=== PATIENT | female | born 1950 | race Caucasian/White ===

== ENCOUNTER 2017-12-11 19:23 | Emergency (ER) | payer OTHER ==
[2017-12-11 20:18] LABS: Absolute Lymphocytes (CBC) 1.4 K/uL (0.7-4.9); Absolute Monocytes 0.5 K/uL (0.1-1.3); Absolute Neutrophil 2.6 K/uL (1.8-8.0); Basophils % 0.6 % (0-1.3); Eosinophils % 2.8 % (0-4.4); Hematocrit 38.1 % (36.0-45.0); Lymphocytes % 29.6 % (15.3-44.8); MCH 25.9 pg (27.0-35.0); MCV 80.2 fL (80-100); MPV 8.1 fL (7.6-11.3); Monocytes % 10.9 % (3.3-12.3); RBC Red Blood Cell Count 4.75 M/uL (3.86-4.86)
[2017-12-11 20:23] LABS: Urine Blood NEGATIVE (NEG); Urine Glucose NEGATIVE (NEG); Urine Protein NEGATIVE (NEG); Urine Specific Gravity 1.015 (1.005-1.030); Urine pH 5.5 (5.0-7.0)
[2017-12-11 20:27] LABS: Protime INR 0.97
[2017-12-11 20:39] LABS: Albumin 4.1 g/dL (3.2-5.5); Bilirubin Direct 0.3 mg/dL (0-0.2); Bilirubin Total 0.8 mg/dL (0.3-1.2); CKMB Creatine Kinase MB 1.2 ng/ml (0.3-4.0); Protein, Total 7.6 g/dL (6.0-8.3)
[2017-12-11 20:40] LABS: Potassium 4.4 mEq/L (3.6-5.0)
[2017-12-11] MEDS ORDERED: ASPIRIN 81 MG CHEWABLE TABLET ONE (20:54)
[2017-12-11] MEDS ORDERED: MAGNESIUM SULFATE 1 gm IVPB 1 GM/100 ML BAG IV ONE (20:54)
[2017-12-11] MEDS ORDERED: NA CHLORIDE 0.9% 1,000 ML ONE (20:54)
--- NOTE | 2017-12-11 21:05 | RAD REPORT ---
EXAM DESCRIPTION: Alex Single View12/11/2017 8:28 pm CLINICAL HISTORY: Hypertension COMPARISON: July 2017 FINDINGS: The lungs appear clear of acute infiltrate. The heart is mildly enlarged. Pacemaker leads are in place. IMPRESSION: No acute abnormalities displayed
[2017-12-11 21:44] LABS: Anisocytosis 1+; Blood Morphology Comment NOTED (NOT SEEN); Platelet Estimate ADEQ; Urine White Blood Cell Casts OK
[2017-12-11 22:41] LABS: CKMB Creatine Kinase MB 1.2 ng/ml (0.3-4.0)
--- NOTE | 2017-12-11 22:50 | ER ---
Nurse's Notes [facility] Name: Maryan Tripp Age: 67 yrs Sex: Female : 1950 Arrival Date: 12/11/2017 Time: 19:27 Bed 28 Private MD: Diagnosis: Chest pain, unspecified-defibrillator firing Presentation: 12/11 19:27 Presenting complaint: EMS states: "Patient was shopping at the mall and when she was in bs1 the elevator her pacemaker went off and patient felt a "shock", and reports her body is tingling all over, patient denies chest pain, shortness of breath or dizziness, blood pressure 115/75, heart rate 46-80s, rhythm going back and forth between sinus sylvie/paced rhythm.". Transition of care: patient was not received from another setting of care. Onset of symptoms was December 11, 2017 at 18:16. Care prior to arrival: None. 19:27 Method Of Arrival: EMS: [facility] bs1 19:27 Acuity: BRAYAN 3 bs1 Historical: - Allergies: 19:43 Sulfa (Sulfonamide Antibiotics); bs1 - Home Meds: 19:43 aspirin 81 mg Oral TbEC 1 tab once daily [Active]; carvedilol 3.125 mg Oral tab 1 tab 2 bs1 times per day [Active]; levothyroxine 100 mcg tab 1 tab once daily [Active]; trazodone 150 mg Oral tab 1 tab nightly [Active]; Plavix Oral [Active]; opreso [Active]; Iron CR Oral [Active]; Protonix Oral [Active]; buspirone 10 mg Oral tab 1 tab 2 times per day [Active]; citalopram 20 mg tab 1 tab once daily [Active]; topiramate Oral once daily [Active]; proair PRN [Active]; - PMHx: 19:43 cardiac stents; COPD; Pacemaker; Thyroid problem; bs1 - PSHx: 19:43 Heart stents; Cholecystectomy; ankle sx; wrist sx; melenoma back; diverticulitis; bs1 Hysterectomy; - Immunization history:: Adult Immunizations up to date. - Social history:: Smoking status: Patient/guardian denies using tobacco. - Family history:: not pertinent. Screenin:59 Abuse screen: Denies threats or abuse. Denies injuries from another. Nutritional bs1 screening: No deficits noted. Tuberculosis screening: No symptoms or risk factors identified. Fall Risk None identified. Assessment: 19:56 General: Appears in no apparent distress. uncomfortable, Behavior is cooperative, bs1 appropriate for age, anxious. Pain: Denies pain. Neuro: Level of Consciousness is awake, alert, obeys commands, Oriented to person, place, time, situation, Appropriate for age President/Gm Production & Live Experiences are equal bilaterally Moves all extremities. Gait is steady, Speech is normal. Cardiovascular: Denies chest pain, lightheadedness, palpitations, shortness of breath, syncope, Heart tones S1 S2 present Capillary refill < 3 seconds Patient's skin is warm and dry. Rhythm is atrial pacer. Cardiovascular: Patient's skin is warm and dry. Patient with Pacemaker. Respiratory: Airway is patent Trachea midline Respiratory effort is even, unlabored, Respiratory pattern is regular, symmetrical, Breath sounds are clear bilaterally. GI: No deficits noted. No signs and/or symptoms were reported involving the gastrointestinal system. Bowel sounds present X 4 quads. : No deficits noted. No signs and/or symptoms were reported regarding the genitourinary system. EENT: No deficits noted. No signs and/or symptoms were reported regarding the EENT system. Derm: No deficits noted. No signs and/or symptoms reported regarding the dermatologic system. Musculoskeletal: Circulation, motion, and sensation intact. Capillary refill < 3 seconds, Range of motion: intact in all extremities. 20:56 Reassessment: Patient appears in no apparent distress at this time. No changes from bs1 previously documented assessment. Patient and/or family updated on plan of care and expected duration. Pain level reassessed. Patient is alert, oriented x 3, equal unlabored respirations, skin warm/dry/pink. Pending lab results. 21:56 Reassessment: Patient appears in no apparent distress at this time. No changes from bs1 previously documented assessment. Patient and/or family updated on plan of care and expected duration. Pain level reassessed. Patient is alert, oriented x 3, equal unlabored respirations, skin warm/dry/pink. Patient anxious waiting for lab results and answers. Redrew cardiac enzymes. Pending results. No further needs at this time. 22:08 Reassessment: [employer] at bedside checking patients pacemaker. bs1 Vital Signs: 19:43 BP 183 / 93; Pulse 74; Resp 15; Temp 98.2(O); Pulse Ox 100% on R/A; Weight 90.26 kg bs1 (R); Height 5 ft. 7 in. (170.18 cm); Pain 0/10; 20:43 BP 147 / 93; Pulse 67; Resp 16; Pulse Ox 99% on R/A; bs1 21:43 BP 154 / 79; Pulse 70; Resp 16; Pulse Ox 98% ; bs1 22:43 BP 167 / 66; Pulse 59; Resp 16; Temp 98.0(O); Pulse Ox 100% on R/A; Pain 0/10; bs1 19:43 Body Mass Index 31.17 (90.26 kg, 170.18 cm) bs1 ED Course: 19:27 Patient arrived in ED. bs1 19:27 Adriana De Leon, SILVIA is Primary Nurse. bs1 19:30 Inserted saline lock: 20 gauge in right antecubital area, using aseptic technique. By bs1 Roslyn Bonilla RN. 19:31 Triage completed. bs1 19:35 Barrera Cool MD is Attending Physician. avani 20:02 Arm band placed on placed. bs1 20:03 Patient has correct armband on for positive identification. Placed in gown. Bed in low bs1 position. Call light in reach. Side rails up X 1. 20:27 X-ray completed. Portable x-ray completed in exam room. Patient tolerated procedure kc2 well. 21:30 Inserted saline lock: 22 gauge in left wrist, using aseptic technique. bs1 21:32 20G right AC infiltrated, new IV started to left wrist. bs1 22:49 Brock Aviles MD is Referral Physician. avani 23:11 No provider procedures requiring assistance completed. IV discontinued, bleeding bs1 controlled, No redness/swelling at site. Pressure dressing applied. Administered Medications: 21:00 Drug: Aspirin Chewable Tablet 162 mg Route: PO; bs1 23:09 Follow up: Response: No adverse reaction bs1 21:00 Drug: NS 0.9% 1000 ml Route: IV; Rate: 125 ml/hr; Site: right antecubital; bs1 21:00 Drug: Magnesium Sulfate 1 grams Route: IVPB; Infused Over: 1 hrs; Site: right bs1 antecubital; 23:13 Follow up: Response: No adverse reaction; IV Status: Completed infusion bs1 Outcome: 22:49 Discharge ordered by MD. varma 23:11 Discharged to home with friend, sent to front lobby to wait for friend. bs1 23:11 Condition: stable 23:11 Discharge instructions given to patient, Instructed on discharge instructions, follow up and referral plans. Demonstrated understanding of instructions, follow-up care, Patient states understanding of POC and following up with a production sampler. 23:13 Patient left the ED. bs1 Signatures: Barrera Cool MD MD cha Carr, Kelsie kc2 Salazar, Brittany, RN RN bs1
--- NOTE | 2017-12-11 22:50 | EDPHYS ---
Physician Documentation [facility] Name: Maryan Tripp Age: 67 yrs Sex: Female : 1950 Arrival Date: 12/11/2017 Time: 19:27 Bed 28 Private MD: ED Physician Barrera Cool HPI: 12/11 19:58 This 67 yrs old Female presents to ER via EMS with complaints of [facility] defibrillator fired x1. 19:58 The patient or guardian reports chest pain that is located primarily in the anterior avani chest wall. Onset: just prior to arrival. The pain does not radiate. Associated signs and symptoms: The patient has no apparent associated signs or symptoms. The chest pain is described as defib firing. Duration: The patient or guardian reports a single episode, that is now resolved. Modifying factors: The symptoms are alleviated by nothing. the symptoms are aggravated by nothing. Severity of pain: At its worst the pain was mild in the emergency department the pain has resolved and did so just prior to arrival. The patient has not experienced similar symptoms in the past. Historical: - Allergies: 19:43 Sulfa (Sulfonamide Antibiotics); bs1 - Home Meds: 19:43 aspirin 81 mg Oral TbEC 1 tab once daily [Active]; carvedilol 3.125 mg Oral tab 1 tab 2 bs1 times per day [Active]; levothyroxine 100 mcg tab 1 tab once daily [Active]; trazodone 150 mg Oral tab 1 tab nightly [Active]; Plavix Oral [Active]; opreso [Active]; Iron CR Oral [Active]; Protonix Oral [Active]; buspirone 10 mg Oral tab 1 tab 2 times per day [Active]; citalopram 20 mg tab 1 tab once daily [Active]; topiramate Oral once daily [Active]; proair PRN [Active]; - PMHx: 19:43 cardiac stents; COPD; Pacemaker; Thyroid problem; bs1 - PSHx: 19:43 Heart stents; Cholecystectomy; ankle sx; wrist sx; melenoma back; diverticulitis; bs1 Hysterectomy; - Immunization history:: Adult Immunizations up to date. - Social history:: Smoking status: Patient/guardian denies using tobacco. - Family history:: not pertinent. ROS: 19:58 Constitutional: Negative for fever, chills, and weight loss, Eyes: Negative for injury, avani pain, redness, and discharge, ENT: Negative for injury, pain, and discharge, Neck: Negative for injury, pain, and swelling, Cardiovascular: Negative for chest pain, palpitations, and edema, Respiratory: Negative for shortness of breath, cough, wheezing, and pleuritic chest pain, Abdomen/GI: Negative for abdominal pain, nausea, vomiting, diarrhea, and constipation, Back: Negative for injury and pain, : Negative for injury, bleeding, discharge, and swelling, MS/Extremity: Negative for injury and deformity, Skin: Negative for injury, rash, and discoloration, Neuro: Negative for headache, weakness, numbness, tingling, and seizure, Psych: Negative for depression, anxiety, suicide ideation, homicidal ideation, and hallucinations, Allergy/Immunology: Negative for hives, rash, and allergies, Endocrine: Negative for neck swelling, polydipsia, polyuria, polyphagia, and marked weight changes, Hematologic/Lymphatic: Negative for swollen nodes, abnormal bleeding, and unusual bruising. Exam: 19:59 Constitutional: This is a well developed, well nourished patient who is awake, alert, avani and in no acute distress. Head/Face: Normocephalic, atraumatic. Eyes: Pupils equal round and reactive to light, extra-ocular motions intact. Lids and lashes normal. Conjunctiva and sclera are non-icteric and not injected. Cornea within normal limits. Periorbital areas with no swelling, redness, or edema. ENT: Nares patent. No nasal discharge, no septal abnormalities noted. Tympanic membranes are normal and external auditory canals are clear. Oropharynx with no redness, swelling, or masses, exudates, or evidence of obstruction, uvula midline. Mucous membranes moist. Neck: Trachea midline, no thyromegaly or masses palpated, and no cervical lymphadenopathy. Supple, full range of motion without nuchal rigidity, or vertebral point tenderness. No Meningismus. Chest/axilla: Normal chest wall appearance and motion. Nontender with no deformity. No lesions are appreciated. Cardiovascular: Regular rate and rhythm with a normal S1 and S2. No gallops, murmurs, or rubs. Normal PMI, no JVD. No pulse deficits. Respiratory: Lungs have equal breath sounds bilaterally, clear to auscultation and percussion. No rales, rhonchi or wheezes noted. No increased work of breathing, no retractions or nasal flaring. Abdomen/GI: Soft, non-tender, with normal bowel sounds. No distension or tympany. No guarding or rebound. No evidence of tenderness throughout. Back: No spinal tenderness. No costovertebral tenderness. Full range of motion. Skin: Warm, dry with normal turgor. Normal color with no rashes, no lesions, and no evidence of cellulitis. MS/ Extremity: Pulses equal, no cyanosis. Neurovascular intact. Full, normal range of motion. Neuro: Awake and alert, GCS 15, oriented to person, place, time, and situation. Cranial nerves II-XII grossly intact. Motor strength 5/5 in all extremities. Sensory grossly intact. Cerebellar exam normal. Normal gait. Psych: Awake, alert, with orientation to person, place and time. Behavior, mood, and affect are within normal limits. Vital Signs: 19:43 BP 183 / 93; Pulse 74; Resp 15; Temp 98.2(O); Pulse Ox 100% on R/A; Weight 90.26 kg bs1 (R); Height 5 ft. 7 in. (170.18 cm); Pain 0/10; 20:43 BP 147 / 93; Pulse 67; Resp 16; Pulse Ox 99% on R/A; bs1 21:43 BP 154 / 79; Pulse 70; Resp 16; Pulse Ox 98% ; bs1 22:43 BP 167 / 66; Pulse 59; Resp 16; Temp 98.0(O); Pulse Ox 100% on R/A; Pain 0/10; bs1 19:43 Body Mass Index 31.17 (90.26 kg, 170.18 cm) bs1 MDM: 19:35 Patient medically screened. [facility] 20:00 Data reviewed: vital signs, nurses notes, EMS record, lab test result(s), EKG, [facility] radiologic studies, plain films. 12/11 19:57 Order name: Basic Metabolic Panel [facility] 12/11 19:57 Order name: BNP [facility] 12/11 19:57 Order name: CBC with Diff [facility] 12/11 19:57 Order name: Ckmb [facility] 12/11 19:57 Order name: CPK [facility] 12/11 19:57 Order name: LFT's [facility] 12/11 19:57 Order name: Magnesium [facility] 12/11 19:57 Order name: PT-INR [facility] 12/11 19:57 Order name: Ptt, Activated [facility] 12/11 19:57 Order name: Troponin (emerg Dept Use Only) [facility] 12/11 19:57 Order name: Lipase [facility] 12/11 19:57 Order name: Urine Culture [facility] 12/11 20:17 Order name: Urine Dipstick--Ancillary (enter results) em1 12/11 20:19 Order name: CBC with Automated Diff; Complete Time: 22:05 EDSD 12/11 20:24 Order name: Urine Dipstick-Ancillary; Complete Time: 21:16 EDSD 12/11 20:32 Order name: Protime (+INR); Complete Time: 21:16 EDSD 12/11 20:32 Order name: PTT, Activated Partial Thromb; Complete Time: 21:16 EDSD 12/11 20:33 Order name: Basic Metabolic Panel; Complete Time: 21:16 EDSD 12/11 20:33 Order name: Lipase; Complete Time: 21:16 EDSD 12/11 20:36 Order name: Troponin (Emerg Dept Use Only); Complete Time: 21:16 EDSD 12/11 20:39 Order name: Liver (Hepatic) Function; Complete Time: 21:16 EDSD 12/11 20:39 Order name: CKMB Creatine Kinase MB; Complete Time: 21:16 EDSD 12/11 20:39 Order name: Magnesium; Complete Time: 21:16 EDSD 12/11 20:39 Order name: BNP B-Type Natriuretic Peptide; Complete Time: 21:16 EDSD 12/11 20:40 Order name: Creatine Phosphokinase; Complete Time: 21:16 EDSD 12/11 21:18 Order name: Ckmb [facility] 12/11 21:18 Order name: Creatine Phosphokinase [facility] 12/11 21:18 Order name: Troponin (emerg Dept Use Only) [facility] 12/11 21:45 Order name: CBC Smear Scan; Complete Time: 22:05 EDSD 12/11 22:38 Order name: Troponin (Emerg Dept Use Only); Complete Time: 22:48 EDSD 12/11 19:57 Order name: XRAY Chest (1 view) [facility] 12/11 19:57 Order name: EKG; Complete Time: 19:58 [facility] 03/20 19:57 Order name: Cardiac monitoring; Complete Time: 20:04 [facility] 12/11 19:57 Order name: EKG - Nurse/Tech; Complete Time: 20:04 [facility] 12/11 19:57 Order name: IV Saline Lock; Complete Time: 20:04 [facility] 12/11 19:57 Order name: Labs collected and sent; Complete Time: 20:04 [facility] 12/11 19:57 Order name: O2 Per Protocol; Complete Time: 20:04 [facility] 12/11 19:57 Order name: O2 Sat Monitoring; Complete Time: 20:04 [facility] 12/11 19:57 Order name: Urine Dipstick-Ancillary (obtain specimen); Complete Time: 20:16 [facility] 12/11 21:06 Order name: RAD; Complete Time: 21:16 EDMS 12/11 21:18 Order name: Repeat Cardiac Enzymes at: 945 pm; Complete Time: 23:09 [facility] 12/11 22:41 Order name: CKMB Creatine Kinase MB; Complete Time: 22:50 EDMS 12/11 22:50 Order name: Creatine Phosphokinase; Complete Time: 22:50 EDMS Administered Medications: 21:00 Drug: Aspirin Chewable Tablet 162 mg Route: PO; bs1 23:09 Follow up: Response: No adverse reaction bs1 21:00 Drug: NS 0.9% 1000 ml Route: IV; Rate: 125 ml/hr; Site: right antecubital; bs1 21:00 Drug: Magnesium Sulfate 1 grams Route: IVPB; Infused Over: 1 hrs; Site: right bs1 antecubital; 23:13 Follow up: Response: No adverse reaction; IV Status: Completed infusion bs1 Disposition: 12/11/17 22:49 Discharged to Home. Impression: Chest pain, unspecified - defibrillator firing. - Condition is Stable. - Discharge Instructions: Nonspecific Chest Pain, Nonspecific Chest Pain, [id number], Electrocardiography, [id number], Aspirin and Your Heart. - Medication Reconciliation Form, Thank You Letter, Antibiotic Education, Prescription Opioid Use form. - Follow up: Private Physician; When: 1 - 2 days; Reason: Recheck today's complaints, Continuance of care, Re-evaluation by your physician. Follow up: Brock Aviles MD; When: 2 - 3 days; Reason: Recheck today's complaints, Re-evaluation by your physician. - Problem is new. - Symptoms have improved. Signatures: Dispatcher [employer] Barrera Lucio MD MD cha Salazar, Brittany, RN RN bs1
[2017-12-11 23:23] VITALS: BP 167/66; TEMP 98; O2SAT 100
--- NOTE | 2017-12-12 05:54 | EKG ---
Test Date: 2017-12-11 Test Time: 19:32:56 [employer] Service Advisor: TOMI MEASUREMENT RESULTS: Intervals: Rate: 73 ME: 162 QRSD: 136 QT: 412 QTc: 453 [place]: P: 18 ME: 162 QRS: -16 T: 243 INTERPRETIVE STATEMENTS: Atrial-sensed ventricular-paced rhythm Compared to ECG 08/03/2017 13:43:29 No significant changes Electronically Signed On 12-12-17 05:54:13 CDT by Ruben Rosa
== END 2017-12-11 23:13 | disposition home or self-care (01) ==
LOC: ER 19:23
DX: T82.198A Other mechanical complication of other cardiac electronic device, initial encounter (principal); J44.9 Chronic obstructive pulmonary disease, unspecified; E07.9 Disorder of thyroid, unspecified; Z95.818 Presence of other cardiac implants and grafts; Z95.810 Presence of automatic (implantable) cardiac defibrillator; Z88.2 Allergy status to sulfonamides; Z79.01 Long term (current) use of anticoagulants; Z79.82 Long term (current) use of aspirin
CPT/HCPCS: 36415; 71045; 80048; 80076; 81003; 82550 ×2; 82553 ×2; 83690; 83735; 83880; 84484 ×2; 85025; 85610; 85730; 87086; 87088; 93005; 96365; 96366; 99284; J3475; J7030

== ENCOUNTER 2018-02-14 18:27 | Observation (INO) | payer OTHER ==
[2018-02-14] MEDS ORDERED: NITROGLYCERIN 0.4 MG/TAB SL ONE (19:16)
[2018-02-14] MEDS ORDERED: NA CHLORIDE 0.9% 500 ML ONE (19:36)
--- NOTE | 2018-02-14 20:07 | RAD REPORT ---
EXAM DESCRIPTION: Alex Single View02/14/2018 7:08 pm CLINICAL HISTORY: Chest pain COMPARISON: November 2017 FINDINGS: The lungs appear clear of acute infiltrate. The heart is mildly enlarged. Pacemaker leads are in place. IMPRESSION: No acute abnormalities displayed
[2018-02-14] MEDS ORDERED: Morphine 2 MG/2 ML SYR ONE ×2 (21:31→23:37)
[2018-02-14 22:04] LABS: Absolute Lymphocytes (CBC) 1.1 K/uL (0.7-4.9); Absolute Monocytes 0.5 K/uL (0.1-1.3); Absolute Neutrophil 2.5 K/uL (1.8-8.0); Basophils % 0.7 % (0-1.3); Eosinophils % 3.1 % (0-4.4); Hematocrit 38.2 % (36.0-45.0); Lymphocytes % 25.6 % (15.3-44.8); MCH 27.7 pg (27.0-35.0); MCV 84.2 fL (80-100); MPV 8.1 fL (7.6-11.3); Monocytes % 11.2 % (3.3-12.3); RBC Red Blood Cell Count 4.54 M/uL (3.86-4.86)
[2018-02-14 22:07] LABS: Protime INR 0.94
[2018-02-14 22:09] LABS: Potassium 3.5 mEq/L (3.6-5.0)
[2018-02-14 22:16] LABS: Albumin 3.9 g/dL (3.2-5.5); Bilirubin Direct 0.1 mg/dL (0-0.2); Bilirubin Total 0.6 mg/dL (0.3-1.2)
[2018-02-14 22:18] LABS: CKMB Creatine Kinase MB 1.1 ng/ml (0.3-4.0)
[2018-02-14] MEDS ORDERED: ENOXAPARIN 80 MG/0.8 ML SQ ONE (23:36)
--- NOTE | 2018-02-14 23:51 | ER ---
Nurse's Notes [facility] Name: Maryan Tripp Age: 68 yrs Sex: Female : 1950 Arrival Date: 02/14/2018 Time: 18:33 Bed 6 Private MD: Diagnosis: Chest pain, unspecified Presentation: 02/14 18:36 Presenting complaint: EMS states: Patient reports her ICD has been "going off" and is ae1 experiencing chest pain 12/01. Transition of care: patient was not received from another setting of care. Onset of symptoms was February 14, 2018. Risk Assessment: Do you want to hurt yourself or someone else? Patient reports no desire to harm self or others. Care prior to arrival: Medication(s) given: ASA, 81 mg, x 4. 18:36 Method Of Arrival: EMS: [facility] ae1 18:36 Acuity: BRAYAN 2 ae1 18:48 Initial Sepsis Screen: Does the patient meet any 2 criteria? No. Patient's initial ae1 sepsis screen is negative. Does the patient have a suspected source of infection? No. Patient's initial sepsis screen is negative. Triage Assessment: 18:41 General: Appears in no apparent distress. comfortable, Behavior is calm, cooperative. ae1 Pain: Complains of pain in chest Pain currently is 3 out of 10 on a pain scale. Neuro: Level of Consciousness is awake, alert, obeys commands, Oriented to person, place, time, situation. Cardiovascular: Patient's skin is warm and dry. Respiratory: Airway is patent Respiratory effort is even, unlabored, Respiratory pattern is regular, symmetrical. Historical: - Allergies: 18:47 Sulfa (Sulfonamide Antibiotics); ae1 - Home Meds: 18:47 aspirin 81 mg Oral TbEC 1 tab once daily [Active]; buspirone 10 mg Oral tab 1 tab 2 ae1 times per day [Active]; carvedilol 3.125 mg Oral tab 1 tab 2 times per day [Active]; citalopram 20 mg tab 1 tab once daily [Active]; Iron CR Oral [Active]; levothyroxine 100 mcg tab 1 tab once daily [Active]; opreso [Active]; Plavix 75 mg oral tab [Active]; proair PRN [Active]; Protonix Oral [Active]; topiramate Oral once daily [Active]; trazodone 150 mg Oral tab 1 tab nightly [Active]; - PMHx: 18:47 cardiac stents; COPD; Pacemaker; Thyroid problem; ae1 - Immunization history:: Adult Immunizations up to date, Pneumococcal vaccine is up to date, Flu vaccine is up to date. - Social history:: Smoking status: Patient/guardian denies using tobacco, but has a distant history of tobacco abuse. - Ebola Screening: : Patient negative for fever greater than or equal to 101.5 degrees Fahrenheit, and additional compatible Ebola Virus Disease symptoms. Screenin:48 Abuse screen: Denies threats or abuse. Nutritional screening: No deficits noted. ae1 Tuberculosis screening: No symptoms or risk factors identified. Fall Risk None identified. Assessment: 18:49 Pain: Pain began suddenly. ae1 19:10 General: Appears in no apparent distress. uncomfortable, Behavior is calm, cooperative, ao appropriate for age. Pain: Complains of pain in chest Pain does not radiate. Pain currently is 6 out of 10 on a pain scale. Neuro: Level of Consciousness is awake, alert, obeys commands, Oriented to person, place, time, situation, Appropriate for age Moves all extremities. Speech is normal, Facial symmetry appears normal. Cardiovascular: Capillary refill < 3 seconds Patient's skin is warm and dry. Respiratory: Airway is patent Respiratory effort is even, unlabored, Respiratory pattern is regular, symmetrical. GI: Abdomen is non-distended. : No signs and/or symptoms were reported regarding the genitourinary system. EENT: No signs and/or symptoms were reported regarding the EENT system. Derm: No signs and/or symptoms reported regarding the dermatologic system. 19:48 Reassessment: Patient BP drop after given Nitro Sublingual. Les ROOM MAID notified and ao order 500 ML bolus. 20:30 Reassessment: Patient appears in no apparent distress at this time. Patient and/or ao family updated on plan of care and expected duration. Pain level reassessed. Patient is alert, oriented x 3, equal unlabored respirations, skin warm/dry/pink. 21:52 Reassessment: Patient appears in no apparent distress at this time. Patient and/or ao family updated on plan of care and expected duration. Pain level reassessed. Patient is alert, oriented x 3, equal unlabored respirations, skin warm/dry/pink. Started an guided ultrasound IV since lab was called few times and no one show up. Blood has been drawn and send. 22:40 Reassessment: Patient appears in no apparent distress at this time. Patient and/or ao family updated on plan of care and expected duration. Pain level reassessed. Patient is alert, oriented x 3, equal unlabored respirations, skin warm/dry/pink. 22:40 Reassessment: Patient appears in no apparent distress at this time. Patient and/or ao family updated on plan of care and expected duration. Pain level reassessed. Patient is alert, oriented x 3, equal unlabored respirations, skin warm/dry/pink. Patient to be admitted to the hospital. Patient agree with the POC. 23:40 Reassessment: Patient appears in no apparent distress at this time. Patient and/or ao family updated on plan of care and expected duration. Pain level reassessed. Patient is alert, oriented x 3, equal unlabored respirations, skin warm/dry/pink. 02/15 00:48 Reassessment: Patient appears in no apparent distress at this time. Patient and/or ao family updated on plan of care and expected duration. Pain level reassessed. Patient is alert, oriented x 3, equal unlabored respirations, skin warm/dry/pink. Patient to be taken to her hospital bed. 01:15 Reassessment: report called to Monika VEGA for room 424. bb Vital Signs: 02/14 18:34 BP 167 / 82; Pulse 61; Resp 17; Temp 97.8(O); Pulse Ox 96% on R/A; Weight 90.72 kg (R); ae1 19:10 BP 155 / 74; Pulse 66; Resp 18; Pulse Ox 98% ; Pain 6/10; ao 19:40 BP 92 / 62; Pulse 62; Resp 16; Pulse Ox 96% ; ao 19:52 BP 107 / 64; Pulse 70; Resp 16; Pulse Ox 96% ; Pain 4/10; ao 20:50 BP 135 / 64; Pulse 64; Resp 16; Pulse Ox 97% on R/A; ao 21:52 BP 142 / 75; Pulse 60; Resp 16; Pulse Ox 98% ; Pain 0/10; ao 22:40 BP 138 / 54; Pulse 64; Resp 18; Pulse Ox 98% on R/A; Pain 0/10; ao 23:39 BP 137 / 52; Pulse 62; Resp 18; Pulse Ox 97% ; ao 23:40 BP 128 / 54; Pulse 64; Resp 18; Pulse Ox 98% on R/A; ao 02/15 00:48 BP 124 / 53; Pulse 64; Resp 16; Pulse Ox 100% on R/A; ao ED Course: 02/14 18:33 Patient arrived in ED. ae1 18:41 Triage completed. ae1 18:42 Arm band placed on right wrist. EKG completed in triage. Results shown to MD. ae1 18:44 Les Moore NP is PHCP. pm1 18:44 Sonu Zuluaga MD is Attending Physician. pm1 18:48 Placed in gown. Bed in low position. Call light in reach. Side rails up X2. Cardiac ae1 monitor on. Pulse ox on. NIBP on. Warm blanket given. 18:48 Patient maintains SpO2 saturation greater than 95% on room air. ae1 19:06 X-ray completed. Portable x-ray completed in exam room. Patient tolerated procedure ml well. 19:07 XRAY Chest (1 view) In Process Unspecified. EDMS 19:09 Chidi Carlson, RN is Primary Nurse. ao 21:50 Inserted saline lock: 20 gauge in right antecubital area, using aseptic technique. ao ,using aseptic technique. Ultrasound guided IV Blood collected. 23:49 Juan Pizarro MD is Hospitalizing Provider. pm1 02/15 01:16 No provider procedures requiring assistance completed. Patient admitted, IV remains in bb place. Administered Medications: 02/14 19:19 Drug: Nitroglycerin 0.4 mg Route: Sublingual; ao 19:47 Drug: NS 0.9% 500 ml Route: IV; Rate: bolus; Site: left antecubital; ao 21:20 Drug: morphine 2 mg Route: IVP; Site: left antecubital; ao 23:35 Drug: morphine 2 mg Route: IVP; Site: left antecubital; ao 23:48 Drug: Lovenox 1 mg/kg Route: Sub-Q; Site: abdomen; ao Outcome: 23:50 Decision to Hospitalize by Provider. pm1 02/15 01:16 Admitted to Tele accompanied by tech, via wheelchair, room 424, with chart, Report bb called to Monika VEGA Condition: stable Instructed on the need for admit. 02:06 Patient left the ED. ao Signatures: Dispatcher [employer] EDDaxa Soni RN RN Isabel Tena Alex, RN RN Les Wolff, ROOM MAID ROOM MAID pm1 Ray Gutierres RN RN ae1
--- NOTE | 2018-02-14 23:51 | EDPHYS ---
Physician Documentation [facility] Name: Maryan Tripp Age: 68 yrs Sex: Female : 1950 Arrival Date: 02/14/2018 Time: 18:33 Bed 6 Private MD: ED Physician Sonu Zuluaga HPI: 02/14 22:47 This 68 yrs old Female presents to ER via EMS with complaints of Chest Pain. pm1 22:47 The patient or guardian reports chest pain that is located primarily in the anterior pm1 aspect of left upper chest. Onset: today. The pain radiates to the left arm, left jaw. Associated signs and symptoms: Pertinent positives: diaphoresis, Pertinent negatives: abdominal pain, dizziness, headache, nausea, palpitations, shortness of breath, vomiting. The chest pain is described as aching. Duration: The patient or guardian reports a single episode, that is still ongoing. Modifying factors: The symptoms are alleviated by nothing. the symptoms are aggravated by nothing. Severity of pain: in the emergency department the pain is actually worse is a 3 / 10. EMS care prior to arrival includes: aspirin. The patient has experienced similar episodes in the past, several times. Patient last seen here in the ER for discharge of defibrillator on 12/11/2017. Interrogated and determined inappropriate discharge of defibrillator and discharged home. Patient has had no further discharge of defibrillator since then. 22:47 pacemaker/defibrillator 2008 and cardiac stent x 1. pm1 22:47 Onset of chest pain 1400 today. pm1 23:57 Patient's last cardiac cath, stress test and echocardiogram performed in 2014 in [email or web address] Historical: - Allergies: 18:47 Sulfa (Sulfonamide Antibiotics); ae1 - Home Meds: 18:47 aspirin 81 mg Oral TbEC 1 tab once daily [Active]; buspirone 10 mg Oral tab 1 tab 2 ae1 times per day [Active]; carvedilol 3.125 mg Oral tab 1 tab 2 times per day [Active]; citalopram 20 mg tab 1 tab once daily [Active]; Iron CR Oral [Active]; levothyroxine 100 mcg tab 1 tab once daily [Active]; opreso [Active]; Plavix 75 mg oral tab [Active]; proair PRN [Active]; Protonix Oral [Active]; topiramate Oral once daily [Active]; trazodone 150 mg Oral tab 1 tab nightly [Active]; - PMHx: 18:47 cardiac stents; COPD; Pacemaker; Thyroid problem; ae1 - Immunization history:: Adult Immunizations up to date, Pneumococcal vaccine is up to date, Flu vaccine is up to date. - Social history:: Smoking status: Patient/guardian denies using tobacco, but has a distant history of tobacco abuse. - Ebola Screening: : Patient negative for fever greater than or equal to 101.5 degrees Fahrenheit, and additional compatible Ebola Virus Disease symptoms. ROS: 23:46 Constitutional: Negative for fever, chills, and weight loss, Eyes: Negative for injury, pm1 pain, redness, and discharge, ENT: Negative for injury, pain, and discharge, Neck: Negative for injury, pain, and swelling. 23:46 Respiratory: Negative for shortness of breath, cough, wheezing, and pleuritic chest pain, Abdomen/GI: Negative for abdominal pain, nausea, vomiting, diarrhea, and constipation, Back: Negative for injury and pain, : Negative for injury, bleeding, discharge, and swelling, MS/Extremity: Negative for injury and deformity, Skin: Negative for injury, rash, and discoloration, Neuro: Negative for headache, weakness, numbness, tingling, and seizure. 23:46 Cardiovascular: Positive for chest pain, Negative for edema, orthopnea, palpitations. Exam: 23:46 Constitutional: This is a well developed, well nourished patient who is awake, alert, pm1 and in no acute distress. Head/Face: Normocephalic, atraumatic. Eyes: Pupils equal round and reactive to light, extra-ocular motions intact. Lids and lashes normal. Conjunctiva and sclera are non-icteric and not injected. Cornea within normal limits. Periorbital areas with no swelling, redness, or edema. ENT: Nares patent. No nasal discharge, no septal abnormalities noted. Tympanic membranes are normal and external auditory canals are clear. Oropharynx with no redness, swelling, or masses, exudates, or evidence of obstruction, uvula midline. Mucous membranes moist. Neck: Trachea midline, no thyromegaly or masses palpated, and no cervical lymphadenopathy. Supple, full range of motion without nuchal rigidity, or vertebral point tenderness. No Meningismus. Chest/axilla: Normal chest wall appearance and motion. Nontender with no deformity. No lesions are appreciated. 23:46 Respiratory: Lungs have equal breath sounds bilaterally, clear to auscultation and percussion. No rales, rhonchi or wheezes noted. No increased work of breathing, no retractions or nasal flaring. Abdomen/GI: Soft, non-tender, with normal bowel sounds. No distension or tympany. No guarding or rebound. No evidence of tenderness throughout. Back: No spinal tenderness. No costovertebral tenderness. Full range of motion. Skin: Warm, dry with normal turgor. Normal color with no rashes, no lesions, and no evidence of cellulitis. MS/ Extremity: Pulses equal, no cyanosis. Neurovascular intact. Full, normal range of motion. 23:46 Cardiovascular: Rate: normal, Pulses: no pulse deficits are appreciated, Pulses are 2+ in right radial artery and left radial artery. Heart sounds: normal, Edema: is not appreciated. 23:46 ECG was reviewed by the Attending Physician. ventricular paced 23:46 Neuro: Orientation: is normal, Motor: is normal, moves all fours, Sensation: is normal, no obvious gross deficits. Vital Signs: 18:34 BP 167 / 82; Pulse 61; Resp 17; Temp 97.8(O); Pulse Ox 96% on R/A; Weight 90.72 kg (R); ae1 19:10 BP 155 / 74; Pulse 66; Resp 18; Pulse Ox 98% ; Pain 6/10; ao 19:40 BP 92 / 62; Pulse 62; Resp 16; Pulse Ox 96% ; ao 19:52 BP 107 / 64; Pulse 70; Resp 16; Pulse Ox 96% ; Pain 4/10; ao 20:50 BP 135 / 64; Pulse 64; Resp 16; Pulse Ox 97% on R/A; ao 21:52 BP 142 / 75; Pulse 60; Resp 16; Pulse Ox 98% ; Pain 0/10; ao 22:40 BP 138 / 54; Pulse 64; Resp 18; Pulse Ox 98% on R/A; Pain 0/10; ao 23:39 BP 137 / 52; Pulse 62; Resp 18; Pulse Ox 97% ; ao 23:40 BP 128 / 54; Pulse 64; Resp 18; Pulse Ox 98% on R/A; ao 02/15 00:48 BP 124 / 53; Pulse 64; Resp 16; Pulse Ox 100% on R/A; ao MDM: 02/14 18:44 Patient medically screened. pm1 23:58 Data reviewed: vital signs. Physician consultation: Juan Pizarro MD was called at pm1 23:58, was contacted at 23:58, regarding admission, patient's condition, and will see patient. 02/14 18:51 Order name: Basic Metabolic Panel; Complete Time: 22:40 pm02/14 18:51 Order name: BNP; Complete Time: 22:40 pm02/14 18:51 Order name: CBC with Diff; Complete Time: 22:40 pm02/14 18:51 Order name: Ckmb; Complete Time: 22:40 pm02/14 18:51 Order name: CPK; Complete Time: 22:40 pm02/14 18:51 Order name: LFT's; Complete Time: 22:40 pm02/14 18:51 Order name: Magnesium; Complete Time: 22:40 pm02/14 18:51 Order name: PT-INR; Complete Time: 22:40 pm02/14 18:51 Order name: Ptt, Activated; Complete Time: 22:40 pm02/14 18:51 Order name: Troponin (emerg Dept Use Only); Complete Time: 22:16 pm02/14 18:51 Order name: XRAY Chest (1 view); Complete Time: 20:17 pm02/14 18:51 Order name: EKG; Complete Time: 18:52 pm02/14 18:51 Order name: Cardiac monitoring; Complete Time: 19:06 pm02/14 18:51 Order name: EKG - Nurse/Tech; Complete Time: 19:06 pm02/14 18:51 Order name: IV Saline Lock; Complete Time: 19:06 pm02/14 18:51 Order name: Labs collected and sent; Complete Time: 21:49 pm02/14 18:51 Order name: O2 Per Protocol; Complete Time: 19:06 pm02/14 18:51 Order name: O2 Sat Monitoring; Complete Time: 19:06 pm02/14 18:51 Order name: Urine Dipstick-Ancillary (obtain specimen); Complete Time: 21:50 pm1 Administered Medications: 19:19 Drug: Nitroglycerin 0.4 mg Route: Sublingual; ao 19:47 Drug: NS 0.9% 500 ml Route: IV; Rate: bolus; Site: left antecubital; ao 21:20 Drug: morphine 2 mg Route: IVP; Site: left antecubital; ao 23:35 Drug: morphine 2 mg Route: IVP; Site: left antecubital; ao 23:48 Drug: Lovenox 1 mg/kg Route: Sub-Q; Site: abdomen; ao Disposition: 02/15 10:47 Co-signature as Attending Physician, Sonu Zuluaga MD I agree with the assessment and kdr plan of care. Disposition: 02/14/18 23:50 Hospitalization ordered by Juan Pizarro for Observation. Preliminary diagnosis is Chest pain, unspecified. - Bed requested for Telemetry/MedSurg (observation). - Status is Observation. ao - Condition is Stable. - Problem is new. - Symptoms have improved. UTI on Admission? No Signatures: Dispatcher [employer] EDNJ Mariel Corea RN RN mw Rittger, Kevin, MD MD [facility] Chidi Carlson RN RN ao Marinas, Patrick, SOCIAL WORK LECTURER SOCIAL WORK LECTURER pm1 Ray Gutierres RN RN ae1 Corrections: (The following items were deleted from the chart) 02/14 23:57 23:50 Hospitalization Ordered by Juan Pizarro MD for Observation. Preliminary mw diagnosis is Chest pain, unspecified. Bed requested for Telemetry/MedSurg (observation). Status is Observation. Condition is Stable. Problem is new. Symptoms have improved. UTI on Admission? No. pm1 02/15 02:06 02/14 23:57 02/14/2018 23:50 Hospitalization Ordered by Juan Pizarro MD for ao Observation. Preliminary diagnosis is Chest pain, unspecified. Bed requested for Telemetry/MedSurg (observation). Status is Observation. Condition is Stable. Problem is new. Symptoms have improved. UTI on Admission? No. mw
[2018-02-15] MEDS ORDERED: ACETAMINOPHEN 500 MG TAB PO PRN (01:03)
[2018-02-15] MEDS ORDERED: MORPHINE 4 MG/ML SYR IV PRN (01:03)
[2018-02-15] MEDS ORDERED: ALPRAZOLAM 0.25 MG TABLET PO PRN (01:03)
[2018-02-15 02:37] VITALS: BMI 31.8
[2018-02-15] MEDS ORDERED: POTASSIUM 25 MEQ EFFERV TAB PO ONE (03:00)
[2018-02-15] MEDS ORDERED: FUROSEMIDE 20 MG TABLET PO PRN (06:12)
[2018-02-15] MEDS ORDERED: LEVOTHYROXINE SOD 0.1 MG TAB PO SCH (06:39)
--- NOTE | 2018-02-15 06:56 | EKG ---
Test Date: 2018-02-14 Test Time: 18:34:38 Director Medical Economics: ANDREINA MEASUREMENT RESULTS: Intervals: Rate: 63 MD: 174 QRSD: 128 QT: 432 QTc: 442 [place]: P: 22 MD: 174 QRS: 16 T: -62 INTERPRETIVE STATEMENTS: Atrial-sensed ventricular-paced rhythm Abnormal ECG Compared to ECG 12/11/2017 19:32:56 No significant changes Electronically Signed On 02-15-18 06:55:09 CDT by Brock Aviles
[2018-02-15] MEDS ORDERED: BUSPIRONE HCL 5 MG TABLET PO PRN (07:00)
[2018-02-15 08:38] VITALS: O2SAT 94
[2018-02-15] MEDS ORDERED: CARVEDILOL 3.125 MG TAB PO SCH (09:00)
[2018-02-15] MEDS ORDERED: ASPIRIN EC 81 MG TAB PO SCH (09:00)
[2018-02-15] MEDS ORDERED: ENOXAPARIN 40 MG/0.4 ML SQ SCH (09:00)
[2018-02-15] MEDS ORDERED: CITALOPRAM 10 MG TABLET PO SCH (09:00)
[2018-02-15] MEDS ORDERED: METOPROLOL TAR 50 MG TAB PO SCH (09:00)
[2018-02-15] MEDS ORDERED: MESALAMINE PO SCH (09:00)
[2018-02-15] MEDS ORDERED: CLOPIDOGREL 75 MG TABLET PO SCH (09:00)
[2018-02-15] MEDS ORDERED: PANTOPRAZOLE 40MG TABLET PO SCH (09:00)
[2018-02-15] MEDS ORDERED: ASPIRIN 81 MG CHEWABLE TABLET PO SCH (09:00)
--- NOTE | 2018-02-15 09:18 | P.HP ---
Certification for Inpatient Patient admitted to: Observation With expected LOS: <2 Midnights Patient will require the following post-hospital care: None Practitioner: I am a practitioner with admitting privileges, knowledge of patient current condition, hospital course, and medical plan of care. Services: Services provided to patient in accordance with Admission requirements found in Title 42 Section 412.3 of the Code of Federal Regulations Patient History Date of Service: 02/15/18 Reason for admission: CP r/o ACS History of Present Illness: Patient is a 68yo who was admitted to the hospital with chest discomfort. Patient was given nitro and morphine and her chest pain resolved. Patient also has some numbness and tingling of the left side of her are mentioned. That has resolved as well. Patient does have a history of coronary artery disease with stent placement. Patient also had a defibrillator placed. She had a shot deployed about a month ago. However her workup did not reveal any abnormal rhythms. The settings of the machine required adjustments. At this time, patient will be admitted to the hospital and will be ruled out for acute coronary syndrome. Patient will have serial troponins and will get cardiac workup prior to discharge. Allergies Sulfa (Sulfonamide Antibiotics) Allergy (Verified 12/22/16 21:05) Anaphylaxis Home Medications: Buspirone HCl [Buspar] 10 mg PO BID PRN 08/15/16 Levothyroxine [Synthroid*] 0.1 mg PO DAILY 08/15/16 Trazodone [Desyrel*] 150 mg PO BEDTIME 08/15/16 Aspirin 81 mg PO DAILY 08/03/17 Carvedilol 3.125 mg PO BID 08/03/17 Citalopram Hydrobromide [Citalopram HBr] 20 mg PO DAILY 08/03/17 Clopidogrel Bisulfate [Plavix] 75 mg PO DAILY 08/03/17 Ferrous Sulfate [Ferrous Sulfate*] 325 mg PO DAILY 02/15/18 Furosemide [Lasix] 20 mg PO DAILY PRN 02/15/18 Mesalamine [Apriso] 0.375 mg PO BID 02/15/18 Pantoprazole [Protonix Tab] 40 mg PO DAILY 02/15/18 - Past Medical/Surgical History Has patient received pneumonia vaccine in the past: Yes Diabetic: No -: Coronary artery disease, stent x1 -: Internal carotid defibrillator -: COPD -: Hypertension -: Hyperlipidemia -: Depression with anxiety -: Hypothyroidism -: Peripheral vascular disease -: diverticulosis -: Internal carotid defibrillator -: Cardiac stent -: leny -: hysterectomy -: left hip -: right ankle -: right wrist -: left shoulder skin cancer removed Psychosocial/ Personal History: She is , she has 1 child, she does not work. - Family History Mother Medical History: Cancer, Other (see notes) Notes: dementia Father Medical History: Heart disease - Social History Smoking Status: Never smoker Alcohol use: Yes CD- Drugs: No Caffeine use: Yes Place of Residence: Home Review of Systems 10-point ROS is otherwise unremarkable Physical Examination - Vital Signs Temperature: 97.6 F Blood Pressure: 151/70 Pulse: 61 Respirations: 18 Pulse Ox (%): 93 - Physical Exam General: Alert, In no apparent distress, Oriented x3 HEENT: Atraumatic, PERRLA, Mucous membr. moist/pink, EOMI, Sclerae nonicteric Neck: Supple, 2+ carotid pulse no bruit, No LAD, Without JVD or thyroid abnormality Respiratory: Clear to auscultation bilaterally, Normal air movement Cardiovascular: Regular rate/rhythm, Normal S1 S2, No murmurs Gastrointestinal: Normal bowel sounds, Soft and benign, Non-distended, No tenderness Musculoskeletal: No clubbing, No swelling, No tenderness Integumentary: No rashes Neurological: Normal gait, Normal speech, Normal strength at 5/5 x4 extr, Normal tone, Sensation intact, Cranial nerves 3-12 intact, Normal affect Lymphatics: No axilla or inguinal lymphadenopathy - Studies Laboratory Data (last 24 hrs) 02/14/18 21:44: PT 11.1, INR 0.94, APTT 26.1 02/14/18 21:44: WBC 4.3, Hgb 12.6, Hct 38.2, Plt Count 253 02/14/18 21:44: B-Natriuretic Peptide 77 02/14/18 21:44: Sodium 140, Potassium 3.5 L, BUN 12, Creatinine 0.91, Glucose 103, Magnesium 2.0, Total Bilirubin 0.6, AST 57 H, ALT 21, Alkaline Phosphatase 75 Assessment & Plan - Problems (Diagnosis) (1) Chest pain, rule out acute myocardial infarction Current Visit: Yes Status: Acute (2) History of coronary artery disease Current Visit: No Status: Acute (3) COPD (chronic obstructive pulmonary disease) Onset Date: 08/16/16 Current Visit: No Status: Chronic Qualifiers: (4) History of implantable cardioverter-defibrillator (ICD) placement Current Visit: No Status: Chronic (5) Hyperlipidemia Onset Date: 08/16/16 Current Visit: No Status: Chronic Qualifiers: (6) Hypertension Onset Date: 08/16/16 Current Visit: No Status: Chronic Qualifiers: (7) Hypothyroidism Onset Date: 08/16/16 Current Visit: No Status: Chronic Qualifiers: (8) Osteoporosis Onset Date: 08/16/16 Current Visit: No Status: Chronic - Plan 1. Serial troponins and EKG 2. Cardiology consultation 3. Echocardiogram and stress test 4. Anti-platelet therapy, anti coagulation, beta-reena, statin, and O2 as needed 5. IV morphine for pain 6. Nitro p.r.n. - Advance Directives Does patient have a Living Will: No Does patient have a Durable POA for Healthcare: No - Code Status/Comfort Care Code Status Assessed: Yes Code Status: Full Code Critical Care: No Time Spent Managing PTS Care (In Minutes): 50
--- NOTE | 2018-02-15 09:21 | P.SSS ---
Patient History Date of Service: 02/15/18 Reason for admission: CP r/o ACS History of Present Illness: Patient is a 68yo who was admitted to the hospital with chest discomfort. Patient was given nitro and morphine and her chest pain resolved. Patient also has some numbness and tingling of the left side of her are mentioned. That has resolved as well. Patient does have a history of coronary artery disease with stent placement. Patient also had a defibrillator placed. She had a shot deployed about a month ago. However her workup did not reveal any abnormal rhythms. The settings of the machine required adjustments. At this time, patient will be admitted to the hospital and will be ruled out for acute coronary syndrome. Patient will have serial troponins and will get cardiac workup prior to discharge. Allergies Sulfa (Sulfonamide Antibiotics) Allergy (Verified 12/22/16 21:05) Anaphylaxis Home Medications: Buspirone HCl [Buspar] 10 mg PO BID PRN 08/15/16 Levothyroxine [Synthroid*] 0.1 mg PO DAILY 08/15/16 Trazodone [Desyrel*] 150 mg PO BEDTIME 08/15/16 Aspirin 81 mg PO DAILY 08/03/17 Carvedilol 3.125 mg PO BID 08/03/17 Citalopram Hydrobromide [Citalopram HBr] 20 mg PO DAILY 08/03/17 Clopidogrel Bisulfate [Plavix*] 75 mg PO DAILY 08/03/17 Ferrous Sulfate [Ferrous Sulfate*] 325 mg PO DAILY 02/15/18 Furosemide [Lasix*] 20 mg PO DAILY PRN 02/15/18 Mesalamine [Apriso] 0.375 mg PO BID 02/15/18 Pantoprazole [Protonix Tab*] 40 mg PO DAILY 02/15/18 - Past Medical/Surgical History Has patient received pneumonia vaccine in the past: Yes Diabetic: No -: Coronary artery disease, stent x1 -: Internal carotid defibrillator -: COPD -: Hypertension -: Hyperlipidemia -: Depression with anxiety -: Hypothyroidism -: Peripheral vascular disease -: diverticulosis -: Internal carotid defibrillator -: Cardiac stent -: leny -: hysterectomy -: left hip -: right ankle -: right wrist -: left shoulder skin cancer removed Psychosocial/ Personal History: She is , she has 1 child, she does not work. - Family History Mother -: Cancer, Other (see notes) Notes: dementia Father -: Heart disease - Social History Smoking Status: Never smoker Alcohol use: Yes CD- Drugs: No Caffeine use: Yes Place of Residence: Home Physical Examination - Vital Signs Temperature: 97.6 F Blood Pressure: 151/70 Pulse: 61 Respirations: 18 Pulse Ox (%): 93 - Studies Laboratory Data (last 24 hrs) 02/14/18 21:44: PT 11.1, INR 0.94, APTT 26.1 02/14/18 21:44: WBC 4.3, Hgb 12.6, Hct 38.2, Plt Count 253 02/14/18 21:44: B-Natriuretic Peptide 77 02/14/18 21:44: Sodium 140, Potassium 3.5 L, BUN 12, Creatinine 0.91, Glucose 103, Magnesium 2.0, Total Bilirubin 0.6, AST 57 H, ALT 21, Alkaline Phosphatase 75 - Diagnosis (Problem(s)) (1) Chest pain, rule out acute myocardial infarction Current Visit: Yes Status: Acute (2) History of coronary artery disease Current Visit: No Status: Acute (3) COPD (chronic obstructive pulmonary disease) Onset Date: 08/16/16 Current Visit: No Status: Chronic Qualifiers: (4) History of implantable cardioverter-defibrillator (ICD) placement Current Visit: No Status: Chronic (5) Hyperlipidemia Onset Date: 08/16/16 Current Visit: No Status: Chronic Qualifiers: (6) Hypertension Onset Date: 08/16/16 Current Visit: No Status: Chronic Qualifiers: (7) Hypothyroidism Onset Date: 08/16/16 Current Visit: No Status: Chronic Qualifiers: (8) Osteoporosis Onset Date: 08/16/16 Current Visit: No Status: Chronic - Disposition Disposition: ROUTINE DISCHARGE Condition: GOOD Patient Discharge Instructions: OK TO DC IV AND DC HOME. FOLLOW-UP WITH PRIMARY CARE PROVIDER IN 1-2 WEEKS. FOLLOW-UP WITH CARDIOLOGY,Dr. Boateng, IN 1- 2 WEEKS. RETURN TO THE ER IF symptoms worsen. CALL or TEXT DR. WHYTE AT IF ANY QUESTIONS REGARDING HOSPITAL STAY. PLEASE CALL THE FLOOR AT IF ANY MEDICATION OR NURSING QUESTIONS. Diet: AHA Activity: Fall precautions
[2018-02-15] MEDS ORDERED: REGADENOSON 0.4 MG/5 ML SYR IV ONE (09:49)
[2018-02-15 11:43] VITALS: BP 141/78
--- NOTE | 2018-02-15 11:46 | RAD REPORT ---
EXAM DESCRIPTION: NM - Rest Stress Cardiac Imaging - 02/15/2018 11:02 am CLINICAL HISTORY: Chest pain. COMPARISON: None. TECHNIQUE: The patient was administered approximately 10mCi of Tc 99m Sestamibi prior to resting SPE CT imaging of the heart. The patient was then administered approximately 30 mCi of Tc 99m Sestamibi f ollowing exercise or pharmacologic stress. Multiplanar SPECT images were reviewed. FINDINGS: Mild diminished radiopharmaceutical accumulation is seen LV apex with stress. No fixed def ect is seen to suggest hibernating myocardium or scarred myocardium. Mild diminished anterior wall r adiopharmaceutical accumulation favored to represent breast attenuation artifact. The end diastolic volume is 88 ml, the end systolic volume is 42 ml, and the ejection fraction is 53 %. IMPRESSION: Small area of mild stress-induced ischemia involving the LV apex.
[2018-02-15 12:48] VITALS: TEMP 97.2
--- NOTE | 2018-02-15 17:34 | ECHO ---
HEIGHT: 5 ft 7 in WEIGHT: 203 lb 1.6 oz DATE OF STUDY: 02/15/[address]: Juan Pizarro MD 2-DIMENSIONAL: YES M.MODE: YES DOPPLER: YES COLOR FLOW: YES TDS: PORTABLE: DEFINITY: BUBBLE STUDY: DIAGNOSIS: CHEST PAIN, CORNARY ARTERY DISEASE CARDIAC HISTORY: CATHERIZATION: YES SURGERY: NO PROSTHETIC VALVE: NO PACEMAKER: YES MEASUREMENTS (cm) DIASTOLIC (NORMALS) SYSTOLIC (NORMALS) IVSd 0.9 (0.6-1.2) LA Diam 4.0 (1.9-4.0) LVEF 40-45% LVIDd 4.5 (3.5-5.7) LVIDs 3.6 (2.0-3.5) %FS 19% LVPWd 0.9 (0.6-1.2) Ao Diam 2.7 (2.0-3.7) 2 DIMENSIONAL ASSESSMENT: RIGHT ATRIUM: NORMAL LEFT ATRIUM: NORMAL RIGHT VENTRICLE: PACER LEFT VENTRICLE: NORMAL TRICUSPID VALVE: NORMAL MITRAL VALVE: NORMAL PULMONIC VALVE: NORMAL AORTIC VALVE: NORMAL PERICARDIAL EFFUSION: NONE AORTIC ROOT: NORMAL LEFT VENTRICULAR WALL MOTION: MILD GLOBAL HYPOKINESIS DOPPLER/COLOR FLOW: MILD TRICUSPID REGURGITATION. NORMAL RIGHT VENTRICULAR SYSTOLIC PRESSURE. COMMENTS: MILD GLOBAL HYPOKINESIS. PACER IN RIGHT VENTRICULAR APEX. MILD TRICUSPID REGURGITATION. EJECTION FRACTION 40-45% TECHNOLOGIST: TONO ALCANTAR
--- NOTE | 2018-02-15 18:08 | TREADPHA ---
DX: CHEST PAIN Date of Study: 02/15/2018 Ht: 5 7 Wt: 203 lb 1.6 oz Consulting Physician: MATI MEDICATIONS: TYLENOL, ASPIRIN, XANAX, BYSPAR, COREG, CELEXA, PLAVIX, LASIX, SYNTHROID, LOPRESSOR, PROTONIX, DESYREL HISTORY: 68 YEAR OLD FEMALE WITH CHEST PAIN. HISTORY OF HYPERTENSION, CONARY ARTERY DISEASE, PERCUTANEOUS CORNARY INTERVENTION, CHRONIC OBSTRUCTIVE PULMONARY DISEASE AND PACEMAKER. PHYSICIAL EXAMINATION: RESTING B.P.: 136/79 RESTING H.R.: 72 RESTING EKG: PACED RHYTHM PROTOCOL: EXERCISE TIME: 3:30 B.P. AT PEAK STRESS: 125/66 IMPRESSION: LEXISCAN INJECTED. CARDIOLITE INJECTED PER PROTOCOL. SEE NUCLEAR MEDICINE REPORT. NO CHEST PAIN. NO SUPRAVENTRICULAR TACHYCARDIA. NO VENTRICULAR TACHYCARDIA.
[2018-02-15] MEDS ORDERED: TRAZODONE 150 MG TAB PO SCH (21:00)
== END 2018-02-15 15:50 | disposition home or self-care (01) ==
LOC: ER 18:27 → ERHOLD 23:59 → 4TH 02-15 01:16
PROVIDERS: ADMIT Hospitalist; ATTEND Family Medicine
DX: R07.9 Chest pain, unspecified (principal); I25.10 Atherosclerotic heart disease of native coronary artery without angina pectoris; J44.9 Chronic obstructive pulmonary disease, unspecified; I10 Essential (primary) hypertension; E78.5 Hyperlipidemia, unspecified; F41.8 Other specified anxiety disorders; E03.9 Hypothyroidism, unspecified; I73.9 Peripheral vascular disease, unspecified; K57.90 Diverticulosis of intestine, part unspecified, without perforation or abscess without bleeding; M81.0 Age-related osteoporosis without current pathological fracture
CPT/HCPCS: 36415; 71045; 78452; 80048; 80061; 80076; 82550; 82553; 83735; 83880; 84484 ×3; 85025; 85610; 85730; 93005; 93017; 93306; 96372; 96374; 99285; A9500; J1650; J2270 ×2; J2785

== ENCOUNTER 2018-10-29 15:48 | Emergency (ER) | payer OTHER ==
--- OUTSIDE RECORDS SUMMARY | 2018-10-29 15:50 | XMS REPORT ---
:1950 [facility] Address [address] [place] [address] Dr. Brown [address] [place] [address] Care Team Providers Name Role Phone Unavailable Unavailable Unavailable Problems This patient has no known problems. Allergies, Adverse Reactions, Alerts This patient has no known allergies or adverse reactions. Medications This patient has no known medications.
--- NOTE | 2018-10-29 17:01 | ER ---
Nurse's Notes [facility] Name: Maryan Tripp Age: 68 yrs Sex: Female : 1950 Arrival Date: 10/29/2018 Time: 15:51 Bed 15 Private MD: Diagnosis: Weakness-shakiness after blood draw Presentation: 10/29 16:01 Presenting complaint: Patient states: Patient states "I was having blood drawn for my doctor and they took 6 vials of blood and I got all dizzy and shaky. I have never had that much blood taken before." Denies syncope. Transition of care: patient was not received from another setting of care. Onset of symptoms was October 29, 2018. Risk Assessment: Do you want to hurt yourself or someone else? Patient reports no desire to harm self or others. Initial Sepsis Screen: Does the patient meet any 2 criteria? No. Patient's initial sepsis screen is negative. Does the patient have a suspected source of infection? No. Patient's initial sepsis screen is negative. Care prior to arrival: None. 16:01 Method Of Arrival: Wheelchair 16:01 Acuity: BRAYAN 3 Triage Assessment: 16:03 General: Appears in no apparent distress. comfortable, Behavior is calm, cooperative, aj appropriate for age. Pain: Denies pain. Neuro: Level of Consciousness is awake, alert, obeys commands, Oriented to person, place, time, situation, Appropriate for age. Respiratory: Airway is patent Respiratory effort is even, unlabored, Respiratory pattern is regular, symmetrical. Derm: Skin is intact, is healthy with good turgor, Skin is pink, warm \\T\\ dry. normal. Historical: - Allergies: 16:03 Sulfa (Sulfonamide Antibiotics); - Home Meds: 16:03 aspirin 81 mg Oral TbEC 1 tab once daily [Active]; buspirone 10 mg Oral tab 1 tab 2 aj times per day [Active]; carvedilol 3.125 mg Oral tab 1 tab 2 times per day [Active]; citalopram 20 mg tab 1 tab once daily [Active]; Iron CR Oral [Active]; levothyroxine 100 mcg tab 1 tab once daily [Active]; opreso [Active]; Plavix 75 mg Oral tab [Active]; proair PRN [Active]; Protonix Oral [Active]; topiramate Oral once daily [Active]; trazodone 150 mg Oral tab 1 tab nightly [Active]; - PMHx: 16:03 cardiac stents; COPD; Pacemaker; Thyroid problem; aj - Immunization history:: Adult Immunizations up to date. - Social history:: Smoking status: Patient/guardian denies using tobacco. - Ebola Screening: : Patient negative for fever greater than or equal to 101.5 degrees Fahrenheit, and additional compatible Ebola Virus Disease symptoms Patient denies exposure to infectious person Patient denies travel to an Ebola-affected area in the 21 days before illness onset No symptoms or risks identified at this time. Screenin:10 Abuse screen: Denies threats or abuse. Nutritional screening: No deficits noted. rb1 Tuberculosis screening: No symptoms or risk factors identified. Fall Risk None identified. Assessment: 16:10 General: Appears in no apparent distress. comfortable, Behavior is calm, cooperative, rb1 Pt. reports only eating once around 12:00 today and then went and had blood work done. While having the blood work drawn the pt. felt shaky and weak. Blood was drawn at 1530 today.. General:. Pain: Complains of pain in head Pain currently is 8 out of 10 on a pain scale. Neuro: Level of Consciousness is awake, alert, obeys commands, Oriented to person, place, time, situation. Cardiovascular: Capillary refill < 3 seconds is brisk in bilateral fingers. Respiratory: Airway is patent Respiratory effort is even, unlabored, Respiratory pattern is regular, symmetrical. GI: Reports diarrhea. : No signs and/or symptoms were reported regarding the genitourinary system. Derm: Skin is pink, warm \\T\\ dry. Musculoskeletal: Range of motion: intact in all extremities. 17:00 Reassessment: Patient appears in no apparent distress at this time. No changes from rb1 previously documented assessment. Vital Signs: 16:03 BP 131 / 80; Pulse 75; Resp 19; Temp 98.1; Pulse Ox 100% on R/A; Weight 90.72 kg; aj Height 5 ft. 7 in. (170.18 cm); 16:19 BP 149 / 84 Supine; Pulse 74; Pulse Ox 98% on R/A; rb1 16:21 BP 143 / 80 Sitting; Pulse 81; Pulse Ox 98% on R/A; rb1 16:23 BP 124 / 81 Standing; Pulse 94; Pulse Ox 97% on R/A; rb1 17:02 BP 128 / 79; Pulse 74; Resp 16; Pulse Ox 99% on R/A; rb1 16:03 Body Mass Index 31.32 (90.72 kg, 170.18 cm) ED Course: 15:51 Patient arrived in ED. rg4 16:02 Triage completed. aj 16:03 Arm band placed on left wrist. Patient placed in an exam room. aj 16:04 Brooklyn Gaming F[facility]-C [facility]. kb 16:04 Abelino Gabriel MD is Attending Physician. kb 16:10 Patient has correct armband on for positive identification. Bed in low position. Call rb1 light in reach. Side rails up X 1. platen press feeder on. Pulse ox on. NIBP on. 16:29 Venus Mejia, RN is Primary Nurse. rb1 16:51 EKG done, by radiological technologist. reviewed by Brooklyn PAGE. sm3 17:23 No provider procedures requiring assistance completed. Patient did not have IV access rb1 during this emergency room visit. Administered Medications: No medications were administered Point of Care Testing: Blood Glucose: 16:21 Blood Glucose: 134 mg/dL; ms Ranges: Outcome: 17:00 Discharge ordered by MD. kb 17:23 Patient left the ED. rb1 17:23 Discharged to home ambulatory. rb1 17:23 Condition: stable 17:23 Discharge instructions given to patient, Instructed on discharge instructions, follow up and referral plans. Demonstrated understanding of instructions, follow-up care, Prescriptions given X none Signatures: Brooklyn Gaming FNP-C FNP-Ckb Myers, Amanda, RN RN aj Solis, Maria ms Barber, Rebecca, SILVIA RN rb1 Luisana Cotter rg4 Shania Griffin sm3 Corrections: (The following items were deleted from the chart) 16:51 16:21 BP 143 / 80; Pulse 81bpm; Pulse Ox 98% RA; rb1 rb1
--- NOTE | 2018-10-29 17:02 | EDPHYS ---
Physician Documentation [facility] Name: Maryan Tripp Age: 68 yrs Sex: Female : 1950 Arrival Date: 10/29/2018 Time: 15:51 Bed 15 Private MD: ED Physician Abelino Gabriel HPI: 10/29 16:17 This 68 yrs old Female presents to ER via Wheelchair with complaints of kb Weakness. 16:17 The patient presents with "shakiness after blood draw". Onset: The symptoms/episode kb began/occurred 1 hour(s) ago. Context: occurred at a hospital, occurred while the patient was undergoing a needle stick, just prior to the episode the patient experienced no apparent symptoms. Modifying factors: The symptoms are alleviated by nothing, the symptoms are aggravated by nothing. Associated signs and symptoms: Pertinent positives: "shakiness". Severity of symptoms: At their worst the symptoms were moderate in the emergency department the symptoms have improved. Patient's baseline: Neuro: alert and fully oriented, Motor: no deficits, Ambulation: walks without assistance, Speech: normal. The patient has not experienced similar symptoms in the past. The patient has been recently seen by a physician:. Pt reports she was at the lab, had 6 vials of blood taken and got shaky. States she has never had that much blood taken so she thinks it may have dehydrated her. Denies dizziness or lightheadedness, just described symptoms as shaky. Historical: - Allergies: 16:03 Sulfa (Sulfonamide Antibiotics); aj - Home Meds: 16:03 aspirin 81 mg Oral TbEC 1 tab once daily [Active]; buspirone 10 mg Oral tab 1 tab 2 aj times per day [Active]; carvedilol 3.125 mg Oral tab 1 tab 2 times per day [Active]; citalopram 20 mg tab 1 tab once daily [Active]; Iron CR Oral [Active]; levothyroxine 100 mcg tab 1 tab once daily [Active]; opreso [Active]; Plavix 75 mg Oral tab [Active]; proair PRN [Active]; Protonix Oral [Active]; topiramate Oral once daily [Active]; trazodone 150 mg Oral tab 1 tab nightly [Active]; - PMHx: 16:03 cardiac stents; COPD; Pacemaker; Thyroid problem; aj - Immunization history:: Adult Immunizations up to date. - Social history:: Smoking status: Patient/guardian denies using tobacco. - Ebola Screening: : Patient negative for fever greater than or equal to 101.5 degrees Fahrenheit, and additional compatible Ebola Virus Disease symptoms Patient denies exposure to infectious person Patient denies travel to an Ebola-affected area in the 21 days before illness onset No symptoms or risks identified at this time. ROS: 16:17 Constitutional: Negative for fever, chills, and weight loss, ENT: Negative for injury, kb pain, and discharge, Neck: Negative for injury, pain, and swelling, Cardiovascular: Negative for chest pain, palpitations, and edema, Respiratory: Negative for shortness of breath, cough, wheezing, and pleuritic chest pain, Abdomen/GI: Negative for abdominal pain, nausea, vomiting, diarrhea, and constipation, Back: Negative for injury and pain, MS/Extremity: Negative for injury and deformity, Skin: Negative for injury, rash, and discoloration. 16:17 Neuro: Positive for shakiness. Exam: 16:17 Constitutional: This is a well developed, well nourished patient who is awake, alert, kb and in no acute distress. Head/Face: Normocephalic, atraumatic. ENT: Nares patent. No nasal discharge, no septal abnormalities noted. Tympanic membranes are normal and external auditory canals are clear. Oropharynx with no redness, swelling, or masses, exudates, or evidence of obstruction, uvula midline. Mucous membranes moist. Neck: Trachea midline, no thyromegaly or masses palpated, and no cervical lymphadenopathy. Supple, full range of motion without nuchal rigidity, or vertebral point tenderness. No Meningismus. Chest/axilla: Normal chest wall appearance and motion. Nontender with no deformity. No lesions are appreciated. Cardiovascular: Regular rate and rhythm with a normal S1 and S2. No gallops, murmurs, or rubs. Normal PMI, no JVD. No pulse deficits. Respiratory: Lungs have equal breath sounds bilaterally, clear to auscultation and percussion. No rales, rhonchi or wheezes noted. No increased work of breathing, no retractions or nasal flaring. Abdomen/GI: Soft, non-tender, with normal bowel sounds. No distension or tympany. No guarding or rebound. No evidence of tenderness throughout. Skin: Warm, dry with normal turgor. Normal color with no rashes, no lesions, and no evidence of cellulitis. MS/ Extremity: Pulses equal, no cyanosis. Neurovascular intact. Full, normal range of motion. Neuro: Awake and alert, GCS 15, oriented to person, place, time, and situation. Cranial nerves II-XII grossly intact. Motor strength 5/5 in all extremities. Sensory grossly intact. Cerebellar exam normal. Normal gait. Vital Signs: 16:03 BP 131 / 80; Pulse 75; Resp 19; Temp 98.1; Pulse Ox 100% on R/A; Weight 90.72 kg; aj Height 5 ft. 7 in. (170.18 cm); 16:19 BP 149 / 84 Supine; Pulse 74; Pulse Ox 98% on R/A; rb1 16:21 BP 143 / 80 Sitting; Pulse 81; Pulse Ox 98% on R/A; rb1 16:23 BP 124 / 81 Standing; Pulse 94; Pulse Ox 97% on R/A; rb1 17:02 BP 128 / 79; Pulse 74; Resp 16; Pulse Ox 99% on R/A; rb1 16:03 Body Mass Index 31.32 (90.72 kg, 170.18 cm) aj MDM: 16:05 Patient medically screened. kb 16:21 Data reviewed: vital signs, nurses notes. Data interpreted: Pulse oximetry: on room air kb is 100 %. Interpretation: normal. ED course: Pt standing at nurse's station, talking on phone. Ambulates with steady gait. No distress noted. . 16:53 Counseling: I had a detailed discussion with the patient and/or guardian regarding: the kb historical points, exam findings, and any diagnostic results supporting the discharge/admit diagnosis, lab results, the need for outpatient follow up, a family practitioner, to return to the emergency department if symptoms worsen or persist or if there are any questions or concerns that arise at home. 10/29 16:32 Order name: Glucose, Ancillary Testing; Complete Time: 16:32 EDMS 10/29 16:10 Order name: EKG; Complete Time: 16:11 kb 10/29 16:10 Order name: EKG - Nurse/Tech; Complete Time: 16:43 kb 10/29 16:10 Order name: Orthostatics; Complete Time: 16:27 kb 10/29 16:10 Order name: Blood Glucose Level; Complete Time: 16:27 kb 10/29 16:54 Order name: PO challenge; Complete Time: 17:13 kb Administered Medications: No medications were administered Point of Care Testing: Blood Glucose: 16:21 Blood Glucose: 134 mg/dL; ms Ranges: Critical Glucose Levels:Adult <50 mg/dl or >400 mg/dl <40 mg/dl or >180 mg/dl Disposition: 17:54 Co-signature as Attending Physician, Abelino Gabriel MD. rn Disposition: 10/29/18 17:00 Discharged to Home. Impression: Weakness - shakiness after blood draw. - Condition is Stable. - Discharge Instructions: Vasovagal Syncope, Adult. - Medication Reconciliation Form, Thank You Letter, Antibiotic Education, Prescription Opioid Use form. - Follow up: Emergency Department; When: As needed; Reason: Worsening of condition. Follow up: Private Physician; When: 2 - 3 days; Reason: Recheck today's complaints, Continuance of care, Re-evaluation by your physician. Signatures: Brooklyn Gaming, PHOTOGRAPHIC LABORATORY TECHNICIAN-C PHOTOGRAPHIC LABORATORY TECHNICIAN-Killianb Fide Garcia, RN RN Abelino Gao MD MD rn Venus Mejia, RN RN rb1 Corrections: (The following items were deleted from the chart) 17:23 17:00 10/29/2018 17:00 Discharged to Home. Impression: Weakness - shakiness after blood rb1 draw. Condition is Stable. Forms are Medication Reconciliation Form, Thank You Letter, Antibiotic Education, Prescription Opioid Use. Follow up: Emergency Department; When: As needed; Reason: Worsening of condition. Follow up: Private Physician; When: 2 - 3 days; Reason: Recheck today's complaints, Continuance of care, Re-evaluation by your physician. kb
[2018-10-29 20:13] VITALS: TEMP 98.1
[2018-10-29 20:17] VITALS: BP 124/81; O2SAT 97
--- NOTE | 2018-10-30 06:59 | EKG ---
Test Date: 2018-09-28 Test Time: 16:49:51 Customer Support Executive: NISSA MEASUREMENT RESULTS: Intervals: Rate: 76 OR: 146 QRSD: 148 QT: 452 QTc: 508 [place]: P: 81 OR: 146 QRS: -31 T: 232 INTERPRETIVE STATEMENTS: AV sequential or dual chamber electronic pacemaker Compared to ECG 02/14/2018 18:34:38 Ventricular-paced complex(es) or rhythm no longer present Atrial-sensed ventricular-paced complex(es) or rhythm no longer present Electronically Signed On 10-30-18 06:53:28 ADVANCED DEVELOPER by Ruben Rosa
== END 2018-10-29 17:23 | disposition home or self-care (01) ==
LOC: ER 15:48
DX: R53.1 Weakness (principal); J44.9 Chronic obstructive pulmonary disease, unspecified; Z88.2 Allergy status to sulfonamides; Z79.82 Long term (current) use of aspirin
CPT/HCPCS: 82962; 93005; 99284

== ENCOUNTER 2019-03-24 13:26 | Emergency (ER) | payer OTHER ==
--- OUTSIDE RECORDS SUMMARY | 2019-03-24 13:29 | XMS REPORT ---
:1950 [facility] Address [address] [place] [address] [address]. Brown [address] [place] [address] Care Team Providers Name Role Phone Unavailable Unavailable Unavailable Problems This patient has no known problems. Allergies, Adverse Reactions, Alerts This patient has no known allergies or adverse reactions. Medications This patient has no known medications.
--- OUTSIDE RECORDS SUMMARY | 2019-03-24 13:30 | XMS REPORT ---
:1950 Author Organization eClinicalWorks Care Team Providers Name Role Phone McmullenOnel Provider Role Unavailable Allergies, Adverse Reactions, Alerts Substance Reaction Event Type N.K.D.A. Info Not Available Non Drug Allergy Problems Problem Type Condition Code Onset Dates Condition Status Assessment Diverticulosis large intestine w/o K57.30 Active perforation or abscess w/o bleeding Assessment Head ache R51 Active Assessment Benign essential HTN I10 Active Assessment Atherosclerosis of coronary artery I25.10 Active of [place] heart Assessment Depression with anxiety F41.8 Active Assessment Insomnia G47.00 Active Assessment Hypothyroidism E03.9 Active Assessment Congestive heart failure, I50.9 Active unspecified HF chronicity, unspecified heart failure type Problem Chronic obstructive pulmonary J44.9 Active disease, unspecified COPD type Problem Stented coronary artery Z95.5 Active Problem Head ache R51 Active Problem Iron deficiency anemia, D50.9 Active unspecified iron deficiency anemia type Problem Femur fracture S72.90XA Active Problem Acute chronic obstructive J44.9 Active pulmonary disease with respiratory distress Problem Internal hemorrhoids K64.8 Active Problem 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 Problem 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 [place] coronary artery of [place] heart with angina pectoris Problem Bradycardia R00.1 Active Problem TIA (transient ischemic attack) G45.9 Active Problem Hypocalcemia E83.51 Active Problem Depression with anxiety F41.8 Active Problem Atherosclerosis of coronary artery I25.10 Active of [place] heart Problem Myocardial infarction I21.3 Active Problem Congestive heart failure, I50.9 Active unspecified HF chronicity, unspecified heart failure type Problem Vasovagal syncope R55 Active Assessment Peripheral vascular disease I73.9 Active Problem Gastritis K29.70 Active Assessment Iron deficiency anemia, D50.9 Active unspecified iron deficiency anemia type Problem Benign essential HTN I10 Active Assessment 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 [place] coronary artery of [place] heart with angina pectoris Problem Peripheral vascular disease I73.9 Active Assessment Chronic obstructive pulmonary J44.9 Active disease, unspecified COPD type Problem Insomnia G47.00 Active Problem Allergic rhinitis J30.9 Active Assessment 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 Problem Diverticulosis large intestine w/o K57.30 Active perforation or abscess w/o bleeding Problem Hypothyroidism E03.9 Active Problem Dizziness R42 Active Medications Medication Code Code Instructions Start End Date Status Dosage System Date BusPIRone HCl [facility] 17363148609 10 MG Orally Active 1 tablet Twice a day Trazodone HCl [facility] 14627785087 150 MG Orally Active take 1 Once a day tablet one time daily at bedtime Pravastatin [facility] 17016867481 10 MG Orally Active 1 tablet Sodium Once a day Vitamin D3 [facility] 92730795682 1000 UNIT Active 1 capsule Orally Once a day Ferrous Sulfate [facility] 22915317000 325 (65 Fe) MG Active 1 tablet Orally Once a day Levothyroxine [facility] 47019618230 100 MCG Orally Active 1 tablet Sodium Once a day on an empty stomach in the morning Citalopram [facility] 60408644449 20 MG Orally Active 1 tablet Hydrobromide Once a day ProAir HFA [facility] 40566366958 108 (90 Base) Active 2 puffs as MCG/ACT needed Inhalation every 6 hrs Symbicort [facility] 07578177731 160-4.5 MCG/ACT December Active 2 puffs Inhalation 2018 Twice a day Protonix [facility] 63617493659 40 MG Orally Active 1 tablet Once a day Aspir-81 [facility] 00822520014 81 MG Orally Active 1 tablet Once a day Furosemide [facility] 42459988764 20 MG Orally Active 1 tablet Once a day PRN Swelling Lisinopril [facility] 44817304432 2.5 MG Orally December Active 1 tablet Once a day 2018 Coreg [facility] 60781583640 3.125 MG Orally Active not defined Plavix [facility] 99337505350 75 MG Orally Active 1 tablet Once a day Results No Known Results Summary Purpose eClinicalWorks Submission
[2019-03-24 14:31] LABS: Basophils % 0.7 % (0-1.3); Eosinophils % 1.7 % (0-4.4); Lymphocytes % 30.2 % (15.3-44.8); MPV 7.8 fL (7.6-11.3); RBC Red Blood Cell Count 4.32 M/uL (3.86-4.86)
[2019-03-24 14:48] LABS: ALT/SGPT 20 U/L (12-78); AST/SGOT 65 U/L (15-37); Albumin 3.5 g/dL (3.4-5.0); Alkaline Phosphatase 66 U/L (45-117); BUN Blood Urea Nitrogen 15 mg/dL (7-18); Bicarbonate 27 mmol/L (21-32); Bilirubin Direct 0.1 mg/dL (0-0.2); Bilirubin Total 0.3 mg/dL (0.2-1.0); Glucose Level 86 mg/dL (74-106); Magnesium 2.4 mg/dL (1.8-2.4); NT PRO-BNP 202 pg/mL (<125); Potassium 4.5 mmol/L (3.5-5.1); Protein, Total 6.8 g/dL (6.4-8.2); Sodium Level 141 mmol/L (136-145); Troponin (Emerg Dept Use Only) < 0.02 ng/mL (0.0-0.045)
[2019-03-24 14:51] LABS: Protime INR 0.99
--- NOTE | 2019-03-24 14:54 | RAD REPORT ---
EXAM DESCRIPTION: RAD - Chest Single View - 03/24/2019 2:34 pm CLINICAL HISTORY: Dyspnea, weakness, dizziness COMPARISON: January 2018 TECHNIQUE: AP portable chest image was obtained 1425 hours . FINDINGS: No focal lung parenchymal process. Interstitial pattern matches the comparison study. Pace maker/defibrillator remains in place. Heart and vasculature are normal. No measurable pleural effusio n and no pneumothorax. No acute bony abnormality seen. No acute aortic findings suspected. IMPRESSION: No acute cardiopulmonary process. Chest findings are not significantly different from the January 2018 study.
--- NOTE | 2019-03-24 15:53 | EDPHYS ---
Physician Documentation [facility] Name: Maryan Tripp Age: 69 yrs Sex: Female : 1950 Arrival Date: 03/24/2019 Time: 13:35 Bed 25 Private MD: ED Physician Ankush Sanabria HPI: 03/24 15:36 This 69 yrs old Female presents to ER via EMS with complaints of Dizziness, jr8 Syncope. 15:36 The patient presents with dizziness, feeling faint, generalized weakness, jr8 lightheadedness. Onset: The symptoms/episode began/occurred acutely, 1 week(s) ago. Context:. Modifying factors: The symptoms are alleviated by lying down, the symptoms are aggravated by standing up. Associated signs and symptoms: Pertinent positives: near-syncope, palpitations, congestion, Pertinent negatives: blurred vision, focal weakness. Severity of symptoms: At their worst the symptoms were moderate in the emergency department the symptoms are unchanged. The patient has not experienced similar symptoms in the past. The patient has not recently seen a physician. Historical: - Allergies: 13:41 Sulfa (Sulfonamide Antibiotics); aj1 - Home Meds: 13:41 trazodone 150 mg Oral tab 1 tab nightly [Active]; Protonix 20 mg oral TbEC once daily aj1 [Active]; Plavix 75 mg Oral tab [Active]; carvedilol 3.125 mg Oral tab 1 tab 2 times per day [Active]; aspirin 81 mg Oral TbEC 1 tab once daily [Active]; pravastatin 10 mg oral tab 1 tab once daily [Active]; sulfasalazine 500 mg Oral tab 1 tab twice daily [Active]; levothyroxine 100 mcg tab 1 tab once daily [Active]; buspirone 10 mg Oral tab 1 tab 2 times per day [Active]; lisinopril 2.5 mg Oral tab 1 tab once daily [Active]; citalopram 20 mg tab 1 tab once daily [Active]; proair PRN [Active]; - PMHx: 13:41 cardiac stents; COPD; Pacemaker; /defibrilator; Thyroid problem; CHF; Myocardial aj1 infarction; - PSHx: 13:41 Cholecystectomy; melanoma surgery; wrist surgery; ankle surgery; aj1 - Immunization history:: Flu vaccine is up to date. - Social history:: Smoking status: Patient/guardian denies using tobacco. - Ebola Screening: : Patient denies travel to an Ebola-affected area in the 21 days before illness onset. ROS: 15:36 Constitutional: Negative for fever, chills, and weight loss, Eyes: Negative for injury, jr8 pain, redness, and discharge, Respiratory: Negative for shortness of breath, cough, wheezing, and pleuritic chest pain, Abdomen/GI: Negative for abdominal pain, nausea, vomiting, diarrhea, and constipation, MS/Extremity: Negative for injury and deformity, Skin: Negative for injury, rash, and discoloration. 15:36 ENT: Positive for sinus congestion, Negative for hearing loss, tinnitus, dental pain. 15:36 Cardiovascular: Positive for palpitations, Negative for chest pain, edema, orthopnea. 15:36 Neuro: Positive for dizziness, weakness, Negative for altered mental status, headache, numbness, visual changes. 15:36 All other systems are negative. Exam: 15:36 Constitutional: This is a well developed, well nourished patient who is awake, alert, jr8 and in no acute distress. Eyes: Pupils equal round and reactive to light, extra-ocular motions intact. Lids and lashes normal. Conjunctiva and sclera are non-icteric and not injected. Cornea within normal limits. Periorbital areas with no swelling, redness, or edema. Neck: Trachea midline, no thyromegaly or masses palpated, and no cervical lymphadenopathy. Supple, full range of motion without nuchal rigidity, or vertebral point tenderness. No Meningismus. Chest/axilla: Normal chest wall appearance and motion. Nontender with no deformity. No lesions are appreciated. Cardiovascular: Regular rate and rhythm with a normal S1 and S2. No gallops, murmurs, or rubs. Normal PMI, no JVD. No pulse deficits. Respiratory: Lungs have equal breath sounds bilaterally, clear to auscultation and percussion. No rales, rhonchi or wheezes noted. No increased work of breathing, no retractions or nasal flaring. Abdomen/GI: Soft, non-tender, with normal bowel sounds. No distension or tympany. No guarding or rebound. No evidence of tenderness throughout. Skin: Warm, dry with normal turgor. Normal color with no rashes, no lesions, and no evidence of cellulitis. MS/ Extremity: Pulses equal, no cyanosis. Neurovascular intact. Full, normal range of motion. Neuro: Awake and alert, GCS 15, oriented to person, place, time, and situation. Cranial nerves II-XII grossly intact. Motor strength 5/5 in all extremities. Sensory grossly intact. Cerebellar exam normal. Normal gait. Vital Signs: 13:41 BP 125 / 80; Pulse 70; Resp 17; Temp 97.8(O); Pulse Ox 98% on R/A; Weight 90.72 kg (R); aj1 Height 5 ft. 7 in. (170.18 cm) (R); Pain 0/10; 14:45 BP 132 / 75; Pulse 62; Resp 18; Pulse Ox 97% on R/A; aj1 15:45 BP 137 / 85; Pulse 73; Resp 20; Pulse Ox 97% on R/A; aj1 16:16 BP 122 / 65; Pulse 70; Resp 17; Pulse Ox 98% on R/A; aj1 13:41 Body Mass Index 31.32 (90.72 kg, 170.18 cm) 1 MDM: 13:54 Patient medically screened. [facility] 15:51 Data reviewed: vital signs, nurses notes, lab test result(s), EKG, radiologic studies, [facility] plain films. Data interpreted: Pulse oximetry: on room air is 98 %. Interpretation: normal. Counseling: I had a detailed discussion with the patient and/or guardian regarding: the historical points, exam findings, and any diagnostic results supporting the discharge/admit diagnosis, lab results, radiology results, the need for outpatient follow up, a neurologist, to return to the emergency department if symptoms worsen or persist or if there are any questions or concerns that arise at home. Response to treatment: the patient's symptoms have mildly improved after treatment. ED course: Patient without acute or concerning lab, radiolgy, or ECG finding. Needs to follow back up with neurologist. If worse to come back. Will put on meclizine for the meantime. No acute focal deficit noted on exam . 03/24 14:08 Order name: Basic Metabolic Panel [facility] 03/24 14:08 Order name: CBC with Diff; Complete Time: 14:35 [facility] 03/24 14:08 Order name: LFT's; Complete Time: 14:51 03/24 14:08 Order name: Magnesium; Complete Time: 14:51 jr8 03/24 14:08 Order name: NT PRO-BNP; Complete Time: 14:51 8 03/24 14:08 Order name: PT-INR; Complete Time: 15:08 03/24 14:08 Order name: Troponin (emerg Dept Use Only); Complete Time: 14:51 jr8 03/24 14:08 Order name: XRAY Chest (1 view); Complete Time: 15:08 03/24 14:08 Order name: EKG; Complete Time: 14:10 03/24 14:08 Order name: Cardiac monitoring; Complete Time: 14:17 jr8 03/24 14:08 Order name: EKG - Nurse/Tech; Complete Time: 14:17 03/24 14:08 Order name: IV Saline Lock; Complete Time: 14:39 8 03/24 14:08 Order name: Labs collected and sent; Complete Time: 14:39 03/24 14:09 Order name: Basic Metabolic Panel; Complete Time: 14:51 EDMS 03/24 14:08 Order name: O2 Per Protocol; Complete Time: 14:17 03/24 14:08 Order name: O2 Sat Monitoring; Complete Time: 14:17 Administered Medications: No medications were administered Disposition: 03/25 13:07 Co-signature as Attending Physician, Ankush Sanabria MD Available for consultation at ps1 all times. . Chart complete. Disposition: 03/24/19 15:52 Discharged to Home. Impression: Dizziness. - Condition is Stable. - Discharge Instructions: Dizziness. - Prescriptions for Meclizine 25 mg Oral Tablet - take 1 tablet by ORAL route every 8 hours As needed; 30 tablet. - Medication Reconciliation Form, Thank You Letter, Antibiotic Education, Prescription Opioid Use form. - Follow up: Rolly Mcdonald MD; When: 2 - 3 days; Reason: Recheck today's complaints, Continuance of care, Re-evaluation by your physician. - Problem is new. - Symptoms have improved. Signatures: Dispatcher [employer] EDMS Naila Murrieta RN RN aj1 Jose Handy PA PA jr8 Ankush Sanabria MD MD ps1 Corrections: (The following items were deleted from the chart) 03/24 16:17 15:52 03/24/2019 15:52 Discharged to Home. Impression: Dizziness. Condition is Stable. aj1 Forms are Medication Reconciliation Form, Thank You Letter, Antibiotic Education, Prescription Opioid Use. Follow up: Rolly Mcdonald; When: 2 - 3 days; Reason: Recheck today's complaints, Continuance of care, Re-evaluation by your physician. Problem is new. Symptoms have improved. jr8
--- NOTE | 2019-03-24 15:53 | ER ---
Nurse's Notes [facility] Name: Maryan Tripp Age: 69 yrs Sex: Female : 1950 Arrival Date: 03/24/2019 Time: 13:35 Bed 25 Private MD: Diagnosis: Dizziness Presentation: 03/24 13:35 Presenting complaint: Patient states: Dizziness for the past week, denies CP, SOB, aj1 nausea. States that last week on Sunday she got up from the bathroom and had a syncopal episode. Transition of care: patient was not received from another setting of care. Onset of symptoms was February 2019. Risk Assessment: Do you want to hurt yourself or someone else? Patient reports no desire to harm self or others. Initial Sepsis Screen: Does the patient meet any 2 criteria? No. Patient's initial sepsis screen is negative. Does the patient have a suspected source of infection? No. Patient's initial sepsis screen is negative. Care prior to arrival: None. 13:35 Method Of Arrival: EMS: [facility] aj 13:35 Acuity: BRAYAN 3 aj1 Triage Assessment: 13:41 General: Appears in no apparent distress. comfortable, Behavior is calm, cooperative, aj1 appropriate for age. Pain: Denies pain. Neuro: Level of Consciousness is awake, alert, obeys commands, Oriented to person, place, time, situation, Reports dizziness. Historical: - Allergies: 13:41 Sulfa (Sulfonamide Antibiotics); aj1 - Home Meds: 13:41 trazodone 150 mg Oral tab 1 tab nightly [Active]; Protonix 20 mg oral TbEC once daily aj1 [Active]; Plavix 75 mg Oral tab [Active]; carvedilol 3.125 mg Oral tab 1 tab 2 times per day [Active]; aspirin 81 mg Oral TbEC 1 tab once daily [Active]; pravastatin 10 mg oral tab 1 tab once daily [Active]; sulfasalazine 500 mg Oral tab 1 tab twice daily [Active]; levothyroxine 100 mcg tab 1 tab once daily [Active]; buspirone 10 mg Oral tab 1 tab 2 times per day [Active]; lisinopril 2.5 mg Oral tab 1 tab once daily [Active]; citalopram 20 mg tab 1 tab once daily [Active]; proair PRN [Active]; - PMHx: 13:41 cardiac stents; COPD; Pacemaker; /defibrilator; Thyroid problem; CHF; Myocardial aj1 infarction; - PSHx: 13:41 Cholecystectomy; melanoma surgery; wrist surgery; ankle surgery; aj1 - Immunization history:: Flu vaccine is up to date. - Social history:: Smoking status: Patient/guardian denies using tobacco. - Ebola Screening: : Patient denies travel to an Ebola-affected area in the 21 days before illness onset. Screenin:43 Abuse screen: Denies threats or abuse. Denies injuries from another. Nutritional aj1 screening: No deficits noted. Tuberculosis screening: No symptoms or risk factors identified. 16:13 Fall Risk Fall in past 12 months (25 points). No secondary diagnosis (0 pts). No IV (0 aj1 pts). Ambulatory Aid- None/Bed Rest/Nurse Assist (0 pts). Gait- Normal/Bed Rest/Wheelchair (0 pts) Mental Status- Oriented to own ability (0 pts). Total Fan Fall Scale indicates Low Risk Score (25-44 pts). As available Patient and Family Educated on Fall Prevention Program and strategies. Assessment: 13:43 General: Appears in no apparent distress. comfortable, Behavior is calm, cooperative, aj1 appropriate for age. Pain: Denies pain. Neuro: Level of Consciousness is awake, alert, obeys commands, Oriented to person, place, time, situation, Moves all extremities. Full function Speech is normal, Facial symmetry appears normal, Reports dizziness, photophobia. Cardiovascular: Denies chest pain, nausea, palpitations, shortness of breath, Heart tones S1 S2 present Patient's skin is warm and dry. Rhythm is paced. Respiratory: Airway is patent Respiratory effort is even, unlabored, Respiratory pattern is regular, symmetrical, Breath sounds are clear bilaterally. GI: No signs and/or symptoms were reported involving the gastrointestinal system. : No signs and/or symptoms were reported regarding the genitourinary system. EENT: No signs and/or symptoms were reported regarding the EENT system. Derm: No signs and/or symptoms reported regarding the dermatologic system. Skin is pink, warm \T\ dry. normal. Musculoskeletal: No signs and/or symptoms reported regarding the musculoskeletal system. Circulation, motion, and sensation intact. 14:45 Reassessment: Patient appears in no apparent distress at this time. No changes from aj1 previously documented assessment. Patient and/or family updated on plan of care and expected duration. Pain level reassessed. Patient is alert, oriented x 3, equal unlabored respirations, skin warm/dry/pink. 15:45 Reassessment: Patient and/or family updated on plan of care and expected duration. Pain aj1 level reassessed. General: Appears in no apparent distress. comfortable, Behavior is calm, cooperative, appropriate for age. Pain: Denies pain. Neuro: Level of Consciousness is awake, alert, obeys commands, Oriented to person, place, time, situation, Speech is normal, Facial symmetry appears normal. Cardiovascular: Patient's skin is warm and dry. Rhythm is paced. Respiratory: Airway is patent Respiratory effort is even, unlabored, Respiratory pattern is regular, symmetrical. Derm: No signs and/or symptoms reported regarding the dermatologic system. Skin is pink, warm \T\ dry. normal. Musculoskeletal: No signs and/or symptoms reported regarding the musculoskeletal system. Circulation, motion, and sensation intact. 16:15 Reassessment: Patient appears in no apparent distress at this time. No changes from aj1 previously documented assessment. Patient and/or family updated on plan of care and expected duration. Pain level reassessed. Patient is alert, oriented x 3, equal unlabored respirations, skin warm/dry/pink. Vital Signs: 13:41 BP 125 / 80; Pulse 70; Resp 17; Temp 97.8(O); Pulse Ox 98% on R/A; Weight 90.72 kg (R); aj1 Height 5 ft. 7 in. (170.18 cm) (R); Pain 0/10; 14:45 BP 132 / 75; Pulse 62; Resp 18; Pulse Ox 97% on R/A; aj1 15:45 BP 137 / 85; Pulse 73; Resp 20; Pulse Ox 97% on R/A; aj1 16:16 BP 122 / 65; Pulse 70; Resp 17; Pulse Ox 98% on R/A; aj1 13:41 Body Mass Index 31.32 (90.72 kg, 170.18 cm) aj1 ED Course: 13:35 Patient arrived in ED. aj1 13:36 Triage completed. aj1 13:41 Arm band placed on. aj1 13:43 Patient has correct armband on for positive identification. Bed in low position. Call aj1 light in reach. Side rails up X 1. awake overnight monitor on. Pulse ox on. NIBP on. 13:43 No provider procedures requiring assistance completed. aj1 13:52 Jose Handy PA is PHCP. jr8 13:52 Ankush Sanabria MD is Attending Physician. jr8 14:17 Naila Murrieta, RN is Primary Nurse. aj1 14:35 XRAY Chest (1 view) In Process Unspecified. EDMS 14:45 Inserted saline lock: 20 gauge in right forearm, using aseptic technique. Blood mg2 collected. 15:06 EKG done, by conservation technician. reviewed by Jose CARMONA. dt2 15:52 Rolly Mcdonald MD is Referral Physician. jr8 16:13 IV discontinued, intact, bleeding controlled, No redness/swelling at site. Pressure aj1 dressing applied. Administered Medications: No medications were administered Outcome: 15:52 Discharge ordered by MD. jr8 16:16 Discharged to home via wheelchair, with friend. aj1 16:16 Condition: good 16:16 Discharge instructions given to patient, Instructed on discharge instructions, follow up and referral plans. medication usage, Demonstrated understanding of instructions, follow-up care, medications, Prescriptions given X 1. 16:17 Patient left the ED. aj1 Signatures: Dispatcher [employer] EDTN Naila Murrieta, SILVIA RN Jose Rodrigez PA PA jrKenn Edgar RN RN mg2 Pavithra Hallman dt2
--- NOTE | 2019-03-24 19:41 | EKG ---
Test Date: 2019-03-24 Test Time: 14:25:06 Partnership Marketing Manager: ANG/[place] MEASUREMENT RESULTS: Intervals: Rate: 71 SC: QRSD: 142 QT: 460 QTc: 499 [place]: P: SC: QRS: -28 T: 268 INTERPRETIVE STATEMENTS: AV dual-paced rhythm Abnormal ECG Compared to ECG 10/29/2018 16:49:51 No significant changes Electronically Signed On 03-24-19 19:40:20 CDT by Brock Aviles
== END 2019-03-24 16:17 | disposition home or self-care (01) ==
LOC: ER 13:26
DX: R42 Dizziness and giddiness (principal); I50.9 Heart failure, unspecified; J44.9 Chronic obstructive pulmonary disease, unspecified; E07.9 Disorder of thyroid, unspecified; Z79.01 Long term (current) use of anticoagulants; Z79.82 Long term (current) use of aspirin; Z88.2 Allergy status to sulfonamides; Z95.810 Presence of automatic (implantable) cardiac defibrillator; Z95.818 Presence of other cardiac implants and grafts
CPT/HCPCS: 36415; 71045; 80048; 80076; 83735; 83880; 84484; 85025; 85610; 93005

== ENCOUNTER 2019-04-14 08:41 | Day surgery (SDC) | payer OTHER ==
--- OUTSIDE RECORDS SUMMARY | 2019-04-14 08:43 | XMS REPORT ---
[...] Atherosclerosis of coronary artery I25.10 Active of [place] heart Assessment Depression with anxiety F41.8 Active [...] Problem 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 [place] coronary artery of [place] heart with angina pectoris Problem Bradycardia R00.1 Active Problem TIA (transient ischemic attack) G45.9 Active Problem Hypocalcemia E83.51 Active Problem Depression with anxiety F41.8 Active Problem Atherosclerosis of coronary artery I25.10 Active of [place] heart Problem Myocardial infarction I21.3 Active Problem Congestive heart failure, I50.9 Active unspecified HF chronicity, unspecified heart failure type Problem Vasovagal syncope R55 Active Assessment Peripheral vascular disease I73.9 Active Problem Gastritis K29.70 Active Assessment Iron deficiency anemia, D50.9 Active unspecified iron deficiency anemia type Problem Benign essential HTN I10 Active Assessment 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 [place] coronary artery of [place] heart with angina pectoris Problem Peripheral vascular [...] Date Status Dosage System Date BusPIRone HCl [facility] 15327681985 10 MG Orally Active 1 tablet Twice a day Trazodone HCl [facility] 44030261650 150 MG Orally Active take 1 Once a day tablet one time daily at bedtime Pravastatin [facility] 87861987954 10 MG Orally Active 1 tablet Sodium Once a day Vitamin D3 [facility] 29084188173 1000 UNIT Active 1 capsule Orally Once a day Ferrous Sulfate [facility] 58386352339 325 (65 Fe) MG Active 1 tablet Orally Once a day Levothyroxine [facility] 05264052771 100 MCG Orally Active 1 tablet Sodium Once a day on an empty stomach in the morning Citalopram [facility] 90257204354 20 MG Orally Active 1 tablet Hydrobromide Once a day ProAir HFA [facility] 48391054634 108 (90 Base) Active 2 puffs as MCG/ACT needed Inhalation every 6 hrs Symbicort [facility] 51492052965 160-4.5 MCG/ACT December Active 2 puffs Inhalation 2018 Twice a day Protonix [facility] 99031134153 40 MG Orally Active 1 tablet Once a day Aspir-81 [facility] 54859811128 81 MG Orally Active 1 tablet Once a day Furosemide [facility] 10328548285 20 MG Orally Active 1 tablet Once a day PRN Swelling Lisinopril [facility] 70498804661 2.5 MG Orally December Active 1 tablet Once a day 2018 Coreg [facility] 19169519687 3.125 MG Orally Active not defined Plavix [facility] 07549096716 75 MG Orally Active 1 tablet Once a day Results No Known Results Summary Purpose eClinicalWorks Submission
--- OUTSIDE RECORDS SUMMARY | 2019-04-14 08:43 | XMS REPORT ---
:1950 [facility] [address] [place] [address] [address]. [address] [place] [address] Care Team Providers Name Role Phone Unavailable Unavailable Unavailable Problems This patient has no known problems. Allergies, Adverse Reactions, Alerts This patient has no known allergies or adverse reactions. Medications This patient has no known medications.
--- OUTSIDE RECORDS SUMMARY | 2019-04-14 08:44 | XMS REPORT ---
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 Problem Bradycardia R00.1 Active Problem TIA (transient ischemic attack) G45.9 Active Problem Hypocalcemia E83.51 Active Problem Depression with anxiety F41.8 Active Problem Atherosclerosis of coronary artery I25.10 Active of [place] heart Problem Myocardial infarction I21.3 Active Problem Congestive heart failure, I50.9 Active unspecified HF chronicity, unspecified heart failure type Problem Vasovagal syncope R55 Active Assessment Peripheral vascular disease I73.9 Active Problem Gastritis K29.70 Active Assessment Iron deficiency anemia, D50.9 Active unspecified iron deficiency anemia type Problem Benign essential HTN I10 Active Assessment 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 42050423844 3.125 MG Orally Active not defined Ferrous Sulfate [facility] 68985293329 325 (65 Fe) MG Active 1 tablet Orally Once a day Furosemide [facility] 27616740534 20 MG Orally Active 1 tablet Once a day PRN Swelling BusPIRone HCl [facility] 74590509133 10 MG Orally Active 1 tablet Twice a day BusPIRone HCl [facility] 10357363928 10 MG Orally Active 1 tablet Twice a day Sulfasalazine [facility] 80615056203 500 MG Orally Active 2 tablet Once a day Symbicort [facility] 96032087643 160-4.5 MCG/ACT Active 2 puffs Inhalation Twice a day Protonix [facility] 41634337669 40 MG Orally Active 1 tablet Once a day Plavix [facility] 49090600675 75 MG Orally Active 1 tablet Once a day Aspir-[address] [facility] 84093034754 81 MG Orally Active 1 tablet Once a day Citalopram [facility] 97416959648 20 MG Orally Active 1 tablet Hydrobromide Once a day ProAir HFA [facility] 79187475433 108 (90 Base) Active 2 puffs as MCG/ACT needed Inhalation every 6 hrs Lisinopril [facility] 49150520675 2.5 MG Orally Active 1 tablet Once a day Levothyroxine [facility] 00878963713 100 MCG Orally Active 1 tablet Sodium Once a day on an empty stomach in the morning Vitamin D3 [facility] 40135465216 1000 UNIT Active 1 capsule Orally Once a day Trazodone HCl [facility] 63303897754 150 MG Orally Active take 1 Once a day tablet one time daily at bedtime Pravastatin [facility] 96250092369 40 MG Orally Active 1 tablet Sodium Once a day Results No Known Results Summary Purpose eClinicalWorks Submission
--- NOTE | 2019-04-14 11:30 | RAD REPORT ---
EXAM DESCRIPTION: RAD - Lumbar Spine 3 Views - 04/14/2019 11:24 am CLINICAL HISTORY: Back pain FINDINGS: Osteoporosis Old moderate compression fracture involves the L1 vertebral body Marked spondylosis L3-4 consisting disc space narrowing, subchondral sclerosis and osteophytes No acute fracture or dislocation
--- NOTE | 2019-04-14 11:31 | RAD REPORT ---
EXAM DESCRIPTION: RAD - C Spine Ap/Lat - 04/14/2019 11:24 am CLINICAL HISTORY: Neck pain FINDINGS: The alignment of the cervical spine is satisfactory. No fracture or dislocation is seen. Mild spondylosis involves mid and distal cervical spine. Osteoporosis
--- NOTE | 2019-04-14 12:18 | RAD REPORT ---
EXAM DESCRIPTION: RAD - Myelography Lumbar - 04/14/2019 11:32 am CLINICAL HISTORY: Leg radiculopathy COMPARISON: None FINDINGS: The risks, benefits and alternatives of the procedure explained to the patient and informe d consent obtained Patient was placed prone into the fluoroscopy suite. Skin and subcutaneous tissues were anesthetized with Lidocaine. Under fluoroscopic guidance a 22 spinal gauge needle was advanced into the thecal sac at the L1-2 level and 12 cc 300 Isovue administered into the thecal sac Frontal, oblique and lateral spot images of the lumbar spine obtained. Spondylosis involves L3-4. Mild encroachment upon the thecal sac is demonstrated. Please refer to the CT lumbar spine report on the same date for additional findings Fluoroscopy time 2 minutes. Nine fluoroscopic spot images obtained Patient experienced no immediate complication IMPRESSION: Lumbar myelogram
--- NOTE | 2019-04-14 12:30 | RAD REPORT ---
EXAM DESCRIPTION: CTSpine Lumbar Wo Con04/14/2019 11:25 am CLINICAL HISTORY: Leg radiculopathy TECHNIQUE: Computed axial tomography lumbar spine was obtained with coronal and sagittal reconstruct ion. 12 cc Isovue-300 was administered into the thecal sac. All CT scans are performed using dose optimization technique as appropriate and may include automated exposure control or mA/KV adjustment according to patient size. FINDINGS: Moderate old compression fracture involves the L1 vertebral body. No acute fracture or dislocation Minimal spondylosis T12-L1 Minimal spondylosis L1-2 Small disc bulge at L2-3 minimally encroaching upon thecal sac. Neural foramina appear patent L3-4 disc is thinned. A vacuum phenomena. Disc bulge and osteophytes are present. Mild encroachment o f the thecal sac is seen. The thecal sac measures 11 millimeters. Mild narrowing of the neural forami na bilaterally. L4-5 and L5-S1 are unremarkable IMPRESSION: Spondylosis most prevalent at L3-4 results in mild bilateral foraminal stenosis Central spinal stenosis is not seen at any level.
[2019-04-14 12:54] VITALS: BMI 31.3
--- NOTE | 2019-04-14 13:00 | RAD REPORT ---
EXAM DESCRIPTION: CT - Myelogram C Spine - 04/14/2019 11:43 am CLINICAL HISTORY: Arm radiculopathy TECHNIQUE: Computed axial tomography of the cervical spine was obtained with coronal and sagittal re construction. 12 cc Isovue-300 administered into the thecal sac All CT scans are performed using dose optimization technique as appropriate and may include automated exposure control or mA/KV adjustment according to patient size. FINDINGS: C2-3 is unremarkable. Minimal disc bulge C3-4 Small disc bulge C4-5 minimally encroaches upon the thecal sac. Neural foramina are patent Small disc bulge C5-6. Thecal sac measures 11 millimeters. Mild narrowing of left neural foramina. Small disc bulge C6-7. Minimal narrowing the right neural foramina C7-T1 unremarkable. IMPRESSION: Mild spondylosis most marked C5-6 resulting in mild left foraminal stenosis
[2019-04-14 15:06] VITALS: O2SAT 99
[2019-04-14 15:07] VITALS: BP 127/58; TEMP 98.5
== END 2019-04-14 14:30 | disposition home or self-care (01) ==
LOC: DS 08:41
PROVIDERS: ATTEND Specialist
DX: M47.812 Spondylosis without myelopathy or radiculopathy, cervical region (principal); M54.2 Cervicalgia; M54.5 Low back pain; M47.26 Other spondylosis with radiculopathy, lumbar region; M48.061 Spinal stenosis, lumbar region without neurogenic claudication; M54.16 Radiculopathy, lumbar region; M81.0 Age-related osteoporosis without current pathological fracture; Z95.0 Presence of cardiac pacemaker; Z79.02 Long term (current) use of antithrombotics/antiplatelets; Z79.82 Long term (current) use of aspirin
CPT/HCPCS: 62302; 62304; 72040; 72100; 72126; 72131

== ENCOUNTER 2019-10-25 16:50 | Observation (INO) | payer OTHER ==
--- OUTSIDE RECORDS SUMMARY | 2019-10-25 16:52 | XMS REPORT ---
:1950 [facility] Address [address] [place] [address] [address]. Brown [address] [place] [address] Care Team Providers Name Role Phone Unavailable Unavailable Unavailable Problems This patient has no known problems. Allergies, Adverse Reactions, Alerts This patient has no known allergies or adverse reactions. Medications This patient has no known medications.
--- OUTSIDE RECORDS SUMMARY | 2019-10-25 16:54 | XMS REPORT ---
:1950 Author Organization e[employer] Care Team Providers Name Role Phone Benedict Onel Provider Role Unavailable Allergies No Known Allergies Problems Problem Type Condition Code Onset Dates Condition Status Problem Iron deficiency anemia, D50.9 Active unspecified iron deficiency anemia type Problem Chronic obstructive pulmonary J44.9 Active disease, unspecified COPD type Problem Femur fracture S72.90XA Active Problem Internal hemorrhoids K64.8 Active Problem Depression with anxiety F41.8 Active Problem Acute chronic obstructive J44.9 Active pulmonary disease with respiratory distress Problem Diverticulosis large intestine w/o K57.30 Active perforation or abscess w/o bleeding Problem Myocardial infarction I21.3 Active Problem Hypocalcemia E83.51 Active Problem 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 Problem Peripheral vascular disease I73.9 Active Problem Bradycardia R00.1 Active Problem Age-related osteoporosis without M81.0 Active current pathological fracture Problem TIA (transient ischemic attack) G45.9 Active Problem Vasovagal syncope R55 Active Problem Atherosclerosis of coronary artery I25.10 Active of [place] heart Problem 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 [place] coronary artery of [place] heart with angina pectoris Problem Congestive heart failure, I50.9 Active unspecified HF chronicity, unspecified heart failure type Problem Benign essential HTN I10 Active Problem Hypothyroidism E03.9 Active Problem Insomnia G47.00 Active Problem Gastritis K29.70 Active Problem Stented coronary artery Z95.5 Active Problem Head ache R51 Active Problem Dizziness R42 Active Problem Allergic rhinitis J30.9 Active Medications Medication Code Code Instructions Start End Status Dosage System Date Date Trazodone HCl [facility] 83558015298 150 MG Orally Active 1 tablet Once a day at bedtime Results No Known Results Summary Purpose eClinicalWorks Submission
--- OUTSIDE RECORDS SUMMARY | 2019-10-25 16:54 | XMS REPORT ---
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 46565749507 150 MG Orally Active 1 tablet Once a day at bedtime Results No Known Results Summary Purpose eClinicalWorks Submission
--- OUTSIDE RECORDS SUMMARY | 2019-10-25 16:54 | XMS REPORT ---
:1950 Author Organization eClinical[employer] Care Team Providers Name Role Phone McmullenOnel Provider Role Unavailable Allergies, Adverse Reactions, Alerts Substance Reaction Event Type N.K.D.A. Info Not Available Non Drug Allergy Problems Problem Type Condition Code Onset Dates Condition Status Assessment Benign essential HTN I10 Active Assessment Atherosclerosis of coronary artery I25.10 Active of [place] heart Assessment Depression with anxiety F41.8 Active Assessment Insomnia G47.00 Active Assessment Age-related osteoporosis without M81.0 Active current pathological fracture Assessment Hypothyroidism E03.9 Active Assessment Congestive heart failure, I50.9 Active unspecified HF chronicity, unspecified heart failure type Problem Iron deficiency anemia, D50.9 Active unspecified [...] disease I73.9 Active Problem Bradycardia R00.1 Active Assessment Head ache R51 Active Problem Age-related osteoporosis without M81.0 Active current pathological fracture Problem TIA (transient ischemic attack) G45.9 Active Assessment History of fall Z91.81 Active Problem Vasovagal syncope R55 Active Problem Atherosclerosis of coronary artery I25.10 Active of [place] heart Problem 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 Problem Congestive heart failure, I50.9 Active unspecified HF chronicity, unspecified heart failure type Assessment 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 Problem Benign essential HTN I10 Active Assessment Chronic obstructive pulmonary J44.9 Active disease, unspecified COPD type Problem Hypothyroidism E03.9 Active Assessment Peripheral vascular disease I73.9 Active Problem Insomnia G47.00 Active Assessment 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 Problem Gastritis K29.70 Active Assessment Iron deficiency anemia, D50.9 Active unspecified iron deficiency anemia type Problem Stented coronary artery Z95.5 Active Assessment Diverticulosis large intestine w/o K57.30 Active perforation or abscess w/o bleeding Problem Head ache R51 Active Problem Dizziness R42 Active Problem Allergic rhinitis J30.9 Active Medications Medication Code Code Instructions Start End Status Dosage System Date Date [facility] 23692655483 81 MG Orally Active 1 tablet Once a day Lisinopril [facility] 73038727746 2.5 MG Orally Active 1 tablet Once a day Vitamin D3 [facility] 72089773991 1000 UNIT Active 1 capsule Orally Once a day Trazodone HCl [facility] 88172904052 150 MG Orally Active take 1 Once a day tablet one time daily at bedtime Tramadol HCl [facility] 39149554607 50 MG Orally Sep 06, Active 1 tablet as Once a day PRN 2019 needed SEVERE PAIN Sulfasalazine [facility] 90066195639 500 MG Orally Active 2 tablet Once a day Furosemide [facility] 14239537448 20 MG Orally Active 1 tablet Once a day PRN Swelling Symbicort [facility] 93028135654 160-4.5 MCG/ACT Active 2 puffs Inhalation Twice a day ProAir HFA [facility] 25643276233 108 (90 Base) Active 2 puffs as MCG/ACT needed Inhalation every 6 hrs Apriso [facility] 62338121195 0.375 GM Orally Active 4 capsules Once a day in the morning Pravastatin [facility] 12767672668 40 MG Orally Active 1 tablet Sodium Once a day Coreg [facility] 86219261743 3.125 MG Orally Active not defined Ferrous Sulfate [facility] 35369728919 325 (65 Fe) MG Active 1 tablet Orally Once a day BusPIRone HCl [facility] 09507904797 10 MG Orally Active 1 tablet Twice a day Protonix [facility] 99306283734 40 MG Orally Active 1 tablet Once a day Plavix [facility] 49821098910 75 MG Orally Active 1 tablet Once a day Levothyroxine [facility] 41923505354 100 MCG Orally Active 1 tablet on Sodium Once a day an empty stomach in the morning Citalopram [facility] 52896088068 20 MG Orally Active 1 tablet Hydrobromide Once a day Results No Known Results Summary Purpose eClinicalWorks Submission
[2019-10-25] MEDS ORDERED: ONDANSETRON 4 MG/2 ML VIAL ONE (17:25)
[2019-10-25] MEDS ORDERED: MORPHINE 4 MG/ML SYR ONE (17:25)
--- NOTE | 2019-10-25 17:33 | RAD REPORT ---
EXAM DESCRIPTION: RAD - Chest Single View - 10/25/2019 5:28 pm CLINICAL HISTORY: CHEST PAIN Chest pain. COMPARISON: Chest Single View dated 03/24/2019; Chest Single View dated 02/14/2018; Chest Single View d ated 12/11/2017; Chest Single View dated 08/03/2017 FINDINGS: Portable technique limits examination quality. The lungs are grossly clear. The heart is normal in size. No displaced fractures.Multi lead pacer/def ibrillator device. IMPRESSION: No acute intrathoracic process suspected.
[2019-10-25 18:07] LABS: ALT/SGPT 22 U/L (12-78); AST/SGOT 77 U/L (15-37); Albumin 3.7 g/dL (3.4-5.0); Alkaline Phosphatase 54 U/L (45-117); BUN Blood Urea Nitrogen 14 mg/dL (7-18); Bicarbonate 27 mmol/L (21-32); Bilirubin Direct 0.1 mg/dL (0-0.2); Bilirubin Total 0.4 mg/dL (0.2-1.0); Glucose Level 98 mg/dL (74-106); Magnesium 2.2 mg/dL (1.8-2.4); NT PRO-BNP 140 pg/mL (<125); Potassium 4.1 mmol/L (3.5-5.1); Protein, Total 7.2 g/dL (6.4-8.2); Sodium Level 139 mmol/L (136-145); Troponin (Emerg Dept Use Only) < 0.02 ng/mL (0.0-0.045)
[2019-10-25] MEDS ORDERED: FENTANYL CITR 100 MCG/2 ML ONE (18:26)
[2019-10-25] MEDS ORDERED: NA CHLORIDE 0.9% 500 ML ONE (18:26)
[2019-10-25 18:38] LABS: Absolute Lymphocytes (CBC) 1.3 K/uL (0.7-4.9); Basophils % 0.9 % (0-1.3); Hematocrit 34.4 % (36.0-45.0); Lymphocytes % 26.8 % (15.3-44.8); MPV 7.9 fL (7.6-11.3)
--- NOTE | 2019-10-25 19:18 | RAD REPORT ---
EXAM DESCRIPTION: CT - Angio Aorta For Dissection - 10/25/2019 6:59 pm CLINICAL HISTORY: Chest pain radiating to the back. CHEST PAIN COMPARISON: Abdomen Exam Complete dated 08/27/2019; Abdomen W/Wo Contrast dated 10/30/2018; Abdomen P nina W Contrast dated 08/03/2017 TECHNIQUE: CT angiography of the aorta was performed with MIPs. All CT scans are performed using dose optimization technique as appropriate and may include automated exposure control or mA/KV adjustment according to patient size. FINDINGS: A left aortic arch is present with normal branching pattern of the great vessels.No acute aortic finding is seen such as aneurysm, penetrating ulcer or dissection. The celiac axis, SMA, AJITH and renal arteries are patent. No evidence of pulmonary embolism. Pacemaker device noted. The lungs are mildly emphysematous but clear. 5-6 mm nodule is present in right apex, nonspecific. Low-density hepatic lesions are present including anterior left lobe liver measuring 24 x 16 mm area inferior right lower measuring 41 x 36 mm. These appears similar in size compared to prior examinatio ns. No biliary dilatation.The spleen, pancreas, adrenal glands and kidneys are within normal limits f or arterial phase imaging. No bowel obstruction, free fluid or abscess.Mild sigmoid diverticulosis coli without diverticulitis. Normal appendix.No pathologic enlarged lymphadenopathy identified. Left total hip arthroplasty. No acute fracture evident. IMPRESSION: No acute aortic finding is demonstrated.
--- NOTE | 2019-10-25 19:32 | ER ---
Nurse's Notes [facility] Name: Maryan Tripp Age: 69 yrs Sex: Female : 1950 Arrival Date: 10/25/2019 Time: 16:57 Bed 5 Private MD: Diagnosis: Chest pain, unspecified Presentation: 10/25 16:57 Presenting complaint: EMS states: called out for chest pain that radiates left arm/left em jaw that started about 2 hours ago, also reports being dizzy for 2 days, was given [address] [employer] WORK[employer], VSS. Transition of care: patient was not received from another setting of care. Onset of symptoms was October 25, 2019. Risk Assessment: Do you want to hurt yourself or someone else? Patient reports no desire to harm self or others. Initial Sepsis Screen: Does the patient meet any 2 criteria? No. Patient's initial sepsis screen is negative. Does the patient have a suspected source of infection? No. Patient's initial sepsis screen is negative. Care prior to arrival: None. 16:57 Method Of Arrival: EMS: [facility] em 16:57 Acuity: BRAYAN 3 em Historical: - Allergies: 17:01 Sulfa (Sulfonamide Antibiotics); em - PMHx: 17:01 cardiac stents; CHF; COPD; Myocardial infarction; Pacemaker; /defibrilator; Thyroid em problem; - PSHx: 17:57 Cholecystectomy; Hysterectomy; Tonsillectomy; wrist surgery; ankle surgery; melanoma em surgery; - Immunization history:: Adult Immunizations up to date, Flu vaccine is not up to date. - Coronavirus screen:: The patient has NOT traveled to [place], [place], or [place] in the past 14 days. The patient has NOT had contact with known/suspected case of Coronavirus?. - Social history:: Smoking status: . - Ebola Screening: : Patient negative for fever greater than or equal to 101.5 degrees Fahrenheit, and additional compatible Ebola Virus Disease symptoms Patient denies exposure to infectious person Patient denies travel to an Ebola-affected area in the 21 days before illness onset No symptoms or risks identified at this time. Screenin:57 Abuse screen: Denies threats or abuse. Nutritional screening: No deficits noted. tw2 Tuberculosis screening: No symptoms or risk factors identified. Fall Risk Secondary diagnosis (15 points) impaired mobility. Assessment: 16:58 General: Appears in no apparent distress. comfortable, Behavior is calm, cooperative, em Denies fever. Pain: Complains of pain in chest Pain radiates to left jaw and left arm Pain currently is 4 out of 10 on a pain scale. at worst was 7 out of 10 on a pain scale. Pain began 2 hours ago. Neuro: Level of Consciousness is awake, alert, obeys commands, Oriented to person, place, time, situation, Appropriate for age Reports dizziness. Cardiovascular: Reports diaphoresis, Capillary refill < 3 seconds Patient's skin is warm and dry. Rhythm is atrial pacer ventricular pacer. Respiratory: Airway is patent Respiratory effort is even, unlabored, Respiratory pattern is regular, symmetrical. Derm: Skin is intact, is healthy with good turgor, Skin is pink, warm \T\ dry. Musculoskeletal: Capillary refill < 3 seconds, Range of motion: intact in all extremities. 18:17 Reassessment: spoke with Gregory at [employer], reports pacemaker is working normal, and em will fax over report, provider notified. 19:05 Reassessment: Patient appears in no apparent distress at this time. Patient and/or jb4 family updated on plan of care and expected duration. Pain level reassessed. Patient is alert, oriented x 3, equal unlabored respirations, skin warm/dry/pink. 20:00 Reassessment: Patient appears in no apparent distress at this time. Patient and/or jb4 family updated on plan of care and expected duration. Pain level reassessed. Patient is alert, oriented x 3, equal unlabored respirations, skin warm/dry/pink. 20:50 Reassessment: Patient appears in no apparent distress at this time. Patient and/or jb4 family updated on plan of care and expected duration. Pain level reassessed. Patient is alert, oriented x 3, equal unlabored respirations, skin warm/dry/pink. Vital Signs: 17:01 BP 137 / 78; Pulse 73; Resp 18; Pulse Ox 98% on R/A; Weight 90.72 kg; Height 5 ft. 7 em in. (170.18 cm) (M); Pain 4/10; 17:25 Temp 97.6(TE); em 17:45 BP 99 / 63; Pulse 67; Resp 16; Pulse Ox 99% on R/A; tw2 18:04 BP 110 / 65; Pulse 73; Resp 16; Pulse Ox 100% on 2 lpm NC; tw2 18:30 BP 121 / 75; Pulse 77; Resp 18; Pulse Ox 100% on 2 lpm NC; em 19:00 Pain 3/10; tw2 19:30 BP 110 / 71; Pulse 70; Resp 11; Pulse Ox 97% on R/A; jb4 20:45 BP 110 / 71; Pulse 70; Resp 16; Temp 97.8(TE); Pulse Ox 97% on R/A; jb4 17:01 Body Mass Index 31.32 (90.72 kg, 170.18 cm) em 18:04 pt placed on nc at 2L for comfort at this time, o2 sat has remained above 96% during tw2 pts time in exam room. ED Course: 16:57 Patient arrived in ED. tw2 16:57 Alex Basilio, SILVIA is Primary Nurse. em 16:57 Les Moore NP is PHCP. pm1 16:57 Barrera Cool MD is Attending Physician. pm1 16:58 Arm band placed on. tw2 16:58 Bed in low position. Call light in reach. satellite project site monitor on. Pulse ox on. NIBP on. tw2 16:59 Triage completed. em 17:01 Maintain EMS IV. Dressing intact. Good blood return noted. Site clean \T\ dry. Gauge \T\ em site: 20 LAC. Patient maintains SpO2 saturation greater than 95% on room air. 17:29 XRAY Chest (1 view) In Process Unspecified. EDMS 17:45 Inserted saline lock: 20 gauge in right antecubital area, using aseptic technique. tw2 Blood collected. 18:59 CT Aorta for Dissection In Process Unspecified. EDMS 18:59 CT completed. Patient tolerated procedure well. Patient moved back from CT. bq 19:31 Juan Pizarro MD is Hospitalizing Provider. pm1 20:56 No provider procedures requiring assistance completed. Patient admitted, IV remains in jb4 place. Administered Medications: 17:19 Not Given (pt reports it drops BP low to where she almost passed out): Nitroglycerin em 0.4 mg Sublingual once; every five minute if needed x3 17:46 Drug: Zofran 4 mg Route: IVP; Site: right antecubital; tw2 18:26 Follow up: Response: No adverse reaction tw2 17:49 Drug: morphine 4 mg Route: IVP; Site: right antecubital; tw2 18:26 Follow up: Response: No adverse reaction; Pain is unchanged, physician notified; RASS: tw2 Alert and Calm (0) 18:26 Drug: fentaNYL (PF) 25 mcg Route: IVP; Site: right antecubital; em 19:00 Follow up: Pain 3/10 Adult; Response: No adverse reaction; Pain is unchanged, physician tw2 notified 18:26 Drug: NS 0.9% 500 ml Route: IV; Rate: bolus; Site: right antecubital; em 19:00 Follow up: Response: No adverse reaction; IV Status: Completed infusion; IV Intake: em 500ml 19:55 Drug: Lovenox 1 mg/kg Route: Sub-Q; Site: right lower abdomen; jb4 20:57 Follow up: Response: No adverse reaction jb4 Intake: 19:00 IV: 500ml; Total: 500ml. em Outcome: 19:31 Decision to Hospitalize by Provider. pm1 20:56 Admitted to Med/surg accompanied by tech, via wheelchair, room 219, with chart. jb4 20:56 Condition: stable 20:56 Discharge instructions given to patient, Instructed on the need for admit, Demonstrated understanding of instructions. 21:18 Patient left the ED. jb4 Signatures: Dispatcher [employer] Nel Jamil Edgar, RN RN em Les Moore, MANAGER SHIFT MANAGER SHIFT pm1 Mendy Mtz RN RN tw2 Delvin Lin RN RN jb4
--- NOTE | 2019-10-25 19:32 | EDPHYS ---
Physician Documentation [facility] Name: Maryan Tripp Age: 69 yrs Sex: Female : 1950 Arrival Date: 10/25/2019 Time: 16:57 Bed 5 Private MD: ED Physician Barrera Cool HPI: 10/25 17:04 This 69 yrs old Female presents to ER via EMS with complaints of Chest Pain. pm1 17:04 The patient or guardian reports chest pain that is located primarily in the anterior pm1 aspect of left upper chest. Onset: today, at 15:30. The pain radiates to the left arm, left jaw, back. Associated signs and symptoms: Pertinent positives: Dizziness on and off over the past two days, Pertinent negatives: abdominal pain, cough, nausea, shortness of breath, vomiting. The chest pain is described as Tingling and burning. Duration: The patient or guardian reports a single episode, that is still ongoing. Severity of pain: in the emergency department the pain is a 5 / 10. The patient has not recently seen a physician, the patient's primary care provider is Dr. Onel Mcmullen, Learning Analyst: CHF physicians/ partner's of Dr. Blakely. Historical: - Allergies: 17:01 Sulfa (Sulfonamide Antibiotics); em - PMHx: 17:01 cardiac stents; CHF; COPD; Myocardial infarction; Pacemaker; /defibrilator; Thyroid em problem; - PSHx: 17:57 Cholecystectomy; Hysterectomy; Tonsillectomy; wrist surgery; ankle surgery; melanoma em surgery; - Immunization history:: Adult Immunizations up to date, Flu vaccine is not up to date. - Coronavirus screen:: The patient has NOT traveled to [place], [place], or [place] in the past 14 days. The patient has NOT had contact with known/suspected case of Coronavirus?. - Social history:: Smoking status: . - Ebola Screening: : Patient negative for fever greater than or equal to 101.5 degrees Fahrenheit, and additional compatible Ebola Virus Disease symptoms Patient denies exposure to infectious person Patient denies travel to an Ebola-affected area in the 21 days before illness onset No symptoms or risks identified at this time. ROS: 17:04 Constitutional: Negative for fever, chills, and weight loss, Neck: Negative for injury, pm1 pain, and swelling. 17:04 Respiratory: Negative for shortness of breath, cough, wheezing, and pleuritic chest pain, Abdomen/GI: Negative for abdominal pain, nausea, vomiting, diarrhea, and constipation. 17:04 MS/Extremity: Negative for injury and deformity, Skin: Negative for injury, rash, and discoloration. 17:04 Cardiovascular: Positive for chest pain, Negative for edema, palpitations. 17:04 Back: Positive for pain at rest, of the mid back area, Negative for decreased range of motion, pain with movement. 17:04 Neuro: Positive for dizziness, Negative for numbness, tingling. Exam: 17:04 Constitutional: This is a well developed, well nourished patient who is awake, alert, pm1 and in no acute distress. Head/Face: Normocephalic, atraumatic. Neck: Trachea midline, no thyromegaly or masses palpated, and no cervical lymphadenopathy. Supple, full range of motion without nuchal rigidity, or vertebral point tenderness. No Meningismus. Chest/axilla: Normal chest wall appearance and motion. Nontender with no deformity. No lesions are appreciated. Cardiovascular: Regular rate and rhythm with a normal S1 and S2. No gallops, murmurs, or rubs. Normal PMI, no JVD. No pulse deficits. Respiratory: Lungs have equal breath sounds bilaterally, clear to auscultation and percussion. No rales, rhonchi or wheezes noted. No increased work of breathing, no retractions or nasal flaring. Abdomen/GI: Soft, non-tender, with normal bowel sounds. No distension or tympany. No guarding or rebound. No evidence of tenderness throughout. 17:04 Skin: Warm, dry with normal turgor. Normal color with no rashes, no lesions, and no evidence of cellulitis. MS/ Extremity: Pulses equal, no cyanosis. Neurovascular intact. Full, normal range of motion. 17:04 Back: pain, that is mild, of the left mid back and right mid back, normal spinal alignment noted. 17:04 Neuro: Orientation: is normal, Mentation: is normal, Motor: is normal, moves all fours. Vital Signs: 17:01 BP 137 / 78; Pulse 73; Resp 18; Pulse Ox 98% on R/A; Weight 90.72 kg; Height 5 ft. 7 em in. (170.18 cm) (M); Pain 4/10; 17:25 Temp 97.6(TE); em 17:45 BP 99 / 63; Pulse 67; Resp 16; Pulse Ox 99% on R/A; tw2 18:04 BP 110 / 65; Pulse 73; Resp 16; Pulse Ox 100% on 2 lpm NC; tw2 18:30 BP 121 / 75; Pulse 77; Resp 18; Pulse Ox 100% on 2 lpm NC; em 19:00 Pain 3/10; tw2 19:30 BP 110 / 71; Pulse 70; Resp 11; Pulse Ox 97% on R/A; jb4 20:45 BP 110 / 71; Pulse 70; Resp 16; Temp 97.8(TE); Pulse Ox 97% on R/A; jb4 17:01 Body Mass Index 31.32 (90.72 kg, 170.18 cm) em 18:04 pt placed on nc at 2L for comfort at this time, o2 sat has remained above 96% during tw2 pts time in exam room. MDM: 16:58 Patient medically screened. [facility] 19:11 Data reviewed: vital signs. Data interpreted: Pulse oximetry: on room air is 100 %. pm1 Interpretation: normal. 19:31 Counseling: I had a detailed discussion with the patient and/or guardian regarding: the pm1 historical points, exam findings, and any diagnostic results supporting the discharge/admit diagnosis, lab results, radiology results, the need for further work-up and treatment in the hospital. 19:35 Physician consultation: Juan Pizarro MD was called at 19:35, was contacted at 19:35, pm1 regarding admission, patient's condition, and will see patient. 10/25 17:05 Order name: Basic Metabolic Panel; Complete Time: 18:29 pm1 10/25 17:05 Order name: CBC with Diff; Complete Time: 19:20 pm1 10/25 17:05 Order name: LFT's; Complete Time: 18:29 pm1 10/25 17:05 Order name: Magnesium; Complete Time: 18:29 pm1 10/25 17:05 Order name: NT PRO-BNP; Complete Time: 18:29 pm1 10/25 17:05 Order name: PT-INR pm1 10/25 17:05 Order name: Troponin (emerg Dept Use Only); Complete Time: 18:29 pm1 10/25 17:05 Order name: XRAY Chest (1 view); Complete Time: 18:04 pm1 10/25 19:56 Order name: Basic Metabolic Panel ED[facility] 10/25 19:56 Order name: Basic Metabolic Panel [facility] 10/25 19:56 Order name: CBC with Automated Diff [facility] 10/25 19:56 Order name: CBC with Automated Diff [facility] 10/25 19:56 Order name: Lipid Profile [facility] 10/25 19:56 Order name: Lipid Profile [facility] 10/25 17:05 Order name: EKG; Complete Time: 17:05 pm1 10/25 17:05 Order name: Cardiac monitoring; Complete Time: 17:08 pm1 10/25 17:05 Order name: EKG - Nurse/Tech; Complete Time: 17:08 pm10/25 17:05 Order name: IV Saline Lock; Complete Time: 17:08 pm1 10/25 18:31 Order name: CT Aorta for Dissection; Complete Time: 19:28 pm1 10/25 19:56 Order name: CONS Physician Consult [facility] 10/25 19:56 Order name: Heart Healthy [facility] 10/25 19:56 Order name: Echo with Doppler [facility] 10/25 19:56 Order name: EKG Electrocardiogram [facility] 10/25 19:56 Order name: EKG Electrocardiogram [facility] 10/25 17:05 Order name: Labs collected and sent; Complete Time: 17:59 pm1 10/25 17:05 Order name: O2 Per Protocol; Complete Time: 17:08 pm1 10/25 17:05 Order name: O2 Sat Monitoring; Complete Time: 17:08 pm1 10/25 18:02 Order name: Labs - recollect needed: recollect blue and purple tops please.; Complete eb Time: 18:25 Administered Medications: 17:19 Not Given (pt reports it drops BP low to where she almost passed out): Nitroglycerin em 0.4 mg Sublingual once; every five minute if needed x3 17:46 Drug: Zofran 4 mg Route: IVP; Site: right antecubital; tw2 18:26 Follow up: Response: No adverse reaction tw2 17:49 Drug: morphine 4 mg Route: IVP; Site: right antecubital; tw2 18:26 Follow up: Response: No adverse reaction; Pain is unchanged, physician notified; RASS: tw2 Alert and Calm (0) 18:26 Drug: fentaNYL (PF) 25 mcg Route: IVP; Site: right antecubital; em 19:00 Follow up: Pain 3/10 Adult; Response: No adverse reaction; Pain is unchanged, physician tw2 notified 18:26 Drug: NS 0.9% 500 ml Route: IV; Rate: bolus; Site: right antecubital; em 19:00 Follow up: Response: No adverse reaction; IV Status: Completed infusion; IV Intake: em 500ml 19:55 Drug: Lovenox 1 mg/kg Route: Sub-Q; Site: right lower abdomen; jb4 20:57 Follow up: Response: No adverse reaction jb4 Disposition: 10/25/19 19:31 Hospitalization ordered by Juan Pizarro for Observation. Preliminary diagnosis is Chest pain, unspecified. - Bed requested for Telemetry/MedSurg (observation). - Status is Observation. jb4 - Condition is Stable. - Problem is new. - Symptoms have improved. UTI on Admission? No Addendum: 10/27/2019 07:32 Co-signature as Attending Physician, Barrera Cool MD I agree with the assessment and c sarah plan of care. Signatures: Dispatcher [employer] EDKY Mariel Corea RN RN mw Anderson, Corey, MD MD cha Munoz, Edgar RN RN Les Moore, YARITZA AUGER PRESS OPERATOR pm1 Mendy Mtz RN RN tw2 Delvin Lin RN RN [facility] Karli Rodriguez Corrections: (The following items were deleted from the chart) 10/25 20:13 19:31 Hospitalization Ordered by Juan Pizarro MD for Observation. Preliminary mw diagnosis is Chest pain, unspecified. Bed requested for Telemetry/MedSurg (observation). Status is Observation. Condition is Stable. Problem is new. Symptoms have improved. UTI on Admission? No. pm1 20:15 20:13 10/25/2019 19:31 Hospitalization Ordered by Juan Pizarro MD for Observation. mw Preliminary diagnosis is Chest pain, unspecified. Bed requested for Telemetry/MedSurg (observation). Status is Observation. Condition is Stable. Problem is new. Symptoms have improved. UTI on Admission? No. mw 21:18 20:15 10/25/2019 19:31 Hospitalization Ordered by Juan Pizarro MD for Observation. jb4 Preliminary diagnosis is Chest pain, unspecified. Bed requested for Telemetry/MedSurg (observation). Status is Observation. Condition is Stable. Problem is new. Symptoms have improved. UTI on Admission? No. mw
[2019-10-25] MEDS ORDERED: ENOXAPARIN 30 MG/0.3 ML SQ ONE (19:50)
[2019-10-25] MEDS ORDERED: ENOXAPARIN 60 MG/0.6 ML SQ ONE (19:50)
[2019-10-25] MEDS ORDERED: ACETAMINOPHEN 500 MG TAB PO PRN (19:51)
[2019-10-25] MEDS ORDERED: ALPRAZOLAM 0.25 MG TABLET PO PRN (19:51)
[2019-10-25] MEDS: METOPROLOL TAR 50 MG TAB PO SCH (21:36)
[2019-10-25 22:19] VITALS: BMI 31.8
[2019-10-26] MEDS ORDERED: INFLUENZA VACCINE (for 3y+) 0.5 ML DOSE IMVAC ONE (06:00)
[2019-10-26 06:22] LABS: Absolute Lymphocytes (CBC) 1.4 K/uL (0.7-4.9); Basophils % 0.7 % (0-1.3); Hematocrit 32.8 % (36.0-45.0); Lymphocytes % 40.1 % (15.3-44.8); MPV 8.1 fL (7.6-11.3); RBC Red Blood Cell Count 4.18 M/uL (3.86-4.86)
[2019-10-26 06:41] LABS: Potassium 4.4 mmol/L (3.5-5.1)
[2019-10-26] MEDS: METOPROLOL TAR 50 MG TAB PO SCH (08:51)
--- NOTE | 2019-10-26 08:52 | P.HP ---
Certification for Inpatient Patient admitted to: Observation With expected LOS: <2 Midnights Patient will require the following post-hospital care: None Practitioner: I am a practitioner with admitting privileges, knowledge of patient current condition, hospital course, and medical plan of care. Services: Services provided to patient in accordance with Admission requirements found in Title 42 Section 412.3 of the Code of Federal Regulations Patient History Date of Service: 10/25/19 Reason for admission: Chest pain rule out acute coronary syndrome History of Present Illness: Patient is a 69-year-old female came to the hospital with chest discomfort. Pain was mainly in the sternal region. The pain went down her left arm to her left upper extremity fingers. The pain also went up the left side of the neck. She denies having shortness of breath or diaphoresis. She Has a significant history of coronary artery disease and follows up at [facility] at the [facility]. She has an implantable defibrillator. She is also on Entresto. She will be admitted to the hospital for further evaluation to be ruled out for acute coronary syndrome. She does have multiple risk factors so will have Cardiology consultation placed as well. Allergies Sulfa (Sulfonamide Antibiotics) Allergy (Verified 10/25/19 21:38) Anaphylaxis Home Medications: Buspirone HCl [Buspar] 10 mg PO BID PRN 08/15/16 Trazodone [Desyrel*] 150 mg PO BEDTIME 08/15/16 Aspirin 81 mg PO DAILY 08/03/17 Citalopram Hydrobromide [Citalopram HBr] 20 mg PO DAILY 08/03/17 Clopidogrel Bisulfate [Plavix*] 75 mg PO DAILY 08/03/17 carvediloL [Carvedilol] 3.125 mg PO BID 08/03/17 Ferrous Sulfate [Ferrous Sulfate*] 325 mg PO DAILY 02/15/18 Furosemide [Lasix*] 20 mg PO DAILY PRN 02/15/18 Pantoprazole [Protonix Tab*] 40 mg PO DAILY 02/15/18 Levothyroxine Sodium 1 tab PO DAILY 10/25/19 Pravastatin Sodium 1 tab PO DAILY 10/25/19 Sacubitril/Valsartan [Entresto 24 mg-26 mg Tablet] 1 tab PO DAILY 10/25/19 sulfaSALAzine [Sulfasalazine] 1 tab PO BID 10/25/19 - Past Medical/Surgical History Has patient received pneumonia vaccine in the past: Yes Diabetic: No -: Coronary artery disease, stent x1 -: Internal carotid defibrillator/pacemaker -: COPD -: Hypertension -: Hyperlipidemia -: Depression with anxiety -: Grave's disease -: Peripheral vascular disease -: diverticulosis -: Internal carotid defibrillator -: Cardiac stent -: cholecystectomy -: hysterectomy -: left hip sx -: right ankle sx -: right wrist sx -: left shoulder skin cancer removed Psychosocial/ Personal History: She is , she has 1 child, she does not work. - Family History Mother Medical History: Cancer, Other (see notes) Notes: dementia Father Medical History: Heart disease, Liver disease, Other (see notes) Notes: liver CA - Social History Smoking Status: Former smoker Alcohol use: No CD- Drugs: No Caffeine use: Yes Place of Residence: Home Review of Systems 10-point ROS is otherwise unremarkable Physical Examination - Vital Signs Temperature: 97.6 F Blood Pressure: 100/50 Pulse: 82 Respirations: 18 Pulse Ox (%): 95 - Physical Exam General: Alert, In no apparent distress, Oriented x3 HEENT: Atraumatic, PERRLA, Mucous membr. moist/pink, EOMI, Sclerae nonicteric Neck: Supple, 2+ carotid pulse no bruit, No LAD, Without JVD or thyroid abnormality Respiratory: Clear to auscultation bilaterally, Normal air movement Cardiovascular: Regular rate/rhythm, Normal S1 S2, No murmurs Gastrointestinal: Normal bowel sounds, Soft and benign, Non-distended, No tenderness Musculoskeletal: No clubbing, No swelling, No tenderness Integumentary: No rashes Neurological: Normal gait, Normal speech, Normal strength at 5/5 x4 extr, Normal tone, Sensation intact, Cranial nerves 3-12 intact, Normal affect Lymphatics: No axilla or inguinal lymphadenopathy - Studies Laboratory Data (last 24 hrs) 10/25/19 18:30: WBC 4.8, Hgb 10.9 L, Hct 34.4 L, Plt Count 271 10/25/19 17:40: Sodium 139, Potassium 4.1, BUN 14, Creatinine 0.94, Glucose 98, Magnesium 2.2, Total Bilirubin 0.4, AST 77 H, ALT 22, Alkaline Phosphatase 54 Assessment & Plan - Problems (Diagnosis) (1) Chest pain, rule out acute myocardial infarction Current Visit: No Status: Acute (2) History of coronary artery disease Current Visit: No Status: Acute (3) History of implantable cardioverter-defibrillator (ICD) placement Current Visit: No Status: Chronic (4) Hyperlipidemia Onset Date: 08/16/16 Current Visit: No Status: Chronic Qualifiers: (5) Hypertension Onset Date: 08/16/16 Current Visit: No Status: Chronic Qualifiers: (6) Hypothyroidism Onset Date: 08/16/16 Current Visit: No Status: Chronic Qualifiers: - Plan 1. Serial troponins and EKG 2. Cardiology consultation 3. Patient follows up at [facility] and has had significant cardiac workup in the last year. If serial troponins are negative. Possible discharge with outpatient follow-up. 4. Anti-platelet therapy, anti coagulation, beta-reena, statin, and O2 as needed 5. IV morphine for pain 6. Nitro p.r.n. Discharge Plan: Home Plan to discharge in: 24 Hours - Advance Directives Does patient have a Living Will: No Does patient have a Durable POA for Healthcare: No - Code Status/Comfort Care Code Status Assessed: Yes Code Status: Full Code Critical Care: No Time Spent Managing PTS Care (In Minutes): 45
[2019-10-26] MEDS ORDERED: ASPIRIN EC 81 MG TAB PO SCH (09:00)
[2019-10-26] MEDS ORDERED: ENOXAPARIN 40 MG/0.4 ML SQ SCH (09:00)
[2019-10-26 10:07] VITALS: O2SAT 96
--- NOTE | 2019-10-26 10:25 | CON ---
Date of Consultation: 10/26/2019 The patient was admitted to Dr. Pizarro on 10/25/2019. Reason For Consultation: Chest pain. History Of Present Illness: Ms. Tripp is a 69-year-old white woman. She has a very complicated past cardiac history. She has a history of coronary artery disease status post stent. She has a history of chronic systolic congestive heart failure, status post pacemaker and AICD. She has history of hy pertension, asthma, and depression. She is a do not resuscitate. She used to see Dr. Marquis, but n ot now she sees Dr. Morfin, who referred her to the congestive heart failure team at [facility]. Barby pearl is looking to have an appointment with him coming up in the near future. She has an atypical chest pain over the left upper shoulder over the defibrillator site that radiates to the left neck and to the left arm that has been continuous for about a day and a half without any nausea, vomiting, diapho resis, PND, orthopnea, pedal edema, palpitations, or syncope. Past Medical History: As stated above. Allergies: SHE IS ALLERGIC TO SULFA. Review of Systems: Negative. Social History: Negative. Family History: Negative. Medications: Include aspirin, Synthroid, Protonix, BuSpar, citalopram, Plavix, Lasix, Entresto, Core g and sulfasalazine. Physical Examination: General: She was very pleasant in no acute distress. Vital Signs: Stable. Afebrile. Paced rhythm. HEENT: Negative. Neck: Supple. No bruit. Chest: Clear. Cardiac: Exam revealed a paced rhythm. No murmurs, gallops, or rubs. Abdomen: Benign. Extremities: Revealed no clubbing, cyanosis, or edema. Skin: Dry and intact. Psychologic: Psychologically, she was normal. Impression And Plan: 1.Atypical chest pain. 2.History of coronary artery disease, status post stents in the past. 3.Congestive heart failure, status post AICD and pacemaker. This is chronic systolic. 4.Hypertension, well controlled. 5.Asthma. 6.Gastroesophageal reflux disease. 7.Hypothyroidism. Ms Tripp's symptoms are definitely atypical, they last for an hour and a half. They are worse on pal pation. It sounds more musculoskeletal or maybe a cervical spine issue. She has an echocardiogram t hat is pending for tomorrow. She is a do not resuscitate. She has an appointment coming up with the CHF team in [place]. She prefers to stay in the hospital one more day. We will check her echo to kory and make further decisions. I do not recommend any stress testing at this point. She prefers invasive workup to be done in [place] if she needs to. We will continue to follow her. SPENCER/NADYA Voice ID: [id number] Report ID: [id number]
[2019-10-26 10:29] LABS: Anisocytosis 1+; Blood Morphology Comment NOTED (NOT SEEN); Hypochromasia 1+; Ovalocytes 1+; Platelet Estimate ADEQ
--- NOTE | 2019-10-26 12:53 | P.DS ---
Admission Date: 10/25/19 Discharge Date: 10/26/19 Disposition: ROUTINE DISCHARGE Reason for Admission: Chest pain rule out acute coronary syndrome Brief History of Present Illness: History of Present Illness: Patient is a 69-year-old female came to the hospital with chest discomfort. Pain was mainly in the sternal region. The pain went down her left arm to her left upper extremity fingers. The pain also went up the left side of the neck. She denies having shortness of breath or diaphoresis. She Has a significant history of coronary artery disease and follows up at [facility] at the Heart failure Clinic. She has an implantable defibrillator. She is also on Entresto. She will be admitted to the hospital for further evaluation to be ruled out for acute coronary syndrome. She does have multiple risk factors so will have Cardiology consultation placed as well. Hospital Course: Patient with extensive cardiac history and followed with the [facility] CHF Clinic admitted for persistent left-sided chest pain. On admission she did not have any EKG changes. She was evaluated by Cardiology and felt to have musculoskeletal in origin. Pain n continued to persist despite nitroglycerin and aspirin.. No further intervention was recommended by Cardiology. She was ruled out with negative sets of cardiac enzymes. Patient will be discharged home today on Nsaids Vital Signs/Physical Exam: Temp Pulse Resp BP Pulse Ox 97.6 F 82 18 100/50 L 95 10/26/19 08:53 10/26/19 08:53 10/26/19 08:53 10/26/19 08:53 10/26/19 08:53 General: Alert, In no apparent distress, Oriented x3 HEENT: Atraumatic, Normocephalic, PERRLA Neck: 2+ carotid pulse no bruit, JVD not distended, No Thyromegaly Respiratory: Clear to auscultation bilaterally, Normal air movement, Other ( anterior chest wall tenderness) Cardiovascular: Normal pulses, Normal S1 S2 Gastrointestinal: Normal bowel sounds, Soft and benign, Non-distended Musculoskeletal: No clubbing, No swelling Neurological: Normal gait, Normal speech, Normal strength at 5/5 x4 extr Laboratory Data at Discharge: WBC 3.4 K/uL (4.3-10.9) L D 10/26/19 05:23 Hgb 10.4 g/dL (12.0-15.0) L 10/26/19 05:23 Hct 32.8 % (36.0-45.0) L 10/26/19 05:23 Plt Count 257 K/uL (152-406) 10/26/19 05:23 PT 11.8 SECONDS (9.5-12.5) 10/25/19 20:54 INR 1.00 10/25/19 20:54 Sodium 144 mmol/L (136-145) 10/26/19 05:23 Potassium 4.4 mmol/L (3.5-5.1) 10/26/19 05:23 BUN 17 mg/dL (7-18) 10/26/19 05:23 Creatinine 1.12 mg/dL (0.55-1.3) 10/26/19 05:23 Glucose 86 mg/dL (74-106) 10/26/19 05:23 Magnesium 2.2 mg/dL (1.8-2.4) 10/25/19 17:40 Total Bilirubin 0.4 mg/dL (0.2-1.0) 10/25/19 17:40 AST 77 U/L (15-37) H 10/25/19 17:40 ALT 22 U/L (12-78) 10/25/19 17:40 Alkaline Phosphatase 54 U/L (45-117) 10/25/19 17:40 Troponin I < 0.02 ng/mL (0.0-0.045) 10/26/19 11:57 Triglycerides 63 mg/dL (<150) 10/26/19 05:23 Cholesterol 207 mg/dL (<200) H 10/26/19 05:23 HDL Cholesterol 73 mg/dL (40-60) H 10/26/19 05:23 Cholesterol/HDL Ratio 2.84 10/26/19 05:23 Home Medications: Buspirone HCl [Buspar] 10 mg PO BID PRN 08/15/16 Trazodone [Desyrel*] 150 mg PO BEDTIME 08/15/16 Aspirin 81 mg PO DAILY 08/03/17 Citalopram Hydrobromide [Citalopram HBr] 20 mg PO DAILY 08/03/17 Clopidogrel Bisulfate [Plavix*] 75 mg PO DAILY 08/03/17 carvediloL [Carvedilol] 3.125 mg PO BID 11/10/17 Ferrous Sulfate [Ferrous Sulfate*] 325 mg PO DAILY 02/15/18 Furosemide [Lasix*] 20 mg PO DAILY PRN 02/15/18 Pantoprazole [Protonix Tab*] 40 mg PO DAILY 02/15/18 Levothyroxine Sodium 1 tab PO DAILY 10/25/19 Pravastatin Sodium 1 tab PO DAILY 10/25/19 Sacubitril/Valsartan [Entresto 24 mg-26 mg Tablet] 1 tab PO DAILY 10/25/19 sulfaSALAzine [Sulfasalazine] 1 tab PO BID 10/25/19 Famotidine [Pepcid] 20 mg PO BID #14 tablet 10/26/19 Naproxen [EC-Naprosyn] 500 mg PO TID #15 tablet. 10/26/19 New Medications: Famotidine [Pepcid] 20 mg PO BID #14 tablet Naproxen [EC-Naprosyn] 500 mg PO TID #15 tablet. Patient Discharge Instructions: follow with your relay worker in 3-5 days Diet: Low sodium Activity: Ad zachary Time spent managing pt's care (in minutes): 30
[2019-10-26 13:21] VITALS: BP 99/54; TEMP 97.4
--- NOTE | 2019-10-27 08:26 | EKG ---
Test Date: 2019-10-25 Test Time: 16:53:17 Form Tamper: SAUL MEASUREMENT RESULTS: Intervals: Rate: 75 TX: QRSD: 156 QT: 482 QTc: 538 [place]: P: TX: QRS: 120 T: -64 INTERPRETIVE STATEMENTS: Atrial-Ventricular Dual-Paced rhythm Occasional PVC s Abnormal ECG Compared to ECG 03/24/2019 14:25:06 Right bundle-branch block now present PVC s are now present Electronically Signed On 10-27-19 08:26:17 NURSE PRACTICAL by Ruben Rosa
== END 2019-10-26 13:46 | disposition home or self-care (01) ==
LOC: ER 16:50 → ERHOLD 19:59 → 2ND 21:02
PROVIDERS: ADMIT Hospitalist; ATTEND Hospitalist
DX: R07.89 Other chest pain (principal); I25.10 Atherosclerotic heart disease of native coronary artery without angina pectoris; I11.0 Hypertensive heart disease with heart failure; I50.22 Chronic systolic (congestive) heart failure; F32.9 Major depressive disorder, single episode, unspecified; J45.909 Unspecified asthma, uncomplicated; K21.9 Gastro-esophageal reflux disease without esophagitis; E03.9 Hypothyroidism, unspecified; Z95.810 Presence of automatic (implantable) cardiac defibrillator; Z95.5 Presence of coronary angioplasty implant and graft; Z66 Do not resuscitate; Z88.2 Allergy status to sulfonamides
CPT/HCPCS: 96361; 93005; 85025 ×2; 80048 ×2; 36415; 83735; 85610; 80061; 80076; 84484 ×3; 83880; 71275; 74175; 71045; 96375; 96372; 96374; 99285; Q9967; J1650 ×3; J3010; J7040; J2405; G0378 ×3

== ENCOUNTER 2020-07-09 14:36 | Emergency (ER) | payer OTHER ==
--- OUTSIDE RECORDS SUMMARY | 2020-07-09 14:39 | XMS REPORT | Summary of Care ---
:1950 Author Organization [facility] Address [address] [place] [id number] Care Team Providers Name Role Phone Onel Mcmullen Emilio Primary Care Provider Reason for Visit Reason Comments LAB WORK Auth/Cert Status Reason Specialty Diagnoses / Procedures Referred By Akbar ontact Referred To Contact Phlebotomy Diagnoses Chronic systolic heart failure Adc Pob Lab Draw Procedures bmp Professional Office Building [address] , [address] [place] [address] Phone: Fax: Encounter Details Date Type Department Care Team Description 05/03/2020 Hybrid Derivatives Trader Visit [facility] Rose Jack Chelly de la cruzsapphire, TRANSVERSE ABDOMINAL MUSCLE SURGEON [address] [place] [address] Chronic systolic Professional Office Pob, 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 heart failure Building Phlebotomy Lab Professional Office Building [address] , [address] [place] [address] Allergies Active Allergy Reactions Severity Noted Date Comments Sulfa (Sulfonamide Unknown - See comments 08/31/2016 Does not remember it Antibiotics) has been many y ears ago documented as of this encounter (statuses as of 05/03/2020) Medications Medication Sig Dispensed Refills Start Date End Date Status traZODone (DESYREL) 150 at bedtime. 0 06/13/2016 Active mg tablet levothyroxine 0 07/17/2016 Activ e (SYNTHROID) 100 mcg tablet aspirin 81 mg chewable Take 81 mg by 0 Active tablet mouth daily. pantoprazole 40 mg EC Take 40 mg by 0 Active tablet mouth daily. citalopram 20 mg tablet Take 20 mg by 0 Active mouth daily. busPIRone 10 mg tablet Take 10 mg by 0 Active mouth as needed. pravastatin 40 mg Take 40 mg by 0 04/01/2019 Active tablet mouth daily. calcitONIN, salmon, 200 Use 2 Sprays in 0 05/02/2019 Active unit/actuation nasal each nostril spray daily. sulfaSALAzine 500 mg Take 1,000 mg by 0 02/20/2019 Active tablet mouth daily. albuterol sulfate Inhale. 0 Ac tive (PROAIR HFA INHALE) carvediloL 3.125 mg Take 1 tablet by 180 tablet 3 10/31/2019 Active tablet mouth 2 (two) times daily with meals. ENTRESTO 49-51 mg TAKE 1 TABLET 180 tablet 1 01/22/2020 Active tabletIndications: TWICE DAILY Chronic systolic heart failure FUROSEMIDE 20 mg TAKE 1 TABLET BY 180 tablet 1 01/22/2020 Active tabletIndications: MOUTH EVERY Chronic systolic heart MORNING AND failure EVENING. 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 documented as of this encounter Last Filed Vital Signs Not on filedocumented in this encounter Nursing Notes Shirley Meadows - 05/03/2020 2:15 PM CDT Venipuncture collection performed by clean technique on the right anticubitus. Total of 1 attempts were made. Slight pressure and a bandage/dressing were applied to the site(s). The patient experiencedno complications. The following specimens were processed according to instructions and sent to [facility] laboratories per lab order on : LT BLUE 1 SST RED 1 LAV PPT DK GREEN (LiHep) DK GREEN (SodH) EVANS DK BLUE (K2) DK BLUE (S) ACD Blood Culture NIPT/NTD documented in this encounter Plan of Treatment Date Type Specialty Care Team Description 06/18/2020 Nurse Visit Cardiology Visit, Adc Nurse Name Type Priority Associated Diagnoses Date/Ti me BASIC METABOLIC PANEL LAB Routine Chronic systolic he art 05/03/2020 2:23 PM CDT (NA, K, CL, CO2, failure GLUCOSE, BUN, CREATININE, CA) MAGNESIUM LAB Routine Chronic systolic heart 05/03 2:23 PM CDT failure CBC WITH DIFF LAB Routine Chronic systolic heart 04/24 2:23 PM CDT failure Health Maintenance Due Date Last Done Comments HEPATITIS C (HCV) SCREEN 1950 DTaP,Tdap,and Td Vaccines (1 - Tdap) 02/04/1968 Breast Cancer Screening (MAMMOGRAM) 1989 COLON CANCER SCREENING ANNUAL FIT/FOBT 1999 COLON CANCER SCREENING FIT DNA EVERY 3 YEARS 1999 COLON CANCER SCREENING SIGMOIDOSCOPY EVERY 5 YEARS 1999 COLONOSCOPY 1999 Colorectal Cancer Screening 1999 Zoster Recombinant Vaccine (SHINGRIX) (1 of 2) 1999 Medicare Wellness Visit 2014 Osteoporosis Screening 2014 PNEUMOCOCCAL VACCINES 65+ (1 of 1 - PPSV23) 2014 INFLUENZA VACCINE (#1) 2020 Depression Screening 11/30/2020 12/01/2019 documented as of this encounter Results Not on filedocumented in this encounter Visit Diagnoses Diagnosis Chronic systolic heart failure documented in this encounter Insurance Payer Benefit Plan / Subscriber ID Effective Dates Phone Addre ss Type Group MEDICARE MEDICARE PART [id number] 2014-Rd [phone] [address] Medicare [address] & [address] t 2 [id number] KRISTINE WALLER [id number] documented as of this encounter
--- OUTSIDE RECORDS SUMMARY | 2020-07-09 14:39 | XMS REPORT | Summary of Care ---
:1950 Author Organization [facility] Address [address] [place] [id number] Care Team Providers Name Role Phone Benedict Onel Jhaveri Primary Care Provider Reason for Visit Reason Comments Follow-up 3 month Auth/Cert Status Reason Specialty Diagnoses / Procedures Referred By Akbar milligan Referred To Contact Phlebotomy Diagnoses Chronic systolic heart failure Adc Pob Lab Draw Procedures [facility] Professional Office Building [address] [place] [address] , [address] [place] [address] Phone: Fax: Encounter Details Date Type Department Care Team Description 05/03/2020 Office Visit [facility] Chidi Morfin M D [address] [facility] [address] [place] [address] Chronic systolic heart failure (Primary Dx); Cardiology- [facility], Adc Heart Failure Cardio Essential hypertension; [address] [place] [address] Hyperlipide ia, unspecified hyperlipidemia type; Drive, [address] CAD S/P percutaneous coronar y angioplasty; [place], [place] Bradycardia [id number] Allergies Active Allergy Reactions Severity Noted Date [...] heart failure 12/17/2017 Coronary artery disease involving [place] heart without angina pectoris, 12/17/2017 unspecified vessel [...] of this encounter Last Filed Vital Signs Vital Sign Reading Time Taken Comments Blood Pressure 119/82 05/03/2020 1:12 PM CDT Pulse 98 05/03/2020 1:12 PM CDT Temperature - - Respiratory Rate - - Oxygen Saturation 97% 05/03/2020 1:12 PM CDT Inhaled Oxygen Concentration - - Weight 92.6 kg (204 lb 1.6 oz) 05/03/2020 1:12 PM CDT Height 170.2 cm (5' 7") 05/03/2020 1:12 PM CDT Body Mass Index 31.97 05/03/2020 1:12 PM CDT documented in this encounter Progress Notes Jack Rose, CHRISSY - 05/03/2020 1:00 PM CDT HEART FAILURE CLINIC NOTE Reason for Referral/Presenting Complaint: Follow up History of Present Illness: Maryan Tripp is [id number] old female with history of chronic HFrEF (ICM, EF 35- 40% per echo 10/2019, NYHA II, Stage C).Slight increase in EF 30-35% in April 2018. PMH includes HTN, HLD, obesity, syncope/bradycardia s/pPM in 2007 (with upgrade to DIRECTOR MATERNAL CHILD-D in 11/2015), and CAD s/p PCI (p-mLAD) 2014. She presents for a routine follow up. Pt denies any acute events or hospitalizations since [place]. Pt feeling well today. Denies chest pain, palpitations, SOB, CASEY, PND, orthopnea, dizziness, LE edema, orweight gain. Exercise tolerance limited due to OA. Compliant with medications and diet. Of note, patient relocating to [place], [place] in two weeks and will establish care with HF fur liner when settled. Past Medical History: Past Medical History: Diagnosis Date Anxiety Depression History of total left hip arthroplasty 08/31/2016 Hyperlipidemia Hypertension Thyroid disease Current Medications: Current Outpatient Medications Medication Sig Dispense Refill CLOPIDOGREL 75 mg tablet TAKE 1 TABLET EVERY DAY 90 tablet 2 ENTRESTO 49-51 mg tablet TAKE 1 TABLET TWICE DAILY 180 tablet 1 FUROSEMIDE 20 mg tablet TAKE 1 TABLET BY MOUTH EVERY MORNING AND EVENING. 180 tablet 1 carvediloL 3.125 mg tablet Take 1 tablet by mouth 2 (two) times daily with meals. 180 tablet 3 albuterol sulfate (PROAIR HFA INHALE) Inhale. calcitONIN, salmon, 200 unit/actuation nasal spray Use 2 Sprays in each nostril daily. pravastatin 40 mg tablet Take 40 mg by mouth daily. sulfaSALAzine 500 mg tablet Take 1,000 mg by mouth daily. busPIRone 10 mg tablet Take 10 mg by mouth as needed. citalopram 20 mg tablet Take 20 mg by mouth daily. pantoprazole 40 mg EC tablet Take 40 mg by mouth daily. aspirin 81 mg chewable tablet Take 81 mg by mouth daily. levothyroxine (SYNTHROID) 100 mcg tablet traZODone (DESYREL) 150 mg tablet at bedtime. Current Facility-Administered Medications Medication Dose Route Frequency Last Rate Last Dose traMADOL (ULTRAM) tablet 50 mg 50 mg Oral Q4HPRN Allergies: Allergies Allergen Reactions Sulfa (Sulfonamide Antibiotics) Unknown - See comments Does not remember it has been many years ago Social History: Social History Socioeconomic History Marital status: Spouse name: Not on file Number of children: Not on file Years of education: Not on file Highest education level: Not on file Occupational History Not on file Social Needs Financial resource strain: Not on file Food insecurity Worry: Not on file Inability: Not on file Transportation needs Medical: Not on file Non-medical: Not on file Tobacco Use Smoking status: Never Smoker Smokeless tobacco: Never Used Substance and Sexual Activity Alcohol use: No Drug use: No Sexual activity: Never Lifestyle Physical activity Days per week: Not on file Minutes per session: Not on file Stress: Not on file Relationships Social connections Talks on phone: Not on file Gets together: Not on file Attends tenriism service: Not on file Active member of club or organization: Not on file Attends meetings of clubs or organizations: Not on file Relationship status: Not on file Intimate partner violence Fear of current or ex partner: Not on file Emotionally abused: Not on file Physically abused: Not on file Forced sexual activity: Not on file Other Topics Concern Not on file Social History Narrative Not on file Review of Systems: (-)=Negative,(+)=Positive General: (-) weight change, (-) fatigue, (-) weakness, (-) fever, (-) chills. Heme: (-) easy bruising/ bleeding, (-) anemia. Endo: (-) heat/cold intolerance, (-) excessive sweating, Resp: (-) shortness of breath, (-) wheezing, (-) cough. Cardio: (-) chest pain, (-) palpitations, (-) syncope, (-) CASEY, (-) orthopnea, (-) PND GI: (-) heartburn (-) melena/hematechezia : (-) hematuria, (-) dysuria YOVANA: (-) muscle weakness, (-) joint pain Vascular: (-) claudication, (-) edema Psychiatric: (-) depression, (-) anxiety, Physical Examination: BP 119/82 (BP Location: Right arm, Patient Position: Sitting, BP CUFF SIZE: Adult Medium) | Pulse 98 | Ht 5' 7" (1.702 m) | Wt 204 lb 1.6 oz (92.6 kg) | SpO2 97% | BMI 31.97 kg/m General: Well developed, well nourished, no acute distress. Alert and oriented x 4 (person, place, time and situation) HEENT: Normocephalic, atraumatic Neck: Supple, no lymphadenopathy, no JVD, no bruits Lungs: Clear to auscultation bilaterally. No wheezes, no rales, no rhonchi. Cardio: Distinct S1 and S2, RRR, No murmurs, rubs/ gallops. Abdomen: Soft, non-tender, non-distended, normo-active bowel sounds. : Not examined. Rectal: Not examined. Extremities: No clubbing, no cyanosis. No edema. Skin: No rashes. Neuro: No focal deficits. Labs: CBC BMP PT/INR WBC (10*3/L) Date Value 11/29/2019 3.11 (L) NA (mmol/L) Date Value 11/29/2019 139 No results found for: PT PLT (10*3/L) Date Value 11/29/2019 283 K (mmol/L) Date Value 11/29/2019 3.9 No results found for: PTINR HGB (g/dL) Date Value 11/29/2019 10.1 (L) BUN (mg/dL) Date Value 11/29/2019 14 HCT (%) Date Value 11/29/2019 33.9 (L) CREATININE (mg/dL) Date Value 11/29/2019 0.90 LIPID PROFILE GLUCOSE (mg/dL) Date Value 11/29/2019 99 CHOL (mg/dL) Date Value 11/04/2019 224 (H) TSH LDL CHOL (mg/dL) Date Value 11/04/2019 128 No results found for: TSH CARDIAC ENZYMES HDL (mg/dL) Date Value 11/04/2019 77 No results found for: CK TRIG (mg/dL) Date Value 11/04/2019 96 LFTs No results found for: CKMB AST(SGOT) (U/L) Date Value 11/04/2019 74 (H) No results found for: TROPNI ALTv (U/L) Date Value 11/04/2019 15 No results found for: BNP Echocardiogram: 11/20/2019 Left Ventricle The left ventricle is normal in size. There is normal left ventricular wall thickness. Left ventricular systolic function is moderately reduced. Ejection Fraction = 35-40%. Diastolic function is impaired relaxation. Left ventricular filling presure is normal. There are regional wall motion abnormalities as specified. There is mild to moderate septal hypokinesis. Thereis moderate to severe posterior wall hypokinesis. There is moderate inferior wall hypokinesis. Right Ventricle There is a pacemaker lead in the right ventricle. The right ventricle is mildly dilated. There is normal right ventricular wall thickness. The right ventricular systolic function is mildly reduced. Atria The left atrial size is normal. Right atrial size is normal. There is a catheter/pacemaker lead seenin the right atrium. Mitral Valve The mitral valve is normal. There is mild mitral regurgitation. Tricuspid Valve The tricuspid valve is normal. There is trace tricuspid regurgitation. Estimated RA pressure is 0-5 mmHg. Right ventricular systolic pressure is normal. Aortic Valve The aortic valve is normal. Pulmonic Valve The pulmonic valve is normal. There is trivial pulmonic insufficiency. Great Vessels The aortic root is normal size. Pericardium/Pleural There is no pericardial effusion. The pericardium appears normal. Interpretation Summary The study was technically adequate. The study was technically limited. Ejection Fraction = 35-40%. There are regional wall motion abnormalities as specified. Estimated RA pressure is 0-5 mmHg. Right ventricular systolic pressure is normal. [facility]: 02/2018 LEFT CORONARY ARTERY: Left Main Artery: Large, long, patent LAD: Large, proximal mild LI, the patent proximal to mid stent, mid to distal mild LI, distal vessel wraps around the apex. D1: Small D2: Small to medium size, ostial 40%, proximal 30%, then mild LI D3: Small Circumflex: Large, proximal mild LI, mid to distal vessel is of small caliber OM1: Large, proximal mild LI, then vessel bifurcates, first branch with 30-40% disease, then mild LI, second branch with mild LI OM2: Small RIGHT CORONARY ARTERY: DOMINANCE: Right Dominant RCA: Large, proximal mild LI, mid 10-20%, mid to distal mild LI PDA: Medium size, mild LI PLB: Large, mild LI LV FINDINGS: LV Normal EDP : 11 mmHg DIAGNOSTIC IMPRESSION: 1. Patent p-mLAD stent 2. Mild OM disease PLANS: 1. Aggressive medical management 2. Statin 3. Recommend CCB 4. Findings and plan discussed with patient and family Device Check: 03/19/20 Evaluation performed: Interrogation and programing multiple lead ICD Device: EzLike Mode: DDDR 70 bpm Battery: 16 months Atrial Lead: Sensin.8 mV Impedance: 342 Ohms Threshold: 0.625 V @ 0.4 ms Atrial pacin % Right Ventricular Lead: Sensin.0 mV Impedance: 532 Ohms Threshold: 0.625 V @ 0.4 ms [employer] pacing percentage: 97.7 % Shock Impedance: RV 42 Ohms Left Ventricular Lead: Impedance: 399 Ohms Threshold: 1.125 V @ 1.0 ms Zones: AT/AF: Monitor > 171 bpm VF > 188 bpm ATP before charging 30 J, 35 J X 5 FVT and VT: Off Arrhythmias: No sig arrhythmias noted. BiVP pacing percentage: 97.7 % optivol within normal limits. Recommendations: Normal functioning device. Follow up in 3 months. Assessment and Plan 1. Chronic HFrEF 35-40%, ICM, NYHAII, Stage C -Euvolemic on exam -Continue lasix 20 mg BID -Continue coreg 3.125 mg BID -Continue Entresto 49-51 mg BID -CBC, BMP, and mag today 2.HTN - 119/82in clinic. BP/HR well controlled at home - Continue Entresto 49-51 mg BID - Continue coreg 3.125 mg BID - Advised to keep daily vitals log 3.HLD -LDL 128 in October 2019 - Continue pravastatin 10 mg nightly 4. Bradycardia s/pPM 2007 (upgrade to DIRECTOR MATERNAL CHILD-D 11/2015) - HR 98 -Continue coreg 3.125 mg BID 5. CAD s/p PCI (p-mLAD) 2014 - Stable without chest pain - Continue ASA 81 mg daily - Continue Plavix 75 mg daily - Continue pravastatin 10 mg nightly - Continue Coreg 3.125 mg BID Follow up in clinic PRN. Education and Counseling Importance of medication compliance Daily weights/blood pressures Low salt and low cholesterol diet Symptom notification shortness of breath and weight gain Activity As tolerated Exercise As tolerated Plan discussed in detail and all issues addressed. Provided opportunity to answer questions. Patientverbalized understanding of treatment plan. This visit involved counseling and coordination of care that comprised more than 50% of the visit time. LAYNE Devries Heart Failure, Division of Cardiology documented in this encounter Plan of Treatment [...] systolic heart 04/24 2:23 PM CDT failure Name Type Priority Associated Diagnoses Order S chedule BASIC METABOLIC PANEL LAB Routine Chronic systolic he art Expected: 05/03/2020, (NA, K, CL, CO2, failure Expires: GLUCOSE, BUN, CREATININE, CA) MAGNESIUM LAB Routine Chronic systolic heart Expec minor: 05/03/2020, failure Expires: 2020 CBC WITH DIFF LAB Routine Chronic systolic heart Expe cted: 05/03/2020, failure Expires: 2020 Health Maintenance Due Date Last Done Comments [...] Visit Diagnoses Diagnosis Chronic systolic heart failure - Primary Essential hypertension Unspecified essential hypertension Hyperlipidemia, unspecified hyperlipidem ia type CAD S/P percutaneous coronary angioplast y Coronary atherosclerosis of [place] coron andrew artery Bradycardia Other specified cardiac dysrhythmias documented in this encounter Insurance Payer Benefit Plan / Subscriber ID Effective Dates Phone Addre ss Type Group MEDICARE MEDICARE PART [id number] 2014-Rd [phone] Medicare A & B t 2 [id number] KRISTINE WALLER [phone] documented as of this encounter
--- OUTSIDE RECORDS SUMMARY | 2020-07-09 14:39 | XMS REPORT | Continuity of Care Document ---
:[address] [facility] t Address [address] [place] [address] Care Team Providers Name Role Phone Fac, Heart Failure Cardio Attending Clinician Unavailable Problems Condition Condition Condition Status Onset Resolution Last Treating Co mments Source Name Details Category Date Date Treatment Clinician Date Diverticul Diverticul Diagnosis Active [facility] osis large osis large [place] kes - intestine intestine Juanjose jonathan w/o w/o l perforatio perforatio Ou tpati n or n or ent abscess abscess Clinics w/o w/o bleeding bleeding Head ache Head ache Diagnosis [facility] Benign Benign Diagnosis Active [facility] essential essential Luke [facility] - HTN HTN [facility] Outpati ent Clinics Atheroscle Atheroscle Diagnosis Active [facility] rosis of rosis of [facility] - coronary coronary Memori a artery of artery of l [place] [facility] heart heart ent Clinics Depression Depression Diagnosis Active [facility] with with [facility] - anxiety anxiety [facility] Out[facility] ent Clinics Insomnia Insomnia Diagnosis Active [facility] Hypothyroi Hypothyroi Problem Active [facility] dism dism [facility] Congestive Congestive Problem Active [facility] heart heart [facility] - failure, failure, Memori a unspecifie unspecifie l d HF d HF Outpati chronicity chronicity en t , , Clinics unspecifie unspecifie d heart d heart failure failure type type Chronic Chronic Diagnosis Active [facility] obstructiv obstructiv [place] [facility] - e e Memoria pulmonary pulmonary l disease, disease, Outpat i unspecifie unspecifie en t d COPD d COPD Clinics type type Stented Stented Problem Active [facility] coronary coronary [facility] - artery artery Memoria l [facility] Clin[facility] Iron Iron Diagnosis Active [facility] deficiency deficiency [place] kes - anemia, anemia, Memoria unspecifie unspecifie l d iron d iron Outpati deficiency deficiency en t anemia anemia Clinics type type Femur Femur Problem Active [facility] fracture fracture [facility] Internal Internal Problem Active [facility] hemorrhoid hemorrhoid [place] [facility] - s s [facility] Biventricu Biventricu Problem Active [facility] lar ICD lar ICD [facility] - (implantab (implantab Me moria le le l cardiovert cardiovert Ou tpati er-defibri er-defibri en t llator) in llator) in Cl inics place place Coronary Coronary Diagnosis Active [facility] artery artery [facility] - disease disease Memoria involving involving l [place] [facility] coronary coronary ent artery of artery of Clin ics [place] heart with heart with angina angina pectoris pectoris Bradycardi Bradycardi Problem Active [facility] TIA TIA Problem Active [facility] (transient (transient [place] kes - ischemic ischemic Memori a attack) attack) l [facility] Hypocalcem Hypocalcem Problem Active [facility] Myocardial Myocardial Problem Active [facility] infarction infarction [place] kes - [facility]ics Vasovagal Vasovagal Problem Active [facility] syncope syncope [facility] Peripheral Peripheral Diagnosis Active [facility] vascular vascular [facility] - disease disease [facility] Gastritis Gastritis Problem Active [facility] Allergic Allergic Problem Active [facility] rhinitis rhinitis [facility] Dizziness Dizziness Problem Active [facility] Age-relate Age-relate Problem Active [facility] - osteoporos osteoporos Me moria is without is without l current current [facility] pathologic pathologic en t al al Clinics fracture fracture Chronic Chronic Problem Active [facility] systolic systolic [facility] - congestive congestive Me moria heart heart l failure failure [facility] GERD GERD Problem Active [facility] without without [facility] - esophagiti esophagiti Me moria s s l [facility] ent Clinics CKD CKD Diagnosis Active [facility] (chronic (chronic [facility] - kidney kidney Memoria disease) disease) l stage 3, stage 3, Outpat i GFR 30-59 GFR 30-59 ent ml/min ml/min Clinics Mixed Mixed Problem Active [facility] hyperlipid hyperlipid [place] kes - emia emia Memoria l [facility] ent Clinics History of History of Diagnosis Active [facility] fall fall [facility] Allergies, Adverse Reactions, Alerts This patient has no known allergies or adverse reactions. Medications Ordered Filled Start Stop Current Ordering Indication Dosage Frequency Signature Comments Components Source Medication Medication Date Date Medication? Clinician (SIG) Name Name Plavix Plavix Yes Onel 1 tablet [facility] Citalopram Citalopram Yes Onel [address] [facility] [address] Hydrobromid Hydrobromid [facility] e e [facility]ics Symbicort Symbicort Yes Onel [address] [facility] [address] [facility] Levothyroxi Levothyroxi Yes Onel [address] [facility] [facility] ne Sodium ne Sodium Mcmullen on an [place] es - empty Memoria stomach in l [facility] Ferrous Ferrous Yes Onel [address] [facility] [address] Sulfate Sulfate [facility] ProAir HFA ProAir HFA Yes Onel [address] [facility] Mcmullen needed [facility] BusPIRone BusPIRone Yes Onel [address] [facility] [address] HCl HCl [facility] Vitamin D3 Vitamin D3 Yes Onel [address] [facility] Protonix Protonix Yes Onel [address] [facility] Trazodone Trazodone Yes Onel [address] [facility] [address] HCl HCl Mc[facility]ullen at bedtime [facility] Trazodone Trazodone Yes Onel take [address] HCl HCl Mcmullen tablet one [facility] - time daily Memoria at bedtime l [facility] Clinics Coreg Coreg Yes Onel not [facility] defined [facility] Furosemide Furosemide Yes Onel [address] [facility] Aspir-81 Aspir-81 Yes Onel [address] [facility] Pravastatin Pravastatin Yes Onel [address] [facility] [address] Sodium Sodium [facility] Sulfasalazi Sulfasalazi Yes Onel [address] [facility] [address] ne ne [facility]ullen [facility]ics Entresto Entresto Yes Onel [address] [facility] Pantoprazol Pantoprazol Yes Onel [address] [facility] e Sodium e Sodium [facility]ullen [facility] Procedures This patient has no known procedures. Encounters Start End Encounter Admission Attending Care Care Encounter Source Date/Time Date/Time Type Type Clinicians Facility Department ID 2020-05-14 2020-05-14 [facility] [id number] [address] 09:30:00 09:30:00 [employer] [facility] Outpat[facility] ent Clinics 2020-05-03 2020-05-03 Office Fac, [facility] [id number] 12:54:43 13:43:46 Visit Heart Register [id number] Failure [place] [id number] Cardio Professio [id number] nal 059 [facility] 2020-02-25 2020-02-25 [facility] [id number] [address] 08:15:00 08:15:00 [employer] [facility] Medicine Outpati ent Clinics 2020-02-25 2020-02-25 [facility] [id number] [address] 08:00:00 08:00:00 MD[employer] [facility] Medicine Outpati ent Clinics 2020-01-05 2020-01-05 [facility] [id number] [address] 15:23:00 15:23:00 MD[employer]ME [employer] [facility] Medicine Outpati ent Clinics 2019-10-06 2019-10-06 [facility] [id number] 15:39:00 15:39:[address] [place] [address] [facility] [place] - Drive [facility] Medicine Outpati ent Clinics 2019-08-07 2019-08-07 [facility] [id number] 15:15:00 15:15:[address] [place] [address] Luke [facility] - Drive [facility] l Medicine Outpati ent Clinics 2019-07-16 2019-07-16 [facility] [id number] 13:31:00 13:31:[address] [place] [address] [facility] [place] - Drive [facility] Medicine l Medicine Outpati ent Clinics 2019-07-10 2019-07-10 [facility] [id number] 11:31:00 11:31:00 [place] [address] Luke [facility] - Drive [facility] l Medicine Outpati ent Clinics 2019-06-16 2019-06-16 [facility] [id number] 13:45:00 13:45:[address] [place] [address] [facility] [place] - Drive [facility] Medicine Outpati ent Clinics 2019-06-06 2019-06-06 [facility] [id number] 11:58:00 11:58:00 [place] [address] [facility] - Drive [facility] Medicine Outpati ent Clinics 2019-06-04 2019-06-04 [facility] [id number] 11:13:00 11:13:00 [place] [address] Luke [place] - Drive [facility] Medicine Outpati ent Clinics 2019-06-03 2019-06-03 [facility] [id number] 11:31:00 11:31:00 [place] [address] Luke s - Drive [facility] Medicine Outpati ent Clinics 2019-04-01 2019-04-01 [facility] [id number] 13:00:00 13:00:00 [place] [address] Luke s - Drive [facility] Medicine Outpati ent Clinics 2018-12-25 2018-12-25 [facility] [id number] 15:45:00 15:45:[address] [place] [address] Luke s - Drive [facility] Medicine Outpati ent Clinics Results This patient has no known results.
--- OUTSIDE RECORDS SUMMARY | 2020-07-09 14:40 | XMS REPORT | Continuity of Care Document ---
:1950 Author Organization [facility] Address [address] [place] [address] Care Team Providers Name Role Phone ALVIN DO CHAHALH Primary Care Physician Allergies, Adverse Reactions, Alerts No allergy information available. Medications No known medications. Problems No problem information available. Procedures No procedure information available. Relevant Diagnostic Tests and/or Laboratory Data Laboratory Results Test Date/Time Result Interpretation Reference Result Perfo rming Range Comment Site Blood Urea May 18, 13 8-23 [facility], 104 Nitrogen 2019 1:01pm [facility] [address] Creatinine May 18, 0.9 0.50-0.90 [facility], 104 2019 1:01pm [facility] [address] Glomerular May 18, > 60.00 GFR RESULTS [facility] , 2019 1:01pm ARE REPORTED [facility] [address] Rate Calc IN mL/min/1.73m 2.Normal GFR: >60mL/minMod erately decreased GFR: 30-59 mL/minSevere ly decreased GFR: 15-29 mL/minKidney Failure (or Dialysis): <15 mL/minThe calculated eGFR is not valid for patients younger than 18 years or older than 75 years. Calcium Level May 18, 9.3 8.8-10.2 [facility], 104 2019 1:01pm [facility] [address] Health Concerns Health Concerns may be documented in an alternate section. Encounters Encounter Location(s) Arrival/Admit Date Discharge/Depart Date Provider(s) Registered Green May 18, 2020 ALVIN [facility] 8:00am DO Ctr Assessments No Assessments Information Available Functional Status No Functional Status information available Goals Goals may be documented in an alternate section. Immunizations No Immunization Information Available Mental Status No Mental Status Information Available Medical Equipment No Medical Equipment Information available Insurance Providers Guarantor Maryan Tripp Address [address] [facility] [address] Contact Info. Home Phone: Payer Policy Id Coverage Id Subscriber's Subscriber Id Effective E xpiration Name Date Date Medicare [id number] Maryan Tripp [id number] Social History Assigned Sex Female Vital Signs Vital Reading Result Collection Date/Time
--- OUTSIDE RECORDS SUMMARY | 2020-07-09 14:40 | XMS REPORT | Summary of Care ---
:1950 Author Organization [facility] Address [address] [place] [address] Care Team Providers Name Role Phone Benedict Onel Jhaveri Primary Care Provider Reason for Visit Reason Comments Follow-up 3 month Auth/Cert Status Reason Specialty Diagnoses / Procedures Referred By Akbar milligan Referred To Contact Phlebotomy Diagnoses Chronic systolic heart failure Adc Pob Lab Draw Procedures [facility] Professional Office Building [address] [place] [address] , [address] [place] [address] Phone: Fax: Encounter Details Date Type Department Care Team Description 05/03/2020 Office Visit [facility] Chidi Morfin M D [address] [facility] [address] [place] [address] Chronic systolic heart failure (Primary Dx); Cardiology- [place] [facility], Adc Heart Failure Cardio Essential hypertension; [address] [place] [address] Hyperlipide ia, unspecified hyperlipidemia type; Drive, [address] CAD S/P percutaneous coronar y angioplasty; [place], [place] Bradycardia [id number] Allergies Active Allergy Reactions [...] heart failure 12/17/2017 Coronary artery disease involving [place] heart without angina pectoris, 12/17/2017 unspecified vessel [...] History of Present Illness: Maryan Tripp is [id number] old female with history of chronic HFrEF (ICM, EF 35- 40% per echo 10/2019, NYHA II, Stage C).Slight increase in EF 30-35% in April 2018. PMH includes HTN, HLD, obesity, syncope/bradycardia s/pPM in 2007 (with upgrade to RESPONDER-D in 11/2015), and CAD s/p PCI (p-mLAD) 2014. She presents for a routine follow up. Pt denies any acute events or hospitalizations since [place]. Pt feeling well today. Denies chest pain, palpitations, SOB, CASEY, PND, orthopnea, dizziness, LE edema, orweight gain. Exercise tolerance limited due to OA. Compliant with medications and diet. 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 Past Medical History: Past Medical [...] file Gets together: Not on file Attends evangelical service: Not on file Active member of [...] mmHg. Right ventricular systolic pressure is normal. [facility]: 02/2018 LEFT CORONARY ARTERY: Left [...] Interrogation and programing multiple lead ICD Device: obopay Mode: DDDR 70 bpm Battery: 16 months Atrial Lead: Sensin.8 mV Impedance: 342 Ohms Threshold: 0.625 V @ 0.4 ms Atrial pacin % Right Ventricular Lead: Sensin.0 mV Impedance: 532 Ohms Threshold: 0.625 V @ 0.4 ms PHARMACY GRAD INTERN pacing percentage: 97.7 % Shock Impedance: RV [...] nightly 4. Bradycardia s/pPM 2007 (upgrade to RESPONDER-D 11/2015) - HR 98 -Continue coreg 3.125 [...] percutaneous coronary angioplast y Coronary atherosclerosis of [place] coron andrew artery Bradycardia Other specified cardiac dysrhythmias documented in this encounter Insurance Payer Benefit Plan / Subscriber ID Effective Dates Phone Addre ss Type Group MEDICARE MEDICARE PART [id number] 2014-Rd [phone] [address] Medicare A & B t 2 [id number] KRISTINE WALLER [id number] documented as of this encounter
--- OUTSIDE RECORDS SUMMARY | 2020-07-09 14:40 | XMS REPORT ---
:1950 Author Organization [employer] Care Team Providers Name Role Phone Onel Mcmullen Provider Role Unavailable Allergies, Adverse Reactions, Alerts Substance Reaction Event Type N.K.D.A. Info Not Available Non Drug Allergy Problems Problem Type Condition Code Onset Dates Condition Statu s Assessment Hypothyroidism E03.9 Active Assessment Age-related osteoporosis without M81.0 Active current pathological fracture Assessment Chronic systolic congestive heart I50.22 Active failure Problem Chronic obstructive pulmonary J44.9 Active disease, unspecified COPD type Problem Iron deficiency anemia, D50.9 Acti ve unspecified iron deficiency anemia type Problem Depression with anxiety F41.8 Acti ve Problem Bradycardia R00.1 Active Problem Peripheral vascular disease I73.9 Active Problem Insomnia G47.00 Active Problem Gastritis K29.70 Active Problem Dizziness R42 Active Problem Hypothyroidism E03.9 Active Problem Benign essential HTN I10 Active Problem Acute chronic obstructive J44.9 Ac tive pulmonary disease with respiratory distress Problem Myocardial infarction I21.3 Active Problem Allergic rhinitis J30.9 Active Problem Internal hemorrhoids K64.8 Active Problem TIA (transient ischemic attack) G45.9 Active Problem Diverticulosis large intestine w/o K57.30 Active perforation or abscess w/o bleeding Problem Stented coronary artery Z95.5 Acti ve Problem Head ache R51 Active Assessment Mixed hyperlipidemia E78.2 Active Assessment History of fall Z91.81 Active Assessment Head ache R51 Active Assessment GERD without esophagitis K21.9 Act kyree Problem Femur fracture S72.90XA Active Assessment Congestive heart failure, I50.9 Ac tive unspecified HF chronicity, unspecified heart failure type Problem Atherosclerosis of coronary artery I25.10 Active of [place] heart Problem Vasovagal syncope R55 Active Problem 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 [place] coronary artery of [place] heart with angina pectoris Problem Congestive heart failure, I50.9 Ac tive unspecified HF chronicity, unspecified heart failure type Problem CKD (chronic kidney disease) stage N18.3 Active 3, GFR 30-59 ml/min Problem GERD without esophagitis K21.9 Act kyree Problem Mixed hyperlipidemia E78.2 Active Assessment Chronic obstructive pulmonary J44.9 Active disease, unspecified COPD type Problem Hypocalcemia E83.51 Active Assessment 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 Problem 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 Assessment Peripheral vascular disease I73.9 Active Problem Chronic systolic congestive heart I50.22 Active failure Assessment Diverticulosis large intestine w/o K57.30 Active perforation or abscess w/o bleeding Problem Age-related osteoporosis without M81.0 Active current pathological fracture Assessment Iron deficiency anemia, D50.9 Acti ve unspecified iron deficiency anemia type Assessment 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 [place] coronary artery of [place] heart with angina pectoris Assessment Depression with anxiety F41.8 Acti ve Assessment Benign essential HTN I10 Active Assessment Insomnia G47.00 Active Assessment Atherosclerosis of coronary artery I25.10 Active of [place] heart Assessment CKD (chronic kidney disease) stage N18.3 Active 3, GFR 30-59 ml/min Medications Medication Code Code Instructions Start End Status Dosage System Date Date Protonix [facility] 41207992675 40 MG Orally Active 1 tabl et Once a day Levothyroxine [facility] 34140232455 100 MCG Orally Active 1 tablet Sodium Once a day on an empty stomach in the morning Entresto [facility] 60314716373 49-51 MG Orally Active 1 t ablet Twice a day Aspir-81 [facility] 42480120704 81 MG Orally Active 1 tabl et Once a day Vitamin D3 [facility] 35484407409 1000 UNIT Active 1 capsu le Orally Once a day Pantoprazole [facility] 93710312728 40 MG Orally Active 1 tablet Sodium Once a day Plavix [facility] 45198689012 75 MG Orally Active 1 table t Once a day Symbicort [facility] 01884716986 160-4.5 MCG/ACT Active 2 puffs Inhalation Twice a day Furosemide [facility] 68277494701 20 MG Orally Active 1 ta blet BID Trazodone HCl [facility] 65174663246 150 MG Orally Active take 1 Once a day tablet one time daily at bedtime BusPIRone HCl [facility] 64546993298 10 MG Orally Active 1 tablet Twice a day Trazodone HCl [facility] 98697770442 150 MG Orally Active 1 tablet Once a day at bedtime Sulfasalazine [facility] 09976910045 500 MG Orally Active 2 tablet Once a day Pravastatin [facility] 56325342452 40 MG Orally Active 1 t ablet Sodium Once a day ProAir HFA [facility] 07074833775 108 (90 Base) Active 2 p uffs as MCG/ACT needed Inhalation every 6 hrs Coreg [facility] 65940538259 3.125 MG Orally Active not defined Ferrous Sulfate [facility] 87520025798 325 (65 Fe) MG Activ e 1 tablet Orally Once a day Citalopram [facility] 30537173414 20 MG Orally Active 1 ta blet Hydrobromide Once a day Results No Known Results Summary Purpose [employer]ClinicalWorks Submission
[2020-07-09] MEDS ORDERED: HYDROCODONE/APAP 5/325 MG TAB ONE (16:13)
--- NOTE | 2020-07-09 16:25 | RAD REPORT ---
EXAM DESCRIPTION: RAD - Hip Left 2 View - 07/09/2020 4:15 pm CLINICAL HISTORY: hip pain Left leg pain COMPARISON: Hip Left 2 View dated 08/15/2016 FINDINGS: Left total hip arthroplasty is noted. No evidence of hardware loosening or infection.
--- NOTE | 2020-07-09 16:26 | RAD REPORT ---
EXAM DESCRIPTION: RAD - Ankle Left 3 View - 07/09/2020 4:15 pm CLINICAL HISTORY: ankle pain Pain and swelling COMPARISON: No comparisons FINDINGS: Mild soft tissue swelling is seen about the ankle. No acute fracture or dislocation eviden t. Small calcaneal spurs are evident.
--- NOTE | 2020-07-09 16:27 | RAD REPORT ---
EXAM DESCRIPTION: RAD - Foot Left 3 View - 07/09/2020 4:15 pm CLINICAL HISTORY: fall, foot pain COMPARISON: No comparisons FINDINGS: Mild diffuse osteopenia is seen. No acute fracture or dislocation seen. Small calcaneal sp urs are evident.
--- NOTE | 2020-07-09 18:47 | ER ---
Nurse's Notes [facility] Name: Maryan Tripp Age: 70 yrs Sex: Female : 1950 Arrival Date: 07/09/2020 Time: 14:38 Bed 15 Private MD: Onel Mcmullen Diagnosis: Sprain of ankle;Other bursitis of hip, left hip Presentation: 07/09 14:50 Chief complaint: Patient states: air mattress cord hit her on left leg 2 weeks ago and iw has had swelling and a knot on inside of left leg also has left hip pain. Coronavirus screen: At this time, the client does not indicate any symptoms associated with coronavirus-19. Ebola Screen: Patient negative for fever greater than or equal to 101.5 degrees Fahrenheit, and additional compatible Ebola Virus Disease symptoms Patient denies exposure to infectious person. Patient denies travel to an Ebola-affected area in the 21 days before illness onset. No symptoms or risks identified at this time. Initial Sepsis Screen: Does the patient meet any 2 criteria? No. Patient's initial sepsis screen is negative. Does the patient have a suspected source of infection? No. Patient's initial sepsis screen is negative. Risk Assessment: Do you want to hurt yourself or someone else? Patient reports no desire to harm self or others. Onset of symptoms was June 24, 2020. 14:50 Method Of Arrival: Wheelchair iw 14:50 Acuity: BRAYAN 3 iw Historical: - Allergies: 14:52 Sulfa (Sulfonamide Antibiotics); iw - PMHx: 14:52 cardiac stents; CHF; COPD; Myocardial infarction; Pacemaker; /defibrilator; Thyroid iw problem; - PSHx: 14:52 Cholecystectomy; Hysterectomy; Tonsillectomy; wrist surgery; ankle surgery; melanoma iw surgery; - Immunization history:: Adult Immunizations not up to date. - Social history:: Smoking status: Patient denies any tobacco usage or history of. Screenin:17 Abuse screen: Denies threats or abuse. Denies injuries from another. Nutritional iw screening: No deficits noted. Tuberculosis screening: No symptoms or risk factors identified. Fall Risk None identified. Assessment: 16:16 General: Appears in no apparent distress. Behavior is calm, cooperative. Pain: iw Complains of pain in left leg. Neuro: Level of Consciousness is awake, alert, obeys commands, Oriented to person, place, time, situation, Moves all extremities. Full function. Cardiovascular: Patient's skin is warm and dry. Respiratory: Respiratory effort is even, unlabored, Respiratory pattern is regular. GI: No signs and/or symptoms were reported involving the gastrointestinal system. Derm:. Musculoskeletal: Swelling present in left lateral ankle, left viramontes, anterior aspect of left ankle and dorsum of left foot. 16:40 Reassessment: Patient appears in no apparent distress at this time. Patient and/or iw family updated on plan of care and expected duration. Pain level reassessed. Patient is alert, oriented x 3, equal unlabored respirations, skin warm/dry/pink. Patient states feeling better. Patient states symptoms have improved. Vital Signs: 14:50 BP 122 / 62; Pulse 70; Resp 16; Temp 97.1; Pulse Ox 100% on R/A; Weight 90.72 kg; iw Height 5 ft. 7 in. (170.18 cm); Pain 7/10; 14:50 Body Mass Index 31.32 (90.72 kg, 170.18 cm) iw ED Course: 14:38 Patient arrived in ED. ag5 14:38 Onel Mcmlulen DO is Private Physician. ag5 14:51 Triage completed. iw 14:52 Arm band placed on. iw 14:59 Marin Justice PA is PHCP. [facility] 14:59 Sonu Zuluaga MD is Attending Physician. jmm 15:54 Charisse Patel, RN is Primary Nurse. iw 16:15 Foot Left 3 View XRAY In Process Unspecified. EDMS 16:15 Ankle Left 3 View XRAY In Process Unspecified. EDMS 16:15 Hip Left 2 View XRAY In Process Unspecified. EDMS 16:16 Patient has correct armband on for positive identification. iw 16:17 No provider procedures requiring assistance completed. Patient did not have IV access iw during this emergency room visit. 18:46 Onel Mcmullen DO is Referral Physician. jmm 18:51 US Extremity Venous Unilateral Ltd In Process Unspecified. EDMS Administered Medications: 16:15 Drug: [place] 5 mg-325 mg 1 tabs Route: PO; iw 17:15 Follow up: Response: No adverse reaction; Pain is decreased iw 19:14 Not Given (Patient Refused): [place] 10 mg-325 mg 1 tabs PO once; RASS on ADMIN: Combtv4, iw Very Agttd3, Agttd2, Rstlss1, AlertClm0, Drwsy-1, Lt Sdtn-2, Mod Sdtn-3, Dp Sdtn-4, UnArsble-5 Outcome: 18:47 Discharge ordered by . coty 19:16 Discharged to home ambulatory. iw 19:16 Condition: good 19:16 Discharge instructions given to patient, Instructed on discharge instructions, follow up and referral plans. medication usage, Demonstrated understanding of instructions, follow-up care, medications, Prescriptions given X 1. 19:17 Patient left the ED. iw Signatures: Dispatcher [employer] EDMS Marin Justice PA PA jmm Williams, Irene, RN RN farhan Parra, Taj ag5
--- NOTE | 2020-07-09 18:47 | EDPHYS ---
Physician Documentation [facility] Name: Maryan Tripp Age: 70 yrs Sex: Female : 1950 Arrival Date: 07/09/2020 Time: 14:38 Bed 15 Private MD: [facility] ED Physician Sonu Zuluaga HPI: 07/09 15:41 This 70 yrs old Female presents to ER via Wheelchair with complaints of Foot jmm Pain, Hip Pain. 15:41 The patient presents with an injury, pain. Onset: The symptoms/episode began/occurred jmm acutely, 10 day(s) ago. Modifying factors: The symptoms are alleviated by nothing. the symptoms are aggravated by weight bearing. Associated signs and symptoms: Pertinent positives: swelling. This is a 70 year old female with a history of CAD, CHF, IN, that presents to the ED with complaints of left leg pain. Patient states initially injuring her left ankle after tripping 10 days prior. Yesterday the patient developed increased swelling to her leg which radiates from her calf up to her hip. Patient denies chest pain or shortness of breath. . Historical: - Allergies: 14:52 Sulfa (Sulfonamide Antibiotics); iw - PMHx: 14:52 cardiac stents; CHF; COPD; Myocardial infarction; Pacemaker; /defibrilator; Thyroid iw problem; - PSHx: 14:52 Cholecystectomy; Hysterectomy; Tonsillectomy; wrist surgery; ankle surgery; melanoma iw surgery; - Immunization history:: Adult Immunizations not up to date. - Social history:: Smoking status: Patient denies any tobacco usage or history of. ROS: 15:41 Constitutional: Negative for fever, chills, and weight loss, Cardiovascular: Negative jmm for chest pain, palpitations, and edema, Respiratory: Negative for shortness of breath, cough, wheezing, and pleuritic chest pain. 15:41 MS/extremity: Positive for pain. 15:41 All other systems are negative. Exam: 15:41 Constitutional: This is a well developed, well nourished patient who is awake, alert, jmm and in no acute distress. Head/Face: atraumatic. Eyes: EOMI, no conjunctival erythema appreciated ENT: Moist Mucus Membranes Neck: Trachea midline, Supple Chest/axilla: Normal chest wall appearance and motion. Cardiovascular: Regular rate and rhythm. No edema appreciated Respiratory: Normal respirations, no respiratory distress appreciated Abdomen/GI: Non distended, soft Back: Normal ROM Skin: General appearance color normal 15:41 Musculoskeletal/extremity: ecchymosis noted to the left anterior ankle, full dorsalis pulse, compartments are soft, NVI. FROM appreciated to the left hip without pain. Point tender at the left greater trochanter, and the left lateral foot. . 15:41 Skin: Appearance: Color: normal in color, ecchymosis noted to the left foot. 15:41 Neuro: Orientation: is normal, Mentation: is normal, Memory: is normal. 15:41 Psych: Behavior/mood is pleasant, cooperative. Vital Signs: 14:50 BP 122 / 62; Pulse 70; Resp 16; Temp 97.1; Pulse Ox 100% on R/A; Weight 90.72 kg; iw Height 5 ft. 7 in. (170.18 cm); Pain 7/10; 14:50 Body Mass Index 31.32 (90.72 kg, 170.18 cm) iw MDM: 15:32 Patient medically screened. [facility] 18:44 Data reviewed: vital signs, nurses notes. Counseling: I had a detailed discussion with [facility] the patient and/or guardian regarding: the historical points, exam findings, and any diagnostic results supporting the discharge/admit diagnosis, radiology results, the need for outpatient follow up, to return to the emergency department if symptoms worsen or persist or if there are any questions or concerns that arise at home. 07/09 15:41 Order name: Foot Left 3 View XRAY; Complete Time: 18:21 [facility] 07/09 15:41 Order name: Ankle Left 3 View XRAY; Complete Time: 18:21 [facility] 07/09 15:41 Order name: Hip Left 2 View XRAY; Complete Time: 18:21 [facility] 07/09 15:41 Order name: US Extremity Venous Unilateral Ltd [facility] Administered Medications: 16:15 Drug: [place] 5 mg-325 mg 1 tabs Route: PO; iw 17:15 Follow up: Response: No adverse reaction; Pain is decreased iw 19:14 Not Given (Patient Refused): [place] 10 mg-325 mg 1 tabs PO once; RASS on ADMIN: Combtv4, iw Very Agttd3, Agttd2, Rstlss1, AlertClm0, Drwsy-1, Lt Sdtn-2, Mod Sdtn-3, Dp Sdtn-4, UnArsble-5 Disposition: 07/10 13:31 Co-signature as Attending Physician, Sonu Zuluaga MD I agree with the assessment and kdr plan of care. Disposition: 07/09/20 18:47 Discharged to Home. Impression: Sprain of ankle, Other bursitis of hip, left hip. - Condition is Stable. - Discharge Instructions: Ankle Sprain, Hip Bursitis. - Prescriptions for Ultracet 37.5- 325 mg Oral Tablet - take 1 tablet by ORAL route every 6 hours - for up to 5 days; do not exceed 8 tablets per day.; 12 tablet. - Medication Reconciliation Form, Thank You Letter, Antibiotic Education, Prescription Opioid Use form. - Follow up: Onel Mcmullen DO; When: 2 - 3 days; Reason: Recheck today's complaints, Continuance of care, Re-evaluation by your physician. Signatures: Dispatcher [employer] EDGA Sonu Zuluaga MD MD kdr Mickail, Joel, PA PA Charisse Avery, RN RN iw Corrections: (The following items were deleted from the chart) 07/09 19:17 18:47 07/09/2020 18:47 Discharged to Home. Impression: Sprain of ankle; Other bursitis iw of hip, left hip. Condition is Stable. Forms are Medication Reconciliation Form, Thank You Letter, Antibiotic Education, Prescription Opioid Use. Follow up: Onel Mcmullen; When: 2 - 3 days; Reason: Recheck today's complaints, Continuance of care, Re-evaluation by your physician. coty
[2020-07-09] MEDS ORDERED: HYDROCODONE/APAP 10/325 TAB ONE (19:04)
[2020-07-09 19:51] VITALS: BP 122/62; TEMP 97.1; O2SAT 100
--- NOTE | 2020-07-09 21:12 | RAD REPORT ---
EXAM DESCRIPTION: US - Extremity Venous Uni Ltd - 07/09/2020 6:51 pm CLINICAL HISTORY: PAIN Leg swelling and edema. COMPARISON: No comparisons FINDINGS: Left lower extremity venous system was interrogated with Doppler technique. Normal flow, c ompressibility and augmentation was noted. There is no DVT present. IMPRESSION: No evidence of left lower extremity deep venous thrombosis.
== END 2020-07-09 19:17 | disposition home or self-care (01) ==
LOC: ER 14:36
DX: S93.402A Sprain of unspecified ligament of left ankle, initial encounter (principal); M71.552 Other bursitis, not elsewhere classified, left hip; W18.40XA Slipping, tripping and stumbling without falling, unspecified, initial encounter; Y93.01 Activity, walking, marching and hiking; Y92.9 Unspecified place or not applicable; Z88.2 Allergy status to sulfonamides; Z95.818 Presence of other cardiac implants and grafts; Z95.810 Presence of automatic (implantable) cardiac defibrillator; I50.9 Heart failure, unspecified
CPT/HCPCS: 93971; 99283

== ENCOUNTER 2020-12-22 05:32 | Observation (INO) | payer OTHER ==
--- OUTSIDE RECORDS SUMMARY | 2020-12-22 05:35 | XMS REPORT | Continuity of Care Document ---
:1950 Author Organization [facility] t Address [address] [place] [address] Care Team Providers Name Role Phone Pacemaker/Icd Attending Clinician Unavailable Omole OPTICAL MODEL MAKER AND TESTER, [place] Attending Clinician Pob, Lab Main Attending Clinician Unavailable Problems This patient has no known problems. Allergies, Adverse Reactions, Alerts This patient has no known allergies or adverse reactions. Medications Ordered Filled Start Stop Current Ordering Indication Dosage Frequency Signature Comments Components Source Medication Medication Date Date Medication? Clinician (SIG) Name Name Plavix Plavix Yes Onel [facility] Citalopram Citalopram Yes Onel [address] [facility] Hydrobromid Hydrobromid [facility] Symbicort Symbicort Yes Onel [address] [facility] Levothyroxi Levothyroxi Yes Onel [address] [facility] ne Sodium ne Sodium [facility] on an [place] es - empty [facility] stomach in l the [facility] Ferrous Ferrous Yes Onel [address] [facility] Sulfate Sulfate [facility] ProAir HFA ProAir HFA Yes Onel [address] [facility] BusPIRone BusPIRone Yes Onel [address] [facility] HCl HCl [facility] Vitamin D3 Vitamin D3 Yes Onel [address] [facility] Protonix Protonix Yes Onel [address] [facility] Trazodone Trazodone Yes Onel [address] [facility] HCl HCl [facility] at bedtime [facility] Trazodone Trazodone Yes Onel take [address] HCl HCl [facility] tablet one [facility] time daily [facility] at [facility]time [facility] Coreg Coreg Yes Onel not [facility] defined [facility] Furosemide Furosemide Yes Onel [address] [facility] -81 Aspir- Yes Onel [address] [facility] Pravastatin Pravastatin Yes Onel [address] [facility] Sodium Sodium [facility] Sulfasalazi Sulfasalazi Yes Onel [address] [facility] ne ne [facility] Entresto Entresto Yes Onel [address] [facility] Pantoprazol Pantoprazol Yes Onel [address] [facility] e Sodium e Sodium [facility] Procedures This patient has no known procedures. Encounters Start End Encounter Admission Attending Care Care Encounter Source Date/Time Date/Time Type Type Clinicians Facility Department ID 2020-12-13 2020-12-13 Outpatient [facility] [id number] [id number] 2020-12-01 2020-12-01 Outpatient [facility] [id number] [facility] 2020-12-01 2020-12-01 Outpatient [facility] [id number] [facility] 2020-10-05 2020-10-05 Laboratory Pacemaker/I [facility] [id number] 14:01:57 14:44:53 Only raymond, [facility] [id number] [place] [id number] Professio [phone] nal 059 [facility] 2020-10-04 2020-10-04 Telephone Omole, [facility] [id number] 00:00:00 00:00:00 [place] [id number] [place] [id number] Professio [phone] nal 059 [facility] 2020-10-04 2020-10-04 Outpatient [facility] [id number] [facility] 2020-09-06 2020-09-06 Mechanical Systems Design Engineer Tracey Zhao [facility] [id number] 16:44:57 16:59:57 Visit Lab [facility] [place] [id number] [place] [id number] Professio [phone] nal 353 [facility] 2020-09-06 2020-09-06 Office Omole, [facility] [id number] 15:43:17 16:28:17 Visit Jack [place] [id number] [place] [id number] Professio [phone] nal 059 [facility] 2020-08-31 2020-08-31 Outpatient [facility] [id number] [facility] 2020-05-14 2020-05-14 [facility] [id number] 09:30:00 09:30:00 t [employer] [facility] 2020-02-25 2020-02-25 [facility] [id number] 08:15:00 08:15:00 t [employer] [facility] Medicine Outpati ent Clinics 2020-02-25 2020-02-25 [facility] [id number] 08:00:00 08:00:[address] [facility] Medicine l Medicine Outpati ent Clinics 2020-01-05 2020-01-05 [facility] [id number] 15:23:00 15:23:[address] [facility] l Medicine Outpati ent Clinics 2019-10-06 2019-10-06 [facility] [id number] 15:39:00 15:39:[address] [facility] Medicine l Medicine Outpati ent Clinics 2019-08-07 2019-08-07 [facility] [id number] 15:15:00 15:15:[address] [facility] Medicine l Medicine Outpati ent Clinics 2019-07-16 2019-07-16 [facility] [id number] 13:31:00 13:31:[address] - [address] [facility] l Medicine Outpati ent Clinics 2019-07-10 2019-07-10 [facility] [id number] 11:31:00 11:31:[address] - [address] [facility] l Medicine Outpati ent Clinics 2019-06-16 2019-06-16 [facility] [id number] 13:45:00 13:45:[address] [place] [address] - [address] [facility] l Medicine Outpati ent Clinics 2019-06-06 2019-06-06 [facility] [id number] 11:58:00 11:58:[address] [place] [address] - [address] [facility] Medicine Outpati ent Clinics 2019-06-04 2019-06-04 [facility] [id number] 11:13:00 11:13:[address] [place] [address] - [address] [facility] Medicine Outpati ent Clinics 2019-06-03 2019-06-03 [facility] [id number] 11:31:00 11:31:[address] [place] - Drive [facility] 2019-04-01 2019-04-01 [facility] [id number] 13:00:00 13:00:00 t [employer] [facility] 2018-12-25 2018-12-25 Out[facility] [id number] 15:45:00 15:45:00 [employer] [facility] ent Clinics Results This patient has no known results.
[2020-12-22 06:22] LABS: ALT/SGPT 18 U/L (12-78); Albumin 3.2 g/dL (3.4-5.0); Alkaline Phosphatase 58 U/L (45-117); BUN Blood Urea Nitrogen 15 mg/dL (7-18); Bicarbonate 25 mmol/L (21-32); Bilirubin Direct < 0.1 mg/dL (0-0.2); Bilirubin Total 0.4 mg/dL (0.2-1.0); Glucose Level 102 mg/dL (74-106); NT PRO-BNP 261 pg/mL (<125); Protein, Total 6.7 g/dL (6.4-8.2); Sodium Level 140 mmol/L (136-145); Troponin (Emerg Dept Use Only) < 0.02 ng/mL (0.0-0.045)
[2020-12-22] MEDS ORDERED: NITROGLYCERIN 0.4 MG/TAB SL ONE (06:28)
[2020-12-22 06:29] LABS: AST/SGOT 58 U/L (15-37); Magnesium 2.2 mg/dL (1.8-2.4); Potassium 3.8 mmol/L (3.5-5.1)
[2020-12-22 06:33] LABS: Protime INR 1.03
--- NOTE | 2020-12-22 06:55 | ER ---
Nurse's Notes [facility] Name: Maryan Tripp Age: 70 yrs Sex: Female : 1950 Arrival Date: 12/22/2020 Time: 05:34 Bed 8 Private MD: Diagnosis: Chest pain, unspecified Presentation: 12/22 05:34 Chief complaint: EMS states: chest pain that started 1 hour ago, given 324 ASA, 20 G em RAC, VSS. Coronavirus screen: Client denies travel out of the [place] in the last 14 days. Ebola Screen: Patient negative for fever greater than or equal to 101.5 degrees Fahrenheit, and additional compatible Ebola Virus Disease symptoms Patient denies exposure to infectious person. Patient denies travel to an Ebola-affected area in the 21 days before illness onset. No symptoms or risks identified at this time. Initial Sepsis Screen: Does the patient meet any 2 criteria? No. Patient's initial sepsis screen is negative. Does the patient have a suspected source of infection? No. Patient's initial sepsis screen is negative. Risk Assessment: Do you want to hurt yourself or someone else? Patient reports no desire to harm self or others. Onset of symptoms was December 22, 2020. 05:34 Method Of Arrival: EMS: [facility] em 05:34 Acuity: BRAYAN 3 em Historical: - Allergies: 05:37 Sulfa (Sulfonamide Antibiotics); em - PMHx: 05:37 cardiac stents; CHF; COPD; Myocardial infarction; Pacemaker; /defibrilator; Thyroid em problem; - PSHx: 05:37 Cholecystectomy; Hysterectomy; wrist surgery; ankle surgery; Tonsillectomy; melanoma em surgery; - Immunization history:: Adult Immunizations up to date. - Social history:: Smoking status: Patient denies any tobacco usage or history of. - Family history:: not pertinent. - Hospitalizations: : No recent hospitalization is reported. Screenin:41 Abuse screen: Denies threats or abuse. Nutritional screening: No deficits noted. ea Tuberculosis screening: No symptoms or risk factors identified. Fall Risk None identified. Assessment: 05:40 General: Appears in no apparent distress. Behavior is calm, cooperative, appropriate ea for age. Pain: Complains of pain in chest Pain does not radiate. Pain began 1 hour ago. Neuro: Level of Consciousness is awake, alert, obeys commands, Oriented to person, place, time. Cardiovascular: Patient's skin is warm and dry. Respiratory: Airway is patent Respiratory effort is even, unlabored, Respiratory pattern is regular, symmetrical. Derm: Skin is pink, warm \T\ dry. 07:05 Reassessment: Dr Walters at the bedside. sv 07:20 Reassessment: Patient appears in no apparent distress at this time. No changes from previously documented assessment. Patient and/or family updated on plan of care and expected duration. Pain level reassessed. Patient is alert, oriented x 3, equal unlabored respirations, skin warm/dry/pink. 07:51 Reassessment: Dr Aviles at the bedside. sv 09:00 Reassessment: Patient appears in no apparent distress at this time. No changes from previously documented assessment. Patient and/or family updated on plan of care and expected duration. Pain level reassessed. Patient is alert, oriented x 3, equal unlabored respirations, skin warm/dry/pink. 09:45 Reassessment: Dr. Walters at bedside states that he wants to give patient 250 mL bolus ss of NS now and reevaluate patient 's VS after. 10:43 Reassessment: Called and spoke with Dr Walters regarding updated vitals. Pt ok to go to the floor. 10:54 Reassessment: Patient appears in no apparent distress at this time. Patient and/or sv family updated on plan of care and expected duration. Pain level reassessed. Patient is alert, oriented x 3, equal unlabored respirations, skin warm/dry/pink. 11:20 Reassessment: Patient appears in no apparent distress at this time. Patient and/or sv family updated on plan of care and expected duration. Pain level reassessed. Patient is alert, oriented x 3, equal unlabored respirations, skin warm/dry/pink. Vital Signs: 05:34 BP 143 / 78; Resp 18; Temp 98.7; Pulse Ox 100% on R/A; Weight 90.72 kg (R); Height 5 em ft. 7 in. (170.18 cm) (R); Pain 7/10; 06:57 BP 129 / 63; Pulse 72; Resp 18; Pulse Ox 99% ; ea 07:30 BP 134 / 67; Pulse 70; Resp 16; Pulse Ox 96% ; sv 08:30 BP 119 / 64; Pulse 70; Resp 16; Pulse Ox 98% ; sv 09:00 BP 107 / 66; Pulse 70; Resp 18; Pulse Ox 98% ; sv 09:45 BP 102 / 53; Pulse 70; Resp 16; Pulse Ox 98% ; sv 10:44 BP 124 / 70; Pulse 72; Resp 16; Pulse Ox 98% ; sv 05:34 Body Mass Index 31.32 (90.72 kg, 170.18 cm) em ED Course: 05:34 Patient arrived in ED. em 05:36 Triage completed. em 05:37 Arm band placed on. em 05:37 Maintain EMS IV. Dressing intact. Good blood return noted. Site clean \T\ dry. Gauge \T\ em site: 20 R AC. 05:40 EKG done, by ED staff, reviewed by Abelino Gabriel MD. sg 05:41 Patient has correct armband on for positive identification. Bed in low position. Call ea light in reach. Side rails up X2. pvc monitor on. Pulse ox on. NIBP on. 05:41 Patient maintains SpO2 saturation greater than 95% on room air. ea 05:45 Abelino Gabriel MD is Attending Physician. rn 06:06 XRAY Chest (1 view) In Process Unspecified. EDMS 06:13 Notified ED physician of a critical lab result(s). Plt of 11. sg 06:54 Bolivar Walters DO is Hospitalizing Provider. rn 06:58 No provider procedures requiring assistance completed. Patient admitted, IV remains in ea place. 07:14 Janett Orantes, SILVIA is Primary Nurse. sv 08:16 Basic Metabolic Panel Sent. sv Administered Medications: 06:57 Drug: morphine 4 mg Route: IVP; Site: right antecubital; ea 07:20 Follow up: Response: No adverse reaction; Pain is decreased; RASS: Alert and Calm (0) sv 06:58 Not Given (Patient Refused): Nitroglycerin 0.4 mg Sublingual once ea 09:58 Drug: NS 0.9% 250 ml Route: IV; Rate: bolus; Site: right antecubital; ss 10:25 Follow up: Response: No adverse reaction; IV Status: Completed infusion; IV Intake: sv 250ml Intake: 10:25 IV: 250ml; Total: 250ml. sv Outcome: 06:55 Decision to Hospitalize by Provider. rn 06:58 Instructed on the need for admit, Demonstrated understanding of instructions. basil 10:53 Admitted to Tele accompanied by tech, via wheelchair, room 224, with chart, Report sv called to Lavinia VEGA 10:53 Condition: stable 11:40 Patient left the ED. sv Signatures: Dispatcher [employer] Janett Kaplan RN RN sv Gay, Steven RN Alex Modi RN Abelino Siddiqui MD MD rn Smirch, Shelby, RN RN ss Antunez, Elena, RN RN ea
--- NOTE | 2020-12-22 06:55 | EDPHYS ---
Physician Documentation [facility] Name: Maryan Tripp Age: 70 yrs Sex: Female : 1950 Arrival Date: 12/22/2020 Time: 05:34 Bed 8 Private MD: ED Physician Abelino Gabriel HPI: 12/22 06:46 This 70 yrs old Female presents to ER via EMS with complaints of Chest Pain > rn 29 y/o. 06:46 The patient or guardian reports chest pain that is located primarily in the substernal rn area. 06:47 Onset: just prior to arrival. The pain does not radiate. Associated signs and symptoms: rn Pertinent positives: diaphoresis, Pertinent negatives: abdominal pain, cough, shortness of breath, syncope. The chest pain is described as a heaviness. Duration: The patient or guardian reports a single episode, that is still ongoing. Modifying factors: The symptoms are alleviated by nothing. the symptoms are aggravated by nothing. Severity of pain: At its worst the pain was moderate in the emergency department the pain has improved. The patient has experienced similar episodes in the past. Reports woke up with chest pressure, feels like someone sitting on her chest, has had AL with stents is past. No fever or infectious symptoms. NO trauma. No abd pain. Given aspirin by EMS with some improvement. Declines nitro here because has passed out with it before. . Historical: - Allergies: 05:37 Sulfa (Sulfonamide Antibiotics); em - PMHx: 05:37 cardiac stents; CHF; COPD; Myocardial infarction; Pacemaker; /defibrilator; Thyroid em problem; - PSHx: 05:37 Cholecystectomy; Hysterectomy; wrist surgery; ankle surgery; Tonsillectomy; melanoma em surgery; - Immunization history:: Adult Immunizations up to date. - Social history:: Smoking status: Patient denies any tobacco usage or history of. - Family history:: not pertinent. - Hospitalizations: : No recent hospitalization is reported. ROS: 06:47 Constitutional: Negative for fever, chills, and weight loss, + diaphoresis Eyes: rn Negative for injury, pain, redness, and discharge, Neck: Negative for injury, pain, and swelling, Cardiovascular: + chest pain Respiratory: Negative for shortness of breath, cough, wheezing, and pleuritic chest pain, Abdomen/GI: Negative for abdominal pain, nausea, vomiting, diarrhea, and constipation, Back: Negative for injury and pain, MS/Extremity: Negative for injury and deformity, Skin: Negative for injury, rash, and discoloration, Neuro: Negative for headache, weakness, numbness, tingling, and seizure. Exam: 06:47 Constitutional: This is a well developed, well nourished patient who is awake, alert rn Head/Face: Normocephalic, atraumatic. Cardiovascular: Regular rate and rhythm. No pulse deficits. Respiratory: No increased work of breathing, no retractions or nasal flaring. Abdomen/GI: soft, non-tender Skin: Warm, dry MS/ Extremity: Pulses equal, no cyanosis. Neuro: Awake and alert, GCS 15 Vital Signs: 05:34 BP 143 / 78; Resp 18; Temp 98.7; Pulse Ox 100% on R/A; Weight 90.72 kg (R); Height 5 em ft. 7 in. (170.18 cm) (R); Pain 7/10; 06:57 BP 129 / 63; Pulse 72; Resp 18; Pulse Ox 99% ; ea 07:30 BP 134 / 67; Pulse 70; Resp 16; Pulse Ox 96% ; sv 08:30 BP 119 / 64; Pulse 70; Resp 16; Pulse Ox 98% ; sv 09:00 BP 107 / 66; Pulse 70; Resp 18; Pulse Ox 98% ; sv 09:45 BP 102 / 53; Pulse 70; Resp 16; Pulse Ox 98% ; sv 10:44 BP 124 / 70; Pulse 72; Resp 16; Pulse Ox 98% ; sv 05:34 Body Mass Index 31.32 (90.72 kg, 170.18 cm) em MDM: 05:46 Patient medically screened. rn 06:47 Differential diagnosis: acute myocardial infarction, acute pericarditis, coronary rn artery disease chest wall pain, esophagitis, gastritis, gastroesophageal reflux disease (GERD), pancreatitis, peptic ulcer disease. Data reviewed: vital signs, nurses notes, lab test result(s), EKG, radiologic studies, plain films, and as a result, I will admit patient. Counseling: I had a detailed discussion with the patient and/or guardian regarding: the historical points, exam findings, and any diagnostic results supporting the discharge/admit diagnosis, lab results, radiology results, the need for further work-up and treatment in the hospital. Response to treatment: the patient's symptoms have mildly improved after treatment, and as a result, I will admit patient. Admission orders: after a detailed discussion of the patient's condition and case, the admit orders are written by me. ED course: Neg [place], will admit to Dr. Walters for chest pain evaluation. . 12/22 05:38 Order name: Basic Metabolic Panel em 12/22 05:38 Order name: CBC with Diff em 12/22 05:38 Order name: LFT's; Complete Time: 06:40 em 12/22 05:38 Order name: Magnesium; Complete Time: 06:40 em 12/22 05:38 Order name: NT PRO-BNP; Complete Time: 06:40 em 12/22 05:38 Order name: PT-INR; Complete Time: 06:40 em 12/22 05:38 Order name: Troponin (emerg Dept Use Only); Complete Time: 06:40 em 12/22 05:38 Order name: Basic Metabolic Panel; Complete Time: 06:40 EDMS 12/22 06:13 Order name: CBC Smear Scan EDMS 12/22 06:57 Order name: COVID-19 : Document "Date of Symptom Onset" if Symptomatic. tt3 12/22 07:30 Order name: Ferritin EDMS 12/22 07:30 Order name: Fibrinogen EDMS 12/22 07:30 Order name: Lactic Dehydrogenase EDMS 12/22 07:30 Order name: PTT, Activated Partial Thromb EDMS 12/22 05:38 Order name: XRAY Chest (1 view) em 12/22 05:38 Order name: EKG; Complete Time: 05:39 em 12/22 05:38 Order name: Cardiac monitoring; Complete Time: 06:07 em 12/22 05:38 Order name: EKG - Nurse/Tech; Complete Time: 05:46 em 12/22 07:30 Order name: Transferrin Sat/Iron Binding EDMS 12/22 07:30 Order name: Vitamin B12 Level EDMS 12/22 07:30 Order name: Haptoglobin EDMS 12/22 08:31 Order name: SARS-COV-2 RT PCR EDMS 12/22 09:10 Order name: CBC with Automated Diff EDMS 12/22 11:26 Order name: Lipid Profile EDMS 12/22 11:26 Order name: T4 Free EDMS 12/22 11:26 Order name: Thyroid Stimulating Hormone EDWI 12/22 11:26 Order name: Manual Differential EDWI 12/22 05:38 Order name: IV Saline Lock; Complete Time: 05:46 em 12/22 05:38 Order name: Labs collected and sent; Complete Time: 05:46 em 12/22 05:38 Order name: O2 Per Protocol; Complete Time: 05:46 em 12/22 05:38 Order name: O2 Sat Monitoring; Complete Time: 05:46 em Administered Medications: 06:57 Drug: morphine 4 mg Route: IVP; Site: right antecubital; ea 07:20 Follow up: Response: No adverse reaction; Pain is decreased; RASS: Alert and Calm (0) sv 06:58 Not Given (Patient Refused): Nitroglycerin 0.4 mg Sublingual once ea 09:58 Drug: NS 0.9% 250 ml Route: IV; Rate: bolus; Site: right antecubital; ss 10:25 Follow up: Response: No adverse reaction; IV Status: Completed infusion; IV Intake: sv 250ml Disposition: 12/22/20 06:55 Hospitalization ordered by Bolivar Walters for Observation. Preliminary diagnosis is Chest pain, unspecified. - Bed requested for Telemetry/MedSurg (observation). - Status is Observation. sv - Condition is Stable. - Problem is new. - Symptoms have improved. Signatures: Dispatcher [employer] [facility] Ophelia Sloan Janett Willams RN Alex Smith RN Abelino Siddiqui MD MD rn Smirch, Shelby, RN RN Kristy Nance RN RN ea Corrections: (The following items were deleted from the chart) 09:19 06:55 Hospitalization Ordered by Bolivar Walters DO for Observation. Preliminary bd diagnosis is Chest pain, unspecified. Bed requested for Telemetry/MedSurg (observation). Status is Observation. Condition is Stable. Problem is new. Symptoms have improved. rn 11:40 09:19 12/22/2020 06:55 Hospitalization Ordered by Bolivar Walters DO for Observation. sv Preliminary diagnosis is Chest pain, unspecified. Bed requested for Telemetry/MedSurg (observation). Status is Observation. Condition is Stable. Problem is new. Symptoms have improved. bd
[2020-12-22] MEDS ORDERED: MORPHINE 4 MG/ML SYR ONE (07:11)
--- NOTE | 2020-12-22 08:02 | P.HP ---
Certification for Inpatient Patient admitted to: Observation With expected LOS: <2 Midnights Patient will require the following post-hospital care: None Practitioner: I am a practitioner with admitting privileges, knowledge of patient current condition, hospital course, and medical plan of care. Services: Services provided to patient in accordance with Admission requirements found in Title 42 Section 412.3 of the Code of Federal Regulations Patient History Date of Service: 12/22/20 Primary Care Provider: unknown; Cardiology-Dr. Morfin ([facility]) Reason for admission: Chest pain History of Present Illness: 70-year-old female with history of CAD with prior stent, pacemaker, hypertension, depression with anxiety, CHF. Patient reported chest pain early this morning around 5 AM when she woke up. Pain was substernal in nature. It felt like a heaviness and somebody sitting on her chest. She denied any nausea, vomiting, diaphoresis. This pain radiated to the back. She has not had this type of chest pain before. She is seen by cardiology at [facility]. She is also seen by the CHF specialist at [facility]. Patient reports having her pacemaker checked last week which was unremarkable. She also reports having a stress test probably about 1 year ago which was unremarkable. She came to the ER for further evaluation. In the ER patient was evaluated. EKG shows paced rhythm. Blood pressure 125/63. White count 4. Hemoglobin 11.5. Platelet count was 11. Sodium 140, potassium 3.8. Creatinine 0.97 with a GFR of 57. Glucose 162. Troponin less than 0.02. BNP 261. Chest x-ray unremarkable. Patient appeared stable. Patient admitted for further evaluation. Repeat CBC and lab pending due to low platelet count. When I saw the patient in the ER, she was without any chest pain. This was relieved with morphine. Allergies Sulfa (Sulfonamide Antibiotics) Allergy (Verified 10/25/19 21:38) Anaphylaxis Home medications list reviewed: Yes Home Medications: Buspirone HCl [Buspar] 10 mg PO BID PRN 08/15/16 Trazodone [Desyrel*] 150 mg PO BEDTIME 08/15/16 Aspirin 81 mg PO DAILY 08/03/17 Citalopram Hydrobromide [Citalopram HBr] 20 mg PO DAILY 08/03/17 Clopidogrel Bisulfate [Plavix*] 75 mg PO DAILY 08/03/17 carvediloL [Carvedilol] 3.125 mg PO BID 08/03/17 Ferrous Sulfate [Ferrous Sulfate*] 325 mg PO DAILY 02/15/18 Furosemide [Lasix*] 20 mg PO DAILY PRN 02/15/18 Pantoprazole [Protonix Tab*] 40 mg PO DAILY 02/15/18 Levothyroxine Sodium 1 tab PO DAILY 10/25/19 Pravastatin Sodium 1 tab PO DAILY 10/25/19 Sacubitril/Valsartan [Entresto 24 mg-26 mg Tablet] 1 tab PO DAILY 10/25/19 sulfaSALAzine [Sulfasalazine] 1 tab PO BID 10/25/19 Famotidine [Pepcid] 20 mg PO BID #14 tablet 10/26/19 Naproxen [EC-Naprosyn] 500 mg PO TID #15 tablet. 10/26/19 - Past Medical/Surgical History Diabetic: No -: Coronary artery disease, stent x1 -: Internal carotid defibrillator/pacemaker -: COPD -: Hypertension -: Hyperlipidemia -: Depression with anxiety -: Grave's disease -: Peripheral vascular disease -: diverticulosis -: Internal carotid defibrillator -: Cardiac stent -: cholecystectomy -: hysterectomy -: left hip sx -: right ankle sx -: right wrist sx -: left shoulder skin cancer removed Psychosocial/ Personal History: She is , she has 1 child, she does not work. - Family History Mother -: Cancer, Other (see notes) Notes: dementia Father -: Heart disease, Liver disease, Other (see notes) Notes: liver CA - Social History Smoking Status: Never smoker Alcohol use: No CD- Drugs: No Caffeine use: Yes Place of Residence: Home Review of Systems General: As per HPI Eyes: Unremarkable ENT: Unremarkable Respiratory: Unremarkable Cardiovascular: Chest Pain, As per HPI Gastrointestinal: Unremarkable Genitourinary: Unremarkable Musculoskeletal: Unremarkable Integumentary: Unremarkable Neurological: Unremarkable Lymphatics: Unremarkable Physical Examination - Physical Exam General: Alert, In no apparent distress, Oriented x3, Cooperative HEENT: Atraumatic, Normocephalic, Mucous membr. moist/pink Neck: Supple Respiratory: Clear to auscultation bilaterally Cardiovascular: Normal pulses, Regular rate/rhythm Gastrointestinal: Normal bowel sounds, Soft and benign, Non-distended, No tenderness, No masses, No rebound, No guarding Musculoskeletal: No erythema, No tenderness, No warmth Integumentary: No tenderness/swelling, No erythema, No warmth, No cyanosis Neurological: Normal speech, Normal strength at 5/5 x4 extr, Normal tone, Normal affect - Studies Laboratory Data (last 24 hrs) 12/22/20 05:40: PT 11.9, INR 1.03 12/22/20 05:40: WBC 4.00 L, Hgb 11.5 L, Hct 35.0 L, Plt Count 11 L* 12/22/20 05:40: Sodium 140, Potassium 3.8, BUN 15, Creatinine 0.97, Glucose 102, Magnesium 2.2, Total Bilirubin 0.4, AST 58 H, ALT 18, Alkaline Phosphatase 58 Assessment and Plan - Plan Impression: Chest pain with history of CAD and prior stent, pacemaker defibrillator Chronic CHF likely diastolic Thrombocytopenia Hypertension Hyperlipidemia Depression with anxiety Plan: Chest pain with history of CAD and prior stent, pacemaker defibrillator: Patient will be admitted for further evaluation and treatment. Cardiology consulted to further evaluate. Await recommendation. We will keep the patient n.p.o. in anticipation for possible cardiac stress test versus other intervention. Other consideration would be outpatient evaluation. Will monitor cardiac enzymes and telemetry. Will order echocardiogram. Will hold aspirin, Plavix due to thrombocytopenia. Will need to verify if thrombocytopenia is lab error or other. Prior studies shows normal platelet count. If abnormal will discuss with hematology. Patient may require platelet count if low as well. No bleeding noted at this time. Restart home medications for hypertension and CHF. Await further recommendations from cardiology. Anticipate possible discharge as early as today if work-up unremarkable. Chronic CHF likely diastolic: Continue 1500 cc/day fluid restriction. Continue home medication of Lasix. Thrombocytopenia: Recheck CBC. Will obtain other labs to further evaluate. Will also check peripheral smear. Hold aspirin and Plavix at this time. If this remains abnormal will discuss with hematology for plan of care. Patient may require platelet if this remains low. Hypertension: Restart home medications Hyperlipidemia: We will check fasting lipid panel. Restart home medication. Depression with anxiety: Need to restart home medication. Discharge Plan: Home Plan to discharge in: 24 Hours - Advance Directives Does patient have a Living Will: No Does patient have a Durable POA for Healthcare: No - Code Status/Comfort Care Code Status Assessed: Yes (full code) Time Spent Managing Pts Care (In Minutes): 55
[2020-12-22] MEDS ORDERED: LORAZEPAM 0.5 MG TABLET PO PRN (08:07)
[2020-12-22 08:52] LABS: Absolute Lymphocytes (CBC) 1.3 K/uL (0.7-4.9); Basophils % 1.2 % (0-1.3); Hematocrit 33.6 % (36.0-45.0); Lymphocytes % 26.7 % (15.3-44.8); MPV 8.2 fL (7.6-11.3); RBC Red Blood Cell Count 3.89 M/uL (3.86-4.86)
[2020-12-22] MEDS ORDERED: lisinopriL 10 MG TAB PO SCH (09:12)
[2020-12-22] MEDS ORDERED: ONDANSETRON 4 MG/2 ML VIAL IV PRN (09:12)
[2020-12-22] MEDS ORDERED: FUROSEMIDE 40 MG TABLET PO SCH (09:12)
[2020-12-22] MEDS ORDERED: ACETAMINOPHEN 500 MG TAB PO PRN (09:12)
[2020-12-22 09:19] LABS: Ferritin 9.4 ng/mL (8-388)
--- NOTE | 2020-12-22 09:43 | RAD REPORT ---
EXAM DESCRIPTION: Chest Radiography COMPARISON: Chest radiograph March 24, 2019 report only CLINICAL HISTORY: [facility] MAIN CHEST PAIN FINDINGS: A single AP view of the chest demonstrates a normal cardiomediastinal silhouette. Left sarah st pacemaker in place. No pneumothorax or significant pleural effusion. Mild bilateral perihilar opacities are present. Osseous structures are intact. IMPRESSION: Mild bilateral perihilar opacities may represent pulmonary edema or early infection. Electronically signed by: Ant Phan MD 12/22/2020 6:15 AM CDT Due to temporary technical issues with the PACS/Fluency reporting system, reports are being signed by the in house radiologist without review as a courtesy to ensure prompt reporting. The interpreting r adiologist is fully responsible for the content of the report.
[2020-12-22] MEDS ORDERED: NA CHLORIDE 0.9% 250 ML ONE (10:11)
[2020-12-22 11:25] LABS: Thyroid Stimulating Hormone 1.67 uIU/mL (0.360-3.740)
[2020-12-22 11:26] LABS: Blood Morphology Comment NOT SEEN (NOT SEEN); Platelet Estimate ADEQ; Platelets, Giant PRESENT
[2020-12-22 12:07] VITALS: BMI 31.3
[2020-12-22 13:11] VITALS: BP 141/66; TEMP 97
[2020-12-22 14:09] VITALS: O2SAT 95
[2020-12-22 14:10] LABS: CKMB Creatine Kinase MB < 1.0 ng/mL (0.3-3.6); Creatine Phosphokinase 50 U/L (26-192); Troponin I < 0.02 ng/mL (0.0-0.045)
[2020-12-22] MEDS ORDERED: BUSPIRONE HCL 5 MG TABLET PO PRN (14:15)
--- NOTE | 2020-12-22 16:31 | P.DS ---
Admission Date: 12/22/20 Discharge Date: 12/22/20 Primary Care Provider: unknown; Cardiology-Dr. Morfin ([facility]) Disposition: ROUTINE DISCHARGE Discharge Condition: GOOD Reason for Admission: Chest pain Consultations: Cardiology-Dr. Aviles Procedures: COVID: Negative Medical Problem List: Chest pain with history of CAD and prior stent, pacemaker defibrillator Chronic systolic CHF Vitamin B12 deficiency Hypertension Hyperlipidemia Depression with anxiety Chronic pain Brief History of Present Illness: 70-year-old female with history of CAD with prior stent, pacemaker, hypertension, depression with anxiety, CHF. Patient reported chest pain early this morning around 5 AM when she woke up. Pain was substernal in nature. It felt like a heaviness and somebody sitting on her chest. She denied any nausea, vomiting, diaphoresis. This pain radiated to the back. She has not had this type of chest pain before. She is seen by cardiology at [facility]. She is also seen by the CHF specialist at [facility]. Patient reports having her pacemaker checked last week which was unremarkable. She also reports having a stress test probably about 1 year ago which was unremarkable. She came to the ER for further evaluation. In the ER patient was evaluated. EKG shows paced rhythm. Blood pressure 125/ 63. White count 4. Hemoglobin 11.5. Platelet count was 11. Sodium 140, potassium 3.8. Creatinine 0.97 with a GFR of 57. Glucose 162. Troponin less than 0.02. BNP 261. Chest x-ray unremarkable. Patient appeared stable. Patient admitted for further evaluation. Repeat CBC did not show platelet abnormality. Hospital Course: Patient presented with chest pain. Patient with history of CAD and prior stent. Patient also with pacemaker defibrillator, hypertension, hyperlipidemia and chronic systolic CHF. The patient was seen and evaluated. No significant EKG changes noted. Cardiac enzymes x2 were negative. Patient was seen and evaluated by cardiology. No intervention was required. There was some consideration for heart catheterization but heart catheterization lab was not available. Cardiology recommended that the patient follow-up with her correctional program officer at [facility] within 1 week. Cardiology recommends that heart catheterization in the near future may be required to further evaluate. Patient was educated on CHF as the patient was not following a 1500 cc/day fluid restriction. At discharge she will continue with a 1500 cc/day fluid restriction and low-salt diet. At discharge she will continue with Lasix 20 mg daily. Recommend to monitor her weight daily. If her weight increases by more than 5 pounds she is to contact her correctional program officer for further recommendation. At discharge she will continue with her current medications of aspirin 81 mg daily, Plavix 75 mg daily, carvedilol 3.125 mg 1 pill twice daily, pravastatin 10 mg daily and Entresto 49/51 mg once daily. Education on CHF, hypertension, CAD provided. As recommended above, patient will follow up with cardiology within 1 week for possible future heart catheterization. Patient with depression with anxiety. At discharge she will continue with her medications including BuSpar 10 mg 1 pill twice daily, Celexa 20 mg daily. She also takes trazodone 150 mg at bedtime. Patient with hypothyroidism. At discharge she will continue with levothyroxine 100 mcg daily. Patient with anemia of chronic disease. Patient also found to have vitamin B12 deficiency. At discharge she will continue with her iron supplementation daily. Vitamin B12 1000 mg daily provided. Patient with chronic pain. At discharge a limited supply of tramadol 50 mg 1 pill twice daily as needed will be provided. Patient would benefit with chronic pain management referral to further address. Patient with GERD. At discharge patient will continue with Protonix 40 mg daily. Prior to discharge patient will get her Covid vaccine which was due for today. Vital Signs/Physical Exam: Temp Pulse Resp BP Pulse Ox 97.0 F 72 16 141/66 H 97 12/22/20 12:00 12/22/20 12:00 12/22/20 12:00 12/22/20 12:00 12/22/20 12:00 General: Alert, In no apparent distress, Oriented x3, Cooperative HEENT: Atraumatic Neck: Supple Respiratory: Clear to auscultation bilaterally, Normal air movement Cardiovascular: Normal pulses, Regular rate/rhythm Gastrointestinal: Normal bowel sounds, No tenderness, No masses, No rebound, No guarding Musculoskeletal: No erythema, No tenderness, No warmth Integumentary: No tenderness/swelling, No erythema, No warmth, No cyanosis Neurological: Normal speech, Normal strength at 5/5 x4 extr, Normal tone, Normal affect Laboratory Data at Discharge: WBC Cancelled 12/22/20 09:12 Hgb Cancelled 12/22/20 09:12 Hct Cancelled 12/22/20 09:12 Plt Count Cancelled 12/22/20 09:12 PT 11.9 SECONDS (9.5-12.5) 12/22/20 05:40 INR 1.03 12/22/20 05:40 APTT 20.3 SECONDS (24.3-36.9) L 12/22/20 08:05 Sodium 140 mmol/L (136-145) 12/22/20 05:40 Potassium 3.8 mmol/L (3.5-5.1) 12/22/20 05:40 BUN 15 mg/dL (7-18) 12/22/20 05:40 Creatinine 0.97 mg/dL (0.55-1.3) 12/22/20 05:40 Glucose 102 mg/dL (74-106) 12/22/20 05:40 Magnesium 2.2 mg/dL (1.8-2.4) 12/22/20 05:40 Total Bilirubin 0.4 mg/dL (0.2-1.0) 12/22/20 05:40 AST 58 U/L (15-37) H 12/22/20 05:40 ALT 18 U/L (12-78) 12/22/20 05:40 Alkaline Phosphatase 58 U/L (45-117) 12/22/20 05:40 Troponin I < 0.02 ng/mL (0.0-0.045) 12/22/20 13:39 Triglycerides 62 mg/dL (<150) 12/22/20 08:05 Cholesterol 177 mg/dL (<200) 12/22/20 08:05 HDL Cholesterol 66 mg/dL (40-60) H 12/22/20 08:05 Cholesterol/HDL Ratio 2.68 12/22/20 08:05 Home Medications: Buspirone HCl [Buspar] 10 mg PO BID PRN 08/15/16 Trazodone [Desyrel*] 150 mg PO BEDTIME 08/15/16 Aspirin 81 mg PO DAILY 08/03/17 Citalopram Hydrobromide [Citalopram HBr] 20 mg PO DAILY 08/03/17 Clopidogrel Bisulfate [Plavix*] 75 mg PO DAILY 08/03/17 carvediloL [Carvedilol] 3.125 mg PO BID 08/03/17 Ferrous Sulfate [Ferrous Sulfate*] 325 mg PO DAILY 02/15/18 Furosemide [Lasix*] 20 mg PO DAILY 02/15/18 Pantoprazole [Protonix Tab*] 40 mg PO DAILY 02/15/18 Levothyroxine Sodium 1 tab PO DAILY 10/25/19 Pravastatin Sodium 1 tab PO DAILY 10/25/19 Cyanocobalamin (Vitamin B-12) [Vitamin B-12] 1,000 mcg PO DAILY #30 tablet 12/22/20 Sacubitril/Valsartan [Entresto 49 mg-51 mg Tablet] 1 cap PO DAILY 12/22/20 traMADol HCL [Ultram*] 50 mg PO BID PRN #10 tab 12/22/20 New Medications: traMADol HCL [Ultram*] 50 mg PO BID PRN #10 tab PRN Reason: Pain Cyanocobalamin (Vitamin B-12) [Vitamin B-12] 1,000 mcg PO DAILY #30 tablet Physician Discharge Instructions: Patient presented with chest pain. Patient with history of CAD and prior stent. Patient also with pacemaker defibrillator, hypertension, hyperlipidemia and chronic systolic CHF. The patient was seen and evaluated. No significant EKG changes noted. Cardiac enzymes x2 were negative. Patient was seen and evaluated by cardiology. No intervention was required. There was some consideration for heart catheterization but heart catheterization lab was not available. Cardiology recommended that the patient follow-up with her correctional program officer at [facility] within 1 week. Cardiology recommends that heart catheterization in the near future may be required to further evaluate. Patient was educated on CHF as the patient was not following a 1500 cc/day fluid restriction. At discharge she will continue with a 1500 cc/day fluid restriction and low-salt diet. At discharge she will continue with Lasix 20 mg daily. Recommend to monitor her weight daily. If her weight increases by more than 5 pounds she is to contact her correctional program officer for further recommendation. At discharge she will continue with her current medications of aspirin 81 mg daily, Plavix 75 mg daily, carvedilol 3.125 mg 1 pill twice daily, pravastatin 10 mg daily and Entresto 49/51 mg once daily. Education on CHF, hypertension, CAD provided. As recommended above, patient will follow up with cardiology within 1 week for possible future heart catheterization. Patient with depression with anxiety. At discharge she will continue with her medications including BuSpar 10 mg 1 pill twice daily, Celexa 20 mg daily. She also takes trazodone 150 mg at bedtime. Patient with hypothyroidism. At discharge she will continue with levothyroxine 100 mcg daily. Patient with anemia of chronic disease. Patient also found to have vitamin B12 deficiency. At discharge she will continue with her iron supplementation daily. Vitamin B12 1000 mg daily provided. Patient with chronic pain. At discharge a limited supply of tramadol 50 mg 1 pill twice daily as needed will be provided. Patient would benefit with chronic pain management referral to further address. Patient with GERD. At discharge patient will continue with Protonix 40 mg daily. Diet: AHA Activity: Fall precautions Followup: Unknown,U [Primary Care Provider] - Time spent managing pt's care (in minutes): 55
[2020-12-22] MEDS ORDERED: ENOXAPARIN 40 MG/0.4 ML SQ SCH (17:00)
--- NOTE | 2020-12-22 17:01 | EKG ---
Test Date: 2020-12-22 Test Time: 05:36:24 Software Test Analyst: SWG MEASUREMENT RESULTS: Intervals: Rate: 73 [place]: QRSD: 138 QT: 458 QTc: 504 [place]: P: [place]: QRS: -73 T: 56 INTERPRETIVE STATEMENTS: AV sequential or dual chamber electronic pacemaker Compared to ECG 10/25/2019 16:53:17 Ventricular-paced complex(es) or rhythm no longer present Ventricular premature complex(es) no longer present Electronically Signed On 12-22-20 17:00:27 CDT by Brock Aviles
[2020-12-22 17:54] LABS: Urine Appearance CLEAR (Clear); Urine Bilirubin NEGATIVE (Negataive); Urine Blood NEGATIVE (Negative); Urine Color YELLOW (Yellow); Urine Glucose NEGATIVE (Negative); Urine Protein NEGATIVE (Negative); Urine Urobilinogen 0.2 mg/dL (0.2-1.0)
[2020-12-22] MEDS ORDERED: carvediloL 3.125 MG TAB PO SCH (18:00)
[2020-12-22 18:12] LABS: Urine Microscopic Reflex NO UMIC
[2020-12-22] MEDS ORDERED: ATORVASTATIN 40 MG TAB PO SCH (21:00)
[2020-12-22] MEDS ORDERED: TRAZODONE 150 MG TAB PO SCH (21:00)
[2020-12-22] MEDS ORDERED: ATORVASTATIN 10 MG TAB PO SCH (21:00)
[2020-12-23] MEDS ORDERED: LEVOTHYROXINE SOD 0.1 MG TAB PO SCH (06:30)
[2020-12-23] MEDS ORDERED: PANTOPRAZOLE 40MG TABLET PO SCH (07:30)
[2020-12-23] MEDS ORDERED: ASPIRIN 81 MG CHEWABLE TABLET PO SCH (09:00)
[2020-12-23] MEDS ORDERED: FERROUS SULFATE 325 MG TAB PO SCH (09:00)
[2020-12-23] MEDS ORDERED: HOME MED 1 EA UNK (Pravastatin Sodium [Pravastatin Sodium] 10 MG Tablet) PO SCH (09:00)
[2020-12-23] MEDS ORDERED: FUROSEMIDE 20 MG TABLET PO SCH (09:00)
[2020-12-23] MEDS ORDERED: SACUBITRIL/VALSARTAN 49/51 MG TAB PO SCH (09:00)
[2020-12-23] MEDS ORDERED: CITALOPRAM 10 MG TABLET PO SCH (09:00)
[2020-12-23] MEDS ORDERED: HOME MED 1 EA UNK (Citalopram Hydrobromide [Citalopram Hbr] 20 MG Tablet) PO SCH (09:00)
--- NOTE | 2020-12-23 09:02 | ECHO ---
HEIGHT: 5 ft 7 in WEIGHT: 200 lb 0 oz DATE OF STUDY: 12/22/[address]: Bolivar Walters DO 2-DIMENSIONAL: YES M.MODE: YES DOPPLER: YES COLOR FLOW: YES TDS: YES PORTABLE: NO DEFINITY: NO BUBBLE STUDY: NO DIAGNOSIS: CHEST PAIN, HISTORY OF CORONARY ARTERY DISEASE, STENTS, PACEMAKER, CONGESTIVE HEART FAILURE AND HYPERTENSION. CARDIAC HISTORY: CATHERIZATION: YES SURGERY: NO PROSTHETIC VALVE: NO PACEMAKER: YES MEASUREMENTS (cm) DIASTOLIC (NORMALS) SYSTOLIC (NORMALS) IVSd 1.0 (0.6-1.2) LA Diam 3.0 (1.9-4.0) LVEF 52% LVIDd 4.5 (3.5-5.7) LVIDs 3.3 (2.0-3.5) %FS 27% LVPWd 1.0 (0.6-1.2) Ao Diam 2.6 (2.0-3.7) 2 DIMENSIONAL ASSESSMENT: RIGHT ATRIUM: NORMAL LEFT ATRIUM: NORMAL RIGHT VENTRICLE: NORMAL LEFT VENTRICLE: NORMAL TRICUSPID VALVE: NORMAL MITRAL VALVE: NORMAL PULMONIC VALVE: NORMAL AORTIC VALVE: NORMAL PERICARDIAL EFFUSION: NONE AORTIC ROOT: NORMAL LEFT VENTRICULAR WALL MOTION: NORMAL DOPPLER/COLOR FLOW: NORMAL COMMENTS: NORMAL LEFT VENTRICULAR SIZE AND FUNCTION. PERMANENT PACEMAKER IN RIGHT VENTRICLE APEX. NO EFFUSION. TECHNOLOGIST: Rodger ALCANTAR
--- NOTE | 2020-12-27 13:00 | CON ---
Date of Consultation: 12/22/2020 Reason For Consultation: Chest pain. History Of Present Illness: Ms. Tripp is a 70-year-old woman, who actually sees a drum worker at [facility] for CAD and CHF. She has a history of cardiac stent, CHF, COPD, coronary artery dis ease, pacemaker defibrillator, and hypothyroidism. Came in with atypical chest pain that does not ra diate. No nausea, vomiting. Had some diaphoresis. Denied any shortness of breath. Denied any coug h, fever, or chills. Her pain was described as moderate. It was relieved by the time she got to the emergency room. Denied PND, orthopnea, pedal edema, palpitations, or syncope. By the time I saw he r, she has already ruled out for an DC. Allergies: SULFA. Review of Systems: Negative. Social History: Negative. Family History: Noncontributory. Medications: Include aspirin, BuSpar, citalopram, Plavix, iron, Lasix 20 mg daily, Synthroid, Proton ix 40 mg daily, Pravachol, Entresto 49/51 mg, carvedilol. Physical Examination: Vital Signs: Stable. She was afebrile. HEENT: Negative. Neck: Supple without any bruit, lymphadenopathy, JVD, or thyromegaly. Chest: Clear to auscultation and percussion. Cardiac: Revealed a paced rhythm. No murmurs, gallops, or rubs. Abdomen: Benign. Extremities: Revealed no clubbing, cyanosis, or edema. Diagnostic Data: O2 saturation was 95% on room air. Her laboratory evaluations were within normal l imits. Her BNP was slightly elevated at 261. Her LDL was 99. Her HDL cholesterol was 66. EKG with paced rhythm. Chest x-ray was negative. Impression And Plan: Atypical chest pain in a patient with history of coronary artery disease, statu s post stent. She has ruled out for myocardial infarction. EKG showed paced rhythm. Chest x-ray is negative. Troponin is negative. BNP is mildly elevated consistent with chronic congestive heart fa ilure that is probably diastolic. Echocardiogram here is normal without any wall motion abnormalitie s or effusion. I am comfortable with Ms. Tripp going home whenever it is okay with Dr. Walters and e has followup with her drum worker at [facility]. Maybe have her do another stress test in the near futu re. Continue her medical regimen. Her other problems include COPD, pacemaker defibrillator, are sta ble. Her pacemaker defibrillator, which was checked recently and functioning appropriately. SPENCER/NADYA Voice ID: [id number] Report ID: [id number]
== END 2020-12-22 17:27 | disposition home or self-care (01) ==
LOC: ER 05:32 → ERHOLD 07:36 → 2ND 10:59
PROVIDERS: ADMIT Family Medicine; ATTEND Family Medicine
DX: R07.9 Chest pain, unspecified (principal); I25.10 Atherosclerotic heart disease of native coronary artery without angina pectoris; Z95.5 Presence of coronary angioplasty implant and graft; Z95.810 Presence of automatic (implantable) cardiac defibrillator; I11.0 Hypertensive heart disease with heart failure; I50.22 Chronic systolic (congestive) heart failure; Z20.822 Contact with and (suspected) exposure to COVID-19; E53.8 Deficiency of other specified B group vitamins; E78.5 Hyperlipidemia, unspecified; F41.8 Other specified anxiety disorders; G89.29 Other chronic pain; E03.9 Hypothyroidism, unspecified; K21.9 Gastro-esophageal reflux disease without esophagitis; D63.8 Anemia in other chronic diseases classified elsewhere; J44.9 Chronic obstructive pulmonary disease, unspecified; E05.00 Thyrotoxicosis with diffuse goiter without thyrotoxic crisis or storm; D69.6 Thrombocytopenia, unspecified; I25.2 Old myocardial infarction; Z85.820 Personal history of malignant melanoma of skin
CPT/HCPCS: 93005; 93306; 85025; 80048; 36415; 85384; 83735; 82550; 83615; 85610; 80061; 80076; 85730; 84443; 81003; 84484 ×2; 82553; 84439; 82728; 82607; 83540; 83010; 83880; 84466; 71045; U0003; J1650; J7050; 96365; 96375; 99285; G0378

== ENCOUNTER 2021-02-01 06:03 | Day surgery (SDC) | payer OTHER ==
[2021-01-31 11:11] LABS: Hematocrit 34.5 % (36.0-45.0); MPV 8.4 fL (7.6-11.3); RBC Red Blood Cell Count 4.14 M/uL (3.86-4.86)
[2021-01-31 11:24] LABS: Protime INR 0.91
[2021-01-31 11:28] LABS: Potassium 3.5 mmol/L (3.5-5.1)
[2021-02-01] MEDS ORDERED: NA CHLORIDE 0.9% 500 ML ONE ×2 (07:02→09:14)
[2021-02-01] MEDS ORDERED: HEPA 1000U/500MLS 1,000 UNIT/500 ML BAG IV ONE (07:04)
[2021-02-01] MEDS ORDERED: LIDOCAINE 1% 20 ML MDV ONE (07:04)
[2021-02-01] MEDS ORDERED: MIDAZOLAM HCL 2 MG/2 ML INJ ONE (07:13)
[2021-02-01] MEDS ORDERED: NA CHLORIDE 0.9% 50 ML ONE (07:14)
[2021-02-01] MEDS ORDERED: ATROPINE SULF 1 MG/10 ML SYR IV ONE (07:14)
[2021-02-01] MEDS ORDERED: FENTANYL CITR 100 MCG/2 ML ONE (07:14)
[2021-02-01] MEDS ORDERED: ASPIRIN 325 MG TAB ONE (08:08)
[2021-02-01] MEDS ORDERED: PRASUGREL (EFFIENT) 10 MG TAB ONE (08:09)
[2021-02-01] MEDS ORDERED: ONDANSETRON 4 MG/2 ML VIAL ONE (09:13)
[2021-02-01 10:47] VITALS: TEMP 96.7
[2021-02-01 14:45] VITALS: O2SAT 95
[2021-02-01 16:03] VITALS: BP 118/60
--- NOTE | 2021-02-01 19:04 | OP ---
Surgeon: Brock Aviles MD Motor And Chassis Inspector: Mr. José Horn. Reason For Admission: Abnormal stress test. Procedures: Left heart catheterization, selective coronary arteriogram, and primary stent of the fir st obtuse marginal. History Of Present Illness: Ms. Tripp is 70. Has had a history of CAD, status post LAD stent. Also has an AICD, biventricular defibrillator pacemaker. Had a positive stress test. Procedure In Detail: Brought to the phlebotomist medical lab assistant today, prepped and draped in routine sterile fashion. Given Versed and fentanyl for sedation. A 6-Belizean sheath introduced in the right common femoral art niesha successfully using the Seldinger technique and 10 mL of Xylocaine. Angiography there was normal. Angio-Seal was used to close the case. The catheterization procedure started with Jennifer catheter , left and right. She had a normal left main. Her LAD stent was opened. She had a 70% first obtuse marginal. Circumflex itself was small. RCA was large, nondominant, free of disease. We decided to intervene with the OM. An XB3.5 with side-hole was used to cannulate the left main. Angiomax was g iven, bolus and drip. A Gore wire was used to cross the lesion successfully. That was a 0.014 wir e. A 2.25 x 12 Synergy stent was placed at 12 atmospheres with 0% residual. The patient tolerated t he procedure well. There were no complications. Blood Loss: 5 mL. Postoperative Diagnoses: Coronary artery disease, patent LAD stent, status post new OM stent success ful. The patient received Angiomax, Effient, aspirin during the procedure. Anesthesia: Total conscious sedation was 60 minutes. Plan: The patient will be in the hospital for 8 hours after the procedure. She will go home today. She will see me in the office in 2 weeks. SPENCER/NADYA Voice ID: [id number] Report ID: [id number]
== END 2021-02-01 16:01 | disposition home or self-care (01) ==
LOC: CCL 06:03
DX: I25.10 Atherosclerotic heart disease of native coronary artery without angina pectoris (principal); I11.0 Hypertensive heart disease with heart failure; I50.32 Chronic diastolic (congestive) heart failure; I70.213 Atherosclerosis of native arteries of extremities with intermittent claudication, bilateral legs; E78.2 Mixed hyperlipidemia; K21.9 Gastro-esophageal reflux disease without esophagitis; E03.9 Hypothyroidism, unspecified; Z95.5 Presence of coronary angioplasty implant and graft; Z95.810 Presence of automatic (implantable) cardiac defibrillator; Z20.822 Contact with and (suspected) exposure to COVID-19; Z88.2 Allergy status to sulfonamides; Z82.49 Family history of ischemic heart disease and other diseases of the circulatory system
CPT/HCPCS: 80048; 36415; 85610; 85730; 85027; 93454; U0003; C1893; C1760; C1725; C9600; J2250; J3010; J0583; J7040 ×2; J1644; J2405; 85347

== ENCOUNTER 2021-06-27 17:45 | Emergency (ER) | payer OTHER ==
[2021-06-27 18:58] LABS: Absolute Lymphocytes (CBC) 1.5 K/uL (0.7-4.9); Basophils % 0.8 % (0-1.3); Hematocrit 32.3 % (36.0-45.0); Lymphocytes % 28.6 % (15.3-44.8); MPV 7.7 fL (7.6-11.3); RBC Red Blood Cell Count 4.12 M/uL (3.86-4.86)
[2021-06-27 18:59] LABS: Protime INR 0.91
[2021-06-27 19:21] LABS: ALT/SGPT 26 U/L (12-78); AST/SGOT 53 U/L (15-37); Albumin 3.6 g/dL (3.4-5.0); Alkaline Phosphatase 60 U/L (45-117); BUN Blood Urea Nitrogen 17 mg/dL (7-18); Bicarbonate 30 mmol/L (21-32); Bilirubin Direct < 0.1 mg/dL (0-0.2); Bilirubin Total 0.3 mg/dL (0.2-1.0); Glucose Level 99 mg/dL (74-106); Magnesium 2.2 mg/dL (1.8-2.4); NT PRO-BNP 388 pg/mL (<125); Potassium 3.8 mmol/L (3.5-5.1); Protein, Total 6.9 g/dL (6.4-8.2); Sodium Level 142 mmol/L (136-145); Troponin (Emerg Dept Use Only) < 0.02 ng/mL (0.0-0.045)
--- NOTE | 2021-06-27 19:22 | RAD REPORT ---
EXAM DESCRIPTION: RAD - Chest Single View - 06/27/2021 6:38 pm CLINICAL HISTORY: DYSPNEA COMPARISON: No comparisonsChest Pa And Lat (2 Views) dated 1Chest Single View dated ; Chest Single View dated 10/25/2019; Chest Single View dated 03/24/2019; Chest Single View dated 018 FINDINGS: Lines: Pacemaker/ICD. Lungs: No evidence of edema or pneumonia. Pleural: No significant pleural effusions or pneumothorax. Cardiac: The heart size is within normal limits. Bones: No acute fractures. Other: IMPRESSION: No acute cardiopulmonary disease.
--- NOTE | 2021-06-27 20:46 | ER ---
Nurse's Notes [facility] – [place], [place] Name: Maryan Tripp Age: 71 yrs Sex: Female : 1950 Arrival Date: 06/27/2021 Time: 17:59 Bed 26 Private MD: Diagnosis: Dyspnea Presentation: 06/27 18:12 Chief complaint: Patient states: SOB cough. Coronavirus screen: Vaccine status:. Ebola oh Screen: No symptoms or risks identified at this time. Initial Sepsis Screen: Does the patient meet any 2 criteria? No. Patient's initial sepsis screen is negative. Does the patient have a suspected source of infection? No. Patient's initial sepsis screen is negative. Risk Assessment: Do you want to hurt yourself or someone else? Patient reports no desire to harm self or others. Onset of symptoms was June 13, 2021. 18:12 Method Of Arrival: EMS: [facility] oh 18:12 Acuity: BRAYAN 3 oh Triage Assessment: 18:15 General: Appears in no apparent distress. Behavior is calm, cooperative, appropriate oh for age. 18:16 Cardiovascular: Chest pain is located in chest wall. oh Historical: - Allergies: 17:59 Sulfa (Sulfonamide Antibiotics); ss - PMHx: 17:59 cardiac stents; CHF; COPD; Myocardial infarction; Pacemaker; /defibrilator; Thyroid ss problem; - Immunization history:: Client reports receiving the 1st dose of the Covid vaccine. - Social history:: Smoking status: Patient reports the use of cigarette tobacco products, Patient/guardian denies using tobacco. Screenin:18 Abuse screen: Denies threats or abuse. Nutritional screening: No deficits noted. oh Tuberculosis screening: No symptoms or risk factors identified. Fall Risk None identified. Assessment: 18:18 Pain: Complains of pain in chest. Cardiovascular: Reports chest pain, shortness of oh breath, hx of pacemaker, stent x1. 20:13 Reassessment: Patient appears in no apparent distress at this time. General: Appears in sj1 no apparent distress. comfortable, Behavior is calm, cooperative, appropriate for age. Neuro: No deficits noted. Respiratory: No deficits noted. GI: No deficits noted. : No deficits noted. EENT: No deficits noted. Derm: No deficits noted. Musculoskeletal: No deficits noted. Vital Signs: 18:12 BP 136 / 73; Pulse 74; Resp 20; Temp 98.3; Pulse Ox 98% on R/A; oh 20:00 BP 100 / 66; Pulse 70; Resp 20; Temp 98.8(TE); Pulse Ox 99% on R/A; cc4 20:57 BP 133 / 83 LA Sitting (auto/reg); Pulse 70; Resp 18; Temp 98.8(O); Pulse Ox 100% on sj1 R/A; Pain 5/10; 21:15 BP 129 / 66; Pulse 70; Resp 21; Temp 98.1(TE); Pulse Ox 100% on R/A; cc4 ED Course: 17:59 Patient arrived in ED. ss 18:03 Jose Handy PA is PHCP. jr8 18:03 Abelino Gabriel MD is Attending Physician. jr8 18:15 Triage completed. oh 18:17 Arm band placed on left wrist. EKG completed in triage. Results shown to MD. oh 18:38 XRAY Chest (1 view) In Process Unspecified. EDMS 18:53 Inserted saline lock: 22 gauge in right antecubital area, using aseptic technique. oh Blood collected. 20:06 No provider procedures requiring assistance completed. sj1 20:07 Patient has correct armband on for positive identification. Bed in low position. Call sj1 light in reach. Side rails up X 1. 20:12 Isabel Lr, RN is Primary Nurse. cc4 21:15 IV discontinued, intact, bleeding controlled, No redness/swelling at site. Pressure cc4 dressing applied. Administered Medications: No medications were administered Outcome: 20:46 Discharge ordered by MD. jr8 21:15 Discharged to home via wheelchair. cc4 21:15 Condition: improved 21:15 Discharge instructions given to patient, Instructed on discharge instructions, follow up and referral plans. Demonstrated understanding of instructions, follow-up care. 21:42 Patient left the ED. cc4 Signatures: Dispatcher [employer] EDPR Liliya Fraser RN RN Jose Handy PA PA jr8 Isabel Lr, RN RN cc4 Tamara Murrieta RN RN sj1 Jaron Trimble RN RN oh
--- NOTE | 2021-06-27 20:47 | EDPHYS ---
Physician Documentation [facility] Name: Maryan Tripp Age: 71 yrs Sex: Female : 1950 Arrival Date: 06/27/2021 Time: 17:59 Bed 26 Private MD: ED Physician Abelino Gabriel HPI: 06/27 18:59 This 71 yrs old Female presents to ER via EMS with complaints of Chest jr8 Pain/Shortness of Breath. 18:59 The patient or guardian reports chest pain that is located primarily in the substernal jr8 area. Onset: suddenly. The pain does not radiate. Associated signs and symptoms: Pertinent positives: cough, shortness of breath. The chest pain is described as a pressure. Duration: The patient or guardian reports a single episode, that is still ongoing. Modifying factors: The symptoms are alleviated by nothing. the symptoms are aggravated by nothing. The patient has not experienced similar symptoms in the past. The patient has been recently seen by a physician:. This is a 71-year-old female patient that presented to the emergency room with sudden onset of chest pressure that started yesterday with increased shortness of breath. Patient stated that about a week ago she started exhibiting flulike symptoms and called her PCP in which they had put her on a steroid pack and azithromycin. Has completed all with mild improvement but then the chest pain started along with increased shortness of breath. Patient with a history of congestive heart failure, cardiac stents, COPD, OR in the past.. Historical: - Allergies: 17:59 Sulfa (Sulfonamide Antibiotics); ss - PMHx: 17:59 cardiac stents; CHF; COPD; Myocardial infarction; Pacemaker; /defibrilator; Thyroid ss problem; - Immunization history:: Client reports receiving the 1st dose of the Covid vaccine. - Social history:: Smoking status: Patient reports the use of cigarette tobacco products, Patient/guardian denies using tobacco. ROS: 18:59 Eyes: Negative for injury, pain, redness, and discharge, ENT: Negative for injury, jr8 pain, and discharge, Neck: Negative for injury, pain, and swelling, Abdomen/GI: Negative for abdominal pain, nausea, vomiting, diarrhea, and constipation, Back: Negative for injury and pain, MS/Extremity: Negative for injury and deformity, Skin: Negative for injury, rash, and discoloration, Neuro: Negative for headache, weakness, numbness, tingling, and seizure. 18:59 Cardiovascular: Positive for chest pain, Negative for edema, orthopnea, palpitations, paroxysmal nocturnal dyspnea. 18:59 Respiratory: Positive for cough, dyspnea on exertion, shortness of breath. Exam: 18:59 Constitutional: This is a well developed, well nourished patient who is awake, alert, jr8 and in no acute distress. Cardiovascular: Regular rate and rhythm with a normal S1 and S2. No gallops, murmurs, or rubs. Normal PMI, no JVD. No pulse deficits. Respiratory: Lungs have equal breath sounds bilaterally, clear to auscultation and percussion. No rales, rhonchi or wheezes noted. No increased work of breathing, no retractions or nasal flaring. Abdomen/GI: Soft, non-tender, with normal bowel sounds. No distension or tympany. No guarding or rebound. No evidence of tenderness throughout. Back: No spinal tenderness. No costovertebral tenderness. Full range of motion. Skin: Warm, dry with normal turgor. Normal color with no rashes, no lesions, and no evidence of cellulitis. MS/ Extremity: Pulses equal, no cyanosis. Neurovascular intact. Full, normal range of motion. Neuro: Awake and alert, GCS 15, oriented to person, place, time, and situation. Cranial nerves II-XII grossly intact. Motor strength 5/5 in all extremities. Sensory grossly intact. Cerebellar exam normal. Normal gait. Vital Signs: 18:12 BP 136 / 73; Pulse 74; Resp 20; Temp 98.3; Pulse Ox 98% on R/A; oh 20:00 BP 100 / 66; Pulse 70; Resp 20; Temp 98.8(TE); Pulse Ox 99% on R/A; cc4 20:57 BP 133 / 83 LA Sitting (auto/reg); Pulse 70; Resp 18; Temp 98.8(O); Pulse Ox 100% on sj1 R/A; Pain 5/10; 21:15 BP 129 / 66; Pulse 70; Resp 21; Temp 98.1(TE); Pulse Ox 100% on R/A; cc4 MDM: 18:03 Patient medically screened. jr8 20:45 Data reviewed: vital signs, nurses notes, lab test result(s), EKG, radiologic studies, jr8 plain films. Data interpreted: Pulse oximetry: on room air is 99 %. Interpretation: normal. Counseling: I had a detailed discussion with the patient and/or guardian regarding: the historical points, exam findings, and any diagnostic results supporting the discharge/admit diagnosis, lab results, radiology results, the need for outpatient follow up, a family practitioner, to return to the emergency department if symptoms worsen or persist or if there are any questions or concerns that arise at home. ED course: Patient without acute findings on blood work, EKG, chest x-ray. Patient is remained hemodynamically stable and without acute respiratory distress. Pulse oximetry 99% room air. Recommended close follow-up with primary care if she were to worsening point time to come back for further evaluation.. 06/27 18:16 Order name: Basic Metabolic Panel; Complete Time: 19:24 06/27 18:16 Order name: CBC with Diff; Complete Time: 19:08 06/27 18:16 Order name: LFT's; Complete Time: 19:24 8 06/27 18:16 Order name: Magnesium; Complete Time: 19:24 8 06/27 18:16 Order name: NT PRO-BNP; Complete Time: 19:24 8 06/27 18:16 Order name: PT-INR; Complete Time: 19:06 06/27 18:16 Order name: Troponin (emerg Dept Use Only); Complete Time: 19:24 06/27 18:16 Order name: XRAY Chest (1 view); Complete Time: 19:24 06/27 18:16 Order name: EKG; Complete Time: 18:17 06/27 18:16 Order name: Cardiac monitoring; Complete Time: 18:19 06/27 18:16 Order name: EKG - Nurse/Tech; Complete Time: 18:19 06/27 18:16 Order name: IV Saline Lock; Complete Time: 18:52 06/27 20:40 Order name: SARS-COV-2 RT PCR; Complete Time: 20:45 EDMS 06/27 18:16 Order name: Labs collected and sent; Complete Time: 18:52 06/27 18:16 Order name: O2 Per Protocol; Complete Time: 18:20 jr8 06/27 18:16 Order name: O2 Sat Monitoring; Complete Time: 18:20 jr8 Administered Medications: No medications were administered Disposition: 06/28 07:01 Co-signature as Attending Physician, Abelino Gabriel MD I agree with the assessment and rn plan of care. Attestation: The patient's history, exam findings, diagnostics, and a summary of any interventions or procedures was reviewed in detail with Jose CARMONA. Disposition Summary: 06/27/21 20:46 Discharge Ordered Location: Home jr8 Problem: new jr8 Symptoms: have improved jr8 Condition: Stable jr8 Diagnosis - Dyspnea jr8 Followup: jr8 - With: Private Physician - When: 2 - 3 days - Reason: Recheck today's complaints, Continuance of care, Re-evaluation by your physician Discharge Instructions: - Discharge Summary Sheet jr8 - Shortness of Breath, Adult jr8 Forms: - Medication Reconciliation Form jr8 - Thank You Letter jr8 - Antibiotic Education jr8 - Prescription Opioid Use jr8 Signatures: Dispatcher [employer] [facility] Abelino Gabriel MD MD rn Smirch, Shelby RN Jose Vivar PA PA jr8 Tamara Murrieta RN RN sj1 Corrections: (The following items were deleted from the chart) 06/27 19:36 18:17 CORONAVIRUS+ ordered. [facility]
[2021-06-27 21:51] VITALS: O2SAT 100
[2021-06-27 21:52] VITALS: BP 129/66; TEMP 98.1
--- NOTE | 2021-06-28 18:10 | EKG ---
Test Date: 2021-06-27 Test Time: 18:08:21 Cloth Covered Helmet Puller: BENJAMIN MEASUREMENT RESULTS: Intervals: Rate: 75 [place]: 166 QRSD: 116 QT: 440 QTc: 491 Siler: P: 24 [place]: 166 QRS: -74 T: 73 INTERPRETIVE STATEMENTS: Electronic ventricular pacemaker Compared to ECG 12/22/2020 05:36:24 AV dual-paced complex(es) or rhythm no longer present Electronically Signed On 06-28-21 18:06:00 CDT by Brock Aviles
== END 2021-06-27 21:42 | disposition home or self-care (01) ==
LOC: ER 17:45
DX: R06.00 Dyspnea, unspecified (principal); I50.9 Heart failure, unspecified; J44.9 Chronic obstructive pulmonary disease, unspecified; Z20.822 Contact with and (suspected) exposure to COVID-19; Z72.0 Tobacco use; Z95.810 Presence of automatic (implantable) cardiac defibrillator; Z95.818 Presence of other cardiac implants and grafts; Z88.2 Allergy status to sulfonamides
CPT/HCPCS: 93005; 85025; 80048; 36415; 83735; 85610; 80076; 84484; 83880; 71045; 99284; U0003

== ENCOUNTER 2022-06-09 06:30 | Emergency (ER) | payer OTHER ==
--- OUTSIDE RECORDS SUMMARY | 2022-06-09 06:34 | XMS REPORT | Continuity of Care Document ---
:1950 Author Organization [facility] t Address [address] [place] [address] Care Team Providers Name Role Phone JUICE MCMULLEN Primary Care Physician Unavailable TAMMY ARGUETA Attending Clinician Unavailable Juice Mcmullen Attending Clinician Unavailable Navjot [facility], [facility] Attending Clinician Pacemaker/Icd, Adc Attending Clinician Unavailable Omole VEGETABLE TIERJack Attending Clinician Pob, 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 Attending Clinician Unavailable TAMMY ARGUETA Admitting Clinician Unavailable Payers Payer Name Policy Type Policy Number Effective Date Expiration Date S vj MEDICARE PART A [id number] 2014 \T\ B 00:00:00 MEDICAID [facility] [id number] 2021 00:00:00 Problems Condition Condition Condition Status Onset Resolution Last Treating Co mments Source Name Details Category Date Date Treatment Clinician Date Obesity Obesity Disease Active Univers (BMI (BMI 8-16 ity of 30-39.9) 30-39.9) 00:00: [place] [address] Medical Branch Abnormal Abnormal Disease Active Overview: Un natalie sensing of sensing of 8-11 Formattin ity of implantabl implantabl 00:00: g of this [place] e e 00 note Medical cardiovert cardiovert might be Branch er-defibri er-defibri different llator llator from the (ICD), (ICD), original. 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 (implantab [place]im[place]ab [place] Medical cardiovert cardiovert Br anch er-defibri er-defibri llator) in llator) in place place History of History of Disease Active 2015-09 U 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 00:00: [place] arthroplas arthroplas 00 Me dical ty ty Branch Allergies, Adverse Reactions, Alerts Allergy Allergy Status Severity Reaction(s) Onset Inactive Treating Comm ents Source Name Type Date Date Clinician Sulfa Propensi Active Unknown - 2015-09 Does not Uni vers (Sulfona ty to See comments 2-08 remember ity of mide adverse 00:00: it has [place] Antibiot reaction 00 been many Med ical ics) s years ago Branch SULFA Drug Active Unknown-Cmnt 2015-09 Univ ers (SULFONA Class 2-08 ity of MIDE 00:00: [place] ANTIBIOT 00 Medical ICS) Branch Social History Social Habit Start Date Stop Date Quantity Comments Source Exposure to 2022-04-29 2022-05-09 Not sure [facility] SARS-CoV-2 00:00:00 13:54:00 [place] Medical (event) Branch Alcohol intake 2022-04-14 2022-04-14 Current University of 00:00:00 00:00:00 non-drinker of [facility] alcohol (finding) Branch Tobacco use and 2016-08-31 2016-08-31 Smokeless tobacco Un iversity of exposure 00:00:00 00:00:[address] [facility] Sex Ass[birth year] At [birth year] Universit y of 00:00:00 00:00:00 [facility] Smoking Status Start Date Stop Date Source Never smoked tobacco [facility] Medications Ordered Filled Start Stop Current Ordering Indication Dosage Frequency Signature Comments Components Source Medication Medication Date Date Medication? Clinician (SIG) Name Name carvediloL Yes [id number] 3.125mg Take 1 Univers 3.125 mg 8-25 tablet by ity of tablet 00:00: mouth in [place] [address] the Medical morning Branch and 1 tablet in the evening. Take with meals. carvediloL Yes [id number] 3.125mg Take 1 Univers 3.125 mg 8-25 tablet by ity of tablet 00:00: mouth in [place] [address] the Medical morning Branch and 1 tablet in the evening. Take with meals. clopidogreL Yes [id number] TAKE 1 Univers 75 mg 8-25 TABLET ity of tablet 00:00: EVERY DAY [address] aspirin 81 0 Yes 81mg Take 81 mg U nivers mg chewable 8-16 by mouth ity of tablet 14:09: daily. [address] aspirin 81 2021-0 Yes 81mg Take 81 mg U nivers mg chewable 8-16 by mouth ity of tablet 14:09: daily. [address] aspirin 81 2021-0 Yes 81mg Take 81 mg U nivers mg chewable 8-16 by mouth ity of tablet 14:09: daily. [address] sacubitriL- Yes [id number] 1{tbl} Take 1 Univers valsartan 7-26 tablet by ity o f (ENTRESTO) 00:00: mouth in [place] 49-51 mg 00 the Medical tablet morning Branch and 1 tablet in the evening. sacubitriL- 2021-0 Yes [id number] 1{tbl} Take 1 Univers valsartan 7-26 tablet by ity o f (ENTRESTO) 00:00: mouth in [place] 49-51 mg 00 the Medical tablet morning Branch and 1 tablet in the evening. sacubitriL- 2021- Yes [id number] 1{tbl} Take 1 Univers valsartan 7-26 tablet by ity o f (ENTRESTO) 00:00: mouth in [place] 49-51 mg 00 the Medical tablet morning Branch and 1 tablet in the evening. clopidogreL 2021-0 Yes [id number] TAKE 1 Univers 75 mg 7-01 TABLET ity of tablet 00:00: EVERY DAY [place] 00 Medical Branch clopidogreL 2021-0 Yes [id number] TAKE 1 Univers 75 mg 7-01 TABLET ity of tablet 00:00: EVERY DAY [place] 00 Medical Branch clopidogreL 2021-0 2- No [id number] TAKE 1 Univers 75 mg 7-01 08-25 TABLET ity of tablet 00:00: 00:00 EVERY DAY [place] 00 :00 Medical Branch CARVEDILOL 2021-0 Yes [id number] TAKE 1 Univers 3.125 mg 1-05 TABLET ity of tablet 00:00: TWICE [place] 00 DAILY WITH Medical MEALS Branch CARVEDILOL 2021-0 2- No [id number] TAKE 1 Univers 3.125 mg 1-05 08-25 TABLET ity of tablet 00:00: 00:00 TWICE [place] 00 :00 DAILY WITH Medical MEALS Branch pantoprazol 2020-09 Yes 40mg Take 40 mg Univers e 40 mg EC 1-23 by mouth ity o f tablet 14:19: daily. [address] citalopram 2020-09 Yes 20mg Take 20 mg U nivers 20 mg 1-23 by mouth ity of tablet 14:19: daily. [address] busPIRone 2020-09 Yes 10mg Take 10 mg Un natalie 10 mg 1-23 by mouth ity of tablet 14:19: as needed. [address] albuterol 2020-09 Yes Inhale. Unive rs sulfate 1-23 ity of (PROAIR HFA 14:19: [place] [facility] pantoprazol 2020-09 Yes 40mg Take 40 mg Univers e 40 mg EC 1-23 by mouth ity o f tablet 14:19: daily. [address] citalopram 2020-09 Yes 20mg Take 20 mg U nivers 20 mg 1-23 by mouth ity of tablet 14:19: daily. [address] busPIRone 2020-09 Yes 10mg Take 10 mg Un natalie 10 mg 1-23 by mouth ity of tablet 14:19: as needed. [address] albuterol 2020-09 Yes Inhale. Unive rs sulfate 23 ity of (PROAIR HFA 14:19: [place] INHALE) [address] [place] [address] Branch pantoprazol 2020-09 Yes 40mg Take 40 mg Univers e 40 mg EC 23 by mouth ity o f tablet 14:19: daily. [address] Branch citalopram 2020-09 Yes 20mg Take 20 mg U nivers 20 mg 23 by mouth ity of tablet 14:19: daily. [address] Branch busPIRone 2020-09 Yes 10mg Take 10 mg Un natalie 10 mg 23 by mouth ity of tablet 14:19: as needed. [address] albuterol 2020-09 Yes Inhale. Unive rs sulfate 10-16 ity of (PROAIR HFA 14:19: [place] INHALE) [address] [place] [address] Branch acetaminoph 2020-09 Yes [id number] 1{tbl} Take 1 Un natalie en-codeine 1-17 tablet by ity of (TYLENOL-CO 00:00: mouth [place] DEINE #3) 00 every 6 Medical 300-30 mg (six) Branch tablet hours as needed for Pain (scale 4-6) or Pain (scale 7-10) for up to 12 doses. Indication s: acute pain, s-p generator change out acetaminoph 2020-09 Yes [id number] 1{tbl} Take 1 Un natalie en-codeine 1-17 tablet by ity of (TYLENOL-CO 00:00: mouth [place] DEINE #3) 00 every 6 Medical 300-30 mg (six) Branch tablet hours as needed for Pain (scale 4-6) or Pain (scale 7-10) for up to 12 doses. Indication s: acute pain, s-p generator change out acetaminoph 2020-09 Yes [id number] 1{tbl} Take 1 Un natalie en-codeine 1-17 tablet by ity of (TYLENOL-CO 00:00: mouth [place] DEINE #3) 00 every 6 Medical 300-30 mg (six) Branch tablet hours as needed for Pain (scale 4-6) or Pain (scale 7-10) for up to 12 doses. Indication s: acute pain, s-p generator change out doxycycline 2020-09 Yes [id number] 100mg Take 1 Univers 100 mg EC 1-11 tablet by ity o f tablet 00:00: mouth 2 [place] (two) Medical times Branch daily. doxycycline 2020-09 Yes [id number] 100mg Take 1 Univers 100 mg EC 1-11 tablet by ity o f tablet 00:00: mouth 2 [place] (two) Medical times Branch daily. doxycycline 2020-09 Yes [id number] 100mg Take 1 Univers 100 mg EC 1-11 tablet by ity o f tablet 00:00: mouth 2 [place] (two) Medical times Branch daily. FUROSEMIDE 2020-0 Yes [id number] 20mg TAKE 1 Univers 20 mg 4-30 TABLET BY ity of tablet 00:00: MOUTH [place] 00 EVERY Medical MORNING Branch AND EVENING. FUROSEMIDE 2020-0 Yes [id number] 20mg TAKE 1 Univers 20 mg 4-30 TABLET BY ity of tablet 00:00: MOUTH [place] 00 EVERY Medical MORNING Branch AND EVENING. FUROSEMIDE 2020-0 Yes [id number] 20mg TAKE 1 Univers 20 mg 4-30 TABLET BY ity of tablet 00:00: MOUTH [place] 00 EVERY Medical MORNING Branch AND EVENING. pravastatin 2019-0 Yes 40mg Take 40 mg Univers 40 mg 7-09 by mouth ity of tablet 00:00: daily. [place] [facility] pravastatin 2019-0 Yes 40mg Take 40 mg Univers 40 mg 7-09 by mouth ity of tablet 00:00: daily. [place] [facility] pravastatin 2019-0 Yes 40mg Take 40 mg Univers 40 mg 7-09 by mouth ity of tablet 00:00: daily. [place] [facility] traMADOL 2015-09 Yes 50mg Univers (ULTRAM) 2-08 ity of tablet 50 21:38: [place] mg 53 Medical Branch traMADOL 2015-09 Yes 50mg Univers (ULTRAM) 2-08 ity of tablet 50 21:38: [place] mg 53 Medical Branch traMADOL 2015-09 Yes 50mg Univers (ULTRAM) 2-08 ity of tablet 50 21:38: [facility] 53 Medical Branch levothyroxi 2015-09 Yes Donnell fagan ne 0-24 ity of (SYNTHROID) 00:00: [place] 100 mcg 00 Medical tablet Branch levothyroxi 2015-09 Yes Donnell fagan ne 0-24 ity of (SYNTHROID) 00:00: [place] 100 mcg 00 Medical tablet Branch levothyroxi 2015-09 Yes Univer s ne 0-24 ity of (SYNTHROID) 00:00: [place] 100 mcg 00 Medical tablet Branch traZODone Yes at [facility]) 9-20 bedtime. ity of 150 mg 00:00: [place] tablet 00 Medical Branch traZODone Yes at [facility]) 9-20 bedtime. ity of 150 mg 00:00: [place] tablet Medical Branch traZODone Yes at [facility]) 9-20 bedtime. ity of 150 mg 00:00: [place] tablet 00 Medical Branch Plavix Plavix Yes Juice 1 tablet Commo n [facility] Citalopram Citalopram Yes Juice 1 tablet Common Hydrobromid Hydrobromid [facility] e e [facility] Symbicort Symbicort Yes Juice 2 puffs Common Mcmullen [facility] Levothyroxi Levothyroxi Yes Juice 1 tablet Common ne Sodium ne Sodium Mcmullen on an Spi rit empty - [facility] stomach in [facility] Ferrous Ferrous Yes Juice 1 tablet Com mon Sulfate Sulfate [facility] ProAir HFA ProAir HFA Yes Juice 2 puffs as Common Mcmullen needed [facility] BusPIRone BusPIRone Yes Juice 1 tablet Common HCl HCl [facility] Vitamin D3 Vitamin D3 Yes Juice 1 capsule Common Mcmullen [facility] Protonix Protonix Yes Juice 1 tablet C ommon Mcmullen [facility] Trazodone Trazodone Yes Juice 1 tablet Common HCl HCl Mcmullen at bedtime [facility] Trazodone Trazodone Yes Juice take 1 C ommon HCl HCl Mcmullen tablet one Spirit time daily - [facility] at bedtime [facility] Coreg Coreg Yes Juice not Common Mcmullen defined [facility] Furosemide Furosemide Yes Ujice 1 tablet Common Mcmullen [facility] Aspir-81 Aspir-81 Yes Juice 1 tablet C ommon Mcmullen [facility] Pravastatin Pravastatin Yes Juice 1 tablet Common Sodium Sodium Mcmullen [facility] [place] Sulfasalazi Sulfasalazi Yes Juice 2 tablet Common ne ne [facility] Entresto Entresto Yes Juice 1 tablet C ommon [facility] Pantoprazol Pantoprazol Yes Juice 1 tablet Common e Sodium e Sodium [facility] Immunizations Ordered Filled Immunization Date Status Comments Sourc e Immunization Name Name Influenza High Dose 2020-08-30 Completed Unive rsity of 00:00:00 [facility] Influenza High Dose 2020-08-30 Completed Unive rsity of 00:00:00 [facility] Influenza High Dose 2020-08-30 Completed Unive rsity of 00:00:00 [facility] Vital Signs Vital Name Observation Time Observation Value Comments Source Systolic blood 2022-05-09 19:04:00 120 mm[Hg] Univer sity of pressure [facility] Diastolic blood 2022-05-09 19:04:00 66 mm[Hg] Unive rsity of pressure [facility] Heart rate 2022-05-09 19:04:00 78 /min [facility] Body temperature 2022-05-09 19:04:00 35.44 Hermelinda [facility] Respiratory rate 2022-05-09 19:04:00 18 /min [facility] Body height 2022-05-09 19:04:00 170.2 cm [facility] Body weight 2022-05-09 19:04:00 89.495 kg [facility] BMI 2022-05-09 19:04:00 30.90 kg/m2 [facility] Oxygen saturation in 2022-05-09 19:04:00 98 /min [facility] Arterial blood by [facility] Pulse oximetry Branch Procedures This patient has no known procedures. Encounters Start End Encounter Admission Attending Care Care Encounter Source Date/Time Date/Time Type Type Clinicians Facility Department ID 2022-05-26 Outpatient COLBY LY [facility] [id number] Univers 09:35:34 TAMMY ity [facility] 2021-10-19 Outpatient Benedict [facility] [id number] Common 14:27:34 Juice [id number] [facility] 2021-10-19 Outpatient Mcmullen, STLMLC STLMLC [id number] Common 13:53:13 Juice [id number] [facility] 2021-10-19 Outpatient Mcmullen, STLMLC STLMLC [id number] Common 12:39:19 Juice [id number] [facility] 2021-10-19 Outpatient Mcmullen, STLMLC STLMLC [id number] Common 12:37:24 Juice [id number] [facility] 2021-10-19 Outpatient Mcmullen, STLMLC STLMLC [id number] Common 12:36:12 Juice [id number] [facility] 2021-10-19 Outpatient Mcmullen, STLMLC STLMLC [id number] Common 12:11:32 Juice [id number] [facility] 2021-10-19 Outpatient Mcmullen, STLMLC STLMLC [id number] Common 11:14:14 Juice [id number] [facility] 2021-10-19 Outpatient Mcmullen, STLMLC STLMLC [id number] Common 11:02:46 Juice [id number] [facility] 2022-06-05 2022-06-05 ambulatory STLMLC STLMLC [id number] Common 00:00:00 00:00:00 [facility] 2022-05-18 2022-05-18 Refill Navjot, [facility] [id number] Univers 00:00:00 00:00:00 [facility] [id number] ity [place] [id number] PROF[place] [phone] Oh dical NAL [address] [place] [address] 2022-05-18 2022-05-18 Refill Navjot, [facility] [id number] Univers 00:00:00 00:00:00 Chidi SCHAFFER [id number] ity [id number] [phone] Oh dical NAL 9 [facility] 2022-05-15 2022-05-15 ambulatory STLMLC STLMLC [id number] Common 00:00:00 00:00:00 [facility] 2022-05-15 2022-05-15 ambulatory STLMLC STLMLC [id number] Common 00:00:00 00:00:00 [facility] 2022-05-10 2022-05-10 ambulatory STLMLC STLMLC [id number] Common 00:00:00 00:00:00 [facility] 2022-05-09 2022-05-09 Office Navjot, [facility] [id number] Univers 14:00:00 14:21:26 Visit Chidi SCHAFFER [id number] [place] [id number] Bj LAY[place] [id number] [address] 2022-04-17 2022-04-17 ambulatory STLMLC STLMLC [id number] Common 00:00:00 00:00:00 [facility] 2022-04-14 2022-04-14 ambulatory STLMLC STLMLC [id number] Common 00:00:00 00:00:00 [facility] 2021-12-06 2021-12-06 ambulatory STLMLC STLMLC [id number] Common 00:00:00 00:00:00 [facility] 2021-11-30 2021-11-30 ambulatory STLMLC STLMLC [id number] Common 00:00:00 00:00:00 [facility] 2021-11-29 2021-11-29 ambulatory STLMLC STLMLC [id number] Common 00:00:00 00:00:00 [facility] 2021-10-05 2021-10-05 ambulatory STLMLC STLMLC [id number] Common 00:00:00 00:00:00 [facility] 2021-10-05 2021-10-05 ambulatory STLMLC STLMLC [id number] Common 00:00:00 00:00:00 [facility] 2021-09-13 2021-09-13 ambulatory STLMLC STLMLC [id number] Common 00:00:00 00:00:00 [facility] 2021-08-26 2021-08-26 ambulatory STLMLC STLMLC [id number] Common 00:00:00 00:00:00 [facility] 2021-07-04 2021-07-04 ambulatory STLMLC STLMLC [id number] Common 00:00:00 00:00:00 [facility] 2021-06-24 2021-06-24 Outpatient STLMLC STLMLC [id number] Common 00:00:00 00:00:00 [facility] 2021-06-17 2021-06-17 Outpatient STLMLC STLMLC [id number] Common 00:00:00 00:00:00 [facility] 2021-06-17 2021-06-17 Outpatient STLMLC STLMLC [id number] Common 00:00:00 00:00:00 [facility] 2021-06-16 2021-06-16 Outpatient STLMLC STLMLC [id number] Common 00:00:00 00:00:00 [facility] 2021-06-03 2021-06-03 Outpatient STLMLC STLMLC [id number] Common 00:00:00 00:00:00 [facility] 2021-05-12 2021-05-12 Outpatient STLMLC STLMLC [id number] Common 00:00:00 00:00:00 [facility] 2021-04-15 2021-04-15 Outpatient STLMLC STLMLC [id number] Common 00:00:00 00:00:00 [facility] 2021-03-31 2021-03-31 Outpatient STLMLC STLMLC [id number] Common 00:00:00 00:00:00 [facility] 2021-03-31 2021-03-31 Outpatient STLMLC STLMLC [id number] Common 00:00:00 00:00:00 [facility] 2021-02-16 2021-02-16 Outpatient STLMLC STLMLC [id number] Common 00:00:00 00:00:00 [facility] 2020-12-13 2020-12-13 Outpatient STLMLC STLMLC [id number] Common 00:00:00 00:00:00 [facility] 2020-12-01 2020-12-01 Outpatient STLMLC STLMLC [id number] Common 00:00:00 00:00:00 [facility] 2020-12-01 2020-12-01 Outpatient STLMLC STLMLC [id number] Common 00:00:00 00:00:00 [facility] 2020-10-05 2020-10-05 Laboratory Pacemaker/I [facility] [id number] 14:01:57 14:44:53 Only raymond, [facility] [place] [id number] [place] [id number] Professio [phone] nal [address] [place] [address] 2020-10-04 2020-10-04 Telephone Omole, [facility] [id number] 00:00:00 00:00:00 Jack [place] [id number] [place] [id number] Professio [id number] [address] 2020-10-04 2020-10-04 Outpatient STLMLC STLMLC [id number] Common 00:00:00 00:00:00 [facility] 2020-09-06 2020-09-06 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 [facility] [id number] 16:44:57 16:59:57 Visit Lab Main [place] [id number] [place] [id number] Professio [id number] nal 353 [facility] 2020-09-06 2020-09-06 Office Omole, [facility] [id number] 15:43:17 16:28:17 Visit Jack [place] [id number] [place] Grat[place] [id number] Professio [phone] nal 059 [facility] 2020-08-31 2020-08-31 Outpatient STLMLC STLMLC [id number] Common 00:00:00 00:00:00 [facility] 2020-05-14 2020-05-14 [facility] [id number] Common 09:30:00 09:30:[address] [facility] 2020-02-25 2020-02-25 Outpatient [facility] [id number] Common 08:15:00 08:15:[address] [facility] 2020-02-25 2020-02-25 Outpatient [facility] [id number] Common 08:00:00 08:00:[address] [facility] 2020-01-05 2020-01-05 Outpatient [facility] [id number] Common 15:23:00 15:23:[address] [facility] 2019-10-06 2019-10-06 Outpatient [facility] [id number] Common 15:39:00 15:39:[address] [facility] 2019-08-07 2019-08-07 Outpatient [facility] [id number] Common 15:15:00 15:15:[address] [facility] 2019-07-16 2019-07-16 Outpatient [facility] [id number] Common 13:31:00 13:31:[address] [facility] 2019-07-10 2019-07-10 Outpatient [facility] [id number] Common 11:31:00 11:31:[address] [facility] 2019-06-16 2019-06-16 Outpatient [facility] [id number] Common 13:45:00 13:45:[address] [facility] 2019-06-06 2019-06-06 Outpatient [facility] [id number] Common 11:58:00 11:58:[address] [facility] 2019-06-04 2019-06-04 [facility]patient [facility] [id number] Common 11:13:00 11:13:[address] [facility] 2019-06-03 2019-06-03 Outpatient [facility] [id number] Common 11:31:00 11:31:[address] [facility] 2019-04-01 2019-04-01 Outpatient [facility] [id number] Common 13:00:00 13:00:[address] [facility] 2018-12-25 2018-12-25 [facility] [id number] Common 15:45:00 15:45:[address] [facility] Results This patient has no known results.
[2022-06-09 07:19] LABS: Urine Blood Trace-intact (Negative); Urine Glucose Negative (Negative); Urine Protein Negative (Negative); Urine Specific Gravity 1.015 (1.005-1.030); Urine pH 5.5 (5.0-7.0)
[2022-06-09 07:38] LABS: Urine Bacteria <20 /HPF (<20); Urine Mucus Slight /HPF (None Seen); Urine RBC <5 /HPF (None Seen)
[2022-06-09 07:43] LABS: Absolute Lymphocytes (CBC) 1.1 K/uL (0.7-4.9); Hematocrit 30.9 % (36.0-45.0); Lymphocytes % 24.4 % (15.3-44.8); MCV 72.9 fL (80-100); MPV 7.1 fL (7.6-11.3); RBC Red Blood Cell Count 4.24 M/uL (3.86-4.86)
--- NOTE | 2022-06-09 07:44 | RAD REPORT ---
EXAM DESCRIPTION: CT - Head Brain Wo Cont - 06/09/2022 7:29 am CLINICAL HISTORY: dizziness COMPARISON: Head Brain Wo Cont dated 04/11/2017 TECHNIQUE: Axial 5 mm thick images of the head were obtained without IV contrast. All CT scans are performed using dose optimization technique as appropriate and may include automated exposure control or mA/KV adjustment according to patient size. FINDINGS: No intracranial hemorrhage, mass, edema or shift of mid-line structures. No acute infarcti on changes seen. No cortical edema or sulcal effacement. Patient has mild to moderate for age atrophy pattern has not change from 2017. Ventricles are in proportion to volume loss. Chronic ischemic ibrahim ges are minimal. Ventricles are normal. Chronic right-side mastoid opacification similar to 2017. Visualized paranasal sinuses and left masto id air cells are clear of acute finding. No acute bony findings. IMPRESSION: Negative non-contrast CT head examination for acute finding. Above detailed findings are stable from 2017.
[2022-06-09 08:06] LABS: Magnesium 2.5 mg/dL (1.8-2.4); Potassium 3.9 mmol/L (3.5-5.1)
--- NOTE | 2022-06-09 09:04 | EDPHYS ---
Physician Documentation [facility] Name: Maryan Tripp Age: 72 yrs Sex: Female : 1950 Arrival Date: 06/09/2022 Time: 06:39 Bed 15 Private MD: ED Physician Sonu Zuluaga HPI: 06/09 14:12 This 72 yrs old Female presents to ER via EMS with unknown complaint. kdr 14:12 That she has been having difficulty sleeping for the last several months. She has been kdr on trazodone at 300 mg but did not like the way that made her feel and so she has stopped taking it 3 days ago. The past 3 days she has had little or no sleep. . 14:44 Onset: The symptoms/episode began/occurred gradually, 2 month(s) ago. Severity of kdr symptoms: At their worst the symptoms were mild in the emergency department the symptoms are unchanged. The patient has not experienced similar symptoms in the past. The patient has not recently seen a physician. Historical: - Allergies: 06:46 Sulfa (Sulfonamide Antibiotics); kd3 - Home Meds: 06:46 aspirin 81 mg Oral TbEC 1 tab once daily [Active]; kd3 07:00 buspirone 10 mg Oral tab 1 tab 2 times per day [Active]; carvedilol 3.125 mg Oral tab 1 jg9 tab 2 times per day [Active]; citalopram 20 mg tab 1 tab once daily [Active]; levothyroxine 100 mcg tab 1 tab once daily [Active]; lisinopril 2.5 mg Oral tab 1 tab once daily [Active]; Plavix 75 mg Oral tab [Active]; pravastatin 10 mg Oral tab 1 tab once daily [Active]; proair PRN [Active]; Protonix 20 mg Oral TbEC once daily [Active]; sulfasalazine 500 mg Oral tab 1 tab twice daily [Active]; trazodone 150 mg Oral tab 1 tab nightly [Active]; - PMHx: 06:46 cardiac stents; CHF; COPD; Myocardial infarction; Pacemaker; /defibrilator; Thyroid kd3 problem; - Immunization history:: Adult Immunizations up to date. - Social history:: Smoking status: unknown. ROS: 14:44 Constitutional: Negative for fever, chills, and weight loss, Eyes: Negative for injury, kdr pain, redness, and discharge, Neck: Negative for injury, pain, and swelling, Cardiovascular: Negative for chest pain, palpitations, and edema, Respiratory: Negative for shortness of breath, cough, wheezing, and pleuritic chest pain, Abdomen/GI: Negative for abdominal pain, nausea, vomiting, diarrhea, and constipation, Back: Negative for injury and pain, MS/Extremity: Negative for injury and deformity, Skin: Negative for injury, rash, and discoloration, Neuro: Negative for headache, weakness, numbness, tingling, and seizure activity. Psych: Negative for depression, anxiety, suicide ideation, homicidal ideation, and hallucinations, Allergy/Immunology: Negative for hives, rash, and allergies, Endocrine: Negative for neck swelling, polydipsia, polyuria, polyphagia, and marked weight changes. Exam: 15:28 Constitutional: This is a well developed, well nourished patient who is awake, alert, kdr and in no acute distress. Head/Face: Normocephalic, atraumatic. Eyes: Pupils equal round and reactive to light, extra-ocular motions intact. Lids and lashes normal. Conjunctiva and sclera are non-icteric and not injected. Cornea within normal limits. Periorbital areas with no swelling, redness, or edema. Neck: Trachea midline, no thyromegaly or masses palpated, and no cervical lymphadenopathy. Supple, full range of motion without nuchal rigidity, or vertebral point tenderness. No Meningismus. Chest/axilla: Normal chest wall appearance and motion. Nontender with no deformity. No lesions are appreciated. Cardiovascular: Regular rate and rhythm with a normal S1 and S2. No gallops, murmurs, or rubs. Normal PMI, no JVD. No pulse deficits. Respiratory: Lungs have equal breath sounds bilaterally, clear to auscultation and percussion. No rales, rhonchi or wheezes noted. No increased work of breathing, no retractions or nasal flaring. Abdomen/GI: Soft, non-tender, with normal bowel sounds. No distension or tympany. No guarding or rebound. No evidence of tenderness throughout. Back: No spinal tenderness. No costovertebral tenderness. Full range of motion. Skin: Warm, dry with normal turgor. Normal color with no rashes, no lesions, and no evidence of cellulitis. MS/ Extremity: Pulses equal, no cyanosis. Neurovascular intact. Full, normal range of motion. Neuro: Awake and alert, GCS 15, oriented to person, place, time, and situation. Cranial nerves II-XII grossly intact. Motor strength 5/5 in all extremities. Sensory grossly intact. Cerebellar exam normal. Normal gait. Psych: Awake, alert, with orientation to person, place and time. Behavior, mood, and affect are within normal limits. Vital Signs: 06:55 BP 115 / 71; Pulse 76; Resp 16; Temp 98.5; Pulse Ox 100% ; Weight 88.9 kg; Height 5 ft. kd3 7 in. (170.18 cm); Pain 4/10; 07:34 BP 118 / 76; Pulse 73; Resp 16 S; Pulse Ox 99% on R/A; jg9 08:00 BP 122 / 70; Pulse 73; Resp 16 S; Pulse Ox 99% on R/A; jg9 08:30 BP 119 / 69; Pulse 67; Resp 15 S; Pulse Ox 98% on R/A; jg9 09:00 BP 118 / 72; Pulse 70; Resp 16 S; Pulse Ox 97% on R/A; jg9 06:55 Body Mass Index 30.70 (88.90 kg, 170.18 cm) kd3 MDM: 06:43 Patient medically screened. rn 15:28 Data reviewed: vital signs, nurses notes, lab test result(s), radiologic studies. kdr Counseling: I had a detailed discussion with the patient and/or guardian regarding: the historical points, exam findings, and any diagnostic results supporting the discharge/admit diagnosis, lab results, radiology results, the need for outpatient follow up. 06/09 06:45 Order name: CBC with Diff; Complete Time: 08:30 rn 06/09 06:45 Order name: Basic Metabolic Panel; Complete Time: 08:30 rn 06/09 06:45 Order name: CT Head Brain wo Cont; Complete Time: 08:30 rn 06/09 06:45 Order name: Urine Microscopic Only; Complete Time: 08:30 rn 06/09 06:45 Order name: Magnesium; Complete Time: 08:30 rn 06/09 07:19 Order name: Urine Dipstick-Ancillary; Complete Time: 08:30 EDMS 06/09 06:45 Order name: IV Start; Complete Time: 08:10 rn 06/09 06:45 Order name: Urine Dipstick-Ancillary (obtain specimen); Complete Time: 07:22 rn 06/09 06:45 Order name: EKG; Complete Time: 06:45 rn 06/09 06:45 Order name: EKG - Nurse/Tech; Complete Time: 07:12 rn 06/09 06:45 Order name: Cardiac monitoring; Complete Time: 06:56 rn 06/09 06:45 Order name: O2 Sat Monitoring; Complete Time: 06:56 rn Administered Medications: No medications were administered Disposition Summary: 06/09/22 09:03 Discharge Ordered Location: Home kdr Problem: new kdr Symptoms: have improved kdr Condition: Stable kdr Diagnosis - Insomnia kdr - Insomnia, unspecified kdr - UTI/ Urinary tract infection, site not specified kdr Followup: kdr - With: Private Physician - When: 2 - 3 days - Reason: If symptoms return, Further diagnostic work-up, Recheck today's complaints, Continuance of care, Re-evaluation by your physician Discharge Instructions: - Insomnia kdr - Urinary Tract Infection, Adult, [id number] kdr - Discharge Summary Sheet kr3 Forms: - Medication Reconciliation Form kdr - Thank You Letter kdr - Antibiotic Education kdr Prescriptions: - Cipro 500 mg Oral Tablet - take 1 tablet by ORAL route every 12 hours for 7 days; 14 tablet; Refills: 0, kdr Product Selection Permitted Signatures: Dispatcher [employer] Sonu Chaudhari MD MD kdr Abelino Gabriel MD MD rn Doucette, Kyli RN RN kd3 Ebony Morrison RN RN jg9
--- NOTE | 2022-06-09 09:04 | ER ---
Nurse's Notes [facility] Name: Maryan Tripp Age: 72 yrs Sex: Female : 1950 Arrival Date: 06/09/2022 Time: 06:39 Bed 15 Private MD: Diagnosis: Insomnia;Insomnia, unspecified;UTI/ Urinary tract infection, site not specified Presentation: 06/09 06:44 Chief complaint: EMS states: I have had problems sleeping for months and my doctor kd3 increased my trazodone to 300 mg but i didn't like the way that made me feel. i felt very unsteady on my feet and i stopped taking the trazodone 3 days ago. so I've barely slept at all the past 3 nights. Coronavirus screen: Vaccine status: Patient reports receiving the 2nd dose of the covid vaccine. Ebola Screen: No symptoms or risks identified at this time. Initial Sepsis Screen: Does the patient meet any 2 criteria? No. Patient's initial sepsis screen is negative. Does the patient have a suspected source of infection? No. Patient's initial sepsis screen is negative. Risk Assessment: Do you want to hurt yourself or someone else? Patient reports no desire to harm self or others. Onset of symptoms was June 09, 2022. 06:44 Method Of Arrival: EMS: [facility] kd3 06:44 Acuity: BRAYAN 4 kd3 Triage Assessment: 06:46 General: Appears in no apparent distress. Behavior is cooperative. Pain: Complains of kd3 pain in chronic back pain. Historical: - Allergies: 06:46 Sulfa (Sulfonamide Antibiotics); kd3 - Home Meds: 06:46 aspirin 81 mg Oral TbEC 1 tab once daily [Active]; kd3 07:00 buspirone 10 mg Oral tab 1 tab 2 times per day [Active]; carvedilol 3.125 mg Oral tab 1 jg9 tab 2 times per day [Active]; citalopram 20 mg tab 1 tab once daily [Active]; levothyroxine 100 mcg tab 1 tab once daily [Active]; lisinopril 2.5 mg Oral tab 1 tab once daily [Active]; Plavix 75 mg Oral tab [Active]; pravastatin 10 mg Oral tab 1 tab once daily [Active]; proair PRN [Active]; Protonix 20 mg Oral TbEC once daily [Active]; sulfasalazine 500 mg Oral tab 1 tab twice daily [Active]; trazodone 150 mg Oral tab 1 tab nightly [Active]; - PMHx: 06:46 cardiac stents; CHF; COPD; Myocardial infarction; Pacemaker; /defibrilator; Thyroid kd3 problem; - Immunization history:: Adult Immunizations up to date. - Social history:: Smoking status: unknown. Screenin:47 Abuse screen: Denies threats or abuse. Denies injuries from another. Nutritional kd3 screening: No deficits noted. Tuberculosis screening: No symptoms or risk factors identified. Fall Risk None identified. Assessment: 07:00 Reassessment: Patient appears in no apparent distress at this time. No changes from jg9 previously documented assessment. Patient and/or family updated on plan of care and expected duration. Pain level reassessed. Patient is alert, oriented x 3, equal unlabored respirations, skin warm/dry/pink. Patient up to use the bathroom. 08:00 Reassessment: No changes from previously documented assessment. Patient and/or family jg9 updated on plan of care and expected duration. Pain level reassessed. Patient is alert, oriented x 3, equal unlabored respirations, skin warm/dry/pink. 09:00 Reassessment: No changes from previously documented assessment. Patient and/or family jg9 updated on plan of care and expected duration. Pain level reassessed. Patient is alert, oriented x 3, equal unlabored respirations, skin warm/dry/pink. Vital Signs: 06:55 BP 115 / 71; Pulse 76; Resp 16; Temp 98.5; Pulse Ox 100% ; Weight 88.9 kg; Height 5 ft. kd3 7 in. (170.18 cm); Pain 4/10; 07:34 BP 118 / 76; Pulse 73; Resp 16 S; Pulse Ox 99% on R/A; jg9 08:00 BP 122 / 70; Pulse 73; Resp 16 S; Pulse Ox 99% on R/A; jg9 08:30 BP 119 / 69; Pulse 67; Resp 15 S; Pulse Ox 98% on R/A; jg9 09:00 BP 118 / 72; Pulse 70; Resp 16 S; Pulse Ox 97% on R/A; jg9 06:55 Body Mass Index 30.70 (88.90 kg, 170.18 cm) kd3 ED Course: 06:39 Patient arrived in ED. ds4 06:43 Abelino Gabriel MD is Attending Physician. rn 06:44 Mariam Basilio, RN is Primary Nurse. kd3 06:46 Triage completed. kd3 06:46 Arm band placed on right wrist. kd3 06:47 Patient has correct armband on for positive identification. kd3 06:47 No provider procedures requiring assistance completed. kd3 07:04 Attending Physician role handed off by Abelino Gabriel MD kdr 07:04 Sonu Zuluaga MD is Attending Physician. kdr 07:20 Inserted saline lock: 22 gauge in right antecubital area, using aseptic technique. jg9 Blood collected. 07:30 CT Head Brain wo Cont In Process Unspecified. EDMS 08:18 Patient requests liquids. ice water provided. jg9 09:17 IV discontinued. jg9 Administered Medications: No medications were administered Medication: 09:17 VIS not applicable for this client. jg9 Outcome: 09:03 Discharge ordered by . kdr 09:17 Discharged to home via ambulance. jg9 09:17 Condition: stable 09:17 Discharge instructions given to patient, Instructed on discharge instructions, follow up and referral plans. Demonstrated understanding of Prescriptions given X 1. 09:18 Patient left the ED. jg9 Signatures: Dispatcher [employer] EDHI Sonu Zuluaga MD MD [facility] Abelino Gabriel MD MD rn Swanson, Donovan ds4 Mariam Basilio RN RN 3 Ebony Morrison RN RN jg9
--- NOTE | 2022-06-09 12:29 | EKG ---
Test Date: 2022-06-09 Test Time: 07:03:05 Superintendent: JENNY MEASUREMENT RESULTS: Intervals: Rate: 73 [place]: QRSD: 114 QT: 430 QTc: 473 [place]: P: 82 [place]: QRS: -7 T: -48 INTERPRETIVE STATEMENTS: Ventricular-paced rhythm Abnormal ECG Compared to ECG 06/27/2021 18:08:21 No significant changes Electronically Signed On 06-09-22 12:27:49 CDT by Brock Aviles
[2022-06-10 16:40] VITALS: BP 119/69; O2SAT 98
== END 2022-06-09 09:18 | disposition home or self-care (01) ==
LOC: ER 06:30
DX: G47.00 Insomnia, unspecified (principal); N39.0 Urinary tract infection, site not specified; Z95.0 Presence of cardiac pacemaker; Z79.01 Long term (current) use of anticoagulants; Z79.82 Long term (current) use of aspirin
CPT/HCPCS: 36415; 70450; 80048; 81003; 81015; 83735; 85025; 93005; 99284

== ENCOUNTER 2022-06-13 16:02 | Emergency (ER) | payer OTHER ==
--- OUTSIDE RECORDS SUMMARY | 2022-06-13 16:05 | XMS REPORT | Continuity of Care Document ---
:1950 Author Organization [facility] t Address [address] [place] [address] Care Team Providers Name Role Phone JUICE MCMULLEN Primary Care Physician Unavailable TAMMY ARGUETA Attending Clinician Unavailable Juice Mcmullen Attending Clinician Unavailable Navjot [facility], [facility] Attending Clinician Pacemaker/Icd, Adc Attending Clinician Unavailable Omole DIRECTOR OF PROFESSIONAL SERVICES, Jack Yasmani Attending Clinician [phone] Pob, 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 Attending Clinician Unavailable TAMMY ARGUETA Admitting Clinician Unavailable Payers Payer Name Policy Type Policy Number Effective Date Expiration Date S vj MEDICARE PART A [id number] 2014 \T\ B 00:00:00 MEDICAID [facility] [id number] 2021 00:00:00 Problems Condition Condition Condition Status Onset Resolution Last Treating Co mments Source Name Details Category Date Date Treatment Clinician Date Obesity Obesity Disease Active Univers (BMI (BMI 8-16 ity of 30-39.9) 30-39.9) 00:00: [place] [address] Medical Branch Abnormal Abnormal Disease Active Overview: Un natalie sensing of sensing of 8-11 Formattin ity of implantabl implantabl 00:00: g of this [place] e e 00 note Medical cardiovert cardiovert might be Branch er-defibri er-defibri different llator llator from the (ICD), (ICD), original. initial initial Added encounter encounter automatic ally from request for surgery [id number] Chronic Chronic Disease Active Univers systolic systolic 3-26 ity of heart heart 00:00: [place] failure failure 00 Medical Branch Coronary Coronary Disease Active Unive rs artery artery 3-26 ity of disease disease 00:00: [place] involving involving 00 [facility] resighini resighini Branch heart heart without without angina angina [...] Source Exposure to 2022-04-29 2022-05-09 Not sure [facility] SARS-CoV-2 00:00:00 13:54:00 [place] Medical (event) Branch Alcohol intake 2022-04-14 2022-04-14 Current University of 00:00:00 00:00:00 non-drinker of [facility] alcohol (finding) Branch Tobacco use and 2016-08-31 2016-08-31 Smokeless tobacco Un iversity of exposure 00:00:00 00:00:00 non-user [facility] [place] [facility] Sex Ass[birth year] Universit y of 00:00:00 00:00:00 [facility] [place] [facility] Smoking Status Start Date Stop Date Source Never smoked tobacco [facility] Medications Ordered Filled Start Stop Current Ordering Indication Dosage Frequency Signature Comments Components Source Medication Medication Date Date Medication? Clinician (SIG) Name Name carvediloL Yes [id number] 3.125mg Take 1 Univers 3.125 mg 8-25 tablet by ity of tablet 00:00: mouth in [place] [address] the Medical morning Branch and 1 tablet in the evening. Take with meals. carvediloL Yes [id number] 3.125mg Take 1 Univers 3.125 mg 8-25 tablet by ity of tablet 00:00: mouth in [place] [address] the Medical morning Branch and 1 tablet in the evening. Take with meals. clopidogreL Yes [id number] TAKE 1 Univers 75 mg 8-25 TABLET ity of tablet 00:00: EVERY DAY [address] aspirin 81 0 Yes 81mg Take 81 mg U nivers mg chewable 8-16 by mouth ity of tablet 14:09: daily. [address] aspirin 81 2021-0 Yes 81mg Take 81 mg U nivers mg chewable 8-16 by mouth ity of tablet 14:09: daily. [address] aspirin 81 2021-0 Yes 81mg Take 81 mg U nivers mg chewable 8-16 by mouth ity of tablet 14:09: daily. [address] sacubitriL- Yes [id number] 1{tbl} Take 1 Univers valsartan 7-26 tablet by ity o f (ENTRESTO) 00:00: mouth in [place] 49-51 mg 00 the Medical tablet morning Branch and 1 tablet in the evening. sacubitriL- 2021-0 Yes [id number] 1{tbl} Take 1 Univers valsartan 7-26 tablet by ity o f (ENTRESTO) 00:00: mouth in [place] 49-51 mg 00 the Medical tablet morning Branch and 1 tablet in the evening. sacubitriL- 2021- Yes [id number] 1{tbl} Take 1 Univers valsartan 7-26 tablet by ity o f (ENTRESTO) 00:00: mouth in [place] 49-51 mg 00 the Medical tablet morning Branch and 1 tablet in the evening. clopidogreL 2021-0 Yes [id number] TAKE 1 Univers 75 mg 7-01 TABLET ity of tablet 00:00: EVERY DAY [place] 00 Medical Branch clopidogreL 2021-0 Yes [id number] TAKE 1 Univers 75 mg 7-01 TABLET ity of tablet 00:00: EVERY DAY [place] 00 Medical Branch clopidogreL 2021-0 2021- No [id number] TAKE 1 Univers 75 mg 7-01 08-25 TABLET ity of tablet 00:00: 00:00 EVERY DAY [place] 00 :00 Medical Branch CARVEDILOL 0 Yes [id number] TAKE 1 Univers 3.125 mg 1-05 TABLET ity of tablet 00:00: TWICE [place] 00 DAILY WITH Medical MEALS Branch CARVEDILOL 2021-0 2021- No [id number] TAKE 1 Univers 3.125 mg 1-05 08-25 TABLET ity of tablet 00:00: 00:00 TWICE [place] 00 :00 DAILY WITH Medical MEALS Branch pantoprazol 2020-09 Yes 40mg Take 40 mg Univers e 40 mg EC 1-23 by mouth ity o f tablet 14:19: daily. [address] Branch citalopram 2020-09 Yes 20mg Take 20 mg U nivers 20 mg 1-23 by mouth ity of tablet 14:19: daily. [address] Branch busPIRone 2020-09 Yes 10mg Take 10 mg Un natalie 10 mg 1-23 by mouth ity of tablet 14:19: as needed. [address] Branch albuterol 2020-09 Yes Inhale. Unive rs sulfate 1-23 ity of (PROAIR HFA 14:19: [place] [facility] pantop[facility]ol 2020-09 Yes 40mg Take 40 mg Univers e 40 mg EC 1-23 by mouth ity o f tablet 14:19: daily. [address] citalopram 2020-09 Yes 20mg Take 20 mg U nivers 20 mg 1-23 by mouth ity of tablet 14:19: daily. [address] busPIRone 2020-09 Yes 10mg Take 10 mg Un natalie 10 mg 1-23 by mouth ity of tablet 14:19: as needed. [address] albuterol 2020-09 Yes Inhale. Unive rs sulfate 23 ity of (PROAIR HFA 14:19: [place] INHALE) [address] [place] [address] Branch pantoprazol 2020-09 Yes 40mg Take 40 mg Univers e 40 mg EC 23 by mouth ity o f tablet 14:19: daily. [address] Branch citalopram 2020-09 Yes 20mg Take 20 mg U nivers 20 mg 23 by mouth ity of tablet 14:19: daily. [address] Branch busPIRone 2020-09 Yes 10mg Take 10 mg Un natalie 10 mg 23 by mouth ity of tablet 14:19: as needed. [address] albuterol 2020-09 Yes Inhale. Unive rs sulfate -23 ity of (PROAIR HFA 14:19: [place] INHALE) [address] [place] [address] Branch acetaminoph 2020-09 Yes [id number] 1{tbl} Take [...] s-p generator change out doxycycline 2020-09 Yes [id number] 100mg Take 1 Univers 100 mg EC 1-11 tablet by ity o f tablet 00:00: mouth 2 [place] 00 (two) Medical times Branch daily. doxycycline 2020-09 Yes [id number] 100mg Take 1 Univers 100 mg EC 1-11 tablet by ity o f tablet 00:00: mouth 2 [place] 00 (two) Medical times Branch daily. doxycycline 2020-09 Yes [id number] 100mg Take 1 Univers 100 mg EC 1-11 tablet by ity o f tablet 00:00: mouth 2 [place] 00 (two) Medical times Branch daily. FUROSEMIDE 2020-0 Yes [id number] 20mg TAKE 1 Univers 20 mg 4-30 TABLET BY ity of tablet 00:00: MOUTH [place] 00 EVERY Medical MORNING Branch AND EVENING. FUROSEMIDE 2020-0 Yes [id number] 20mg TAKE 1 Univers 20 mg 4-30 TABLET BY ity of tablet 00:00: MOUTH [place] 00 EVERY Medical MORNING Branch AND EVENING. FUROSEMIDE 2020-0 Yes [id number] 20mg TAKE 1 Univers 20 mg 4-30 TABLET BY ity of tablet 00:00: MOUTH [place] 00 EVERY Medical MORNING Branch AND EVENING. pravastatin 0 Yes 40mg Take 40 mg Univers 40 mg 7-09 by mouth ity of tablet 00:00: daily. [place] [facility] pravastatin 2019-0 Yes 40mg Take 40 mg Univers 40 mg 7-09 by mouth ity of tablet 00:00: daily. [place] [facility] pravastatin 2019-0 Yes 40mg Take 40 mg Univers 40 mg 7-09 by mouth ity of tablet 00:00: daily. [place] 00 [facility] traMADOL 2015-09 Yes 50mg Univers (ULTRAM) 2-08 ity of tablet 50 21:38: [place] mg 53 Medical Branch traMADOL 2015-09 Yes 50mg Univers (ULTRAM) 2-08 ity of tablet 50 21:38: [place] mg 53 Medical Branch traMADOL 2015-09 Yes 50mg Univers (ULTRAM) 2-08 ity of tablet 50 21:38: [facility] 53 Medical Branch levothyroxi 2015-09 Yes Univer s ne 0-24 ity of (SYNTHROID) 00:00: [place] 100 mcg 00 Medical tablet Branch levothyroxi 2015-09 Yes Univer s ne 0-24 ity of (SYNTHROID) 00:00: [place] 100 mcg 00 Medical tablet Branch levothyroxi 2015-09 Yes Univer s ne 0-24 ity of (SYNTHROID) 00:00: [place] 100 mcg 00 Medical tablet Branch traZODone Yes at [facility]) 9-20 bedtime. ity of 150 mg 00:00: [place] tablet 00 Medical Branch traZODone Yes at [facility]) 9-20 bedtime. ity of 150 mg 00:00: [place] tablet 00 Medical Branch traZODone Yes at [facility]) 9-20 bedtime. ity of 150 mg 00:00: [place] tablet 00 Medical Branch Plavix Plavix Yes Juice 1 tablet Commo n [facility] Citalopram Citalopram Yes Juice 1 tablet Common Hydrobromid Hydrobromid [facility] Symbicort Symbicort Yes Juice 2 puffs [facility] Levothy[facility]xi Levothyroxi Yes Juice 1 tablet Common ne Sodium ne Sodium Mcmullen on an Spi rit empty - [facility] stomach in [facility] Ferrous Ferrous Yes Juice 1 tablet Com mon Sulfate Sulfate [facility] ProAir HFA ProAir HFA Yes Juice 2 puffs as Common Mcmullen needed [facility] BusPIRone BusPIRone Yes Juice 1 tablet Common HCl HCl [facility] Vitamin D3 Vitamin D3 Yes Juice 1 capsule Common Mcmullen [facility] Protonix Protonix Yes Juice 1 tablet C ommon Mcmullen [facility] Trazodone Trazodone Yes Juice 1 tablet Common HCl HCl Mcmullen at bedtime [facility] Trazodone Trazodone Yes Juice take 1 C ommon HCl HCl Mcmullen tablet one Spirit time daily - [facility] at bedtime [facility] Coreg Coreg Yes Juice not Common Mcmullen defined [facility] Furosemide Furosemide Yes Juice 1 tablet Common Mcmullen [facility] Aspir-81 Aspir-81 Yes Juice 1 tablet C ommon Mcmullen [facility] Pravastatin Pravastatin Yes Juice 1 tablet Common Sodium [facility] Sulfasalazi Sulfasalazi Yes Juice 2 tablet Common ne ne [facility] Entresto Entresto Yes Juice 1 tablet C ommon [facility] Pantoprazol Pantoprazol Yes Juice 1 tablet Common e Sodium e Sodium [facility] Immunizations Ordered Filled Immunization Date Status Comments Sourc e Immunization Name Name Influenza High Dose 2020-08-30 Completed Unive rsity of 00:00:00 [facility] [place] [facility] Influenza High Dose 2020-08-30 Completed Unive rsity of 00:00:00 [facility] [place] [facility] Influenza High Dose 2020-08-30 Completed Unive rsity of 00:00:00 [facility] [place] [facility] Vital Signs Vital Name Observation Time Observation Value Comments Source Systolic blood 2022-05-09 19:04:00 120 mm[Hg] Univer sity of pressure [facility] [place] [facility] Diastolic blood 2022-05-09 19:04:00 66 mm[Hg] Unive rsity of [facility] Heart rate 2022-05-09 19:04:00 78 /min [facility] Body temperature 2022-05-09 19:04:00 35.44 Hermelinda [facility] Respiratory rate 2022-05-09 19:04:00 18 /min [facility] Body height 2022-05-09 19:04:00 170.2 cm [facility] Body weight 2022-05-09 19:04:00 89.495 kg [facility] BMI 2022-05-09 19:04:00 30.90 kg/m2 [facility] Oxygen saturation in 2022-05-09 19:04:00 98 /min [facility] blood by [facility] Pulse oximetry Branch Procedures This patient has no known procedures. Encounters Start End Encounter Admission Attending Care Care Encounter Source Date/Time Date/Time Type Type Clinicians Facility Department ID 2022-05-26 Outpatient COLBY LY [facility] [id number] Univers 09:35:34 TAMMY ity [facility] 2021-10-19 Outpatient Benedict [facility] [id number] Common 14:27:34 Juice [id number] [facility] 2021-10-19 Outpatient Mcmullen, STLMLC STLMLC [id number] Common 13:53:13 Juice [id number] [facility] 2021-10-19 Outpatient Mcmullen, STLMLC STLMLC [id number] Common 12:39:19 Juice [id number] [facility] 2021-10-19 Outpatient Mcmullen, STLMLC STLMLC [id number] Common 12:37:24 Juice [id number] [facility] 2021-10-19 Outpatient Mcmullen, STLMLC STLMLC [id number] Common 12:36:12 Juice [id number] [facility] 2021-10-19 Outpatient Mcmullen, STLMLC STLC [id number] Common 12:11:32 Juice [id number] [facility] 2021-10-19 Outpatient Mcmullen, STLMLC STLC [id number] Common 11:14:14 Juice [id number] [facility] 2021-10-19 Outpatient Mcmullen, STLMLC STLC [id number] Common 11:02:46 Juice [id number] [facility] 2022-06-05 2022-06-05 ambulatory STLMLC STLC [id number] Common 00:00:00 00:00:00 [facility] 2022-05-18 2022-05-18 [facility] [id number] Univers 00:00:00 00:00:00 [facility] [id number] ity of [id number] PROF[place] [id number] Vt dical NAL 9 [facility] 2022-05-18 2022-05-18 [facility] [id number] Univers 00:00:00 00:00:00 [facility] [id number] [id number] [id number] Vt dical NAL 059 [facility] 2022-05-15 2022-05-15 ambulatory STLMLC STLMLC [id number] Common 00:00:00 00:00:00 [facility] 2022-05-15 2022-05-15 ambulatory STLMLC STLMLC [id number] Common 00:00:00 00:00:00 [facility] 2022-05-10 2022-05-10 ambulatory STLMLC STLMLC [id number] Common 00:00:00 00:00:00 [facility] 2022-05-09 2022-05-09 Office Navjot, [facility] [id number] Univers 14:00:00 14:21:26 Visit Chidi [id number] [facility] [id number] Bj LAYNE [id number] [address] 2022-04-17 2022-04-17 ambulatory STLMLC STLMLC [id number] Common 00:00:00 00:00:00 [facility] 2022-04-14 2022-04-14 ambulatory STLMLC STLMLC [id number] Common 00:00:00 00:00:00 [facility] 2021-12-06 2021-12-06 ambulatory STLMLC STLMLC [id number] Common 00:00:00 00:00:00 [facility] 2021-11-30 2021-11-30 ambulatory STLMLC STLMLC [id number] Common 00:00:00 00:00:00 [facility] 2021-11-29 2021-11-29 ambulatory STLMLC STLMLC [id number] Common 00:00:00 00:00:00 [facility] 2021-10-05 2021-10-05 ambulatory STLMLC STLMLC [id number] Common 00:00:00 00:00:00 [facility] 2021-10-05 2021-10-05 ambulatory STLMLC STLMLC [id number] Common 00:00:00 00:00:00 [facility] 2021-09-13 2021-09-13 ambulatory STLMLC STLMLC [id number] Common 00:00:00 00:00:00 [facility] 2021-08-26 2021-08-26 ambulatory STLMLC STLMLC [id number] Common 00:00:00 00:00:00 [facility] 2021-07-04 2021-07-04 ambulatory STLMLC STLMLC [id number] Common 00:00:00 00:00:00 [facility] 2021-06-24 2021-06-24 Outpatient STLMLC STLMLC [id number] Common 00:00:00 00:00:00 [facility] 2021-06-17 2021-06-17 Outpatient STLMLC STLMLC [id number] Common 00:00:00 00:00:00 [facility] 2021-06-17 2021-06-17 Outpatient STLMLC STLMLC [id number] Common 00:00:00 00:00:00 [facility] 2021-06-16 2021-06-16 Outpatient STLMLC STLMLC [id number] Common 00:00:00 00:00:00 [facility] 2021-06-03 2021-06-03 Outpatient STLMLC STLMLC [id number] Common 00:00:00 00:00:00 [facility] 2021-05-12 2021-05-12 Outpatient STLMLC STLMLC [id number] Common 00:00:00 00:00:00 [facility] 2021-04-15 2021-04-15 Outpatient STLMLC STLMLC [id number] Common 00:00:00 00:00:00 [facility] 2021-03-31 2021-03-31 Outpatient STLMLC STLMLC [id number] Common 00:00:00 00:00:00 [facility] 2021-03-31 2021-03-31 Outpatient STLMLC STLMLC [id number] Common 00:00:00 00:00:00 [facility] 2021-02-16 2021-02-16 Outpatient STLMLC STLMLC [id number] Common 00:00:00 00:00:00 [facility] 2020-12-13 2020-12-13 Outpatient STLMLC STLMLC [id number] Common 00:00:00 00:00:00 [facility] 2020-12-01 2020-12-01 Outpatient STLMLC STLMLC [id number] Common 00:00:00 00:00:00 [facility] 2020-12-01 2020-12-01 Outpatient STLMLC STLMLC [id number] Common 00:00:00 00:00:00 [facility] 2020-10-05 2020-10-05 Laboratory Pacemaker/I [facility] [id number] 14:01:57 14:44:53 Only raymond, [facility] Normal [id number] [place] [id number] Professio [id number] nal [address] [place] [address] 2020-10-04 2020-10-04 Outpatient STLMLC STLMLC [id number] Common 00:00:00 00:00:00 [facility] 2020-10-04 2020-10-04 Telephone Omole, [facility] [id number] 00:00:00 00:00:00 Jack Normal [id number] [place] [id number] Professio [id number] nal 059 [facility] 2020-09-06 2020-09-06 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 Cece, [facility] [id number] 16:44:57 16:59:57 Visit Lab Main Normal [id number] [place] [id number] Professio [id number] nal 353 [facility] 2020-09-06 2020-09-06 Office Omole, [facility] [id number] 15:43:17 16:28:17 Visit Jack Normal [id number] [place] [id number] Professio [id number] nal 059 [facility] 2020-08-31 2020-08-31 Outpatient STLMLC STLC [id number] Common 00:00:00 00:00:00 [facility] 2020-05-14 2020-05-14 [facility] [id number] Common 09:30:00 09:30:[place] [address] [facility] 2020-02-25 2020-02-25 [facility] [id number] Common 08:15:00 08:15:00 [place] [address] [facility] 2020-02-25 2020-02-25 [facility] [id number] Common 08:00:00 08:00:00 [place] [address] [facility] 2020-01-05 2020-01-05 [facility] [id number] Common 15:23:00 15:23:00 [place] [address] [facility] 2019-10-06 2019-10-06 [facility] [id number] Common 15:39:00 15:39:00 [place] [address] [facility] 2019-08-07 2019-08-07 [facility] [id number] Common 15:15:00 15:15:00 [place] [address] [facility] 2019-07-16 2019-07-16 [facility] [id number] Common 13:31:00 13:31:00 [place] [address] [facility] 2019-07-10 2019-07-10 [facility] [id number] Common 11:31:00 11:31:00 [place] [address] [facility] 2019-06-16 2019-06-16 [facility] [id number] Common 13:45:00 13:45:00 [place] [address] [facility] 2019-06-06 2019-06-06 [facility] [id number] Common 11:58:00 11:58:00 [place] [address] [facility] 2019-06-04 2019-06-04 [facility] [id number] Common 11:13:00 11:13:00 [place] [address] [facility] 2019-06-03 2019-06-03 [facility] [id number] Common 11:31:00 11:31:00 [place] [address] [facility] 2019-04-01 2019-04-01 [facility] [id number] Common 13:00:00 13:00:00 [place] [address] [facility] 2018-12-25 2018-12-25 [facility] [id number] Common 15:45:00 15:45:00 [place] [address] [facility] Results This patient has no known results.
[2022-06-13 20:24] LABS: Absolute Lymphocytes (CBC) 1.1 K/uL (0.7-4.9); Hematocrit 33.3 % (36.0-45.0); Lymphocytes % 22.8 % (15.3-44.8); MCV 72.3 fL (80-100); MPV 7.5 fL (7.6-11.3); RBC Red Blood Cell Count 4.61 M/uL (3.86-4.86)
[2022-06-13 20:31] LABS: Protime INR 1.04
[2022-06-13 20:43] LABS: SARS-CoV-2 Antigen Rapid Res Negative (Negative)
[2022-06-13 20:55] LABS: ALT/SGPT 18 U/L (12-78); AST/SGOT 45 U/L (15-37); Albumin 3.4 g/dL (3.4-5.0); Alkaline Phosphatase 79 U/L (45-117); BUN Blood Urea Nitrogen 15 mg/dL (7-18); Bicarbonate 25 mmol/L (21-32); Bilirubin Direct 0.1 mg/dL (0-0.2); Bilirubin Total 0.3 mg/dL (0.2-1.0); Glomerular Filtration Rate 52 ml/min (=/>90); Glucose Level 134 mg/dL (74-106); Potassium 3.2 mmol/L (3.5-5.1); Protein, Total 6.9 g/dL (6.4-8.2); Sodium Level 135 mmol/L (136-145); Thyroid Stimulating Hormone 0.243 uIU/mL (0.360-3.740)
[2022-06-13 20:59] LABS: Urine Blood Negative (Negative); Urine Glucose Negative (Negative); Urine Protein Negative (Negative)
[2022-06-13 21:09] LABS: Barbiturates NEGATIVE (NEGATIVE); Benzodiazepines NEGATIVE (NEGATIVE); Cocaine NEGATIVE (NEGATIVE); METHAMPHETAM NEGATIVE (NEGATIVE); Methadone NEGATIVE (NEGATIVE); Opiates NEGATIVE (NEGATIVE); Phencyclidine NEGATIVE (NEGATIVE); THC Cannibis NEGATIVE (NEGATIVE)
[2022-06-13] MEDS ORDERED: DIAZEPAM 5 MG TABLET ONE (22:17)
[2022-06-13] MEDS ORDERED: NA CHLORIDE 0.9% 500 ML ONE (22:18)
--- NOTE | 2022-06-13 22:31 | ER ---
Nurse's Notes [facility] Name: Maryan Tripp Age: 72 yrs Sex: Female : 1950 Arrival Date: 06/13/2022 Time: 16:11 Bed 25 Private MD: Onel Mcmullen Diagnosis: Abnormal results of thyroid function studies;Insomnia due to medical condition;Anxiety disorder due to known physiological condition Presentation: 06/13 16:18 Chief complaint: EMS states: fatigue and dizziness that has been ongoing x 3 week. Pt ss reports that her PCP has been changing up her medications recently and she has not been able to sleep very well. States she feels overwhelmed. Initial Sepsis Screen: Does the patient have a suspected source of infection? No. Patient's initial sepsis screen is negative. Onset of symptoms is unknown. 16:18 Method Of Arrival: EMS: [facility] ss 16:35 Coronavirus screen: Client denies travel out of the [place] in the last 14 days. Ebola ss Screen: Patient denies exposure to infectious person. Patient denies travel to an Ebola-affected area in the 21 days before illness onset. Initial Sepsis Screen: Does the patient meet any 2 criteria? No. Patient's initial sepsis screen is negative. Risk Assessment: Do you want to hurt yourself or someone else? Patient reports no desire to harm self or others. 16:35 Acuity: BRAYAN 3 ss Triage Assessment: 19:30 General: Appears in no apparent distress. comfortable, Behavior is calm, cooperative. kb3 Historical: - Allergies: 16:19 Sulfa (Sulfonamide Antibiotics); ss - Home Meds: 23:03 aspirin 81 mg Oral TbEC 1 tab once daily [Active]; buspirone 10 mg Oral tab 1 tab 2 kb3 times per day [Active]; carvedilol 3.125 mg Oral tab 1 tab 2 times per day [Active]; citalopram 20 mg tab 1 tab once daily [Active]; levothyroxine 100 mcg tab 1 tab once daily [Active]; lisinopril 2.5 mg Oral tab 1 tab once daily [Active]; Plavix 75 mg Oral tab [Active]; pravastatin 10 mg Oral tab 1 tab once daily [Active]; proair PRN [Active]; Protonix 20 mg Oral TbEC once daily [Active]; sulfasalazine 500 mg Oral tab 1 tab twice daily [Active]; trazodone 150 mg Oral tab 1 tab nightly [Active]; - PMHx: 16:19 cardiac stents; CHF; Myocardial infarction; Pacemaker; /defibrilator; COPD; Thyroid ss problem; - Immunization history:: Client reports receiving the 2nd dose of the Covid vaccine. - Social history:: Smoking status: Patient denies any tobacco usage or history of. Screenin:29 Abuse screen: Denies threats or abuse. Denies injuries from another. Nutritional kb3 screening: No deficits noted. Tuberculosis screening: No symptoms or risk factors identified. Fall Risk No fall in past 12 months (0 pts). No secondary diagnosis (0 pts). Ambulatory Aid- None/Bed Rest/Nurse Assist (0 pts). Gait- Normal/Bed Rest/Wheelchair (0 pts) Mental Status- Oriented to own ability (0 pts). Total Fan Fall Scale indicates No Risk (0-24 pts). Assessment: 19:48 General: Re[facility] care of [facility]. Pt is AAO x4, states she has not been able to kb3 sleep in 3 nights. PCP increased trazodone to 300mg QHS which did not help and then prescribed Ambien, which she states also did not help her to sleep. Pt denies pain, states increased anxiety and tremors without sleep. Pain: Denies pain. 21:41 General: Pt resting comfortably, no complaints. kb3 22:15 General: Pt to be discharged when IVF bolus is complete. kb3 Vital Signs: 16:35 BP 135 / 81; Pulse 88; Resp 17; Temp 97.7(O); Pulse Ox 100% on R/A; ss 16:40 Weight 88.9 kg; Height 5 ft. 7 in. (170.18 cm); Pain 7/10; ss 19:29 BP 154 / 80; Pulse 90; Resp 20; Pulse Ox 100% ; kb3 23:00 BP 163 / 76; Pulse 88; Resp 18; Pulse Ox 99% ; kb3 16:40 Body Mass Index 30.70 (88.90 kg, 170.18 cm) ss 16:40 Pt states her back pain is 7/10, is baseline for her. ED Course: 16:11 Patient arrived in ED. am2 16:12 Mcmullen, Onel, DO is Private Physician. am2 16:35 Arm band placed on right wrist. ss 16:37 Triage completed. ss 16:49 Guerline Wall [facility]-C [facility]. snw 16:49 Janett Gonsalez MD is Attending Physician. snw 19:44 Camilla Dick, RN is Primary Nurse. kb3 19:52 Patient has correct armband on for positive identification. Bed in low position. Call kb3 light in reach. Side rails up X2. Warm blanket given. 19:52 No provider procedures requiring assistance completed. kb3 20:30 Inserted saline lock: 22 gauge in right antecubital area, using aseptic technique. ds4 Blood collected. 22:30 Onel Mcmullen DO is Referral Physician. kb 23:05 IV discontinued, intact, bleeding controlled, No redness/swelling at site. kb3 Administered Medications: 22:10 Drug: NS 0.9% 500 ml Route: IV; Rate: bolus; Site: right antecubital; kb3 23:00 Follow up: Response: No adverse reaction; IV Status: Completed infusion; IV Intake: kb3 500ml 22:10 Drug: Valium (diazepam) 5 mg Route: PO; kb3 23:06 Follow up: Response: No adverse reaction kb3 Medication: 19:29 VIS not applicable for this client. kb3 Intake: 23:00 IV: 500ml; Total: 500ml. kb3 Outcome: 22:30 Discharge ordered by . kb 23:04 Discharged to home ambulatory, with friend. kb3 23:04 Condition: good 23:04 Discharge instructions given to patient, Instructed on discharge instructions, follow up and referral plans. medication usage, Demonstrated understanding of instructions, follow-up care, medications, Pt instructed not to take thyroid medication for the next 4 days and to call PCP in a.m. with TSH lab results 23:05 Patient left the ED. kb3 Signatures: Brooklyn Gaming FNP-C FNP-CkGuerline Rankin FNP-C FNP-Liliya Gandhi RN RN Cruz Juarez ds4 Fide Kemp am2 Camilla Dick, RN RN kb3 Corrections: (The following items were deleted from the chart) 16:37 16:18 Chief complaint: EMS states: fatigue and dizziness that has been ongoing x 3 ss week. Pain management doctor is switching medications and patient stated that she has been feeling overwhelmed and depressed. Denies SI/ HI ss
--- NOTE | 2022-06-13 22:31 | EDPHYS ---
Physician Documentation [facility] Name: Maryan Tripp Age: 72 yrs Sex: Female : 1950 Arrival Date: 06/13/2022 Time: 16:11 Bed 25 Private MD: [facility] ED Physician Janett Gonsalez HPI: 06/13 21:56 This 72 yrs old Female presents to ER via EMS with complaints of General Weakness, snw Anxiety. 21:56 Pt states she is anxious, shaky, having palpitations and anxiety, insomnia. Pt called snw the crisis hotline today for help. Denies SI or HI. . Onset: The symptoms/episode began/occurred gradually, 4 day(s) ago, and became persistent. Severity of symptoms: At their worst the symptoms were moderate severe in the emergency department the symptoms have improved mildly. It is unknown whether or not the patient has had similar symptoms in the past. The patient has been recently seen by a physician: The patient has been recently seen at the [facility] Emergency Department, this week, for similar complaints labs were performed, CT scan was performed, was given a prescription for antibiotics, for UTI. Historical: - Allergies: 16:19 Sulfa (Sulfonamide Antibiotics); ss - Home Meds: 23:03 aspirin 81 mg Oral TbEC 1 tab once daily [Active]; buspirone 10 mg Oral tab 1 tab 2 kb3 times per day [Active]; carvedilol 3.125 mg Oral tab 1 tab 2 times per day [Active]; citalopram 20 mg tab 1 tab once daily [Active]; levothyroxine 100 mcg tab 1 tab once daily [Active]; lisinopril 2.5 mg Oral tab 1 tab once daily [Active]; Plavix 75 mg Oral tab [Active]; pravastatin 10 mg Oral tab 1 tab once daily [Active]; proair PRN [Active]; Protonix 20 mg Oral TbEC once daily [Active]; sulfasalazine 500 mg Oral tab 1 tab twice daily [Active]; trazodone 150 mg Oral tab 1 tab nightly [Active]; - PMHx: 16:19 cardiac stents; CHF; Myocardial infarction; Pacemaker; /defibrilator; COPD; Thyroid ss problem; - Immunization history:: Client reports receiving the 2nd dose of the Covid vaccine. - Social history:: Smoking status: Patient denies any tobacco usage or history of. ROS: 19:02 Eyes: Negative for injury, pain, redness, and discharge, ENT: Negative for injury, snw pain, and discharge, Neck: Negative for injury, pain, and swelling, Cardiovascular: Negative for chest pain, palpitations, and edema, Respiratory: Negative for shortness of breath, cough, wheezing, and pleuritic chest pain, Abdomen/GI: Negative for abdominal pain, nausea, vomiting, diarrhea, and constipation, Back: Negative for injury and pain, : Negative for injury, bleeding, discharge, and swelling, MS/Extremity: Negative for injury and deformity, Skin: Negative for injury, rash, and discoloration, Neuro: Negative for headache, weakness, numbness, tingling, and seizure. 19:02 Constitutional: Positive for body aches, fatigue, malaise, poor PO intake. 19:02 Psych: Positive for anxiety, depression, insomnia. Exam: 19:01 Head/Face: Normocephalic, atraumatic. Eyes: Pupils equal round and reactive to light, snw extra-ocular motions intact. Lids and lashes normal. Conjunctiva and sclera are non-icteric and not injected. Cornea within normal limits. Periorbital areas with no swelling, redness, or edema. ENT: Nares patent. No nasal discharge, no septal abnormalities noted. Tympanic membranes are normal and external auditory canals are clear. Oropharynx with no redness, swelling, or masses, exudates, or evidence of obstruction, uvula midline. Mucous membranes moist. Neck: Trachea midline, no thyromegaly or masses palpated, and no cervical lymphadenopathy. Supple, full range of motion without nuchal rigidity, or vertebral point tenderness. No Meningismus. Chest/axilla: Normal chest wall appearance and motion. Nontender with no deformity. No lesions are appreciated. Cardiovascular: Regular rate and rhythm with a normal S1 and S2. No gallops, murmurs, or rubs. Normal PMI, no JVD. No pulse deficits. Respiratory: Lungs have equal breath sounds bilaterally, clear to auscultation and percussion. No rales, rhonchi or wheezes noted. No increased work of breathing, no retractions or nasal flaring. Abdomen/GI: Soft, non-tender, with normal bowel sounds. No distension or tympany. No guarding or rebound. No evidence of tenderness throughout. Back: No spinal tenderness. No costovertebral tenderness. Full range of motion. Skin: Warm, dry with normal turgor. Normal color with no rashes, no lesions, and no evidence of cellulitis. MS/ Extremity: Pulses equal, no cyanosis. Neurovascular intact. Full, normal range of motion. Neuro: Awake and alert, GCS 15, oriented to person, place, time, and situation. Cranial nerves II-XII grossly intact. Motor strength 5/5 in all extremities. Sensory grossly intact. Cerebellar exam normal. Normal gait. 19:01 Constitutional: The patient appears alert, anxious, unkempt, tearful 19:01 Psych: Behavior/mood is anxious, depressed, Affect is calm, Oriented to person, place, time, Patient has no thoughts/intents to harm self or others. Vital Signs: 16:35 BP 135 / 81; Pulse 88; Resp 17; Temp 97.7(O); Pulse Ox 100% on R/A; ss 16:40 Weight 88.9 kg; Height 5 ft. 7 in. (170.18 cm); Pain 7/10; ss 19:29 BP 154 / 80; Pulse 90; Resp 20; Pulse Ox 100% ; kb3 23:00 BP 163 / 76; Pulse 88; Resp 18; Pulse Ox 99% ; kb3 16:40 Body Mass Index 30.70 (88.90 kg, 170.18 cm) ss 16:40 Pt states her back pain is 7/10, is baseline for her. MDM: 16:51 Patient medically screened. snw 06/13 16:50 Order name: SARS RAPID; Complete Time: 20:58 snw 06/13 16:50 Order name: Acetaminophen; Complete Time: 20:58 snw 06/13 16:50 Order name: Basic Metabolic Panel; Complete Time: 20:58 snw 06/13 16:50 Order name: CBC with Diff; Complete Time: 20:26 snw 06/13 16:50 Order name: ETOH Level; Complete Time: 20:58 snw 06/13 16:50 Order name: Hepatic Function; Complete Time: 20:58 snw 06/13 16:50 Order name: PT-INR; Complete Time: 20:58 snw 06/13 16:50 Order name: Ptt, Activated; Complete Time: 20:58 snw 06/13 16:50 Order name: Salicylate; Complete Time: 20:58 snw 06/13 16:50 Order name: Urine Drug Screen; Complete Time: 21:12 snw 06/13 16:50 Order name: TSH; Complete Time: 20:58 snw 06/13 20:59 Order name: Urine Dipstick-Ancillary; Complete Time: 21:12 EDMS 06/13 16:50 Order name: EKG; Complete Time: 16:51 snw 06/13 16:50 Order name: EKG - Nurse/Tech; Complete Time: 20:30 snw 06/13 16:50 Order name: IV Saline Lock; Complete Time: 20:30 snw 06/13 16:50 Order name: Labs collected and sent; Complete Time: 20:30 snw 06/13 16:50 Order name: Suicide Screening ([place]); Complete Time: 23:06 snw 06/13 16:50 Order name: Urine Dipstick-Ancillary (obtain specimen); Complete Time: 21:26 snw EC:25 Rate is 78 beats/min. Rhythm is regular. QRS [place] is Normal. Clinical impression: snw Abnormal EKG without significant change and Paced rhythm. Administered Medications: 22:10 Drug: NS 0.9% 500 ml Route: IV; Rate: bolus; Site: right antecubital; kb3 23:00 Follow up: Response: No adverse reaction; IV Status: Completed infusion; IV Intake: kb3 500ml 22:10 Drug: Valium (diazepam) 5 mg Route: PO; kb3 23:06 Follow up: Response: No adverse reaction kb3 Disposition Summary: 06/13/22 22:30 Discharge Ordered Location: Home kb Condition: Stable kb Diagnosis - Abnormal results of thyroid function studies kb - Insomnia due to medical condition kb - Anxiety disorder due to known physiological condition kb Followup: snw - With: - When: 1 - 2 days - Reason: Recheck today's complaints, Continuance of care, Re-evaluation by your physician Followup: snw - With: Emergency Department - When: As needed - Reason: Worsening of condition Discharge Instructions: - Discharge Summary Sheet snw - Hyperthyroidism snw - Hypothyroidism snw - Thyroid-Stimulating Hormone Test snw Forms: - Medication Reconciliation Form kb - Thank You Letter kb - Antibiotic Education kb - Prescription Opioid Use kb Signatures: Dispatcher [employer] Brooklyn Uribe FNP-C FNP-Guerline Bella FNP-C FNP-Liliya Gandhi, RN RN ss Camilla Dick RN RN kb3
--- NOTE | 2022-06-14 06:31 | EKG ---
Test Date: 2022-06-13 Test Time: 20:22:54 Orchid Grower: AUGUSTINE MEASUREMENT RESULTS: Intervals: Rate: 78 [place]: 166 QRSD: 122 QT: 426 QTc: 485 [place]: P: 28 OH: 166 QRS: -41 T: 72 INTERPRETIVE STATEMENTS: Atrial-sensed ventricular-paced rhythm with occasional premature ventricular complexes Abnormal ECG Compared to ECG 06/09/2022 07:03:05 Ventricular premature complex(es) now present Electronically Signed On 06-14-22 06:31:02 CDT by Brock Aviles
[2022-06-15 07:52] VITALS: TEMP 97.7
[2022-06-15 07:54] VITALS: BP 163/76; O2SAT 99
== END 2022-06-13 23:05 | disposition home or self-care (01) ==
LOC: ER 16:02
DX: F06.4 Anxiety disorder due to known physiological condition (principal); G47.01 Insomnia due to medical condition; R94.6 Abnormal results of thyroid function studies; Z20.822 Contact with and (suspected) exposure to COVID-19; Z95.810 Presence of automatic (implantable) cardiac defibrillator; Z79.82 Long term (current) use of aspirin; Z88.2 Allergy status to sulfonamides
CPT/HCPCS: 93005; 85025; 80048; 36415; 80320; 80329 ×2; 85610; 80076; 85730; 84443; 81003; 80307; 96360; 99284; 87811; J7040

== ENCOUNTER 2023-01-06 10:35 | Inpatient (IN) | payer OTHER ==
--- OUTSIDE RECORDS SUMMARY | 2023-01-06 10:53 | XMS REPORT | Continuity of Care Document ---
:1950 Author Organization [facility] t Address [address] [facility] [address] [place] [address] Care Team Providers Name Role Phone JUICE MCMULLEN Primary Care Physician Unavailable Juice Mcmullen Attending Clinician Unavailable BHAVIN ARGUETA Attending Clinician Unavailable CHIDI FLOWERS Attending Clinician Unavailable Chidi Flowers MD Attending Clinician Doctor Unassigned, [place] Attending Clinician Unavailable Bhavin Argueta MD Attending Clinician 1, [facility] Attending Clinician Unavailable Charlene Clark PA-C Attending Clinician KAMERON HAYES Attending Clinician Unavailable Kameron Laureano Attending Clinician Jack Martínez Attending Clinician [phone] Lorraine Whelan Attending Clinician Pob, 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 Attending Clinician Unavailable Only, Ad[facility] Test Attending Clinician Unavailable YUDITH ROMAN Attending Clinician Unavailable JACK GOSS Attending Clinician Unavailable Pacemaker/Icd, Adc Attending Clinician Unavailable Fac, [facility] Heart Failure Cardio Attending Clinician Unavailabl e Visit, Adc Nurse Attending Clinician Unavailable Tu CONTRERAS, Giacomo Alba Attending Clinician Claire Piña MD Attending Clinician [phone] CLAIRE PIÑA Attending Clinician Unavailable Pc, [facility] Echo Room 1 - Attending Clinician Unavailable Karlene Dill Attending Clinician BHAVIN ARGUETA Admitting Clinician Unavailable Bhavin Argueta MD Admitting Clinician CHIDI FLOWERS Admitting Clinician Unavailable Payers Payer Name Policy Type Policy Number Effective Date Expiration Date S vj MEDICARE PART A [id number] 2014 \T\ B 00:00:00 MEDICAID [place] [id number] 2021 [place] 00:[place]:00 MEDICARE MB [id number] 2014 [facility] NOVITAS 00:00:00 - [facility] MEDICARE MB [id number] 2014 [facility] NOVITAS 00:00:00 - [facility] MEDICARE MB [id number] 2014 [facility] NOVITAS 00:00:00 - [facility] MEDICARE MB [id number] 2014 [facility] NOVITAS 00:00:00 - [facility] MEDICARE MB [id number] 2014 [facility] NOVITAS 00:00:00 - [facility] MEDICARE MB [id number] 2014 [facility] NOVITAS 00:00:00 - [facility] MEDICARE MB [id number] 2014 [facility] NOVITAS 00:00:00 - [facility] MEDICARE MB [id number] 2014 [facility] NOVITAS 00:00:00 - [facility] Problems Condition Condition Condition Status Onset Resolution Last Treating Co mments Source Name Details Category Date Date Treatment Clinician Date Hyperlipid Hyperlipid Disease Active 2023-0 U nivers emia, emia, 3-27 ity [place] unspec[place] Medical hyperlipid hyperlipid Br anch emia type emia type Primary Primary Disease Active Univers hypertensi hypertensi 3-27 it y of on on 00:00: [place] 00 Medical Branch Abdominal Abdominal Disease Active 2021-09 Uni vers pain pain 2-06 ity of 00:00: [place] 00 Medical Branch Chest Chest Disease Active 2021-09 Univers pain, rule pain, rule 2-06 it y of out acute out acute 00:[place] myocardial myocardial 00 Me dical infarction infarction Br anch History of History of Disease Active 2021-09 U nivers mitral mitral 2-06 ity of valve valve 00:00: [place] prolapse prolapse 00 Medica l Branch History of History of Disease Active 2021-09 U nivers implantabl implantabl 2-06 it y of e e 00:00: [place] cardiovert cardiovert 00 Me dical er-defibri er-defibri Br anch llator llator (ICD) (ICD) placement placement Postoperat Postoperat Disease Active 2021-09 U nivers kyree anemia kyree anemia 2-06 it y of due to due to 00:00: [place] acute acute 00 Medical blood loss blood loss Br anch Abnormal Abnormal Disease Active Overview: Un natalie sensing of sensing of 8-11 Formattin ity of implantabl implantabl 00:00: g of this [place] e e 00 note Medical cardiovert cardiovert might be Branch er-defibri er-defibri different llator llator from the (ICD), (ICD), original. 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 8-07 it y of s s 00:00: [place] 00 Medical Branch Lumbar Lumbar Disease Active Univers spondylosi spondylosi 8-07 it y of s s 00:00: [place] 00 Medical Branch Heart Heart Disease Active Univers disease disease 8-07 ity of 00:00: [place] 00 Medical Branch Myofascial Myofascial Disease Active U nivers pain pain 8-07 ity of 00:00: [place] 00 Medical Branch Coronary Coronary Disease Active Unive rs artery artery 3-26 ity of disease disease 00:00: [place] involving involving 00 Medi dany lower [place] Branch heart heart without without angina angina pectoris, pectoris, unspecifie unspecifie d vessel d vessel or lesion or lesion type type History of History of Disease Active 2015-09 U angelers total left total left 2-08 it y of hip hip 00:00: [place] arthroplas arthroplas 00 Me dical ty ty Branch Borderline Borderline Disease Active 2015-09 U nivers hyperlipid hyperlipid 1-23 it y of emia emia 00:00: [place] 00 Medical Branch Compressio Compressio Disease Active 2015-09 U nivers n fracture n fracture 10-16 it y of 00:00: [place] [address] Medical Branch Fall Fall Disease Active 2015-09 Univers 10-16 ity of 00:00: [place] 00 Medical Branch Hypertensi Hypertensi Disease Active 2015-09 U nivers on with on with 10-16 ity of goal to be goal to be [place] 00 Me dical Branch Lung Lung Disease Active 2015-09 Univers nodule nodule 10-16 ity of seen on seen on 00:00: [place] imaging imaging 00 Medical study study Branch Lung mass Lung mass Disease Active 2015-09 Uni vers 10-16 ity of 00:00: [place] 00 Medical Branch Neurogenic Neurogenic Disease Active 2015-09 U baljit syncope syncope 10-16 ity of 00:00: [place] 00 Medical Branch OP OP Disease Active 2015-09 Univers (osteoporo (osteoporo 10-16 it y of sis) sis) 00:00: [place] 00 Medical Branch Subcapital Subcapital Disease Active 2015-09 U angelers fracture fracture 10-16 ity of of femur of femur 00:00: [place] 00 Medical Branch [id number] Other Problem Common chronic [facility] pain - [facility] [id number] Lumbago Problem Commo n with Spirit sciatica, - [facility] left side [facility] [id number] Lumbago Problem Commo n with Spirit sciatica, - [facility] right side [facility] [id number] Stage 3a Problem Comm on chronic Spirit kidney - [facility] disease [facility] [id number] Body mass Problem Com mon index Spirit [BMI] - [facility] 31.0-31.9, [facility] [id number] Other Problem Common obesity Spirit due to - [facility] excess [facility] Hypothyroi Hypothyroi Problem C ommon dism dism [facility] - [facility] Allergic Allergic Problem Commo n rhinitis rhinitis Spirit - [facility] Dizziness Dizziness Problem Com mon [facility] Stented Stented Problem Common coronary coronary Spirit artery artery - [facility] Transient TIA Problem Common ischemic (transient Spir it attack ischemic - [facility] attack) [facility] Internal Internal Problem Commo n hemorrhoid hemorrhoid Sp theresa s s [facility] Headache Head ache Problem Comm on Spirit [facility] [id number] GERD Problem Common without Spirit esophagiti - [facility] s [facility] Insomnia Insomnia Problem Commo n Spirit [facility] [id number] Chronic Problem Commo n systolic Spirit congestive - [facility] heart [facility] Peripheral Peripheral Problem C [facility] vascular vascular Spirit disease disease - [facility] Gastritis Gastritis Problem Com mon [facility] Atheroscle Atheroscle Problem C [facility] rotic rosis of Spirit heart coronary - [facility] disease of artery of lower [place] [facility] coronary heart Medical artery Center without angina pectoris Diverticul Diverticul Problem C [facility] ar disease osis large Sp theresa of colon intestine - [facility] w/o perforatio [facility] n or Medical abscess Center w/o bleeding [id number] Congestive Problem Com mon heart Spirit failure, - CHI unspecifie St d HF [facility] chronicity Medica l , Center unspecifie d heart failure type Vasovagal Vasovagal Problem Com mon syncope syncope [facility] [id number] Biventricu Problem Co mmon lar ICD Spirit (implantab - [facility]I le cardiovert [facility] er-defibri Medica l llator) in Center place [id number] Iron Problem Common deficiency Spirit anemia, - CHI unspecifie St d iron kes deficiency Medica l anemia Center type [id number] Coronary Problem Com mon 107 artery Spirit disease - [facility] involving lower brule [facility] coronary Medical artery of Center lower brule heart with angina pectoris Chronic Acute Problem Common obstructiv chronic Spiri t e obstructiv - CHI pulmonary e St disease pulmonary [facility] disease Medical with Center respirator y distress [id number] Age-relate Problem Com mon d Spirit osteoporos - CHI is without St current [facility] pathologic Medica l al Center fracture Bradycardi Bradycardi Problem C ommon a a Spirit - [facility] [id number] Hypocalcem Problem Comm on ia Spirit - [facility] [id number] Depression Problem Co mmon with Spirit anxiety - [facility] [id number] +5th digit Problem Co mmon eff Spirit 06/24/20*CK - CHI D (chronic kidney [facility] disease) Medical stage 3, Center GFR 30-59 ml/min [id number] Mixed Problem Common hyperlipid Spirit emia [facility] [id number] Moderate Problem Commo n major Spirit depression - [facility] , single [facility] Myocardial Myocardial Problem C ommon infarction infarction Sp theresa [facility] Closed Femur Problem Common fracture fracture [facility] of femur [facility] Allergies, Adverse Reactions, Alerts Allergy Allergy Status [...] Start Date Stop Date Quantity Comments Source History of [facility] - Tobacco Use [facility] Sex Assigned At [facility] theresa - [facility] Exposure to 2022-12-08 2022-12-18 Not sure [facility] SARS-CoV-2 00:00:00 13:14:00 [place] Medical (event) Branch Alcohol intake 2022-12-18 2022-12-18 Current University of 00:00:00 00:00:00 non-drinker of [facility] [place] [facility] alcohol (finding) Branch Tobacco use and 2016-08-31 2016-08-31 Smokeless tobacco Un iversity of exposure 00:00:00 00:00:00 non-user [facility] Smoking Status Start Date Stop Date Source Never smoked tobacco [facility] Medications Ordered Filled Start Stop Current Ordering Indication Dosage Frequency Signature Comments Components Source Medication Medication Date Date Medication? Clinician (SIG) Name Name lisinopriL 2022- No lisinopril Univers 2.5 mg 3-27 -27 2.5 mg ity of tablet 13:36: 00:00 tablet [place] 05 :00 Medical Branch lisinopriL 2022- No lisinopril Univers 2.5 mg 3-27 -27 2.5 mg ity of tablet 13:36: 00:00 tablet [place] 05 :00 Medical Branch aspirin 81 Yes 81mg Take 1 Unive rs mg chewable 3-27 tablet by ity of tablet 13:25: mouth in [place] 00 the Medical morning. Branch busPIRone Yes 10mg Take 1 Univer s 10 mg 3-27 tablet by ity of tablet 13:25: mouth in [place] 00 the Medical morning Branch and 1 tablet in the evening. ferrous Yes 1 tablet Univer s sulfate 325 3-27 ity of mg (65 mg 13:25: [place] iron) EC 00 Medical tablet Branch aspirin 81 Yes 81mg Take 1 Unive rs mg chewable 3-27 tablet by ity of tablet 13:25: mouth in [place] 00 the Medical morning. Branch busPIRone Yes 10mg Take 1 Univer s 10 mg 3-27 tablet by ity of tablet 13:25: mouth in [place] 00 the Medical morning Branch and 1 tablet in the evening. ferrous Yes 1 tablet Univer s sulfate 325 3-27 ity of mg (65 mg 13:25: [place] iron) EC 00 Medical tablet Branch furosemide Yes [id number] 20mg Take 1 Univers 20 mg 3-27 tablet by ity of tablet 00:00: mouth in [place] 00 the Medical morning. Branch sacubitriL- Yes [id number] 1{tbl} Take 1 Univers valsartan 3-27 tablet by ity o f 24-26 mg 00:00: mouth in [place] tablet 00 the Medical morning Branch and 1 tablet in the evening. ezetimibe Yes [id number] 10mg Take 1 Un natalie 10 mg 3-27 tablet by ity of tablet 00:00: mouth in [place] 00 the Medical morning. Branch carvediloL Yes [id number] 3.125mg Take 1 Univers 3.125 mg 3-27 tablet by ity of tablet 00:00: mouth in [place] 00 the Medical morning Branch and 1 tablet in the evening. Take with meals. clopidogreL 2022-0 Yes [id number] TAKE 1 Univers 75 mg 3-27 TABLET ity of tablet 00:00: EVERY DAY [place] [address] Medical Branch furosemide 3-0 Yes [id number] 20mg Take 1 Univers 20 mg 3-27 tablet by ity of tablet 00:00: mouth in [place] [address] the Medical morning. Branch sacubitriL- 2022-0 Yes [id number] 1{tbl} Take 1 Univers valsartan 3-27 tablet by ity o f 24-26 mg 00:00: mouth in [facility] 00 the Medical morning Branch and 1 tablet in the evening. ezetimibe 2022-0 Yes [id number] 10mg Take 1 Un natalie 10 mg 3-27 tablet by ity of tablet 00:00: mouth in [place] [address] the Medical morning. Branch carvediloL 2022-0 Yes [id number] 3.125mg Take 1 Univers 3.125 mg 3-27 tablet by ity of tablet 00:00: mouth in [place] [address] the Medical morning Branch and 1 tablet in the evening. Take with meals. clopidogreL 2022-0 Yes [id number] TAKE 1 Univers 75 mg 3-27 TABLET ity of tablet 00:00: EVERY DAY [place] [address] Medical Branch Zolpidem Zolpidem 2022-0 No 1{table Zolpidem Tartrate 5 Tartrate 5 1-18 t_at_be Tartrate 5 MG MG 00:00: dtime} MG 00 Zolpidem Zolpidem 2022-0 No 1{table Zolpidem Tartrate 5 Tartrate 5 1-18 t_at_be Tartrate 5 MG MG 00:00: dtime} MG 00 Zolpidem Zolpidem 2022-0 No 1{table Zolpidem Tartrate 5 Tartrate 5 1-18 t_at_be Tartrate 5 MG MG 00:00: dtime} MG 00 Zolpidem Zolpidem 2022-0 No 1{table Zolpidem Tartrate 5 Tartrate 5 1-18 t_at_be Tartrate 5 MG MG 00:00: dtime} MG 00 calcitONIN, 2021-09 Yes calcitonin Univers salmon, 200 2-09 (salmon) ity of unit/actuat 08:54: 200 [place] ion nasal 54 unit/actua Medi dany spray tion nasal Branch spray budesonide- 2021-09 Yes 2 puffs Uni vers formoteroL 2-09 ity of (SYMBICORT) 08:54: [place] 160-4.5 54 Medical mcg/actuati Branch on inhaler balsalazide 2021-09 Yes balsalazid Univers 750 mg 2-09 e 750 mg ity of capsule 08:54: capsule [address] Branch aspirin 81 2021-09 Yes 81mg Take 81 mg U nivers mg chewable 2-09 by mouth ity of tablet 08:54: daily. [address] Branch pantoprazol 2021-09 Yes 40mg Take 40 mg Univers e 40 mg EC 2-09 by mouth ity o f tablet 08:54: daily. [address] Branch citalopram 2021-09 Yes 20mg Take 20 mg U nivers 20 mg 2-09 by mouth ity of tablet 08:54: daily. [address] Branch busPIRone 2021-09 Yes 10mg Take 10 mg Un natalie 10 mg 2-09 by mouth ity of tablet 08:54: as needed. [address] Branch albuterol 2021-09 Yes Inhale. Unive rs sulfate 2-09 ity of (PROAIR HFA 08:54: [place] INHALE) [address] [place] [address] aspirin 81 2021-09 Yes 81mg Take 81 mg U nivers mg chewable 2-09 by mouth ity of tablet 08:54: daily. [address] pantoprazol 2021-09 Yes 40mg Take 40 mg Univers e 40 mg EC 2-09 by mouth ity o f tablet 08:54: daily. [address] citalopram 2021-09 Yes 20mg Take 20 mg U nivers 20 mg 2-09 by mouth ity of tablet 08:54: daily. [address] busPIRone 2021-09 Yes 10mg Take 10 mg Un natalie 10 mg 2-09 by mouth ity of tablet 08:54: as needed. [address] albuterol 2021-09 Yes Inhale. Unive rs sulfate 2-09 ity of (PROAIR HFA 08:54: [place] INHALE) [address] [place] [address] sulfaSALAzi 2021-09 Yes 2 tablet Un natalie ne 500 mg 2-09 ity of tablet 08:54: [address] Branch lisinopriL 2021-09 Yes lisinopril U nivers 2.5 mg 2-09 2.5 mg ity of tablet 08:54: tablet [address] Branch meclizine 2021-09 Yes meclizine Uni vers 25 mg 2-09 25 mg ity of tablet 08:54: tablet [address] metroNIDAZO 2021-09 Yes metronidaz Univers LE 500 mg 2-09 ole 500 mg ity of tablet 08:54: tablet [address] Branch ondansetron 2021-09 Yes ondansetro Univers 4 mg tablet 2-09 n HCl 4 mg it y of 08:54: tablet [address] ferrous 2021-09 Yes 1 tablet Univer s sulfate 325 2-09 ity of mg (65 mg 08:54: [place] iron) [facility] Medical tablet Branch Cholecalcif 2021-09 Yes 1 capsule U nivers brenda, 2-09 ity of Vitamin D3, 08:54: [place] 25 mcg Medical (1,000 Branch unit) capsule calcitONIN, 2021-09 Yes calcitonin Univers salmon, 200 2-09 (salmon) ity of unit/actuat 08:54: 200 [place] ion nasal 54 unit/actua Medi dany spray tion nasal Branch spray budesonide- 2021-09 Yes 2 puffs Uni vers formoteroL 2-09 ity of (SYMBICORT) 08:54: [place] 160-4.5 Medical mcg/actuati Branch on inhaler balsalazide 2021-09 Yes balsalazid Univers 750 mg 2-09 e 750 mg ity of capsule 08:54: capsule [address] Branch aspirin 81 2021-09 Yes 81mg Take 81 mg U nivers mg chewable 2-09 by mouth ity of tablet 08:54: daily. [address] Branch pantoprazol 2021-09 Yes 40mg Take 40 mg Univers e 40 mg EC 209 by mouth ity o f tablet 08:54: daily. [address] citalopram 2021-09 Yes 20mg Take 20 mg U nivers 20 mg 2-09 by mouth ity of tablet 08:54: daily. [address] busPIRone 2021-09 Yes 10mg Take 10 mg Un natalie 10 mg 2-09 by mouth ity of tablet 08:54: as needed. [place] [address] Medical Branch albuterol 2021-09 Yes Inhale. Unive rs sulfate 2-09 ity of (PROAIR HFA 08:54: [place] INHALE) Medical Branch sulfaSALAzi 2021-09 Yes 2 tablet Un natalie ne 500 mg 2-09 ity of tablet 08:54: [address] Branch lisinopriL 2021-09 Yes lisinopril U nivers 2.5 mg 2-09 2.5 mg ity of tablet 08:54: tablet [place] [address] Medical Branch meclizine 2021-09 Yes meclizine Uni vers 25 mg 2-09 25 mg ity of tablet 08:54: tablet [address] Branch metroNIDAZO 2021-09 Yes metronidaz Univers LE 500 mg 2-09 ole 500 mg ity of tablet 08:54: tablet [place] [address] Medical Branch ondansetron 2021-09 Yes ondansetro Univers 4 mg tablet 2-09 n HCl 4 mg it y of 08:54: tablet [address] Branch ferrous 2021-09 Yes 1 tablet Univer s sulfate 325 2-09 ity of mg (65 mg 08:54: [place] iron) EC Medical tablet Branch Cholecalcif 2021-09 Yes 1 capsule U nivers brenda, 2-09 ity of Vitamin D3, 08:54: [place] 25 mcg 54 Medical (1,000 Branch unit) capsule calcitONIN, 2021-09 Yes calcitonin Univers salmon, 200 2-09 (salmon) ity of unit/actuat 08:54: 200 [place] ion nasal 54 unit/actua Medi dany spray tion nasal Branch spray budesonide- 2021-09 Yes 2 puffs Uni vers formoteroL 2-09 ity of (SYMBICORT) 08:54: [place] 160-4.5 54 Medical mcg/actuati Branch on inhaler balsalazide 2021-09 Yes balsalazid Univers 750 mg 2-09 e 750 mg ity of capsule 08:54: capsule [place] [address] Medical Branch aspirin 81 2021-09 Yes 81mg Take 81 mg U nivers mg chewable 2-09 by mouth ity of tablet 08:54: daily. [place] [address] Medical Branch pantoprazol 2021-09 Yes 40mg Take 40 mg Univers e 40 mg EC 2-09 by mouth ity o f tablet 08:54: daily. [place] [address] Medical Branch citalopram 2021-09 Yes 20mg Take 20 mg U nivers 20 mg 2-09 by mouth ity of tablet 08:54: daily. [place] [address] Medical Branch busPIRone 2021-09 Yes 10mg Take 10 mg Un natalie 10 mg 2-09 by mouth ity of tablet 08:54: as needed. [address] Branch albuterol 2021-09 Yes Inhale. Unive rs sulfate 2-09 ity of (PROAIR HFA 08:54: [place] INHALE) Medical Branch sulfaSALAzi 2021-09 Yes 2 tablet Un natalie ne 500 mg 2-09 ity of tablet 08:54: [address] Branch lisinopriL 2021-09 Yes lisinopril U nivers 2.5 mg 2-09 2.5 mg ity of tablet 08:54: tablet [address] Branch meclizine 2021-09 Yes meclizine Uni vers 25 mg 2-09 25 mg ity of tablet 08:54: tablet [address] metroNIDAZO 2021-09 Yes metronidaz Univers LE 500 mg 2-09 ole 500 mg ity of tablet 08:54: tablet [address] ondansetron 2021-09 Yes ondansetro Univers 4 mg tablet 2-09 n HCl 4 mg it y of 08:54: tablet [place] [address] Medical Branch ferrous 2021-09 Yes 1 tablet Univer s sulfate 325 2-09 ity of mg (65 mg 08:54: [place] iron) EC 54 Medical tablet Branch Cholecalcif 2021-09 Yes 1 capsule U nivers brenda, 2-09 ity of Vitamin D3, 08:54: [place] 25 mcg 54 Medical (1,000 Branch unit) capsule calcitONIN, 2021-09 Yes calcitonin Univers salmon, 200 2-09 (salmon) ity of unit/actuat 08:54: 200 [place] ion nasal 54 unit/actua Medi dany spray tion nasal Branch spray budesonide- 2021-09 Yes 2 puffs Uni vers formoteroL 2-09 ity of (SYMBICORT) 08:54: [place] 160-4.5 54 Medical mcg/actuati Branch on inhaler balsalazide 2021-09 Yes balsalazid Univers 750 mg 2-09 e 750 mg ity of capsule 08:54: capsule [address] aspirin 81 2021-09 Yes 81mg Take 81 mg U nivers mg chewable 2-09 by mouth ity of tablet 08:54: daily. [address] pantoprazol 2021-09 Yes 40mg Take 40 mg Univers e 40 mg EC 2-09 by mouth ity o f tablet 08:54: daily. [address] citalopram 2021-09 Yes 20mg Take 20 mg U nivers 20 mg 2-09 by mouth ity of tablet 08:54: daily. [address] busPIRone 2021-09 Yes 10mg Take 10 mg Un natalie 10 mg 2-09 by mouth ity of tablet 08:54: as needed. [address] albuterol 2021-09 Yes Inhale. Unive rs sulfate 2-09 ity of (PROAIR HFA 08:54: [place] INHALE) [address] [place] [address] sulfaSALAzi 2021-09 Yes 2 tablet Un natalie ne 500 mg 2-09 ity of tablet 08:54: [address] lisinopriL 2021-09 Yes lisinopril U nivers 2.5 mg 2-09 2.5 mg ity of tablet 08:54: tablet [address] meclizine 2021-09 Yes meclizine Uni vers 25 mg 2-09 25 mg ity of tablet 08:54: tablet [address] metroNIDAZO 2021-09 Yes metronidaz Univers LE 500 mg 2-09 ole 500 mg ity of tablet 08:54: tablet [address] ondansetron 2021-09 Yes ondansetro Univers 4 mg tablet 2-09 n HCl 4 mg it y of 08:54: tablet [address] ferrous 2021-09 Yes 1 tablet Univer s sulfate 325 2-09 ity of mg (65 mg 08:54: [place] iron) EC Medical tablet Branch Cholecalcif 2021-09 Yes 1 capsule U nivers brenda, 2-09 ity of Vitamin D3, 08:54: [place] 25 mcg 54 Medical (1,000 Branch unit) capsule calcitONIN, 2021-09 Yes calcitonin Univers salmon, 200 2-09 (salmon) ity of unit/actuat 08:54: 200 [place] ion nasal 54 unit/actua Medi dany spray tion nasal Branch spray budesonide- 2021-09 Yes 2 puffs Uni vers formoteroL 2-09 ity of (SYMBICORT) 08:54: [place] 160-4.5 54 Medical mcg/actuati Branch on inhaler balsalazide 2021-09 Yes balsalazid Univers 750 mg 2-09 e 750 mg ity of capsule 08:54: capsule [address] Branch pantoprazol 2021-09 Yes 40mg Take 40 mg Univers e 40 mg EC 2-09 by mouth ity o f tablet 08:54: daily. [address] citalopram 2021-09 Yes 20mg Take 20 mg U nivers 20 mg 2-09 by mouth ity of tablet 08:54: daily. [address] albuterol 2021-09 Yes Inhale. Unive rs sulfate 2-09 ity of (PROAIR HFA 08:54: [place] INHALE) [address] [place] [address] Branch sulfaSALAzi 2021-09 Yes 2 tablet Un natalie ne 500 mg 2-09 ity of tablet 08:54: [address] meclizine 2021-09 Yes meclizine Uni vers 25 mg 2-09 25 mg ity of tablet 08:54: tablet [address] metroNIDAZO 2021-09 Yes metronidaz Univers LE 500 mg 2-09 ole 500 mg ity of tablet 08:54: tablet [address] ondansetron 2021-09 Yes ondansetro Univers 4 mg tablet 2-09 n HCl 4 mg it y of 08:54: tablet [address] Cholecalcif 2021-09 Yes 1 capsule U nivers brenda, 2-09 ity of Vitamin D3, 08:54: [place] 25 mcg 54 Medical (1,000 Branch unit) capsule calcitONIN, 2021-09 Yes calcitonin Univers salmon, 200 2-09 (salmon) ity of unit/actuat 08:54: 200 [place] ion nasal 54 unit/actua Medi dany spray tion nasal Branch spray budesonide- 2021-09 Yes 2 puffs Uni vers formoteroL 2-09 ity of (SYMBICORT) 08:54: [place] 160-4.5 54 Medical mcg/actuati Branch on inhaler balsalazide 2021-09 Yes balsalazid Univers 750 mg 2-09 e 750 mg ity of capsule 08:54: capsule [address] Branch pantoprazol 2021-09 Yes 40mg Take 40 mg Univers e 40 mg EC 2-09 by mouth ity o f tablet 08:54: daily. [address] citalopram 2021-09 Yes 20mg Take 20 mg U nivers 20 mg 2-09 by mouth ity of tablet 08:54: daily. [address] albuterol 2021-09 Yes Inhale. Unive rs sulfate 2-09 ity of (PROAIR HFA 08:54: [place] INHALE) [address] [place] [address] sulfaSALAzi 2021-09 Yes 2 tablet Un natalie ne 500 mg 2-09 ity of tablet 08:54: [address] meclizine 2021-09 Yes meclizine Uni vers 25 mg 2-09 25 mg ity of tablet 08:54: tablet [address] metroNIDAZO 2021-09 Yes metronidaz Univers LE 500 mg 2-09 ole 500 mg ity of tablet 08:54: tablet [address] ondansetron 2021-09 Yes ondansetro Univers 4 mg tablet 2-09 n HCl 4 mg it y of 08:54: tablet [address] Branch Cholecalcif 2021-09 Yes 1 capsule U nivers brenda, 2-09 ity of Vitamin D3, 08:54: [place] 25 mcg Medical (1,000 Branch unit) capsule calcitONIN, 2021-09 Yes calcitonin Univers salmon, 200 2-09 (salmon) ity of unit/actuat 08:54: 200 [place] ion nasal 54 unit/actua Medi dany spray tion nasal Branch spray budesonide- 2021-09 Yes 2 puffs Uni vers formoteroL 2-09 ity of (SYMBICORT) 08:54: [place] 160-4.5 54 Medical mcg/actuati Branch on inhaler balsalazide 2021-09 Yes balsalazid Univers 750 mg 2-09 e 750 mg ity of capsule 08:54: capsule [address] aspirin 81 2021-09 Yes 81mg Take 81 mg U nivers mg chewable 2-09 by mouth ity of tablet 08:54: daily. [address] pantoprazol 2021-09 Yes 40mg Take 40 mg Univers e 40 mg EC 2-09 by mouth ity o f tablet 08:54: daily. [address] citalopram 2021-09 Yes 20mg Take 20 mg U nivers 20 mg 2-09 by mouth ity of tablet 08:54: daily. [address] busPIRone 2021-09 Yes 10mg Take 10 mg Un natalie 10 mg 2-09 by mouth ity of tablet 08:54: as needed. [address] albuterol 2021-09 Yes Inhale. Unive rs sulfate 2-09 ity of (PROAIR HFA 08:54: [place] INHALE) [address] [place] [address] aspirin 81 2021-09 Yes 81mg Take 81 mg U nivers mg chewable 2-09 by mouth ity of tablet 08:54: daily. [address] pantoprazol 2021-09 Yes 40mg Take 40 mg Univers e 40 mg EC 2-09 by mouth ity o f tablet 08:54: daily. [address] citalopram 2021-09 Yes 20mg Take 20 mg U nivers 20 mg 2-09 by mouth ity of tablet 08:54: daily. [address] busPIRone 2021-09 Yes 10mg Take 10 mg Un natalie 10 mg 2-09 by mouth ity of tablet 08:54: as needed. [address] albuterol 2021-09 Yes Inhale. Unive rs sulfate 2-09 ity of (PROAIR HFA 08:54: [place] INHALE) [address] [place] [address] aspirin 81 2021-09 Yes 81mg Take 81 mg U nivers mg chewable 2-09 by mouth ity of tablet 08:54: daily. [address] pantoprazol 2021-09 Yes 40mg Take 40 mg Univers e 40 mg EC 2-09 by mouth ity o f tablet 08:54: daily. [address] citalopram 2021-09 Yes 20mg Take 20 mg U nivers 20 mg 2-09 by mouth ity of tablet 08:54: daily. [address] busPIRone 2021-09 Yes 10mg Take 10 mg Un natalie 10 mg 2-09 by mouth ity of tablet 08:54: as needed. [address] albuterol 2021-09 Yes Inhale. Unive rs sulfate 2-09 ity of (PROAIR HFA 08:54: [place] INHALE) [address] [place] [address] sulfaSALAzi 2021-09 Yes 2 tablet Un natalie ne 500 mg 2-09 ity of tablet 08:54: [address] lisinopriL 2021-09 Yes lisinopril U nivers 2.5 mg 2-09 2.5 mg ity of tablet 08:54: tablet [address] meclizine 2021-09 Yes meclizine Uni vers 25 mg 2- 25 mg ity of tablet 08:54: tablet [address] metroNIDAZO 2021-09 Yes metronidaz Univers LE 500 mg 2- ole 500 mg ity of tablet 08:54: tablet [address] ondansetron 2021-09 Yes ondansetro Univers 4 mg tablet 2- n HCl 4 mg it y of 08:54: tablet [address] ferrous 2021-09 Yes 1 tablet Univer s sulfate 325 209 ity of mg (65 mg 08:54: [place] iron) [address] Branch Cholecalcif 2021-09 Yes 1 capsule U nivers brenda, 2-09 ity of Vitamin D3, 08:54: [place] 25 [facility] 54 Medical (1,000 Branch unit) capsule ciprofloxac Yes Univer s in HCl 500 9-16 ity of mg tablet 00:00: [address] ciprofloxac Yes Univer s in HCl 500 9-16 ity of mg tablet 00:00: [address] ciprofloxac 0 Yes Univer s in HCl 500 9-16 ity of mg tablet 00:00: [address] ciprofloxac 0 Yes Univer s in HCl 500 9-16 ity of mg tablet 00:00: [address] ciprofloxac 0 Yes Univer s in HCl 500 9-16 ity of mg tablet 00:00: [address] ciprofloxac 0 Yes Univer s in HCl 500 9-16 ity of mg tablet 00:00: [address] ciprofloxac Yes Univer s in HCl 500 9-16 ity of mg tablet 00:00: [address] zolpidem 5 0 Yes Univers mg tablet 9-14 ity of 00:00: [place] 00 Medical Branch zolpidem 5 2021-0 Yes Univers mg tablet 06-07 ity of 00:00: [place] [facility] zolpidem 5 2021-0 Yes Univers mg tablet 06-07 ity of 00:00: [place] [facility] zolpidem 5 2021-0 Yes Univers mg tablet 06-07 ity of 00:00: [place] [facility] zolpidem 5 2021-0 Yes Univers mg tablet 06-07 ity of 00:00: [place] [facility] zolpidem 5 2021-0 Yes Univers mg tablet 06-07 ity of 00:00: [place] [facility] zolpidem 5 2021-0 Yes Univers mg tablet 06-07 ity of 00:00: [place] [facility] Zolpidem Zolpidem 2021-0 No 1{table Zolpidem Tartrate 5 Tartrate 5 -14 t_at_be Tartrate 5 MG MG 00:00: dtime} MG 00 Zolpidem Zolpidem 2021-0 No 1{table Zolpidem Tartrate 5 Tartrate 5 -14 t_at_be Tartrate 5 MG MG 00:00: dtime} MG 00 Zolpidem Zolpidem 2021-0 No 1{table Zolpidem Tartrate 5 Tartrate 5 -14 t_at_be Tartrate 5 MG MG 00:00: dtime} MG 00 Zolpidem Zolpidem 2021-0 No 1{table Zolpidem Tartrate 5 Tartrate 5 -14 t_at_be Tartrate 5 MG MG 00:00: dtime} MG 00 Zolpidem Zolpidem 2021-0 No 1{table Zolpidem Tartrate 5 Tartrate 5 -14 t_at_be Tartrate 5 MG MG 00:00: dtime} MG 00 carvediloL 2021-0 Yes [id number] 3.125mg Take 1 Univers 3.125 mg 8-25 tablet by ity of tablet 00:00: mouth in [place] [address] the Medical morning Branch and 1 tablet in the evening. Take with meals. carvediloL 0 Yes [id number] 3.125mg Take 1 Univers 3.125 mg 8-25 tablet by ity of tablet 00:00: mouth in [address] morning Branch and 1 tablet in the evening. Take with meals. clopidogreL 2-0 Yes [id number] TAKE 1 Univers 75 mg 8-25 TABLET ity of tablet 00:00: EVERY DAY [place] [facility] carvediloL 2-0 Yes [id number] 3.125mg Take 1 Univers 3.125 mg 8-25 tablet by ity of tablet 00:00: mouth in [address] and 1 tablet in the evening. Take with meals. clopidogreL 2021-0 Yes [id number] TAKE 1 Univers 75 mg 8-25 TABLET ity of tablet 00:00: EVERY DAY [place] [facility] carvediloL 2-0 Yes [id number] 3.125mg Take 1 Univers 3.125 mg 8-25 tablet by ity of tablet 00:00: mouth in [address] and 1 tablet in the evening. Take with meals. clopidogreL 2021-0 Yes [id number] TAKE 1 Univers 75 mg 8-25 TABLET ity of tablet 00:00: EVERY DAY [place] [facility] carvediloL 2-0 Yes [id number] 3.125mg Take 1 Univers 3.125 mg 8-25 tablet by ity of tablet 00:00: mouth in [address] and 1 tablet in the evening. Take with meals. clopidogreL 2021-0 Yes [id number] TAKE 1 Univers 75 mg 8-25 TABLET ity of tablet 00:00: EVERY DAY [address] carvediloL 2-0 Yes [id number] 3.125mg Take 1 Univers 3.125 mg 8-25 tablet by ity of tablet 00:00: mouth in [address] and 1 tablet in the evening. Take with meals. clopidogreL 2021-0 Yes [id number] TAKE 1 Univers 75 mg 8-25 TABLET ity of tablet 00:00: EVERY DAY [address] carvediloL 2022-0 Yes [id number] 3.125mg Take 1 Univers 3.125 mg 8-25 tablet by ity of tablet 00:00: mouth in [address] and 1 tablet in the evening. Take with meals. clopidogreL 2-0 Yes [id number] TAKE 1 Univers 75 mg 8-25 TABLET ity of tablet 00:00: EVERY DAY [address] carvediloL 2022-0 Yes [id number] 3.125mg Take 1 Univers 3.125 mg 8-25 tablet by ity of tablet 00:00: mouth in [address] morning [place] and 1 tablet in the evening. Take with meals. clopidogreL 2021-0 Yes [id number] TAKE 1 Univers 75 mg 8-25 TABLET ity of tablet 00:00: EVERY DAY [address] carvediloL 2021-0 Yes [id number] 3.125mg Take 1 Univers 3.125 mg 8-25 tablet by ity of tablet 00:00: mouth in [address] and 1 tablet in the evening. Take with meals. clopidogreL 2021-0 Yes [id number] TAKE 1 Univers 75 mg 8-25 TABLET ity of tablet 00:00: EVERY DAY [address] carvediloL 2021-0 Yes [id number] 3.125mg Take 1 Univers 3.125 mg 8-25 tablet by ity of tablet 00:00: mouth in [address] and 1 tablet in the evening. Take with meals. clopidogreL 2021-0 Yes [id number] TAKE 1 Univers 75 mg 8-25 TABLET ity of tablet 00:00: EVERY DAY [address] carvediloL 2021-0 Yes [id number] 3.125mg Take 1 Univers 3.125 mg 8-25 tablet by ity of tablet 00:00: mouth in [address] and 1 tablet in the evening. Take with meals. clopidogreL 2021-0 Yes [id number] TAKE 1 Univers 75 mg 8-25 TABLET ity of tablet 00:00: EVERY DAY [address] carvediloL 2021-0 2022- No [id number] 3.125mg Take 1 Univers 3.125 mg 8-25 03-27 tablet by ity o f tablet 00:00: 00:00 mouth in [place] 00 :00 [facility] and 1 tablet in the evening. Take with meals. clopidogreL 2021-0 2022- No [id number] TAKE 1 Univers 75 mg 8-25 03-27 TABLET ity of tablet 00:00: 00:00 EVERY DAY [place] 00 :00 [facility] carvediloL 2021-0 3- No [id number] 3.125mg Take 1 Univers 3.125 mg 8-25 03-27 tablet by ity o f tablet 00:00: 00:00 mouth in [place] 00 :00 the Medical morning Branch and 1 tablet in the evening. Take with meals. clopidogreL 2021-0 2022- No [id number] TAKE 1 Univers 75 mg 8-25 03-27 TABLET ity of tablet 00:00: 00:00 EVERY DAY [place] 00 :00 Medical [place] aspirin 81 2021-0 Yes 81mg Take 81 mg U nivers mg chewable 8-16 by mouth ity of tablet 14:09: daily. [address] aspirin 81 2021-0 Yes 81mg Take 81 mg U nivers mg chewable 8-16 by mouth ity of tablet 14:09: daily. [address] aspirin 81 2021-0 Yes 81mg Take 81 mg U nivers mg chewable 8-16 by mouth ity of tablet 14:09: daily. [address] aspirin 81 2021-0 Yes 81mg Take 81 mg U nivers mg chewable 8-16 by mouth ity of tablet 14:09: daily. [address] aspirin 81 2021-0 Yes 81mg Take 81 mg U nivers mg chewable 8-16 by mouth ity of tablet 14:09: daily. [address] aspirin 81 2021-0 Yes 81mg Take 81 mg U nivers mg chewable 8-16 by mouth ity of tablet 14:09: daily. [address] aspirin 81 2021-0 Yes 81mg Take 81 mg U nivers mg chewable 8-16 by mouth ity of tablet 14:09: daily. [address] sacubitriL- 2021-0 Yes [id number] 1{tbl} Take 1 Univers valsartan 7-26 tablet by ity o f (ENTRESTO) 00:00: mouth in [place] as 49-51 mg 00 the Medical tablet morning Branch and 1 tablet in the evening. sacubitriL- 2021-0 Yes [id number] 1{tbl} Take 1 Univers valsartan 7-26 tablet by ity o f (ENTRESTO) 00:00: mouth in [place] as 49-51 mg 00 the Medical tablet morning Branch and 1 tablet in the evening. sacubitriL- 2021-0 Yes [id number] 1{tbl} Take 1 Univers valsartan 7-26 tablet by ity o f (ENTRESTO) 00:00: mouth in [place] as 49-51 mg 00 the Medical tablet morning Branch and 1 tablet in the evening. sacubitriL- Yes [id number] 1{tbl} Take 1 Univers valsartan 7-26 tablet by ity o f (ENTRESTO) 00:00: mouth in [place] as 49-51 mg 00 the Medical tablet morning Branch and 1 tablet in the evening. sacubitriL- Yes [id number] 1{tbl} Take 1 Univers valsartan 7-26 tablet by ity o f (ENTRESTO) 00:00: mouth in [place] as 49-51 mg 00 the Medical tablet morning Branch and 1 tablet in the evening. sacubitriL- Yes [id number] 1{tbl} Take 1 Univers valsartan 7-26 tablet by ity o f (ENTRESTO) 00:00: mouth in [place] 49-51 mg 00 the Medical tablet morning Branch and 1 tablet in the evening. sacubitriL- Yes [id number] 1{tbl} Take 1 Univers valsartan 7-26 tablet by ity o f (ENTRESTO) 00:00: mouth in [place] as 49-51 mg 00 the Medical tablet morning Branch and 1 tablet in the evening. sacubitriL- 0 Yes [id number] 1{tbl} Take 1 Univers valsartan 7-26 tablet by ity o f (ENTRESTO) 00:00: mouth in [place] 49-51 mg 00 the Medical tablet morning Branch and 1 tablet in the evening. sacubitriL- 2021-0 Yes [id number] 1{tbl} Take 1 Univers valsartan 7-26 tablet by ity o f (ENTRESTO) 00:00: mouth in [place] as 49-51 mg 00 the Medical tablet morning Branch and 1 tablet in the evening. sacubitriL- 0 Yes [id number] 1{tbl} Take 1 Univers valsartan 7-26 tablet by ity o f (ENTRESTO) 00:00: mouth in [place] as 49-51 mg 00 the Medical tablet morning Branch and 1 tablet in the evening. sacubitriL- 2021-0 Yes [id number] 1{tbl} Take 1 Univers valsartan 7-26 tablet by ity o f (ENTRESTO) 00:00: mouth in [place] as 49-51 mg 00 the Medical tablet morning Branch and 1 tablet in the evening. sacubitriL- Yes [id number] 1{tbl} Take 1 Univers valsartan 7-26 tablet by ity o f (ENTRESTO) 00:00: mouth in [place] as 49-51 mg 00 the Medical tablet morning Branch and 1 tablet in the evening. sacubitriL- Yes [id number] 1{tbl} Take 1 Univers valsartan 7-26 tablet by ity o f (ENTRESTO) 00:00: mouth in [place] as 49-51 mg 00 the Medical tablet morning Branch and 1 tablet in the evening. sacubitriL- Yes [id number] 1{tbl} Take 1 Univers valsartan 7-26 tablet by ity o f (ENTRESTO) 00:00: mouth in [place] as 49-51 mg 00 the Medical tablet morning Branch and 1 tablet in the evening. sacubitriL- Yes [id number] 1{tbl} Take 1 Univers valsartan 7-26 tablet by ity o f (ENTRESTO) 00:00: mouth in [place] as 49-51 mg 00 the Medical tablet morning Branch and 1 tablet in the evening. sacubitriL- 0 2022- No [id number] 1{tbl} Take 1 Univers valsartan 7-26 03-27 tablet by ity of (ENTRESTO) 00:00: 00:00 mouth in [place] 49-51 mg 00 :00 the Medical tablet morning Branch and 1 tablet in the evening. sacubitriL- 2021-0 2022- No [id number] 1{tbl} Take 1 Univers valsartan 7-26 03-27 tablet by ity of (ENTRESTO) 00:00: 00:00 mouth in [place] 49-51 mg 00 :00 the Medical tablet morning Branch and 1 tablet in the evening. clopidogreL 0 Yes [id number] TAKE 1 Univers 75 mg 7-01 TABLET ity of tablet 00:00: EVERY DAY [place] 00 Medical Branch clopidogreL 2021-0 Yes [id number] TAKE 1 Univers 75 mg 7-01 TABLET ity of tablet 00:00: EVERY DAY [place] 00 Medical Branch clopidogreL 2021-0 2021- No [id number] TAKE 1 Univers 75 mg 7-01 08-25 TABLET ity of tablet 00:00: 00:00 EVERY DAY [place] 00 :00 Medical Branch Azithromyci Azithromyci 0 2021- No QD Azithromyc n 250 MG n 250 MG 12-06- in 250 MG 00:00: 00:00 00 :00 methylPREDN methylPREDN 2021- No QD methylPRED ISolone 4 ISolone 4 11-30 NISolone 4 MG MG 00:00: 00:00 MG 00 :00 methylPREDN methylPREDN 2021- No QD methylPRED ISolone 4 ISolone 4 11-30 NISolone 4 MG MG 00:00: 00:00 MG 00 :00 Azithromyci Azithromyci 2021- No QD Azithromyc n 250 MG n 250 MG 10-05-17 in 250 MG 00:00: 00:00 00 :00 Azithromyci Azithromyci 0 2021- No QD Azithromyc n 250 MG n 250 MG 10-05-17 in 250 MG 00:00: 00:00 00 :00 CARVEDILOL Yes [id number] TAKE 1 Univers 3.125 mg 1-05 TABLET ity of tablet 00:00: TWICE [place] 00 DAILY WITH Medical MEALS Branch CARVEDILOL 2021-0 2021- No [id number] TAKE 1 Univers 3.125 mg 1-05 08-25 TABLET ity of tablet 00:00: 00:00 TWICE [place] 00 :00 DAILY WITH Medical MEALS Branch pantoprazol 2020-09 Yes 40mg Take 40 mg Univers e 40 mg EC 1-23 by mouth ity o f tablet 14:19: daily. [address] citalopram 2020-09 Yes 20mg Take 20 mg U nivers 20 mg 1-23 by mouth ity of tablet 14:19: daily. [address] busPIRone 2020-09 Yes 10mg Take 10 mg Un natalie 10 mg 1-23 by mouth ity of tablet 14:19: as needed. [address] albuterol 2020-09 Yes Inhale. Unive rs sulfate 1-23 ity of (PROAIR HFA 14:19: [place] INHALE[address] pantoprazol 2020-09 Yes 40mg Take 40 mg Univers e 40 mg EC 1-23 by mouth ity o f tablet 14:19: daily. [address] citalopram 2020-09 Yes 20mg Take 20 mg U nivers 20 mg 1-23 by mouth ity of tablet 14:19: daily. [address] busPIRone 2020-09 Yes 10mg Take 10 mg Un natalie 10 mg 1-23 by mouth ity of tablet 14:19: as needed. [address] albuterol 2020-09 Yes Inhale. Unive rs sulfate 1-23 ity of (PROAIR HFA 14:19: [place] INHALE[address] pantoprazol 2020-09 Yes 40mg Take 40 mg Univers e 40 mg EC 1-23 by mouth ity o f tablet 14:19: daily. [address] citalopram 2020-09 Yes 20mg Take 20 mg U nivers 20 mg 1-23 by mouth ity of tablet 14:19: daily. [address] busPIRone 2020-09 Yes 10mg Take 10 mg Un natalie 10 mg 1-23 by mouth ity of tablet 14:19: as needed. [address] albuterol 2020-09 Yes Inhale. Unive rs sulfate 1-23 ity of (PROAIR HFA 14:19: [place] INHALE[address] pantoprazol 2020-09 Yes 40mg Take 40 mg Univers e 40 mg EC 1-23 by mouth ity o f tablet 14:19: daily. [address] citalopram 2020-09 Yes 20mg Take 20 mg U nivers 20 mg 1-23 by mouth ity of tablet 14:19: daily. [address] busPIRone 2020-09 Yes 10mg Take 10 mg Un natalie 10 mg 1-23 by mouth ity of tablet 14:19: as needed. [address] albuterol 2020-09 Yes Inhale. Unive rs sulfate 1-23 ity of (PROAIR HFA 14:19: [place] INHALE) [address] [place] [address] pantoprazol 2020-09 Yes 40mg Take 40 mg Univers e 40 mg EC 1-23 by mouth ity o f tablet 14:19: daily. [address] citalopram 2020-09 Yes 20mg Take 20 mg U nivers 20 mg 1-23 by mouth ity of tablet 14:19: daily. [address] busPIRone 2020-09 Yes 10mg Take 10 mg Un natalie 10 mg 1-23 by mouth ity of tablet 14:19: as needed. [address] albuterol 2020-09 Yes Inhale. Unive rs sulfate 1-23 ity of (PROAIR HFA 14:19: [place] INHALE) [address] [place] [address] pantoprazol 2020-09 Yes 40mg Take 40 mg Univers e 40 mg EC 1-23 by mouth ity o f tablet 14:19: daily. [address] citalopram 2020-09 Yes 20mg Take 20 mg U nivers 20 mg 1-23 by mouth ity of tablet 14:19: daily. [address] busPIRone 2020-09 Yes 10mg Take 10 mg Un natalie 10 mg 1-23 by mouth ity of tablet 14:19: as needed. [address] albuterol 2020-09 Yes Inhale. Unive rs sulfate 1-23 ity of (PROAIR HFA 14:19: [place] INHALE) [address] [place] [address] pantoprazol 2020-09 Yes 40mg Take 40 mg Univers e 40 mg EC 1-23 by mouth ity o f tablet 14:19: daily. [address] citalopram 2020-09 Yes 20mg Take 20 mg U nivers 20 mg 1-23 by mouth ity of tablet 14:19: daily. [address] busPIRone 2020-09 Yes 10mg Take 10 mg Un natalie 10 mg 1-23 by mouth ity of tablet 14:19: as needed. [address] albuterol 2020-09 Yes Inhale. Unive rs sulfate 1-23 ity of (PROAIR HFA 14:19: [place] INHALE) [address] [place] [address] acetaminoph 2020-09 Yes [id number] 1{tbl} Take 1 [...] s-p generator change out doxycycline 2020-09 Yes [id number] 100mg Take 1 Univers 100 mg EC 1-11 tablet by ity o f tablet 00:00: mouth 2 (two) Medical times Branch daily. doxycycline 2020-09 Yes [id number] 100mg Take 1 Univers 100 mg EC 1-11 tablet by ity o f tablet 00:00: mouth 2 (two) Medical times Branch daily. doxycycline 2020-09 Yes [id number] 100mg Take 1 Univers 100 mg EC 1-11 tablet by ity o f tablet 00:00: mouth (two) Medical times Branch daily. doxycycline 2020-09 Yes [id number] 100mg Take 1 Univers 100 mg EC 1-11 tablet by ity o f tablet 00:00: mouth (two) Medical times Branch daily. doxycycline 2020-09 Yes [id number] 100mg Take 1 Univers 100 mg EC 1-11 tablet by ity o f tablet 00:00: mouth (two) Medical times Branch daily. doxycycline 2020-09 Yes [id number] 100mg Take 1 Univers 100 mg EC 1-11 tablet by ity o f tablet 00:00: mouth (two) Medical times Branch daily. doxycycline 2020-09 Yes [id number] 100mg Take 1 Univers 100 mg EC 1-11 tablet by ity o f tablet 00:00: mouth 2 (two) Medical times Branch daily. doxycycline 2020-09 Yes [id number] 100mg Take 1 Univers 100 mg EC 1-11 tablet by ity o f tablet 00:00: mouth 2 (two) Medical times Branch daily. doxycycline 2020-09 Yes [id number] 100mg Take 1 Univers 100 mg EC 1-11 tablet by ity o f tablet 00:00: mouth (two) Medical times Branch daily. doxycycline 2020-09 Yes [id number] 100mg Take 1 Univers 100 mg EC 1-11 tablet by ity o f tablet 00:00: mouth 2 (two) Medical times Branch daily. doxycycline 2020-09 Yes [id number] 100mg Take 1 Univers 100 mg EC 1-11 tablet by ity o f tablet 00:00: mouth 2 (two) Medical times Branch daily. doxycycline 2020-09 Yes [id number] 100mg Take 1 Univers 100 mg EC 1-11 tablet by ity o f tablet 00:00: mouth 2 (two) Medical times Branch daily. doxycycline 2020-09 Yes [id number] 100mg Take 1 Univers 100 mg EC 1-11 tablet by ity o f tablet 00:00: mouth 2 (two) Medical times Branch daily. doxycycline 2020-09 Yes [id number] 100mg Take 1 Univers 100 mg EC 1-11 tablet by ity o f tablet 00:00: mouth (two) Medical times Branch daily. doxycycline 2020-09 Yes [id number] 100mg Take 1 Univers 100 mg EC 1-11 tablet by ity o f tablet 00:00: mouth (two) Medical times Branch daily. doxycycline 2020-09 Yes [id number] 100mg Take 1 Univers 100 mg EC 1-11 tablet by ity o f tablet 00:00: mouth 2 (two) Medical times Branch daily. doxycycline 2020-09 Yes [id number] 100mg Take 1 Univers 100 mg EC 1-11 tablet by ity o f tablet 00:00: mouth (two) Medical times Branch daily. methylPREDN methylPREDN 2020- No QD methylPRED ISolone 4 ISolone 4 06-17 NISolone 4 MG MG 00:00: 00:00 MG 00 :00 methylPREDN methylPREDN 2020- No QD methylPRED ISolone 4 ISolone 4 06-17 NISolone 4 MG MG 00:00: 00:00 MG 00 :00 Azithromyci Azithromyci 2020- No QD Azithromyc n 250 MG n 250 MG 9-24 09-29 in 250 MG 00:00: 00:00 00 :00 Azithromyci Azithromyci 2020-0 1- No QD Azithromyc n 250 MG n 250 MG 06-17 in 250 MG 00:00: 00:00 00 :00 Zolpidem Zolpidem 2020-0 No 1{table Zolpidem Tartrate 5 Tartrate 5 3-11 t_at_be Tartrate 5 MG MG 00:00: dtime} MG 00 Zolpidem Zolpidem 2020-0 No 1{table Zolpidem Tartrate 5 Tartrate 5 3-11 t_at_be Tartrate 5 MG MG 00:00: dtime} MG 00 Zolpidem Zolpidem 2020-0 No 1{table Zolpidem Tartrate 5 Tartrate 5 3-11 t_at_be Tartrate 5 MG MG 00:00: dtime} MG 00 Zolpidem Zolpidem 2020-0 No 1{table Zolpidem Tartrate 5 Tartrate 5 3-11 t_at_be Tartrate 5 MG MG 00:00: dtime} MG 00 Zolpidem Zolpidem 2020-0 No 1{table Zolpidem Tartrate 5 Tartrate 5 3-11 t_at_be Tartrate 5 MG MG 00:00: dtime} MG 00 Zolpidem Zolpidem 2020-0 No 1{table Zolpidem Tartrate 5 Tartrate 5 3-11 t_at_be Tartrate 5 MG MG 00:00: dtime} MG 00 Zolpidem Zolpidem 2020-0 No 1{table Zolpidem Tartrate 5 Tartrate 5 3-11 t_at_be Tartrate 5 MG MG 00:00: dtime} MG 00 Zolpidem Zolpidem 2020-0 No 1{table Zolpidem Tartrate 5 Tartrate 5 3-11 t_at_be Tartrate 5 MG MG 00:00: dtime} MG 00 Zolpidem Zolpidem 2020-0 No 1{table Zolpidem Tartrate 5 Tartrate 5 3-11 t_at_be Tartrate 5 MG MG 00:00: dtime} MG 00 Zolpidem Zolpidem 2020-0 No 1{table Zolpidem Tartrate 5 Tartrate 5 3-11 t_at_be Tartrate 5 MG MG 00:00: dtime} MG 00 Zolpidem Zolpidem 2020-0 No 1{table Zolpidem Tartrate 5 Tartrate 5 3-11 t_at_be Tartrate 5 MG MG 00:00: dtime} MG 00 Zolpidem Zolpidem 2020-0 No 1{table Zolpidem Tartrate 5 Tartrate 5 3-11 t_at_be Tartrate 5 MG MG 00:00: dtime} MG 00 Zolpidem Zolpidem 2020-0 No 1{table Zolpidem Tartrate 5 Tartrate 5 3-11 t_at_be Tartrate 5 MG MG 00:00: dtime} MG 00 Zolpidem Zolpidem 2020-0 No 1{table Zolpidem Tartrate 5 Tartrate 5 3-11 t_at_be Tartrate 5 MG MG 00:00: dtime} MG 00 Zolpidem Zolpidem 2020-0 No 1{table Zolpidem Tartrate 5 Tartrate 5 3-11 t_at_be Tartrate 5 MG MG 00:00: dtime} MG 00 Zolpidem Zolpidem 2020-0 No 1{table Zolpidem Tartrate 5 Tartrate 5 3-11 t_at_be Tartrate 5 MG MG 00:00: dtime} MG 00 Zolpidem Zolpidem 2020-0 No 1{table Zolpidem Tartrate 5 Tartrate 5 3-11 t_at_be Tartrate 5 MG MG 00:00: dtime} MG 00 Zolpidem Zolpidem 2020-0 No 1{table Zolpidem Tartrate 5 Tartrate 5 3-11 t_at_be Tartrate 5 MG MG 00:00: dtime} MG 00 Zolpidem Zolpidem 2020-0 No 1{table Zolpidem Tartrate 5 Tartrate 5 3-11 t_at_be Tartrate 5 MG MG 00:00: dtime} MG 00 FUROSEMIDE 2020-0 Yes [id number] 20mg TAKE 1 Univers 20 mg 4-30 TABLET BY ity of tablet 00:00: MOUTH [place] 00 EVERY Medical MORNING Branch AND EVENING. FUROSEMIDE 2020-0 Yes [id number] 20mg TAKE 1 Univers 20 mg 4-30 TABLET BY ity of tablet 00:00: MOUTH [place] 00 EVERY Medical MORNING Branch AND EVENING. FUROSEMIDE 2020-0 Yes [id number] 20mg TAKE 1 Univers 20 mg 4-30 TABLET BY ity of tablet 00:00: MOUTH [place] 00 EVERY Medical MORNING Branch AND EVENING. FUROSEMIDE 2020-0 Yes [id number] 20mg TAKE 1 [facility] 20 mg 4-30 TABLET BY ity of tablet 00:00: MOUTH [place] 00 EVERY Medical MORNING Branch AND EVENING. FUROSEMIDE 2020-0 Yes [id number] 20mg TAKE 1 [facility] 20 mg 4-30 TABLET BY ity of tablet 00:00: MOUTH [place] 00 EVERY Medical MORNING Branch AND EVENING. FUROSEMIDE 2020-0 Yes [id number] 20mg TAKE 1 [facility] 20 mg 4-30 TABLET BY ity of tablet 00:00: MOUTH [place] 00 EVERY Medical MORNING Branch AND EVENING. FUROSEMIDE 2020-0 Yes [id number] 20mg TAKE 1 [facility] 20 mg 4-30 TABLET BY ity of tablet 00:00: MOUTH [place] 00 EVERY Medical MORNING Branch AND EVENING. FUROSEMIDE 2020-0 Yes [id number] 20mg TAKE 1 [facility] 20 mg 4-30 TABLET BY ity of tablet 00:00: MOUTH [place] 00 EVERY Medical MORNING Branch AND EVENING. FUROSEMIDE 2020-0 Yes [id number] 20mg TAKE 1 [facility] 20 mg 4-30 TABLET BY ity of tablet 00:00: MOUTH [place] 00 EVERY Medical MORNING Branch AND EVENING. FUROSEMIDE 2020-0 Yes [id number] 20mg TAKE 1 [facility] 20 mg 4-30 TABLET BY ity of tablet 00:00: MOUTH [place] 00 EVERY Medical MORNING Branch AND EVENING. FUROSEMIDE 2020-0 Yes [id number] 20mg TAKE 1 [facility] 20 mg 4-30 TABLET BY ity of tablet 00:00: MOUTH [place] 00 EVERY Medical MORNING Branch AND EVENING. FUROSEMIDE 2020-0 Yes [id number] 20mg TAKE 1 [facility] 20 mg 4-30 TABLET BY ity of tablet 00:00: MOUTH [place] 00 EVERY Medical MORNING Branch AND EVENING. FUROSEMIDE 2020-0 Yes [id number] 20mg TAKE 1 [facility] 20 mg 4-30 TABLET BY ity of tablet 00:00: MOUTH [place] 00 EVERY Medical MORNING Branch AND EVENING. FUROSEMIDE 2020-0 Yes [id number] 20mg TAKE 1 [facility] 20 mg 4-30 TABLET BY ity of tablet 00:00: MOUTH [place] [address] EVERY Medical MORNING Branch AND EVENING. FUROSEMIDE 2020-0 Yes [id number] 20mg TAKE 1 [facility] 20 mg 4-30 TABLET BY ity of tablet 00:00: MOUTH [place] [address] EVERY Medical MORNING Branch AND EVENING. FUROSEMIDE 2020-0 3- No [id number] 20mg TAKE 1 [facility] 20 mg 4-30 -27 TABLET BY ity of tablet 00:00: 00:00 MOUTH [place] 00 :00 EVERY Medical MORNING Branch AND EVENING. FUROSEMIDE 2020-0 3- No [id number] 20mg TAKE 1 [facility] 20 mg 4-30 -27 TABLET BY ity of tablet 00:00: 00:00 MOUTH [place] 00 :00 EVERY Medical MORNING Branch AND EVENING. pravastatin 2019-0 Yes 40mg Take 40 mg [facility] 40 mg 7-09 by mouth ity of tablet 00:00: daily. [address] pravastatin 2019-0 Yes 40mg Take 40 mg [facility] 40 mg 7-09 by mouth ity of tablet 00:00: daily. [address] pravastatin 2019-0 Yes 40mg Take 40 mg [facility] 40 mg 7-09 by mouth ity of tablet 00:00: daily. [address] pravastatin 2019-0 Yes 40mg Take 40 mg [facility] 40 mg 7-09 by mouth ity of tablet 00:00: daily. [address] pravastatin 2019-0 Yes 40mg Take 40 mg [facility] 40 mg 7-09 by mouth ity of tablet 00:00: daily. [address] pravastatin 2019-0 Yes 40mg Take 40 mg [facility] 40 mg 7-09 by mouth ity of tablet 00:00: daily. [address] pravastatin 2019-0 Yes 40mg Take 40 mg [facility] 40 mg 7-09 by mouth ity of tablet 00:00: daily. [address] pravastatin 2019-0 Yes 40mg Take 40 mg [facility] 40 mg 7-09 by mouth ity of tablet 00:00: daily. [address] pravastatin 2019-0 Yes 40mg Take 40 mg [facility] 40 mg 7-09 by mouth ity of tablet 00:00: daily. [address] pravastatin 2019-0 Yes 40mg Take 40 mg [facility] 40 mg 7-09 by mouth ity of tablet 00:00: daily. [address] pravastatin 2019-0 Yes 40mg Take 40 mg [facility] 40 mg 7-09 by mouth ity of tablet 00:00: daily. [place] [facility] pravastatin 2019-0 Yes 40mg Take 40 mg [facility] 40 mg 7-09 by mouth ity of tablet 00:00: daily. [place] [facility] pravastatin 2019-0 Yes 40mg Take 40 mg [facility] 40 mg 7-09 by mouth ity of tablet 00:00: daily. [place] [facility] pravastatin 2019-0 Yes 40mg Take 40 mg [facility] 40 mg 7-09 by mouth ity of tablet 00:00: daily. [place] [facility] pravastatin 2019-0 Yes 40mg Take 40 mg [facility] 40 mg 7-09 by mouth ity of tablet 00:00: daily. [place] [facility] pravastatin [id number] Yes 40mg Take 1 Univ ers 40 mg 7-09 tablet by ity of tablet 00:00: mouth in [place] the Medical morning. [place] pravastatin Yes 40mg Take 1 Univ ers 40 mg 7-09 tablet by ity of tablet 00:00: mouth in [place] the Medical morning. [place] traMADOL 2015-09 Yes 50mg [facility] (ULTRAM) 2-08 ity of tablet 50 21:38: [address] traMADOL 2015-09 Yes 50mg [facility] (ULTRAM) 2-08 ity of tablet 50 21:38: [address] traMADOL 2015-09 Yes 50mg [facility] (ULTRAM) 2-08 ity of tablet 50 21:38: [address] traMADOL 2015-09 Yes 50mg [facility] (ULTRAM) 2-08 ity of tablet 50 21:38: [address] traMADOL 2015-09 Yes 50mg [facility] (ULTRAM) 2-08 ity of tablet 50 21:38: [address] traMADOL 2015-09 Yes 50mg [facility] (ULTRAM) 2-08 ity of tablet 50 21:38: [address] traMADOL 2015-09 Yes 50mg [facility] (ULTRAM) 2-08 ity of tablet 50 21:38: [address] traMADOL 2015-09 Yes 50mg [facility] (ULTRAM) 2-08 ity of tablet 50 21:38: [address] traMADOL 2015-09 Yes 50mg [facility] (ULTRAM) 2-08 ity of tablet 50 21:38: [address] traMADOL 2015-09 Yes 50mg [facility] (ULTRAM) 2-08 ity of tablet 50 21:38: [place] mg 53 [facility] Branch traMADOL 2015-09 Yes 50mg [facility] (ULTRAM) 2-08 ity of tablet 50 21:38: [place] mg 53 Medical Branch traMADOL 2015-09 Yes 50mg [facility] (ULTRAM) 2-08 ity of tablet 50 21:38: [place] mg 53 Medical Branch traMADOL 2015-09 Yes 50mg [facility] (ULTRAM) 2-08 ity of tablet 50 21:38: [place] mg 53 Medical Branch traMADOL 2015-09 Yes 50mg [facility] (ULTRAM) 2-08 ity of tablet 50 21:38: [place] mg 53 Medical Branch levothyroxi 2015-09 Yes Univer [...] 100 mcg 00 Medical tablet Branch levothyroxi 2016- Yes Univer s ne 0-24 ity of (SYNTHROID) 00:00: [place] 100 mcg 00 Medical tablet Branch levothyroxi 2016- Yes Univer s ne 0-24 ity of (SYNTHROID) 00:00: [place] 100 mcg 00 Medical tablet Branch levothyroxi 2015-09 Yes Univer s ne 0-24 ity of (SYNTHROID) 00:00: [place] 100 mcg 00 Medical tablet Branch levothyroxi 2016- Yes Univer s ne 0-24 ity of (SYNTHROID) 00:00: [place] 100 mcg 00 Medical tablet Branch levothyroxi 2015-09 Yes 88ug Take 88 Uni vers ne 0-24 mcg in the ity of (SYNTHROID) 00:00: morning. [place] 100 mcg 00 Medical tablet Branch levothyroxi 2015-09 Yes 88ug Take 88 Uni vers ne 0-24 mcg in the ity of (SYNTHROID) 00:00: morning. [place] 100 mcg 00 Medical tablet Branch traZODone 2016-0 Yes at [facility] 9-20 bedtime. ity of 150 mg 00:00: [place] tablet 00 Medical Branch traZODone 2016-0 Yes at [facility] 9-20 bedtime. ity of 150 mg 00:00: [place] tablet 00 Medical Branch traZODone 2016-0 Yes at [facility] 9-20 bedtime. ity of 150 mg 00:00: [place] tablet 00 Medical Branch traZODone 2016-0 Yes at [facility] 9-20 bedtime. ity of 150 mg 00:00: [place] tablet 00 Medical Branch traZODone 2016-0 Yes at [facility] 9-20 bedtime. ity of 150 mg 00:00: [place] tablet 00 Medical Branch traZODone 2016-0 Yes at [facility] 9-20 bedtime. ity of 150 mg 00:00: [place] tablet 00 Medical Branch traZODone 2016-0 Yes at [facility] 9-20 bedtime. ity of 150 mg 00:00: [place] tablet 00 Medical Branch traZODone 2016-0 Yes at [facility] 9-20 bedtime. ity of 150 mg 00:00: [place] tablet 00 Medical Branch traZODone 2016-0 Yes at [facility] 9-20 bedtime. ity of 150 mg 00:00: [place] tablet 00 Medical Branch traZODone 2016-0 Yes at [facility] 9-20 bedtime. ity of 150 mg 00:00: [place] tablet 00 Medical Branch traZODone 2016-0 Yes at [facility] 9-20 bedtime. ity of 150 mg 00:00: [place] tablet 00 Medical Branch traZODone 2016-0 Yes at [facility] 9-20 bedtime. ity of 150 mg 00:00: [place] tablet 00 Medical Branch traZODone 2016-0 Yes at [facility] 9-20 bedtime. ity of 150 mg 00:00: [place] tablet 00 Medical Branch traZODone 2016-0 Yes at [facility] 9-20 bedtime. ity of 150 mg 00:00: [place] tablet 00 Medical Branch traZODone 2016-0 Yes at [facility] 9-20 bedtime. ity of 150 mg 00:00: [place] tablet 00 Medical Branch traZODone 2016-0 Yes at [facility] 9-20 bedtime. ity of 150 mg 00:00: [place] tablet 00 Medical Branch traZODone 2016-0 Yes at [facility] 9-20 bedtime. ity of 150 mg 00:00: [place] tablet 00 Medical Branch Symbicort Symbicort No 2{puffs BID Symbicort 160-4.5 160-4.5 } 160-4.5 MCG/ACT MCG/ACT MCG/ACT Pravastatin Pravastatin No 1{table QD Pravastati Sodium 40 Sodium 40 t} n Sodium MG MG 40 MG Furosemide Furosemide No 1{table QD Furosemide 20 MG 20 MG t} 20 MG Furosemide Furosemide No Furosemide 20 MG 20 MG 20 MG Coreg 3.125 Coreg 3.125 No Coreg MG MG 3.125 MG Ferrous Ferrous No 1{table BID Ferrous Sulfate 325 Sulfate 325 t} Sulfate (65 Fe) MG (65 Fe) MG 325 (65 Fe) MG Plavix 75 Plavix 75 No 1{table QD Plavix 75 MG MG t} MG Levothyroxi Levothyroxi No QD Levothyrox ne Sodium ne Sodium ine Sodium 88 MCG 88 MCG 88 MCG Pantoprazol Pantoprazol No Pantoprazo e Sodium 40 e Sodium 40 le Sodium MG MG 40 MG traZODone traZODone No traZODone HCl 150 MG HCl 150 MG HCl 150 MG Pravastatin Pravastatin No Pravastati Sodium 40 Sodium 40 n Sodium MG MG 40 MG Levothyroxi Levothyroxi No Levothyrox ne Sodium ne Sodium ine Sodium 100 MCG 100 MCG 100 MCG Citalopram Citalopram No Citalopram Hydrobromid Hydrobromid Hydrobromi e 20 MG e 20 MG de 20 MG traZODone traZODone No 1{table QD traZODone HCl 300 MG HCl 300 MG t_at_be HCl 300 MG dtime} Levothyroxi Levothyroxi No Levothyrox ne Sodium ne Sodium ine Sodium 112 MCG 112 MCG 112 MCG ProAir HFA ProAir HFA No 2{puffs QID ProAir HFA 108 (90 108 (90 _as_nee 108 (90 Base) Base) ded} Base) MCG/ACT MCG/ACT MCG/ACT Citalopram Citalopram No 1{table QD Citalopram Hydrobromid Hydrobromid t} Hydrobromi e 20 MG e 20 MG de 20 MG Entresto Entresto No 1{table BID Entresto 49-51 MG 49-51 MG t} 49-51 MG Vitamin D3 Vitamin D3 No 1{capsu QD Vitamin D3 1000 UNIT 1000 UNIT le} 1000 UNIT Aspir-81 81 Aspir-81 81 No 1{table QD Aspir-81 MG MG t} 81 MG busPIRone busPIRone No busPIRone HCl 10 MG HCl 10 MG HCl 10 MG Pantoprazol Pantoprazol No 1{table QD Pantoprazo e Sodium 40 e Sodium 40 t} le Sodium MG MG 40 MG busPIRone busPIRone No 1{table BID busPIRone HCl 10 MG HCl 10 MG t} HCl 10 MG traZODone traZODone No traZODone HCl 100 MG HCl 100 MG HCl 100 MG sulfaSALAzi sulfaSALAzi No 2{table QD sulfaSALAz ne 500 MG ne 500 MG t} ine 500 MG Symbicort Symbicort No 2{puffs BID Symbicort 160-4.5 160-4.5 } 160-4.5 MCG/ACT MCG/ACT MCG/ACT Pravastatin Pravastatin No 1{table QD Pravastati Sodium 40 Sodium 40 t} n Sodium MG MG 40 MG Furosemide Furosemide No 1{table QD Furosemide 20 MG 20 MG t} 20 MG Furosemide Furosemide No Furosemide 20 MG 20 MG 20 MG Coreg 3.125 Coreg 3.125 No Coreg MG MG 3.125 MG Ferrous Ferrous No 1{table BID Ferrous Sulfate 325 Sulfate 325 t} Sulfate (65 Fe) MG (65 Fe) MG 325 (65 Fe) MG Plavix 75 Plavix 75 No 1{table QD Plavix 75 MG MG t} MG Levothyroxi Levothyroxi No QD Levothyrox ne Sodium ne Sodium ine Sodium 88 MCG 88 MCG 88 MCG traZODone traZODone No traZODone HCl 150 MG HCl 150 MG HCl 150 MG Pravastatin Pravastatin No Pravastati Sodium 40 Sodium 40 n Sodium MG MG 40 MG Pravastatin Pravastatin No 1{table QD Pravastati Sodium 40 Sodium 40 t} n Sodium MG MG 40 MG sulfaSALAzi sulfaSALAzi No 2{table QD sulfaSALAz ne 500 MG ne 500 MG t} ine 500 MG traZODone traZODone No 1{table QD traZODone HCl 300 MG HCl 300 MG t_at_be HCl 300 MG dtime} Citalopram Citalopram No Citalopram Hydrobromid Hydrobromid Hydrobromi e 20 MG e 20 MG de 20 MG Pantoprazol Pantoprazol No Pantoprazo e Sodium 40 e Sodium 40 le Sodium MG MG 40 MG Levothyroxi Levothyroxi No Levothyrox ne Sodium ne Sodium ine Sodium 112 MCG 112 MCG 112 MCG Levothyroxi Levothyroxi No Levothyrox ne Sodium ne Sodium ine Sodium 100 MCG 100 MCG 100 MCG Entresto Entresto No 1{table BID Entresto 49-51 MG 49-51 MG t} 49-51 MG Furosemide Furosemide No 1{table QD Furosemide 20 MG 20 MG t} 20 MG Vitamin D3 Vitamin D3 No 1{capsu QD Vitamin D3 1000 UNIT 1000 UNIT le} 1000 UNIT busPIRone busPIRone No 1{table BID busPIRone HCl 10 MG HCl 10 MG t} HCl 10 MG traZODone traZODone No traZODone HCl 100 MG HCl 100 MG HCl 100 MG Symbicort Symbicort No 2{puffs BID Symbicort 160-4.5 160-4.5 } 160-4.5 MCG/ACT MCG/ACT MCG/ACT Citalopram Citalopram No 1{table QD Citalopram Hydrobromid Hydrobromid t} Hydrobromi e 20 MG e 20 MG de 20 MG ProAir HFA ProAir HFA No 2{puffs QID ProAir HFA 108 (90 108 (90 _as_nee 108 (90 Base) Base) ded} Base) MCG/ACT MCG/ACT MCG/ACT busPIRone busPIRone No busPIRone HCl 10 MG HCl 10 MG HCl 10 MG Aspir-81 81 Aspir-81 81 No 1{table QD Aspir-81 MG MG t} 81 MG Pantoprazol Pantoprazol No 1{table QD Pantoprazo e Sodium 40 e Sodium 40 t} le Sodium MG MG 40 MG Furosemide Furosemide No Furosemide 20 MG 20 MG 20 MG Coreg 3.125 Coreg 3.125 No Coreg MG MG 3.125 MG Ferrous Ferrous No 1{table BID Ferrous Sulfate 325 Sulfate 325 t} Sulfate (65 Fe) MG (65 Fe) MG 325 (65 Fe) MG Plavix 75 Plavix 75 No 1{table QD Plavix 75 MG MG t} MG Levothyroxi Levothyroxi No QD Levothyrox ne Sodium ne Sodium ine Sodium 88 MCG 88 MCG 88 MCG traZODone traZODone No traZODone HCl 150 MG HCl 150 MG HCl 150 MG Pravastatin Pravastatin No Pravastati Sodium 40 Sodium 40 n Sodium MG MG 40 MG Pravastatin Pravastatin No 1{table QD Pravastati Sodium 40 Sodium 40 t} n Sodium MG MG 40 MG sulfaSALAzi sulfaSALAzi No 2{table QD sulfaSALAz ne 500 MG ne 500 MG t} ine 500 MG traZODone traZODone No 1{table QD traZODone HCl 300 MG HCl 300 MG t_at_be HCl 300 MG dtime} Citalopram Citalopram No Citalopram Hydrobromid Hydrobromid Hydrobromi e 20 MG e 20 MG de 20 MG Pantoprazol Pantoprazol No Pantoprazo e Sodium 40 e Sodium 40 le Sodium MG MG 40 MG Levothyroxi Levothyroxi No Levothyrox ne Sodium ne Sodium ine Sodium 112 MCG 112 MCG 112 MCG Levothyroxi Levothyroxi No Levothyrox ne Sodium ne Sodium ine Sodium 100 MCG 100 MCG 100 MCG Entresto Entresto No 1{table BID Entresto 49-51 MG 49-51 MG t} 49-51 MG Furosemide Furosemide No 1{table QD Furosemide 20 MG 20 MG t} 20 MG Vitamin D3 Vitamin D3 No 1{capsu QD Vitamin D3 1000 UNIT 1000 UNIT le} 1000 UNIT busPIRone busPIRone No 1{table BID busPIRone HCl 10 MG HCl 10 MG t} HCl 10 MG traZODone traZODone No traZODone HCl 100 MG HCl 100 MG HCl 100 MG Symbicort Symbicort No 2{puffs BID Symbicort 160-4.5 160-4.5 } 160-4.5 MCG/ACT MCG/ACT MCG/ACT Citalopram Citalopram No 1{table QD Citalopram Hydrobromid Hydrobromid t} Hydrobromi e 20 MG e 20 MG de 20 MG ProAir HFA ProAir HFA No 2{puffs QID ProAir HFA 108 (90 108 (90 _as_nee 108 (90 Base) Base) ded} Base) MCG/ACT MCG/ACT MCG/ACT busPIRone busPIRone No busPIRone HCl 10 MG HCl 10 MG HCl 10 MG Aspir-81 81 Aspir-81 81 No 1{table QD Aspir-81 MG MG t} 81 MG Pantoprazol Pantoprazol No 1{table QD Pantoprazo e Sodium 40 e Sodium 40 t} le Sodium MG MG 40 MG Furosemide Furosemide No Furosemide 20 MG 20 MG 20 MG Coreg 3.125 Coreg 3.125 No Coreg MG MG 3.125 MG Ferrous Ferrous No 1{table BID Ferrous Sulfate 325 Sulfate 325 t} Sulfate (65 Fe) MG (65 Fe) MG 325 (65 Fe) MG Plavix 75 Plavix 75 No 1{table QD Plavix 75 MG MG t} MG Levothyroxi Levothyroxi No QD Levothyrox ne Sodium ne Sodium ine Sodium 88 MCG 88 MCG 88 MCG traZODone traZODone No traZODone HCl 150 MG HCl 150 MG HCl 150 MG Pravastatin Pravastatin No Pravastati Sodium 40 Sodium 40 n Sodium MG MG 40 MG Pravastatin Pravastatin No 1{table QD Pravastati Sodium 40 Sodium 40 t} n Sodium MG MG 40 MG sulfaSALAzi sulfaSALAzi No 2{table QD sulfaSALAz ne 500 MG ne 500 MG t} ine 500 MG traZODone traZODone No 1{table QD traZODone HCl 300 MG HCl 300 MG t_at_be HCl 300 MG dtime} Citalopram Citalopram No Citalopram Hydrobromid Hydrobromid Hydrobromi e 20 MG e 20 MG de 20 MG Pantoprazol Pantoprazol No Pantoprazo e Sodium 40 e Sodium 40 le Sodium MG MG 40 MG Levothyroxi Levothyroxi No Levothyrox ne Sodium ne Sodium ine Sodium 112 MCG 112 MCG 112 MCG Levothyroxi Levothyroxi No Levothyrox ne Sodium ne Sodium ine Sodium 100 MCG 100 MCG 100 MCG Entresto Entresto No 1{table BID Entresto 49-51 MG 49-51 MG t} 49-51 MG Furosemide Furosemide No 1{table QD Furosemide 20 MG 20 MG t} 20 MG Vitamin D3 Vitamin D3 No 1{capsu QD Vitamin D3 1000 UNIT 1000 UNIT le} 1000 UNIT busPIRone busPIRone No 1{table BID busPIRone HCl 10 MG HCl 10 MG t} HCl 10 MG traZODone traZODone No traZODone HCl 100 MG HCl 100 MG HCl 100 MG Symbicort Symbicort No 2{puffs BID Symbicort 160-4.5 160-4.5 } 160-4.5 MCG/ACT MCG/ACT MCG/ACT Citalopram Citalopram No 1{table QD Citalopram Hydrobromid Hydrobromid t} Hydrobromi e 20 MG e 20 MG de 20 MG ProAir HFA ProAir HFA No 2{puffs QID ProAir HFA 108 (90 108 (90 _as_nee 108 (90 Base) Base) ded} Base) MCG/ACT MCG/ACT MCG/ACT busPIRone busPIRone No busPIRone HCl 10 MG HCl 10 MG HCl 10 MG Aspir-81 81 Aspir-81 81 No 1{table QD Aspir-81 MG MG t} 81 MG Pantoprazol Pantoprazol No 1{table QD Pantoprazo e Sodium 40 e Sodium 40 t} le Sodium MG MG 40 MG Furosemide Furosemide No Furosemide 20 MG 20 MG 20 MG Coreg 3.125 Coreg 3.125 No Coreg MG MG 3.125 MG Ferrous Ferrous No 1{table BID Ferrous Sulfate 325 Sulfate 325 t} Sulfate (65 Fe) MG (65 Fe) MG 325 (65 Fe) MG Plavix 75 Plavix 75 No 1{table QD Plavix 75 MG MG t} MG Levothyroxi Levothyroxi No QD Levothyrox ne Sodium ne Sodium ine Sodium 88 MCG 88 MCG 88 MCG Pantoprazol Pantoprazol No Pantoprazo e Sodium 40 e Sodium 40 le Sodium MG MG 40 MG Pravastatin Pravastatin No Pravastati Sodium 40 Sodium 40 n Sodium MG MG 40 MG traZODone traZODone No traZODone HCl 150 MG HCl 150 MG HCl 150 MG sulfaSALAzi sulfaSALAzi No 2{table QD sulfaSALAz ne 500 MG ne 500 MG t} ine 500 MG Levothyroxi Levothyroxi No Levothyrox ne Sodium ne Sodium ine Sodium 100 MCG 100 MCG 100 MCG Citalopram Citalopram No Citalopram Hydrobromid Hydrobromid Hydrobromi e 20 MG e 20 MG de 20 MG traZODone traZODone No 1{table QD traZODone HCl 300 MG HCl 300 MG t_at_be HCl 300 MG dtime} Levothyroxi Levothyroxi No Levothyrox ne Sodium ne Sodium ine Sodium 112 MCG 112 MCG 112 MCG ProAir HFA ProAir HFA No 2{puffs QID ProAir HFA 108 (90 108 (90 _as_nee 108 (90 Base) Base) ded} Base) MCG/ACT MCG/ACT MCG/ACT Entresto Entresto No 1{table BID Entresto 49-51 MG 49-51 MG t} 49-51 MG Furosemide Furosemide No 1{table QD Furosemide 20 MG 20 MG t} 20 MG Vitamin D3 Vitamin D3 No 1{capsu QD Vitamin D3 1000 UNIT 1000 UNIT le} 1000 UNIT Aspir-81 81 Aspir-81 81 No 1{table QD Aspir-81 MG MG t} 81 MG traZODone traZODone No traZODone HCl 100 MG HCl 100 MG HCl 100 MG Symbicort Symbicort No 2{puffs BID Symbicort 160-4.5 160-4.5 } 160-4.5 MCG/ACT MCG/ACT MCG/ACT Citalopram Citalopram No 1{table QD Citalopram Hydrobromid Hydrobromid t} Hydrobromi e 20 MG e 20 MG de 20 MG busPIRone busPIRone No 1{table BID busPIRone HCl 10 MG HCl 10 MG t} HCl 10 MG busPIRone busPIRone No busPIRone HCl 10 MG HCl 10 MG HCl 10 MG Pravastatin Pravastatin No 1{table QD Pravastati Sodium 40 Sodium 40 t} n Sodium MG MG 40 MG Pantoprazol Pantoprazol No 1{table QD Pantoprazo e Sodium 40 e Sodium 40 t} le Sodium MG MG 40 MG Furosemide Furosemide No Furosemide 20 MG 20 MG 20 MG Coreg 3.125 Coreg 3.125 No Coreg MG MG 3.125 MG Ferrous Ferrous No 1{table BID Ferrous Sulfate 325 Sulfate 325 t} Sulfate (65 Fe) MG (65 Fe) MG 325 (65 Fe) MG Plavix 75 Plavix 75 No 1{table QD Plavix 75 MG MG t} MG Levothyroxi Levothyroxi No QD Levothyrox ne Sodium ne Sodium ine Sodium 88 MCG 88 MCG 88 MCG Plavix Plavix Yes Juice 1 tablet Commo n [facility] Citalopram Citalopram Yes Juice 1 tablet Common Hydrobromid Hydrobromid [facility] e e - [facility] Symbicort Symbicort Yes Juice [address] [facility] Levothyroxi Levothyroxi Yes Juice 1 tablet Common ne Sodium ne Sodium [facility] on an Spi rit empty - [facility] stomach in [facility] Ferrous Ferrous Yes Juice 1 tablet Com mon Sulfate Sulfate [facility] ProAir HFA ProAir HFA Yes Juice 2 puffs as Common [facility] needed [facility] BusPIRone BusPIRone Yes Juice 1 tablet Common HCl HCl [facility] Vitamin D3 Vitamin D3 Yes Juice [address] [facility] Protonix Protonix Yes Juice 1 tablet C ommon [facility] Trazodone Trazodone Yes Juice 1 tablet Common HCl HCl [facility] at bedtime [facility] Trazodone Trazodone Yes Juice take 1 C ommon HCl HCl [place] tablet one [facility] time daily - [facility] at bedtime [facility] Coreg Coreg Yes Juice not Common [facility] defined [facility] Furosemide Furosemide Yes Juice 1 tablet Common [facility] Aspir-81 Aspir-81 Yes Juice 1 tablet C [facility] Pravastatin Pravastatin Yes Juice 1 tablet Common Sodium Sodium [facility] Sulfasalazi Sulfasalazi Yes Juice 2 tablet Common ne ne [facility] Entresto Entresto Yes Juice 1 tablet C [facility] Pantoprazol Pantoprazol Yes Juice 1 tablet Common e Sodium e Sodium [facility] Aspir-81 81 Aspir-81 81 No 1{table QD Aspir-81 MG MG t} 81 MG Levothyroxi Levothyroxi No QD Levothyrox ne Sodium ne Sodium ine Sodium 88 MCG 88 MCG 88 MCG Levothyroxi Levothyroxi No Levothyrox ne Sodium ne Sodium ine Sodium 100 MCG 100 MCG 100 MCG Furosemide Furosemide No Furosemide 20 MG 20 MG 20 MG Pravastatin Pravastatin No 1{table QD Pravastati Sodium 40 Sodium 40 t} n Sodium MG MG 40 MG Pantoprazol Pantoprazol No Pantoprazo e Sodium 40 e Sodium 40 le Sodium MG MG 40 MG Plavix 75 Plavix 75 No 1{table QD Plavix 75 MG MG t} MG Ferrous Ferrous No 1{table QD Ferrous Sulfate 325 Sulfate 325 t} Sulfate (65 Fe) MG (65 Fe) MG 325 (65 Fe) MG traZODone traZODone No traZODone HCl 100 MG HCl 100 MG HCl 100 MG Vitamin D3 Vitamin D3 No 1{capsu QD Vitamin D3 1000 UNIT 1000 UNIT le} 1000 UNIT sulfaSALAzi sulfaSALAzi No 2{table QD sulfaSALAz ne 500 MG ne 500 MG t} ine 500 MG traZODone traZODone No traZODone HCl 150 MG HCl 150 MG HCl 150 MG Citalopram Citalopram No 1{table QD Citalopram Hydrobromid Hydrobromid t} Hydrobromi e 20 MG e 20 MG de 20 MG Citalopram Citalopram No Citalopram Hydrobromid Hydrobromid Hydrobromi e 20 MG e 20 MG de 20 MG Levothyroxi Levothyroxi No Levothyrox ne Sodium ne Sodium ine Sodium 112 MCG 112 MCG 112 MCG Pravastatin Pravastatin No Pravastati Sodium 40 Sodium 40 n Sodium MG MG 40 MG busPIRone busPIRone No 1{table BID busPIRone HCl 10 MG HCl 10 MG t} HCl 10 MG busPIRone busPIRone No busPIRone HCl 10 MG HCl 10 MG HCl 10 MG Coreg 3.125 Coreg 3.125 No Coreg MG MG 3.125 MG Pantoprazol Pantoprazol No 1{table QD Pantoprazo e Sodium 40 e Sodium 40 t} le Sodium MG MG 40 MG ProAir HFA ProAir HFA No 2{puffs QID ProAir HFA 108 (90 108 (90 _as_nee 108 (90 Base) Base) ded} Base) MCG/ACT MCG/ACT MCG/ACT Symbicort Symbicort No 2{puffs BID Symbicort 160-4.5 160-4.5 } 160-4.5 MCG/ACT MCG/ACT MCG/ACT Entresto Entresto No 1{table BID Entresto 49-51 MG 49-51 MG t} 49-51 MG Furosemide Furosemide No 1{table QD Furosemide 20 MG 20 MG t} 20 MG Symbicort Symbicort No 2{puffs BID Symbicort 160-4.5 160-4.5 } 160-4.5 MCG/ACT MCG/ACT MCG/ACT ProAir HFA ProAir HFA No 2{puffs QID ProAir HFA 108 (90 108 (90 _as_nee 108 (90 Base) Base) ded} Base) MCG/ACT MCG/ACT MCG/ACT sulfaSALAzi sulfaSALAzi No 2{table QD sulfaSALAz ne 500 MG ne 500 MG t} ine 500 MG Citalopram Citalopram No Citalopram Hydrobromid Hydrobromid Hydrobromi e 20 MG e 20 MG de 20 MG Plavix 75 Plavix 75 No 1{table QD Plavix 75 MG MG t} MG Coreg 3.125 Coreg 3.125 No Coreg MG MG 3.125 MG Furosemide Furosemide No Furosemide 20 MG 20 MG 20 MG traZODone traZODone No QD traZODone HCl 150 MG HCl 150 MG HCl 150 MG Entresto Entresto No 1{table BID Entresto 49-51 MG 49-51 MG t} 49-51 MG Ferrous Ferrous No 1{table QD Ferrous Sulfate 325 Sulfate 325 t} Sulfate (65 Fe) MG (65 Fe) MG 325 (65 Fe) MG Pantoprazol Pantoprazol No Pantoprazo e Sodium 40 e Sodium 40 le Sodium MG MG 40 MG Vitamin D3 Vitamin D3 No 1{capsu QD Vitamin D3 1000 UNIT 1000 UNIT le} 1000 UNIT Aspir-81 81 Aspir-81 81 No 1{table QD Aspir-81 MG MG t} 81 MG Levothyroxi Levothyroxi No QD Levothyrox ne Sodium ne Sodium ine Sodium 100 MCG 100 MCG 100 MCG busPIRone busPIRone No busPIRone HCl 10 MG HCl 10 MG HCl 10 MG Pravastatin Pravastatin No 1{table QD Pravastati Sodium 40 Sodium 40 t} n Sodium MG MG 40 MG Symbicort Symbicort No 2{puffs BID Symbicort 160-4.5 160-4.5 } 160-4.5 MCG/ACT MCG/ACT MCG/ACT ProAir HFA ProAir HFA No 2{puffs QID ProAir HFA 108 (90 108 (90 _as_nee 108 (90 Base) Base) ded} Base) MCG/ACT MCG/ACT MCG/ACT traZODone traZODone No traZODone HCl 150 MG HCl 150 MG HCl 150 MG Citalopram Citalopram No Citalopram Hydrobromid Hydrobromid Hydrobromi e 20 MG e 20 MG de 20 MG Ferrous Ferrous No 1{table QD Ferrous Sulfate 325 Sulfate 325 t} Sulfate (65 Fe) MG (65 Fe) MG 325 (65 Fe) MG Coreg 3.125 Coreg 3.125 No Coreg MG MG 3.125 MG Plavix 75 Plavix 75 No 1{table QD Plavix 75 MG MG t} MG Aspir-81 81 Aspir-81 81 No 1{table QD Aspir-81 MG MG t} 81 MG Entresto Entresto No 1{table BID Entresto 49-51 MG 49-51 MG t} 49-51 MG busPIRone busPIRone No busPIRone HCl 10 MG HCl 10 MG HCl 10 MG Pravastatin Pravastatin No 1{table QD Pravastati Sodium 40 Sodium 40 t} n Sodium MG MG 40 MG sulfaSALAzi sulfaSALAzi No 2{table QD sulfaSALAz ne 500 MG ne 500 MG t} ine 500 MG Pantoprazol Pantoprazol No Pantoprazo e Sodium 40 e Sodium 40 le Sodium MG MG 40 MG Furosemide Furosemide No Furosemide 20 MG 20 MG 20 MG Vitamin D3 Vitamin D3 No 1{capsu QD Vitamin D3 1000 UNIT 1000 UNIT le} 1000 UNIT Levothyroxi Levothyroxi No Levothyrox ne Sodium ne Sodium ine Sodium 100 MCG 100 MCG 100 MCG Entresto Entresto No 1{table BID Entresto 49-51 MG 49-51 MG t} 49-51 MG Symbicort Symbicort No 2{puffs BID Symbicort 160-4.5 160-4.5 } 160-4.5 MCG/ACT MCG/ACT MCG/ACT Aspir-81 81 Aspir-81 81 No 1{table QD Aspir-81 MG MG t} 81 MG Levothyroxi Levothyroxi No Levothyrox ne Sodium ne Sodium ine Sodium 100 MCG 100 MCG 100 MCG traZODone traZODone No traZODone HCl 150 MG HCl 150 MG HCl 150 MG Pravastatin Pravastatin No Pravastati Sodium 40 Sodium 40 n Sodium MG MG 40 MG busPIRone busPIRone No busPIRone HCl 10 MG HCl 10 MG HCl 10 MG Vitamin D3 Vitamin D3 No 1{capsu QD Vitamin D3 1000 UNIT 1000 UNIT le} 1000 UNIT ProAir HFA ProAir HFA No 2{puffs QID ProAir HFA 108 (90 108 (90 _as_nee 108 (90 Base) Base) ded} Base) MCG/ACT MCG/ACT MCG/ACT Pantoprazol Pantoprazol No Pantoprazo e Sodium 40 e Sodium 40 le Sodium MG MG 40 MG Citalopram Citalopram No Citalopram Hydrobromid Hydrobromid Hydrobromi e 20 MG e 20 MG de 20 MG Coreg 3.125 Coreg 3.125 No Coreg MG MG 3.125 MG Plavix 75 Plavix 75 No 1{table QD Plavix 75 MG MG t} MG sulfaSALAzi sulfaSALAzi No 2{table QD sulfaSALAz ne 500 MG ne 500 MG t} ine 500 MG Furosemide Furosemide No Furosemide 20 MG 20 MG 20 MG Ferrous Ferrous No 1{table QD Ferrous Sulfate 325 Sulfate 325 t} Sulfate (65 Fe) MG (65 Fe) MG 325 (65 Fe) MG Entresto Entresto No 1{table BID Entresto 49-51 MG 49-51 MG t} 49-51 MG Symbicort Symbicort No 2{puffs BID Symbicort 160-4.5 160-4.5 } 160-4.5 MCG/ACT MCG/ACT MCG/ACT Aspir-81 81 Aspir-81 81 No 1{table QD Aspir-81 MG MG t} 81 MG Levothyroxi Levothyroxi No Levothyrox ne Sodium ne Sodium ine Sodium 100 MCG 100 MCG 100 MCG traZODone traZODone No traZODone HCl 150 MG HCl 150 MG HCl 150 MG Pravastatin Pravastatin No Pravastati Sodium 40 Sodium 40 n Sodium MG MG 40 MG busPIRone busPIRone No busPIRone HCl 10 MG HCl 10 MG HCl 10 MG Vitamin D3 Vitamin D3 No 1{capsu QD Vitamin D3 1000 UNIT 1000 UNIT le} 1000 UNIT ProAir HFA ProAir HFA No 2{puffs QID ProAir HFA 108 (90 108 (90 _as_nee 108 (90 Base) Base) ded} Base) MCG/ACT MCG/ACT MCG/ACT Pantoprazol Pantoprazol No Pantoprazo e Sodium 40 e Sodium 40 le Sodium MG MG 40 MG Citalopram Citalopram No Citalopram Hydrobromid Hydrobromid Hydrobromi e 20 MG e 20 MG de 20 MG Coreg 3.125 Coreg 3.125 No Coreg MG MG 3.125 MG Plavix 75 Plavix 75 No 1{table QD Plavix 75 MG MG t} MG sulfaSALAzi sulfaSALAzi No 2{table QD sulfaSALAz ne 500 MG ne 500 MG t} ine 500 MG Furosemide Furosemide No Furosemide 20 MG 20 MG 20 MG Ferrous Ferrous No 1{table QD Ferrous Sulfate 325 Sulfate 325 t} Sulfate (65 Fe) MG (65 Fe) MG 325 (65 Fe) MG Aspir-81 81 Aspir-81 81 No 1{table QD Aspir-81 MG MG t} 81 MG Levothyroxi Levothyroxi No Levothyrox ne Sodium ne Sodium ine Sodium 100 MCG 100 MCG 100 MCG ProAir HFA ProAir HFA No 2{puffs QID ProAir HFA 108 (90 108 (90 _as_nee 108 (90 Base) Base) ded} Base) MCG/ACT MCG/ACT MCG/ACT traZODone traZODone No traZODone HCl 150 MG HCl 150 MG HCl 150 MG Pravastatin Pravastatin No Pravastati Sodium 40 Sodium 40 n Sodium MG MG 40 MG busPIRone busPIRone No busPIRone HCl 10 MG HCl 10 MG HCl 10 MG Vitamin D3 Vitamin D3 No 1{capsu QD Vitamin D3 1000 UNIT 1000 UNIT le} 1000 UNIT Citalopram Citalopram No Citalopram Hydrobromid Hydrobromid Hydrobromi e 20 MG e 20 MG de 20 MG Plavix 75 Plavix 75 No 1{table QD Plavix 75 MG MG t} MG Pantoprazol Pantoprazol No Pantoprazo e Sodium 40 e Sodium 40 le Sodium MG MG 40 MG Symbicort Symbicort No 2{puffs BID Symbicort 160-4.5 160-4.5 } 160-4.5 MCG/ACT MCG/ACT MCG/ACT Coreg 3.125 Coreg 3.125 No Coreg MG MG 3.125 MG Ferrous Ferrous No 1{table QD Ferrous Sulfate 325 Sulfate 325 t} Sulfate (65 Fe) MG (65 Fe) MG 325 (65 Fe) MG sulfaSALAzi sulfaSALAzi No 2{table QD sulfaSALAz ne 500 MG ne 500 MG t} ine 500 MG Furosemide Furosemide No Furosemide 20 MG 20 MG 20 MG Entresto Entresto No 1{table BID Entresto 49-51 MG 49-51 MG t} 49-51 MG Aspir-81 81 Aspir-81 81 No 1{table QD Aspir-81 MG MG t} 81 MG Levothyroxi Levothyroxi No Levothyrox ne Sodium ne Sodium ine Sodium 100 MCG 100 MCG 100 MCG ProAir HFA ProAir HFA No 2{puffs QID ProAir HFA 108 (90 108 (90 _as_nee 108 (90 Base) Base) ded} Base) MCG/ACT MCG/ACT MCG/ACT traZODone traZODone No traZODone HCl 150 MG HCl 150 MG HCl 150 MG Pravastatin Pravastatin No Pravastati Sodium 40 Sodium 40 n Sodium MG MG 40 MG busPIRone busPIRone No busPIRone HCl 10 MG HCl 10 MG HCl 10 MG Vitamin D3 Vitamin D3 No 1{capsu QD Vitamin D3 1000 UNIT 1000 UNIT le} 1000 UNIT Citalopram Citalopram No Citalopram Hydrobromid Hydrobromid Hydrobromi e 20 MG e 20 MG de 20 MG Plavix 75 Plavix 75 No 1{table QD Plavix 75 MG MG t} MG Pantoprazol Pantoprazol No Pantoprazo e Sodium 40 e Sodium 40 le Sodium MG MG 40 MG Symbicort Symbicort No 2{puffs BID Symbicort 160-4.5 160-4.5 } 160-4.5 MCG/ACT MCG/ACT MCG/ACT Coreg 3.125 Coreg 3.125 No Coreg MG MG 3.125 MG Ferrous Ferrous No 1{table QD Ferrous Sulfate 325 Sulfate 325 t} Sulfate (65 Fe) MG (65 Fe) MG 325 (65 Fe) MG sulfaSALAzi sulfaSALAzi No 2{table QD sulfaSALAz ne 500 MG ne 500 MG t} ine 500 MG Furosemide Furosemide No Furosemide 20 MG 20 MG 20 MG Entresto Entresto No 1{table BID Entresto 49-51 MG 49-51 MG t} 49-51 MG Aspir-81 81 Aspir-81 81 No 1{table QD Aspir-81 MG MG t} 81 MG Levothyroxi Levothyroxi No Levothyrox ne Sodium ne Sodium ine Sodium 100 MCG 100 MCG 100 MCG ProAir HFA ProAir HFA No 2{puffs QID ProAir HFA 108 (90 108 (90 _as_nee 108 (90 Base) Base) ded} Base) MCG/ACT MCG/ACT MCG/ACT Pantoprazol Pantoprazol No Pantoprazo e Sodium 40 e Sodium 40 le Sodium MG MG 40 MG Vitamin D3 Vitamin D3 No 1{capsu QD Vitamin D3 1000 UNIT 1000 UNIT le} 1000 UNIT Pravastatin Pravastatin No Pravastati Sodium 40 Sodium 40 n Sodium MG MG 40 MG sulfaSALAzi sulfaSALAzi No 2{table QD sulfaSALAz ne 500 MG ne 500 MG t} ine 500 MG Plavix 75 Plavix 75 No 1{table QD Plavix 75 MG MG t} MG Furosemide Furosemide No Furosemide 20 MG 20 MG 20 MG Coreg 3.125 Coreg 3.125 No Coreg MG MG 3.125 MG Symbicort Symbicort No 2{puffs BID Symbicort 160-4.5 160-4.5 } 160-4.5 MCG/ACT MCG/ACT MCG/ACT Citalopram Citalopram No Citalopram Hydrobromid Hydrobromid Hydrobromi e 20 MG e 20 MG de 20 MG Ferrous Ferrous No 1{table QD Ferrous Sulfate 325 Sulfate 325 t} Sulfate (65 Fe) MG (65 Fe) MG 325 (65 Fe) MG traZODone traZODone No traZODone HCl 150 MG HCl 150 MG HCl 150 MG busPIRone busPIRone No busPIRone HCl 10 MG HCl 10 MG HCl 10 MG Entresto Entresto No 1{table BID Entresto 49-51 MG 49-51 MG t} 49-51 MG Aspir-81 81 Aspir-81 81 No 1{table QD Aspir-81 MG MG t} 81 MG Levothyroxi Levothyroxi No Levothyrox ne Sodium ne Sodium ine Sodium 100 MCG 100 MCG 100 MCG ProAir HFA ProAir HFA No 2{puffs QID ProAir HFA 108 (90 108 (90 _as_nee 108 (90 Base) Base) ded} Base) MCG/ACT MCG/ACT MCG/ACT Pantoprazol Pantoprazol No Pantoprazo e Sodium 40 e Sodium 40 le Sodium MG MG 40 MG Vitamin D3 Vitamin D3 No 1{capsu QD Vitamin D3 1000 UNIT 1000 UNIT le} 1000 UNIT Pravastatin Pravastatin No Pravastati Sodium 40 Sodium 40 n Sodium MG MG 40 MG sulfaSALAzi sulfaSALAzi No 2{table QD sulfaSALAz ne 500 MG ne 500 MG t} ine 500 MG Plavix 75 Plavix 75 No 1{table QD Plavix 75 MG MG t} MG Furosemide Furosemide No Furosemide 20 MG 20 MG 20 MG Coreg 3.125 Coreg 3.125 No Coreg MG MG 3.125 MG Symbicort Symbicort No 2{puffs BID Symbicort 160-4.5 160-4.5 } 160-4.5 MCG/ACT MCG/ACT MCG/ACT Citalopram Citalopram No Citalopram Hydrobromid Hydrobromid Hydrobromi e 20 MG e 20 MG de 20 MG Ferrous Ferrous No 1{table QD Ferrous Sulfate 325 Sulfate 325 t} Sulfate (65 Fe) MG (65 Fe) MG 325 (65 Fe) MG traZODone traZODone No traZODone HCl 150 MG HCl 150 MG HCl 150 MG busPIRone busPIRone No busPIRone HCl 10 MG HCl 10 MG HCl 10 MG Entresto Entresto No 1{table BID Entresto 49-51 MG 49-51 MG t} 49-51 MG Furosemide Furosemide No Furosemide 20 MG 20 MG 20 MG Furosemide Furosemide No 1{table QD Furosemide 20 MG 20 MG t} 20 MG busPIRone busPIRone No busPIRone HCl 10 MG HCl 10 MG HCl 10 MG Coreg 3.125 Coreg 3.125 No Coreg MG MG 3.125 MG traZODone traZODone No 2{table QD traZODone HCl 100 MG HCl 100 MG t_at_be HCl 100 MG dtime} Pantoprazol Pantoprazol No Pantoprazo e Sodium 40 e Sodium 40 le Sodium MG MG 40 MG Levothyroxi Levothyroxi No Levothyrox ne Sodium ne Sodium ine Sodium 100 MCG 100 MCG 100 MCG Pravastatin Pravastatin No Pravastati Sodium 40 Sodium 40 n Sodium MG MG 40 MG Symbicort Symbicort No 2{puffs BID Symbicort 160-4.5 160-4.5 } 160-4.5 MCG/ACT MCG/ACT MCG/ACT Levothyroxi Levothyroxi No QD Levothyrox ne Sodium ne Sodium ine Sodium 112 MCG 112 MCG 112 MCG Pantoprazol Pantoprazol No 1{table QD Pantoprazo e Sodium 40 e Sodium 40 t} le Sodium MG MG 40 MG traZODone traZODone No traZODone HCl 150 MG HCl 150 MG HCl 150 MG Citalopram Citalopram No 1{table QD Citalopram Hydrobromid Hydrobromid t} Hydrobromi e 20 MG e 20 MG de 20 MG busPIRone busPIRone No 1{table BID busPIRone HCl 10 MG HCl 10 MG t} HCl 10 MG Pravastatin Pravastatin No 1{table QD Pravastati Sodium 40 Sodium 40 t} n Sodium MG MG 40 MG sulfaSALAzi sulfaSALAzi No 2{table QD sulfaSALAz ne 500 MG ne 500 MG t} ine 500 MG Ferrous Ferrous No 1{table QD Ferrous Sulfate 325 Sulfate 325 t} Sulfate (65 Fe) MG (65 Fe) MG 325 (65 Fe) MG Aspir-81 81 Aspir-81 81 No 1{table QD Aspir-81 MG MG t} 81 MG Vitamin D3 Vitamin D3 No 1{capsu QD Vitamin D3 1000 UNIT 1000 UNIT le} 1000 UNIT ProAir HFA ProAir HFA No 2{puffs QID ProAir HFA 108 (90 108 (90 _as_nee 108 (90 Base) Base) ded} Base) MCG/ACT MCG/ACT MCG/ACT Entresto Entresto No 1{table BID Entresto 49-51 MG 49-51 MG t} 49-51 MG Plavix 75 Plavix 75 No 1{table QD Plavix 75 MG MG t} MG Citalopram Citalopram No Citalopram Hydrobromid Hydrobromid Hydrobromi e 20 MG e 20 MG de 20 MG Symbicort Symbicort No 2{puffs BID Symbicort 160-4.5 160-4.5 } 160-4.5 MCG/ACT MCG/ACT MCG/ACT Furosemide Furosemide No Furosemide 20 MG 20 MG 20 MG ProAir HFA ProAir HFA No 2{puffs QID ProAir HFA 108 (90 108 (90 _as_nee 108 (90 Base) Base) ded} Base) MCG/ACT MCG/ACT MCG/ACT Levothyroxi Levothyroxi No QD Levothyrox ne Sodium ne Sodium ine Sodium 112 MCG 112 MCG 112 MCG busPIRone busPIRone No busPIRone HCl 10 MG HCl 10 MG HCl 10 MG Aspir-81 81 Aspir-81 81 No 1{table QD Aspir-81 MG MG t} 81 MG sulfaSALAzi sulfaSALAzi No 2{table QD sulfaSALAz ne 500 MG ne 500 MG t} ine 500 MG Pantoprazol Pantoprazol No Pantoprazo e Sodium 40 e Sodium 40 le Sodium MG MG 40 MG Citalopram Citalopram No Citalopram Hydrobromid Hydrobromid Hydrobromi e 20 MG e 20 MG de 20 MG Pravastatin Pravastatin No 1{table QD Pravastati Sodium 40 Sodium 40 t} n Sodium MG MG 40 MG Ferrous Ferrous No 1{table QD Ferrous Sulfate 325 Sulfate 325 t} Sulfate (65 Fe) MG (65 Fe) MG 325 (65 Fe) MG Vitamin D3 Vitamin D3 No 1{capsu QD Vitamin D3 1000 UNIT 1000 UNIT le} 1000 UNIT Levothyroxi Levothyroxi No Levothyrox ne Sodium ne Sodium ine Sodium 100 MCG 100 MCG 100 MCG Coreg 3.125 Coreg 3.125 No Coreg MG MG 3.125 MG Pravastatin Pravastatin No Pravastati Sodium 40 Sodium 40 n Sodium MG MG 40 MG Pantoprazol Pantoprazol No 1{table QD Pantoprazo e Sodium 40 e Sodium 40 t} le Sodium MG MG 40 MG traZODone traZODone No 2{table QD traZODone HCl 100 MG HCl 100 MG t_at_be HCl 100 MG dtime} traZODone traZODone No traZODone HCl 150 MG HCl 150 MG HCl 150 MG Citalopram Citalopram No 1{table QD Citalopram Hydrobromid Hydrobromid t} Hydrobromi e 20 MG e 20 MG de 20 MG Plavix 75 Plavix 75 No 1{table QD Plavix 75 MG MG t} MG Entresto Entresto No 1{table BID Entresto 49-51 MG 49-51 MG t} 49-51 MG Symbicort Symbicort No 2{puffs BID Symbicort 160-4.5 160-4.5 } 160-4.5 MCG/ACT MCG/ACT MCG/ACT Furosemide Furosemide No Furosemide 20 MG 20 MG 20 MG ProAir HFA ProAir HFA No 2{puffs QID ProAir HFA 108 (90 108 (90 _as_nee 108 (90 Base) Base) ded} Base) MCG/ACT MCG/ACT MCG/ACT Levothyroxi Levothyroxi No QD Levothyrox ne Sodium ne Sodium ine Sodium 112 MCG 112 MCG 112 MCG busPIRone busPIRone No busPIRone HCl 10 MG HCl 10 MG HCl 10 MG Aspir-81 81 Aspir-81 81 No 1{table QD Aspir-81 MG MG t} 81 MG sulfaSALAzi sulfaSALAzi No 2{table QD sulfaSALAz ne 500 MG ne 500 MG t} ine 500 MG Pantoprazol Pantoprazol No Pantoprazo e Sodium 40 e Sodium 40 le Sodium MG MG 40 MG Citalopram Citalopram No Citalopram Hydrobromid Hydrobromid Hydrobromi e 20 MG e 20 MG de 20 MG Pravastatin Pravastatin No 1{table QD Pravastati Sodium 40 Sodium 40 t} n Sodium MG MG 40 MG Ferrous Ferrous No 1{table QD Ferrous Sulfate 325 Sulfate 325 t} Sulfate (65 Fe) MG (65 Fe) MG 325 (65 Fe) MG Vitamin D3 Vitamin D3 No 1{capsu QD Vitamin D3 1000 UNIT 1000 UNIT le} 1000 UNIT Levothyroxi Levothyroxi No Levothyrox ne Sodium ne Sodium ine Sodium 100 MCG 100 MCG 100 MCG Coreg 3.125 Coreg 3.125 No Coreg MG MG 3.125 MG Pravastatin Pravastatin No Pravastati Sodium 40 Sodium 40 n Sodium MG MG 40 MG Pantoprazol Pantoprazol No 1{table QD Pantoprazo e Sodium 40 e Sodium 40 t} le Sodium MG MG 40 MG traZODone traZODone No 2{table QD traZODone HCl 100 MG HCl 100 MG t_at_be HCl 100 MG dtime} traZODone traZODone No traZODone HCl 150 MG HCl 150 MG HCl 150 MG Citalopram Citalopram No 1{table QD Citalopram Hydrobromid Hydrobromid t} Hydrobromi e 20 MG e 20 MG de 20 MG Plavix 75 Plavix 75 No 1{table QD Plavix 75 MG MG t} MG Entresto Entresto No 1{table BID Entresto 49-51 MG 49-51 MG t} 49-51 MG Levothyroxi Levothyroxi No Levothyrox ne Sodium ne Sodium ine Sodium 112 MCG 112 MCG 112 MCG Pantoprazol Pantoprazol No 1{table QD Pantoprazo e Sodium 40 e Sodium 40 t} le Sodium MG MG 40 MG Citalopram Citalopram No Citalopram Hydrobromid Hydrobromid Hydrobromi e 20 MG e 20 MG de 20 MG sulfaSALAzi sulfaSALAzi No 2{table QD sulfaSALAz ne 500 MG ne 500 MG t} ine 500 MG Entresto Entresto No 1{table BID Entresto 49-51 MG 49-51 MG t} 49-51 MG Symbicort Symbicort No 2{puffs BID Symbicort 160-4.5 160-4.5 } 160-4.5 MCG/ACT MCG/ACT MCG/ACT Levothyroxi Levothyroxi No Levothyrox ne Sodium ne Sodium ine Sodium 100 MCG 100 MCG 100 MCG Coreg 3.125 Coreg 3.125 No Coreg MG MG 3.125 MG Ferrous Ferrous No 1{table QD Ferrous Sulfate 325 Sulfate 325 t} Sulfate (65 Fe) MG (65 Fe) MG 325 (65 Fe) MG Pravastatin Pravastatin No Pravastati Sodium 40 Sodium 40 n Sodium MG MG 40 MG Pravastatin Pravastatin No 1{table QD Pravastati Sodium 40 Sodium 40 t} n Sodium MG MG 40 MG ProAir HFA ProAir HFA No 2{puffs QID ProAir HFA 108 (90 108 (90 _as_nee 108 (90 Base) Base) ded} Base) MCG/ACT MCG/ACT MCG/ACT traZODone traZODone No traZODone HCl 150 MG HCl 150 MG HCl 150 MG traZODone traZODone No 2{table QD traZODone HCl 100 MG HCl 100 MG t_at_be HCl 100 MG dtime} Aspir-81 81 Aspir-81 81 No 1{table QD Aspir-81 MG MG t} 81 MG Furosemide Furosemide No Furosemide 20 MG 20 MG 20 MG Pantoprazol Pantoprazol No Pantoprazo e Sodium 40 e Sodium 40 le Sodium MG MG 40 MG Plavix 75 Plavix 75 No 1{table QD Plavix 75 MG MG t} MG busPIRone busPIRone No busPIRone HCl 10 MG HCl 10 MG HCl 10 MG Vitamin D3 Vitamin D3 No 1{capsu QD Vitamin D3 1000 UNIT 1000 UNIT le} 1000 UNIT Levothyroxi Levothyroxi No Levothyrox ne Sodium ne Sodium ine Sodium 112 MCG 112 MCG 112 MCG Pantoprazol Pantoprazol No 1{table QD Pantoprazo e Sodium 40 e Sodium 40 t} le Sodium MG MG 40 MG Citalopram Citalopram No Citalopram Hydrobromid Hydrobromid Hydrobromi e 20 MG e 20 MG de 20 MG sulfaSALAzi sulfaSALAzi No 2{table QD sulfaSALAz ne 500 MG ne 500 MG t} ine 500 MG Entresto Entresto No 1{table BID Entresto 49-51 MG 49-51 MG t} 49-51 MG Symbicort Symbicort No 2{puffs BID Symbicort 160-4.5 160-4.5 } 160-4.5 MCG/ACT MCG/ACT MCG/ACT Levothyroxi Levothyroxi No Levothyrox ne Sodium ne Sodium ine Sodium 100 MCG 100 MCG 100 MCG Coreg 3.125 Coreg 3.125 No Coreg MG MG 3.125 MG Ferrous Ferrous No 1{table QD Ferrous Sulfate 325 Sulfate 325 t} Sulfate (65 Fe) MG (65 Fe) MG 325 (65 Fe) MG Pravastatin Pravastatin No Pravastati Sodium 40 Sodium 40 n Sodium MG MG 40 MG Pravastatin Pravastatin No 1{table QD Pravastati Sodium 40 Sodium 40 t} n Sodium MG MG 40 MG ProAir HFA ProAir HFA No 2{puffs QID ProAir HFA 108 (90 108 (90 _as_nee 108 (90 Base) Base) ded} Base) MCG/ACT MCG/ACT MCG/ACT traZODone traZODone No traZODone HCl 150 MG HCl 150 MG HCl 150 MG traZODone traZODone No 2{table QD traZODone HCl 100 MG HCl 100 MG t_at_be HCl 100 MG dtime} Aspir-81 81 Aspir-81 81 No 1{table QD Aspir-81 MG MG t} 81 MG Furosemide Furosemide No Furosemide 20 MG 20 MG 20 MG Pantoprazol Pantoprazol No Pantoprazo e Sodium 40 e Sodium 40 le Sodium MG MG 40 MG Plavix 75 Plavix 75 No 1{table QD Plavix 75 MG MG t} MG busPIRone busPIRone No busPIRone HCl 10 MG HCl 10 MG HCl 10 MG Vitamin D3 Vitamin D3 No 1{capsu QD Vitamin D3 1000 UNIT 1000 UNIT le} 1000 UNIT Pantoprazol Pantoprazol No 1{table QD Pantoprazo e Sodium 40 e Sodium 40 t} le Sodium MG MG 40 MG Vitamin D3 Vitamin D3 No 1{capsu QD Vitamin D3 1000 UNIT 1000 UNIT le} 1000 UNIT Entresto Entresto No 1{table BID Entresto 49-51 MG 49-51 MG t} 49-51 MG traZODone traZODone No 2{table QD traZODone HCl 100 MG HCl 100 MG t_at_be HCl 100 MG dtime} Levothyroxi Levothyroxi No Levothyrox ne Sodium ne Sodium ine Sodium 112 MCG 112 MCG 112 MCG Coreg 3.125 Coreg 3.125 No Coreg MG MG 3.125 MG Citalopram Citalopram No Citalopram Hydrobromid Hydrobromid Hydrobromi e 20 MG e 20 MG de 20 MG Levothyroxi Levothyroxi No Levothyrox ne Sodium ne Sodium ine Sodium 100 MCG 100 MCG 100 MCG Ferrous Ferrous No 1{table QD Ferrous Sulfate 325 Sulfate 325 t} Sulfate (65 Fe) MG (65 Fe) MG 325 (65 Fe) MG Pravastatin Pravastatin No 1{table QD Pravastati Sodium 40 Sodium 40 t} n Sodium MG MG 40 MG sulfaSALAzi sulfaSALAzi No 2{table QD sulfaSALAz ne 500 MG ne 500 MG t} ine 500 MG Aspir-81 81 Aspir-81 81 No 1{table QD Aspir-81 MG MG t} 81 MG Furosemide Furosemide No Furosemide 20 MG 20 MG 20 MG busPIRone busPIRone No busPIRone HCl 10 MG HCl 10 MG HCl 10 MG Pravastatin Pravastatin No Pravastati Sodium 40 Sodium 40 n Sodium MG MG 40 MG Symbicort Symbicort No 2{puffs BID Symbicort 160-4.5 160-4.5 } 160-4.5 MCG/ACT MCG/ACT MCG/ACT Pantoprazol Pantoprazol No Pantoprazo e Sodium 40 e Sodium 40 le Sodium MG MG 40 MG Plavix 75 Plavix 75 No 1{table QD Plavix 75 MG MG t} MG ProAir HFA ProAir HFA No 2{puffs QID ProAir HFA 108 (90 108 (90 _as_nee 108 (90 Base) Base) ded} Base) MCG/ACT MCG/ACT MCG/ACT traZODone traZODone No traZODone HCl 150 MG HCl 150 MG HCl 150 MG Ferrous Ferrous No 1{table QD Ferrous Sulfate 325 Sulfate 325 t} Sulfate (65 Fe) MG (65 Fe) MG 325 (65 Fe) MG Pantoprazol Pantoprazol No Pantoprazo e Sodium 40 e Sodium 40 le Sodium MG MG 40 MG Citalopram Citalopram No Citalopram Hydrobromid Hydrobromid Hydrobromi e 20 MG e 20 MG de 20 MG Coreg 3.125 Coreg 3.125 No Coreg MG MG 3.125 MG Vitamin D3 Vitamin D3 No 1{capsu QD Vitamin D3 1000 UNIT 1000 UNIT le} 1000 UNIT Entresto Entresto No 1{table BID Entresto 49-51 MG 49-51 MG t} 49-51 MG busPIRone busPIRone No busPIRone HCl 10 MG HCl 10 MG HCl 10 MG Symbicort Symbicort No 2{puffs BID Symbicort 160-4.5 160-4.5 } 160-4.5 MCG/ACT MCG/ACT MCG/ACT Pravastatin Pravastatin No 1{table QD Pravastati Sodium 40 Sodium 40 t} n Sodium MG MG 40 MG Levothyroxi Levothyroxi No Levothyrox ne Sodium ne Sodium ine Sodium 100 MCG 100 MCG 100 MCG Levothyroxi Levothyroxi No Levothyrox ne Sodium ne Sodium ine Sodium 112 MCG 112 MCG 112 MCG ProAir HFA ProAir HFA No 2{puffs QID ProAir HFA 108 (90 108 (90 _as_nee 108 (90 Base) Base) ded} Base) MCG/ACT MCG/ACT MCG/ACT sulfaSALAzi sulfaSALAzi No 2{table QD sulfaSALAz ne 500 MG ne 500 MG t} ine 500 MG busPIRone busPIRone No 1{table BID busPIRone HCl 10 MG HCl 10 MG t} HCl 10 MG Aspir-81 81 Aspir-81 81 No 1{table QD Aspir-81 MG MG t} 81 MG traZODone traZODone No traZODone HCl 150 MG HCl 150 MG HCl 150 MG traZODone traZODone No 2{table QD traZODone HCl 100 MG HCl 100 MG t_at_be HCl 100 MG dtime} Furosemide Furosemide No Furosemide 20 MG 20 MG 20 MG Plavix 75 Plavix 75 No 1{table QD Plavix 75 MG MG t} MG traZODone traZODone No traZODone HCl 100 MG HCl 100 MG HCl 100 MG Pravastatin Pravastatin No Pravastati Sodium 40 Sodium 40 n Sodium MG MG 40 MG Pantoprazol Pantoprazol No 1{table QD Pantoprazo e Sodium 40 e Sodium 40 t} le Sodium MG MG 40 MG Ferrous Ferrous No 1{table QD Ferrous Sulfate 325 Sulfate 325 t} Sulfate (65 Fe) MG (65 Fe) MG 325 (65 Fe) MG Pantoprazol Pantoprazol No Pantoprazo e Sodium 40 e Sodium 40 le Sodium MG MG 40 MG Citalopram Citalopram No Citalopram Hydrobromid Hydrobromid Hydrobromi e 20 MG e 20 MG de 20 MG Coreg 3.125 Coreg 3.125 No Coreg MG MG 3.125 MG Vitamin D3 Vitamin D3 No 1{capsu QD Vitamin D3 1000 UNIT 1000 UNIT le} 1000 UNIT Entresto Entresto No 1{table BID Entresto 49-51 MG 49-51 MG t} 49-51 MG busPIRone busPIRone No busPIRone HCl 10 MG HCl 10 MG HCl 10 MG Symbicort Symbicort No 2{puffs BID Symbicort 160-4.5 160-4.5 } 160-4.5 MCG/ACT MCG/ACT MCG/ACT Pravastatin Pravastatin No 1{table QD Pravastati Sodium 40 Sodium 40 t} n Sodium MG MG 40 MG Levothyroxi Levothyroxi No Levothyrox ne Sodium ne Sodium ine Sodium 100 MCG 100 MCG 100 MCG Levothyroxi Levothyroxi No Levothyrox ne Sodium ne Sodium ine Sodium 112 MCG 112 MCG 112 MCG ProAir HFA ProAir HFA No 2{puffs QID ProAir HFA 108 (90 108 (90 _as_nee 108 (90 Base) Base) ded} Base) MCG/ACT MCG/ACT MCG/ACT sulfaSALAzi sulfaSALAzi No 2{table QD sulfaSALAz ne 500 MG ne 500 MG t} ine 500 MG busPIRone busPIRone No 1{table BID busPIRone HCl 10 MG HCl 10 MG t} HCl 10 MG Aspir-81 81 Aspir-81 81 No 1{table QD Aspir-81 MG MG t} 81 MG traZODone traZODone No traZODone HCl 150 MG HCl 150 MG HCl 150 MG traZODone traZODone No 2{table QD traZODone HCl 100 MG HCl 100 MG t_at_be HCl 100 MG dtime} Furosemide Furosemide No Furosemide 20 MG 20 MG 20 MG Plavix 75 Plavix 75 No 1{table QD Plavix 75 MG MG t} MG traZODone traZODone No traZODone HCl 100 MG HCl 100 MG HCl 100 MG Pravastatin Pravastatin No Pravastati Sodium 40 Sodium 40 n Sodium MG MG 40 MG Pantoprazol Pantoprazol No 1{table QD Pantoprazo e Sodium 40 e Sodium 40 t} le Sodium MG MG 40 MG Ferrous Ferrous No 1{table QD Ferrous Sulfate 325 Sulfate 325 t} Sulfate (65 Fe) MG (65 Fe) MG 325 (65 Fe) MG Pantoprazol Pantoprazol No Pantoprazo e Sodium 40 e Sodium 40 le Sodium MG MG 40 MG Citalopram Citalopram No Citalopram Hydrobromid Hydrobromid Hydrobromi e 20 MG e 20 MG de 20 MG Coreg 3.125 Coreg 3.125 No Coreg MG MG 3.125 MG Vitamin D3 Vitamin D3 No 1{capsu QD Vitamin D3 1000 UNIT 1000 UNIT le} 1000 UNIT Entresto Entresto No 1{table BID Entresto 49-51 MG 49-51 MG t} 49-51 MG busPIRone busPIRone No busPIRone HCl 10 MG HCl 10 MG HCl 10 MG Symbicort Symbicort No 2{puffs BID Symbicort 160-4.5 160-4.5 } 160-4.5 MCG/ACT MCG/ACT MCG/ACT Pravastatin Pravastatin No 1{table QD Pravastati Sodium 40 Sodium 40 t} n Sodium MG MG 40 MG Levothyroxi Levothyroxi No Levothyrox ne Sodium ne Sodium ine Sodium 100 MCG 100 MCG 100 MCG Levothyroxi Levothyroxi No Levothyrox ne Sodium ne Sodium ine Sodium 112 MCG 112 MCG 112 MCG ProAir HFA ProAir HFA No 2{puffs QID ProAir HFA 108 (90 108 (90 _as_nee 108 (90 Base) Base) ded} Base) MCG/ACT MCG/ACT MCG/ACT sulfaSALAzi sulfaSALAzi No 2{table QD sulfaSALAz ne 500 MG ne 500 MG t} ine 500 MG busPIRone busPIRone No 1{table BID busPIRone HCl 10 MG HCl 10 MG t} HCl 10 MG Aspir-81 81 Aspir-81 81 No 1{table QD Aspir-81 MG MG t} 81 MG traZODone traZODone No traZODone HCl 150 MG HCl 150 MG HCl 150 MG traZODone traZODone No 2{table QD traZODone HCl 100 MG HCl 100 MG t_at_be HCl 100 MG dtime} Furosemide Furosemide No Furosemide 20 MG 20 MG 20 MG Plavix 75 Plavix 75 No 1{table QD Plavix 75 MG MG t} MG traZODone traZODone No traZODone HCl 100 MG HCl 100 MG HCl 100 MG Pravastatin Pravastatin No Pravastati Sodium 40 Sodium 40 n Sodium MG MG 40 MG Pantoprazol Pantoprazol No 1{table QD Pantoprazo e Sodium 40 e Sodium 40 t} le Sodium MG MG 40 MG busPIRone busPIRone No busPIRone HCl 10 MG HCl 10 MG HCl 10 MG Pravastatin Pravastatin No Pravastati Sodium 40 Sodium 40 n Sodium MG MG 40 MG sulfaSALAzi sulfaSALAzi No 2{table QD sulfaSALAz ne 500 MG ne 500 MG t} ine 500 MG traZODone traZODone No traZODone HCl 150 MG HCl 150 MG HCl 150 MG Pravastatin Pravastatin No 1{table QD Pravastati Sodium 40 Sodium 40 t} n Sodium MG MG 40 MG Pantoprazol Pantoprazol No Pantoprazo e Sodium 40 e Sodium 40 le Sodium MG MG 40 MG Aspir-81 81 Aspir-81 81 No 1{table QD Aspir-81 MG MG t} 81 MG Levothyroxi Levothyroxi No Levothyrox ne Sodium ne Sodium ine Sodium 100 MCG 100 MCG 100 MCG Levothyroxi Levothyroxi No QD Levothyrox ne Sodium ne Sodium ine Sodium 112 MCG 112 MCG 112 MCG Coreg 3.125 Coreg 3.125 No Coreg MG MG 3.125 MG Citalopram Citalopram No 1{table QD Citalopram Hydrobromid Hydrobromid t} Hydrobromi e 20 MG e 20 MG de 20 MG Pantoprazol Pantoprazol No 1{table QD Pantoprazo e Sodium 40 e Sodium 40 t} le Sodium MG MG 40 MG Ferrous Ferrous No 1{table QD Ferrous Sulfate 325 Sulfate 325 t} Sulfate (65 Fe) MG (65 Fe) MG 325 (65 Fe) MG Plavix 75 Plavix 75 No 1{table QD Plavix 75 MG MG t} MG busPIRone busPIRone No 1{table BID busPIRone HCl 10 MG HCl 10 MG t} HCl 10 MG traZODone traZODone No traZODone HCl 100 MG HCl 100 MG HCl 100 MG Furosemide Furosemide No Furosemide 20 MG 20 MG 20 MG Levothyroxi Levothyroxi No Levothyrox ne Sodium ne Sodium ine Sodium 112 MCG 112 MCG 112 MCG Vitamin D3 Vitamin D3 No 1{capsu QD Vitamin D3 1000 UNIT 1000 UNIT le} 1000 UNIT Citalopram Citalopram No Citalopram Hydrobromid Hydrobromid Hydrobromi e 20 MG e 20 MG de 20 MG traZODone traZODone No 2{table QD traZODone HCl 100 MG HCl 100 MG t_at_be HCl 100 MG dtime} ProAir HFA ProAir HFA No 2{puffs QID ProAir HFA 108 (90 108 (90 _as_nee 108 (90 Base) Base) ded} Base) MCG/ACT MCG/ACT MCG/ACT Symbicort Symbicort No 2{puffs BID Symbicort 160-4.5 160-4.5 } 160-4.5 MCG/ACT MCG/ACT MCG/ACT Entresto Entresto No 1{table BID Entresto 49-51 MG 49-51 MG t} 49-51 MG Furosemide Furosemide No 1{table QD Furosemide 20 MG 20 MG t} 20 MG busPIRone busPIRone No busPIRone HCl 10 MG HCl 10 MG HCl 10 MG Pravastatin Pravastatin No Pravastati Sodium 40 Sodium 40 n Sodium MG MG 40 MG sulfaSALAzi sulfaSALAzi No 2{table QD sulfaSALAz ne 500 MG ne 500 MG t} ine 500 MG traZODone traZODone No traZODone HCl 150 MG HCl 150 MG HCl 150 MG Pravastatin Pravastatin No 1{table QD Pravastati Sodium 40 Sodium 40 t} n Sodium MG MG 40 MG Pantoprazol Pantoprazol No Pantoprazo e Sodium 40 e Sodium 40 le Sodium MG MG 40 MG Aspir-81 81 Aspir-81 81 No 1{table QD Aspir-81 MG MG t} 81 MG Levothyroxi Levothyroxi No Levothyrox ne Sodium ne Sodium ine Sodium 100 MCG 100 MCG 100 MCG Levothyroxi Levothyroxi No QD Levothyrox ne Sodium ne Sodium ine Sodium 112 MCG 112 MCG 112 MCG Coreg 3.125 Coreg 3.125 No Coreg MG MG 3.125 MG Citalopram Citalopram No 1{table QD Citalopram Hydrobromid Hydrobromid t} Hydrobromi e 20 MG e 20 MG de 20 MG Pantoprazol Pantoprazol No 1{table QD Pantoprazo e Sodium 40 e Sodium 40 t} le Sodium MG MG 40 MG Ferrous Ferrous No 1{table QD Ferrous Sulfate 325 Sulfate 325 t} Sulfate (65 Fe) MG (65 Fe) MG 325 (65 Fe) MG Plavix 75 Plavix 75 No 1{table QD Plavix 75 MG MG t} MG busPIRone busPIRone No 1{table BID busPIRone HCl 10 MG HCl 10 MG t} HCl 10 MG traZODone traZODone No traZODone HCl 100 MG HCl 100 MG HCl 100 MG Furosemide Furosemide No Furosemide 20 MG 20 MG 20 MG Levothyroxi Levothyroxi No Levothyrox ne Sodium ne Sodium ine Sodium 112 MCG 112 MCG 112 MCG Vitamin D3 Vitamin D3 No 1{capsu QD Vitamin D3 1000 UNIT 1000 UNIT le} 1000 UNIT Citalopram Citalopram No Citalopram Hydrobromid Hydrobromid Hydrobromi e 20 MG e 20 MG de 20 MG traZODone traZODone No 2{table QD traZODone HCl 100 MG HCl 100 MG t_at_be HCl 100 MG dtime} ProAir HFA ProAir HFA No 2{puffs QID ProAir HFA 108 (90 108 (90 _as_nee 108 (90 Base) Base) ded} Base) MCG/ACT MCG/ACT MCG/ACT Symbicort Symbicort No 2{puffs BID Symbicort 160-4.5 160-4.5 } 160-4.5 MCG/ACT MCG/ACT MCG/ACT Entresto Entresto No 1{table BID Entresto 49-51 MG 49-51 MG t} 49-51 MG Furosemide Furosemide No 1{table QD Furosemide 20 MG 20 MG t} 20 MG Pravastatin Pravastatin No 1{table QD Pravastati Sodium 40 Sodium 40 t} n Sodium MG MG 40 MG Aspir-81 81 Aspir-81 81 No 1{table QD Aspir-81 MG MG t} 81 MG Levothyroxi Levothyroxi No Levothyrox ne Sodium ne Sodium ine Sodium 100 MCG 100 MCG 100 MCG Furosemide Furosemide No Furosemide 20 MG 20 MG 20 MG Levothyroxi Levothyroxi No QD Levothyrox ne Sodium ne Sodium ine Sodium 112 MCG 112 MCG 112 MCG Pantoprazol Pantoprazol No Pantoprazo e Sodium 40 e Sodium 40 le Sodium MG MG 40 MG Plavix 75 Plavix 75 No 1{table QD Plavix 75 MG MG t} MG Ferrous Ferrous No 1{table QD Ferrous Sulfate 325 Sulfate 325 t} Sulfate (65 Fe) MG (65 Fe) MG 325 (65 Fe) MG traZODone traZODone No traZODone HCl 100 MG HCl 100 MG HCl 100 MG Vitamin D3 Vitamin D3 No 1{capsu QD Vitamin D3 1000 UNIT 1000 UNIT le} 1000 UNIT sulfaSALAzi sulfaSALAzi No 2{table QD sulfaSALAz ne 500 MG ne 500 MG t} ine 500 MG traZODone traZODone No traZODone HCl 150 MG HCl 150 MG HCl 150 MG Citalopram Citalopram No 1{table QD Citalopram Hydrobromid Hydrobromid t} Hydrobromi e 20 MG e 20 MG de 20 MG Citalopram Citalopram No Citalopram Hydrobromid Hydrobromid Hydrobromi e 20 MG e 20 MG de 20 MG Levothyroxi Levothyroxi No Levothyrox ne Sodium ne Sodium ine Sodium 112 MCG 112 MCG 112 MCG Pravastatin Pravastatin No Pravastati Sodium 40 Sodium 40 n Sodium MG MG 40 MG busPIRone busPIRone No 1{table BID busPIRone HCl 10 MG HCl 10 MG t} HCl 10 MG busPIRone busPIRone No busPIRone HCl 10 MG HCl 10 MG HCl 10 MG Coreg 3.125 Coreg 3.125 No Coreg MG MG 3.125 MG Pantoprazol Pantoprazol No 1{table QD Pantoprazo e Sodium 40 e Sodium 40 t} le Sodium MG MG 40 MG ProAir HFA ProAir HFA No 2{puffs QID ProAir HFA 108 (90 108 (90 _as_nee 108 (90 Base) Base) ded} Base) MCG/ACT MCG/ACT MCG/ACT Symbicort Symbicort No 2{puffs BID Symbicort 160-4.5 160-4.5 } 160-4.5 MCG/ACT MCG/ACT MCG/ACT Entresto Entresto No 1{table BID Entresto 49-51 MG 49-51 MG t} 49-51 MG Furosemide Furosemide No 1{table QD Furosemide 20 MG 20 MG t} 20 MG Aspir-81 81 Aspir-81 81 No 1{table QD Aspir-81 MG MG t} 81 MG Levothyroxi Levothyroxi No QD Levothyrox ne Sodium ne Sodium ine Sodium 88 MCG 88 MCG 88 MCG Levothyroxi Levothyroxi No Levothyrox ne Sodium ne Sodium ine Sodium 100 MCG 100 MCG 100 MCG Furosemide Furosemide No Furosemide 20 MG 20 MG 20 MG Pravastatin Pravastatin No 1{table QD Pravastati Sodium 40 Sodium 40 t} n Sodium MG MG 40 MG Pantoprazol Pantoprazol No Pantoprazo e Sodium 40 e Sodium 40 le Sodium MG MG 40 MG Plavix 75 Plavix 75 No 1{table QD Plavix 75 MG MG t} MG Ferrous Ferrous No 1{table QD Ferrous Sulfate 325 Sulfate 325 t} Sulfate (65 Fe) MG (65 Fe) MG 325 (65 Fe) MG traZODone traZODone No traZODone HCl 100 MG HCl 100 MG HCl 100 MG Vitamin D3 Vitamin D3 No 1{capsu QD Vitamin D3 1000 UNIT 1000 UNIT le} 1000 UNIT sulfaSALAzi sulfaSALAzi No 2{table QD sulfaSALAz ne 500 MG ne 500 MG t} ine 500 MG traZODone traZODone No traZODone HCl 150 MG HCl 150 MG HCl 150 MG Citalopram Citalopram No 1{table QD Citalopram Hydrobromid Hydrobromid t} Hydrobromi e 20 MG e 20 MG de 20 MG Citalopram Citalopram No Citalopram Hydrobromid Hydrobromid Hydrobromi e 20 MG e 20 MG de 20 MG Levothyroxi Levothyroxi No Levothyrox ne Sodium ne Sodium ine Sodium 112 MCG 112 MCG 112 MCG Pravastatin Pravastatin No Pravastati Sodium 40 Sodium 40 n Sodium MG MG 40 MG busPIRone busPIRone No 1{table BID busPIRone HCl 10 MG HCl 10 MG t} HCl 10 MG busPIRone busPIRone No busPIRone HCl 10 MG HCl 10 MG HCl 10 MG Coreg 3.125 Coreg 3.125 No Coreg MG MG 3.125 MG Pantoprazol Pantoprazol No 1{table QD Pantoprazo e Sodium 40 e Sodium 40 t} le Sodium MG MG 40 MG ProAir HFA ProAir HFA No 2{puffs QID ProAir HFA 108 (90 108 (90 _as_nee 108 (90 Base) Base) ded} Base) MCG/ACT MCG/ACT MCG/ACT Symbicort Symbicort No 2{puffs BID Symbicort 160-4.5 160-4.5 } 160-4.5 MCG/ACT MCG/ACT MCG/ACT Entresto Entresto No 1{table BID Entresto 49-51 MG 49-51 MG t} 49-51 MG Furosemide Furosemide No 1{table QD Furosemide 20 MG 20 MG t} 20 MG Pantoprazol Pantoprazol No Pantoprazo e Sodium 40 e Sodium 40 le Sodium MG MG 40 MG traZODone traZODone No traZODone HCl 150 MG HCl 150 MG HCl 150 MG Pravastatin Pravastatin No Pravastati Sodium 40 Sodium 40 n Sodium MG MG 40 MG Levothyroxi Levothyroxi No Levothyrox ne Sodium ne Sodium ine Sodium 100 MCG 100 MCG 100 MCG Citalopram Citalopram No Citalopram Hydrobromid Hydrobromid Hydrobromi e 20 MG e 20 MG de 20 MG traZODone traZODone No 1{table QD traZODone HCl 300 MG HCl 300 MG t_at_be HCl 300 MG dtime} Levothyroxi Levothyroxi No Levothyrox ne Sodium ne Sodium ine Sodium 112 MCG 112 MCG 112 MCG ProAir HFA ProAir HFA No 2{puffs QID ProAir HFA 108 (90 108 (90 _as_nee 108 (90 Base) Base) ded} Base) MCG/ACT MCG/ACT MCG/ACT Citalopram Citalopram No 1{table QD Citalopram Hydrobromid Hydrobromid t} Hydrobromi e 20 MG e 20 MG de 20 MG Entresto Entresto No 1{table BID Entresto 49-51 MG 49-51 MG t} 49-51 MG Vitamin D3 Vitamin D3 No 1{capsu QD Vitamin D3 1000 UNIT 1000 UNIT le} 1000 UNIT Aspir-81 81 Aspir-81 81 No 1{table QD Aspir-81 MG MG t} 81 MG busPIRone busPIRone No busPIRone HCl 10 MG HCl 10 MG HCl 10 MG Pantoprazol Pantoprazol No 1{table QD Pantoprazo e Sodium 40 e Sodium 40 t} le Sodium MG MG 40 MG busPIRone busPIRone No 1{table BID busPIRone HCl 10 MG HCl 10 MG t} HCl 10 MG traZODone traZODone No traZODone HCl 100 MG HCl 100 MG HCl 100 MG sulfaSALAzi sulfaSALAzi No 2{table QD sulfaSALAz ne 500 MG ne 500 MG t} ine 500 MG Immunizations Ordered Filled Immunization Date Status Comments Sourc e Immunization Name Name FluAD FluAD 2020-08-31 Completed [facility] - 14:52:00 [facility] FluAD FluAD 2020-08-31 Completed [facility] - 14:52:00 [facility] FluAD FluAD 2020-08-31 Completed [facility] - 14:52:00 [facility] FluAD FluAD 2020-08-31 Completed [facility] - 14:52:00 [facility] FluAD FluAD 2020-08-31 Completed [facility] - 14:52:00 [facility] FluAD FluAD 2020-08-31 Completed [facility] - 14:52:00 [facility] FluAD FluAD 2020-08-31 Completed [facility] - 14:52:00 [facility] FluAD FluAD 2020-08-31 Completed [facility] - 14:52:00 [facility] FluAD FluAD 2020-08-31 Completed [facility] - 14:52:00 [facility] FluAD FluAD 2020-08-31 Completed [facility] - 14:52:00 [facility] FluAD FluAD 2020-08-31 Completed [facility] - 14:52:00 [facility] FluAD FluAD 2020-08-31 Completed [facility] - 14:52:00 [facility] FluAD FluAD 2020-08-31 Completed [facility] - 14:52:00 [facility] FluAD FluAD 2020-08-31 Completed [facility] - 14:52:00 [facility] FluAD FluAD 2020-08-31 Completed [facility] - 14:52:00 [facility] FluAD FluAD 2020-08-31 Completed [facility] - 14:52:00 [facility] FluAD FluAD 2020-08-31 Completed [facility] - 14:52:00 [facility] FluAD FluAD 2020-08-31 Completed [facility] - 14:52:00 [facility] FluAD FluAD 2020-08-31 Completed [facility] - 14:52:00 [facility] FluAD FluAD 2020-08-31 Completed [facility] - 14:52:00 [facility] FluAD FluAD 2020-08-31 Completed [facility] - 14:52:00 [facility] FluAD FluAD 2020-08-31 Completed [facility] - 14:52:00 [facility] FluAD FluAD 2020-08-31 Completed [facility] - 14:52:00 [facility] FluAD FluAD 2020-08-31 Completed [facility] - 14:52:00 [facility] FluAD FluAD 2020-08-31 Completed [facility] - 14:52:00 [facility] FluAD FluAD 2020-08-31 Completed [facility] - 14:52:00 [facility] FluAD FluAD 2020-08-31 Completed [facility] - 14:52:00 [facility] FluAD FluAD 2020-08-31 Completed [facility] - 14:52:00 [facility] Influenza High Dose 2020-08-30 Completed [facility] 00:00:00 [facility] Influenza High Dose 2020-08-30 Completed [facility] of 00:00:00 [facility] Influenza High Dose 2020-08-30 Completed [facility] rsity of 00:00:00 [facility] Influenza High Dose 2020-08-30 Completed [facility]ive rsity of 00:00:00 [facility] Influenza High Dose 2020-08-30 Completed [facility]ive rsity of 00:00:00 [facility] Influenza High Dose 2020-08-30 Completed [facility] rsity of 00:00:00 [facility] Influenza High Dose 2020-08-30 Completed [facility] rsity of 00:00:00 [facility] Influenza High Dose 2020-08-30 Completed [facility] rsity of 00:00:00 [facility] Influenza High Dose 2020-08-30 Completed [facility]ive rsity of 00:00:00 [facility] Influenza High Dose 2020-08-30 Completed [facility]ive rsity of 00:00:00 [facility] Influenza High Dose 2020-08-30 Completed [facility] rsity of 00:00:00 [facility] Influenza High Dose 2020-08-30 Completed [facility]ive rsity of 00:00:00 [facility] Influenza High Dose 2020-08-30 Completed [facility]ive rsity of 00:00:00 [facility] Influenza High Dose 2020-08-30 Completed [facility]ive rsity of 00:00:00 [facility] Influenza High Dose 2020-08-30 Completed [facility] rsity of 00:00:00 [facility] Influenza High Dose 2020-08-30 Completed [facility]ive rsity of 00:00:00 [facility] Influenza High Dose 2020-08-30 Completed [facility]ive rsity of 00:00:00 [facility] Vital Signs Vital Name Observation Time Observation Value Comments Source Systolic blood 2022-12-18 18:27:00 113 mm[Hg] [facility]iver [facility] Diastolic blood 2022-12-18 18:27:00 74 mm[Hg] [facility] Heart rate 2022-12-18 18:27:00 84 /min [facility] Body temperature 2022-12-18 18:27:00 36.17 Hermelinda [facility] Respiratory rate 2022-12-18 18:27:00 18 /min [facility] Body height 2022-12-18 18:27:00 170.2 cm [facility] Body weight 2022-12-18 18:27:00 88.27 kg [facility] BMI 2022-12-18 18:27:00 30.48 kg/m2 Univers[facility] ty [facility] Oxygen saturation in 2022-12-18 18:27:00 96 /min [facility] of Arterial blood by [facility] Pulse oximetry Branch height 2022-09-11 13:20:00 67 [in_i] [facility] weight 2022-09-11 13:20:00 197 [lb_av] [facility] temperature 2022-09-11 13:20:00 98 [degF] [facility] bmi 2022-09-11 13:20:00 30.85 kg/m2 [facility] blood pressure 2022-09-11 13:20:00 125 mm[Hg] [facility] - systolic [facility] blood pressure 2022-09-11 13:20:00 72 mm[Hg] [facility] - diastolic [facility] Systolic blood 2022-09-01 13:56:00 88 mm[Hg] Univer sity of pressure [facility] Diastolic blood 2022-09-01 13:56:00 54 mm[Hg] [facility]ive rs[facility] of pressure [facility] Respiratory rate 2022-09-01 13:56:00 21 /min Univ ersity [facility] Oxygen saturation in 2022-09-01 13:56:00 98 /min [facility] Arterial blood by [employer] [facility] Pulse oximetry Branch Body weight 2022-05-26 19:57:00 89.5 kg [facility] BMI 2022-05-26 19:57:00 30.90 kg/m2 [facility] Systolic blood 2022-09-01 13:56:00 88 mm[Hg] Univer [facility]ity [facility] Diastolic blood 2022-09-01 13:56:00 54 mm[Hg] [facility]ive rsity of [facility] Respiratory rate 2022-09-01 13:56:00 21 /min Univ [facility] Oxygen saturation in 2022-09-01 13:56:00 98 /min [facility] Arterial blood by [facility] Pulse oximetry Branch Body weight 2022-05-26 19:57:00 89.5 kg Universi ty [facility] BMI 2022-05-26 19:57:00 30.90 kg/m2 Univers[facility] ty [facility] height 2022-05-15 08:00:00 67 [in_i] [facility] weight 2022-05-15 08:00:00 198 [lb_av] [facility] temperature 2022-05-15 08:00:00 97.4 [degF] [facility] bmi 2022-05-15 08:00:00 31.01 kg/m2 [facility] blood pressure 2022-05-15 08:00:00 120 mm[Hg] [facility] - systolic [facility] blood pressure 2022-05-15 08:00:00 70 mm[Hg] [facility] - diastolic [facility] height 2022-05-15 07:40:00 67 [in_i] [facility] weight 2022-05-15 07:40:00 198 [lb_av] [facility] temperature 2022-05-15 07:40:00 97.4 [degF] [facility] bmi 2022-05-15 07:40:00 31.01 kg/m2 [facility] blood pressure 2022-05-15 07:40:00 120 mm[Hg] [facility] - systolic [facility] blood pressure 2022-05-15 07:40:00 70 mm[Hg] [facility] - diastolic [facility] Systolic blood 2022-05-09 19:04:00 120 mm[Hg] Univer [facility]ity of [facility] Diastolic blood 2022-05-09 19:04:00 66 mm[Hg] Unive rsity of [facility] Heart rate 2022-05-09 19:04:00 78 /min Universi ty [facility] Body temperature 2022-05-09 19:04:00 35.44 Hermelinda [facility] 2022-05-09 19:04:00 18 /min [facility] height 2022-05-09 19:04:00 170.2 cm Universi ty [facility] Body weight 2022-05-09 19:04:00 89.495 kg Univers[facility] ty [facility] BMI 2022-05-09 19:04:00 30.90 kg/m2 [facility] Oxygen saturation in 2022-05-09 19:04:00 98 /min [facility] Arterial blood by [facility] Pulse oximetry Branch height 2021-11-30 09:00:00 67 [in_i] [facility] weight 2021-11-30 09:00:00 200 [lb_av] [facility] bmi 2021-11-30 09:00:00 31.32 kg/m2 [facility] height 2021-10-05 14:00:00 67 [in_i] [facility] weight 2021-10-05 14:00:00 200 [lb_av] [facility] temperature 2021-10-05 14:00:00 98 [degF] [facility] bmi 2021-10-05 14:00:00 31.32 kg/m2 [facility] blood pressure 2021-10-05 14:00:00 114 mm[Hg] [facility] - systolic [facility] blood pressure 2021-10-05 14:00:00 74 mm[Hg] [facility] - diastolic [facility] height 2021-09-13 15:10:00 67 [in_i] [facility] weight 2021-09-13 15:10:00 199.5 [lb_av] [facility] temperature 2021-09-13 15:10:00 97.2 [degF] [facility] bmi 2021-09-13 15:10:00 31.24 kg/m2 [facility] oximetry 2021-09-13 15:10:00 98 % [facility] respiratory rate 2021-09-13 15:10:00 17 /min [facility] blood pressure 2021-09-13 15:10:00 109 mm[Hg] [facility] - systolic [facility] blood pressure 2021-09-13 15:10:00 59 mm[Hg] [facility] - diastolic [facility] height 2021-06-17 11:40:00 67 [in_i] [facility] weight 2021-06-17 11:40:00 205.3 [lb_av] [facility] bmi 2021-06-17 11:40:00 32.15 kg/m2 [facility] Procedures Procedure Date / Time Performing Clinician Source Performed ASSIGNMENT OF BENEFITS 2022-12-18 18:16:10 Doctor Unassigned, [facility] OUTPATIENT CARDIAC 2022-09-11 06:01:00 Doctor Unassigned, [facility] CATHETERIZATION DOCUMENTS [facility] ELECTROPHYSIOLOGY PROCEDURE 2022-09-01 13:41:00 Charlene Clark [facility] HB ECG ROUTINE & RHYTHM 2022-09-01 13:11:40 Bhavin Argueta [facility] ASSIGNMENT OF BENEFITS 2022-08-28 20:17:04 Doctor Unassigned, [facility] Encounters Start End Encounter Admission Attending Care Care Encounter Source Date/Time Date/Time Type Type Clinicians Facility Department ID 2022-09-07 Outpatient Mcmullen, STLMLC STLMLC [id number] Common 15:51:[id number] [facility] 2021-10-19 Outpatient Mcmullen, STLMLC STLMLC [id number] Common 14:27:[id number] [facility] 2021-10-19 Outpatient Mcmullen, STLMLC STLMLC [id number] Common 13:53:[id number] [facility] 2021-10-19 Outpatient Mcmullen, STLMLC STLMLC [id number] Common 12:39:[id number] [facility] 2021-10-19 Outpatient Mcmullen, STLMLC STLMLC [id number] Common 12:37:[id number] [facility] 2021-10-19 Outpatient Mcmullen, STLMLC STLMLC [id number] Common 12:36:[id number] [facility] 2021-10-19 Outpatient Mcmullen, STLMLC STLC [id number] Common 12:11:[id number] [facility] 2021-10-19 Outpatient Mcmullen, STLMLC STLMLC [id number] Common 11:14:[id number] [facility] 2021-10-19 Outpatient Mcmullen, STLMLC STLMLC [id number] Common 11:02:[id number] [facility] 2023-07-05 2023-07-05 Outpatient R SEWANI, [facility] [id number] Univers 10:40:00 10:40:00 BHAVIN ity [facility] 2023-06-21 2023-06-21 Outpatient R NAVJOT, [facility] [id number] Univers 15:00:00 15:00:00 HCIDI alex [facility] 2022-12-18 2022-12-18 Outpatient R NAVJOT, [facility] [id number] Univers 13:40:00 13:45:25 CHIDI alex [facility] 2022-12-18 2022-12-18 Office Navjot, [facility] [id number] Univers 13:40:00 13:45:25 Visit Ginnacassidy [place] [id number] [id number] [phone] Or dicga NAL 9 [facility] 2022-12-18 2022-12-18 Orders Doctor MAHOGANY [id number] Univers 00:00:00 00:00:00 Only Unassigned, LAZARO [id number] [facility] [id number] [place] as [phone] [address] 2022-12-07 2022-12-07 Outpatient [place] ARGUETA [facility] [id number] Univers 11:00:39 23:59:00 BHAVIN ity [facility] 2022-11-23 2022-11-23 Outpatient [place] ARGUETA [facility] [id number] Univers 09:00:00 09:00:00 BHAVIN ity [facility] 2022-11-21 2022-11-21 Telephone [facility] [id number] Univers 00:00:00 00:00:00 Chidi [place] [id number] [id number] [id number] [facility] NAL [address] [place] [address] 2022-11-20 2022-11-20 Telephone [facility] [id number] Univers 00:00:00 00:00:00 Jordonjun [place] [id number] [id number] [phone] Or dical NAL 9 [facility] 2022-11-15 2022-11-15 Telephone [facility] [id number] Univers 00:00:00 00:00:00 Qiaroryjun [place] [id number] [id number] [id number] Or dical NAL 9 [facility] 2022-11-13 2022-11-13 Outpatient R NAVJOT [facility] [id number] Univers 14:20:00 14:20:00 CHIDI ity o f [facility] 2022-10-27 2022-10-27 (TEL) STLMLC STLMLC [id number] Co mmon 00:00:00 00:00:00 [facility] 2022-10-13 2022-10-13 (TEL) STLMLC STLMLC [id number] Co mmon 00:00:00 00:00:00 [facility] 2022-10-11 2022-10-11 (TEL) STLMLC STLMLC [id number] Co mmon 00:00:00 00:00:00 [facility] 2022-10-11 2022-10-11 (TEL) STLMLC STLMLC [id number] Co mmon 00:00:00 00:00:00 [facility] 2022-09-13 2022-09-13 (TEL) STLMLC STLMLC [id number] Co mmon 00:00:00 00:00:00 [facility] 2022-09-11 2022-09-11 OFFICE STLMLC STLMLC [id number] Co mmon 00:00:00 00:00:00 VISIT [facility] LEVEL 4 [facility] 2022-09-11 2022-09-11 Orders Doctor MAHOGANY 1.2.840.114 [id number] Univers 00:00:00 00:00:00 Only Unassigned, LAZARO 350.1.13.10 ity of [place] [facility] 4.2.7.2.686 Johnathon as [phone] [address] 2022-09-01 2022-09-01 Outpatient R ELLIE [facility] [id number] Univers 06:32:00 08:54:00 BHAVIN ity of [facility] 2022-09-01 2022-09-01 [facility] VANESSA Argueta 1.2.840.114 [id number] Univers 06:32:00 08:54:00 Encounter Bhavin LAZARO 350.1.13.10 ity of [facility] 4.2.7.2.686 John[place] as [phone] [facility] [address] 2022-09-01 2022-09-01 Surgery VANESSA Argueta 1.2.840.114 [id number] Univers 07:30:00 08:15:00 Bhavin LAZARO 350.1.13.10 it y of [facility] 4.2.7.2.686 Johnathon as [phone] [facility] [address] 2022-08-28 2022-08-28 Tarper 1, Adc Lab [facility] 1.2.840.114 [id number] Univers 15:00:00 15:15:00 Visit Bhavin Argueta KARIME 350.1.13.10 ity [place] [id number] [facility] [phone] [facility] [address] 2022-08-28 2022-08-28 Outpatient R ELLIE [facility] [id number] Univers 15:00:00 15:00:00 BHAVIN ity [facility] 2022-08-28 2022-08-28 Orders Doctor MAHOGANY 1.2.840.114 [id number] Univers 00:00:00 00:00:00 Only Unassigned, LAZARO 350.1.13.10 ity of [place] [address].7.2.686 Johnathon as [phone] [facility] [address] 2022-07-25 2022-07-25 Telephone VANESSA Argueta 1.2.092.673 [id number] Univers 00:00:00 00:00:00 Bhavin LAZARO 350.1.13.10 it y of [address]686 [place] as [phone] [facility] [address] 2022-07-10 2022-07-10 [facility] [id number] Univers 00:00:00 23:59:00 BHAVIN ity [facility] 2022-07-10 2022-07-10 Hospital VANESSA Argueta 1.2.840.114 [id number] Univers 00:00:00 23:59:00 Encounter Bhavin LAZARO 350.1.13.10 ity of [address]686 [place] as [phone] [facility] [address] 2022-06-14 2022-06-14 (TEL) STLC STLC [id number] Co mmon 00:00:00 00:00:00 Spirit [facility] 2022-06-06 2022-06-06 Outpatient R [facility] [id number] Univers 14:00:00 14:00:00 ity of [facility] 2022-06-05 2022-06-05 (TEL) [facility] [id number] Co mmon 00:00:00 00:00:00 [facility] 2022-05-18 2022-05-18 [facility] 1.2.840.114 [id number] Univers 00:00:00 00:00:00 Chidi SCHAFFER 350.1.13.10 ity [facility] 4.2.7.2.[place] [phone] [address] 2022-05-18 2022-05-18 [facility] 1.2.840.114 [id number] Univers 00:00:00 00:00:00 Chidi SCHAFFER 350.1.13.10 ity of [place] [phone] [address] 2022-05-15 2022-05-15 [facility] [id number] Common 00:00:00 00:00:00 MCR Spirit WELLNESS - CHI VISIT [facility] 2022-05-15 2022-05-15 [facility] [id number] Co mmon 00:00:00 00:00:00 VISIT Spirit ESTAB PT - CHI LEVEL 4 [facility] 2022-05-10 2022-05-10 (TEL) STLC STLC [id number] Co mmon 00:00:00 00:00:00 [facility] 2022-05-09 2022-05-09 Outpatient R [facility] [id number] Univers 14:00:00 14:21:26 CHIDI sanzy o f [facility] 2022-05-09 2022-05-09 Office [facility] 1.2.840.114 [id number] Univers 14:00:00 14:21:26 Visit Chidi SCHAFFER 350.1.13.10 it[facility] 4.2.7.2.[place] [phone] Or dical NAL 9 [facility] 2022-05-09 2022-05-09 Outpatient R [facility] [id number] Univers 14:00:00 14:00:00 CHIDI ity o f [facility] 2022-05-04 2022-05-04 Telephone VANESSA Argueta 1.2.446.162 [id number] Univers 00:00:00 00:00:00 Bhavin LAZARO 350.1.13.10 it y of HOSPITAL 4.2.7.2.686 [place] as [phone] [address] 2022-05-02 2022-05-02 Telephone VANESSA Argueta 1.2.568.431 [id number] Univers 00:00:00 00:00:00 Bhavin LAZARO 350.1.13.10 it y of HOSPITAL 4.2.7.2.686 [place] as [phone] [address] 2022-04-20 2022-04-20 Telephone VANESSA [place] 1.2.317.408 [id number] Univers 00:00:00 00:00:00 Charlene LAZARO 350.1.13.10 it y of HOSPITAL 4.2.7.2.686 [place] as [phone] [address] 2022-04-19 2022-04-19 Outpatient R [facility] [id number] Univers 14:00:00 14:00:00 CHIDI sanzy o f [facility] 2022-04-18 2022-04-18 Telephone [facility] 1.2.012.290 [id number] Univers 00:00:00 00:00:00 Chidi SCHAFFER 350.1.13.10 ity of [place].7.2.[place] [phone] Or dical NAL 9 [facility] 2022-04-172022-04-17 (TEL) [facility] [id number] Co mmon 00:00:00 00:00:00 [facility] 2022-04-17 2022-04-17 Telephone Amber [facility] 1.2.789.946 [id number] Univers 00:00:00 00:00:00 Charlene HEALTH 350.1.13.10 it y of [place].2.[place] [phone] [address] [facility] 2022-04-17 2022-04-17 Telephone [facility] 1.2.223.141 [id number] Univers 00:00:00 00:00:00 Chidi SCHAFFER 350.1.13.10 ity [facility] 4.2.7.2.686 [place] [facility] [phone] [address] 2022-04-14 2022-04-14 (TEL) [facility] [id number] Co mmon 00:00:00 00:00:00 [facility] 2022-04-13 2022-04-13 Emergency X HAYES, [facility] ERT [id number] Univers 15:38:00 17:56:00 KAMERON ity [facility] 2022-04-13 2022-04-13 Emergency Hayes, [facility] 1.2.583.272 [id number] Univers 15:38:00 17:56:00 Kameron SCHAFFER 350.1.13.10 i ty of [place] 4.2.7.2.686 [place] [phone] [address] 2022-04-12 2022-04-12 Telephone [facility] 1.2.467.626 [id number] Univers 00:00:00 00:00:00 Chidi SCHAFFER 350.1.13.10 ity [facility] 4.2.7.2.[place] [phone] [address] 2022-04-11 2022-04-11 Telephone [facility] 1.2.969.800 [id number] Univers 00:00:00 00:00:00 Ginnarorysara KARIME 350.1.13.10 ity of [place].2.[place] [phone] Or dical NAL 059 [facility] 2022-04-10 2022-04-10 Telephone VANESSA Argueta 1.2.507.634 [id number] Univers 00:00:00 00:00:00 Bhavin LAZARO 350.1.13.10 it y of HOSPITAL 4.2.7.2.686 John[place] as [phone] [facility] [address] 2022-03-30 2022-03-30 Telephone [facility] 1.2.624.249 [id number] Univers 00:00:00 00:00:00 Ginnarorysara KARIME 350.1.13.10 ity [place].2.[place] [phone] [facility] 059 [facility] 2022-03-30 2022-03-30 Orders Doctor MAHOGANY 1.2.840.114 [id number] Univers 00:00:00 00:00:00 Only Unassigned, LAZARO 350.1.13.10 ity of [place] [facility] 4.2.7.2.686 Johnathon as [phone] [facility] [address] 2022-03-21 2022-03-21 Refill [facility] 1.2.840.114 [id number] Univers 00:00:00 00:00:00 Chidi SCHAFFER 350.1.13.10 ity [place].2.[place] [phone] [place] 917549 [facility] 2022-03-17 2022-03-17 Outpatient R ELLIE [facility] [id number] Univers 10:20:00 10:20:00 BHAVIN ity of [facility] 2022-03-08 2022-03-08 Outpatient R NAVJOT [facility] [id number] Univers 14:40:00 14:40:00 CHIDI ity o f [facility] 2022-02-13 2022-02-13 Outpatient London FLOWERS [facility] [id number] Univers 14:00:00 14:00:00 QIANGJUN ity o f [facility] 2021-12-16 2021-12-16 Outpatient Lodnon [facility] [id number] Univers 09:20:00 23:59:00 BHAVIN ity [facility] 2021-12-06 2021-12-06 (TEL) STLMLC STLMLC [id number] Co mmon 00:00:00 00:00:00 [facility] 2021-12-02 2021-12-02 Outpatient London [facility] [id number] Univers 09:40:00 09:40:00 BHAVIN ity [facility] 2021-12-02 2021-12-02 Telephone [facility] 1.2.098.537 [id number] Univers 00:00:00 00:00:00 Chidi [place] 350.1.13.10 ity of [facility] 4.2.7.2.686 [place] [phone] Or dical NAL [address] [place] [address] 2021-11-30 2021-11-30 OL DIG E/M STLMLC STLMLC [id number] Common 00:00:00 00:00:00 [facility] 11-20 Spir it [facility] 2021-11-29 2021-11-29 (TEL) STLMLC STLMLC [id number] Co mmon 00:00:00 00:00:00 [facility] 2021-11-18 2021-11-18 Outpatient London [facility] [id number] Univers 10:40:00 10:40:00 BHAVIN ity [facility] 2021-11-18 2021-11-18 Telephone [facility] 1.2.776.576 [id number] Univers 00:00:00 00:00:00 Chidi [place] 350.1.13.10 ity of [facility] 4.2.7.2.686 [place] [phone] Or dical NAL 9 [facility] 2021-10-21 2021-10-21 Outpatient London [facility] [id number] Univers 09:00:00 09:00:00 BHAVIN ity of [facility] 2021-10-19 2021-10-19 Telephone [facility] 1.2.676.424 [id number] Univers 00:00:00 00:00:00 Chidi SCHAFFER 350.1.13.10 ity of [facility] 4.2.7.2.[place] [phone] Or dical NAL 059 [facility] 2021-10-14 2021-10-14 Outpatient R ELLIE [facility] [id number] Univers 11:00:00 11:00:00 BHAVIN ity [facility] 2021-10-05 2021-10-05 (TEL) STLMLC STLMLC [id number] Co mmon 00:00:00 00:00:00 [facility] 2021-10-05 2021-10-05 OFFICE STLMLC STLMLC [id number] Co mmon 00:00:00 00:00:00 VISIT EST Spir it PT LEVEL 3 - [facility] 2021-09-26 2021-09-26 Refill [facility] 1.2.840.114 [id number] Univers 00:00:00 00:00:00 Jack SCHAFFER 350.1.13.10 i ty of [place]ous[place] [facility] 4.2.7.2.[place] [phone] Or dical NAL 059 [facility] 2021-09-20 2021-09-20 Outpatient R [facility] [id number] Univers 15:00:00 23:59:00 CHIDI sanzy o f [facility] 2021-09-20 2021-09-20 [facility] 1.2.840.114 [id number] Univers 15:00:00 23:59:00 Encounter Chidi SCHAFFER 350.1.13.10 ity of [facility] 4.2.7.2.[place] [phone] Or dical NAL 843 [facility] 2021-09-13 2021-09-13 OFFICE STLMLC STLMLC [id number] Co mmon 00:00:00 00:00:00 VISIT Spirit ESTAB PT - CHI LEVEL 4 [facility] 2021-09-12 2021-09-12 Outpatient R NAVJOT, [facility] [id number] Univers 15:00:00 15:00:00 CHIDI alex [facility] 2021-09-12 2021-09-12 Telephone [facility] 1.2.943.092 [id number] Univers 00:00:00 00:00:00 Chidi OLATHE 350.1.13.10 ity [place] 4[place]2.7.2.[place] [phone] Or dical NAL [address] [facility] 2021-08-26 2021-08-26 (TEL) STLMLC STLC [id number] Co mmon 00:00:00 00:00:00 [facility] 2021-08-25 2021-08-25 Outpatient [facility] [id number] Univers 14:00:00 14:00:00 BHAVIN ity [facility] 2021-08-16 2021-08-16 Outpatient R [facility] [id number] Univers 14:20:00 14:38:22 [facility] 2021-08-16 2021-08-16 Outpatient R [facility] [id number] Univers 14:20:00 14:38:22 [facility] john [facility] 2021-08-16 2021-08-16 Office [facility] 1.2.840.114 [id number] Univers 14:08:08 14:38:22 Visit Chidi OLATHE 350.1.13.10 ity of [place] 4.2.7.2.686 [place] [phone] Or dical NAL 9 [facility] 2021-08-10 2021-08-10 Abstract [facility]taAC[facility] 1.2.840.114 [id number] Univers 00:00:00 00:00:00 [facility] 350.1.13.10 ity of [place].2.686 [place] [phone] [address] (CLC) 2021-08-09 2021-08-09 Renetta Argueta [facility] 1.2.291.643 [id number] Univers 00:00:00 00:00:00 Bhavin [place] 350.1.13.10 i ty of [facility] 4.2.7.2.686 [place] [phone] Or dic[address] 2021-08-08 2021-08-08 Renetta Argueta [facility] 1.2.151.668 [id number] Univers 00:00:00 00:00:00 Bhavin HEALTH 350.1.13.10 it y of [place] 4[place]2.7.2.[place] [phone] [address] 2021-08-08 2021-08-08 [place] [facility] 1.2.296.831 [id number] Univers 00:00:00 00:00:00 Bhavin [place] 350.1.13.10 i ty of [place] 4[place]2.[place].2.[place] [phone] [address] 2021-08-04 2021-08-04 Outpatient R TIMMYMARILYNNACOMA[facility] EPL [id number] Univers 08:00:00 23:59:00 BHAVIN ity [facility] 2021-08-04 2021-08-04 Outpatient R [facility] EP [id number] Univers 08:00:00 23:59:00 BHAVIN ity [facility] 2021-08-04 2021-08-04 Outpatient R TIMMYMARILYNNACOMA[facility] EP [id number] Univers 08:00:00 23:59:00 BHAVIN ity [facility] 2021-08-04 2021-08-04 [facility] VANESSA Argueta 1.2.840.114 [id number] Univers 07:22:49 23:59:00 Encounter Bhavin LAZARO 350.1.13.10 ity of [facility] 4.2.7.2.686 Johnathon as [phone] [address] 2021-08-03 2021-08-03 Telephone VANESSA Argueta 1.2.374.626 [id number] Univers 00:00:00 00:00:00 Bhavin LAZARO 350.1.13.10 it y of HOSPITAL 4.2.7.2.686 John[place] as [phone] [facility] [address] 2021-08-02 2021-08-02 Tarper Cece, 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 [facility] 1.2.8 40.114 [id number] Univers 14:58:32 15:13:32 Visit Bhavin Argueta 350.1.13.10 ity of [place] 4.2.7.2.686 [place] [facility] [phone] Or dical [facility] 353 [facility] 2021-08-02 2021-08-02 Laboratory Only, Adc Test [facility] 1.2.840. 114 [id number] Univers 14:57:30 15:12:30 Only Bhavin Argueta 350.1.13.10 ity of [place] 4.2.7.2.686 [place] CAMPUS [phone] [facility] [address] [place] 2021-08-02 2021-08-02 Outpatient [facility] [id number] Univers 15:00:00 15:00:00 BHAVIN ity [facility] 2021-08-02 2021-08-02 Outpatient [facility] [id number] Univers 10:30:00 10:30:00 BHAVIN ity [facility] 2021-07-14 2021-07-14 Telephone VANESSA Argueta 1.2.401.017 [id number] Univers 00:00:00 00:00:00 Bhavin LAZARO 350.1.13.10 it y of [facility] 4.2.7.2.686 Johnathon as [phone] [facility] [address] 2021-07-08 2021-07-08 Outpatient [facility] [id number] Univers 08:00:00 08:00:00 BHAVIN ity [facility] 2021-07-06 2021-07-06 Outpatient R [facility] [id number] Univers 10:30:00 10:30:00 ity [facility] 2021-07-04 2021-07-04 (TEL) STLMLC STLMLC [id number] Co mmon 00:00:00 00:00:00 [facility] 2021-06-24 2021-06-24 (TEL) STLMLC STLMLC [id number] Co mmon 00:00:00 00:00:00 [facility] 2021-06-22 2021-06-22 Outpatient R COLBY ARGUETA [facility] [id number] Univers 08:00:00 08:00:00 BHAVIN ity of [facility] 2021-06-17 2021-06-17 (TEL) STLMLC STLMLC [id number] Co mmon 00:00:00 00:00:00 [facility] 2021-06-17 2021-06-17 OL DIG E/M STLMLC STLMLC [id number] Common 00:00:00 00:00:00 [facility] 11-20 Spir it [facility] 2021-06-16 2021-06-16 (TEL) STLMLC STLMLC [id number] Co mmon 00:00:00 00:00:00 [facility] 2021-06-03 2021-06-03 (TEL) STLMLC STLMLC [id number] Co mmon 00:00:00 00:00:00 [facility] 2021-05-20 2021-05-20 Telephone Vanessa Argueta 1.2.177.190 [id number] [facility] 00:00:00 00:00:00 Bhavin Lazaro 350.1.13.10 it y of [facility] 4.2.7.2.686 Johnathon as [phone] [address] 2021-05-12 2021-05-12 (TEL) STLMLC STLMLC [id number] Co mmon 00:00:00 00:00:00 [facility] 2021-05-10 2021-05-10 Office Ellie DECARLOS EDUARDO 1.2.840.114 [id number] Univers 11:29:31 12:11:58 Visit Bhavin [place] 350.1.13.10 i ty [facility] 4.2.7.2.[place] [phone] [address] 2021-05-10 2021-05-10 Outpatient [facility] [id number] Univers 11:40:00 11:40:[facility] 2021-04-15 2021-04-15 Outpatient STLMLC STLMLC [id number] Common 00:00:00 00:00:00 [facility] 2021-04-05 2021-04-05 Out[facility] [id number] Univers 14:40:00 14:40:00 [facility] 2021-04-05 2021-04-05 Outpatient R [facility] [id number] Univers 14:30:00 14:30:00 [facility] 2021-03-31 2021-03-31 Outpatient STLMLC STLMLC [id number] Common 00:00:00 00:00:00 [facility] 2021-03-31 2021-03-31 Outpatient STLMLC STLMLC [id number] Common 00:00:00 00:00:00 [facility] 2021-03-25 2021-03-25 Outpatient [facility] [id number] Univers 13:00:00 13:00:00 ROULA [facility] 2021-02-16 2021-02-16 Outpatient STLMLC STLMLC [id number] Common 00:00:00 00:00:00 [facility] 2021-01-03 2021-01-03 Out[facility] [id number] Univers 00:00:00 00:00:00 General acute hospital 2020-12-13 2020-12-13 Outpatient STLMLC STLMLC [id number] Common 00:00:00 00:00:00 [facility] 2020-12-06 2020-12-06 Outpatient R OMOLE, [facility] [id number] Univers 14:00:00 14:00:00 JACK [facility] 2020-12-01 2020-12-01 Outpatient STLMLC STLMLC [id number] Common 00:00:00 00:00:00 [facility] 2020-12-01 2020-12-01 Outpatient STLMLC STLMLC [id number] Common 00:00:00 00:00:00 [facility] 2020-10-05 2020-10-05 Laboratory Pacemaker/I [facility] 1.2.840.114 [id number] 14:01:57 14:44:53 Only cd, Adc [place] 350.1.13.10 [place] 4.2.7.2.686 Professio [id number] [address] 2020-10-05 2020-10-05 Laboratory Pacemaker/Icd, Adc DEMB 1.2. 840.114 [id number] [facility] 14:01:57 14:44:53 Only Bhavin Argueta [place] 350.1.13.10 ity of [place].2.[place] [phone] Or dic[address] 2020-10-05 2020-10-05 Outpatient R [facility] [id number] Univers 14:30:00 14:30:00 ity of [facility] 2020-10-04 2020-10-04 Outpatient STLMLC STLMLC [id number] Common 00:00:00 00:00:00 [facility] 2020-10-04 2020-10-04 Telephone Omole, [facility] 1.2.988.881 [id number] 00:00:00 00:00:00 Jack Dell 350.1.13.10 Yasmani Baugh 4.2.7.2.686 Professio [phone] [address] 2020-10-04 2020-10-04 Telephone [place], [facility] [id number] Univers 00:00:00 00:00:00 Jack Dell 350.1.13.10 i ty of [place] [phone] Or dical [address] 2020-09-06 2020-09-06 Tarper Cece, 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 [place] 1.2.8 40.114 [id number] Univers 16:44:57 16:59:57 Visit [place], Jack Yasmani Schaffer 350.1.1 3.10 ity [place]2.[place] [phone] Or dic[address] 2020-09-06 2020-09-06 Tarper Tracey Zhao [facility] 1.2.840.114 [id number] 16:44:57 16:59:57 Visit Lab Main [place] 350.1.13.10 [place] 4.2.7.2.686 Professio [phone] [address] 2020-09-06 2020-09-06 Office [place], [facility] 1.2.840.114 [id number] Univers 15:43:17 16:28:17 Visit Jack Schaffer 350.1.13.10 i ty of [place] 4[place]7.2.[place] [phone] [address] 2020-09-06 2020-09-06 Office [place], [facility] 1.2.840.114 [id number] 15:43:17 16:28:17 Visit Jack Schaffer 350.1.13.10 Yasmani Baugh 4.2.7.2.686 Professio [phone] [address] 2020-09-06 2020-09-06 [facility] [id number] Univers 15:45:00 15:45:00 JACK ity [facility] 2020-09-06 2020-09-06 Orders Doctor VIDES 1.2.840.114 [id number] Univers 00:00:00 00:00:00 Only Unassigned, LAZARO 350.1.13.10 ity of [place] [facility] 4.2.7.2.686 Johnathon as [phone] [address] 2020-08-31 2020-08-31 Outpatient [facility] [id number] Common 00:00:00 00:00:00 [facility] 2020-08-03 2020-08-03 Outpatient R [facility] [id number] Univers 11:00:00 11:00:00 ity of [facility] 2020-07-06 2020-07-06 Outpatient R [facility] [id number] Univers 08:00:00 08:00:00 ity of [facility] 2020-06-18 2020-06-18 Outpatient R NAVJOT, [facility] [id number] Univers 09:45:00 09:45:00 CHIDI ity o f [facility] 2020-05-14 2020-05-14 Outpatient Rosette Burgess [id number] Common 09:30:00 09:30:00 [employer] [facility] it [employer] [facility] 2020-05-03 2020-05-03 Tarper Cece, 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 [facility] 1.2.8 40.114 [id number] Univers 14:05:31 14:20:31 Visit Jcak Goss 350.1.1 3.10 it[place] [phone] Or dical nal 353 [facility] 2020-05-03 2020-05-03 Office Fac, Adc Heart Failure Cardio [facility] 1.2.840.114 [id number] Univers 12:54:43 13:43:46 Visit Chidi Flowers 350.1.13.10 [place] [phone] Or dical nal 059 [facility] 2020-05-03 2020-05-03 Outpatient R [facility] [id number] Univers 13:00:00 13:00:00 ity of [facility] 2020-03-19 2020-03-19 Nurse Visit, Adc Nurse [facility] 1.2.840.1 [id number] Univers 10:02:38 21:31:06 Visit Giacomo Mae 350.1.13. 10 [place] [phone] Or dical nal 059 [facility] 2020-03-19 2020-03-19 Outpatient R [facility] [id number] Univers 10:00:00 10:00:00 ity [facility] 2020-03-19 2020-03-19 Orders Doctor VIDES 1.2.840.114 [id number] Univers 00:00:00 00:00:00 Only Unassigned, LAZARO 350.1.13.10 ity of [place] [facility] 4.2.7.2.686 Johnathon as [phone] [facility] [address] 2020-03-01 2020-03-01 [place] [facility] [id number] Univers 13:30:00 13:30:00 CHIDI ity o f [facility] 2020-02-25 2020-02-25 [facility] [id number] Common 08:15:00 08:15:[address] [employer] [address] [facility] 2020-02-25 2020-02-25 [facility] [id number] Common 08:00:00 08:00:[address] [employer] [address] [facility] 2020-01-22 2020-01-22 Refill [facility] 1.2.840.114 [id number] Univers 00:00:00 00:00:00 Claire Schaffer [id number] i ty of [facility] [id number] [phone] [place] [address] [facility] 2020-01-22 2020-01-22 Refill Omole, [facility] 1.2.840.114 [id number] Univers 00:00:00 00:00:00 zerobound 350.1.13.10 it y of [facility] [id number] [facility] [phone] [facility] Primary & 9 [facility] 2020-01-05 2020-01-05 [facility] [id number] Common 15:23:00 15:23:[address] [facility] 2019-12-01 2019-12-01 Office Fac, Adc Heart Failure Cardio [facility] 1.2.840.114 [id number] Univers 15:01:39 15:31:39 Visit Claire Piña 350.1 .13.10 ity of [id number] [phone] Or dical nal 059 [facility] 2019-12-01 2019-12-01 Outpatient R [facility] [id number] Univers 15:00:00 15:00:00 ity of [facility] 2019-11-29 2019-11-29 Tarper Cece, 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 [facility] 1.2.8 40.114 [id number] Univers 10:15:32 10:30:32 Visit Alexandru Claire Schaffer 350.1 .13.10 ity of [id number] [phone] Or dical nal 353 [facility] 2019-11-29 2019-11-29 [facility]patient [facility] [id number] Univers 10:15:00 10:15:00 [place] ity of [facility] 2019-11-20 2019-11-24 Laboratory Pc, Adc Echo Room 1 - [facility] 1 .2.840.114 [id number] Univers 14:09:20 08:17:57 Only Chidi Flowers [id number] ity [id number] [phone] Or dical nal 059 [facility] 2019-11-23 2019-11-23 Telephone Omar [facility] [id number] Univers 00:00:00 00:00:00 [email or web address] [employer] [facility] 350.1.13.10 ity of [place] [id number] [place] [phone] [facility] Primary & 059 [facility] 2019-11-20 2019-11-20 Outpatient R [facility] [id number] Univers 16:00:00 16:00:00 ity of [facility] 2019-11-20 2019-11-20 Outpatient R [facility] [id number] Univers 14:00:00 14:00:00 ity of [facility] 2019-11-10 2019-11-10 Refill Navjot [facility] 1.2.840.114 [id number] Univers 00:00:00 00:00:00 Chidi Schaffer 350.1.13.10 ity of [id number] [phone] Or dical nal 059 [facility] 2019-11-04 2019-11-04 Tarper Cece, Tracey Lab Main [facility] 1.2.8 40.114 [id number] Univers 13:53:34 14:08:34 Visit Claire Piña 350.1 .13.10 ity of [place] [id number] [phone] Or dical nal 353 [facility] 2019-10-29 2019-10-29 Telephone Navjot [facility] [id number] Univers 00:00:00 00:00:00 Chidi Schaffer 350.1.13.10 ity of [place] [id number] [phone] Or dicga nal 059 [facility] 2019-10-21 2019-10-21 Refill Alexandru [facility] 1.2.840.114 [id number] Univers 00:00:00 00:00:00 Claire [place] 350.1.13.10 i ty of [place] [id number] [place] [phone] [facility] nal 059 [facility] 2019-10-17 2019-10-17 Nurse Visit, [facility] Nurse [facility] 1.2.840.1 [id number] Univers 09:26:33 13:13:48 Visit Chidi Flowers 350.1.13.10 ity [place] 4[place]2.7.2.[place] [phone] Or dicga nal 059 [facility] 2019-10-17 2019-10-17 Orders Doctor MAHOGANY 1.2.840.114 [id number] Univers 00:00:00 00:00:00 Only Unassigned, LAZARO 350.1.13.10 ity of [place] [facility] 4.2.7.2.686 Johnathon as [phone] [facility] 00[address] [place] 2019-10-06 2019-10-06 [facility] [id number] Common 15:39:00 15:39:[address] [employer] [address] [facility] 2019-08-07 2019-08-07 [facility] [id number] Common 15:15:00 15:15:[address] [facility] 2019-07-16 2019-07-16 [facility] [id number] Common 13:31:00 13:31:[address] [facility] 2019-07-10 2019-07-10 [facility] [id number] Common 11:31:00 11:31:[address] [facility] 2019-06-16 2019-06-16 [facility] [id number] Common 13:45:00 13:45:[address] [facility] 2019-06-06 2019-06-06 [facility] [id number] Common 11:58:00 11:58:[address] [facility] 2019-06-04 2019-06-04 [facility] [id number] Common 11:13:00 11:13:[address] [facility] 2019-06-03 2019-06-03 [facility] [id number] Common 11:31:00 11:31:[address] [facility] 2019-05-05 2019-05-13 Office Fac, [facility] Heart Failure Cardio [facility] 1.2.840.114 [id number] [facility] 13:05:32 15:22:02 Visit Giacomo Mea 350.1.13. 10 ity of [place] 4.2.7.2.686 Bj Beck [phone] Or dic[address] 2019-05-13 2019-05-13 Telephone [facility], [facility] 1.2.840.114 [id number] [facility] 00:00:00 00:00:00 Heart HEALTH 350.1.13.10 it y of [place] [id number] [place] [phone] [facility] Primary & [facility] 2019-05-13 2019-05-13 Orders Doctor MAHOGANY 1.2.840.114 [id number] Univers 00:00:00 00:00:00 Only Unassigned, LAZARO 350.1.13.10 ity of [place] [facility] 4.2.7.2.686 Johnathon as [phone] [address] 2019-05-01 2019-05-01 Telephone Fac, [facility] 1.2.840.114 [id number] Univers 00:00:00 00:00:00 Heart HEALTH 350.1.13.10 it y of Failure [place] [id number] [facility] Cardio [facility] [phone] [facility] & [address] [place] [address] Specialty Care 2019-05-01 2019-05-01 Telephone Fac, [facility] 1.2.840.114 [id number] Univers 00:00:00 00:00:00 Heart [place] 350.1.13.10 i ty of Failure [place] 4.2.7.2.686 [facility] Cardio Professio [phone] Me dical [address] 2019-04-01 2019-04-01 [facility] [id number] Common 13:00:00 13:00:00 [address] [employer] [address] [facility] 2018-12-25 2018-12-25 [facility] [id number] Common 15:45:00 15:45:[address] [employer] [address] [facility] 2018-10-06 2018-10-06 Orders Doctor MAHOGANY 1.2.840.114 [id number] Univers 00:00:00 00:00:00 Only Unassigned, LAZARO 350.1.13.10 ity of [place] [facility] 4.2.7.2.686 John[place] as [phone] [address] Results Test Description Test Time Test Comments Results Result Comments Source STREP A RAPID 2021-10-06 00:00:00 Test Item Value Reference Range Interpretation Comme nts Result (test code = 35551-3) NEGATIVE POC, COVID 19 Antigen + Flu by SofiaPOC, COVID 19 Antigen + Flu by SofiaSARS-COV 2 AntigenSARS-COV 2 Antigen
[2023-01-06] MEDS ORDERED: TRAMADOL HCL 50 MG TAB PO PRN (11:07)
[2023-01-06] MEDS ORDERED: BUSPIRONE HCL 5 MG TABLET PO PRN (11:11)
[2023-01-06] MEDS: carvediloL 3.125 MG TAB PO SCH (16:51)
[2023-01-06] MEDS: HYDROCODONE/APAP 5/325 MG TAB PO PRN (16:52)
[2023-01-06] MEDS: DOCUSATE NA/SENNA CONC 1 TAB PO PRN (20:13)
[2023-01-06] MEDS: APIXABAN 2.5 MG TABLET PO SCH (20:13)
[2023-01-06] MEDS ORDERED: TRAZODONE 150 MG TAB PO SCH (21:00)
[2023-01-06] MEDS ORDERED: DOCUSATE NA/SENNA CONC 1 TAB PO SCH (21:00)
[2023-01-07 00:26] LABS: Renal Epithelial <5 /HPF (None Seen); Specific Gravity 1.009 (1.005-1.030); Urine Bacteria None Seen /HPF (<20); Urine Bilirubin NEGATIVE (Negative); Urine Blood Negative (Negative); Urine Clarity Clear (Clear); Urine Color Light-Yellow (Yellow); Urine Glucose NEGATIVE (Negative); Urine Mucus Slight /HPF (None Seen); Urine Protein NEGATIVE (Negative); Urine RBC <5 /HPF (None Seen); Urine Urobilinogen Normal (Normal); Urine pH 6.5 (5.0-7.0)
--- NOTE | 2023-01-07 02:13 | HP ---
Date of Admission: 01/06/2023 [facility] Admission History And Physical Time Of Service: 9 p.m. Chief Complaint: "I became very weak and fell at home." History Of Present Illness: Ms. Tripp is a 72-year-old right-handed patient with hypertens ion, dyslipidemia, COPD, Graves disease, and peripheral vascular disease who began losing balance and falling at home. She lives at home, with someone on the second floor and she is on the first floor, but is unable to be independent because of her frequent falls. She came to [facility] and was found to be orthostatic with blood pressures diastolic down to 87 over systolic 59 with pulse of 73 and symptomatic. Her antihypertensive medications were adjusted. She received IV fluids and bega n to ambulate with physical therapy. However, she still required significant assistance to mobilize as over, perhaps a few days or longer, she has become significantly debilitated. She does have chron ic low back pain from an L2 compression fracture and has had narcotic medication and pain patch in [facility]. Due to her debility and back pain along with orthostatic blood pressure changes, she is kassy med to be an appropriate candidate for inpatient rehabilitation and is therefore admitted to the [facility] rehabilitation unit for physical, occupational, and if need be, speech therapy. 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 Past Surgical History: Internal cardioverter defibrillator, cardiac stent, cholecystectomy, hysterec sindi, left hip surgery, right ankle surgery, right wrist surgery, and left shoulder skin cancer remov ed. Allergies: SULFA DRUGS. Social History: No alcohol, tobacco, or IV drug use. She does live at home on the first floor and t here is a friend, she says living on the second floor, who can help her at times. Family History: Cancer and dementia in her mother. Heart disease and liver disease in father. Medications: At home are BuSpar 10 mg twice daily, trazodone up to 150 mg at night as needed for ins omnia, aspirin 81 mg daily, citalopram 20 mg daily, Plavix 75 mg daily, carvedilol 3.125 mg twice verónica ly, ferrous sulfate 325 mg daily, Lasix 20 mg daily, Protonix 40 mg daily, levothyroxine daily, prava statin daily, vitamin B12 1000 mcg daily, Entresto 49-51 one daily, and Ultram 50 mg twice daily as n eeded. Laboratory Studies: White blood cell count 3.8, hemoglobin 11.6, platelets 178. INR 0.99. Chemistr ies: Sodium 139, potassium 3.7, chloride 111, carbon dioxide 26, BUN 13, creatinine 0.88, glucose 98 , calcium 8.4, and magnesium 2.4. TSH slightly elevated to 3.830 and free T4 normal at 1.08. X-ray/imaging: Head CT scan on the shows no acute intracranial abnormalities. Abdomen and pelv is CT scan on the with no visualized acute abdominal or pelvic injury. There was mild colonic c onstipation. Femur x-ray done on the with no acute findings on the right femur. Chest x-ray do ne on the with no active cardiopulmonary disease. Please note that the abdomen and pelvis CT sc an on the did identify a chronic L1 deformity and the prior left hip arthroplasty with healed ri ght inferior pubic ramus fracture. Review of Systems: No fevers or chills. Mild myalgias, arthralgias. No rash. No headache or weight change. Mild cons tipation. No genitourinary issues. No dermatological issues. No other positives on systems review other than mentioned. Current Level Of Functioning: For showering and bathing, supervision. Upper body dressing is indepe ndent. Touch assistance for lower body dressing. Supervision for rolling left and right. She is ab le to ambulate 100 feet with a rolling walker with contact guard. Rehabilitation And Medical Assessment And Plan: Ms. Tripp is a 72-year-old patient in the rehabilita tion unit with debility. Her rehabilitation impairment category is 20 miscellaneous. Her rehabilita tion impairment group code is 16 debility, noncardiac, nonpulmonary and her etiologic diagnosis is de conditioning complicated by recurrent falls. She has active comorbids of anxiety, congestive heart f ailure, depression, dyslipidemia, hypertension, and coronary artery disease. She has a chronic L1 co mpression fracture, chronic right inferior pubic rami fracture, left hip fracture and proximal right humeral fracture chronic along with chronic obstructive pulmonary disease. Plan: 1.For rehabilitation, she will have physical and occupational therapy for 3 hours a day, 5 of 7 days . 2.For her comorbid conditions, which include chronic obstructive pulmonary disease, hypertension, dy slipidemia, depression, and peripheral vascular disease, her medications will be continued including aspirin, Plavix, and carvedilol will be adjusted as appropriate. For anemia, ferrous sulfate. We wi ll use Synthroid for hypothyroidism. Pravastatin for dyslipidemia, vitamin B12 continued for her ane sandra. Impact Of Her Comorbids: She has multiple comorbid conditions, which are managed by her medications and adjustments will be used as appropriate. She does have trazodone up to 150 mg at night for sleep . That medication may be adjusted downwards as appropriate. She did have at one point, narcotic for back pain. A lidocaine patch will be applied to the back and Ultram will be used to decrease the st ronger narcotic use. Rehab Specific Plan: As noted, she will have physical and occupational therapy for 3 hours a day, 5 of 7 days. If need be, she will be evaluated to determine if speech therapy is appropriate with cogn itive evaluation and ability to follow tasks as directed in physical and occupational therapy. She has a good understanding of the process by which she is admitted to the inpatient rehabilitation unit for interdisciplinary rehabilitation approach. She has a potential to make great improvement wi th physical and occupational therapy and to become independent, which she was previously. In [facility] n, she may need services from the Nutrition Service, Psychiatry Service, Pulmonary Service, and Cardi ovascular Service as appropriate. Given her complex condition and risk of further medical complicati ons, rehabilitation cannot be safely or effectively provided at a lower level of care such as a [facility] nursing facility. Barriers To Discharge: At this point, she did not have any significant barriers to her ability to be able to discharge. Estimated Length Of Stay: About 9 days. Disposition: To go home. Prognosis: Good. Rehabilitation Goals: 1.Independent with upper and lower body dressing. 2.Independent with transfers to toilet and shower and complete the shower independently. 3.Independent covering 250 feet without an assistive device. 4.Going up 10 steps without an assistive device and independent. I acknowledge, I have personally performed a full physical examination on patient Maryan Tripp no late r than 24 hours after admission to the inpatient rehabilitation unit and I have determined she is abl e to tolerate the above course of treatment at the intensive level indicated for the time stipulated around 9 days. A detailed individualized plan of care for her will be completed by hospital day 4 ba sed on the preadmission screen, history and physical, and therapy evaluations. CECELIA Voice ID: [id number]
[2023-01-07] MEDS: LEVOTHYROXINE SOD 0.1 MG TAB PO SCH (05:10)
[2023-01-07] MEDS: carvediloL 3.125 MG TAB PO SCH ×2 (05:10→17:07)
[2023-01-07] MEDS ORDERED: PANTOPRAZOLE 40MG TABLET PO SCH (06:30)
[2023-01-07 06:49] LABS: Absolute Lymphocytes (CBC) 0.9 K/uL (0.7-4.9); Hematocrit 33.2 % (36.0-45.0); Lymphocytes % 28.5 % (15.3-44.8); MCV 89.7 fL (80-100); MPV 7.7 fL (7.6-11.3)
[2023-01-07 07:13] LABS: Albumin 2.8 g/dL (3.4-5.0); Magnesium 2.3 mg/dL (1.6-2.4); Potassium 3.8 mEq/L (3.5-5.1)
[2023-01-07] MEDS ORDERED: ENOXAPARIN 40 MG/0.4 ML SQ SCH (08:00)
[2023-01-07] MEDS: SACUBITRIL/VALSARTAN 49/51 MG TAB PO SCH ×2 (08:00→13:10)
[2023-01-07] MEDS ORDERED: LIDOCAINE 4% PATCH TOP SCH (08:00)
[2023-01-07] MEDS ORDERED: ATORVASTATIN 10 MG TAB PO SCH (08:00)
[2023-01-07] MEDS: PANTOPRAZOLE 40MG TABLET PO SCH (08:50)
[2023-01-07] MEDS: APIXABAN 2.5 MG TABLET PO SCH ×2 (08:50→20:05)
[2023-01-07] MEDS: HYDROCODONE/APAP 5/325 MG TAB PO PRN ×2 (09:07→20:06)
[2023-01-07] MEDS: CLOPIDOGREL 75 MG TABLET PO SCH (09:09)
[2023-01-07] MEDS: ASPIRIN EC 81 MG TAB PO SCH (09:09)
[2023-01-07] MEDS: CITALOPRAM 10 MG TABLET PO SCH (09:09)
[2023-01-07] MEDS: FERROUS SULFATE 325 MG TAB PO SCH (09:09)
[2023-01-07] MEDS: CYANOCOBALAMIN 1,000 MCG TAB PO SCH (09:09)
[2023-01-07] MEDS: FUROSEMIDE 20 MG TABLET PO SCH (09:09)
[2023-01-07 17:03] LABS: Prealbumin 16.5 mg/dL (20-40)
[2023-01-07] MEDS ORDERED: BISACODYL 10 MG RECTAL SUPP PR PRN (18:54)
[2023-01-07] MEDS ORDERED: POLYETHYL GLY 3350 17 GM/DOSE PO PRN (18:54)
[2023-01-07] MEDS ORDERED: MAGNESIUM HYDROXIDE 8% 30 ML PO PRN (18:54)
[2023-01-07] MEDS: ATORVASTATIN 10 MG TAB PO SCH (20:05)
[2023-01-07] MEDS: hydrOXYzine HCL 25 MG TAB PO PRN (20:05)
[2023-01-08] MEDS: ONDANSETRON 4 MG (ODT) TAB PO PRN (04:53)
[2023-01-08] MEDS: carvediloL 3.125 MG TAB PO SCH ×2 (05:03→17:23)
[2023-01-08] MEDS: LEVOTHYROXINE SOD 0.1 MG TAB PO SCH (05:03)
[2023-01-08] MEDS: FUROSEMIDE 20 MG TABLET PO SCH (08:00)
[2023-01-08] MEDS: SACUBITRIL/VALSARTAN 49/51 MG TAB PO SCH (08:00)
[2023-01-08] MEDS: CLOPIDOGREL 75 MG TABLET PO SCH (08:30)
[2023-01-08] MEDS: LIDOCAINE 4% PATCH TOP SCH (08:30)
[2023-01-08] MEDS: PANTOPRAZOLE 40MG TABLET PO SCH (08:30)
[2023-01-08] MEDS: ASPIRIN EC 81 MG TAB PO SCH (08:31)
[2023-01-08] MEDS: APIXABAN 2.5 MG TABLET PO SCH ×2 (08:31→19:48)
[2023-01-08] MEDS: CYANOCOBALAMIN 1,000 MCG TAB PO SCH (08:31)
[2023-01-08] MEDS: HYDROCODONE/APAP 5/325 MG TAB PO PRN (08:31)
[2023-01-08] MEDS: CITALOPRAM 10 MG TABLET PO SCH (08:31)
[2023-01-08] MEDS: FERROUS SULFATE 325 MG TAB PO SCH (08:31)
[2023-01-08] MEDS: hydrOXYzine HCL 25 MG TAB PO PRN (19:48)
[2023-01-08] MEDS: ATORVASTATIN 10 MG TAB PO SCH (19:48)
--- NOTE | 2023-01-08 23:43 | PN ---
Date of Progress Note: 01/08/2023 Qwdg-Qi-Dccn Progress Note Visit Time Of Service: 1 p.m. Subjective: Ms. Tripp reports doing better. She is happy to be in the unit and doing therapy. She has no new complaints. She does feel of course weak, but notes she is getting stronger. She does ex ercises. Review of Systems: No fevers, chills, nausea, vomiting, myalgias, or significant arthralgias. Some orthostatic type com plaints. No rash. No other positives on the systems review. Physical Examination: Vital Signs: Blood pressure 128/60, pulse 74, respiratory rate 16, and temperature 97.0. She did sarah ve at one point lower blood pressures. It should be noted earlier in the morning around 9:23, she sarah d orthostatics blood pressure check. While sitting blood pressure dropped from 106/55 and pulse of 7 3 to 82/35 with a pulse of 71 and while standing, blood pressure dropped further to 71/43 with a puls e of 80. She was put back in bed and encouraged to be on oral hydration. HEENT: Normocephalic, atraumatic. Sclerae anicteric. Oropharynx is moist. Neck: Supple. Chest: Clear. Abdomen: Soft. Extremities: No significant clubbing, cyanosis, or edema. She just has diffuse weakness in the lowe r extremities proximally and distally. Laboratory Studies: White blood cell count 3.1, hemoglobin 11.0, and platelets 185. Chemistry: Sod ium 138, potassium 3.8, chloride 110, carbon dioxide 26, BUN 11, creatinine 0.87, prealbumin 16.5, an d albumin 2.8. Urinalysis is normal except esterase is elevated to 75. X-ray/imaging: None. Medications: Tylenol 500 mg every 6 hours, [place] 5/325 every 6 hours as needed, Eliquis 2.5 mg twice daily, aspirin 81 mg daily, Lipitor 40 mg at bedtime, BuSpar 10 mg twice daily, Coreg 3.125 mg twice daily, citalopram 20 mg daily, Plavix 75 mg daily, vitamin B12 1000 mcg daily, ferrous sulfate 325 m g daily, Lasix 20 mg daily, Atarax 25 mg at bedtime for insomnia, Synthroid 0.1 mg daily, lidocaine p atch 2 patches daily, milk of magnesia 30 mL daily, Zofran 4 mg daily as needed, Ultram 50 mg twice d aily, and Senokot-S 2 tablets at bedtime. Please note, actually earlier this morning, she did have m ild nausea that was before breakfast, that resolved with Zofran. Current Functional Status: Today she ambulated 150 feet, 160 feet, and 100 feet with contact guard a ssistance using a rolling walker. She did supine to stand transfers with contact guard assistance. She did multiple stand and pivot transfers with minimum assistance using a rolling walker. She did d emonstrate good standing balance to perform independent oral hygiene. Again, she did have some drop in blood pressure with standing and is recommended abdominal binders and SUZAN hose. Progress Towards Rehabilitation Goals: Ms. Tripp is making good progress and she is only 3 days in t inpatient unit and the progress is to be able to change position from sit to stand and do stand an d pivot transfers, to ambulate household distances, all with independence and making great progress. Assessment: Ms. Tripp is a 72-year-old patient in the rehabilitation unit with debility, anxiety, co ngestive heart failure, depression, dyslipidemia, hypertension, coronary artery disease, and a chroni c L1 compression fracture. She also has a chronic right inferior pubic rami fracture, left hip fract ure, proximal right humeral fracture, and chronic obstructive pulmonary disease. Plan: 1.She will continue physical and occupational therapy 3 hours a day, 5 of 7 days. 2.Her multiple comorbid conditions as listed, will be managed by continuing the current medications as noted above. 3.DVT prophylaxis with Eliquis. 4.Zofran for nausea. 5.SUZAN hose and abdominal binders for orthostatic hypotension changes. Comorbids That Continue To Impact Rehabilitation Process: She does have orthostatic hypotension and likely to be aggravated by dehydration. She will have fluids encouraged, abdominal binders in place, and SUZAN hose in place when ambulating and a walker will be used at all times. LB/MODL Voice ID: [id number] Report ID: [id number]
[2023-01-09] MEDS: carvediloL 3.125 MG TAB PO SCH ×2 (05:13→17:24)
[2023-01-09] MEDS: PANTOPRAZOLE 40MG TABLET PO SCH (06:44)
[2023-01-09] MEDS: LEVOTHYROXINE SOD 0.1 MG TAB PO SCH (06:45)
[2023-01-09] MEDS: LIDOCAINE 4% PATCH TOP SCH (07:58)
[2023-01-09] MEDS: ASPIRIN EC 81 MG TAB PO SCH (07:59)
[2023-01-09] MEDS: CLOPIDOGREL 75 MG TABLET PO SCH (07:59)
[2023-01-09] MEDS: CYANOCOBALAMIN 1,000 MCG TAB PO SCH (07:59)
[2023-01-09] MEDS: APIXABAN 2.5 MG TABLET PO SCH ×2 (07:59→19:34)
[2023-01-09] MEDS: CITALOPRAM 10 MG TABLET PO SCH (07:59)
[2023-01-09] MEDS: FERROUS SULFATE 325 MG TAB PO SCH (07:59)
[2023-01-09] MEDS: FUROSEMIDE 20 MG TABLET PO SCH (08:00)
[2023-01-09] MEDS: SACUBITRIL/VALSARTAN 49/51 MG TAB PO SCH (08:00)
[2023-01-09] MEDS ORDERED: FUROSEMIDE 20 MG TABLET PO SCH (12:00)
[2023-01-09] MEDS: HYDROCODONE/APAP 5/325 MG TAB PO PRN (17:27)
[2023-01-09] MEDS: ALBUTEROL SULFATE IH SCH (17:45)
[2023-01-09] MEDS: SACUBITRIL/VALSARTAN 24/26 MG TAB PO SCH (17:46)
[2023-01-09] MEDS ORDERED: SACUBITRIL/VALSARTAN 49/51 MG TAB PO SCH ×2 (18:00)
[2023-01-09] MEDS ORDERED: SACUBITRIL/VALSARTAN 24/26 MG TAB PO SCH (18:00)
[2023-01-09] MEDS: ATORVASTATIN 10 MG TAB PO SCH (19:34)
[2023-01-09] MEDS: hydrOXYzine HCL 25 MG TAB PO PRN (19:34)
--- NOTE | 2023-01-09 22:55 | PN ---
Date of Progress Note: 01/09/2023 Lafo-Xx-Wugi Progress Note Time Of Service: 1:30 p.m. Subjective: Ms. Tripp reports doing very well. She has no new complaints. She is happy with her th erapy. She enjoys food and again has no new complaints. Review of Systems: She denies any fevers or chills. No nausea or vomiting. No significant myalgias, arthralgias, rash, or other complaints. Physical Examination: Vital Signs: Blood pressure 102 to 120/54 to 68, pulse 76, and oxygen saturation 93%. Pain level 2. Neurologic: Ms. Tripp is resting in bed in between therapy sessions and she has no focal deficits. She has mild diffuse weakness in the lower extremities more than upper extremities, which is the reas on for her debility and why she is in the rehabilitation unit. Otherwise, no focal findings on her e xamination. Laboratory Studies: No new blood work since her last note yesterday. X-ray/imaging: No new x-ray or imaging. Medications: Have been reviewed and remain unchanged. Current Functional Status: Today she ambulated with the physical therapist 200 feet, 175 feet, [facility] er 220 feet, and another 160 feet with contact guard assistance using a rolling walker. She ascended and descended 5 steps with moderate assistance using bilateral handrails. With her occupational the rapy, she did edge of bed and don and doffed shoes independently. However, she did struggle to lift left lower extremity when performing standing balance exercises. Progress Towards Rehabilitation Goals: Ms. Tripp is making great progress towards her goals of becom ing independent with upper body dressing, toileting, transferring, ambulating more than household dis tances 250 feet with independence, up and down 10 steps with independence and she is doing well with her cognitive functioning. Assessment: Ms. Tripp is a 72-year-old patient in the rehabilitation unit with debility, anxiety, co ngestive heart failure, depression, dyslipidemia, hypertension, coronary artery disease, chronic L1 c ompression fracture, chronic right inferior pubic rami fracture, left hip fracture, proximal right hu meral fracture, and chronic obstructive pulmonary disease. She is making good progress towards her r ehabilitation goals and she is admitted to the rehabilitation unit with debility. Plan: 1.Continue physical and occupational therapy 3 hours a day, 5 of 7 days .. 2.She has Eliquis for DVT prophylaxis. She has SUZAN hose and abdominal binders for any orthostatic b lood pressures, which have been improving. 3.For her comorbid conditions as listed above, she will continue her medications including the Eliqu is, aspirin, Lipitor, Buspar, Coreg, [place], Celexa, Plavix, ferrous sulfate, Lasix, Atarax for sleep, Synthroid, Protonix, and Senokot-S for constipation. Comorbids That Are Continuing To Impact Her Rehabilitation: At this point, her comorbids are well ma naged and do not negatively impact her rehabilitation. LARISA/NADYA Voice ID: [id number] Report ID: [id number]
[2023-01-10] MEDS: ALBUTEROL SULFATE IH SCH ×5 (00:05→23:27)
[2023-01-10] MEDS: carvediloL 3.125 MG TAB PO SCH ×2 (05:07→17:55)
[2023-01-10] MEDS: LEVOTHYROXINE SOD 0.1 MG TAB PO SCH (06:47)
[2023-01-10] MEDS: FUROSEMIDE 20 MG TABLET PO SCH (08:00)
[2023-01-10] MEDS: PANTOPRAZOLE 40MG TABLET PO SCH (08:25)
[2023-01-10] MEDS: CLOPIDOGREL 75 MG TABLET PO SCH (08:26)
[2023-01-10] MEDS: APIXABAN 2.5 MG TABLET PO SCH ×2 (08:27→19:45)
[2023-01-10] MEDS: CITALOPRAM 10 MG TABLET PO SCH (08:27)
[2023-01-10] MEDS: FERROUS SULFATE 325 MG TAB PO SCH (08:27)
[2023-01-10] MEDS: CYANOCOBALAMIN 1,000 MCG TAB PO SCH (08:28)
[2023-01-10] MEDS: ASPIRIN EC 81 MG TAB PO SCH (08:28)
[2023-01-10] MEDS: LIDOCAINE 4% PATCH TOP SCH (08:50)
[2023-01-10] MEDS: HYDROCODONE/APAP 5/325 MG TAB PO PRN ×2 (09:40→19:49)
[2023-01-10] MEDS: SACUBITRIL/VALSARTAN 24/26 MG TAB PO SCH (17:57)
[2023-01-10] MEDS: ATORVASTATIN 10 MG TAB PO SCH (19:45)
[2023-01-10] MEDS: DOCUSATE NA/SENNA CONC 1 TAB PO PRN (19:49)
[2023-01-10] MEDS: hydrOXYzine HCL 25 MG TAB PO PRN (19:50)
--- NOTE | 2023-01-10 22:22 | PN ---
Date of Progress Note: 01/10/2023 Time Of Service: 1 p.m. Subjective: Ms. Tripp is doing very well, resting in her room between therapy sessions. She has no new complaints. Review of Systems: No fevers or chills. No nausea or vomiting. No myalgias or arthralgias. No other complaints. Physical Examination: Vital Signs: Blood pressure 126/61, pulse 72, respiratory rate 16, and temperature 97.9. Orthostati c blood pressures were done: Lying blood pressure 115/49, pulse 73 and standing blood pressure dropp ed to 94/59 with pulse of 73. She is mildly symptomatic. Neurologic: Otherwise in terms of her examination, she has no focal neurological deficits. Abdomen: Soft. Extremities: No significant edema. Lungs: Good air movement bilaterally. Laboratory Studies: No new laboratory studies. X-ray/imaging: No new x-rays or imaging. Medications: Have been reviewed and are unchanged. Current Functional Status: Currently supine to sit transfers done independently, multiple stand and pivot transfers done with standby assistance using a rolling walker. She did wash her face and brush her teeth independently. She ambulated 75 feet, 150 feet, 200 feet, 250 feet, 50 feet, and another 140 feet with standby assistance using a rolling walker. Progress Towards Rehabilitation Goals: Ms. Tripp is making excellent progress towards her goals of b ecoming independent with upper and lower body dressing, transferring, toileting, showering, ambulatin g now 250 feet with modified independence and up and down 10 steps with modified independence. Assessment: Ms. Tripp is a 72-year-old patient admitted to the rehabilitation unit with debility. S he has anxiety, congestive heart failure, depression, dyslipidemia, hypertension, coronary artery dis ease, and a chronic L1 compression fracture. She also has a chronic right inferior pubic rami fractu re, chronic left hip fracture, and chronic proximal right humeral fracture. In addition, she has chr onic obstructive pulmonary disease. Despite her multiple comorbid conditions, those are stably manag ed and she is doing very well with her rehabilitation. Plan: 1.Continue with physical and occupational therapy 3 hours a day, 5 of 7 days. 2.Continue Eliquis for DVT prophylaxis. 3.SUZAN hose and abdominal binders for orthostatic blood pressure changes. 4.Continue all medications for her comorbid conditions that are listed above. 5.Use Atarax for insomnia and Senokot for constipation. Comorbids That Are Continuing To Impact Her Rehabilitation: Right now despite her multiple comorbid conditions, no condition is negatively impacting her rehabilitation and she is making excellent progr ess. LARISA/NADYA Voice ID: [id number] Report ID: [id number]
[2023-01-11] MEDS: ALBUTEROL SULFATE IH SCH ×4 (05:07→17:38)
[2023-01-11] MEDS: LEVOTHYROXINE SOD 0.1 MG TAB PO SCH (05:07)
[2023-01-11] MEDS: carvediloL 3.125 MG TAB PO SCH ×2 (05:07→17:39)
[2023-01-11] MEDS ORDERED: BUSPIRONE HCL 5 MG TABLET PO PRN (06:50)
[2023-01-11] MEDS ORDERED: ZOLPIDEM TARTRATE 5 MG TABLET PO PRN (06:55)
[2023-01-11] MEDS: PANTOPRAZOLE 40MG TABLET PO SCH (07:20)
[2023-01-11] MEDS: LIDOCAINE 4% PATCH TOP SCH (07:20)
[2023-01-11 07:46] LABS: Absolute Lymphocytes (CBC) 0.9 K/uL (0.7-4.9); Hematocrit 32.6 % (36.0-45.0); Lymphocytes % 24.2 % (15.3-44.8); MPV 7.4 fL (7.6-11.3); RBC Red Blood Cell Count 3.63 M/uL (3.86-4.86)
[2023-01-11 08:00] LABS: Albumin 2.9 g/dL (3.4-5.0); Magnesium 2.3 mg/dL (1.6-2.4); Prealbumin 15.1 mg/dL (20-40)
[2023-01-11] MEDS: SACUBITRIL/VALSARTAN 24/26 MG TAB PO SCH ×2 (08:00→19:43)
[2023-01-11] MEDS: FUROSEMIDE 20 MG TABLET PO SCH (08:00)
[2023-01-11] MEDS: CLOPIDOGREL 75 MG TABLET PO SCH (08:02)
[2023-01-11] MEDS: FERROUS SULFATE 325 MG TAB PO SCH ×2 (08:02→19:44)
[2023-01-11] MEDS: CYANOCOBALAMIN 1,000 MCG TAB PO SCH (08:02)
[2023-01-11] MEDS: CITALOPRAM 10 MG TABLET PO SCH (08:03)
[2023-01-11] MEDS: ASPIRIN EC 81 MG TAB PO SCH (08:03)
[2023-01-11] MEDS: APIXABAN 2.5 MG TABLET PO SCH ×2 (08:03→19:43)
[2023-01-11] MEDS: ACETAMINOPHEN 500 MG TAB PO PRN ×2 (12:36→16:24)
[2023-01-11] MEDS: ATORVASTATIN 40 MG TAB PO SCH (19:44)
[2023-01-11] MEDS: hydrOXYzine HCL 25 MG TAB PO PRN (19:44)
--- NOTE | 2023-01-11 22:01 | PN ---
Time Of Service: 1 p.m. Subjective: Ms. Tripp is resting well in bed. She says she is somewhat fatigued in the morning sess ion, but she is happy about her therapy. She has no new complaints. Review of Systems: No fevers, chills, nausea, or vomiting. Mild back pain is relieved by a pain patch. No other compla ints. Physical Examination: Vital Signs: Blood pressure 122/67, pulse 72, respiratory rate of 16, temperature 97.8. Regarding o rthostatics, while lying, blood pressure 110/58, pulse of 77; while sitting blood pressure 82/50, pul se of 73; while standing blood pressure 84/52, pulse of 70. Neurological: She did have abdominal binders, but the SUZAN hose were too tight for her. Otherwise, s he has no focal cranial nerve deficits and no focal motor, coordination deficits. She has diffuse we akness in the upper and lower extremities. Laboratory Studies: White blood cell count 3.8, hemoglobin 10.8, platelets 241. Sodium 136, potassi um 4.0, chloride 108, carbon dioxide 28, BUN 22, creatinine 0.88, prealbumin 15.1, albumin 2.9. X-ray/imaging: None. Medications: Have been reviewed and remained unchanged. Current Functional Status: Today she performed [id number] transfers independently. Multiple cammy d and pivot transfers independently using a rolling walker and complete toilet transfers independentl y with a rolling walker and grab bars. She ambulated 250 feet once, another 150 feet 3 times and 75 feet once with standby assistance using a rolling walker. She did have some episodes of decreased bl ood pressure. Regarding occupational therapy, again they noted 89/46 blood pressure lying without ab dominal binder and dropped to 86/46 while sitting in her bed without abdominal binder. Once the abdo fredrick binder was applied, blood pressures go up to 104/56, and then 103/56 while standing for 5 minut es. Progress Towards Rehabilitation Goals: Ms. Tripp is making excellent progress towards the rehabilita tion goals of becoming independent with upper and lower body dressing, toileting, transferring, ambul ating household distances now 250 feet with modified independence to be at goal. She does well with the abdominal binders and she has some difficulty using the SUZAN hose. She may benefit from wrapping the legs to help minimize the drop in blood pressure with standings. Assessment And Plan: Ms. Tripp is a 72-year-old patient in the rehabilitation unit with debility. S he has anxiety, congestive heart failure, dyslipidemia, hypertension, coronary artery disease, chroni c L1 compression fracture, chronic right inferior pubic rami fracture, chronic left hip fracture, chr onic proximal right humeral fracture, and chronic obstructive pulmonary disease. 1.Continue physical and occupational therapy for 3 hours a day, 5 of 7 days. 2.Continue with all comorbid conditions to manage the multiple medical problems as listed. 3.Eliquis for DVT prophylaxis. 4.Abdominal binders for orthostatic changes and perhaps wrapped legs as well. 5.Atarax for insomnia. 6.Senokot for constipation. Comorbidities That Continue To Impact Her Rehabilitation Process: Her big comorbid is the orthostati c changes, which is somewhat mitigated by abdominal binders and could be further helped if she could have the legs wrapped as she cannot tolerate the SUZAN hose. She will be discharged in the morning and continue with aggressive therapy with Home Health following discharge. LARISA/NADYA Voice ID: [id number] Report ID: [id number]
[2023-01-11] MEDS: HYDROCODONE/APAP 5/325 MG TAB PO PRN (22:02)
[2023-01-12] MEDS: LEVOTHYROXINE SOD 0.088 MG TAB PO SCH (05:28)
[2023-01-12] MEDS: carvediloL 3.125 MG TAB PO SCH ×2 (05:28→17:46)
[2023-01-12] MEDS: ALBUTEROL SULFATE IH SCH ×5 (05:28→23:41)
[2023-01-12] MEDS: ACETAMINOPHEN 500 MG TAB PO PRN ×2 (06:06→13:42)
[2023-01-12] MEDS: LIDOCAINE 4% PATCH TOP SCH (07:03)
[2023-01-12] MEDS: PANTOPRAZOLE 40MG TABLET PO SCH (07:04)
[2023-01-12] MEDS: FERROUS SULFATE 325 MG TAB PO SCH ×2 (07:51→19:32)
[2023-01-12] MEDS: CITALOPRAM 10 MG TABLET PO SCH (07:51)
[2023-01-12] MEDS: CYANOCOBALAMIN 1,000 MCG TAB PO SCH (07:52)
[2023-01-12] MEDS: APIXABAN 2.5 MG TABLET PO SCH ×2 (07:52→19:32)
[2023-01-12] MEDS: CLOPIDOGREL 75 MG TABLET PO SCH (07:52)
[2023-01-12] MEDS: ASPIRIN EC 81 MG TAB PO SCH (07:52)
[2023-01-12] MEDS: FUROSEMIDE 20 MG TABLET PO SCH (08:00)
[2023-01-12] MEDS: SACUBITRIL/VALSARTAN 24/26 MG TAB PO SCH (08:00)
--- NOTE | 2023-01-12 09:03 | P.RH.PN ---
Estimated Length of Stay: 9 Expected Discharge Date: 01/13/23 Discharge Disposition Plan: Home Family Support: Yes Academic Coordinator Goal: Mobility, Transfers, Self Care Vital Signs: Last Vital Signs Temp 97.5 F 01/11/23 21:03 Pulse 72 01/12/23 05:28 Resp 18 01/11/23 21:03 BP 105/57 L 01/12/23 05:28 Pulse Ox 98 01/11/23 21:03 Laboratory: Laboratory Last Values WBC 3.80 thou/uL (4.3-10.9) L 01/11/23 07:30 RBC 3.63 M/uL (3.86-4.86) L 01/11/23 07:30 Hgb 10.8 g/dL (12.0-15.0) L 01/11/23 07:30 Hct 32.6 % (36.0-45.0) L 01/11/23 07:30 MCV 90.0 fL (80-100) 01/11/23 07:30 MCH 29.9 pg (27.0-35.0) 01/11/23 07:30 MCHC 33.2 g/dL (32.0-36.0) 01/11/23 07:30 RDW 17.5 % (12.1-15.2) H 01/11/23 07:30 Plt Count 241 thou/uL (152-406) 01/11/23 07:30 MPV 7.4 fL (7.6-11.3) L 01/11/23 07:30 Neutrophils % 54.3 % (41.7-73.7) 01/11/23 07:30 Lymphocytes % 24.2 % (15.3-44.8) 01/11/23 07:30 Monocytes % 11.4 % (3.3-12.3) 01/11/23 07:30 Eosinophils % 9.0 % (0-4.4) H 01/11/23 07:30 Basophils % 1.1 % (0-1.3) 01/11/23 07:30 Absolute Neutrophils 2.1 K/uL (1.8-8.0) 01/11/23 07:30 Absolute Lymphocytes 0.9 K/uL (0.7-4.9) 01/11/23 07:30 Absolute Monocytes 0.4 K/uL (0.1-1.3) 01/11/23 07:30 Absolute Eosinophils 0.3 K/uL (0-0.5) 01/11/23 07:30 Absolute Basophils 0.0 K/uL (0-0.5) 01/11/23 07:30 Sodium 136 mEq/L (136-145) 01/11/23 07:30 Potassium 4.0 mEq/L (3.5-5.1) 01/11/23 07:30 Chloride 108 mEq/L (98-107) H 01/11/23 07:30 Carbon Dioxide 28 mEq/L (21-32) 01/11/23 07:30 Anion Gap 4.0 mEq/L (5.0-15.0) L 01/11/23 07:30 BUN 22 mg/dL (7-18) H 01/11/23 07:30 Creatinine 0.88 mg/dL (0.55-1.02) 01/11/23 07:30 Est GFR (CKD-EPI) 69 ml/min (=/>90) L 01/11/23 07:30 Glucose 92 mg/dL (74-106) 01/11/23 07:30 Calcium 8.5 mg/dL (8.5-10.1) 01/11/23 07:30 Magnesium 2.3 mg/dL (1.6-2.4) 01/11/23 07:30 Albumin 2.9 g/dL (3.4-5.0) L 01/11/23 07:30 Prealbumin 15.1 mg/dL (20-40) L 01/11/23 07:30 Urine Color Light-yellow (Yellow) 01/06/23 23:15 Urine Clarity Clear (Clear) 01/06/23 23:15 Urine pH 6.5 (5.0-7.0) 01/06/23 23:15 Ur Specific [place] 1.009 (1.005-1.030) 01/06/23 23:15 Glucose (UA)(Auto) Negative (Negative) 01/06/23 23:15 Urine Ketones Negative (Negative) 01/06/23 23:15 Urine Blood Negative (Negative) 01/06/23 23:15 Urine Nitrite Negative (Negative) 01/06/23 23:15 Urine Bilirubin Negative (Negative) 01/06/23 23:15 Urine Urobilinogen Normal (Normal) 01/06/23 23:15 Ur Leukocyte Esterase 75 Sarbjit/uL (Negative) H 01/06/23 23:15 Urine RBC <5 /HPF (None Seen) 01/06/23 23:15 Urine WBC 5-10 /HPF (<5) 01/06/23 23:15 Ur Squamous Epith Cells None seen /HPF (None Seen) 01/06/23 23:15 Ur Renal Epithelial Cell <5 /HPF (None Seen) 01/06/23 23:15 Urine Bacteria None seen /HPF (<20) 01/06/23 23:15 Urine Mucus Slight /HPF (None Seen) 01/06/23 23:15 Urine Culture Reflexed Not needed 01/06/23 23:15 Urine Total Protein Negative (Negative) 01/06/23 23:15 Weight: 194 lb 0.003 oz Wound Present: No Closed Surgical Incision Present: No Negative Pressure Wound Therapy Present: No Physician Update: Labs reviewed and are stable. Mild anemia and malnutrition. Her back pain is better with a patch. She will discharge home in AM. 250' with SBA and RW. Up and down 5 steps. Doing well with ADLs but she has orthostatic drop in blood pressure helped by an abdominal binder. Summary: Patient's care plan and correction goals have been reviewed and revised as necessary. Please see the Rehabilitation Signature page for all necessary signatures.
[2023-01-12] MEDS: ONDANSETRON 4 MG (ODT) TAB PO PRN (12:39)
[2023-01-12] MEDS: HYDROCODONE/APAP 5/325 MG TAB PO PRN ×2 (16:30→23:41)
[2023-01-12] MEDS: ATORVASTATIN 40 MG TAB PO SCH (19:32)
[2023-01-12] MEDS: hydrOXYzine HCL 25 MG TAB PO PRN (19:35)
[2023-01-13] MEDS: carvediloL 3.125 MG TAB PO SCH ×2 (05:32→18:05)
[2023-01-13] MEDS: ALBUTEROL SULFATE IH SCH ×3 (05:32→18:06)
[2023-01-13] MEDS: LEVOTHYROXINE SOD 0.088 MG TAB PO SCH (05:32)
[2023-01-13] MEDS: SACUBITRIL/VALSARTAN 24/26 MG TAB PO SCH ×2 (08:00→09:16)
[2023-01-13] MEDS: PANTOPRAZOLE 40MG TABLET PO SCH (08:47)
[2023-01-13] MEDS: HYDROCODONE/APAP 5/325 MG TAB PO PRN ×2 (09:14→19:16)
[2023-01-13] MEDS: CLOPIDOGREL 75 MG TABLET PO SCH (09:17)
[2023-01-13] MEDS: CITALOPRAM 10 MG TABLET PO SCH (09:17)
[2023-01-13] MEDS: ASPIRIN EC 81 MG TAB PO SCH (09:17)
[2023-01-13] MEDS: FERROUS SULFATE 325 MG TAB PO SCH ×2 (09:17→19:15)
[2023-01-13] MEDS: LIDOCAINE 4% PATCH TOP SCH (09:18)
[2023-01-13] MEDS: APIXABAN 2.5 MG TABLET PO SCH ×2 (09:18→19:15)
[2023-01-13] MEDS: CYANOCOBALAMIN 1,000 MCG TAB PO SCH (09:18)
[2023-01-13] MEDS: ATORVASTATIN 40 MG TAB PO SCH (19:15)
[2023-01-13] MEDS: hydrOXYzine HCL 25 MG TAB PO PRN (19:15)
[2023-01-14] MEDS: HYDROCODONE/APAP 5/325 MG TAB PO PRN ×3 (02:50→22:56)
[2023-01-14] MEDS: carvediloL 3.125 MG TAB PO SCH ×2 (05:30→17:36)
[2023-01-14] MEDS: ALBUTEROL SULFATE IH SCH ×5 (05:31→23:47)
[2023-01-14] MEDS: LEVOTHYROXINE SOD 0.088 MG TAB PO SCH (06:41)
[2023-01-14] MEDS: PANTOPRAZOLE 40MG TABLET PO SCH (07:36)
[2023-01-14] MEDS: LIDOCAINE 4% PATCH TOP SCH (07:37)
[2023-01-14] MEDS: ASPIRIN EC 81 MG TAB PO SCH (07:37)
[2023-01-14] MEDS: CLOPIDOGREL 75 MG TABLET PO SCH (07:37)
[2023-01-14] MEDS: FERROUS SULFATE 325 MG TAB PO SCH ×2 (07:38→19:43)
[2023-01-14] MEDS: APIXABAN 2.5 MG TABLET PO SCH ×2 (07:38→19:43)
[2023-01-14] MEDS: CITALOPRAM 10 MG TABLET PO SCH (07:38)
[2023-01-14] MEDS: CYANOCOBALAMIN 1,000 MCG TAB PO SCH (07:38)
[2023-01-14] MEDS: SACUBITRIL/VALSARTAN 24/26 MG TAB PO SCH (08:00)
[2023-01-14] MEDS: LIDOCAINE 4% PATCH TOP ONE (10:18)
[2023-01-14] MEDS: ACETAMINOPHEN 500 MG TAB PO PRN (12:12)
[2023-01-14] MEDS: hydrOXYzine HCL 25 MG TAB PO PRN (19:43)
[2023-01-14] MEDS: ATORVASTATIN 40 MG TAB PO SCH (19:43)
[2023-01-14 21:56] VITALS: TEMP 97.1
[2023-01-15] MEDS: HYDROCODONE/APAP 5/325 MG TAB PO PRN (04:34)
[2023-01-15] MEDS: ALBUTEROL SULFATE IH SCH (05:39)
[2023-01-15] MEDS: LEVOTHYROXINE SOD 0.088 MG TAB PO SCH (05:40)
[2023-01-15] MEDS: carvediloL 3.125 MG TAB PO SCH (05:40)
[2023-01-15] MEDS: PANTOPRAZOLE 40MG TABLET PO SCH (08:00)
[2023-01-15] MEDS: SACUBITRIL/VALSARTAN 24/26 MG TAB PO SCH (08:00)
[2023-01-15] MEDS ORDERED: LIDOCAINE 4% PATCH TOP SCH (08:00)
[2023-01-15] MEDS: APIXABAN 2.5 MG TABLET PO SCH (08:07)
[2023-01-15] MEDS: CITALOPRAM 10 MG TABLET PO SCH (08:07)
[2023-01-15] MEDS: CYANOCOBALAMIN 1,000 MCG TAB PO SCH (08:07)
[2023-01-15] MEDS: FERROUS SULFATE 325 MG TAB PO SCH (08:08)
[2023-01-15] MEDS: CLOPIDOGREL 75 MG TABLET PO SCH (08:08)
[2023-01-15] MEDS: ASPIRIN EC 81 MG TAB PO SCH (08:08)
[2023-01-15 08:57] VITALS: BP 108/57
[2023-01-15] MEDS: LIDOCAINE 4% PATCH TOP ONE (10:04)
[2023-01-15] MEDS: ACETAMINOPHEN 500 MG TAB PO PRN (10:50)
== END 2023-01-15 11:05 | disposition home health service (06) | DRG 948 ==
LOC: 5TH 10:35
PROVIDERS: ADMIT Psychiatry & Neurology Neurology with Special Qualifications in Child Neurology; ATTEND Psychiatry & Neurology Neurology with Special Qualifications in Child Neurology
DX: R53.81 Other malaise (principal); E78.5 Hyperlipidemia, unspecified; J44.9 Chronic obstructive pulmonary disease, unspecified; E05.00 Thyrotoxicosis with diffuse goiter without thyrotoxic crisis or storm; I73.9 Peripheral vascular disease, unspecified; I25.10 Atherosclerotic heart disease of native coronary artery without angina pectoris; F41.9 Anxiety disorder, unspecified; F32.A Depression, unspecified; K57.90 Diverticulosis of intestine, part unspecified, without perforation or abscess without bleeding; I11.0 Hypertensive heart disease with heart failure; I50.9 Heart failure, unspecified; S32.029D Unspecified fracture of second lumbar vertebra, subsequent encounter for fracture with routine healing; Z95.810 Presence of automatic (implantable) cardiac defibrillator; S32.591D Other specified fracture of right pubis, subsequent encounter for fracture with routine healing; S42.201D Unspecified fracture of upper end of right humerus, subsequent encounter for fracture with routine healing
CPT/HCPCS: 36415; 70450; 71045; 74176; 80048; 81001; 82040; 83735; 83880; 84134; 84439; 84443; 84484; 85025; 85610; 85730; 87086; 87088; 93005; 94010; 96361; 96374; 97110; 97112; 97116; 97161; 97165; 97530; 99285; G0378; J1650; J2001; J2405; J7030; J7040; Q0162

== ENCOUNTER → 2023-11-15 | Emergency (ER) | payer OTHER ==
[~2023-11-15] MED LIST: CIPROFLOXACIN HCL 500 MG TAB ONE; ONDANSETRON 4 MG/2 ML VIAL ONE
--- OUTSIDE RECORDS SUMMARY | 2023-11-15 07:07 | XMS REPORT | Continuity of Care Document ---
Author Name Unknown Address [address] [facility] [address] [place] [address] [facility] Address [address] [facility] [address] [place] [address] Care Team Providers Care Land Surveyor Name Role Phone JUICE MCMULLEN Primary Care Physician Unavailab Juice Yepez Attending Clinician Unavailable AUREA SANTOS Attending Clinician Unav ailable AUREA SANTOS Attending Clinician Unav ailable CHIDI FLOWERS Attending Clinician Unavailable Lionel CONTRERAS, Chidi Attending Clinician [phone] Pob, 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 Attending Clinician UnavailTAMMY Oconnor Attending Clinician Unavailable Doctor Unassigned, [place] Attending Clinician U Tammy Guadalupe MD Attending Clinician 1, [facility] Attending Clinician Unavailable Charlene Clark PA-C Attending Clinician [phone] KAMERON HAYES Attending Clinician Unavailable Kameron Laureano S Attending Clinician [phone] Omole PATIENT NAVIGATOR, Jack Gruber Attending Clinician + [phone] [place] PATIENT NAVIGATOR, Lorraine Attending Clinician [phone] Only, [facility] Test Attending Clinician Unavailable YUDITH ROMAN Attending Clinician Unavailable JACK GOSS Attending Clinician Geronimo kumar Pacemaker/Icd, Adc Attending Clinician Unavailab le Fac, [facility] Heart Failure Cardio Attending Clinicia n Unavailable Visit, [facility] Nurse Attending Clinician Unavailable Tu CONTRERAS, Giacomo CarcamoHDo Attending Clinician [phone] Farhat Piña MD Attending Clinician + FARHAT PIÑA Attending Clinician Unav ailable Pc, [facility] Echo Room 1 - Attending Clinician Karlene Arriaza Attending Clinician [phone] TAMMY ARGUETA Admitting Clinician Unavailable Tammy Argueta MD Admitting Clinician [phone] CHIDI FLOWERS Admitting Clinician Unavailable Payers Payer Name Policy Type Policy Number Effective Date Expirati on Date Source MEDICARE PART A \\T\\ B [id number] 2014 00:00:00 MEDICARE NOV[place] MB [id number] 2014 00:00:00 [facility] MEDICARE NOVITAS MB [id number] 2014 00:00:00 [facility] MEDICARE NOVITAS MB [id number] 2014 00:00:00 [facility] MEDICARE NOVITAS MB [id number] 2014 00:00:00 [facility] MEDICARE NOVITAS MB [id number] 2014 00:00:00 [facility] MEDICARE NOVITAS MB [id number] 2014 00:00:00 [facility] MEDICARE NOVITAS [id number] 2014 00:00:00 [facility] MEDICARE NOVITAS [id number] 2014 00:00:00 [facility] Problems Condition Name Condition Details Condition Category Status Onset Date Resolution Date Last Treatment Date Treating Clinician Comments Source Hyperlipid emia, unspecifie d hyperlipid emia type Hyperlipid emia, unspecifie d hyperlipid emia type Disease Active 12-18 00:00: 00 [facility] Primary hypertensi on Primary hypertensi on Disease Active 12-18 00:00: 00 [facility] Abdominal pain Abdominal pain Disease Active 2021-09 00:00: 00 [facility] Chest pain, rule out acute myocardial infarction Chest pain, rule out acute myocardial infarction Disease Active 2021-09 00:00: 00 [facility] History of mitral valve prolapse History of mitral valve prolapse Disease Active 2021-09 00:00: 00 [facility] History of implantabl e cardiovert er-defibri llator (ICD) placement History of implantabl e cardiovert er-defibri llator (ICD) placement Disease Active 2021-09 00:00: 00 [facility] Postoperat kyree anemia due to acute blood loss Postoperat kyree anemia due to acute blood loss Disease Active 2021-09 00:00: 00 [facility] Abnormal sensing of implantabl e cardiovert er-defibri llator (ICD), initial encounter Abnormal sensing of implantabl e cardiovert er-defibri llator (ICD), initial encounter Disease Active 05-04 00:00: 00 Overview: Formattin g of this note might be different from the original. 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, unspecifie d vessel or lesion type Disease Active 12-17 00:00: 00 [facility] 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 Disease Active 2015-09 00:00: 00 [facility] Borderline hyperlipid emia Borderline hyperlipid emia Disease Active 2015-09 00:00: 00 [facility] Compressio n fracture Compressio n fracture Disease Active 2015-09 00:00: 00 [facility] Fall Fall Disease Active 2015-09 00:00: 00 [facility] Hypertensi on with goal to be determined Hypertensi on with goal to be determined Disease Active 2015-09 00:00: 00 [facility] Lung nodule seen on imaging study Lung nodule seen on imaging study Disease Active 2015-09 00:00: 00 [facility] Lung mass Lung mass Disease Active 2015-09 00:00: 00 [facility] Neurogenic syncope Neurogenic syncope Disease Active 2015-09 00:00: 00 [facility] OP (osteoporo sis) OP (osteoporo sis) Disease Active 2015-09 00:00: 00 [facility] Subcapital fracture of femur Subcapital fracture of femur Disease Active 2015-09 00:00: 00 [facility] [id number] Other chronic pain Problem [facility] [id number] Lumbago with sciatica, left side Problem [facility] [id number] Lumbago with sciatica, right side Problem [facility] [id number] Stage 3a chronic kidney disease Problem [facility] [id number] Body mass index [BMI] 31.0-31.9, adult Problem [facility] [id number] Other obesity due to excess calories Problem [facility] Hypothyroi dism Hypothyroi dism Problem [facility] Allergic rhinitis Allergic rhinitis Problem [facility] Dizziness Dizziness [facility] Stented coronary artery Stented coronary artery Problem [facility] Transient ischemic attack TIA (transient ischemic attack) Problem [facility] Internal hemorrhoid s Internal hemorrhoid s Problem [facility] Headache Head ache [facility] [id number] GERD without esophagiti s Problem [facility] Insomnia Insomnia Problem [facility] [id number] Chronic systolic congestive heart failure Problem [facility] Peripheral vascular disease Peripheral vascular disease Problem [facility] Gastritis Gastritis [facility] Atheroscle rotic heart disease of tulalip coronary artery without angina pectoris Atheroscle rosis of coronary artery of tulalip heart Problem [facility] Diverticul ar disease of colon Diverticul osis large intestine w/o perforatio n or abscess w/o bleeding Problem [facility] [id number] Congestive heart failure, unspecifie d HF chronicity , unspecifie d heart failure type Problem [facility] Vasovagal syncope Vasovagal syncope Problem [facility] [id number] Biventricu lar ICD (implantab le cardiovert er-defibri llator) in place Problem [facility] [id number] Iron deficiency anemia, unspecifie d iron deficiency anemia type Problem [facility] [id number] 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 Problem [facility] Chronic obstructiv e pulmonary disease Chronic obstructiv e pulmonary disease, unspecifie d COPD type Problem [facility] [id number] Age-relate d osteoporos is without current pathologic al fracture Problem [facility] Bradycardi a Bradycardi a Problem [facility] [id number] Hypocalcem ia Problem [facility] [id number] Recurrent falls Problem [facility] [id number] Depression with anxiety Problem [facility] [id number] +5th digit eff 06/24/20*CK D (chronic kidney disease) stage 3, GFR 30-59 ml/min Problem [facility] [id number] Mixed hyperlipid emia Problem [facility] [id number] Moderate major depression , single episode Problem [facility] Myocardial infarction Myocardial infarction Problem [facility] Closed fracture of femur Femur fracture Problem [facility] Allergies, Adverse Reactions, Alerts Allergy Name Allergy Type Status Severity Reaction(s) Onset Date Inactive Date Treating Clinician Comments Source Sulfa (Sulfona mide Antibiot ics) Propensi ty to adverse reaction s Active Unknown - See comments 2015-09 00:00: 00 Does not remember it has been many years ago [facility] SULFA (SULFONA MIDE ANTIBIOT ICS) Drug Class Active Unknown-Cmnt 2015-09 00:00: 00 [facility] Social History Social Habit Start Date Stop Date Quantity Comments Source History of Tobacco Use [facility] Sex Assigned At [facility] 2023-08-29 00:00:00 2023-08-29 00:00:00 Current non-drinker of alcohol (finding) [facility] Exposure to SARS-CoV-2 (event) 2022-12-08 00:00:00 2022-12-18 13:14:00 Not sure [facility] History of Social function 2021-05-10 00:00:00 2021-05-10 00:00:00 [facility] Tobacco use and exposure 2016-08-31 00:00:00 2016-08-31 00:00:00 Smokeless tobacco non-user [facility] Smoking Status Start Date Stop Date Source Never smoked tobacco [facility] Medications Ordered Medication Name Filled Medication Name Start Date Stop Date Current Medication? Ordering Clinician Indication Dosage Frequency Signature (SIG) Comments Components Source sulfur hexafluorid e microsphr (LUMASON) injection 5 mL 2022-09 20:45: 00 08-29 20:38 :00 No [id number] 5mL 5 mL, Intravenou s, ONCE, 1 dose, On Sun08/29/23 at 1445, Routine
membership administrator approving Restricted medication : CHIDI FLOWERS [facility] sulfaSALAzi ne 500 mg tablet 2022-09 15:08: 14 Yes 2 tablet [facility] sulfaSALAzi ne 500 mg tablet 2022-09 15:08: 14 Yes 2 tablet [facility] sulfaSALAzi ne 500 mg tablet 2022-09 15:08: 14 Yes 2 tablet [facility] sulfaSALAzi ne 500 mg tablet 2022-09 15:08: 14 Yes 2 tablet [facility] sulfaSALAzi ne 500 mg tablet 2022-09 15:08: 14 Yes 2 tablet [facility] sulfaSALAzi ne 500 mg tablet 2022-09 15:08: 14 Yes 2 tablet [facility] sulfaSALAzi ne 500 mg tablet 2022-09 15:08: 14 Yes 2 tablet [facility] sulfaSALAzi ne 500 mg tablet 2022-09 15:08: 14 Yes 2 tablet [facility] sulfaSALAzi ne 500 mg tablet 2022-09 15:08: 14 Yes 2 tablet [facility] pantoprazol e 40 mg EC tablet 2022-09 15:07: 40 Yes 40mg Take 1 tablet by mouth in the morning. [facility] citalopram 20 mg tablet 2022-09 15:07: 40 Yes 20mg Take 1 tablet by mouth in the morning. [facility] meclizine 25 mg tablet 2022-09 15:07: 40 Yes meclizine 25 mg tablet [facility] metroNIDAZO LE 500 mg tablet 2022-09 15:07: 40 Yes metronidaz ole 500 mg tablet [facility] ondansetron 4 mg tablet 2022-09 15:07: 40 Yes ondansetro n HCl 4 mg tablet [facility] calcitONIN, salmon, 200 unit/actuat ion nasal spray 2022-09 15:07: 40 Yes calcitonin (salmon) 200 unit/actua tion nasal spray [facility] balsalazide 750 mg capsule 2022-09 15:07: 40 Yes balsalazid e 750 mg capsule [facility] pantoprazol e 40 mg EC tablet 2022-09 15:07: 40 Yes 40mg Take 1 tablet by mouth in the morning. [facility] citalopram 20 mg tablet 2022-09 15:07: 40 Yes 20mg Take 1 tablet by mouth in the morning. [facility] meclizine 25 mg tablet 2022-09 15:07: 40 Yes meclizine 25 mg tablet [facility] metroNIDAZO LE 500 mg tablet 2022-09 15:07: 40 Yes metronidaz ole 500 mg tablet [facility] ondansetron 4 mg tablet 2022-09 15:07: 40 Yes ondansetro n HCl 4 mg tablet [facility] calcitONIN, salmon, 200 unit/actuat ion nasal spray 2022-09 15:07: 40 Yes calcitonin (salmon) 200 unit/actua tion nasal spray [facility] balsalazide 750 mg capsule 2022-09 15:07: 40 Yes balsalazid e 750 mg capsule [facility] pantoprazol e 40 mg EC tablet 2022-09 15:07: 40 Yes 40mg Take 1 tablet by mouth in the morning. [facility] citalopram 20 mg tablet 2022-09 15:07: 40 Yes 20mg Take 1 tablet by mouth in the morning. [facility] meclizine 25 mg tablet 2022-09 15:07: 40 Yes meclizine 25 mg tablet [facility] metroNIDAZO LE 500 mg tablet 2022-09 15:07: 40 Yes metronidaz ole 500 mg tablet [facility] ondansetron 4 mg tablet 2022-09 15:07: 40 Yes ondansetro n HCl 4 mg tablet [facility] calcitONIN, salmon, 200 unit/actuat ion nasal spray 2022-09 15:07: 40 Yes calcitonin (salmon) 200 unit/actua tion nasal spray [facility] balsalazide 750 mg capsule 2022-09 15:07: 40 Yes balsalazid e 750 mg capsule [facility] pantoprazol e 40 mg EC tablet 2022-09 15:07: 40 Yes 40mg Take 1 tablet by mouth in the morning. [facility] citalopram 20 mg tablet 2022-09 15:07: 40 Yes 20mg Take 1 tablet by mouth in the morning. [facility] meclizine 25 mg tablet 2022-09 15:07: 40 Yes meclizine 25 mg tablet [facility] metroNIDAZO LE 500 mg tablet 2022-09 15:07: 40 Yes metronidaz ole 500 mg tablet [facility] ondansetron 4 mg tablet 2022-09 15:07: 40 Yes ondansetro n HCl 4 mg tablet [facility] calcitONIN, salmon, 200 unit/actuat ion nasal spray 2022-09 15:07: 40 Yes calcitonin (salmon) 200 unit/actua tion nasal spray [facility] balsalazide 750 mg capsule 2022-09 15:07: 40 Yes balsalazid e 750 mg capsule [facility] pantoprazol e 40 mg EC tablet 2022-09 15:07: 40 Yes 40mg Take 1 tablet by mouth in the morning. [facility] citalopram 20 mg tablet 2022-09 15:07: 40 Yes 20mg Take 1 tablet by mouth in the morning. [facility] meclizine 25 mg tablet 2022-09 15:07: 40 Yes meclizine 25 mg tablet [facility] metroNIDAZO LE 500 mg tablet 2022-09 15:07: 40 Yes metronidaz ole 500 mg tablet [facility] ondansetron 4 mg tablet 2022-09 15:07: 40 Yes ondansetro n HCl 4 mg tablet [facility] calcitONIN, salmon, 200 unit/actuat ion nasal spray 2022-09 15:07: 40 Yes calcitonin (salmon) 200 unit/actua tion nasal spray [facility] balsalazide 750 mg capsule 2022-09 15:07: 40 Yes balsalazid e 750 mg capsule [facility] pantoprazol e 40 mg EC tablet 2022-09 15:07: 40 Yes 40mg Take 1 tablet by mouth in the morning. [facility] citalopram 20 mg tablet 2022-09 15:07: 40 Yes 20mg Take 1 tablet by mouth in the morning. [facility] meclizine 25 mg tablet 2022-09 15:07: 40 Yes meclizine 25 mg tablet [facility] metroNIDAZO LE 500 mg tablet 2022-09 15:07: 40 Yes metronidaz ole 500 mg tablet [facility] ondansetron 4 mg tablet 2022-09 15:07: 40 Yes ondansetro n HCl 4 mg tablet [facility] calcitONIN, salmon, 200 unit/actuat ion nasal spray 2022-09 15:07: 40 Yes calcitonin (salmon) 200 unit/actua tion nasal spray [facility] balsalazide 750 mg capsule 2022-09 15:07: 40 Yes balsalazid e 750 mg capsule [facility] pantoprazol e 40 mg EC tablet 2022-09 15:07: 40 Yes 40mg Take 1 tablet by mouth in the morning. [facility] citalopram 20 mg tablet 2022-09 15:07: 40 Yes 20mg Take 1 tablet by mouth in the morning. [facility] meclizine 25 mg tablet 2022-09 15:07: 40 Yes meclizine 25 mg tablet [facility] metroNIDAZO LE 500 mg tablet 2022-09 15:07: 40 Yes metronidaz ole 500 mg tablet [facility] ondansetron 4 mg tablet 2022-09 15:07: 40 Yes ondansetro n HCl 4 mg tablet [facility] calcitONIN, salmon, 200 unit/actuat ion nasal spray 2022-09 15:07: 40 Yes calcitonin (salmon) 200 unit/actua tion nasal spray [facility] balsalazide 750 mg capsule 2022-09 15:07: 40 Yes balsalazid e 750 mg capsule [facility] pantoprazol e 40 mg EC tablet 2022-09 15:07: 40 Yes 40mg Take 1 tablet by mouth in the morning. [facility] citalopram 20 mg tablet 2022-09 15:07: 40 Yes 20mg Take 1 tablet by mouth in the morning. [facility] meclizine 25 mg tablet 2022-09 15:07: 40 Yes meclizine 25 mg tablet [facility] metroNIDAZO LE 500 mg tablet 2022-09 15:07: 40 Yes metronidaz ole 500 mg tablet [facility] ondansetron 4 mg tablet 2022-09 15:07: 40 Yes ondansetro n HCl 4 mg tablet [facility] calcitONIN, salmon, 200 unit/actuat ion nasal spray 2022-09 15:07: 40 Yes calcitonin (salmon) 200 unit/actua tion nasal spray [facility] balsalazide 750 mg capsule 2022-09 15:07: 40 Yes balsalazid e 750 mg capsule [facility] pantoprazol e 40 mg EC tablet 2022-09 15:07: 40 Yes 40mg Take 1 tablet by mouth in the morning. [facility] citalopram 20 mg tablet 2022-09 15:07: 40 Yes 20mg Take 1 tablet by mouth in the morning. [facility] meclizine 25 mg tablet 2022-09 15:07: 40 Yes meclizine 25 mg tablet [facility] metroNIDAZO LE 500 mg tablet 2022-09 15:07: 40 Yes metronidaz ole 500 mg tablet [facility] ondansetron 4 mg tablet 2022-09 15:07: 40 Yes ondansetro n HCl 4 mg tablet [facility] calcitONIN, salmon, 200 unit/actuat ion nasal spray 2022-09 15:07: 40 Yes calcitonin (salmon) 200 unit/actua tion nasal spray [facility] balsalazide 750 mg capsule 2022-09 15:07: 40 Yes balsalazid e 750 mg capsule [facility] Cholecalcif brenda, Vitamin D3, 25 mcg (1,000 unit) capsule 2022-09 15:05: 25 Yes 1 capsule [facility] budesonide- formoteroL (SYMBICORT) 160-4.5 mcg/actuati on inhaler 2022-09 15:05: 25 Yes 2 puffs [facility] Cholecalcif brenda, Vitamin D3, 25 mcg (1,000 unit) capsule 2022-09 15:05: 25 Yes 1 capsule [facility] budesonide- formoteroL (SYMBICORT) 160-4.5 mcg/actuati on inhaler 2022-09 15:05: 25 Yes 2 puffs [facility] Cholecalcif brenda, Vitamin D3, 25 mcg (1,000 unit) capsule 2022-09 15:05: 25 Yes 1 capsule [facility] budesonide- formoteroL (SYMBICORT) 160-4.5 mcg/actuati on inhaler 2022-09 15:05: 25 Yes 2 puffs [facility] Cholecalcif brenda, Vitamin D3, 25 mcg (1,000 unit) capsule 2022-09 15:05: 25 Yes 1 capsule [facility] budesonide- formoteroL (SYMBICORT) 160-4.5 mcg/actuati on inhaler 2022-09 15:05: 25 Yes 2 puffs [facility] Cholecalcif brenda, Vitamin D3, 25 mcg (1,000 unit) capsule 2022-09 2 15:05: 25 Yes 1 capsule [facility] budesonide- formoteroL (SYMBICORT) 160-4.5 mcg/actuati on inhaler 2022-09 15:05: 25 Yes 2 puffs [facility] Cholecalcif brenda, Vitamin D3, 25 mcg (1,000 unit) capsule 2022-09 15:05: 25 Yes 1 capsule [facility] budesonide- formoteroL (SYMBICORT) 160-4.5 mcg/actuati on inhaler 2022-09 15:05: 25 Yes 2 puffs [facility] Cholecalcif brenda, Vitamin D3, 25 mcg (1,000 unit) capsule 2022-09 15:05: 25 Yes 1 capsule [facility] budesonide- formoteroL (SYMBICORT) 160-4.5 mcg/actuati on inhaler 2022-09 15:05: 25 Yes 2 puffs [facility] Cholecalcif brenda, Vitamin D3, 25 mcg (1,000 unit) capsule 2022-09 15:05: 25 Yes 1 capsule [facility] budesonide- formoteroL (SYMBICORT) 160-4.5 mcg/actuati on inhaler 2022-09 15:05: 25 Yes 2 puffs [facility] Cholecalcif brenda, Vitamin D3, 25 mcg (1,000 unit) capsule 2022-09 15:05: 25 Yes 1 capsule [facility] budesonide- formoteroL (SYMBICORT) 160-4.5 mcg/actuati on inhaler 2022-09 2 15:05: 25 Yes 2 puffs [facility] spironolact one 25 mg tablet 2022-09 2 00:00: 00 Yes [id number] 25mg Take 1 tablet by mouth in the morning. [facility] empaglifloz in 10 mg 2022-09 00:00: 00 Yes [id number] 10mg Take 1 tablet by mouth in the morning. [facility] clopidogreL 75 mg tablet 2022-09 00:00: 00 Yes [id number] TAKE 1 TABLET EVERY DAY [facility] furosemide 20 mg tablet 2022-09 00:00: 00 Yes [id number] 20mg Take 1 tablet by mouth in the morning. [facility] carvediloL 3.125 mg tablet 2022-09 00:00: 00 Yes [id number] 3.125mg Take 1 tablet by mouth in the morning. [facility] spironolact one 25 mg tablet 2022-09 00:00: 00 Yes [id number] 25mg Take 1 tablet by mouth in the morning. [facility] empaglifloz in 10 mg 2022-09 00:00: 00 Yes [id number] 10mg Take 1 tablet by mouth in the morning. [facility] clopidogreL 75 mg tablet 2022-09 00:00: 00 Yes [id number] TAKE 1 TABLET EVERY DAY [facility] furosemide 20 mg tablet 2022-09 00:00: 00 Yes [id number] 20mg Take 1 tablet by mouth in the morning. [facility] carvediloL 3.125 mg tablet 2022-09 00:00: 00 Yes [id number] 3.125mg Take 1 tablet by mouth in the morning. [facility] spironolact one 25 mg tablet 2022-09 00:00: 00 Yes [id number] 25mg Take 1 tablet by mouth in the morning. [facility] empaglifloz in 10 mg 2022-09 00:00: 00 Yes [id number] 10mg Take 1 tablet by mouth in the morning. [facility] clopidogreL 75 mg tablet 2022-09 2- 00:00: 00 Yes [id number] TAKE 1 TABLET EVERY DAY [facility] furosemide 20 mg tablet 2022-09 2- 00:00: 00 Yes [id number] 20mg Take 1 tablet by mouth in the morning. [facility] carvediloL 3.125 mg tablet 2022-09 2- 00:00: 00 Yes [id number] 3.125mg Take 1 tablet by mouth in the morning. [facility] spironolact one 25 mg tablet 2022-09 2 00:00: 00 Yes [id number] 25mg Take 1 tablet by mouth in the morning. [facility] empaglifloz in 10 mg 2022-09 00:00: 00 Yes [id number] 10mg Take 1 tablet by mouth in the morning. [facility] clopidogreL 75 mg tablet 2022-09 2- 00:00: 00 Yes [id number] TAKE 1 TABLET EVERY DAY [facility] furosemide 20 mg tablet 2022-09 00:00: 00 Yes [id number] 20mg Take 1 tablet by mouth in the morning. [facility] carvediloL 3.125 mg tablet 2022-09 00:00: 00 Yes [id number] 3.125mg Take 1 tablet by mouth in the morning. [facility] spironolact one 25 mg tablet 2022-09 2- 00:00: 00 Yes [id number] 25mg Take 1 tablet by mouth in the morning. [facility] empaglifloz in 10 mg 2022-09 2- 00:00: 00 Yes [id number] 10mg Take 1 tablet by mouth in the morning. [facility] clopidogreL 75 mg tablet 2022-09 2- 00:00: 00 Yes [id number] TAKE 1 TABLET EVERY DAY [facility] furosemide 20 mg tablet 2022-09 2- 00:00: 00 Yes [id number] 20mg Take 1 tablet by mouth in the morning. [facility] carvediloL 3.125 mg tablet 2022-09 2- 00:00: 00 Yes [id number] 3.125mg Take 1 tablet by mouth in the morning. [facility] spironolact one 25 mg tablet 2022-09 2- 00:00: 00 Yes [id number] 25mg Take 1 tablet by mouth in the morning. [facility] empaglifloz in 10 mg 2022-09 2- 00:00: 00 Yes [id number] 10mg Take 1 tablet by mouth in the morning. [facility] clopidogreL 75 mg tablet 2022-09 2- 00:00: 00 Yes [id number] TAKE 1 TABLET EVERY DAY [facility] furosemide 20 mg tablet 2022-09 00:00: 00 Yes [id number] 20mg Take 1 tablet by mouth in the morning. [facility] carvediloL 3.125 mg tablet 2022-09 00:00: 00 Yes [id number] 3.125mg Take 1 tablet by mouth in the morning. [facility] spironolact one 25 mg tablet 2022-09 2 00:00: 00 Yes [id number] 25mg Take 1 tablet by mouth in the morning. [facility] empaglifloz in 10 mg 2022-09 00:00: 00 Yes [id number] 10mg Take 1 tablet by mouth in the morning. [facility] clopidogreL 75 mg tablet 2022-09 2- 00:00: 00 Yes [id number] TAKE 1 TABLET EVERY DAY [facility] furosemide 20 mg tablet 2022-09 2- 00:00: 00 Yes [id number] 20mg Take 1 tablet by mouth in the morning. [facility] carvediloL 3.125 mg tablet 2022-09 2- 00:00: 00 Yes [id number] 3.125mg Take 1 tablet by mouth in the morning. [facility] clopidogreL 75 mg tablet 2022-09 2- 00:00: 00 Yes [id number] TAKE 1 TABLET EVERY DAY [facility] furosemide 20 mg tablet 2022-09 10-30 00:00: 00 Yes [id number] 20mg Take 1 tablet by mouth in the morning. [facility] carvediloL 3.125 mg tablet 2022-09 00:00: 00 Yes [id number] 3.125mg Take 1 tablet by mouth in the morning. [facility] spironolact one 25 mg tablet 2022-09 00:00: 00 10-01 00:00 :00 No [id number] 25mg Take 1 tablet by mouth in the morning. [facility] empaglifloz in 10 mg 2022-09 00:00: 00 10-01 00:00 :00 No [id number] 10mg Take 1 tablet by mouth in the morning. [facility] Ambien 5 MG Ambien 5 MG 2022-09 00:00: 00 No 1{table t_at_be dtime} QD Ambien 5 MG Ambien 5 MG Ambien 5 MG 2022-09 00:00: 00 No 1{table t_at_be dtime} QD Ambien 5 MG Ambien 5 MG Ambien 5 MG 2022-09 00:00: 00 No 1{table t_at_be dtime} QD Ambien 5 MG Ambien 5 MG Ambien 5 MG 2022-09 00:00: 00 No 1{table t_at_be dtime} QD Ambien 5 MG Ambien 5 MG Ambien 5 MG 2022-09 00:00: 00 No 1{table t_at_be dtime} QD Ambien 5 MG Ambien 5 MG Ambien 5 MG 2022-09 00:00: 00 No 1{table t_at_be dtime} QD Ambien 5 MG Ambien 5 MG Ambien 5 MG 2022-09 00:00: 00 No 1{table t_at_be dtime} QD Ambien 5 MG Ambien 5 MG Ambien 5 MG 2022-09 00:00: 00 No 1{table t_at_be dtime} QD Ambien 5 MG Ambien 5 MG Ambien 5 MG 8- 00:00: 00 No 1{table t_at_be dtime} QD Ambien 5 MG Ambien 5 MG Ambien 5 MG 3-0 8-29 00:00: 00 No 1{table t_at_be dtime} QD Ambien 5 MG Ambien 5 MG Ambien 5 MG 3-0 8- 00:00: 00 No 1{table t_at_be dtime} QD Ambien 5 MG Ambien 5 MG Ambien 5 MG 3-0 8- 00:00: 00 No 1{table t_at_be dtime} QD Ambien 5 MG Ambien 5 MG Ambien 5 MG 3-0 8- 00:00: 00 No 1{table t_at_be dtime} QD Ambien 5 MG Zofran 4 MG Zofran 4 MG 3-0 7-13 00:00: 00 No 1{table t} TID Zofran 4 MG Zofran 4 MG Zofran 4 MG 3-0 7-13 00:00: 00 No 1{table t} TID Zofran 4 MG Zofran 4 MG Zofran 4 MG 3-0 7-13 00:00: 00 No 1{table t} TID Zofran 4 MG Zofran 4 MG Zofran 4 MG 3-0 7-13 00:00: 00 No 1{table t} TID Zofran 4 MG Zofran 4 MG Zofran 4 MG 3-0 7-13 00:00: 00 No 1{table t} TID Zofran 4 MG aspirin 81 mg chewable tablet 02-26 10:20: 25 02-26 00:00 :00 No 81mg Take 1 tablet by mouth in the morning. [facility] carvediloL 3.125 mg tablet 02-26 00:00: 00 Yes [id number] 3.125mg Take 1 tablet by mouth in the morning. [facility] carvediloL 3.125 mg tablet 0 02-26 00:00: 00 Yes [id number] 3.125mg Take 1 tablet by mouth in the morning. [facility] carvediloL 3.125 mg tablet 02-26 00:00: 00 Yes [id number] 3.125mg Take 1 tablet by mouth in the morning. [facility] carvediloL 3.125 mg tablet 02-26 00:00: 00 08-29 00:00 :00 No [id number] 3.125mg Take 1 tablet by mouth in the morning. [facility] carvediloL 3.125 mg tablet 02-26 00:00: 00 08-29 00:00 :00 No [id number] 3.125mg Take 1 tablet by mouth in the morning. [facility] carvediloL 3.125 mg tablet 02-26 00:00: 00 08-29 00:00 :00 No [id number] 3.125mg Take 1 tablet by mouth in the morning. [facility] lisinopriL 2.5 mg tablet 12-18 13:36: 05 12-18 00:00 :00 No lisinopril 2.5 mg tablet [facility] lisinopriL 2.5 mg tablet 12-18 13:36: 05 12-18 00:00 :00 No lisinopril 2.5 mg tablet [facility] aspirin 81 mg chewable tablet 12-18 13:25: 00 Yes 81mg Take 1 tablet by mouth in the morning. [facility] busPIRone 10 mg tablet 12-18 13:25: 00 Yes 10mg Take 1 tablet by mouth in the morning and 1 tablet in the evening. [facility] ferrous sulfate 325 mg (65 mg iron) EC tablet 12-18 13:25: 00 Yes 1 tablet [facility] aspirin 81 mg chewable tablet 12-18 13:25: 00 Yes 81mg Take 1 tablet by mouth in the morning. [facility] busPIRone 10 mg tablet 12-18 13:25: 00 Yes 10mg Take 1 tablet by mouth in the morning and 1 tablet in the evening. [facility] ferrous sulfate 325 mg (65 mg iron) EC tablet 12-18 13:25: 00 Yes 1 tablet [facility] aspirin 81 mg chewable tablet 2022-0 12-18 13:25: 00 Yes 81mg Take 1 tablet by mouth in the morning. [facility] busPIRone 10 mg tablet 2022-0 12-18 13:25: 00 Yes 10mg Take 1 tablet by mouth in the morning and 1 tablet in the evening. [facility] ferrous sulfate 325 mg (65 mg iron) EC tablet 12-18 13:25: 00 Yes 1 tablet [facility] aspirin 81 mg chewable tablet 0 12-18 13:25: 00 Yes 81mg Take 1 tablet by mouth in the morning. [facility] busPIRone 10 mg tablet 0 12-18 13:25: 00 Yes 10mg Take 1 tablet by mouth in the morning and 1 tablet in the evening. [facility] ferrous sulfate 325 mg (65 mg iron) EC tablet 0 12-18 13:25: 00 Yes 1 tablet [facility] busPIRone 10 mg tablet 2022-0 12-18 13:25: 00 Yes 10mg Take 1 tablet by mouth in the morning and 1 tablet in the evening. [facility] ferrous sulfate 325 mg (65 mg iron) EC tablet 0 12-18 13:25: 00 Yes 1 tablet [facility] busPIRone 10 mg tablet 0 12-18 13:25: 00 Yes 10mg Take 1 tablet by mouth in the morning and 1 tablet in the evening. [facility] ferrous sulfate 325 mg (65 mg iron) EC tablet 0 12-18 13:25: 00 Yes 1 tablet [facility] busPIRone 10 mg tablet 2022-0 12-18 13:25: 00 Yes 10mg Take 1 tablet by mouth in the morning and 1 tablet in the evening. [facility] busPIRone 10 mg tablet 2022-0 12-18 13:25: 00 Yes 10mg Take 1 tablet by mouth in the morning and 1 tablet in the evening. [facility] ferrous sulfate 325 mg (65 mg iron) EC tablet 2022-0 13:25: 00 Yes 1 tablet [facility] busPIRone 10 mg tablet 2022-0 - 13:25: 00 Yes 10mg Take 1 tablet by mouth in the morning and 1 tablet in the evening. [facility] ferrous sulfate 325 mg (65 mg iron) EC tablet 2022-0 12-18 13:25: 00 Yes 1 tablet [facility] busPIRone 10 mg tablet 2022-0 12-18 13:25: 00 Yes 10mg Take 1 tablet by mouth in the morning and 1 tablet in the evening. [facility] ferrous sulfate 325 mg (65 mg iron) EC tablet 0 12-18 13:25: 00 Yes 1 tablet [facility] busPIRone 10 mg tablet 2022-0 12-18 13:25: 00 Yes 10mg Take 1 tablet by mouth in the morning and 1 tablet in the evening. [facility] ferrous sulfate 325 mg (65 mg iron) EC tablet 0 12-18 13:25: 00 Yes 1 tablet [facility] busPIRone 10 mg tablet 2022-0 12-18 13:25: 00 Yes 10mg Take 1 tablet by mouth in the morning and 1 tablet in the evening. [facility] mg (65 mg iron) EC tablet 0 12-18 13:25: 00 Yes 1 tablet [facility] busPIRone 10 mg tablet 2022-0 12-18 13:25: 00 Yes 10mg Take 1 tablet by mouth in the morning and 1 tablet in the evening. [facility] ferrous sulfate 325 mg (65 mg iron) EC tablet 2022-0 12-18 13:25: 00 Yes 1 tablet [facility] busPIRone 10 mg tablet 2022-0 - 13:25: 00 Yes 10mg Take 1 tablet by mouth in the morning and 1 tablet in the evening. [facility] ferrous sulfate 325 mg (65 mg iron) EC tablet 2022-0 - 13:25: 00 Yes 1 tablet [facility] busPIRone 10 mg tablet 2022-0 12-18 13:25: 00 Yes 10mg Take 1 tablet by mouth in the morning and 1 tablet in the evening. [facility] ferrous sulfate 325 mg (65 mg iron) EC tablet 12-18 13:25: 00 Yes 1 tablet [facility] busPIRone 10 mg tablet 12-18 13:25: 00 Yes 10mg Take 1 tablet by mouth in the morning and 1 tablet in the evening. [facility] ferrous sulfate 325 mg (65 mg iron) EC tablet 12-18 13:25: 00 Yes 1 tablet [facility] busPIRone 10 mg tablet 12-18 13:25: 00 Yes 10mg Take 1 tablet by mouth in the morning and 1 tablet in the evening. [facility] ferrous sulfate 325 mg (65 mg iron) EC tablet 12-18 13:25: 00 Yes 1 tablet [facility] furosemide 20 mg tablet 12-18 00:00: 00 Yes [id number] 20mg Take 1 tablet by mouth in the morning. [facility] sacubitriL- valsartan 24-26 mg tablet 12-18 00:00: 00 Yes [id number] 1{tbl} Take 1 tablet by mouth in the morning and 1 tablet in the evening. [facility] ezetimibe 10 mg tablet 12-18 00:00: 00 Yes [id number] 10mg Take 1 tablet by mouth in the morning. [facility] carvediloL 3.125 mg tablet 12-18 00:00: 00 Yes [id number] 3.125mg Take 1 tablet by mouth in the morning and 1 tablet in the evening. Take with meals. [facility] clopidogreL 75 mg tablet 12-18 00:00: 00 Yes [id number] TAKE 1 TABLET EVERY DAY [facility] furosemide 20 mg tablet 12-18 00:00: 00 Yes [id number] 20mg Take 1 tablet by mouth in the morning. [facility] sacubitriL- valsartan 24-26 mg tablet 12-18 00:00: 00 Yes [id number] 1{tbl} Take 1 tablet by mouth in the morning and 1 tablet in the evening. [facility] ezetimibe 10 mg tablet 12-18 00:00: 00 Yes [id number] 10mg Take 1 tablet by mouth in the morning. [facility] carvediloL 3.125 mg tablet 12-18 00:00: 00 Yes [id number] 3.125mg Take 1 tablet by mouth in the morning and 1 tablet in the evening. Take with meals. [facility] clopidogreL 75 mg tablet 0 12-18 00:00: 00 Yes [id number] TAKE 1 TABLET EVERY DAY [facility] furosemide 20 mg tablet 12-18 00:00: 00 Yes [id number] 20mg Take 1 tablet by mouth in the morning. [facility] sacubitriL- valsartan 24-26 mg tablet 12-18 00:00: 00 Yes [id number] 1{tbl} Take 1 tablet by mouth in the morning and 1 tablet in the evening. [facility] ezetimibe 10 mg tablet 12-18 00:00: 00 Yes [id number] 10mg Take 1 tablet by mouth in the morning. [facility] carvediloL 3.125 mg tablet 12-18 00:00: 00 Yes [id number] 3.125mg Take 1 tablet by mouth in the morning and 1 tablet in the evening. Take with meals. [facility] clopidogreL 75 mg tablet 2022-0 12-18 00:00: 00 Yes [id number] TAKE 1 TABLET EVERY DAY [facility] furosemide 20 mg tablet 2022-0 12-18 00:00: 00 Yes [id number] 20mg Take 1 tablet by mouth in the morning. [facility] sacubitriL- valsartan 24-26 mg tablet 2022-12-18 00:00: 00 Yes [id number] 1{tbl} Take 1 tablet by mouth in the morning and 1 tablet in the evening. [facility] ezetimibe 10 mg tablet 0 12-18 00:00: 00 Yes [id number] 10mg Take 1 tablet by mouth in the morning. [facility] carvediloL 3.125 mg tablet 12-18 00:00: 00 Yes [id number] 3.125mg Take 1 tablet by mouth in the morning and 1 tablet in the evening. Take with meals. [facility] clopidogreL 75 mg tablet 0 12-18 00:00: 00 Yes [id number] TAKE 1 TABLET EVERY DAY [facility] furosemide 20 mg tablet 0 12-18 00:00: 00 Yes [id number] 20mg Take 1 tablet by mouth in the morning. [facility] sacubitriL- valsartan 24-26 mg tablet 0 12-18 00:00: 00 Yes [id number] 1{tbl} Take 1 tablet by mouth in the morning and 1 tablet in the evening. [facility] ezetimibe 10 mg tablet 0 12-18 00:00: 00 Yes [id number] 10mg Take 1 tablet by mouth in the morning. [facility] clopidogreL 75 mg tablet 2022-0 12-18 00:00: 00 Yes [id number] TAKE 1 TABLET EVERY DAY [facility] furosemide 20 mg tablet 0 12-18 00:00: 00 Yes [id number] 20mg Take 1 tablet by mouth in the morning. [facility] sacubitriL- valsartan 24-26 mg tablet 12-18 00:00: 00 Yes [id number] 1{tbl} Take 1 tablet by mouth in the morning and 1 tablet in the evening. [facility] ezetimibe 10 mg tablet 2022-0 12-18 00:00: 00 Yes [id number] 10mg Take 1 tablet by mouth in the morning. [facility] clopidogreL 75 mg tablet 2022-0 12-18 00:00: 00 Yes [id number] TAKE 1 TABLET EVERY DAY [facility] furosemide 20 mg tablet 2022-0 12-18 00:00: 00 Yes [id number] 20mg Take 1 tablet by mouth in the morning. [facility] sacubitriL- valsartan 24-26 mg tablet 2022-0 3-27 00:00: 00 Yes [id number] 1{tbl} Take 1 tablet by mouth in the morning and 1 tablet in the evening. [facility] ezetimibe 10 mg tablet 2022-0 3-27 00:00: 00 Yes [id number] 10mg Take 1 tablet by mouth in the morning. [facility] clopidogreL 75 mg tablet 2022-0 12-18 00:00: 00 Yes [id number] TAKE 1 TABLET EVERY DAY [facility] sacubitriL- valsartan 24-26 mg tablet 2022-0 -27 00:00: 00 Yes [id number] 1{tbl} Take 1 tablet by mouth in the morning and 1 tablet in the evening. [facility] ezetimibe 10 mg tablet 2022-0 27 00:00: 00 Yes [id number] 10mg Take 1 tablet by mouth in the morning. [facility] sacubitriL- valsartan 24-26 mg tablet 2022-0 27 00:00: 00 Yes [id number] 1{tbl} Take 1 tablet by mouth in the morning and 1 tablet in the evening. [facility] ezetimibe 10 mg tablet 2022-0 27 00:00: 00 Yes [id number] 10mg Take 1 tablet by mouth in the morning. [facility] sacubitriL- valsartan 24-26 mg tablet 2022-0 27 00:00: 00 Yes [id number] 1{tbl} Take 1 tablet by mouth in the morning and 1 tablet in the evening. [facility] ezetimibe 10 mg tablet 3-0 3-27 00:00: 00 Yes [id number] 10mg Take 1 tablet by mouth in the morning. [facility] sacubitriL- valsartan 24-26 mg tablet 3-0 3-27 00:00: 00 Yes [id number] 1{tbl} Take 1 tablet by mouth in the morning and 1 tablet in the evening. [facility] ezetimibe 10 mg tablet 3-0 3-27 00:00: 00 Yes [id number] 10mg Take 1 tablet by mouth in the morning. [facility] sacubitriL- valsartan 24-26 mg tablet 3-0 3-27 00:00: 00 Yes [id number] 1{tbl} Take 1 tablet by mouth in the morning and 1 tablet in the evening. [facility] ezetimibe 10 mg tablet 3-0 3-27 00:00: 00 Yes [id number] 10mg Take 1 tablet by mouth in the morning. [facility] sacubitriL- valsartan 24-26 mg tablet 3-0 3-27 00:00: 00 Yes [id number] 1{tbl} Take 1 tablet by mouth in the morning and 1 tablet in the evening. [facility] ezetimibe 10 mg tablet 3-0 3-27 00:00: 00 Yes [id number] 10mg Take 1 tablet by mouth in the morning. [facility] sacubitriL- valsartan 24-26 mg tablet 2022-0 27 00:00: 00 Yes [id number] 1{tbl} Take 1 tablet by mouth in the morning and 1 tablet in the evening. [facility] ezetimibe 10 mg tablet 3-0 3-27 00:00: 00 Yes [id number] 10mg Take 1 tablet by mouth in the morning. [facility] sacubitriL- valsartan 24-26 mg tablet 3-0 327 00:00: 00 Yes [id number] 1{tbl} Take 1 tablet by mouth in the morning and 1 tablet in the evening. [facility] ezetimibe 10 mg tablet 3-0 3-27 00:00: 00 Yes [id number] 10mg Take 1 tablet by mouth in the morning. [facility] sacubitriL- valsartan 24-26 mg tablet 3-0 3-27 00:00: 00 Yes [id number] 1{tbl} Take 1 tablet by mouth in the morning and 1 tablet in the evening. [facility] ezetimibe 10 mg tablet 0 27 00:00: 00 Yes [id number] 10mg Take 1 tablet by mouth in the morning. [facility] furosemide 20 mg tablet 2022-0 327 00:00: 00 08-29 00:00 :00 No [id number] 20mg Take 1 tablet by mouth in the morning. [facility] clopidogreL 75 mg tablet 2022-0 327 00:00: 00 08-29 00:00 :00 No [id number] TAKE 1 TABLET EVERY DAY [facility] furosemide 20 mg tablet 0 27 00:00: 00 08-29 00:00 :00 No [id number] 20mg Take 1 tablet by mouth in the morning. [facility] clopidogreL 75 mg tablet 2022-0 3 00:00: 00 08-29 00:00 :00 No [id number] TAKE 1 TABLET EVERY DAY [facility] furosemide 20 mg tablet 0 12-18 00:00: 00 08-29 00:00 :00 No [id number] 20mg Take 1 tablet by mouth in the morning. [facility] clopidogreL 75 mg tablet 2022-0 12-18 00:00: 00 08-29 00:00 :00 No [id number] TAKE 1 TABLET EVERY DAY [facility] carvediloL 3.125 mg tablet 0 27 00:00: 00 02-26 00:00 :00 No [id number] 3.125mg Take 1 tablet by mouth in the morning and 1 tablet in the evening. Take with meals. [facility] Zolpidem Tartrate 5 MG Zolpidem Tartrate 5 MG 2022-0 118 00:00: 00 No 1{table t_at_be dtime} Zolpidem Tartrate 5 MG Zolpidem Tartrate 5 MG Zolpidem Tartrate 5 MG 2022-0 1-18 00:00: 00 No 1{table t_at_be dtime} Zolpidem Tartrate 5 MG Zolpidem Tartrate 5 MG Zolpidem Tartrate 5 MG 10-11 00:00: 00 No 1{table t_at_be dtime} Zolpidem Tartrate 5 MG Zolpidem Tartrate 5 MG Zolpidem Tartrate 5 MG 10-11 00:00: 00 No 1{table t_at_be dtime} Zolpidem Tartrate 5 MG aspirin 81 mg chewable tablet 2021-09 08:54: 54 Yes 81mg Take 81 mg by mouth daily. [facility] pantoprazol e 40 mg EC tablet 2021-09 08:54: 54 Yes 40mg Take 40 mg by mouth daily. [facility] citalopram 20 mg tablet 2021-09 08:54: 54 Yes 20mg Take 20 mg by mouth daily. [facility] busPIRone 10 mg tablet 2021-09 08:54: 54 Yes 10mg Take 10 mg by mouth as needed. [facility] albuterol sulfate (PROAIR HFA INHALE) 2021-09 08:54: 54 Yes Inhale. [facility] aspirin 81 mg chewable tablet 2021-09 08:54: 54 Yes 81mg Take 81 mg by mouth daily. [facility] pantoprazol e 40 mg EC tablet 2021-09 08:54: 54 Yes 40mg Take 40 mg by mouth daily. [facility] citalopram 20 mg tablet 2021-09 08:54: 54 Yes 20mg Take 20 mg by mouth daily. [facility] busPIRone 10 mg tablet 2021-09 08:54: 54 Yes 10mg Take 10 mg by mouth as needed. [facility] albuterol sulfate (PROAIR HFA INHALE) 2021-09 08:54: 54 Yes Inhale. [facility] aspirin 81 mg chewable tablet 2021-09 08:54: 54 Yes 81mg Take 81 mg by mouth daily. [facility] pantoprazol e 40 mg EC tablet 2021-09 08:54: 54 Yes 40mg Take 40 mg by mouth daily. [facility] citalopram 20 mg tablet 2021-09 08:54: 54 Yes 20mg Take 20 mg by mouth daily. [facility] busPIRone 10 mg tablet 2021-09 08:54: 54 Yes 10mg Take 10 mg by mouth as needed. [facility] albuterol sulfate (PROAIR HFA INHALE) 2021-09 08:54: 54 Yes Inhale. [facility] sulfaSALAzi ne 500 mg tablet 2021-09 08:54: 54 Yes 2 tablet [facility] lisinopriL 2.5 mg tablet 2021-09 08:54: 54 Yes lisinopril 2.5 mg tablet [facility] meclizine 25 mg tablet 2021-09 08:54: 54 Yes meclizine 25 mg tablet [facility] metroNIDAZO LE 500 mg tablet 2021-09 08:54: 54 Yes metronidaz ole 500 mg tablet [facility] ondansetron 4 mg tablet 2021-09 08:54: 54 Yes ondansetro n HCl 4 mg tablet [facility] ferrous sulfate 325 mg (65 mg iron) EC tablet 2021-09 08:54: 54 Yes 1 tablet [facility] Cholecalcif brenda, Vitamin D3, 25 mcg (1,000 unit) capsule 2021-09 08:54: 54 Yes 1 capsule [facility] calcitONIN, salmon, 200 unit/actuat ion nasal spray 2021-09 08:54: 54 Yes calcitonin (salmon) 200 unit/actua tion nasal spray [facility] budesonide- formoteroL (SYMBICORT) 160-4.5 mcg/actuati on inhaler 2021-09 08:54: 54 Yes 2 puffs [facility] balsalazide 750 mg capsule 2021-09 08:54: 54 Yes balsalazid e 750 mg capsule [facility] aspirin 81 mg chewable tablet 2021-09 08:54: 54 Yes 81mg Take 81 mg by mouth daily. [facility] pantoprazol e 40 mg EC tablet 2021-09 08:54: 54 Yes 40mg Take 40 mg by mouth daily. [facility] citalopram 20 mg tablet 2021-09 08:54: 54 Yes 20mg Take 20 mg by mouth daily. [facility] busPIRone 10 mg tablet 2021-09 08:54: 54 Yes 10mg Take 10 mg by mouth as needed. [facility] albuterol sulfate (PROAIR HFA INHALE) 2021-09 08:54: 54 Yes Inhale. [facility] aspirin 81 mg chewable tablet 2021-09 08:54: 54 Yes 81mg Take 81 mg by mouth daily. [facility] pantoprazol e 40 mg EC tablet 2021-09 08:54: 54 Yes 40mg Take 40 mg by mouth daily. [facility] citalopram 20 mg tablet 2021-09 08:54: 54 Yes 20mg Take 20 mg by mouth daily. [facility] busPIRone 10 mg tablet 2021-09 08:54: 54 Yes 10mg Take 10 mg by mouth as needed. [facility] albuterol sulfate (PROAIR HFA INHALE) 2021-09 08:54: 54 Yes Inhale. [facility] sulfaSALAzi ne 500 mg tablet 2021-09 08:54: 54 Yes 2 tablet [facility] lisinopriL 2.5 mg tablet 2021-09 08:54: 54 Yes lisinopril 2.5 mg tablet [facility] meclizine 25 mg tablet 2021-09 08:54: 54 Yes meclizine 25 mg tablet [facility] metroNIDAZO LE 500 mg tablet 2021-09 08:54: 54 Yes metronidaz ole 500 mg tablet [facility] ondansetron 4 mg tablet 2021-09 08:54: 54 Yes ondansetro n HCl 4 mg tablet [facility] ferrous sulfate 325 mg (65 mg iron) EC tablet 2021-09 08:54: 54 Yes 1 tablet [facility] Cholecalcif brenda, Vitamin D3, 25 mcg (1,000 unit) capsule 2021-09 08:54: 54 Yes 1 capsule [facility] calcitONIN, salmon, 200 unit/actuat ion nasal spray 2021-09 08:54: 54 Yes calcitonin (salmon) 200 unit/actua tion nasal spray [facility] budesonide- formoteroL (SYMBICORT) 160-4.5 mcg/actuati on inhaler 2021-09 08:54: 54 Yes 2 puffs [facility] balsalazide 750 mg capsule 2021-09 08:54: 54 Yes balsalazid e 750 mg capsule [facility] aspirin 81 mg chewable tablet 2021-09 08:54: 54 Yes 81mg Take 81 mg by mouth daily. [facility] pantoprazol e 40 mg EC tablet 2021-09 08:54: 54 Yes 40mg Take 40 mg by mouth daily. [facility] citalopram 20 mg tablet 2021-09 08:54: 54 Yes 20mg Take 20 mg by mouth daily. [facility] busPIRone 10 mg tablet 2021-09 08:54: 54 Yes 10mg Take 10 mg by mouth as needed. [facility] albuterol sulfate (PROAIR HFA INHALE) 2021-09 08:54: 54 Yes Inhale. [facility] sulfaSALAzi ne 500 mg tablet 2021-09 08:54: 54 Yes 2 tablet [facility] lisinopriL 2.5 mg tablet 2021-09 08:54: 54 Yes lisinopril 2.5 mg tablet [facility] meclizine 25 mg tablet 2021-09 08:54: 54 Yes meclizine 25 mg tablet [facility] metroNIDAZO LE 500 mg tablet 2021-09 08:54: 54 Yes metronidaz ole 500 mg tablet [facility] ondansetron 4 mg tablet 2021-09 08:54: 54 Yes ondansetro n HCl 4 mg tablet [facility] ferrous sulfate 325 mg (65 mg iron) EC tablet 2021-09 08:54: 54 Yes 1 tablet [facility] Cholecalcif brenda, Vitamin D3, 25 mcg (1,000 unit) capsule 2021-09 08:54: 54 Yes 1 capsule [facility] calcitONIN, salmon, 200 unit/actuat ion nasal spray 2021-09 08:54: 54 Yes calcitonin (salmon) 200 unit/actua tion nasal spray [facility] budesonide- formoteroL (SYMBICORT) 160-4.5 mcg/actuati on inhaler 2021-09 08:54: 54 Yes 2 puffs [facility] balsalazide 750 mg capsule 2021-09 08:54: 54 Yes balsalazid e 750 mg capsule [facility] aspirin 81 mg chewable tablet 2021-09 08:54: 54 Yes 81mg Take 81 mg by mouth daily. [facility] pantoprazol e 40 mg EC tablet 2021-09 08:54: 54 Yes 40mg Take 40 mg by mouth daily. [facility] citalopram 20 mg tablet 2021-09 08:54: 54 Yes 20mg Take 20 mg by mouth daily. [facility] busPIRone 10 mg tablet 2021-09 08:54: 54 Yes 10mg Take 10 mg by mouth as needed. [facility] albuterol sulfate (PROAIR HFA INHALE) 2021-09 08:54: 54 Yes Inhale. [facility] sulfaSALAzi ne 500 mg tablet 2021-09 08:54: 54 Yes 2 tablet [facility] lisinopriL 2.5 mg tablet 2021-09 08:54: 54 Yes lisinopril 2.5 mg tablet [facility] meclizine 25 mg tablet 2021-09 08:54: 54 Yes meclizine 25 mg tablet [facility] metroNIDAZO LE 500 mg tablet 2021-09 08:54: 54 Yes metronidaz ole 500 mg tablet [facility] ondansetron 4 mg tablet 2021-09 08:54: 54 Yes ondansetro n HCl 4 mg tablet [facility] ferrous sulfate 325 mg (65 mg iron) EC tablet 2021-09 08:54: 54 Yes 1 tablet [facility] Cholecalcif brenda, Vitamin D3, 25 mcg (1,000 unit) capsule 2021-09 08:54: 54 Yes 1 capsule [facility] calcitONIN, salmon, 200 unit/actuat ion nasal spray 2021-09 08:54: 54 Yes calcitonin (salmon) 200 unit/actua tion nasal spray [facility] budesonide- formoteroL (SYMBICORT) 160-4.5 mcg/actuati on inhaler 2021-09 08:54: 54 Yes 2 puffs [facility] balsalazide 750 mg capsule 2021-09 08:54: 54 Yes balsalazid e 750 mg capsule [facility] aspirin 81 mg chewable tablet 2021-09 08:54: 54 Yes 81mg Take 81 mg by mouth daily. [facility] pantoprazol e 40 mg EC tablet 2021-09 08:54: 54 Yes 40mg Take 40 mg by mouth daily. [facility] citalopram 20 mg tablet 2021-09 08:54: 54 Yes 20mg Take 20 mg by mouth daily. [facility] busPIRone 10 mg tablet 2021-09 08:54: 54 Yes 10mg Take 10 mg by mouth as needed. [facility] albuterol sulfate (PROAIR HFA INHALE) 2021-09 08:54: 54 Yes Inhale. [facility] sulfaSALAzi ne 500 mg tablet 2021-09 08:54: 54 Yes 2 tablet [facility] lisinopriL 2.5 mg tablet 2021-09 08:54: 54 Yes lisinopril 2.5 mg tablet [facility] meclizine 25 mg tablet 2021-09 08:54: 54 Yes meclizine 25 mg tablet [facility] metroNIDAZO LE 500 mg tablet 2021-09 08:54: 54 Yes metronidaz ole 500 mg tablet [facility] ondansetron 4 mg tablet 2021-09 08:54: 54 Yes ondansetro n HCl 4 mg tablet [facility] ferrous sulfate 325 mg (65 mg iron) EC tablet 2021-09 08:54: 54 Yes 1 tablet [facility] Cholecalcif brenda, Vitamin D3, 25 mcg (1,000 unit) capsule 2021-09 08:54: 54 Yes 1 capsule [facility] calcitONIN, salmon, 200 unit/actuat ion nasal spray 2021-09 08:54: 54 Yes calcitonin (salmon) 200 unit/actua tion nasal spray [facility] budesonide- formoteroL (SYMBICORT) 160-4.5 mcg/actuati on inhaler 2021-09 08:54: 54 Yes 2 puffs [facility] balsalazide 750 mg capsule 2021-09 08:54: 54 Yes balsalazid e 750 mg capsule [facility] pantoprazol e 40 mg EC tablet 2021-09 08:54: 54 Yes 40mg Take 40 mg by mouth daily. [facility] citalopram 20 mg tablet 2021-09 08:54: 54 Yes 20mg Take 20 mg by mouth daily. [facility] albuterol sulfate (PROAIR HFA INHALE) 2021-09 08:54: 54 Yes Inhale. [facility] sulfaSALAzi ne 500 mg tablet 2021-09 08:54: 54 Yes 2 tablet [facility] meclizine 25 mg tablet 2021-09 08:54: 54 Yes meclizine 25 mg tablet [facility] metroNIDAZO LE 500 mg tablet 2021-09 08:54: 54 Yes metronidaz ole 500 mg tablet [facility] ondansetron 4 mg tablet 2021-09 08:54: 54 Yes ondansetro n HCl 4 mg tablet [facility] Cholecalcif brenda, Vitamin D3, 25 mcg (1,000 unit) capsule 2021-09 08:54: 54 Yes 1 capsule [facility] calcitONIN, salmon, 200 unit/actuat ion nasal spray 2021-09 08:54: 54 Yes calcitonin (salmon) 200 unit/actua tion nasal spray [facility] budesonide- formoteroL (SYMBICORT) 160-4.5 mcg/actuati on inhaler 2021-09 08:54: 54 Yes 2 puffs [facility] balsalazide 750 mg capsule 2021-09 08:54: 54 Yes balsalazid e 750 mg capsule [facility] pantoprazol e 40 mg EC tablet 2021-09 08:54: 54 Yes 40mg Take 40 mg by mouth daily. [facility] citalopram 20 mg tablet 2021-09 08:54: 54 Yes 20mg Take 20 mg by mouth daily. [facility] albuterol sulfate (PROAIR HFA INHALE) 2021-09 08:54: 54 Yes Inhale. [facility] sulfaSALAzi ne 500 mg tablet 2021-09 08:54: 54 Yes 2 tablet [facility] meclizine 25 mg tablet 2021-09 08:54: 54 Yes meclizine 25 mg tablet [facility] metroNIDAZO LE 500 mg tablet 2021-09 08:54: 54 Yes metronidaz ole 500 mg tablet [facility] ondansetron 4 mg tablet 2021-09 08:54: 54 Yes ondansetro n HCl 4 mg tablet [facility] Cholecalcif brenda, Vitamin D3, 25 mcg (1,000 unit) capsule 2021-09 08:54: 54 Yes 1 capsule [facility] calcitONIN, salmon, 200 unit/actuat ion nasal spray 2021-09 08:54: 54 Yes calcitonin (salmon) 200 unit/actua tion nasal spray [facility] budesonide- formoteroL (SYMBICORT) 160-4.5 mcg/actuati on inhaler 2021-09 08:54: 54 Yes 2 puffs [facility] balsalazide 750 mg capsule 2021-09 08:54: 54 Yes balsalazid e 750 mg capsule [facility] pantoprazol e 40 mg EC tablet 2021-09 08:54: 54 Yes 40mg Take 40 mg by mouth daily. [facility] citalopram 20 mg tablet 2021-09 08:54: 54 Yes 20mg Take 20 mg by mouth daily. [facility] albuterol sulfate (PROAIR HFA INHALE) 2021-09 08:54: 54 Yes Inhale. [facility] sulfaSALAzi ne 500 mg tablet 2021-09 08:54: 54 Yes 2 tablet [facility] meclizine 25 mg tablet 2021-09 08:54: 54 Yes meclizine 25 mg tablet [facility] metroNIDAZO LE 500 mg tablet 2021-09 08:54: 54 Yes metronidaz ole 500 mg tablet [facility] ondansetron 4 mg tablet 2021-09 08:54: 54 Yes ondansetro n HCl 4 mg tablet [facility] Cholecalcif brenda, Vitamin D3, 25 mcg (1,000 unit) capsule 2021-09 08:54: 54 Yes 1 capsule [facility] calcitONIN, salmon, 200 unit/actuat ion nasal spray 2021-09 08:54: 54 Yes calcitonin (salmon) 200 unit/actua tion nasal spray [facility] budesonide- formoteroL (SYMBICORT) 160-4.5 mcg/actuati on inhaler 2021-09 08:54: 54 Yes 2 puffs [facility] balsalazide 750 mg capsule 2021-09 08:54: 54 Yes balsalazid e 750 mg capsule [facility] pantoprazol e 40 mg EC tablet 2021-09 08:54: 54 Yes 40mg Take 40 mg by mouth daily. [facility] citalopram 20 mg tablet 2021-09 08:54: 54 Yes 20mg Take 20 mg by mouth daily. [facility] albuterol sulfate (PROAIR HFA INHALE) 2021-09 08:54: 54 Yes Inhale. [facility] sulfaSALAzi ne 500 mg tablet 2021-09 08:54: 54 Yes 2 tablet [facility] meclizine 25 mg tablet 2021-09 08:54: 54 Yes meclizine 25 mg tablet [facility] metroNIDAZO LE 500 mg tablet 2021-09 08:54: 54 Yes metronidaz ole 500 mg tablet [facility] ondansetron 4 mg tablet 2021-09 08:54: 54 Yes ondansetro n HCl 4 mg tablet [facility] Cholecalcif brenda, Vitamin D3, 25 mcg (1,000 unit) capsule 2021-09 08:54: 54 Yes 1 capsule [facility] calcitONIN, salmon, 200 unit/actuat ion nasal spray 2021-09 08:54: 54 Yes calcitonin (salmon) 200 unit/actua tion nasal spray [facility] budesonide- formoteroL (SYMBICORT) 160-4.5 mcg/actuati on inhaler 2021-09 08:54: 54 Yes 2 puffs [facility] balsalazide 750 mg capsule 2021-09 08:54: 54 Yes balsalazid e 750 mg capsule [facility] pantoprazol e 40 mg EC tablet 2021-09 08:54: 54 Yes 40mg Take 40 mg by mouth daily. [facility] citalopram 20 mg tablet 2021-09 08:54: 54 Yes 20mg Take 20 mg by mouth daily. [facility] albuterol sulfate (PROAIR HFA INHALE) 2021-09 08:54: 54 Yes Inhale. [facility] sulfaSALAzi ne 500 mg tablet 2021-09 08:54: 54 Yes 2 tablet [facility] meclizine 25 mg tablet 2021-09 08:54: 54 Yes meclizine 25 mg tablet [facility] metroNIDAZO LE 500 mg tablet 2021-09 08:54: 54 Yes metronidaz ole 500 mg tablet [facility] ondansetron 4 mg tablet 2021-09 08:54: 54 Yes ondansetro n HCl 4 mg tablet [facility] Cholecalcif brenda, Vitamin D3, 25 mcg (1,000 unit) capsule 2021-09 08:54: 54 Yes 1 capsule [facility] calcitONIN, salmon, 200 unit/actuat ion nasal spray 2021-09 08:54: 54 Yes calcitonin (salmon) 200 unit/actua tion nasal spray [facility] budesonide- formoteroL (SYMBICORT) 160-4.5 mcg/actuati on inhaler 2021-09 08:54: 54 Yes 2 puffs [facility] balsalazide 750 mg capsule 2021-09 08:54: 54 Yes balsalazid e 750 mg capsule [facility] pantoprazol e 40 mg EC tablet 2021-09 08:54: 54 Yes 40mg Take 40 mg by mouth daily. [facility] citalopram 20 mg tablet 2021-09 08:54: 54 Yes 20mg Take 20 mg by mouth daily. [facility] albuterol sulfate (PROAIR HFA INHALE) 2021-09 08:54: 54 Yes Inhale. [facility] sulfaSALAzi ne 500 mg tablet 2021-09 08:54: 54 Yes 2 tablet [facility] meclizine 25 mg tablet 2021-09 08:54: 54 Yes meclizine 25 mg tablet [facility] metroNIDAZO LE 500 mg tablet 2021-09 08:54: 54 Yes metronidaz ole 500 mg tablet [facility] ondansetron 4 mg tablet 2021-09 08:54: 54 Yes ondansetro n HCl 4 mg tablet [facility] Cholecalcif brenda, Vitamin D3, 25 mcg (1,000 unit) capsule 2021-09 08:54: 54 Yes 1 capsule [facility] calcitONIN, salmon, 200 unit/actuat ion nasal spray 2021-09 08:54: 54 Yes calcitonin (salmon) 200 unit/actua tion nasal spray [facility] budesonide- formoteroL (SYMBICORT) 160-4.5 mcg/actuati on inhaler 2021-09 08:54: 54 Yes 2 puffs [facility] balsalazide 750 mg capsule 2021-09 08:54: 54 Yes balsalazid e 750 mg capsule [facility] pantoprazol e 40 mg EC tablet 2021-09 08:54: 54 Yes 40mg Take 40 mg by mouth daily. [facility] citalopram 20 mg tablet 2021-09 08:54: 54 Yes 20mg Take 20 mg by mouth daily. [facility] albuterol sulfate (PROAIR HFA INHALE) 2021-09 08:54: 54 Yes Inhale. [facility] pantoprazol e 40 mg EC tablet 2021-09 08:54: 54 Yes 40mg Take 40 mg by mouth daily. [facility] citalopram 20 mg tablet 2021-09 08:54: 54 Yes 20mg Take 20 mg by mouth daily. [facility] albuterol sulfate (PROAIR HFA INHALE) 2021-09 08:54: 54 Yes Inhale. [facility] sulfaSALAzi ne 500 mg tablet 2021-09 08:54: 54 Yes 2 tablet [facility] meclizine 25 mg tablet 2021-09 08:54: 54 Yes meclizine 25 mg tablet [facility] metroNIDAZO LE 500 mg tablet 2021-09 08:54: 54 Yes metronidaz ole 500 mg tablet [facility] ondansetron 4 mg tablet 2021-09 08:54: 54 Yes ondansetro n HCl 4 mg tablet [facility] Cholecalcif brenda, Vitamin D3, 25 mcg (1,000 unit) capsule 2021-09 08:54: 54 Yes 1 capsule [facility] calcitONIN, salmon, 200 unit/actuat ion nasal spray 2021-09 08:54: 54 Yes calcitonin (salmon) 200 unit/actua tion nasal spray [facility] budesonide- formoteroL (SYMBICORT) 160-4.5 mcg/actuati on inhaler 2021-09 08:54: 54 Yes 2 puffs [facility] balsalazide 750 mg capsule 2021-09 08:54: 54 Yes balsalazid e 750 mg capsule [facility] albuterol sulfate (PROAIR HFA INHALE) 2021-09 08:54: 54 Yes Inhale. [facility] albuterol sulfate (PROAIR HFA INHALE) 2021-09 08:54: 54 Yes Inhale. [facility] albuterol sulfate (PROAIR HFA INHALE) 2021-09 08:54: 54 Yes Inhale. [facility] albuterol sulfate (PROAIR HFA INHALE) 2021-09 08:54: 54 Yes Inhale. [facility] albuterol sulfate (PROAIR HFA INHALE) 2021-09 2 08:54: 54 Yes Inhale. [facility] albuterol sulfate (PROAIR HFA INHALE) 2021-09 08:54: 54 Yes Inhale. [facility] albuterol sulfate (PROAIR HFA INHALE) 2021-09 08:54: 54 Yes Inhale. [facility] albuterol sulfate (PROAIR HFA INHALE) 2021-09 08:54: 54 Yes Inhale. [facility] albuterol sulfate (PROAIR HFA INHALE) 2021-09 08:54: 54 Yes Inhale. [facility] ciprofloxac in HCl 500 mg tablet 2021-0 -16 00:00: 00 Yes [facility] ciprofloxac in HCl 500 mg tablet 2021-0 9-16 00:00: 00 Yes [facility] ciprofloxac in HCl 500 mg tablet 2021-0 9-16 00:00: 00 Yes [facility] ciprofloxac in HCl 500 mg tablet 2-0 9-16 00:00: 00 Yes [facility] ciprofloxac in HCl 500 mg tablet 2021-0 -16 00:00: 00 Yes [facility] ciprofloxac in HCl 500 mg tablet 2-0 9-16 00:00: 00 Yes [facility] ciprofloxac in HCl 500 mg tablet 2-0 9-16 00:00: 00 Yes [facility] ciprofloxac in HCl 500 mg tablet 2-0 9-16 00:00: 00 Yes [facility] ciprofloxac in HCl 500 mg tablet 2-0 9-16 00:00: 00 Yes [facility] ciprofloxac in HCl 500 mg tablet 2-0 9-16 00:00: 00 Yes [facility] ciprofloxac in HCl 500 mg tablet 2-0 9-16 00:00: 00 Yes [facility] ciprofloxac in HCl 500 mg tablet 2-0 -16 00:00: 00 Yes [facility] ciprofloxac in HCl 500 mg tablet 2-0 -16 00:00: 00 Yes [facility] ciprofloxac in HCl 500 mg tablet 2-0 -16 00:00: 00 Yes [facility] ciprofloxac in HCl 500 mg tablet 2-0 -16 00:00: 00 Yes [facility] ciprofloxac in HCl 500 mg tablet 2-0 -16 00:00: 00 Yes [facility] ciprofloxac in HCl 500 mg tablet 2-0 -16 00:00: 00 Yes [facility] ciprofloxac in HCl 500 mg tablet 2-0 -16 00:00: 00 Yes [facility] ciprofloxac in HCl 500 mg tablet 2-0 -16 00:00: 00 Yes [facility] ciprofloxac in HCl 500 mg tablet 2-0 -16 00:00: 00 Yes [facility] ciprofloxac in HCl 500 mg tablet 2-0 -16 00:00: 00 Yes [facility] zolpidem 5 mg tablet 2-0 -14 00:00: 00 Yes [facility] zolpidem 5 mg tablet 2-0 -14 00:00: 00 Yes [facility] zolpidem 5 mg tablet 2-0 -14 00:00: 00 Yes [facility] zolpidem 5 mg tablet 2-0 -14 00:00: 00 Yes [facility] zolpidem 5 mg tablet 2-0 -14 00:00: 00 Yes [facility] zolpidem 5 mg tablet 2-0 -14 00:00: 00 Yes [facility] zolpidem 5 mg tablet 2-0 -14 00:00: 00 Yes [facility] zolpidem 5 mg tablet 2-0 -14 00:00: 00 Yes [facility] zolpidem 5 mg tablet 2-0 9-14 00:00: 00 Yes [facility] zolpidem 5 mg tablet 2-0 -14 00:00: 00 Yes [facility] zolpidem 5 mg tablet 2-0 -14 00:00: 00 Yes [facility] zolpidem 5 mg tablet 2-0 -14 00:00: 00 Yes [facility] zolpidem 5 mg tablet 2-0 -14 00:00: 00 Yes [facility] zolpidem 5 mg tablet 2-0 -14 00:00: 00 Yes [facility] zolpidem 5 mg tablet 2-0 -14 00:00: 00 Yes [facility] zolpidem 5 mg tablet 2-0 -14 00:00: 00 Yes [facility] zolpidem 5 mg tablet 2-0 -14 00:00: 00 Yes [facility] zolpidem 5 mg tablet 2-0 -14 00:00: 00 Yes [facility] zolpidem 5 mg tablet 2-0 -14 00:00: 00 Yes [facility] zolpidem 5 mg tablet 2-0 -14 00:00: 00 Yes [facility] zolpidem 5 mg tablet 2-0 -14 00:00: 00 Yes [facility] Zolpidem Tartrate 5 MG Zolpidem Tartrate 5 MG 2-0 -14 00:00: 00 No 1{table t_at_be dtime} Zolpidem Tartrate 5 MG Zolpidem Tartrate 5 MG Zolpidem Tartrate 5 MG 2022-0 -14 00:00: 00 No 1{table t_at_be dtime} Zolpidem Tartrate 5 MG Zolpidem Tartrate 5 MG Zolpidem Tartrate 5 MG 2-0 -14 00:00: 00 No 1{table t_at_be dtime} Zolpidem Tartrate 5 MG Zolpidem Tartrate 5 MG Zolpidem Tartrate 5 MG 2-0 9-14 00:00: 00 No 1{table t_at_be dtime} Zolpidem Tartrate 5 MG Zolpidem Tartrate 5 MG Zolpidem Tartrate 5 MG 2022-0 9-14 00:00: 00 No 1{table t_at_be dtime} Zolpidem Tartrate 5 MG carvediloL 3.125 mg tablet 2021-0 8-25 00:00: 00 Yes [id number] 3.125mg Take 1 tablet by mouth in the morning and 1 tablet in the evening. Take with meals. [facility] carvediloL 3.125 mg tablet 2021-0 05-18 00:00: 00 Yes [id number] 3.125mg Take 1 tablet by mouth in the morning and 1 tablet in the evening. Take with meals. [facility] clopidogreL 75 mg tablet 2021-0 25 00:00: 00 Yes [id number] TAKE 1 TABLET EVERY DAY [facility] carvediloL 3.125 mg tablet 2021-0 05-18 00:00: 00 Yes [id number] 3.125mg Take 1 tablet by mouth in the morning and 1 tablet in the evening. Take with meals. [facility] clopidogreL 75 mg tablet 2021-0 05-18 00:00: 00 Yes [id number] TAKE 1 TABLET EVERY DAY [facility] carvediloL 3.125 mg tablet 2021-0 825 00:00: 00 Yes [id number] 3.125mg Take 1 tablet by mouth in the morning and 1 tablet in the evening. Take with meals. [facility] clopidogreL 75 mg tablet 2021-0 825 00:00: 00 Yes [id number] TAKE 1 TABLET EVERY DAY [facility] carvediloL 3.125 mg tablet 2021-0 825 00:00: 00 Yes [id number] 3.125mg Take 1 tablet by mouth in the morning and 1 tablet in the evening. Take with meals. [facility] clopidogreL 75 mg tablet 2-0 25 00:00: 00 Yes [id number] TAKE 1 TABLET EVERY DAY [facility] carvediloL 3.125 mg tablet 2021-0 05-18 00:00: 00 Yes [id number] 3.125mg Take 1 tablet by mouth in the morning and 1 tablet in the evening. Take with meals. [facility] clopidogreL 75 mg tablet 2021-0 05-18 00:00: 00 Yes [id number] TAKE 1 TABLET EVERY DAY [facility] carvediloL 3.125 mg tablet 2021-0 05-18 00:00: 00 Yes [id number] 3.125mg Take 1 tablet by mouth in the morning and 1 tablet in the evening. Take with meals. [facility] clopidogreL 75 mg tablet 2021-0 05-18 00:00: 00 Yes [id number] TAKE 1 TABLET EVERY DAY [facility] carvediloL 3.125 mg tablet 2021-0 05-18 00:00: 00 Yes [id number] 3.125mg Take 1 tablet by mouth in the morning and 1 tablet in the evening. Take with meals. [facility] clopidogreL 75 mg tablet 2021-0 05-18 00:00: 00 Yes [id number] TAKE 1 TABLET EVERY DAY [facility] carvediloL 3.125 mg tablet 2021-0 05-18 00:00: 00 Yes [id number] 3.125mg Take 1 tablet by mouth in the morning and 1 tablet in the evening. Take with meals. [facility] clopidogreL 75 mg tablet 2021-0 05-18 00:00: 00 Yes [id number] TAKE 1 TABLET EVERY DAY [facility] carvediloL 3.125 mg tablet 2021-0 05-18 00:00: 00 Yes [id number] 3.125mg Take 1 tablet by mouth in the morning and 1 tablet in the evening. Take with meals. [facility] clopidogreL 75 mg tablet 2021-0 05-18 00:00: 00 Yes [id number] TAKE 1 TABLET EVERY DAY [facility] carvediloL 3.125 mg tablet 2-0 05-18 00:00: 00 Yes [id number] 3.125mg Take 1 tablet by mouth in the morning and 1 tablet in the evening. Take with meals. [facility] clopidogreL 75 mg tablet 2021-0 25 00:00: 00 Yes [id number] TAKE 1 TABLET EVERY DAY [facility] carvediloL 3.125 mg tablet 2021-0 8 00:00: 00 12-18 00:00 :00 No [id number] 3.125mg Take 1 tablet by mouth in the morning and 1 tablet in the evening. Take with meals. [facility] clopidogreL 75 mg tablet 2021-0 05-18 00:00: 00 12-18 00:00 :00 No [id number] TAKE 1 TABLET EVERY DAY [facility] carvediloL 3.125 mg tablet 2021-0 05-18 00:00: 00 12-18 00:00 :00 No [id number] 3.125mg Take 1 tablet by mouth in the morning and 1 tablet in the evening. Take with meals. [facility] clopidogreL 75 mg tablet 2021-0 05-18 00:00: 00 12-18 00:00 :00 No [id number] TAKE 1 TABLET EVERY DAY [facility] aspirin 81 mg chewable tablet 2-0 8-16 14:09: 02 Yes 81mg Take 81 mg by mouth daily. [facility] aspirin 81 mg chewable tablet 2-0 8-16 14:09: 02 Yes 81mg Take 81 mg by mouth daily. [facility] aspirin 81 mg chewable tablet 2-0 8-16 14:09: 02 Yes 81mg Take 81 mg by mouth daily. [facility] aspirin 81 mg chewable tablet 2-0 8-16 14:09: 02 Yes 81mg Take 81 mg by mouth daily. [facility] aspirin 81 mg chewable tablet 2-0 8-16 14:09: 02 Yes 81mg Take 81 mg by mouth daily. [facility] aspirin 81 mg chewable tablet 2-0 8-16 14:09: 02 Yes 81mg Take 81 mg by mouth daily. [facility] aspirin 81 mg chewable tablet 2-0 8-16 14:09: 02 Yes 81mg Take 81 mg by mouth daily. [facility] sacubitriL- valsartan (ENTRESTO) 49-51 mg tablet 04-18 00:00: 00 Yes [id number] 1{tbl} Take 1 tablet by mouth in the morning and 1 tablet in the evening. [facility] sacubitriL- valsartan (ENTRESTO) 49-51 mg tablet 04-18 00:00: 00 Yes [id number] 1{tbl} Take 1 tablet by mouth in the morning and 1 tablet in the evening. [facility] sacubitriL- valsartan (ENTRESTO) 49-51 mg tablet 04-18 00:00: 00 Yes [id number] 1{tbl} Take 1 tablet by mouth in the morning and 1 tablet in the evening. [facility] sacubitriL- valsartan (ENTRESTO) 49-51 mg tablet 04-18 00:00: 00 Yes [id number] 1{tbl} Take 1 tablet by mouth in the morning and 1 tablet in the evening. [facility] sacubitriL- valsartan (ENTRESTO) 49-51 mg tablet 04-18 00:00: 00 Yes [id number] 1{tbl} Take 1 tablet by mouth in the morning and 1 tablet in the evening. [facility] sacubitriL- valsartan (ENTRESTO) 49-51 mg tablet 04-18 00:00: 00 Yes [id number] 1{tbl} Take 1 tablet by mouth in the morning and 1 tablet in the evening. [facility] sacubitriL- valsartan (ENTRESTO) 49-51 mg tablet 04-18 00:00: 00 Yes [id number] 1{tbl} Take 1 tablet by mouth in the morning and 1 tablet in the evening. [facility] sacubitriL- valsartan (ENTRESTO) 49-51 mg tablet 04-18 00:00: 00 Yes [id number] 1{tbl} Take 1 tablet by mouth in the morning and 1 tablet in the evening. [facility] sacubitriL- valsartan (ENTRESTO) 49-51 mg tablet 04-18 00:00: 00 Yes [id number] 1{tbl} Take 1 tablet by mouth in the morning and 1 tablet in the evening. [facility] sacubitriL- valsartan (ENTRESTO) 49-51 mg tablet 04-18 00:00: 00 Yes [id number] 1{tbl} Take 1 tablet by mouth in the morning and 1 tablet in the evening. [facility] sacubitriL- valsartan (ENTRESTO) 49-51 mg tablet 04-18 00:00: 00 Yes [id number] 1{tbl} Take 1 tablet by mouth in the morning and 1 tablet in the evening. [facility] sacubitriL- valsartan (ENTRESTO) 49-51 mg tablet 04-18 00:00: 00 Yes [id number] 1{tbl} Take 1 tablet by mouth in the morning and 1 tablet in the evening. [facility] sacubitriL- valsartan (ENTRESTO) 49-51 mg tablet 04-18 00:00: 00 Yes [id number] 1{tbl} Take 1 tablet by mouth in the morning and 1 tablet in the evening. [facility] sacubitriL- valsartan (ENTRESTO) 49-51 mg tablet 04-18 00:00: 00 Yes [id number] 1{tbl} Take 1 tablet by mouth in the morning and 1 tablet in the evening. [facility] sacubitriL- valsartan (ENTRESTO) 49-51 mg tablet 04-18 00:00: 00 Yes [id number] 1{tbl} Take 1 tablet by mouth in the morning and 1 tablet in the evening. [facility] sacubitriL- valsartan (ENTRESTO) 49-51 mg tablet 04-18 00:00: 00 12-18 00:00 :00 No [id number] 1{tbl} Take 1 tablet by mouth in the morning and 1 tablet in the evening. [facility] sacubitriL- valsartan (ENTRESTO) 49-51 mg tablet 04-18 00:00: 00 12-18 00:00 :00 No [id number] 1{tbl} Take 1 tablet by mouth in the morning and 1 tablet in the evening. [facility] clopidogreL 75 mg tablet 03-24 00:00: 00 Yes [id number] TAKE 1 TABLET EVERY DAY [facility] clopidogreL 75 mg tablet 03-24 00:00: 00 Yes [id number] TAKE 1 TABLET EVERY DAY [facility] clopidogreL 75 mg tablet 03-24 00:00: 00 05-18 00:00 :00 No [id number] TAKE 1 TABLET EVERY DAY [facility] Azithromyci n 250 MG Azithromyci n 250 MG 12-06 00:00: 00 12-11 00:00 :00 No QD Azithromyc in 250 MG methylPREDN ISolone 4 MG methylPREDN ISolone 4 MG 3- 00:00: 00 12-06 00:00 :00 No QD methylPRED NISolone 4 MG methylPREDN ISolone 4 MG methylPREDN ISolone 4 MG 3- 00:00: 00 12-06 00:00 :00 No QD methylPRED NISolone 4 MG Azithromyci n 250 MG Azithromyci n 250 MG 1-12 00:00: 00 10-10 00:00 :00 No QD Azithromyc in 250 MG Azithromyci n 250 MG Azithromyci n 250 MG 1-12 00:00: 00 10-10 00:00 :00 No QD Azithromyc in 250 MG CARVEDILOL 3.125 mg tablet 1-05 00:00: 00 Yes [id number] TAKE 1 TABLET TWICE DAILY WITH MEALS [facility] CARVEDILOL 3.125 mg tablet 09-28 00:00: 00 05-18 00:00 :00 No [id number] TAKE 1 TABLET TWICE DAILY WITH MEALS [facility] pantoprazol e 40 mg EC tablet 2020-09 14:19: 47 Yes 40mg Take 40 mg by mouth daily. [facility] citalopram 20 mg tablet 2020-09 14:19: 47 Yes 20mg Take 20 mg by mouth daily. [facility] busPIRone 10 mg tablet 2020-09 14:19: 47 Yes 10mg Take 10 mg by mouth as needed. [facility] albuterol sulfate (PROAIR HFA INHALE) 2020-09 14:19: 47 Yes Inhale. [facility] pantoprazol e 40 mg EC tablet 2020-09 14:19: 47 Yes 40mg Take 40 mg by mouth daily. [facility] citalopram 20 mg tablet 2020-09 14:19: 47 Yes 20mg Take 20 mg by mouth daily. [facility] busPIRone 10 mg tablet 2020-09 14:19: 47 Yes 10mg Take 10 mg by mouth as needed. [facility] albuterol sulfate (PROAIR HFA INHALE) 2020-09 14:19: 47 Yes Inhale. [facility] pantoprazol e 40 mg EC tablet 2020-09 14:19: 47 Yes 40mg Take 40 mg by mouth daily. [facility] citalopram 20 mg tablet 2020-09 14:19: 47 Yes 20mg Take 20 mg by mouth daily. [facility] busPIRone 10 mg tablet 2020-09 14:19: 47 Yes 10mg Take 10 mg by mouth as needed. [facility] albuterol sulfate (PROAIR HFA INHALE) 2020-09 14:19: 47 Yes Inhale. [facility] pantoprazol e 40 mg EC tablet 2020-09 14:19: 47 Yes 40mg Take 40 mg by mouth daily. [facility] citalopram 20 mg tablet 2020-09 14:19: 47 Yes 20mg Take 20 mg by mouth daily. [facility] busPIRone 10 mg tablet 2020-09 14:19: 47 Yes 10mg Take 10 mg by mouth as needed. [facility] albuterol sulfate (PROAIR HFA INHALE) 2020-09 14:19: 47 Yes Inhale. [facility] pantoprazol e 40 mg EC tablet 2020-09 14:19: 47 Yes 40mg Take 40 mg by mouth daily. [facility] citalopram 20 mg tablet 2020-09 14:19: 47 Yes 20mg Take 20 mg by mouth daily. [facility] busPIRone 10 mg tablet 2020-09 14:19: 47 Yes 10mg Take 10 mg by mouth as needed. [facility] albuterol sulfate (PROAIR HFA INHALE) 2020-09 14:19: 47 Yes Inhale. [facility] pantoprazol e 40 mg EC tablet 2020-09 14:19: 47 Yes 40mg Take 40 mg by mouth daily. [facility] citalopram 20 mg tablet 2020-09 14:19: 47 Yes 20mg Take 20 mg by mouth daily. [facility] busPIRone 10 mg tablet 2020-09 14:19: 47 Yes 10mg Take 10 mg by mouth as needed. [facility] albuterol sulfate (PROAIR HFA INHALE) 2020-09 14:19: 47 Yes Inhale. [facility] pantoprazol e 40 mg EC tablet 2020-09 14:19: 47 Yes 40mg Take 40 mg by mouth daily. [facility] citalopram 20 mg tablet 2020-09 14:19: 47 Yes 20mg Take 20 mg by mouth daily. [facility] busPIRone 10 mg tablet 2020-09 14:19: 47 Yes 10mg Take 10 mg by mouth as needed. [facility] albuterol sulfate (PROAIR HFA INHALE) 2020-09 14:19: 47 Yes Inhale. [facility] acetaminoph en-codeine (TYLENOL-CO DEINE #3) 300-30 mg tablet 2020-09 00:00: 00 Yes [id number] 1{tbl} Take 1 tablet by mouth every 6 (six) hours as needed for Pain (scale 4-6) or Pain (scale 7-10) for up to 12 doses. Indication s: acute pain, s-p generator change out [facility] acetaminoph en-codeine (TYLENOL-CO DEINE #3) 300-30 mg tablet 2020-09 00:00: 00 Yes [id number] 1{tbl} Take 1 tablet by mouth every 6 (six) hours as needed for Pain (scale 4-6) or Pain (scale 7-10) for up to 12 doses. Indication s: acute pain, s-p generator change out [facility] acetaminoph en-codeine (TYLENOL-CO DEINE #3) 300-30 mg tablet 2020-09 00:00: 00 Yes [id number] 1{tbl} Take 1 tablet by mouth every 6 (six) hours as needed for Pain (scale 4-6) or Pain (scale 7-10) for up to 12 doses. Indication s: acute pain, s-p generator change out [facility] acetaminoph en-codeine (TYLENOL-CO DEINE #3) 300-30 mg tablet 2020-09 00:00: 00 Yes [id number] 1{tbl} Take 1 tablet by mouth every 6 (six) hours as needed for Pain (scale 4-6) or Pain (scale 7-10) for up to 12 doses. Indication s: acute pain, s-p generator change out [facility] acetaminoph en-codeine (TYLENOL-CO DEINE #3) 300-30 mg tablet 2020-09 00:00: 00 Yes [id number] 1{tbl} Take 1 tablet by mouth every 6 (six) hours as needed for Pain (scale 4-6) or Pain (scale 7-10) for up to 12 doses. Indication s: acute pain, s-p generator change out [facility] acetaminoph en-codeine (TYLENOL-CO DEINE #3) 300-30 mg tablet 2020-09 00:00: 00 Yes [id number] 1{tbl} Take 1 tablet by mouth every 6 (six) hours as needed for Pain (scale 4-6) or Pain (scale 7-10) for up to 12 doses. Indication s: acute pain, s-p generator change out [facility] acetaminoph en-codeine (TYLENOL-CO DEINE #3) 300-30 mg tablet 2020-09 00:00: 00 Yes [id number] 1{tbl} Take 1 tablet by mouth every 6 (six) hours as needed for Pain (scale 4-6) or Pain (scale 7-10) for up to 12 doses. Indication s: acute pain, s-p generator change out [facility] acetaminoph en-codeine (TYLENOL-CO DEINE #3) 300-30 mg tablet 2020-09 00:00: 00 Yes [id number] 1{tbl} Take 1 tablet by mouth every 6 (six) hours as needed for Pain (scale 4-6) or Pain (scale 7-10) for up to 12 doses. Indication s: acute pain, s-p generator change out [facility] acetaminoph en-codeine (TYLENOL-CO DEINE #3) 300-30 mg tablet 2020-09 00:00: 00 Yes [id number] 1{tbl} Take 1 tablet by mouth every 6 (six) hours as needed for Pain (scale 4-6) or Pain (scale 7-10) for up to 12 doses. Indication s: acute pain, s-p generator change out [facility] acetaminoph en-codeine (TYLENOL-CO DEINE #3) 300-30 mg tablet 2020-09 00:00: 00 Yes [id number] 1{tbl} Take 1 tablet by mouth every 6 (six) hours as needed for Pain (scale 4-6) or Pain (scale 7-10) for up to 12 doses. Indication s: acute pain, s-p generator change out [facility] acetaminoph en-codeine (TYLENOL-CO DEINE #3) 300-30 mg tablet 2020-09 00:00: 00 Yes [id number] 1{tbl} Take 1 tablet by mouth every 6 (six) hours as needed for Pain (scale 4-6) or Pain (scale 7-10) for up to 12 doses. Indication s: acute pain, s-p generator change out [facility] acetaminoph en-codeine (TYLENOL-CO DEINE #3) 300-30 mg tablet 2020-09 00:00: 00 Yes [id number] 1{tbl} Take 1 tablet by mouth every 6 (six) hours as needed for Pain (scale 4-6) or Pain (scale 7-10) for up to 12 doses. Indication s: acute pain, s-p generator change out [facility] acetaminoph en-codeine (TYLENOL-CO DEINE #3) 300-30 mg tablet 2020-09 00:00: 00 Yes [id number] 1{tbl} Take 1 tablet by mouth every 6 (six) hours as needed for Pain (scale 4-6) or Pain (scale 7-10) for up to 12 doses. Indication s: acute pain, s-p generator change out [facility] acetaminoph en-codeine (TYLENOL-CO DEINE #3) 300-30 mg tablet 2020-09 00:00: 00 Yes [id number] 1{tbl} Take 1 tablet by mouth every 6 (six) hours as needed for Pain (scale 4-6) or Pain (scale 7-10) for up to 12 doses. Indication s: acute pain, s-p generator change out [facility] acetaminoph en-codeine (TYLENOL-CO DEINE #3) 300-30 mg tablet 2020-09 00:00: 00 Yes [id number] 1{tbl} Take 1 tablet by mouth every 6 (six) hours as needed for Pain (scale 4-6) or Pain (scale 7-10) for up to 12 doses. Indication s: acute pain, s-p generator change out [facility] acetaminoph en-codeine (TYLENOL-CO DEINE #3) 300-30 mg tablet 2020-09 00:00: 00 Yes [id number] 1{tbl} Take 1 tablet by mouth every 6 (six) hours as needed for Pain (scale 4-6) or Pain (scale 7-10) for up to 12 doses. Indication s: acute pain, s-p generator change out [facility] acetaminoph en-codeine (TYLENOL-CO DEINE #3) 300-30 mg tablet 2020-09 00:00: 00 Yes [id number] 1{tbl} Take 1 tablet by mouth every 6 (six) hours as needed for Pain (scale 4-6) or Pain (scale 7-10) for up to 12 doses. Indication s: acute pain, s-p generator change out [facility] acetaminoph en-codeine (TYLENOL-CO DEINE #3) 300-30 mg tablet 2020-09 00:00: 00 Yes [id number] 1{tbl} Take 1 tablet by mouth every 6 (six) hours as needed for Pain (scale 4-6) or Pain (scale 7-10) for up to 12 doses. Indication s: acute pain, s-p generator change out [facility] acetaminoph en-codeine (TYLENOL-CO DEINE #3) 300-30 mg tablet 2020-09 00:00: 00 Yes [id number] 1{tbl} Take 1 tablet by mouth every 6 (six) hours as needed for Pain (scale 4-6) or Pain (scale 7-10) for up to 12 doses. Indication s: acute pain, s-p generator change out [facility] acetaminoph en-codeine (TYLENOL-CO DEINE #3) 300-30 mg tablet 2020-09 00:00: 00 Yes [id number] 1{tbl} Take 1 tablet by mouth every 6 (six) hours as needed for Pain (scale 4-6) or Pain (scale 7-10) for up to 12 doses. Indication s: acute pain, s-p generator change out [facility] acetaminoph en-codeine (TYLENOL-CO DEINE #3) 300-30 mg tablet 2020-09 00:00: 00 Yes [id number] 1{tbl} Take 1 tablet by mouth every 6 (six) hours as needed for Pain (scale 4-6) or Pain (scale 7-10) for up to 12 doses. Indication s: acute pain, s-p generator change out [facility] acetaminoph en-codeine (TYLENOL-CO DEINE #3) 300-30 mg tablet 2020-09 00:00: 00 Yes [id number] 1{tbl} Take 1 tablet by mouth every 6 (six) hours as needed for Pain (scale 4-6) or Pain (scale 7-10) for up to 12 doses. Indication s: acute pain, s-p generator change out [facility] acetaminoph en-codeine (TYLENOL-CO DEINE #3) 300-30 mg tablet 2020-09 00:00: 00 Yes [id number] 1{tbl} Take 1 tablet by mouth every 6 (six) hours as needed for Pain (scale 4-6) or Pain (scale 7-10) for up to 12 doses. Indication s: acute pain, s-p generator change out [facility] acetaminoph en-codeine (TYLENOL-CO DEINE #3) 300-30 mg tablet 2020-09 00:00: 00 Yes [id number] 1{tbl} Take 1 tablet by mouth every 6 (six) hours as needed for Pain (scale 4-6) or Pain (scale 7-10) for up to 12 doses. Indication s: acute pain, s-p generator change out [facility] acetaminoph en-codeine (TYLENOL-CO DEINE #3) 300-30 mg tablet 2020-09 00:00: 00 Yes [id number] 1{tbl} Take 1 tablet by mouth every 6 (six) hours as needed for Pain (scale 4-6) or Pain (scale 7-10) for up to 12 doses. Indication s: acute pain, s-p generator change out [facility] acetaminoph en-codeine (TYLENOL-CO DEINE #3) 300-30 mg tablet 2020-09 00:00: 00 Yes [id number] 1{tbl} Take 1 tablet by mouth every 6 (six) hours as needed for Pain (scale 4-6) or Pain (scale 7-10) for up to 12 doses. Indication s: acute pain, s-p generator change out [facility] acetaminoph en-codeine (TYLENOL-CO DEINE #3) 300-30 mg tablet 2020-09 00:00: 00 Yes [id number] 1{tbl} Take 1 tablet by mouth every 6 (six) hours as needed for Pain (scale 4-6) or Pain (scale 7-10) for up to 12 doses. Indication s: acute pain, s-p generator change out [facility] acetaminoph en-codeine (TYLENOL-CO DEINE #3) 300-30 mg tablet 2020-09 00:00: 00 Yes [id number] 1{tbl} Take 1 tablet by mouth every 6 (six) hours as needed for Pain (scale 4-6) or Pain (scale 7-10) for up to 12 doses. Indication s: acute pain, s-p generator change out [facility] acetaminoph en-codeine (TYLENOL-CO DEINE #3) 300-30 mg tablet 2020-09 00:00: 00 Yes [id number] 1{tbl} Take 1 tablet by mouth every 6 (six) hours as needed for Pain (scale 4-6) or Pain (scale 7-10) for up to 12 doses. Indication s: acute pain, s-p generator change out [facility] acetaminoph en-codeine (TYLENOL-CO DEINE #3) 300-30 mg tablet 2020-09 00:00: 00 Yes [id number] 1{tbl} Take 1 tablet by mouth every 6 (six) hours as needed for Pain (scale 4-6) or Pain (scale 7-10) for up to 12 doses. Indication s: acute pain, s-p generator change out [facility] acetaminoph en-codeine (TYLENOL-CO DEINE #3) 300-30 mg tablet 2020-09 00:00: 00 Yes [id number] 1{tbl} Take 1 tablet by mouth every 6 (six) hours as needed for Pain (scale 4-6) or Pain (scale 7-10) for up to 12 doses. Indication s: acute pain, s-p generator change out [facility] acetaminoph en-codeine (TYLENOL-CO DEINE #3) 300-30 mg tablet 2020-09 00:00: 00 Yes [id number] 1{tbl} Take 1 tablet by mouth every 6 (six) hours as needed for Pain (scale 4-6) or Pain (scale 7-10) for up to 12 doses. Indication s: acute pain, s-p generator change out [facility] doxycycline 100 mg EC tablet 2020-09 00:00: 00 Yes [id number] 100mg Take 1 tablet by mouth 2 (two) times daily. [facility] doxycycline 100 mg EC tablet 2020-09 00:00: 00 Yes [id number] 100mg Take 1 tablet by mouth 2 (two) times daily. [facility] doxycycline 100 mg EC tablet 2020-09 00:00: 00 Yes [id number] 100mg Take 1 tablet by mouth 2 (two) times daily. [facility] doxycycline 100 mg EC tablet 2020-09 00:00: 00 Yes [id number] 100mg Take 1 tablet by mouth 2 (two) times daily. [facility] doxycycline 100 mg EC tablet 2020-09 00:00: 00 Yes [id number] 100mg Take 1 tablet by mouth 2 (two) times daily. [facility] doxycycline 100 mg EC tablet 2020-09 00:00: 00 Yes [id number] 100mg Take 1 tablet by mouth 2 (two) times daily. [facility] doxycycline 100 mg EC tablet 2020-09 00:00: 00 Yes [id number] 100mg Take 1 tablet by mouth 2 (two) times daily. [facility] doxycycline 100 mg EC tablet 2020-09 00:00: 00 Yes [id number] 100mg Take 1 tablet by mouth 2 (two) times daily. [facility] doxycycline 100 mg EC tablet 2020-09 00:00: 00 Yes [id number] 100mg Take 1 tablet by mouth 2 (two) times daily. [facility] doxycycline 100 mg EC tablet 2020-09 00:00: 00 Yes [id number] 100mg Take 1 tablet by mouth 2 (two) times daily. [facility] doxycycline 100 mg EC tablet 2020-09 00:00: 00 Yes [id number] 100mg Take 1 tablet by mouth 2 (two) times daily. [facility] doxycycline 100 mg EC tablet 2020-09 00:00: 00 Yes [id number] 100mg Take 1 tablet by mouth 2 (two) times daily. [facility] doxycycline 100 mg EC tablet 2020-09 00:00: 00 Yes [id number] 100mg Take 1 tablet by mouth 2 (two) times daily. [facility] doxycycline 100 mg EC tablet 2020-09 00:00: 00 Yes [id number] 100mg Take 1 tablet by mouth 2 (two) times daily. [facility] doxycycline 100 mg EC tablet 2020-09 00:00: 00 Yes [id number] 100mg Take 1 tablet by mouth 2 (two) times daily. [facility] doxycycline 100 mg EC tablet 2020-09 00:00: 00 Yes [id number] 100mg Take 1 tablet by mouth 2 (two) times daily. [facility] doxycycline 100 mg EC tablet 2020-09 00:00: 00 Yes [id number] 100mg Take 1 tablet by mouth 2 (two) times daily. [facility] doxycycline 100 mg EC tablet 2020-09 00:00: 00 Yes [id number] 100mg Take 1 tablet by mouth 2 (two) times daily. [facility] doxycycline 100 mg EC tablet 2020-09 00:00: 00 Yes [id number] 100mg Take 1 tablet by mouth 2 (two) times daily. [facility] doxycycline 100 mg EC tablet 2020-09 00:00: 00 Yes [id number] 100mg Take 1 tablet by mouth 2 (two) times daily. [facility] doxycycline 100 mg EC tablet 2020-09 00:00: 00 Yes [id number] 100mg Take 1 tablet by mouth 2 (two) times daily. [facility] doxycycline 100 mg EC tablet 2020-09 00:00: 00 Yes [id number] 100mg Take 1 tablet by mouth 2 (two) times daily. [facility] doxycycline 100 mg EC tablet 2020-09 00:00: 00 Yes [id number] 100mg Take 1 tablet by mouth 2 (two) times daily. [facility] doxycycline 100 mg EC tablet 2020-09 00:00: 00 Yes [id number] 100mg Take 1 tablet by mouth 2 (two) times daily. [facility] doxycycline 100 mg EC tablet 2020-09 00:00: 00 Yes [id number] 100mg Take 1 tablet by mouth 2 (two) times daily. [facility] doxycycline 100 mg EC tablet 2020-09 00:00: 00 Yes [id number] 100mg Take 1 tablet by mouth 2 (two) times daily. [facility] doxycycline 100 mg EC tablet 2020-09 00:00: 00 Yes [id number] 100mg Take 1 tablet by mouth 2 (two) times daily. [facility] doxycycline 100 mg EC tablet 2020-09 00:00: 00 Yes [id number] 100mg Take 1 tablet by mouth 2 (two) times daily. [facility] doxycycline 100 mg EC tablet 2020-09 00:00: 00 Yes [id number] 100mg Take 1 tablet by mouth 2 (two) times daily. [facility] doxycycline 100 mg EC tablet 2020-09 00:00: 00 Yes [id number] 100mg Take 1 tablet by mouth 2 (two) times daily. [facility] doxycycline 100 mg EC tablet 2020-09 00:00: 00 Yes [id number] 100mg Take 1 tablet by mouth 2 (two) times daily. [facility] doxycycline 100 mg EC tablet 2020-09 00:00: 00 Yes [id number] 100mg Take 1 tablet by mouth 2 (two) times daily. [facility] methylPREDN ISolone 4 MG methylPREDN ISolone 4 MG 2020-0 06-17 00:00: 00 06-23 00:00 :00 No QD methylPRED NISolone 4 MG methylPREDN ISolone 4 MG methylPREDN ISolone 4 MG 1-0 06-17 00:00: 00 06-23 00:00 :00 No QD methylPRED NISolone 4 MG Azithromyci n 250 MG Azithromyci n 250 MG 1-0 06-17 00:00: 00 06-22 00:00 :00 No QD Azithromyc in 250 MG Azithromyci n 250 MG Azithromyci n 250 MG 1-0 06-17 00:00: 00 06-22 00:00 :00 No QD Azithromyc in 250 MG Zolpidem Tartrate 5 MG Zolpidem Tartrate 5 MG 1-0 3-11 00:00: 00 No 1{table t_at_be dtime} Zolpidem Tartrate 5 MG Zolpidem Tartrate 5 MG Zolpidem Tartrate 5 MG 1-0 3-11 00:00: 00 No 1{table t_at_be dtime} Zolpidem Tartrate 5 MG Zolpidem Tartrate 5 MG Zolpidem Tartrate 5 MG 1-0 3-11 00:00: 00 No 1{table t_at_be dtime} Zolpidem Tartrate 5 MG Zolpidem Tartrate 5 MG Zolpidem Tartrate 5 MG 1-0 3-11 00:00: 00 No 1{table t_at_be dtime} Zolpidem Tartrate 5 MG Zolpidem Tartrate 5 MG Zolpidem Tartrate 5 MG 1-0 3-11 00:00: 00 No 1{table t_at_be dtime} Zolpidem Tartrate 5 MG Zolpidem Tartrate 5 MG Zolpidem Tartrate 5 MG 2021-0 3-11 00:00: 00 No 1{table t_at_be dtime} Zolpidem Tartrate 5 MG Zolpidem Tartrate 5 MG Zolpidem Tartrate 5 MG 2021-0 3-11 00:00: 00 No 1{table t_at_be dtime} Zolpidem Tartrate 5 MG Zolpidem Tartrate 5 MG Zolpidem Tartrate 5 MG 2021-0 3-11 00:00: 00 No 1{table t_at_be dtime} Zolpidem Tartrate 5 MG Zolpidem Tartrate 5 MG Zolpidem Tartrate 5 MG 2021-0 3-11 00:00: 00 No 1{table t_at_be dtime} Zolpidem Tartrate 5 MG Zolpidem Tartrate 5 MG Zolpidem Tartrate 5 MG 2021-0 3-11 00:00: 00 No 1{table t_at_be dtime} Zolpidem Tartrate 5 MG Zolpidem Tartrate 5 MG Zolpidem Tartrate 5 MG 2021-0 3-11 00:00: 00 No 1{table t_at_be dtime} Zolpidem Tartrate 5 MG Zolpidem Tartrate 5 MG Zolpidem Tartrate 5 MG 1-0 3-11 00:00: 00 No 1{table t_at_be dtime} Zolpidem Tartrate 5 MG Zolpidem Tartrate 5 MG Zolpidem Tartrate 5 MG 1-0 3-11 00:00: 00 No 1{table t_at_be dtime} Zolpidem Tartrate 5 MG Zolpidem Tartrate 5 MG Zolpidem Tartrate 5 MG 1-0 3-11 00:00: 00 No 1{table t_at_be dtime} Zolpidem Tartrate 5 MG Zolpidem Tartrate 5 MG Zolpidem Tartrate 5 MG 2021-0 3-11 00:00: 00 No 1{table t_at_be dtime} Zolpidem Tartrate 5 MG Zolpidem Tartrate 5 MG Zolpidem Tartrate 5 MG 2021-0 3-11 00:00: 00 No 1{table t_at_be dtime} Zolpidem Tartrate 5 MG Zolpidem Tartrate 5 MG Zolpidem Tartrate 5 MG 2021-0 3-11 00:00: 00 No 1{table t_at_be dtime} Zolpidem Tartrate 5 MG Zolpidem Tartrate 5 MG Zolpidem Tartrate 5 MG 2021-0 3-11 00:00: 00 No 1{table t_at_be dtime} Zolpidem Tartrate 5 MG Zolpidem Tartrate 5 MG Zolpidem Tartrate 5 MG 2021-0 3-11 00:00: 00 No 1{table t_at_be dtime} Zolpidem Tartrate 5 MG FUROSEMIDE 20 mg tablet 2020-0 4-30 00:00: 00 Yes [id number] 20mg TAKE 1 TABLET BY MOUTH EVERY MORNING AND EVENING. [facility] FUROSEMIDE 20 mg tablet 2020-0 4-30 00:00: 00 Yes [id number] 20mg TAKE 1 TABLET BY MOUTH EVERY MORNING AND EVENING. [facility] FUROSEMIDE 20 mg tablet 2020-0 430 00:00: 00 Yes [id number] 20mg TAKE 1 TABLET BY MOUTH EVERY MORNING AND EVENING. [facility] FUROSEMIDE 20 mg tablet 2020-0 430 00:00: 00 Yes [id number] 20mg TAKE 1 TABLET BY MOUTH EVERY MORNING AND EVENING. [facility] FUROSEMIDE 20 mg tablet 2020-0 430 00:00: 00 Yes [id number] 20mg TAKE 1 TABLET BY MOUTH EVERY MORNING AND EVENING. [facility] FUROSEMIDE 20 mg tablet 2020-0 430 00:00: 00 Yes [id number] 20mg TAKE 1 TABLET BY MOUTH EVERY MORNING AND EVENING. [facility] FUROSEMIDE 20 mg tablet 2020-0 430 00:00: 00 Yes [id number] 20mg TAKE 1 TABLET BY MOUTH EVERY MORNING AND EVENING. [facility] FUROSEMIDE 20 mg tablet 2020-0 430 00:00: 00 Yes [id number] 20mg TAKE 1 TABLET BY MOUTH EVERY MORNING AND EVENING. [facility] FUROSEMIDE 20 mg tablet 2020-0 4-30 00:00: 00 Yes [id number] 20mg TAKE 1 TABLET BY MOUTH EVERY MORNING AND EVENING. [facility] FUROSEMIDE 20 mg tablet 2020-0 4-30 00:00: 00 Yes [id number] 20mg TAKE 1 TABLET BY MOUTH EVERY MORNING AND EVENING. [facility] FUROSEMIDE 20 mg tablet 2020-0 4-30 00:00: 00 Yes [id number] 20mg TAKE 1 TABLET BY MOUTH EVERY MORNING AND EVENING. [facility] FUROSEMIDE 20 mg tablet 01-21 00:00: 00 Yes [id number] 20mg TAKE 1 TABLET BY MOUTH EVERY MORNING AND EVENING. [facility] FUROSEMIDE 20 mg tablet 01-21 00:00: 00 Yes [id number] 20mg TAKE 1 TABLET BY MOUTH EVERY MORNING AND EVENING. [facility] FUROSEMIDE 20 mg tablet 01-21 00:00: 00 Yes [id number] 20mg TAKE 1 TABLET BY MOUTH EVERY MORNING AND EVENING. [facility] FUROSEMIDE 20 mg tablet 01-21 00:00: 00 Yes [id number] 20mg TAKE 1 TABLET BY MOUTH EVERY MORNING AND EVENING. [facility] FUROSEMIDE 20 mg tablet 01-21 00:00: 00 12-18 00:00 :00 No [id number] 20mg TAKE 1 TABLET BY MOUTH EVERY MORNING AND EVENING. [facility] FUROSEMIDE 20 mg tablet 01-21 00:00: 00 12-18 00:00 :00 No [id number] 20mg TAKE 1 TABLET BY MOUTH EVERY MORNING AND EVENING. [facility] pravastatin 40 mg tablet 04-01 00:00: 00 Yes 40mg Take 40 mg by mouth daily. [facility] pravastatin 40 mg tablet 04-01 00:00: 00 Yes 40mg Take 40 mg by mouth daily. [facility] pravastatin 40 mg tablet 04-01 00:00: 00 Yes 40mg Take 40 mg by mouth daily. [facility] pravastatin 40 mg tablet 04-01 00:00: 00 Yes 40mg Take 40 mg by mouth daily. [facility] pravastatin 40 mg tablet 04-01 00:00: 00 Yes 40mg Take 40 mg by mouth daily. [facility] pravastatin 40 mg tablet 04-01 00:00: 00 Yes 40mg Take 40 mg by mouth daily. [facility] pravastatin 40 mg tablet 04-01 00:00: 00 Yes 40mg Take 40 mg by mouth daily. [facility]01 00:00: 00 Yes 40mg Take 40 mg by mouth daily. [facility] mg tablet 04-01 00:00: 00 Yes 40mg Take 40 mg by mouth daily. [facility] pravastatin 40 mg tablet 04-01 00:00: 00 Yes 40mg Take 40 mg by mouth daily. [facility] [facility]:00: 00 Yes 40mg Take 40 mg by mouth daily. [facility] pravastatin 40 mg tablet 04-01 00:00: 00 Yes 40mg Take 40 mg by mouth daily. [facility] pravastatin 40 mg tablet 04-01 00:00: 00 Yes 40mg Take 40 mg by mouth daily. [facility] pravastatin 40 mg tablet 04-01 00:00: 00 Yes 40mg Take 40 mg by mouth daily. [facility] pravastatin 40 mg tablet 04-01 00:00: 00 Yes 40mg Take 40 mg by mouth daily. [facility] pravastatin 40 mg tablet 04-01 00:00: 00 Yes 40mg Take 1 tablet by mouth in the morning. [facility] pravastatin 40 mg tablet 04-01 00:00: 00 Yes 40mg Take 1 tablet by mouth in the morning. [facility] pravastatin 40 mg tablet 04-01 00:00: 00 Yes 40mg Take 1 tablet by mouth in the morning. [facility] pravastatin 40 mg tablet 04-01 00:00: 00 Yes 40mg Take 1 tablet by mouth in the morning. [facility] pravastatin 40 mg tablet 04-01 00:00: 00 Yes 40mg Take 1 tablet by mouth in the morning. [facility] pravastatin 40 mg tablet 04-01 00:00: 00 Yes 40mg Take 1 tablet by mouth in the morning. [facility] pravastatin 40 mg tablet 04-01 00:00: 00 Yes 40mg Take 1 tablet by mouth in the morning. [facility] pravastatin 40 mg tablet 04-01 00:00: 00 Yes 40mg Take 1 tablet by mouth in the morning. [facility] pravastatin 40 mg tablet 04-01 00:00: 00 Yes 40mg Take 1 tablet by mouth in the morning. [facility] 04-01 00:00: 00 Yes 40mg Take 1 tablet by mouth in the morning. [facility] 04-01 00:00: 00 Yes 40mg Take 1 tablet by mouth in the morning. [facility] pravastatin 40 mg tablet 04-01 00:00: 00 Yes 40mg Take 1 tablet by mouth in the morning. [facility] pravastatin 40 mg tablet 04-01 00:00: 00 Yes 40mg Take 1 tablet by mouth in the morning. [facility] pravastatin 40 mg tablet 04-01 00:00: 00 Yes 40mg Take 1 tablet by mouth in the morning. [facility] pravastatin 40 mg tablet 04-01 00:00: 00 Yes 40mg Take 1 tablet by mouth in the morning. [facility] pravastatin 40 mg tablet 04-01 00:00: 00 Yes 40mg Take 1 tablet by mouth in the morning. [facility] pravastatin 40 mg tablet 04-01 00:00: 00 Yes 40mg Take 1 tablet by mouth in the morning. [facility] 50 mg 2015-09 21:38: 53 Yes 50mg [facility] traMADOL (ULTRAM) tablet 50 mg 2015-09 21:38: 53 Yes 50mg [facility] traMADOL (ULTRAM) tablet 50 mg 2015-09 21:38: 53 Yes 50mg [facility] 50 mg 2015-09 21:38: 53 Yes 50mg [facility] traMADOL (ULTRAM) tablet 50 mg 2015-09 21:38: 53 Yes 50mg [facility] traMADOL (ULTRAM) tablet 50 mg 2015-09 21:38: 53 Yes 50mg [facility] traMADOL (ULTRAM) tablet 50 mg 2015-09 21:38: 53 Yes 50mg [facility] traMADOL (ULTRAM) tablet 50 mg 2015-09 21:38: 53 Yes 50mg [facility] traMADOL (ULTRAM) tablet 50 mg 2015-09 21:38: 53 Yes 50mg [facility] traMADOL (ULTRAM) tablet 50 mg 2015-09 21:38: 53 Yes 50mg [facility] traMADOL (ULTRAM) tablet 50 mg 2015-09 21:38: 53 Yes 50mg [facility] traMADOL (ULTRAM) tablet 50 mg 2015-09 21:38: 53 Yes 50mg [facility] traMADOL (ULTRAM) tablet 50 mg 2015-09 21:38: 53 Yes 50mg [facility] traMADOL (ULTRAM) tablet 50 mg 2015-09 21:38: 53 Yes 50mg [facility] traMADOL (ULTRAM) tablet 50 mg 2015-09 21:38: 53 Yes 50mg [facility] traMADOL (ULTRAM) tablet 50 mg 2015-09 21:38: 53 Yes 50mg [facility] traMADOL (ULTRAM) tablet 50 mg 2015-09 21:38: 53 Yes 50mg [facility] traMADOL (ULTRAM) tablet 50 mg 2015-09 21:38: 53 Yes 50mg [facility] traMADOL (ULTRAM) tablet 50 mg 2015-09 21:38: 53 Yes 50mg [facility] traMADOL (ULTRAM) tablet 50 mg 2015-09 21:38: 53 Yes 50mg [facility] traMADOL (ULTRAM) tablet 50 mg 2015-09 21:38: 53 Yes 50mg [facility] traMADOL (ULTRAM) tablet 50 mg 2015-09 21:38: 53 Yes 50mg [facility] traMADOL (ULTRAM) tablet 50 mg 2015-09 21:38: 53 Yes 50mg [facility] traMADOL (ULTRAM) tablet 50 mg 2015-09 21:38: 53 Yes 50mg [facility] traMADOL (ULTRAM) tablet 50 mg 2015-09 21:38: 53 Yes 50mg [facility] traMADOL (ULTRAM) tablet 50 mg 2015-09 21:38: 53 Yes 50mg [facility] traMADOL (ULTRAM) tablet 50 mg 2015-09 21:38: 53 Yes 50mg [facility] traMADOL (ULTRAM) tablet 50 mg 2015-09 21:38: 53 Yes 50mg [facility] traMADOL (ULTRAM) tablet 50 mg 2015-09 21:38: 53 Yes 50mg [facility] levothyroxi ne (SYNTHROID) 100 mcg tablet 2015-09 00:00: 00 Yes [facility] levothyroxi ne (SYNTHROID) 100 mcg tablet 2015-09 00:00: 00 Yes [facility] levothyroxi ne (SYNTHROID) 100 mcg tablet 2015-09 00:00: 00 Yes [facility] levothyroxi ne (SYNTHROID) 100 mcg tablet 2015-09 00:00: 00 Yes [facility] levothyroxi ne (SYNTHROID) 100 mcg tablet 2015-09 00:00: 00 Yes [facility] levothyroxi ne (SYNTHROID) 100 mcg tablet 2015-09 00:00: 00 Yes [facility] levothyroxi ne (SYNTHROID) 100 mcg tablet 2015-09 00:00: 00 Yes [facility] levothyroxi ne (SYNTHROID) 100 mcg tablet 2015-09 00:00: 00 Yes [facility] levothyroxi ne (SYNTHROID) 100 mcg tablet 2015-09 00:00: 00 Yes [facility] levothyroxi ne (SYNTHROID) 100 mcg tablet 2015-09 00:00: 00 Yes [facility] levothyroxi ne (SYNTHROID) 100 mcg tablet 2015-09 00:00: 00 Yes [facility] levothyroxi ne (SYNTHROID) 100 mcg tablet 2015-09 00:00: 00 Yes [facility]ID[facility] 100 mcg tablet 2015-09 00:00: 00 Yes [facility]xi [facility] (SYNTHROID) 100 mcg tablet 2015-09 00:00: 00 Yes [facility] levothy[facility]xi ne (SYNTHROID) 100 mcg tablet 2015-09 00:00: 00 Yes [facility]xi [facility] (SYNTHROID) 100 mcg tablet 2015-09 00:00: 00 Yes 88ug Take 88 mcg in the morning. [facility]xi [facility] (SYNTHROID) 100 mcg tablet 2015-09 00:00: 00 Yes 88ug Take 88 mcg in the morning. [facility] levothyroxi ne (SYNTHROID) 100 mcg tablet 2015-09 00:00: 00 Yes 88ug Take 88 mcg in the morning. [facility] levothyroxi ne (SYNTHROID) 100 mcg tablet 2015-09 00:00: 00 Yes 88ug Take 88 mcg in the morning. [facility] levothy[facility]xi ne (SYNTHROID) 100 mcg tablet 2015-09 00:00: 00 Yes 88ug Take 88 mcg in the morning. [facility] levothy[facility]xi ne (SYNTHROID) 100 mcg tablet 2015-09 00:00: 00 Yes 88ug Take 88 mcg in the morning. [facility] lev[facility]xi ne (SYNTHROID) 100 mcg tablet 2015-09 00:00: 00 Yes 88ug Take 88 mcg in the morning. [facility] levothyroxi ne (SYNTHROID) 100 mcg tablet 2015-09 00:00: 00 Yes 88ug Take 88 mcg in the morning. [facility] levothyroxi ne (SYNTHROID) 100 mcg tablet 2015-09 00:00: 00 Yes 88ug Take 88 mcg in the morning. [facility] levothyroxi ne (SYNTHROID) 100 mcg tablet 2015-09 00:00: 00 Yes 88ug Take 88 mcg in the morning. [facility] levothyroxi ne (SYNTHROID) 100 mcg tablet 2015-09 00:00: 00 Yes 88ug Take 88 mcg in the morning. [facility] levothyroxi ne (SYNTHROID) 100 mcg tablet 2015-09 00:00: 00 Yes 88ug Take 88 mcg in the morning. [facility] levothyroxi ne (SYNTHROID) 100 mcg tablet 2015-09 00:00: 00 Yes 88ug Take 88 mcg in the morning. [facility] levothyroxi ne (SYNTHROID) 100 mcg tablet 2015-09 00:00: 00 Yes 88ug Take 88 mcg in the morning. [facility] levothyroxi ne (SYNTHROID) 100 mcg tablet 2015-09 00:00: 00 Yes 88ug Take 88 mcg in the morning. [facility] levothyroxi ne (SYNTHROID) 100 mcg tablet 2015-09 00:00: 00 Yes 88ug Take 88 mcg in the morning. [facility] levothyroxi ne (SYNTHROID) 100 mcg tablet 2015-09 00:00: 00 Yes 88ug Take 88 mcg in the morning. [facility] traZODone (DESYREL) 150 mg tablet 06-13 00:00: 00 Yes at bedtime. [facility] traZODone (DESYREL) 150 mg tablet 06-13 00:00: 00 Yes at bedtime. [facility] traZODone (DESYREL) 150 mg tablet 06-13 00:00: 00 Yes at bedtime. [facility] traZODone (DESYREL) 150 mg tablet 06-13 00:00: 00 Yes at bedtime. [facility] traZODone (DESYREL) 150 mg tablet 06-13 00:00: 00 Yes at bedtime. [facility] traZODone (DESYREL) 150 mg tablet 06-13 00:00: 00 Yes at bedtime. [facility] traZODone (DESYREL) 150 mg tablet 06-13 00:00: 00 Yes at bedtime. [facility] traZODone (DESYREL) 150 mg tablet 06-13 00:00: 00 Yes at bedtime. [facility] traZODone (DESYREL) 150 mg tablet 06-13 00:00: 00 Yes at bedtime. [facility] traZODone (DESYREL) 150 mg tablet 06-13 00:00: 00 Yes at bedtime. [facility] traZODone (DESYREL) 150 mg tablet 06-13 00:00: 00 Yes at bedtime. [facility] traZODone (DESYREL) 150 mg tablet 06-13 00:00: 00 Yes at bedtime. [facility] traZODone (DESYREL) 150 mg tablet 06-13 00:00: 00 Yes at bedtime. [facility] traZODone (DESYREL) 150 mg tablet 06-13 00:00: 00 Yes at bedtime. [facility] traZODone (DESYREL) 150 mg tablet 06-13 00:00: 00 Yes at bedtime. [facility] traZODone (DESYREL) 150 mg tablet 06-13 00:00: 00 Yes at bedtime. [facility] traZODone (DESYREL) 150 mg tablet 06-13 00:00: 00 Yes at bedtime. [facility] traZODone (DESYREL) 150 mg tablet 06-13 00:00: 00 Yes at bedtime. [facility] 150 mg tablet 06-13 00:00: 00 Yes at bedtime. [facility]REL) 150 mg tablet 06-13 00:00: 00 Yes at bedtime. [facility] traZODone (DESYREL) 150 mg tablet 06-13 00:00: 00 Yes at bedtime. [facility] traZODone (DESYREL) 150 mg tablet 06-13 00:00: 00 Yes at bedtime. [facility] traZODone (DESYREL) 150 mg tablet 06-13 00:00: 00 Yes at bedtime. [facility] traZODone (DESYREL) 150 mg tablet 06-13 00:00: 00 Yes at bedtime. [facility] traZODone (DESYREL) 150 mg tablet 06-13 00:00: 00 Yes at bedtime. [facility] traZODone (DESYREL) 150 mg tablet 06-13 00:00: 00 Yes at bedtime. [facility] traZODone (DESYREL) 150 mg tablet 06-13 00:00: 00 Yes at bedtime. [facility] traZODone (DESYREL) 150 mg tablet 06-13 00:00: 00 Yes at bedtime. [facility] traZODone (DESYREL) 150 mg tablet 06-13 00:00: 00 Yes at bedtime. [facility] traZODone (DESYREL) 150 mg tablet 06-13 00:00: 00 Yes at bedtime. [facility] traZODone (DESYREL) 150 mg tablet 06-13 00:00: 00 Yes at bedtime. [facility] traZODone (DESYREL) 150 mg tablet 06-13 00:00: 00 Yes at bedtime. [facility] Ferrous Sulfate 325 (65 Fe) MG Ferrous Sulfate 325 (65 Fe) MG No 1{table t} BID Ferrous Sulfate 325 (65 Fe) MG Symbicort 160-4.5 MCG/ACT Symbicort 160-4.5 MCG/ACT No 2{puffs } BID Symbicort 160-4.5 MCG/ACT Ezetimibe 10 MG Ezetimibe 10 MG No 1{table t} QD Ezetimibe 10 MG ProAir HFA 108 (90 Base) MCG/ACT ProAir HFA 108 (90 Base) MCG/ACT No 2{puffs _as_nee ded} QID ProAir HFA 108 (90 Base) MCG/ACT sulfaSALAzi ne 500 MG sulfaSALAzi ne 500 MG No 2{table t} QD sulfaSALAz ine 500 MG Citalopram Hydrobromid e 20 MG Citalopram Hydrobromid e 20 MG No Citalopram Hydrobromi de 20 MG Tylenol Tylenol No Tylenol Aspir-81 81 MG Aspir-81 81 MG No 1{table t} QD Aspir-81 81 MG ProAir HFA 108 (90 Base) MCG/ACT ProAir HFA 108 (90 Base) MCG/ACT No 2{puffs _as_nee ded} QID ProAir HFA 108 (90 Base) MCG/ACT Plavix 75 MG Plavix 75 MG No 1{table t} QD Plavix 75 MG Furosemide 20 MG Furosemide 20 MG No 1{table t} QD Furosemide 20 MG Citalopram Hydrobromid e 20 MG Citalopram Hydrobromid e 20 MG No Citalopram Hydrobromi de 20 MG Coreg 3.125 MG Coreg 3.125 MG No Coreg 3.125 MG Entresto 24-26 MG Entresto 24-26 MG No 1{table t} QD Entresto 24-26 MG Pantoprazol e Sodium 40 MG Pantoprazol e Sodium 40 MG No 1{table t} QD Pantoprazo le Sodium 40 MG busPIRone HCl 10 MG busPIRone HCl 10 MG No 1{table t} BID busPIRone HCl 10 MG Plavix 75 MG Plavix 75 MG No 1{table t} QD Plavix 75 MG Levothyroxi ne Sodium 88 MCG Levothyroxi ne Sodium 88 MCG No Levothyrox ine Sodium 88 MCG Pantoprazol e Sodium 40 MG Pantoprazol e Sodium 40 MG No Pantoprazo le Sodium 40 MG Pravastatin Sodium 40 MG Pravastatin Sodium 40 MG No 1{table t} QD Pravastati n Sodium 40 MG Levothyroxi ne Sodium 75 MCG Levothyroxi ne Sodium 75 MCG No QD Levothyrox ine Sodium 75 MCG busPIRone HCl 10 MG busPIRone HCl 10 MG No busPIRone HCl 10 MG Levothyroxi ne Sodium 75 MCG Levothyroxi ne Sodium 75 MCG No QD Levothyrox ine Sodium 75 MCG Ferrous Sulfate 325 (65 Fe) MG Ferrous Sulfate 325 (65 Fe) MG No 1{table t} BID Ferrous Sulfate 325 (65 Fe) MG Symbicort 160-4.5 MCG/ACT Symbicort 160-4.5 MCG/ACT No 2{puffs } BID Symbicort 160-4.5 MCG/ACT Ezetimibe 10 MG Ezetimibe 10 MG No 1{table t} QD Ezetimibe 10 MG Coreg 3.125 MG Coreg 3.125 MG No Coreg 3.125 MG Tylenol Tylenol No Tylenol Aspir-81 81 MG Aspir-81 81 MG No 1{table t} QD Aspir-81 81 MG Furosemide 20 MG Furosemide 20 MG No Furosemide 20 MG ProAir HFA 108 (90 Base) MCG/ACT ProAir HFA 108 (90 Base) MCG/ACT No 2{puffs _as_nee ded} QID ProAir HFA 108 (90 Base) MCG/ACT Plavix 75 MG Plavix 75 MG No 1{table t} QD Plavix 75 MG Furosemide 20 MG Furosemide 20 MG No 1{table t} QD Furosemide 20 MG Citalopram Hydrobromid e 20 MG Citalopram Hydrobromid e 20 MG No Citalopram Hydrobromi de 20 MG Coreg 3.125 MG Coreg 3.125 MG No Coreg 3.125 MG Entresto 24-26 MG Entresto 24-26 MG No 1{table t} QD Entresto 24-26 MG Pantoprazol e Sodium 40 MG Pantoprazol e Sodium 40 MG No 1{table t} QD Pantoprazo le Sodium 40 MG busPIRone HCl 10 MG busPIRone HCl 10 MG No 1{table t} BID busPIRone HCl 10 MG Levothyroxi ne Sodium 88 MCG Levothyroxi ne Sodium 88 MCG No Levothyrox ine Sodium 88 MCG Pantoprazol e Sodium 40 MG Pantoprazol e Sodium 40 MG No Pantoprazo le Sodium 40 MG traZODone HCl 150 MG traZODone HCl 150 MG No QD traZODone HCl 150 MG Pravastatin Sodium 40 MG Pravastatin Sodium 40 MG No 1{table t} QD Pravastati n Sodium 40 MG Levothyroxi ne Sodium 75 MCG Levothyroxi ne Sodium 75 MCG No QD Levothyrox ine Sodium 75 MCG busPIRone HCl 10 MG busPIRone HCl 10 MG No busPIRone HCl 10 MG Levothyroxi ne Sodium 75 MCG Levothyroxi ne Sodium 75 MCG No QD Levothyrox ine Sodium 75 MCG Ferrous Sulfate 325 (65 Fe) MG Ferrous Sulfate 325 (65 Fe) MG No 1{table t} BID Ferrous Sulfate 325 (65 Fe) MG Symbicort 160-4.5 MCG/ACT Symbicort 160-4.5 MCG/ACT No 2{puffs } BID Symbicort 160-4.5 MCG/ACT Ezetimibe 10 MG Ezetimibe 10 MG No 1{table t} QD Ezetimibe 10 MG Entresto 49-51 MG Entresto 49-51 MG No 1{table t} BID Entresto 49-51 MG Ferrous Sulfate 325 (65 Fe) MG Ferrous Sulfate 325 (65 Fe) MG No 1{table t} QD Ferrous Sulfate 325 (65 Fe) MG Pantoprazol e Sodium 40 MG Pantoprazol e Sodium 40 MG No Pantoprazo le Sodium 40 MG Vitamin D3 1000 UNIT Vitamin D3 1000 UNIT No 1{capsu le} QD Vitamin D3 1000 UNIT Aspir-81 81 MG Aspir-81 81 MG No 1{table t} QD Aspir-81 81 MG Levothyroxi ne Sodium 100 MCG Levothyroxi ne Sodium 100 MCG No QD Levothyrox ine Sodium 100 MCG busPIRone HCl 10 MG busPIRone HCl 10 MG No busPIRone HCl 10 MG Pravastatin Sodium 40 MG Pravastatin Sodium 40 MG No 1{table t} QD Pravastati n Sodium 40 MG Symbicort 160-4.5 MCG/ACT Symbicort 160-4.5 MCG/ACT No 2{puffs } BID Symbicort 160-4.5 MCG/ACT ProAir HFA 108 (90 Base) MCG/ACT ProAir HFA 108 (90 Base) MCG/ACT No 2{puffs _as_nee ded} QID ProAir HFA 108 (90 Base) MCG/ACT traZODone HCl 150 MG traZODone HCl 150 MG No traZODone HCl 150 MG Citalopram Hydrobromid e 20 MG Citalopram Hydrobromid e 20 MG No Citalopram Hydrobromi de 20 MG Ferrous Sulfate 325 (65 Fe) MG Ferrous Sulfate 325 (65 Fe) MG No 1{table t} QD Ferrous Sulfate 325 (65 Fe) MG Coreg 3.125 MG Coreg 3.125 MG No Coreg 3.125 MG Plavix 75 MG Plavix 75 MG No 1{table t} QD Plavix 75 MG Aspir-81 81 MG Aspir-81 81 MG No 1{table t} QD Aspir-81 81 MG Entresto 49-51 MG Entresto 49-51 MG No 1{table t} BID Entresto 49-51 MG busPIRone HCl 10 MG busPIRone HCl 10 MG No busPIRone HCl 10 MG Pravastatin Sodium 40 MG Pravastatin Sodium 40 MG No 1{table t} QD Pravastati n Sodium 40 MG sulfaSALAzi ne 500 MG sulfaSALAzi ne 500 MG No 2{table t} QD sulfaSALAz ine 500 MG Pantoprazol e Sodium 40 MG Pantoprazol e Sodium 40 MG No Pantoprazo le Sodium 40 MG Furosemide 20 MG Furosemide 20 MG No Furosemide 20 MG Vitamin D3 1000 UNIT Vitamin D3 1000 UNIT No 1{capsu le} QD Vitamin D3 1000 UNIT Levothyroxi ne Sodium 100 MCG Levothyroxi ne Sodium 100 MCG No Levothyrox ine Sodium 100 MCG Entresto 49-51 MG Entresto 49-51 MG No 1{table t} BID Entresto 49-51 MG Symbicort 160-4.5 MCG/ACT Symbicort 160-4.5 MCG/ACT No 2{puffs } BID Symbicort 160-4.5 MCG/ACT Aspir-81 81 MG Aspir-81 81 MG No 1{table t} QD Aspir-81 81 MG Levothyroxi ne Sodium 100 MCG Levothyroxi ne Sodium 100 MCG No Levothyrox ine Sodium 100 MCG traZODone HCl 150 MG traZODone HCl 150 MG No traZODone HCl 150 MG Pravastatin Sodium 40 MG Pravastatin Sodium 40 MG No Pravastati n Sodium 40 MG busPIRone HCl 10 MG busPIRone HCl 10 MG No busPIRone HCl 10 MG Vitamin D3 1000 UNIT Vitamin D3 1000 UNIT No 1{capsu le} QD Vitamin D3 1000 UNIT ProAir HFA 108 (90 Base) MCG/ACT ProAir HFA 108 (90 Base) MCG/ACT No 2{puffs _as_nee ded} QID ProAir HFA 108 (90 Base) MCG/ACT Pantoprazol e Sodium 40 MG Pantoprazol e Sodium 40 MG No Pantoprazo le Sodium 40 MG Citalopram Hydrobromid e 20 MG Citalopram Hydrobromid e 20 MG No Citalopram Hydrobromi de 20 MG Coreg 3.125 MG Coreg 3.125 MG No Coreg 3.125 MG Plavix 75 MG Plavix 75 MG No 1{table t} QD Plavix 75 MG sulfaSALAzi ne 500 MG sulfaSALAzi ne 500 MG No 2{table t} QD sulfaSALAz ine 500 MG Furosemide 20 MG Furosemide 20 MG No Furosemide 20 MG Ferrous Sulfate 325 (65 Fe) MG Ferrous Sulfate 325 (65 Fe) MG No 1{table t} QD Ferrous Sulfate 325 (65 Fe) MG Entresto 49-51 MG Entresto 49-51 MG No 1{table t} BID Entresto 49-51 MG Symbicort 160-4.5 MCG/ACT Symbicort 160-4.5 MCG/ACT No 2{puffs } BID Symbicort 160-4.5 MCG/ACT Aspir-81 81 MG Aspir-81 81 MG No 1{table t} QD Aspir-81 81 MG Levothyroxi ne Sodium 100 MCG Levothyroxi ne Sodium 100 MCG No Levothyrox ine Sodium 100 MCG traZODone HCl 150 MG traZODone HCl 150 MG No traZODone HCl 150 MG Pravastatin Sodium 40 MG Pravastatin Sodium 40 MG No Pravastati n Sodium 40 MG busPIRone HCl 10 MG busPIRone HCl 10 MG No busPIRone HCl 10 MG Vitamin D3 1000 UNIT Vitamin D3 1000 UNIT No 1{capsu le} QD Vitamin D3 1000 UNIT ProAir HFA 108 (90 Base) MCG/ACT ProAir HFA 108 (90 Base) MCG/ACT No 2{puffs _as_nee ded} QID ProAir HFA 108 (90 Base) MCG/ACT Pantoprazol e Sodium 40 MG Pantoprazol e Sodium 40 MG No Pantoprazo le Sodium 40 MG Citalopram Hydrobromid e 20 MG Citalopram Hydrobromid e 20 MG No Citalopram Hydrobromi de 20 MG Coreg 3.125 MG Coreg 3.125 MG No Coreg 3.125 MG Plavix 75 MG Plavix 75 MG No 1{table t} QD Plavix 75 MG sulfaSALAzi ne 500 MG sulfaSALAzi ne 500 MG No 2{table t} QD sulfaSALAz ine 500 MG Furosemide 20 MG Furosemide 20 MG No Furosemide 20 MG Ferrous Sulfate 325 (65 Fe) MG Ferrous Sulfate 325 (65 Fe) MG No 1{table t} QD Ferrous Sulfate 325 (65 Fe) MG Aspir-81 81 MG Aspir-81 81 MG No 1{table t} QD Aspir-81 81 MG Levothyroxi ne Sodium 100 MCG Levothyroxi ne Sodium 100 MCG No Levothyrox ine Sodium 100 MCG ProAir HFA 108 (90 Base) MCG/ACT ProAir HFA 108 (90 Base) MCG/ACT No 2{puffs _as_nee ded} QID ProAir HFA 108 (90 Base) MCG/ACT traZODone HCl 150 MG traZODone HCl 150 MG No traZODone HCl 150 MG Pravastatin Sodium 40 MG Pravastatin Sodium 40 MG No Pravastati n Sodium 40 MG busPIRone HCl 10 MG busPIRone HCl 10 MG No busPIRone HCl 10 MG Vitamin D3 1000 UNIT Vitamin D3 1000 UNIT No 1{capsu le} QD Vitamin D3 1000 UNIT Citalopram Hydrobromid e 20 MG Citalopram Hydrobromid e 20 MG No Citalopram Hydrobromi de 20 MG Plavix 75 MG Plavix 75 MG No 1{table t} QD Plavix 75 MG Pantoprazol e Sodium 40 MG Pantoprazol e Sodium 40 MG No Pantoprazo le Sodium 40 MG Symbicort 160-4.5 MCG/ACT Symbicort 160-4.5 MCG/ACT No 2{puffs } BID Symbicort 160-4.5 MCG/ACT Coreg 3.125 MG Coreg 3.125 MG No Coreg 3.125 MG Ferrous Sulfate 325 (65 Fe) MG Ferrous Sulfate 325 (65 Fe) MG No 1{table t} QD Ferrous Sulfate 325 (65 Fe) MG sulfaSALAzi ne 500 MG sulfaSALAzi ne 500 MG No 2{table t} QD sulfaSALAz ine 500 MG Furosemide 20 MG Furosemide 20 MG No Furosemide 20 MG Entresto 49-51 MG Entresto 49-51 MG No 1{table t} BID Entresto 49-51 MG Aspir-81 81 MG Aspir-81 81 MG No 1{table t} QD Aspir-81 81 MG Levothyroxi ne Sodium 100 MCG Levothyroxi ne Sodium 100 MCG No Levothyrox ine Sodium 100 MCG ProAir HFA 108 (90 Base) MCG/ACT ProAir HFA 108 (90 Base) MCG/ACT No 2{puffs _as_nee ded} QID ProAir HFA 108 (90 Base) MCG/ACT traZODone HCl 150 MG traZODone HCl 150 MG No traZODone HCl 150 MG Pravastatin Sodium 40 MG Pravastatin Sodium 40 MG No Pravastati n Sodium 40 MG busPIRone HCl 10 MG busPIRone HCl 10 MG No busPIRone HCl 10 MG Vitamin D3 1000 UNIT Vitamin D3 1000 UNIT No 1{capsu le} QD Vitamin D3 1000 UNIT Citalopram Hydrobromid e 20 MG Citalopram Hydrobromid e 20 MG No Citalopram Hydrobromi de 20 MG Plavix 75 MG Plavix 75 MG No 1{table t} QD Plavix 75 MG Pantoprazol e Sodium 40 MG Pantoprazol e Sodium 40 MG No Pantoprazo le Sodium 40 MG Symbicort 160-4.5 MCG/ACT Symbicort 160-4.5 MCG/ACT No 2{puffs } BID Symbicort 160-4.5 MCG/ACT Coreg 3.125 MG Coreg 3.125 MG No Coreg 3.125 MG Ferrous Sulfate 325 (65 Fe) MG Ferrous Sulfate 325 (65 Fe) MG No 1{table t} QD Ferrous Sulfate 325 (65 Fe) MG sulfaSALAzi ne 500 MG sulfaSALAzi ne 500 MG No 2{table t} QD sulfaSALAz ine 500 MG Furosemide 20 MG Furosemide 20 MG No Furosemide 20 MG Entresto 49-51 MG Entresto 49-51 MG No 1{table t} BID Entresto 49-51 MG Aspir-81 81 MG Aspir-81 81 MG No 1{table t} QD Aspir-81 81 MG Levothyroxi ne Sodium 100 MCG Levothyroxi ne Sodium 100 MCG No Levothyrox ine Sodium 100 MCG ProAir HFA 108 (90 Base) MCG/ACT ProAir HFA 108 (90 Base) MCG/ACT No 2{puffs _as_nee ded} QID ProAir HFA 108 (90 Base) MCG/ACT Pantoprazol e Sodium 40 MG Pantoprazol e Sodium 40 MG No Pantoprazo le Sodium 40 MG Vitamin D3 1000 UNIT Vitamin D3 1000 UNIT No 1{capsu le} QD Vitamin D3 1000 UNIT Pravastatin Sodium 40 MG Pravastatin Sodium 40 MG No Pravastati n Sodium 40 MG sulfaSALAzi ne 500 MG sulfaSALAzi ne 500 MG No 2{table t} QD sulfaSALAz ine 500 MG Plavix 75 MG Plavix 75 MG No 1{table t} QD Plavix 75 MG Furosemide 20 MG Furosemide 20 MG No Furosemide 20 MG Coreg 3.125 MG Coreg 3.125 MG No Coreg 3.125 MG Symbicort 160-4.5 MCG/ACT Symbicort 160-4.5 MCG/ACT No 2{puffs } BID Symbicort 160-4.5 MCG/ACT Citalopram Hydrobromid e 20 MG Citalopram Hydrobromid e 20 MG No Citalopram Hydrobromi de 20 MG Ferrous Sulfate 325 (65 Fe) MG Ferrous Sulfate 325 (65 Fe) MG No 1{table t} QD Ferrous Sulfate 325 (65 Fe) MG traZODone HCl 150 MG traZODone HCl 150 MG No traZODone HCl 150 MG busPIRone HCl 10 MG busPIRone HCl 10 MG No busPIRone HCl 10 MG Entresto 49-51 MG Entresto 49-51 MG No 1{table t} BID Entresto 49-51 MG Aspir-81 81 MG Aspir-81 81 MG No 1{table t} QD Aspir-81 81 MG Levothyroxi ne Sodium 100 MCG Levothyroxi ne Sodium 100 MCG No Levothyrox ine Sodium 100 MCG ProAir HFA 108 (90 Base) MCG/ACT ProAir HFA 108 (90 Base) MCG/ACT No 2{puffs _as_nee ded} QID ProAir HFA 108 (90 Base) MCG/ACT Pantoprazol e Sodium 40 MG Pantoprazol e Sodium 40 MG No Pantoprazo le Sodium 40 MG Vitamin D3 1000 UNIT Vitamin D3 1000 UNIT No 1{capsu le} QD Vitamin D3 1000 UNIT Pravastatin Sodium 40 MG Pravastatin Sodium 40 MG No Pravastati n Sodium 40 MG sulfaSALAzi ne 500 MG sulfaSALAzi ne 500 MG No 2{table t} QD sulfaSALAz ine 500 MG Plavix 75 MG Plavix 75 MG No 1{table t} QD Plavix 75 MG Furosemide 20 MG Furosemide 20 MG No Furosemide 20 MG Coreg 3.125 MG Coreg 3.125 MG No Coreg 3.125 MG Symbicort 160-4.5 MCG/ACT Symbicort 160-4.5 MCG/ACT No 2{puffs } BID Symbicort 160-4.5 MCG/ACT Citalopram Hydrobromid e 20 MG Citalopram Hydrobromid e 20 MG No Citalopram Hydrobromi de 20 MG Ferrous Sulfate 325 (65 Fe) MG Ferrous Sulfate 325 (65 Fe) MG No 1{table t} QD Ferrous Sulfate 325 (65 Fe) MG traZODone HCl 150 MG traZODone HCl 150 MG No traZODone HCl 150 MG busPIRone HCl 10 MG busPIRone HCl 10 MG No busPIRone HCl 10 MG Entresto 49-51 MG Entresto 49-51 MG No 1{table t} BID Entresto 49-51 MG Furosemide 20 MG Furosemide 20 MG No Furosemide 20 MG Furosemide 20 MG Furosemide 20 MG No 1{table t} QD Furosemide 20 MG busPIRone HCl 10 MG busPIRone HCl 10 MG No busPIRone HCl 10 MG Coreg 3.125 MG Coreg 3.125 MG No Coreg 3.125 MG traZODone HCl 100 MG traZODone HCl 100 MG No 2{table t_at_be dtime} QD traZODone HCl 100 MG Pantoprazol e Sodium 40 MG Pantoprazol e Sodium 40 MG No Pantoprazo le Sodium 40 MG Levothyroxi ne Sodium 100 MCG Levothyroxi ne Sodium 100 MCG No Levothyrox ine Sodium 100 MCG Pravastatin Sodium 40 MG Pravastatin Sodium 40 MG No Pravastati n Sodium 40 MG Symbicort 160-4.5 MCG/ACT Symbicort 160-4.5 MCG/ACT No 2{puffs } BID Symbicort 160-4.5 MCG/ACT Levothyroxi ne Sodium 112 MCG Levothyroxi ne Sodium 112 MCG No QD Levothyrox ine Sodium 112 MCG Pantoprazol e Sodium 40 MG Pantoprazol e Sodium 40 MG No 1{table t} QD Pantoprazo le Sodium 40 MG traZODone HCl 150 MG traZODone HCl 150 MG No traZODone HCl 150 MG Citalopram Hydrobromid e 20 MG Citalopram Hydrobromid e 20 MG No 1{table t} QD Citalopram Hydrobromi de 20 MG busPIRone HCl 10 MG busPIRone HCl 10 MG No 1{table t} BID busPIRone HCl 10 MG Pravastatin Sodium 40 MG Pravastatin Sodium 40 MG No 1{table t} QD Pravastati n Sodium 40 MG sulfaSALAzi ne 500 MG sulfaSALAzi ne 500 MG No 2{table t} QD sulfaSALAz ine 500 MG Ferrous Sulfate 325 (65 Fe) MG Ferrous Sulfate 325 (65 Fe) MG No 1{table t} QD Ferrous Sulfate 325 (65 Fe) MG Aspir-81 81 MG Aspir-81 81 MG No 1{table t} QD Aspir-81 81 MG Vitamin D3 1000 UNIT Vitamin D3 1000 UNIT No 1{capsu le} QD Vitamin D3 1000 UNIT ProAir HFA 108 (90 Base) MCG/ACT ProAir HFA 108 (90 Base) MCG/ACT No 2{puffs _as_nee ded} QID ProAir HFA 108 (90 Base) MCG/ACT Entresto 49-51 MG Entresto 49-51 MG No 1{table t} BID Entresto 49-51 MG Plavix 75 MG Plavix 75 MG No 1{table t} QD Plavix 75 MG Citalopram Hydrobromid e 20 MG Citalopram Hydrobromid e 20 MG No Citalopram Hydrobromi de 20 MG Symbicort 160-4.5 MCG/ACT Symbicort 160-4.5 MCG/ACT No 2{puffs } BID Symbicort 160-4.5 MCG/ACT Furosemide 20 MG Furosemide 20 MG No Furosemide 20 MG ProAir HFA 108 (90 Base) MCG/ACT ProAir HFA 108 (90 Base) MCG/ACT No 2{puffs _as_nee ded} QID ProAir HFA 108 (90 Base) MCG/ACT Levothyroxi ne Sodium 112 MCG Levothyroxi ne Sodium 112 MCG No QD Levothyrox ine Sodium 112 MCG busPIRone HCl 10 MG busPIRone HCl 10 MG No busPIRone HCl 10 MG Aspir-81 81 MG Aspir-81 81 MG No 1{table t} QD Aspir-81 81 MG sulfaSALAzi ne 500 MG sulfaSALAzi ne 500 MG No 2{table t} QD sulfaSALAz ine 500 MG Pantoprazol e Sodium 40 MG Pantoprazol e Sodium 40 MG No Pantoprazo le Sodium 40 MG Citalopram Hydrobromid e 20 MG Citalopram Hydrobromid e 20 MG No Citalopram Hydrobromi de 20 MG Pravastatin Sodium 40 MG Pravastatin Sodium 40 MG No 1{table t} QD Pravastati n Sodium 40 MG Ferrous Sulfate 325 (65 Fe) MG Ferrous Sulfate 325 (65 Fe) MG No 1{table t} QD Ferrous Sulfate 325 (65 Fe) MG Vitamin D3 1000 UNIT Vitamin D3 1000 UNIT No 1{capsu le} QD Vitamin D3 1000 UNIT Levothyroxi ne Sodium 100 MCG Levothyroxi ne Sodium 100 MCG No Levothyrox ine Sodium 100 MCG Coreg 3.125 MG Coreg 3.125 MG No Coreg 3.125 MG Pravastatin Sodium 40 MG Pravastatin Sodium 40 MG No Pravastati n Sodium 40 MG Pantoprazol e Sodium 40 MG Pantoprazol e Sodium 40 MG No 1{table t} QD Pantoprazo le Sodium 40 MG traZODone HCl 100 MG traZODone HCl 100 MG No 2{table t_at_be dtime} QD traZODone HCl 100 MG traZODone HCl 150 MG traZODone HCl 150 MG No traZODone HCl 150 MG Citalopram Hydrobromid e 20 MG Citalopram Hydrobromid e 20 MG No 1{table t} QD Citalopram Hydrobromi de 20 MG Plavix 75 MG Plavix 75 MG No 1{table t} QD Plavix 75 MG Entresto 49-51 MG Entresto 49-51 MG No 1{table t} BID Entresto 49-51 MG Symbicort 160-4.5 MCG/ACT Symbicort 160-4.5 MCG/ACT No 2{puffs } BID Symbicort 160-4.5 MCG/ACT Furosemide 20 MG Furosemide 20 MG No Furosemide 20 MG ProAir HFA 108 (90 Base) MCG/ACT ProAir HFA 108 (90 Base) MCG/ACT No 2{puffs _as_nee ded} QID ProAir HFA 108 (90 Base) MCG/ACT Levothyroxi ne Sodium 112 MCG Levothyroxi ne Sodium 112 MCG No QD Levothyrox ine Sodium 112 MCG busPIRone HCl 10 MG busPIRone HCl 10 MG No busPIRone HCl 10 MG Aspir-81 81 MG Aspir-81 81 MG No 1{table t} QD Aspir-81 81 MG sulfaSALAzi ne 500 MG sulfaSALAzi ne 500 MG No 2{table t} QD sulfaSALAz ine 500 MG Pantoprazol e Sodium 40 MG Pantoprazol e Sodium 40 MG No Pantoprazo le Sodium 40 MG Citalopram Hydrobromid e 20 MG Citalopram Hydrobromid e 20 MG No Citalopram Hydrobromi de 20 MG Pravastatin Sodium 40 MG Pravastatin Sodium 40 MG No 1{table t} QD Pravastati n Sodium 40 MG Ferrous Sulfate 325 (65 Fe) MG Ferrous Sulfate 325 (65 Fe) MG No 1{table t} QD Ferrous Sulfate 325 (65 Fe) MG Vitamin D3 1000 UNIT Vitamin D3 1000 UNIT No 1{capsu le} QD Vitamin D3 1000 UNIT Levothyroxi ne Sodium 100 MCG Levothyroxi ne Sodium 100 MCG No Levothyrox ine Sodium 100 MCG Coreg 3.125 MG Coreg 3.125 MG No Coreg 3.125 MG Pravastatin Sodium 40 MG Pravastatin Sodium 40 MG No Pravastati n Sodium 40 MG Pantoprazol e Sodium 40 MG Pantoprazol e Sodium 40 MG No 1{table t} QD Pantoprazo le Sodium 40 MG traZODone HCl 100 MG traZODone HCl 100 MG No 2{table t_at_be dtime} QD traZODone HCl 100 MG traZODone HCl 150 MG traZODone HCl 150 MG No traZODone HCl 150 MG Citalopram Hydrobromid e 20 MG Citalopram Hydrobromid e 20 MG No 1{table t} QD Citalopram Hydrobromi de 20 MG Plavix 75 MG Plavix 75 MG No 1{table t} QD Plavix 75 MG Entresto 49-51 MG Entresto 49-51 MG No 1{table t} BID Entresto 49-51 MG Levothyroxi ne Sodium 112 MCG Levothyroxi ne Sodium 112 MCG No Levothyrox ine Sodium 112 MCG Pantoprazol e Sodium 40 MG Pantoprazol e Sodium 40 MG No 1{table t} QD Pantoprazo le Sodium 40 MG Citalopram Hydrobromid e 20 MG Citalopram Hydrobromid e 20 MG No Citalopram Hydrobromi de 20 MG sulfaSALAzi ne 500 MG sulfaSALAzi ne 500 MG No 2{table t} QD sulfaSALAz ine 500 MG Entresto 49-51 MG Entresto 49-51 MG No 1{table t} BID Entresto 49-51 MG Symbicort 160-4.5 MCG/ACT Symbicort 160-4.5 MCG/ACT No 2{puffs } BID Symbicort 160-4.5 MCG/ACT Levothyroxi ne Sodium 100 MCG Levothyroxi ne Sodium 100 MCG No Levothyrox ine Sodium 100 MCG Coreg 3.125 MG Coreg 3.125 MG No Coreg 3.125 MG Ferrous Sulfate 325 (65 Fe) MG Ferrous Sulfate 325 (65 Fe) MG No 1{table t} QD Ferrous Sulfate 325 (65 Fe) MG Pravastatin Sodium 40 MG Pravastatin Sodium 40 MG No Pravastati n Sodium 40 MG Pravastatin Sodium 40 MG Pravastatin Sodium 40 MG No 1{table t} QD Pravastati n Sodium 40 MG ProAir HFA 108 (90 Base) MCG/ACT ProAir HFA 108 (90 Base) MCG/ACT No 2{puffs _as_nee ded} QID ProAir HFA 108 (90 Base) MCG/ACT traZODone HCl 150 MG traZODone HCl 150 MG No traZODone HCl 150 MG traZODone HCl 100 MG traZODone HCl 100 MG No 2{table t_at_be dtime} QD traZODone HCl 100 MG Aspir-81 81 MG Aspir-81 81 MG No 1{table t} QD Aspir-81 81 MG Furosemide 20 MG Furosemide 20 MG No Furosemide 20 MG Pantoprazol e Sodium 40 MG Pantoprazol e Sodium 40 MG No Pantoprazo le Sodium 40 MG Plavix 75 MG Plavix 75 MG No 1{table t} QD Plavix 75 MG busPIRone HCl 10 MG busPIRone HCl 10 MG No busPIRone HCl 10 MG Vitamin D3 1000 UNIT Vitamin D3 1000 UNIT No 1{capsu le} QD Vitamin D3 1000 UNIT Levothyroxi ne Sodium 112 MCG Levothyroxi ne Sodium 112 MCG No Levothyrox ine Sodium 112 MCG Pantoprazol e Sodium 40 MG Pantoprazol e Sodium 40 MG No 1{table t} QD Pantoprazo le Sodium 40 MG Citalopram Hydrobromid e 20 MG Citalopram Hydrobromid e 20 MG No Citalopram Hydrobromi de 20 MG sulfaSALAzi ne 500 MG sulfaSALAzi ne 500 MG No 2{table t} QD sulfaSALAz ine 500 MG Entresto 49-51 MG Entresto 49-51 MG No 1{table t} BID Entresto 49-51 MG Symbicort 160-4.5 MCG/ACT Symbicort 160-4.5 MCG/ACT No 2{puffs } BID Symbicort 160-4.5 MCG/ACT Levothyroxi ne Sodium 100 MCG Levothyroxi ne Sodium 100 MCG No Levothyrox ine Sodium 100 MCG Coreg 3.125 MG Coreg 3.125 MG No Coreg 3.125 MG Ferrous Sulfate 325 (65 Fe) MG Ferrous Sulfate 325 (65 Fe) MG No 1{table t} QD Ferrous Sulfate 325 (65 Fe) MG Pravastatin Sodium 40 MG Pravastatin Sodium 40 MG No Pravastati n Sodium 40 MG Pravastatin Sodium 40 MG Pravastatin Sodium 40 MG No 1{table t} QD Pravastati n Sodium 40 MG ProAir HFA 108 (90 Base) MCG/ACT ProAir HFA 108 (90 Base) MCG/ACT No 2{puffs _as_nee ded} QID ProAir HFA 108 (90 Base) MCG/ACT traZODone HCl 150 MG traZODone HCl 150 MG No traZODone HCl 150 MG traZODone HCl 100 MG traZODone HCl 100 MG No 2{table t_at_be dtime} QD traZODone HCl 100 MG Aspir-81 81 MG Aspir-81 81 MG No 1{table t} QD Aspir-81 81 MG Furosemide 20 MG Furosemide 20 MG No Furosemide 20 MG Pantoprazol e Sodium 40 MG Pantoprazol e Sodium 40 MG No Pantoprazo le Sodium 40 MG Plavix 75 MG Plavix 75 MG No 1{table t} QD Plavix 75 MG busPIRone HCl 10 MG busPIRone HCl 10 MG No busPIRone HCl 10 MG Vitamin D3 1000 UNIT Vitamin D3 1000 UNIT No 1{capsu le} QD Vitamin D3 1000 UNIT Pantoprazol e Sodium 40 MG Pantoprazol e Sodium 40 MG No 1{table t} QD Pantoprazo le Sodium 40 MG Vitamin D3 1000 UNIT Vitamin D3 1000 UNIT No 1{capsu le} QD Vitamin D3 1000 UNIT Entresto 49-51 MG Entresto 49-51 MG No 1{table t} BID Entresto 49-51 MG traZODone HCl 100 MG traZODone HCl 100 MG No 2{table t_at_be dtime} QD traZODone HCl 100 MG Levothyroxi ne Sodium 112 MCG Levothyroxi ne Sodium 112 MCG No Levothyrox ine Sodium 112 MCG Coreg 3.125 MG Coreg 3.125 MG No Coreg 3.125 MG Citalopram Hydrobromid e 20 MG Citalopram Hydrobromid e 20 MG No Citalopram Hydrobromi de 20 MG Levothyroxi ne Sodium 100 MCG Levothyroxi ne Sodium 100 MCG No Levothyrox ine Sodium 100 MCG Ferrous Sulfate 325 (65 Fe) MG Ferrous Sulfate 325 (65 Fe) MG No 1{table t} QD Ferrous Sulfate 325 (65 Fe) MG Pravastatin Sodium 40 MG Pravastatin Sodium 40 MG No 1{table t} QD Pravastati n Sodium 40 MG sulfaSALAzi ne 500 MG sulfaSALAzi ne 500 MG No 2{table t} QD sulfaSALAz ine 500 MG Aspir-81 81 MG Aspir-81 81 MG No 1{table t} QD Aspir-81 81 MG Furosemide 20 MG Furosemide 20 MG No Furosemide 20 MG busPIRone HCl 10 MG busPIRone HCl 10 MG No busPIRone HCl 10 MG Pravastatin Sodium 40 MG Pravastatin Sodium 40 MG No Pravastati n Sodium 40 MG Symbicort 160-4.5 MCG/ACT Symbicort 160-4.5 MCG/ACT No 2{puffs } BID Symbicort 160-4.5 MCG/ACT Pantoprazol e Sodium 40 MG Pantoprazol e Sodium 40 MG No Pantoprazo le Sodium 40 MG Plavix 75 MG Plavix 75 MG No 1{table t} QD Plavix 75 MG ProAir HFA 108 (90 Base) MCG/ACT ProAir HFA 108 (90 Base) MCG/ACT No 2{puffs _as_nee ded} QID ProAir HFA 108 (90 Base) MCG/ACT traZODone HCl 150 MG traZODone HCl 150 MG No traZODone HCl 150 MG Ferrous Sulfate 325 (65 Fe) MG Ferrous Sulfate 325 (65 Fe) MG No 1{table t} QD Ferrous Sulfate 325 (65 Fe) MG Pantoprazol e Sodium 40 MG Pantoprazol e Sodium 40 MG No Pantoprazo le Sodium 40 MG Citalopram Hydrobromid e 20 MG Citalopram Hydrobromid e 20 MG No Citalopram Hydrobromi de 20 MG Coreg 3.125 MG Coreg 3.125 MG No Coreg 3.125 MG Vitamin D3 1000 UNIT Vitamin D3 1000 UNIT No 1{capsu le} QD Vitamin D3 1000 UNIT Entresto 49-51 MG Entresto 49-51 MG No 1{table t} BID Entresto 49-51 MG busPIRone HCl 10 MG busPIRone HCl 10 MG No busPIRone HCl 10 MG Symbicort 160-4.5 MCG/ACT Symbicort 160-4.5 MCG/ACT No 2{puffs } BID Symbicort 160-4.5 MCG/ACT Pravastatin Sodium 40 MG Pravastatin Sodium 40 MG No 1{table t} QD Pravastati n Sodium 40 MG Levothyroxi ne Sodium 100 MCG Levothyroxi ne Sodium 100 MCG No Levothyrox ine Sodium 100 MCG Levothyroxi ne Sodium 112 MCG Levothyroxi ne Sodium 112 MCG No Levothyrox ine Sodium 112 MCG ProAir HFA 108 (90 Base) MCG/ACT ProAir HFA 108 (90 Base) MCG/ACT No 2{puffs _as_nee ded} QID ProAir HFA 108 (90 Base) MCG/ACT sulfaSALAzi ne 500 MG sulfaSALAzi ne 500 MG No 2{table t} QD sulfaSALAz ine 500 MG busPIRone HCl 10 MG busPIRone HCl 10 MG No 1{table t} BID busPIRone HCl 10 MG Aspir-81 81 MG Aspir-81 81 MG No 1{table t} QD Aspir-81 81 MG traZODone HCl 150 MG traZODone HCl 150 MG No traZODone HCl 150 MG traZODone HCl 100 MG traZODone HCl 100 MG No 2{table t_at_be dtime} QD traZODone HCl 100 MG Furosemide 20 MG Furosemide 20 MG No Furosemide 20 MG Plavix 75 MG Plavix 75 MG No 1{table t} QD Plavix 75 MG traZODone HCl 100 MG traZODone HCl 100 MG No traZODone HCl 100 MG Pravastatin Sodium 40 MG Pravastatin Sodium 40 MG No Pravastati n Sodium 40 MG Pantoprazol e Sodium 40 MG Pantoprazol e Sodium 40 MG No 1{table t} QD Pantoprazo le Sodium 40 MG Ferrous Sulfate 325 (65 Fe) MG Ferrous Sulfate 325 (65 Fe) MG No 1{table t} QD Ferrous Sulfate 325 (65 Fe) MG Pantoprazol e Sodium 40 MG Pantoprazol e Sodium 40 MG No Pantoprazo le Sodium 40 MG Citalopram Hydrobromid e 20 MG Citalopram Hydrobromid e 20 MG No Citalopram Hydrobromi de 20 MG Coreg 3.125 MG Coreg 3.125 MG No Coreg 3.125 MG Vitamin D3 1000 UNIT Vitamin D3 1000 UNIT No 1{capsu le} QD Vitamin D3 1000 UNIT Entresto 49-51 MG Entresto 49-51 MG No 1{table t} BID Entresto 49-51 MG busPIRone HCl 10 MG busPIRone HCl 10 MG No busPIRone HCl 10 MG Symbicort 160-4.5 MCG/ACT Symbicort 160-4.5 MCG/ACT No 2{puffs } BID Symbicort 160-4.5 MCG/ACT Pravastatin Sodium 40 MG Pravastatin Sodium 40 MG No 1{table t} QD Pravastati n Sodium 40 MG Levothyroxi ne Sodium 100 MCG Levothyroxi ne Sodium 100 MCG No Levothyrox ine Sodium 100 MCG Levothyroxi ne Sodium 112 MCG Levothyroxi ne Sodium 112 MCG No Levothyrox ine Sodium 112 MCG ProAir HFA 108 (90 Base) MCG/ACT ProAir HFA 108 (90 Base) MCG/ACT No 2{puffs _as_nee ded} QID ProAir HFA 108 (90 Base) MCG/ACT sulfaSALAzi ne 500 MG sulfaSALAzi ne 500 MG No 2{table t} QD sulfaSALAz ine 500 MG busPIRone HCl 10 MG busPIRone HCl 10 MG No 1{table t} BID busPIRone HCl 10 MG Aspir-81 81 MG Aspir-81 81 MG No 1{table t} QD Aspir-81 81 MG traZODone HCl 150 MG traZODone HCl 150 MG No traZODone HCl 150 MG traZODone HCl 100 MG traZODone HCl 100 MG No 2{table t_at_be dtime} QD traZODone HCl 100 MG Furosemide 20 MG Furosemide 20 MG No Furosemide 20 MG Plavix 75 MG Plavix 75 MG No 1{table t} QD Plavix 75 MG traZODone HCl 100 MG traZODone HCl 100 MG No traZODone HCl 100 MG Pravastatin Sodium 40 MG Pravastatin Sodium 40 MG No Pravastati n Sodium 40 MG Pantoprazol e Sodium 40 MG Pantoprazol e Sodium 40 MG No 1{table t} QD Pantoprazo le Sodium 40 MG Ferrous Sulfate 325 (65 Fe) MG Ferrous Sulfate 325 (65 Fe) MG No 1{table t} QD Ferrous Sulfate 325 (65 Fe) MG Pantoprazol e Sodium 40 MG Pantoprazol e Sodium 40 MG No Pantoprazo le Sodium 40 MG Citalopram Hydrobromid e 20 MG Citalopram Hydrobromid e 20 MG No Citalopram Hydrobromi de 20 MG Coreg 3.125 MG Coreg 3.125 MG No Coreg 3.125 MG Vitamin D3 1000 UNIT Vitamin D3 1000 UNIT No 1{capsu le} QD Vitamin D3 1000 UNIT Entresto 49-51 MG Entresto 49-51 MG No 1{table t} BID Entresto 49-51 MG busPIRone HCl 10 MG busPIRone HCl 10 MG No busPIRone HCl 10 MG Symbicort 160-4.5 MCG/ACT Symbicort 160-4.5 MCG/ACT No 2{puffs } BID Symbicort 160-4.5 MCG/ACT Pravastatin Sodium 40 MG Pravastatin Sodium 40 MG No 1{table t} QD Pravastati n Sodium 40 MG Levothyroxi ne Sodium 100 MCG Levothyroxi ne Sodium 100 MCG No Levothyrox ine Sodium 100 MCG Levothyroxi ne Sodium 112 MCG Levothyroxi ne Sodium 112 MCG No Levothyrox ine Sodium 112 MCG ProAir HFA 108 (90 Base) MCG/ACT ProAir HFA 108 (90 Base) MCG/ACT No 2{puffs _as_nee ded} QID ProAir HFA 108 (90 Base) MCG/ACT sulfaSALAzi ne 500 MG sulfaSALAzi ne 500 MG No 2{table t} QD sulfaSALAz ine 500 MG busPIRone HCl 10 MG busPIRone HCl 10 MG No 1{table t} BID busPIRone HCl 10 MG Aspir-81 81 MG Aspir-81 81 MG No 1{table t} QD Aspir-81 81 MG traZODone HCl 150 MG traZODone HCl 150 MG No traZODone HCl 150 MG traZODone HCl 100 MG traZODone HCl 100 MG No 2{table t_at_be dtime} QD traZODone HCl 100 MG Furosemide 20 MG Furosemide 20 MG No Furosemide 20 MG Plavix 75 MG Plavix 75 MG No 1{table t} QD Plavix 75 MG traZODone HCl 100 MG traZODone HCl 100 MG No traZODone HCl 100 MG Pravastatin Sodium 40 MG Pravastatin Sodium 40 MG No Pravastati n Sodium 40 MG Pantoprazol e Sodium 40 MG Pantoprazol e Sodium 40 MG No 1{table t} QD Pantoprazo le Sodium 40 MG busPIRone HCl 10 MG busPIRone HCl 10 MG No busPIRone HCl 10 MG Pravastatin Sodium 40 MG Pravastatin Sodium 40 MG No Pravastati n Sodium 40 MG sulfaSALAzi ne 500 MG sulfaSALAzi ne 500 MG No 2{table t} QD sulfaSALAz ine 500 MG traZODone HCl 150 MG traZODone HCl 150 MG No traZODone HCl 150 MG Pravastatin Sodium 40 MG Pravastatin Sodium 40 MG No 1{table t} QD Pravastati n Sodium 40 MG Pantoprazol e Sodium 40 MG Pantoprazol e Sodium 40 MG No Pantoprazo le Sodium 40 MG Aspir-81 81 MG Aspir-81 81 MG No 1{table t} QD Aspir-81 81 MG Levothyroxi ne Sodium 100 MCG Levothyroxi ne Sodium 100 MCG No Levothyrox ine Sodium 100 MCG Levothyroxi ne Sodium 112 MCG Levothyroxi ne Sodium 112 MCG No QD Levothyrox ine Sodium 112 MCG Coreg 3.125 MG Coreg 3.125 MG No Coreg 3.125 MG Citalopram Hydrobromid e 20 MG Citalopram Hydrobromid e 20 MG No 1{table t} QD Citalopram Hydrobromi de 20 MG Pantoprazol e Sodium 40 MG Pantoprazol e Sodium 40 MG No 1{table t} QD Pantoprazo le Sodium 40 MG Ferrous Sulfate 325 (65 Fe) MG Ferrous Sulfate 325 (65 Fe) MG No 1{table t} QD Ferrous Sulfate 325 (65 Fe) MG Plavix 75 MG Plavix 75 MG No 1{table t} QD Plavix 75 MG busPIRone HCl 10 MG busPIRone HCl 10 MG No 1{table t} BID busPIRone HCl 10 MG traZODone HCl 100 MG traZODone HCl 100 MG No traZODone HCl 100 MG Furosemide 20 MG Furosemide 20 MG No Furosemide 20 MG Levothyroxi ne Sodium 112 MCG Levothyroxi ne Sodium 112 MCG No Levothyrox ine Sodium 112 MCG Vitamin D3 1000 UNIT Vitamin D3 1000 UNIT No 1{capsu le} QD Vitamin D3 1000 UNIT Citalopram Hydrobromid e 20 MG Citalopram Hydrobromid e 20 MG No Citalopram Hydrobromi de 20 MG traZODone HCl 100 MG traZODone HCl 100 MG No 2{table t_at_be dtime} QD traZODone HCl 100 MG ProAir HFA 108 (90 Base) MCG/ACT ProAir HFA 108 (90 Base) MCG/ACT No 2{puffs _as_nee ded} QID ProAir HFA 108 (90 Base) MCG/ACT Symbicort 160-4.5 MCG/ACT Symbicort 160-4.5 MCG/ACT No 2{puffs } BID Symbicort 160-4.5 MCG/ACT Entresto 49-51 MG Entresto 49-51 MG No 1{table t} BID Entresto 49-51 MG Furosemide 20 MG Furosemide 20 MG No 1{table t} QD Furosemide 20 MG busPIRone HCl 10 MG busPIRone HCl 10 MG No busPIRone HCl 10 MG Pravastatin Sodium 40 MG Pravastatin Sodium 40 MG No Pravastati n Sodium 40 MG sulfaSALAzi ne 500 MG sulfaSALAzi ne 500 MG No 2{table t} QD sulfaSALAz ine 500 MG traZODone HCl 150 MG traZODone HCl 150 MG No traZODone HCl 150 MG Pravastatin Sodium 40 MG Pravastatin Sodium 40 MG No 1{table t} QD Pravastati n Sodium 40 MG Pantoprazol e Sodium 40 MG Pantoprazol e Sodium 40 MG No Pantoprazo le Sodium 40 MG Aspir-81 81 MG Aspir-81 81 MG No 1{table t} QD Aspir-81 81 MG Levothyroxi ne Sodium 100 MCG Levothyroxi ne Sodium 100 MCG No Levothyrox ine Sodium 100 MCG Levothyroxi ne Sodium 112 MCG Levothyroxi ne Sodium 112 MCG No QD Levothyrox ine Sodium 112 MCG Coreg 3.125 MG Coreg 3.125 MG No Coreg 3.125 MG Citalopram Hydrobromid e 20 MG Citalopram Hydrobromid e 20 MG No 1{table t} QD Citalopram Hydrobromi de 20 MG Pantoprazol e Sodium 40 MG Pantoprazol e Sodium 40 MG No 1{table t} QD Pantoprazo le Sodium 40 MG Ferrous Sulfate 325 (65 Fe) MG Ferrous Sulfate 325 (65 Fe) MG No 1{table t} QD Ferrous Sulfate 325 (65 Fe) MG Plavix 75 MG Plavix 75 MG No 1{table t} QD Plavix 75 MG busPIRone HCl 10 MG busPIRone HCl 10 MG No 1{table t} BID busPIRone HCl 10 MG traZODone HCl 100 MG traZODone HCl 100 MG No traZODone HCl 100 MG Furosemide 20 MG Furosemide 20 MG No Furosemide 20 MG Levothyroxi ne Sodium 112 MCG Levothyroxi ne Sodium 112 MCG No Levothyrox ine Sodium 112 MCG Vitamin D3 1000 UNIT Vitamin D3 1000 UNIT No 1{capsu le} QD Vitamin D3 1000 UNIT Citalopram Hydrobromid e 20 MG Citalopram Hydrobromid e 20 MG No Citalopram Hydrobromi de 20 MG traZODone HCl 100 MG traZODone HCl 100 MG No 2{table t_at_be dtime} QD traZODone HCl 100 MG ProAir HFA 108 (90 Base) MCG/ACT ProAir HFA 108 (90 Base) MCG/ACT No 2{puffs _as_nee ded} QID ProAir HFA 108 (90 Base) MCG/ACT Symbicort 160-4.5 MCG/ACT Symbicort 160-4.5 MCG/ACT No 2{puffs } BID Symbicort 160-4.5 MCG/ACT Entresto 49-51 MG Entresto 49-51 MG No 1{table t} BID Entresto 49-51 MG Furosemide 20 MG Furosemide 20 MG No 1{table t} QD Furosemide 20 MG Pravastatin Sodium 40 MG Pravastatin Sodium 40 MG No 1{table t} QD Pravastati n Sodium 40 MG Aspir-81 81 MG Aspir-81 81 MG No 1{table t} QD Aspir-81 81 MG Levothyroxi ne Sodium 100 MCG Levothyroxi ne Sodium 100 MCG No Levothyrox ine Sodium 100 MCG Furosemide 20 MG Furosemide 20 MG No Furosemide 20 MG Levothyroxi ne Sodium 112 MCG Levothyroxi ne Sodium 112 MCG No QD Levothyrox ine Sodium 112 MCG Pantoprazol e Sodium 40 MG Pantoprazol e Sodium 40 MG No Pantoprazo le Sodium 40 MG Plavix 75 MG Plavix 75 MG No 1{table t} QD Plavix 75 MG Ferrous Sulfate 325 (65 Fe) MG Ferrous Sulfate 325 (65 Fe) MG No 1{table t} QD Ferrous Sulfate 325 (65 Fe) MG traZODone HCl 100 MG traZODone HCl 100 MG No traZODone HCl 100 MG Vitamin D3 1000 UNIT Vitamin D3 1000 UNIT No 1{capsu le} QD Vitamin D3 1000 UNIT sulfaSALAzi ne 500 MG sulfaSALAzi ne 500 MG No 2{table t} QD sulfaSALAz ine 500 MG traZODone HCl 150 MG traZODone HCl 150 MG No traZODone HCl 150 MG Citalopram Hydrobromid e 20 MG Citalopram Hydrobromid e 20 MG No 1{table t} QD Citalopram Hydrobromi de 20 MG Citalopram Hydrobromid e 20 MG Citalopram Hydrobromid e 20 MG No Citalopram Hydrobromi de 20 MG Levothyroxi ne Sodium 112 MCG Levothyroxi ne Sodium 112 MCG No Levothyrox ine Sodium 112 MCG Pravastatin Sodium 40 MG Pravastatin Sodium 40 MG No Pravastati n Sodium 40 MG busPIRone HCl 10 MG busPIRone HCl 10 MG No 1{table t} BID busPIRone HCl 10 MG busPIRone HCl 10 MG busPIRone HCl 10 MG No busPIRone HCl 10 MG Coreg 3.125 MG Coreg 3.125 MG No Coreg 3.125 MG Pantoprazol e Sodium 40 MG Pantoprazol e Sodium 40 MG No 1{table t} QD Pantoprazo le Sodium 40 MG ProAir HFA 108 (90 Base) MCG/ACT ProAir HFA 108 (90 Base) MCG/ACT No 2{puffs _as_nee ded} QID ProAir HFA 108 (90 Base) MCG/ACT Symbicort 160-4.5 MCG/ACT Symbicort 160-4.5 MCG/ACT No 2{puffs } BID Symbicort 160-4.5 MCG/ACT Entresto 49-51 MG Entresto 49-51 MG No 1{table t} BID Entresto 49-51 MG Furosemide 20 MG Furosemide 20 MG No 1{table t} QD Furosemide 20 MG Aspir-81 81 MG Aspir-81 81 MG No 1{table t} QD Aspir-81 81 MG Levothyroxi ne Sodium 88 MCG Levothyroxi ne Sodium 88 MCG No QD Levothyrox ine Sodium 88 MCG Levothyroxi ne Sodium 100 MCG Levothyroxi ne Sodium 100 MCG No Levothyrox ine Sodium 100 MCG Furosemide 20 MG Furosemide 20 MG No Furosemide 20 MG Pravastatin Sodium 40 MG Pravastatin Sodium 40 MG No 1{table t} QD Pravastati n Sodium 40 MG Pantoprazol e Sodium 40 MG Pantoprazol e Sodium 40 MG No Pantoprazo le Sodium 40 MG Plavix 75 MG Plavix 75 MG No 1{table t} QD Plavix 75 MG Ferrous Sulfate 325 (65 Fe) MG Ferrous Sulfate 325 (65 Fe) MG No 1{table t} QD Ferrous Sulfate 325 (65 Fe) MG traZODone HCl 100 MG traZODone HCl 100 MG No traZODone HCl 100 MG Vitamin D3 1000 UNIT Vitamin D3 1000 UNIT No 1{capsu le} QD Vitamin D3 1000 UNIT sulfaSALAzi ne 500 MG sulfaSALAzi ne 500 MG No 2{table t} QD sulfaSALAz ine 500 MG traZODone HCl 150 MG traZODone HCl 150 MG No traZODone HCl 150 MG Citalopram Hydrobromid e 20 MG Citalopram Hydrobromid e 20 MG No 1{table t} QD Citalopram Hydrobromi de 20 MG Citalopram Hydrobromid e 20 MG Citalopram Hydrobromid e 20 MG No Citalopram Hydrobromi de 20 MG Levothyroxi ne Sodium 112 MCG Levothyroxi ne Sodium 112 MCG No Levothyrox ine Sodium 112 MCG Pravastatin Sodium 40 MG Pravastatin Sodium 40 MG No Pravastati n Sodium 40 MG busPIRone HCl 10 MG busPIRone HCl 10 MG No 1{table t} BID busPIRone HCl 10 MG busPIRone HCl 10 MG busPIRone HCl 10 MG No busPIRone HCl 10 MG Coreg 3.125 MG Coreg 3.125 MG No Coreg 3.125 MG Pantoprazol e Sodium 40 MG Pantoprazol e Sodium 40 MG No 1{table t} QD Pantoprazo le Sodium 40 MG ProAir HFA 108 (90 Base) MCG/ACT ProAir HFA 108 (90 Base) MCG/ACT No 2{puffs _as_nee ded} QID ProAir HFA 108 (90 Base) MCG/ACT Symbicort 160-4.5 MCG/ACT Symbicort 160-4.5 MCG/ACT No 2{puffs } BID Symbicort 160-4.5 MCG/ACT Entresto 49-51 MG Entresto 49-51 MG No 1{table t} BID Entresto 49-51 MG Furosemide 20 MG Furosemide 20 MG No 1{table t} QD Furosemide 20 MG Pantoprazol e Sodium 40 MG Pantoprazol e Sodium 40 MG No Pantoprazo le Sodium 40 MG traZODone HCl 150 MG traZODone HCl 150 MG No traZODone HCl 150 MG Pravastatin Sodium 40 MG Pravastatin Sodium 40 MG No Pravastati n Sodium 40 MG Levothyroxi ne Sodium 100 MCG Levothyroxi ne Sodium 100 MCG No Levothyrox ine Sodium 100 MCG Citalopram Hydrobromid e 20 MG Citalopram Hydrobromid e 20 MG No Citalopram Hydrobromi de 20 MG traZODone HCl 300 MG traZODone HCl 300 MG No 1{table t_at_be dtime} QD traZODone HCl 300 MG Levothyroxi ne Sodium 112 MCG Levothyroxi ne Sodium 112 MCG No Levothyrox ine Sodium 112 MCG ProAir HFA 108 (90 Base) MCG/ACT ProAir HFA 108 (90 Base) MCG/ACT No 2{puffs _as_nee ded} QID ProAir HFA 108 (90 Base) MCG/ACT Citalopram Hydrobromid e 20 MG Citalopram Hydrobromid e 20 MG No 1{table t} QD Citalopram Hydrobromi de 20 MG Entresto 49-51 MG Entresto 49-51 MG No 1{table t} BID Entresto 49-51 MG Vitamin D3 1000 UNIT Vitamin D3 1000 UNIT No 1{capsu le} QD Vitamin D3 1000 UNIT Aspir-81 81 MG Aspir-81 81 MG No 1{table t} QD Aspir-81 81 MG busPIRone HCl 10 MG busPIRone HCl 10 MG No busPIRone HCl 10 MG Pantoprazol e Sodium 40 MG Pantoprazol e Sodium 40 MG No 1{table t} QD Pantoprazo le Sodium 40 MG busPIRone HCl 10 MG busPIRone HCl 10 MG No 1{table t} BID busPIRone HCl 10 MG traZODone HCl 100 MG traZODone HCl 100 MG No traZODone HCl 100 MG sulfaSALAzi ne 500 MG sulfaSALAzi ne 500 MG No 2{table t} QD sulfaSALAz ine 500 MG Symbicort 160-4.5 MCG/ACT Symbicort 160-4.5 MCG/ACT No 2{puffs } BID Symbicort 160-4.5 MCG/ACT Pravastatin Sodium 40 MG Pravastatin Sodium 40 MG No 1{table t} QD Pravastati n Sodium 40 MG Furosemide 20 MG Furosemide 20 MG No 1{table t} QD Furosemide 20 MG Furosemide 20 MG Furosemide 20 MG No Furosemide 20 MG Coreg 3.125 MG Coreg 3.125 MG No Coreg 3.125 MG Ferrous Sulfate 325 (65 Fe) MG Ferrous Sulfate 325 (65 Fe) MG No 1{table t} BID Ferrous Sulfate 325 (65 Fe) MG Plavix 75 MG Plavix 75 MG No 1{table t} QD Plavix 75 MG Levothyroxi ne Sodium 88 MCG Levothyroxi ne Sodium 88 MCG No QD Levothyrox ine Sodium 88 MCG Pantoprazol e Sodium 40 MG Pantoprazol e Sodium 40 MG No Pantoprazo le Sodium 40 MG traZODone HCl 150 MG traZODone HCl 150 MG No traZODone HCl 150 MG Pravastatin Sodium 40 MG Pravastatin Sodium 40 MG No Pravastati n Sodium 40 MG Levothyroxi ne Sodium 100 MCG Levothyroxi ne Sodium 100 MCG No Levothyrox ine Sodium 100 MCG Citalopram Hydrobromid e 20 MG Citalopram Hydrobromid e 20 MG No Citalopram Hydrobromi de 20 MG traZODone HCl 300 MG traZODone HCl 300 MG No 1{table t_at_be dtime} QD traZODone HCl 300 MG Levothyroxi ne Sodium 112 MCG Levothyroxi ne Sodium 112 MCG No Levothyrox ine Sodium 112 MCG ProAir HFA 108 (90 Base) MCG/ACT ProAir HFA 108 (90 Base) MCG/ACT No 2{puffs _as_nee ded} QID ProAir HFA 108 (90 Base) MCG/ACT Citalopram Hydrobromid e 20 MG Citalopram Hydrobromid e 20 MG No 1{table t} QD Citalopram Hydrobromi de 20 MG Entresto 49-51 MG Entresto 49-51 MG No 1{table t} BID Entresto 49-51 MG Vitamin D3 1000 UNIT Vitamin D3 1000 UNIT No 1{capsu le} QD Vitamin D3 1000 UNIT Aspir-81 81 MG Aspir-81 81 MG No 1{table t} QD Aspir-81 81 MG busPIRone HCl 10 MG busPIRone HCl 10 MG No busPIRone HCl 10 MG Pantoprazol e Sodium 40 MG Pantoprazol e Sodium 40 MG No 1{table t} QD Pantoprazo le Sodium 40 MG busPIRone HCl 10 MG busPIRone HCl 10 MG No 1{table t} BID busPIRone HCl 10 MG traZODone HCl 100 MG traZODone HCl 100 MG No traZODone HCl 100 MG sulfaSALAzi ne 500 MG sulfaSALAzi ne 500 MG No 2{table t} QD sulfaSALAz ine 500 MG Symbicort 160-4.5 MCG/ACT Symbicort 160-4.5 MCG/ACT No 2{puffs } BID Symbicort 160-4.5 MCG/ACT Pravastatin Sodium 40 MG Pravastatin Sodium 40 MG No 1{table t} QD Pravastati n Sodium 40 MG Furosemide 20 MG Furosemide 20 MG No 1{table t} QD Furosemide 20 MG Furosemide 20 MG Furosemide 20 MG No Furosemide 20 MG Coreg 3.125 MG Coreg 3.125 MG No Coreg 3.125 MG Ferrous Sulfate 325 (65 Fe) MG Ferrous Sulfate 325 (65 Fe) MG No 1{table t} BID Ferrous Sulfate 325 (65 Fe) MG Plavix 75 MG Plavix 75 MG No 1{table t} QD Plavix 75 MG Levothyroxi ne Sodium 88 MCG Levothyroxi ne Sodium 88 MCG No QD Levothyrox ine Sodium 88 MCG traZODone HCl 150 MG traZODone HCl 150 MG No traZODone HCl 150 MG Pravastatin Sodium 40 MG Pravastatin Sodium 40 MG No Pravastati n Sodium 40 MG Pravastatin Sodium 40 MG Pravastatin Sodium 40 MG No 1{table t} QD Pravastati n Sodium 40 MG sulfaSALAzi ne 500 MG sulfaSALAzi ne 500 MG No 2{table t} QD sulfaSALAz ine 500 MG traZODone HCl 300 MG traZODone HCl 300 MG No 1{table t_at_be dtime} QD traZODone HCl 300 MG Citalopram Hydrobromid e 20 MG Citalopram Hydrobromid e 20 MG No Citalopram Hydrobromi de 20 MG Pantoprazol e Sodium 40 MG Pantoprazol e Sodium 40 MG No Pantoprazo le Sodium 40 MG Levothyroxi ne Sodium 112 MCG Levothyroxi ne Sodium 112 MCG No Levothyrox ine Sodium 112 MCG Levothyroxi ne Sodium 100 MCG Levothyroxi ne Sodium 100 MCG No Levothyrox ine Sodium 100 MCG Entresto 49-51 MG Entresto 49-51 MG No 1{table t} BID Entresto 49-51 MG Furosemide 20 MG Furosemide 20 MG No 1{table t} QD Furosemide 20 MG Vitamin D3 1000 UNIT Vitamin D3 1000 UNIT No 1{capsu le} QD Vitamin D3 1000 UNIT busPIRone HCl 10 MG busPIRone HCl 10 MG No 1{table t} BID busPIRone HCl 10 MG traZODone HCl 100 MG traZODone HCl 100 MG No traZODone HCl 100 MG Symbicort 160-4.5 MCG/ACT Symbicort 160-4.5 MCG/ACT No 2{puffs } BID Symbicort 160-4.5 MCG/ACT Citalopram Hydrobromid e 20 MG Citalopram Hydrobromid e 20 MG No 1{table t} QD Citalopram Hydrobromi de 20 MG ProAir HFA 108 (90 Base) MCG/ACT ProAir HFA 108 (90 Base) MCG/ACT No 2{puffs _as_nee ded} QID ProAir HFA 108 (90 Base) MCG/ACT busPIRone HCl 10 MG busPIRone HCl 10 MG No busPIRone HCl 10 MG Aspir-81 81 MG Aspir-81 81 MG No 1{table t} QD Aspir-81 81 MG Pantoprazol e Sodium 40 MG Pantoprazol e Sodium 40 MG No 1{table t} QD Pantoprazo le Sodium 40 MG Furosemide 20 MG Furosemide 20 MG No Furosemide 20 MG Coreg 3.125 MG Coreg 3.125 MG No Coreg 3.125 MG Ferrous Sulfate 325 (65 Fe) MG Ferrous Sulfate 325 (65 Fe) MG No 1{table t} BID Ferrous Sulfate 325 (65 Fe) MG Plavix 75 MG Plavix 75 MG No 1{table t} QD Plavix 75 MG Levothyroxi ne Sodium 88 MCG Levothyroxi ne Sodium 88 MCG No QD Levothyrox ine Sodium 88 MCG traZODone HCl 150 MG traZODone HCl 150 MG No traZODone HCl 150 MG Pravastatin Sodium 40 MG Pravastatin Sodium 40 MG No Pravastati n Sodium 40 MG Pravastatin Sodium 40 MG Pravastatin Sodium 40 MG No 1{table t} QD Pravastati n Sodium 40 MG sulfaSALAzi ne 500 MG sulfaSALAzi ne 500 MG No 2{table t} QD sulfaSALAz ine 500 MG traZODone HCl 300 MG traZODone HCl 300 MG No 1{table t_at_be dtime} QD traZODone HCl 300 MG Citalopram Hydrobromid e 20 MG Citalopram Hydrobromid e 20 MG No Citalopram Hydrobromi de 20 MG Pantoprazol e Sodium 40 MG Pantoprazol e Sodium 40 MG No Pantoprazo le Sodium 40 MG Levothyroxi ne Sodium 112 MCG Levothyroxi ne Sodium 112 MCG No Levothyrox ine Sodium 112 MCG Levothyroxi ne Sodium 100 MCG Levothyroxi ne Sodium 100 MCG No Levothyrox ine Sodium 100 MCG Entresto 49-51 MG Entresto 49-51 MG No 1{table t} BID Entresto 49-51 MG Furosemide 20 MG Furosemide 20 MG No 1{table t} QD Furosemide 20 MG Vitamin D3 1000 UNIT Vitamin D3 1000 UNIT No 1{capsu le} QD Vitamin D3 1000 UNIT busPIRone HCl 10 MG busPIRone HCl 10 MG No 1{table t} BID busPIRone HCl 10 MG traZODone HCl 100 MG traZODone HCl 100 MG No traZODone HCl 100 MG Symbicort 160-4.5 MCG/ACT Symbicort 160-4.5 MCG/ACT No 2{puffs } BID Symbicort 160-4.5 MCG/ACT Citalopram Hydrobromid e 20 MG Citalopram Hydrobromid e 20 MG No 1{table t} QD Citalopram Hydrobromi de 20 MG ProAir HFA 108 (90 Base) MCG/ACT ProAir HFA 108 (90 Base) MCG/ACT No 2{puffs _as_nee ded} QID ProAir HFA 108 (90 Base) MCG/ACT busPIRone HCl 10 MG busPIRone HCl 10 MG No busPIRone HCl 10 MG Aspir-81 81 MG Aspir-81 81 MG No 1{table t} QD Aspir-81 81 MG Pantoprazol e Sodium 40 MG Pantoprazol e Sodium 40 MG No 1{table t} QD Pantoprazo le Sodium 40 MG Furosemide 20 MG Furosemide 20 MG No Furosemide 20 MG Coreg 3.125 MG Coreg 3.125 MG No Coreg 3.125 MG Ferrous Sulfate 325 (65 Fe) MG Ferrous Sulfate 325 (65 Fe) MG No 1{table t} BID Ferrous Sulfate 325 (65 Fe) MG Plavix 75 MG Plavix 75 MG No 1{table t} QD Plavix 75 MG Levothyroxi ne Sodium 88 MCG Levothyroxi ne Sodium 88 MCG No QD Levothyrox ine Sodium 88 MCG traZODone HCl 150 MG traZODone HCl 150 MG No traZODone HCl 150 MG Pravastatin Sodium 40 MG Pravastatin Sodium 40 MG No Pravastati n Sodium 40 MG Pravastatin Sodium 40 MG Pravastatin Sodium 40 MG No 1{table t} QD Pravastati n Sodium 40 MG sulfaSALAzi ne 500 MG sulfaSALAzi ne 500 MG No 2{table t} QD sulfaSALAz ine 500 MG traZODone HCl 300 MG traZODone HCl 300 MG No 1{table t_at_be dtime} QD traZODone HCl 300 MG Citalopram Hydrobromid e 20 MG Citalopram Hydrobromid e 20 MG No Citalopram Hydrobromi de 20 MG Pantoprazol e Sodium 40 MG Pantoprazol e Sodium 40 MG No Pantoprazo le Sodium 40 MG Levothyroxi ne Sodium 112 MCG Levothyroxi ne Sodium 112 MCG No Levothyrox ine Sodium 112 MCG Levothyroxi ne Sodium 100 MCG Levothyroxi ne Sodium 100 MCG No Levothyrox ine Sodium 100 MCG Entresto 49-51 MG Entresto 49-51 MG No 1{table t} BID Entresto 49-51 MG Furosemide 20 MG Furosemide 20 MG No 1{table t} QD Furosemide 20 MG Vitamin D3 1000 UNIT Vitamin D3 1000 UNIT No 1{capsu le} QD Vitamin D3 1000 UNIT busPIRone HCl 10 MG busPIRone HCl 10 MG No 1{table t} BID busPIRone HCl 10 MG traZODone HCl 100 MG traZODone HCl 100 MG No traZODone HCl 100 MG Symbicort 160-4.5 MCG/ACT Symbicort 160-4.5 MCG/ACT No 2{puffs } BID Symbicort 160-4.5 MCG/ACT Citalopram Hydrobromid e 20 MG Citalopram Hydrobromid e 20 MG No 1{table t} QD Citalopram Hydrobromi de 20 MG ProAir HFA 108 (90 Base) MCG/ACT ProAir HFA 108 (90 Base) MCG/ACT No 2{puffs _as_nee ded} QID ProAir HFA 108 (90 Base) MCG/ACT busPIRone HCl 10 MG busPIRone HCl 10 MG No busPIRone HCl 10 MG Aspir-81 81 MG Aspir-81 81 MG No 1{table t} QD Aspir-81 81 MG Pantoprazol e Sodium 40 MG Pantoprazol e Sodium 40 MG No 1{table t} QD Pantoprazo le Sodium 40 MG Furosemide 20 MG Furosemide 20 MG No Furosemide 20 MG Coreg 3.125 MG Coreg 3.125 MG No Coreg 3.125 MG Ferrous Sulfate 325 (65 Fe) MG Ferrous Sulfate 325 (65 Fe) MG No 1{table t} BID Ferrous Sulfate 325 (65 Fe) MG Plavix 75 MG Plavix 75 MG No 1{table t} QD Plavix 75 MG Levothyroxi ne Sodium 88 MCG Levothyroxi ne Sodium 88 MCG No QD Levothyrox ine Sodium 88 MCG Pantoprazol e Sodium 40 MG Pantoprazol e Sodium 40 MG No Pantoprazo le Sodium 40 MG Pravastatin Sodium 40 MG Pravastatin Sodium 40 MG No Pravastati n Sodium 40 MG traZODone HCl 150 MG traZODone HCl 150 MG No traZODone HCl 150 MG sulfaSALAzi ne 500 MG sulfaSALAzi ne 500 MG No 2{table t} QD sulfaSALAz ine 500 MG Levothyroxi ne Sodium 100 MCG Levothyroxi ne Sodium 100 MCG No Levothyrox ine Sodium 100 MCG Citalopram Hydrobromid e 20 MG Citalopram Hydrobromid e 20 MG No Citalopram Hydrobromi de 20 MG traZODone HCl 300 MG traZODone HCl 300 MG No 1{table t_at_be dtime} QD traZODone HCl 300 MG Levothyroxi ne Sodium 112 MCG Levothyroxi ne Sodium 112 MCG No Levothyrox ine Sodium 112 MCG ProAir HFA 108 (90 Base) MCG/ACT ProAir HFA 108 (90 Base) MCG/ACT No 2{puffs _as_nee ded} QID ProAir HFA 108 (90 Base) MCG/ACT Entresto 49-51 MG Entresto 49-51 MG No 1{table t} BID Entresto 49-51 MG Furosemide 20 MG Furosemide 20 MG No 1{table t} QD Furosemide 20 MG Vitamin D3 1000 UNIT Vitamin D3 1000 UNIT No 1{capsu le} QD Vitamin D3 1000 UNIT Aspir-81 81 MG Aspir-81 81 MG No 1{table t} QD Aspir-81 81 MG traZODone HCl 100 MG traZODone HCl 100 MG No traZODone HCl 100 MG Symbicort 160-4.5 MCG/ACT Symbicort 160-4.5 MCG/ACT No 2{puffs } BID Symbicort 160-4.5 MCG/ACT Citalopram Hydrobromid e 20 MG Citalopram Hydrobromid e 20 MG No 1{table t} QD Citalopram Hydrobromi de 20 MG busPIRone HCl 10 MG busPIRone HCl 10 MG No 1{table t} BID busPIRone HCl 10 MG busPIRone HCl 10 MG busPIRone HCl 10 MG No busPIRone HCl 10 MG Pravastatin Sodium 40 MG Pravastatin Sodium 40 MG No 1{table t} QD Pravastati n Sodium 40 MG Pantoprazol e Sodium 40 MG Pantoprazol e Sodium 40 MG No 1{table t} QD Pantoprazo le Sodium 40 MG Furosemide 20 MG Furosemide 20 MG No Furosemide 20 MG Coreg 3.125 MG Coreg 3.125 MG No Coreg 3.125 MG Ferrous Sulfate 325 (65 Fe) MG Ferrous Sulfate 325 (65 Fe) MG No 1{table t} BID Ferrous Sulfate 325 (65 Fe) MG Plavix 75 MG Plavix 75 MG No 1{table t} QD Plavix 75 MG Levothyroxi ne Sodium 88 MCG Levothyroxi ne Sodium 88 MCG No QD Levothyrox ine Sodium 88 MCG Citalopram Hydrobromid e 20 MG Citalopram Hydrobromid e 20 MG No 1{table t} QD Citalopram Hydrobromi de 20 MG Citalopram Hydrobromid e 20 MG Citalopram Hydrobromid e 20 MG No Citalopram Hydrobromi de 20 MG Levothyroxi ne Sodium 88 MCG Levothyroxi ne Sodium 88 MCG No Levothyrox ine Sodium 88 MCG busPIRone HCl 10 MG busPIRone HCl 10 MG No busPIRone HCl 10 MG Coreg 3.125 MG Coreg 3.125 MG No Coreg 3.125 MG Pantoprazol e Sodium 40 MG Pantoprazol e Sodium 40 MG No Pantoprazo le Sodium 40 MG Symbicort 160-4.5 MCG/ACT Symbicort 160-4.5 MCG/ACT No 2{puffs } BID Symbicort 160-4.5 MCG/ACT Furosemide 20 MG Furosemide 20 MG No 1{table t} QD Furosemide 20 MG ProAir HFA 108 (90 Base) MCG/ACT ProAir HFA 108 (90 Base) MCG/ACT No 2{puffs _as_nee ded} QID ProAir HFA 108 (90 Base) MCG/ACT Tylenol Tylenol No Tylenol Plavix 75 MG Plavix 75 MG No 1{table t} QD Plavix 75 MG Entresto 24-26 MG Entresto 24-26 MG No 1{table t} QD Entresto 24-26 MG Ezetimibe 10 MG Ezetimibe 10 MG No 1{table t} QD Ezetimibe 10 MG Pantoprazol e Sodium 40 MG Pantoprazol e Sodium 40 MG No 1{table t} QD Pantoprazo le Sodium 40 MG Aspir-81 81 MG Aspir-81 81 MG No 1{table t} QD Aspir-81 81 MG Levsin 0.125 MG Levsin 0.125 MG No 1{table t_as_ne eded} Levsin 0.125 MG Levothyroxi ne Sodium 75 MCG Levothyroxi ne Sodium 75 MCG No QD Levothyrox ine Sodium 75 MCG busPIRone HCl 10 MG busPIRone HCl 10 MG No 1{table t} BID busPIRone HCl 10 MG Ferrous Sulfate 325 (65 Fe) MG Ferrous Sulfate 325 (65 Fe) MG No 1{table t} BID Ferrous Sulfate 325 (65 Fe) MG Pravastatin Sodium 40 MG Pravastatin Sodium 40 MG No 1{table t} QD Pravastati n Sodium 40 MG Citalopram Hydrobromid e 20 MG Citalopram Hydrobromid e 20 MG No 1{table t} QD Citalopram Hydrobromi de 20 MG Citalopram Hydrobromid e 20 MG Citalopram Hydrobromid e 20 MG No Citalopram Hydrobromi de 20 MG Levothyroxi ne Sodium 88 MCG Levothyroxi ne Sodium 88 MCG No Levothyrox ine Sodium 88 MCG busPIRone HCl 10 MG busPIRone HCl 10 MG No busPIRone HCl 10 MG Coreg 3.125 MG Coreg 3.125 MG No Coreg 3.125 MG Pantoprazol e Sodium 40 MG Pantoprazol e Sodium 40 MG No Pantoprazo le Sodium 40 MG Symbicort 160-4.5 MCG/ACT Symbicort 160-4.5 MCG/ACT No 2{puffs } BID Symbicort 160-4.5 MCG/ACT Furosemide 20 MG Furosemide 20 MG No 1{table t} QD Furosemide 20 MG ProAir HFA 108 (90 Base) MCG/ACT ProAir HFA 108 (90 Base) MCG/ACT No 2{puffs _as_nee ded} QID ProAir HFA 108 (90 Base) MCG/ACT Tylenol Tylenol No Tylenol Plavix 75 MG Plavix 75 MG No 1{table t} QD Plavix 75 MG Entresto 24-26 MG Entresto 24-26 MG No 1{table t} QD Entresto 24-26 MG Ezetimibe 10 MG Ezetimibe 10 MG No 1{table t} QD Ezetimibe 10 MG Pantoprazol e Sodium 40 MG Pantoprazol e Sodium 40 MG No 1{table t} QD Pantoprazo le Sodium 40 MG Aspir-81 81 MG Aspir-81 81 MG No 1{table t} QD Aspir-81 81 MG Levsin 0.125 MG Levsin 0.125 MG No 1{table t_as_ne eded} Levsin 0.125 MG Levothyroxi ne Sodium 75 MCG Levothyroxi ne Sodium 75 MCG No QD Levothyrox ine Sodium 75 MCG busPIRone HCl 10 MG busPIRone HCl 10 MG No 1{table t} BID busPIRone HCl 10 MG Ferrous Sulfate 325 (65 Fe) MG Ferrous Sulfate 325 (65 Fe) MG No 1{table t} BID Ferrous Sulfate 325 (65 Fe) MG Pravastatin Sodium 40 MG Pravastatin Sodium 40 MG No 1{table t} QD Pravastati n Sodium 40 MG Citalopram Hydrobromid e 20 MG Citalopram Hydrobromid e 20 MG No 1{table t} QD Citalopram Hydrobromi de 20 MG Citalopram Hydrobromid e 20 MG Citalopram Hydrobromid e 20 MG No Citalopram Hydrobromi de 20 MG Levothyroxi ne Sodium 88 MCG Levothyroxi ne Sodium 88 MCG No Levothyrox ine Sodium 88 MCG busPIRone HCl 10 MG busPIRone HCl 10 MG No busPIRone HCl 10 MG Coreg 3.125 MG Coreg 3.125 MG No Coreg 3.125 MG Pantoprazol e Sodium 40 MG Pantoprazol e Sodium 40 MG No Pantoprazo le Sodium 40 MG Symbicort 160-4.5 MCG/ACT Symbicort 160-4.5 MCG/ACT No 2{puffs } BID Symbicort 160-4.5 MCG/ACT Furosemide 20 MG Furosemide 20 MG No 1{table t} QD Furosemide 20 MG ProAir HFA 108 (90 Base) MCG/ACT ProAir HFA 108 (90 Base) MCG/ACT No 2{puffs _as_nee ded} QID ProAir HFA 108 (90 Base) MCG/ACT Tylenol Tylenol No Tylenol Plavix 75 MG Plavix 75 MG No 1{table t} QD Plavix 75 MG Entresto 24-26 MG Entresto 24-26 MG No 1{table t} QD Entresto 24-26 MG Ezetimibe 10 MG Ezetimibe 10 MG No 1{table t} QD Ezetimibe 10 MG Plavix Plavix Yes Juice Mcmullen 1 tablet [facility] Citalopram Hydrobromid e Citalopram Hydrobromid e Yes Juice Mcmullen 1 tablet [facility] Symbicort Symbicort Yes Juice Mcmullen 2 puffs [facility] Levothyroxi ne Sodium Levothyroxi ne Sodium Yes Juice Mcmullen 1 tablet on an empty stomach in the morning [facility] Ferrous Sulfate Ferrous Sulfate Yes Juice Mcmullen 1 tablet [facility] ProAir HFA ProAir HFA Yes Juice Mcmullen 2 puffs as needed [facility] BusPIRone HCl BusPIRone HCl Yes Juice Mcmullen 1 tablet [facility] Vitamin D3 Vitamin D3 Yes Juice Mcmullen 1 capsule [facility] Protonix Protonix Yes Juice Mcmullen 1 tablet [facility] Trazodone HCl Trazodone HCl Yes Juice Mcmullen 1 tablet at bedtime [facility] Trazodone HCl Trazodone HCl Yes Juice Mcmullen take 1 tablet one time daily at bedtime [facility] Coreg Coreg Yes Juice Mcmullen not defined [facility] Furosemide Furosemide Yes Juice Mcmullen 1 tablet [facility] Aspir-81 Aspir-81 Yes Juice Mcmullen 1 tablet [facility] Pravastatin Sodium Pravastatin Sodium Yes Juice Mcmullen 1 tablet [facility] Sulfasalazi ne Sulfasalazi ne Yes Juice Mcmullen 2 tablet [facility] Entresto Entresto Yes Juice Mcmullen 1 tablet [facility] Pantoprazol e Sodium Pantoprazol e Sodium Yes Juice Mcmullen 1 tablet [facility] Pantoprazol e Sodium 40 MG Pantoprazol e Sodium 40 MG No 1{table t} QD Pantoprazo le Sodium 40 MG Aspir-81 81 MG Aspir-81 81 MG No 1{table t} QD Aspir-81 81 MG Levsin 0.125 MG Levsin 0.125 MG No 1{table t_as_ne eded} Levsin 0.125 MG Levothyroxi ne Sodium 75 MCG Levothyroxi ne Sodium 75 MCG No QD Levothyrox ine Sodium 75 MCG busPIRone HCl 10 MG busPIRone HCl 10 MG No 1{table t} BID busPIRone HCl 10 MG Ferrous Sulfate 325 (65 Fe) MG Ferrous Sulfate 325 (65 Fe) MG No 1{table t} BID Ferrous Sulfate 325 (65 Fe) MG Pravastatin Sodium 40 MG Pravastatin Sodium 40 MG No 1{table t} QD Pravastati n Sodium 40 MG Citalopram Hydrobromid e 20 MG Citalopram Hydrobromid e 20 MG No 1{table t} QD Citalopram Hydrobromi de 20 MG Citalopram Hydrobromid e 20 MG Citalopram Hydrobromid e 20 MG No Citalopram Hydrobromi de 20 MG Aspir-81 81 MG Aspir-81 81 MG No 1{table t} QD Aspir-81 81 MG Levothyroxi ne Sodium 88 MCG Levothyroxi ne Sodium 88 MCG No Levothyrox ine Sodium 88 MCG busPIRone HCl 10 MG busPIRone HCl 10 MG No busPIRone HCl 10 MG Coreg 3.125 MG Coreg 3.125 MG No Coreg 3.125 MG Pantoprazol e Sodium 40 MG Pantoprazol e Sodium 40 MG No Pantoprazo le Sodium 40 MG Symbicort 160-4.5 MCG/ACT Symbicort 160-4.5 MCG/ACT No 2{puffs } BID Symbicort 160-4.5 MCG/ACT Furosemide 20 MG Furosemide 20 MG No 1{table t} QD Furosemide 20 MG ProAir HFA 108 (90 Base) MCG/ACT ProAir HFA 108 (90 Base) MCG/ACT No 2{puffs _as_nee ded} QID ProAir HFA 108 (90 Base) MCG/ACT Tylenol Tylenol No Tylenol Plavix 75 MG Plavix 75 MG No 1{table t} QD Plavix 75 MG Entresto 24-26 MG Entresto 24-26 MG No 1{table t} QD Entresto 24-26 MG Ezetimibe 10 MG Ezetimibe 10 MG No 1{table t} QD Ezetimibe 10 MG Pantoprazol e Sodium 40 MG Pantoprazol e Sodium 40 MG No 1{table t} QD Pantoprazo le Sodium 40 MG Aspir-81 81 MG Aspir-81 81 MG No 1{table t} QD Aspir-81 81 MG Levsin 0.125 MG Levsin 0.125 MG No 1{table t_as_ne eded} Levsin 0.125 MG Levothyroxi ne Sodium 75 MCG Levothyroxi ne Sodium 75 MCG No QD Levothyrox ine Sodium 75 MCG busPIRone HCl 10 MG busPIRone HCl 10 MG No 1{table t} BID busPIRone HCl 10 MG Ferrous Sulfate 325 (65 Fe) MG Ferrous Sulfate 325 (65 Fe) MG No 1{table t} BID Ferrous Sulfate 325 (65 Fe) MG Pravastatin Sodium 40 MG Pravastatin Sodium 40 MG No 1{table t} QD Pravastati n Sodium 40 MG Levothyroxi ne Sodium 88 MCG Levothyroxi ne Sodium 88 MCG No QD Levothyrox ine Sodium 88 MCG Levothyroxi ne Sodium 100 MCG Levothyroxi ne Sodium 100 MCG No Levothyrox ine Sodium 100 MCG Citalopram Hydrobromid e 20 MG Citalopram Hydrobromid e 20 MG No 1{table t} QD Citalopram Hydrobromi de 20 MG Citalopram Hydrobromid e 20 MG Citalopram Hydrobromid e 20 MG No Citalopram Hydrobromi de 20 MG Levothyroxi ne Sodium 88 MCG Levothyroxi ne Sodium 88 MCG No Levothyrox ine Sodium 88 MCG busPIRone HCl 10 MG busPIRone HCl 10 MG No busPIRone HCl 10 MG Coreg 3.125 MG Coreg 3.125 MG No Coreg 3.125 MG Pantoprazol e Sodium 40 MG Pantoprazol e Sodium 40 MG No Pantoprazo le Sodium 40 MG Symbicort 160-4.5 MCG/ACT Symbicort 160-4.5 MCG/ACT No 2{puffs } BID Symbicort 160-4.5 MCG/ACT Furosemide 20 MG Furosemide 20 MG No Furosemide 20 MG Furosemide 20 MG Furosemide 20 MG No 1{table t} QD Furosemide 20 MG ProAir HFA 108 (90 Base) MCG/ACT ProAir HFA 108 (90 Base) MCG/ACT No 2{puffs _as_nee ded} QID ProAir HFA 108 (90 Base) MCG/ACT Tylenol Tylenol No Tylenol Plavix 75 MG Plavix 75 MG No 1{table t} QD Plavix 75 MG Entresto 24-26 MG Entresto 24-26 MG No 1{table t} QD Entresto 24-26 MG Ezetimibe 10 MG Ezetimibe 10 MG No 1{table t} QD Ezetimibe 10 MG Pantoprazol e Sodium 40 MG Pantoprazol e Sodium 40 MG No 1{table t} QD Pantoprazo le Sodium 40 MG Aspir-81 81 MG Aspir-81 81 MG No 1{table t} QD Aspir-81 81 MG Levsin 0.125 MG Levsin 0.125 MG No 1{table t_as_ne eded} Levsin 0.125 MG Pravastatin Sodium 40 MG Pravastatin Sodium 40 MG No 1{table t} QD Pravastati n Sodium 40 MG Levothyroxi ne Sodium 75 MCG Levothyroxi ne Sodium 75 MCG No QD Levothyrox ine Sodium 75 MCG busPIRone HCl 10 MG busPIRone HCl 10 MG No 1{table t} BID busPIRone HCl 10 MG Ferrous Sulfate 325 (65 Fe) MG Ferrous Sulfate 325 (65 Fe) MG No 1{table t} BID Ferrous Sulfate 325 (65 Fe) MG Pravastatin Sodium 40 MG Pravastatin Sodium 40 MG No 1{table t} QD Pravastati n Sodium 40 MG Ezetimibe 10 MG Ezetimibe 10 MG No 1{table t} QD Ezetimibe 10 MG Pravastatin Sodium 40 MG Pravastatin Sodium 40 MG No 1{table t} QD Pravastati n Sodium 40 MG Tylenol Tylenol No Tylenol Pantoprazol e Sodium 40 MG Pantoprazol e Sodium 40 MG No Pantoprazo le Sodium 40 MG ProAir HFA 108 (90 Base) MCG/ACT ProAir HFA 108 (90 Base) MCG/ACT No 2{puffs _as_nee ded} QID ProAir HFA 108 (90 Base) MCG/ACT Aspir-81 81 MG Aspir-81 81 MG No 1{table t} QD Aspir-81 81 MG Furosemide 20 MG Furosemide 20 MG No 1{table t} QD Furosemide 20 MG Plavix 75 MG Plavix 75 MG No 1{table t} QD Plavix 75 MG Coreg 3.125 MG Coreg 3.125 MG No Coreg 3.125 MG Entresto 24-26 MG Entresto 24-26 MG No 1{table t} QD Entresto 24-26 MG Pantoprazol e Sodium 40 MG Pantoprazol e Sodium 40 MG No 1{table t} QD Pantoprazo le Sodium 40 MG busPIRone HCl 10 MG busPIRone HCl 10 MG No 1{table t} BID busPIRone HCl 10 MG Levothyroxi ne Sodium 88 MCG Levothyroxi ne Sodium 88 MCG No Levothyrox ine Sodium 88 MCG Pantoprazol e Sodium 40 MG Pantoprazol e Sodium 40 MG No Pantoprazo le Sodium 40 MG Plavix 75 MG Plavix 75 MG No 1{table t} QD Plavix 75 MG Citalopram Hydrobromid e 20 MG Citalopram Hydrobromid e 20 MG No 1{table t} QD Citalopram Hydrobromi de 20 MG Levothyroxi ne Sodium 75 MCG Levothyroxi ne Sodium 75 MCG No QD Levothyrox ine Sodium 75 MCG Levothyroxi ne Sodium 75 MCG Levothyroxi ne Sodium 75 MCG No QD Levothyrox ine Sodium 75 MCG busPIRone HCl 10 MG busPIRone HCl 10 MG No busPIRone HCl 10 MG Ferrous Sulfate 325 (65 Fe) MG Ferrous Sulfate 325 (65 Fe) MG No 1{table t} BID Ferrous Sulfate 325 (65 Fe) MG Symbicort 160-4.5 MCG/ACT Symbicort 160-4.5 MCG/ACT No 2{puffs } BID Symbicort 160-4.5 MCG/ACT Citalopram Hydrobromid e 20 MG Citalopram Hydrobromid e 20 MG No Citalopram Hydrobromi de 20 MG Ferrous Sulfate 325 (65 Fe) MG Ferrous Sulfate 325 (65 Fe) MG No 1{table t} QD Ferrous Sulfate 325 (65 Fe) MG traZODone HCl 100 MG traZODone HCl 100 MG No traZODone HCl 100 MG Vitamin D3 1000 UNIT Vitamin D3 1000 UNIT No 1{capsu le} QD Vitamin D3 1000 UNIT Ezetimibe 10 MG Ezetimibe 10 MG No 1{table t} QD Ezetimibe 10 MG Pravastatin Sodium 40 MG Pravastatin Sodium 40 MG No 1{table t} QD Pravastati n Sodium 40 MG Tylenol Tylenol No Tylenol ProAir HFA 108 (90 Base) MCG/ACT ProAir HFA 108 (90 Base) MCG/ACT No 2{puffs _as_nee ded} QID ProAir HFA 108 (90 Base) MCG/ACT sulfaSALAzi ne 500 MG sulfaSALAzi ne 500 MG No 2{table t} QD sulfaSALAz ine 500 MG Aspir-81 81 MG Aspir-81 81 MG No 1{table t} QD Aspir-81 81 MG Furosemide 20 MG Furosemide 20 MG No 1{table t} QD Furosemide 20 MG Plavix 75 MG Plavix 75 MG No 1{table t} QD Plavix 75 MG Coreg 3.125 MG Coreg 3.125 MG No Coreg 3.125 MG Entresto 24-26 MG Entresto 24-26 MG No 1{table t} QD Entresto 24-26 MG Pantoprazol e Sodium 40 MG Pantoprazol e Sodium 40 MG No 1{table t} QD Pantoprazo le Sodium 40 MG busPIRone HCl 10 MG busPIRone HCl 10 MG No 1{table t} BID busPIRone HCl 10 MG Levothyroxi ne Sodium 88 MCG Levothyroxi ne Sodium 88 MCG No Levothyrox ine Sodium 88 MCG Pantoprazol e Sodium 40 MG Pantoprazol e Sodium 40 MG No Pantoprazo le Sodium 40 MG Citalopram Hydrobromid e 20 MG Citalopram Hydrobromid e 20 MG No 1{table t} QD Citalopram Hydrobromi de 20 MG traZODone HCl 150 MG traZODone HCl 150 MG No traZODone HCl 150 MG Levothyroxi ne Sodium 75 MCG Levothyroxi ne Sodium 75 MCG No QD Levothyrox ine Sodium 75 MCG Levothyroxi ne Sodium 75 MCG Levothyroxi ne Sodium 75 MCG No QD Levothyrox ine Sodium 75 MCG busPIRone HCl 10 MG busPIRone HCl 10 MG No busPIRone HCl 10 MG Ferrous Sulfate 325 (65 Fe) MG Ferrous Sulfate 325 (65 Fe) MG No 1{table t} BID Ferrous Sulfate 325 (65 Fe) MG Symbicort 160-4.5 MCG/ACT Symbicort 160-4.5 MCG/ACT No 2{puffs } BID Symbicort 160-4.5 MCG/ACT Citalopram Hydrobromid e 20 MG Citalopram Hydrobromid e 20 MG No Citalopram Hydrobromi de 20 MG Citalopram Hydrobromid e 20 MG Citalopram Hydrobromid e 20 MG No 1{table t} QD Citalopram Hydrobromi de 20 MG Citalopram Hydrobromid e 20 MG Citalopram Hydrobromid e 20 MG No Citalopram Hydrobromi de 20 MG Ezetimibe 10 MG Ezetimibe 10 MG No 1{table t} QD Ezetimibe 10 MG Pravastatin Sodium 40 MG Pravastatin Sodium 40 MG No 1{table t} QD Pravastati n Sodium 40 MG Tylenol Tylenol No Tylenol ProAir HFA 108 (90 Base) MCG/ACT ProAir HFA 108 (90 Base) MCG/ACT No 2{puffs _as_nee ded} QID ProAir HFA 108 (90 Base) MCG/ACT Aspir-81 81 MG Aspir-81 81 MG No 1{table t} QD Aspir-81 81 MG Furosemide 20 MG Furosemide 20 MG No 1{table t} QD Furosemide 20 MG Plavix 75 MG Plavix 75 MG No 1{table t} QD Plavix 75 MG Coreg 3.125 MG Coreg 3.125 MG No Coreg 3.125 MG Levothyroxi ne Sodium 112 MCG Levothyroxi ne Sodium 112 MCG No Levothyrox ine Sodium 112 MCG Entresto 24-26 MG Entresto 24-26 MG No 1{table t} QD Entresto 24-26 MG Pantoprazol e Sodium 40 MG Pantoprazol e Sodium 40 MG No 1{table t} QD Pantoprazo le Sodium 40 MG busPIRone HCl 10 MG busPIRone HCl 10 MG No 1{table t} BID busPIRone HCl 10 MG Levothyroxi ne Sodium 88 MCG Levothyroxi ne Sodium 88 MCG No Levothyrox ine Sodium 88 MCG Pantoprazol e Sodium 40 MG Pantoprazol e Sodium 40 MG No Pantoprazo le Sodium 40 MG Citalopram Hydrobromid e 20 MG Citalopram Hydrobromid e 20 MG No 1{table t} QD Citalopram Hydrobromi de 20 MG Levothyroxi ne Sodium 75 MCG Levothyroxi ne Sodium 75 MCG No QD Levothyrox ine Sodium 75 MCG Levothyroxi ne Sodium 75 MCG Levothyroxi ne Sodium 75 MCG No QD Levothyrox ine Sodium 75 MCG busPIRone HCl 10 MG busPIRone HCl 10 MG No busPIRone HCl 10 MG Pravastatin Sodium 40 MG Pravastatin Sodium 40 MG No Pravastati n Sodium 40 MG Ferrous Sulfate 325 (65 Fe) MG Ferrous Sulfate 325 (65 Fe) MG No 1{table t} BID Ferrous Sulfate 325 (65 Fe) MG Symbicort 160-4.5 MCG/ACT Symbicort 160-4.5 MCG/ACT No 2{puffs } BID Symbicort 160-4.5 MCG/ACT Citalopram Hydrobromid e 20 MG Citalopram Hydrobromid e 20 MG No Citalopram Hydrobromi de 20 MG Ezetimibe 10 MG Ezetimibe 10 MG No 1{table t} QD Ezetimibe 10 MG busPIRone HCl 10 MG busPIRone HCl 10 MG No 1{table t} BID busPIRone HCl 10 MG Pravastatin Sodium 40 MG Pravastatin Sodium 40 MG No 1{table t} QD Pravastati n Sodium 40 MG Tylenol Tylenol No Tylenol ProAir HFA 108 (90 Base) MCG/ACT ProAir HFA 108 (90 Base) MCG/ACT No 2{puffs _as_nee ded} QID ProAir HFA 108 (90 Base) MCG/ACT Aspir-81 81 MG Aspir-81 81 MG No 1{table t} QD Aspir-81 81 MG Furosemide 20 MG Furosemide 20 MG No 1{table t} QD Furosemide 20 MG Plavix 75 MG Plavix 75 MG No 1{table t} QD Plavix 75 MG Coreg 3.125 MG Coreg 3.125 MG No Coreg 3.125 MG Entresto 24-26 MG Entresto 24-26 MG No 1{table t} QD Entresto 24-26 MG Pantoprazol e Sodium 40 MG Pantoprazol e Sodium 40 MG No 1{table t} QD Pantoprazo le Sodium 40 MG busPIRone HCl 10 MG busPIRone HCl 10 MG No 1{table t} BID busPIRone HCl 10 MG busPIRone HCl 10 MG busPIRone HCl 10 MG No busPIRone HCl 10 MG Levothyroxi ne Sodium 88 MCG Levothyroxi ne Sodium 88 MCG No Levothyrox ine Sodium 88 MCG Pantoprazol e Sodium 40 MG Pantoprazol e Sodium 40 MG No Pantoprazo le Sodium 40 MG Citalopram Hydrobromid e 20 MG Citalopram Hydrobromid e 20 MG No 1{table t} QD Citalopram Hydrobromi de 20 MG Levothyroxi ne Sodium 75 MCG Levothyroxi ne Sodium 75 MCG No QD Levothyrox ine Sodium 75 MCG Levothyroxi ne Sodium 75 MCG Levothyroxi ne Sodium 75 MCG No QD Levothyrox ine Sodium 75 MCG busPIRone HCl 10 MG busPIRone HCl 10 MG No busPIRone HCl 10 MG Ferrous Sulfate 325 (65 Fe) MG Ferrous Sulfate 325 (65 Fe) MG No 1{table t} BID Ferrous Sulfate 325 (65 Fe) MG Symbicort 160-4.5 MCG/ACT Symbicort 160-4.5 MCG/ACT No 2{puffs } BID Symbicort 160-4.5 MCG/ACT Citalopram Hydrobromid e 20 MG Citalopram Hydrobromid e 20 MG No Citalopram Hydrobromi de 20 MG Coreg 3.125 MG Coreg 3.125 MG No Coreg 3.125 MG Pantoprazol e Sodium 40 MG Pantoprazol e Sodium 40 MG No 1{table t} QD Pantoprazo le Sodium 40 MG ProAir HFA 108 (90 Base) MCG/ACT ProAir HFA 108 (90 Base) MCG/ACT No 2{puffs _as_nee ded} QID ProAir HFA 108 (90 Base) MCG/ACT Symbicort 160-4.5 MCG/ACT Symbicort 160-4.5 MCG/ACT No 2{puffs } BID Symbicort 160-4.5 MCG/ACT Tylenol Tylenol No Tylenol Aspir-81 81 MG Aspir-81 81 MG No 1{table t} QD Aspir-81 81 MG ProAir HFA 108 (90 Base) MCG/ACT ProAir HFA 108 (90 Base) MCG/ACT No 2{puffs _as_nee ded} QID ProAir HFA 108 (90 Base) MCG/ACT Plavix 75 MG Plavix 75 MG No 1{table t} QD Plavix 75 MG Furosemide 20 MG Furosemide 20 MG No 1{table t} QD Furosemide 20 MG Citalopram Hydrobromid e 20 MG Citalopram Hydrobromid e 20 MG No Citalopram Hydrobromi de 20 MG Coreg 3.125 MG Coreg 3.125 MG No Coreg 3.125 MG Entresto 24-26 MG Entresto 24-26 MG No 1{table t} QD Entresto 24-26 MG Pantoprazol e Sodium 40 MG Pantoprazol e Sodium 40 MG No 1{table t} QD Pantoprazo le Sodium 40 MG Entresto 49-51 MG Entresto 49-51 MG No 1{table t} BID Entresto 49-51 MG busPIRone HCl 10 MG busPIRone HCl 10 MG No 1{table t} BID busPIRone HCl 10 MG Levothyroxi ne Sodium 88 MCG Levothyroxi ne Sodium 88 MCG No Levothyrox ine Sodium 88 MCG Pantoprazol e Sodium 40 MG Pantoprazol e Sodium 40 MG No Pantoprazo le Sodium 40 MG Pravastatin Sodium 40 MG Pravastatin Sodium 40 MG No 1{table t} QD Pravastati n Sodium 40 MG Levothyroxi ne Sodium 75 MCG Levothyroxi ne Sodium 75 MCG No QD Levothyrox ine Sodium 75 MCG busPIRone HCl 10 MG busPIRone HCl 10 MG No busPIRone HCl 10 MG Levothyroxi ne Sodium 75 MCG Levothyroxi ne Sodium 75 MCG No QD Levothyrox ine Sodium 75 MCG Ferrous Sulfate 325 (65 Fe) MG Ferrous Sulfate 325 (65 Fe) MG No 1{table t} BID Ferrous Sulfate 325 (65 Fe) MG Symbicort 160-4.5 MCG/ACT Symbicort 160-4.5 MCG/ACT No 2{puffs } BID Symbicort 160-4.5 MCG/ACT Ezetimibe 10 MG Ezetimibe 10 MG No 1{table t} QD Ezetimibe 10 MG Furosemide 20 MG Furosemide 20 MG No 1{table t} QD Furosemide 20 MG Tylenol Tylenol No Tylenol Aspir-81 81 MG Aspir-81 81 MG No 1{table t} QD Aspir-81 81 MG ProAir HFA 108 (90 Base) MCG/ACT ProAir HFA 108 (90 Base) MCG/ACT No 2{puffs _as_nee ded} QID ProAir HFA 108 (90 Base) MCG/ACT Plavix 75 MG Plavix 75 MG No 1{table t} QD Plavix 75 MG Furosemide 20 MG Furosemide 20 MG No 1{table t} QD Furosemide 20 MG Citalopram Hydrobromid e 20 MG Citalopram Hydrobromid e 20 MG No Citalopram Hydrobromi de 20 MG Coreg 3.125 MG Coreg 3.125 MG No Coreg 3.125 MG Entresto 24-26 MG Entresto 24-26 MG No 1{table t} QD Entresto 24-26 MG Pantoprazol e Sodium 40 MG Pantoprazol e Sodium 40 MG No 1{table t} QD Pantoprazo le Sodium 40 MG busPIRone HCl 10 MG busPIRone HCl 10 MG No 1{table t} BID busPIRone HCl 10 MG Levothyroxi ne Sodium 88 MCG Levothyroxi ne Sodium 88 MCG No Levothyrox ine Sodium 88 MCG Pantoprazol e Sodium 40 MG Pantoprazol e Sodium 40 MG No Pantoprazo le Sodium 40 MG Pravastatin Sodium 40 MG Pravastatin Sodium 40 MG No 1{table t} QD Pravastati n Sodium 40 MG Levothyroxi ne Sodium 75 MCG Levothyroxi ne Sodium 75 MCG No QD Levothyrox ine Sodium 75 MCG busPIRone HCl 10 MG busPIRone HCl 10 MG No busPIRone HCl 10 MG Symbicort 160-4.5 MCG/ACT Symbicort 160-4.5 MCG/ACT No 2{puffs } BID Symbicort 160-4.5 MCG/ACT Levothyroxi ne Sodium 75 MCG Levothyroxi ne Sodium 75 MCG No QD Levothyrox ine Sodium 75 MCG Immunizations Ordered Immunization Name Filled Immunization Name Date Status Comments Source FluAD FluAD 2020-08-31 14:52:00 Completed [facility] FluAD FluAD 2020-08-31 14:52:00 Completed [facility] FluAD FluAD 2020-08-31 14:52:00 Completed [facility] FluAD FluAD 2020-08-31 14:52:00 Completed [facility] FluAD FluAD 2020-08-31 14:52:00 Completed [facility] FluAD FluAD 2020-08-31 14:52:00 Completed [facility] FluAD FluAD 2020-08-31 14:52:00 Completed [facility] FluAD FluAD 2020-08-31 14:52:00 Completed [facility] FluAD FluAD 2020-08-31 14:52:00 Completed [facility] FluAD FluAD 2020-08-31 14:52:00 Completed [facility] FluAD FluAD 2020-08-31 14:52:00 Completed [facility] FluAD FluAD 2020-08-31 14:52:00 Completed [facility] FluAD FluAD 2020-08-31 14:52:00 Completed [facility] FluAD FluAD 2020-08-31 14:52:00 Completed [facility] FluAD FluAD 2020-08-31 14:52:00 Completed [facility] FluAD FluAD 2020-08-31 14:52:00 Completed [facility] FluAD FluAD 2020-08-31 14:52:00 Completed [facility] FluAD FluAD 2020-08-31 14:52:00 Completed [facility] FluAD FluAD 2020-08-31 14:52:00 Completed [facility] FluAD FluAD 2020-08-31 14:52:00 Completed [facility] FluAD FluAD 2020-08-31 14:52:00 Completed [facility] FluAD FluAD 2020-08-31 14:52:00 Completed [facility] FluAD FluAD 2020-08-31 14:52:00 Completed [facility] FluAD FluAD 2020-08-31 14:52:00 Completed [facility] FluAD FluAD 2020-08-31 14:52:00 Completed [facility] FluAD FluAD 2020-08-31 14:52:00 Completed [facility] FluAD FluAD 2020-08-31 14:52:00 Completed [facility] FluAD FluAD 2020-08-31 14:52:00 Completed [facility] Influenza High Dose 2020-08-30 00:00:00 Completed [facility] Influenza High Dose 2020-08-30 00:00:00 Completed [facility] Influenza High Dose 2020-08-30 00:00:00 Completed [facility] Influenza High Dose 2020-08-30 00:00:00 Completed [facility] Influenza High Dose 2020-08-30 00:00:00 Completed [facility] Influenza High Dose 2020-08-30 00:00:00 Completed [facility] Influenza High Dose 2020-08-30 00:00:00 Completed [facility] Influenza High Dose 2020-08-30 00:00:00 Completed [facility] Influenza High Dose 2020-08-30 00:00:00 Completed [facility] Influenza High Dose 2020-08-30 00:00:00 Completed [facility] Influenza High Dose 2020-08-30 00:00:00 Completed [facility] Influenza High Dose 2020-08-30 00:00:00 Completed [facility] Influenza High Dose 2020-08-30 00:00:00 Completed [facility] Influenza High Dose 2020-08-30 00:00:00 Completed [facility] Influenza High Dose 2020-08-30 00:00:00 Completed [facility] Influenza High Dose 2020-08-30 00:00:00 Completed [facility] Influenza High Dose 2020-08-30 00:00:00 Completed [facility] Influenza High Dose 2020-08-30 00:00:00 Completed [facility] Influenza High Dose 2020-08-30 00:00:00 Completed [facility] Influenza High Dose 2020-08-30 00:00:00 Completed [facility] Influenza High Dose 2020-08-30 00:00:00 Completed [facility] FluAD FluAD Unknown Completed [facility] FluAD FluAD Unknown Completed [facility] FluAD FluAD Unknown Completed [facility] FluAD FluAD Unknown Completed [facility] FluAD FluAD Unknown Completed [facility] FluAD FluAD Unknown Completed [facility] Influenza High Dose Unknown Completed [facility] FluAD FluAD Unknown Completed [facility] Influenza High Dose Unknown Completed [facility] FluAD FluAD Unknown Completed [facility] Influenza High Dose Unknown Completed [facility] Influenza Virus Vaccine,quad Im,preserve Free 65+ (FLUAD) Unknown Completed [facility] FluAD FluAD Unknown Completed [facility] SARS-COV-2 COVID-19 VACCINE - (MODERNA) Unknown Completed [facility] Flu[facility] FluAD Unknown Completed [facility] SARS-COV-2 COVID-19 VACCINE - (MODERNA) Unknown Completed [facility] FluAD FluAD Unknown Completed [facility] Influenza Virus Vaccine (3+ yrs) Unknown Completed [facility] FluAD FluAD Unknown Completed [facility] Influenza High Dose Unknown Completed [facility] FluAD FluAD Unknown Completed [facility] Influenza Virus Vaccine,quad Im,preserve Free 65+ (FLUAD) Unknown Completed [facility] SARS-COV-2 COVID-19 VACCINE - (MODERNA) Unknown Completed [facility] SARS-COV-2 COVID-19 VACCINE - (MODERNA) Unknown Completed [facility] Influenza Virus Vaccine (3+ yrs) Unknown Completed [facility] Influenza High Dose Unknown Completed [facility] Influenza Virus Vaccine,quad Im,preserve Free 65+ (FLUAD) Unknown Completed [facility] SARS-COV-2 COVID-19 VACCINE - (MODERNA) Unknown Completed [facility] SARS-COV-2 COVID-19 VACCINE - (MODERNA) Unknown Completed [facility] Influenza Virus Vaccine (3+ yrs) Unknown Completed [facility] Influenza High Dose Unknown Completed [facility] Influenza Virus Vaccine,quad Im,preserve Free 65+ (FLUAD) Unknown Completed [facility] SARS-COV-2 COVID-19 VACCINE - (MODERNA) Unknown Completed [facility] SARS-COV-2 COVID-19 VACCINE - (MODERNA) Unknown Completed [facility] Influenza Virus Vaccine (3+ yrs) Unknown Completed [facility] Influenza High Dose Unknown Completed [facility] Influenza Virus Vaccine,quad Im,preserve Free 65+ (FLUAD) Unknown Completed [facility] SARS-COV-2 COVID-19 VACCINE - (MODERNA) Unknown Com[facility] SARS-COV-2 COVID-19 VACCINE - (MODERNA) Unknown Completed [facility] Influenza Virus Vaccine (3+ yrs) Unknown Completed [facility] Influenza High Dose Unknown Completed [facility] Influenza Virus Vaccine,quad Im,preserve Free 65+ (FLUAD) Unknown Completed [facility] SARS-COV-2 COVID-19 VACCINE - (MODERNA) Unknown Completed [facility] SARS-COV-2 COVID-19 VACCINE - (MODERNA) Unknown Completed [facility] Influenza Virus Vaccine (3+ yrs) Unknown Completed [facility] Influenza High Dose Unknown Completed [facility] Influenza Virus Vaccine,quad Im,preserve Free 65+ (FLUAD) Unknown Completed [facility] SARS-COV-2 COVID-19 VACCINE - (MODERNA) Unknown Completed [facility] SARS-COV-2 COVID-19 VACCINE - (MODERNA) Unknown Completed [facility] Influenza Virus Vaccine (3+ yrs) Unknown Completed [facility] Influenza High Dose Unknown Completed [facility] Influenza Virus Vaccine,quad Im,preserve Free 65+ (FLUAD) Unknown Completed [facility] SARS-COV-2 COVID-19 VACCINE - (MODERNA) Unknown Completed [facility] SARS-COV-2 COVID-19 VACCINE - (MODERNA) Unknown Completed [facility] Influenza Virus Vaccine (3+ yrs) Unknown Completed [facility] Influenza High Dose Unknown Completed [facility] Influenza Virus Vaccine,quad Im,preserve Free 65+ (FLUAD) Unknown Completed [facility] SARS-COV-2 COVID-19 VACCINE - (MODERNA) Unknown Completed [facility] SARS-COV-2 COVID-19 VACCINE - (MODERNA) Unknown Completed [facility] Influenza Virus Vaccine (3+ yrs) Unknown Completed [facility] Vital Signs Vital Name Observation Time Observation Value Comments S vj Systolic blood pressure 2023-08-29 21:02:00 133 mm[Hg] [facility] Diastolic blood pressure 2023-08-29 21:02:00 73 mm[Hg] [facility] Heart rate 2023-08-29 21:02:00 72 /min [facility] Respiratory rate 2023-08-29 21:02:00 18 /min [facility] Body height 2023-08-29 21:02:00 170.2 cm [facility] Body weight 2023-08-29 21:02:00 88.451 kg [facility] BMI 2023-08-29 21:02:00 30.54 kg/m2 [facility] Oxygen saturation in Arterial blood by Pulse oximetry 2023-08-29 21:02:00 97 /min [facility] height 2023-08-14 08:50:00 67 [in_i] Commo n [facility] weight 2023-08-14 08:50:00 193 [lb_av] Comm on [facility] bmi 2023-08-14 08:50:00 30.22 kg/m2 [facility] on [facility] blood pressure systolic 2023-08-14 08:50:00 126 mm[Hg] [facility] blood pressure diastolic 2023-08-14 08:50:00 74 mm[Hg] [facility] height 2023-05-22 13:10:00 67 [in_i] Commo n [facility] weight 2023-05-22 13:10:00 192.0 [lb_av] Co mmon [facility] temperature 2023-05-22 13:10:00 97.3 [degF] Com mon [facility] bmi 2023-05-22 13:10:00 30.07 kg/m2 Comm on [facility] oximetry 2023-05-22 13:10:00 98 % Commo n [facility] respiratory rate 2023-05-22 13:10:00 18 /min [facility] blood pressure systolic 2023-05-22 13:10:00 129 mm[Hg] [facility] blood pressure diastolic 2023-05-22 13:10:00 71 mm[Hg] [facility] height 2023-05-22 13:20:00 67 [in_i] Commo n [facility] weight 2023-05-22 13:20:00 192.0 [lb_av] Co mmon [facility] temperature 2023-05-22 13:20:00 97.3 [degF] Com mon [facility] bmi 2023-05-22 13:20:00 30.07 kg/m2 Comm on [facility] oximetry 2023-05-22 13:20:00 98 % Commo n [facility] respiratory rate 2023-05-22 13:20:00 18 /min [facility] blood pressure systolic 2023-05-22 13:20:00 129 mm[Hg] [facility] blood pressure diastolic 2023-05-22 13:20:00 71 mm[Hg] [facility] height 2023-04-05 11:40:00 67 [in_i] Commo n [facility] weight 2023-04-05 11:40:00 193 [lb_av] Comm on [facility] bmi 2023-04-05 11:40:00 30.22 kg/m2 Comm on [facility] height 2023-03-07 14:30:00 67 [in_i] Commo n [facility] weight 2023-03-07 14:30:00 193.4 [lb_av] Co mmon [facility] temperature 2023-03-07 14:30:00 97.9 [degF] Com mon [facility] bmi 2023-03-07 14:30:00 30.29 kg/m2 Comm on [facility] oximetry 2023-03-07 14:30:00 97 % Commo n [facility] respiratory rate 2023-03-07 14:30:00 18 /min [facility] blood pressure systolic 2023-03-07 14:30:00 105 mm[Hg] [facility] blood pressure diastolic 2023-03-07 14:30:00 62 mm[Hg] Common [facility] height 2023-01-18 13:30:00 67 [in_i] Commo n [facility] weight 2023-01-18 13:30:00 192 [lb_av] Comm on [facility] temperature 2023-01-18 13:30:00 98 [degF] Comm on [facility] bmi 2023-01-18 13:30:00 30.07 kg/m2 Comm on [facility] blood pressure systolic 2023-01-18 13:30:00 116 mm[Hg] Common [facility] blood pressure diastolic 2023-01-18 13:30:00 70 mm[Hg] [facility] Systolic blood pressure 2022-12-18 18:27:00 113 mm[Hg] [facility] Diastolic blood pressure 2022-12-18 18:27:00 74 mm[Hg] [facility] Heart rate 2022-12-18 18:27:00 84 /min [facility] Body temperature 2022-12-18 18:27:00 36.17 Hermelinda [facility] Respiratory rate 2022-12-18 18:27:00 18 /min [facility] Body height 2022-12-18 18:27:00 170.2 cm [facility] Body weight 2022-12-18 18:27:00 88.27 kg [facility] BMI 2022-12-18 18:27:00 30.48 kg/m2 [facility] Oxygen saturation in Arterial blood by Pulse oximetry 2022-12-18 18:27:00 96 /min [facility] height 2022-12-12 10:50:00 67 [in_i] Commo n [facility] weight 2022-12-12 10:50:00 195.1 [lb_av] Co mmon [facility] temperature 2022-12-12 10:50:00 98.5 [degF] Com mon [facility] bmi 2022-12-12 10:50:00 30.55 kg/m2 Comm on [facility] oximetry 2022-12-12 10:50:00 97 % Commo n [facility] respiratory rate 2022-12-12 10:50:00 16 /min Common [facility] blood pressure systolic 2022-12-12 10:50:00 108 mm[Hg] [facility] blood pressure diastolic 2022-12-12 10:50:00 54 mm[Hg] [facility] height 2022-09-11 13:20:00 67 [in_i] Commo n [facility] weight 2022-09-11 13:20:00 197 [lb_av] Comm on [facility] temperature 2022-09-11 13:20:00 98 [degF] Comm on [facility] bmi 2022-09-11 13:20:00 30.85 kg/m2 Comm on [facility] blood pressure systolic 2022-09-11 13:20:00 125 mm[Hg] [facility] blood pressure diastolic 2022-09-11 13:20:00 72 mm[Hg] [facility] Systolic blood pressure 2022-09-01 13:56:00 88 mm[Hg] [facility] Diastolic blood pressure 2022-09-01 13:56:00 54 mm[Hg] [facility] Respiratory rate 2022-09-01 13:56:00 21 /min [facility] Oxygen saturation in Arterial blood by Pulse oximetry 2022-09-01 13:56:00 98 /min [facility] Body weight 2022-05-26 19:57:00 89.5 kg [facility] BMI 2022-05-26 19:57:00 30.90 kg/m2 [facility] Systolic blood pressure 2022-09-01 13:56:00 88 mm[Hg] [facility] Diastolic blood pressure 2022-09-01 13:56:00 54 mm[Hg] [facility] Respiratory rate 2022-09-01 13:56:00 21 /min [facility] Oxygen saturation in Arterial blood by Pulse oximetry 2022-09-01 13:56:00 98 /min [facility] Body weight 2022-05-26 19:57:00 89.5 kg [facility] BMI 2022-05-26 19:57:00 30.90 kg/m2 [facility] height 2022-05-15 08:00:00 67 [in_i] Commo n [facility] weight 2022-05-15 08:00:00 198 [lb_av] Comm on [facility] temperature 2022-05-15 08:00:00 97.4 [degF] Com [facility] bmi 2022-05-15 08:00:00 31.01 kg/m2 Comm on [facility] blood pressure systolic 2022-05-15 08:00:00 120 mm[Hg] [facility] blood pressure diastolic 2022-05-15 08:00:00 70 mm[Hg] [facility] height 2022-05-15 07:40:00 67 [in_i] Commo n [facility] weight 2022-05-15 07:40:00 198 [lb_av] Comm on [facility] temperature 2022-05-15 07:40:00 97.4 [degF] Com [facility] bmi 2022-05-15 07:40:00 31.01 kg/m2 Comm on [facility] blood pressure systolic 2022-05-15 07:40:00 120 mm[Hg] [facility] blood pressure diastolic 2022-05-15 07:40:00 70 mm[Hg] [facility] Systolic blood pressure 2022-05-09 19:04:00 120 mm[Hg] [facility] Diastolic blood pressure 2022-05-09 19:04:00 66 mm[Hg] [place] [facility] Heart rate 2022-05-09 19:04:00 78 /min [facility] 2022-05-09 19:04:00 35.44 Hermel[facility] Respiratory rate 2022-05-09 19:04:00 18 /min [facility] Body height 2022-05-09 19:04:00 170.2 cm [facility] Body weight 2022-05-09 19:04:00 89.495 kg [facility] BMI 2022-05-09 19:04:00 30.90 kg/m2 [facility] Oxygen saturation in Arterial blood by Pulse oximetry 2022-05-09 19:04:00 98 /min [place] [facility] height 2021-11-30 09:00:00 67 [in_i] Commo n [facility] weight 2021-11-30 09:00:00 200 [lb_av] Comm on [facility] bmi 2021-11-30 09:00:00 31.32 kg/m2 Comm on [facility] height 2021-10-05 14:00:00 67 [in_i] Commo n [facility] weight 2021-10-05 14:00:00 200 [lb_av] Comm on [facility] temperature 2021-10-05 14:00:00 98 [degF] Comm on [facility] bmi 2021-10-05 14:00:00 31.32 kg/m2 Comm on [facility] blood pressure systolic 2021-10-05 14:00:00 114 mm[Hg] [facility] blood pressure diastolic 2021-10-05 14:00:00 74 mm[Hg] [facility] height 2021-09-13 15:10:00 67 [in_i] Commo n [facility] weight 2021-09-13 15:10:00 199.5 [lb_av] Co mmon [facility] temperature 2021-09-13 15:10:00 97.2 [degF] Com mon [facility] bmi 2021-09-13 15:10:00 31.24 kg/m2 Comm on [facility] oximetry 2021-09-13 15:10:00 98 % Commo n [facility] respiratory rate 2021-09-13 15:10:00 17 /min Common [facility] blood pressure systolic 2021-09-13 15:10:00 109 mm[Hg] [facility] blood pressure diastolic 2021-09-13 15:10:00 59 mm[Hg] [facility] height 2021-06-17 11:40:00 67 [in_i] Commo n [facility] weight 2021-06-17 11:40:00 205.3 [lb_av] Co mmon [facility] bmi 2021-06-17 11:40:00 32.15 kg/m2 Comm on [facility] Procedures Procedure Date / Time Performed Performing Clinician Source COMP. METABOLIC PANEL (86952) 2023-09-21 20:36:[facility]IP[facility] (82795)(TOTAL CHOLESTEROL, TRIGLYCERIDES, HDL) 2023-09-21 20:36:00 [facility] WITHOUT DIFF 2023-09-21 20:36:[address] [facility] FLU VACC(),65+YR,0.5 ML,IM,ADJUVANTED,QUAD(FLUAD ) 2023-08-29 21:17:50 [facility] TRANSTHORACIC ECHO (TTE) COMPLETE W/ CONTRAST 2023-08-29 20:55:02 [facility] PAT[facility] QUESTIONNAIRE 2023-02-27 05:01:00 Doctor Unassigned, Sisseton [facility] ASSIGNMENT OF BENEFITS 2022-12-18 18:16:10 Docto r Unassigned, Sisseton [facility] OUTPATIENT CARDIAC CATHETERIZATION DOCUMENTS 2022-09-11 06:01:00 Doctor Unassigned, Sisseton [facility] ELECTROPHYSIOLOGY PROCEDURE 2022-09-01 13:41:00 Charlene Clark [facility] HB ECG ROUTINE & RHYTHM STRIP 2022-09-01 13:11:40 Tammy Argueta [facility] ASSIGNMENT OF BENEFITS 2022-08-28 20:17:04 Docto r Unassigned, Sisseton [facility] Encounters Start Date/Time End Date/Time Encounter Type Admission Type Attending [facility] Care Facility Care Department Encounter ID Source 2023-05-18 09:14:00 Outpatient Mcmullen, Juice STLMLC STL[facility] [id number] [facility] 2023-02-06 08:42:01 Outpatient Mcmullen, Juice STLMLC STLMLC [id number] [facility] 2022-09-07 15:51:03 Outpatient Mcmullen, Juice STLMLC STLMLC [id number] [facility] 2021-10-19 14:27:34 Outpatient Mcmullen, Juice STLMLC STLMLC [id number] [facility] 2021-10-19 13:53:13 Outpatient Mcmullen, Juice STLMLC STLMLC [id number] [facility] 2021-10-19 12:39:19 Outpatient Mcmullen, Juice STLMLC STLMLC [id number] [facility] 2021-10-19 12:37:24 Outpatient Mcmullen, Juice STLMLC STLMLC [id number] [facility] 2021-10-19 12:36:12 Outpatient Mcmullen, Juice STLMLC STLMLC [id number] [facility] 2021-10-19 12:11:32 Outpatient Mcmullen, Juice STLMLC STLMLC [id number] [facility] 2021-10-19 11:14:14 Outpatient Mcmullen, Juice STLMLC STLMLC [id number] [facility] 2021-10-19 11:02:46 Outpatient Zia [facility]ull[facility] [id number] [facility] 2023-10-30 14:20:00 2023-10-30 14:20:00 [facility] [id number] [facility] 2023-10-16 00:00:00 2023-10-16 00:00:00 (TEL) [facility] [id number] [facility] 2023-10-01 00:00:00 2023-10-01 00:00:00 Telephone Lionel [facility] BUILDING 1.2.840.114 350.1.13.10 4.2.7.2.686 [id number] [facility] 2023-09-23 00:00:00 2023-09-23 00:00:00 Patient Secure Msg Lionel [facility] BUILDING 1.2.840.114 350.1.13.10 4.2.7.2.686 [id number] [facility] 2023-09-21 14:45:00 2023-09-21 15:00:00 Gun Stock Maker Visit Pob, 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 Lionel [facility] 1.2.840.114 350.1.13.10 4.2.7.2.686 [id number] [facility] 2023-09-21 14:45:00 2023-09-21 14:45:00 [facility] [id number] [facility] 2023-08-29 13:42:58 2023-08-29 23:59:00 Outpatient R [facility] [id number] [facility] 2023-08-29 13:42:58 2023-08-29 23:59:00 [facility] 1.2.840.114 350.1.13.10 4.2.7.2.686 [id number] [facility] 2023-08-29 15:00:00 2023-08-29 15:38:41 [facility] [place] [facility] 1.2.840.114 350.1.13.10 4.2.7.2.686 [id number] [facility] 2023-08-14 00:00:00 2023-08-14 00:00:00 OFFICE VISIT ESTAB PT LEVEL 4 STLMLC STLMLC [id number] [facility] 2023-07-10 16:00:00 2023-07-10 16:00:00 [facility] [id number] [facility] 2023-07-05 10:40:00 2023-07-05 10:40:00 Outpatient R TAMMY [facility] [id number] [facility] 2023-06-28 10:27:55 2023-06-28 23:59:00 [facility] [id number] [facility] 2023-06-28 10:27:55 2023-06-28 23:59:00 Hospital [facility] 1.2.840.114 350.1.13.10 4.2.7.2.686 [id number] [facility] 2023-06-21 15:00:00 2023-06-21 15:00:00 [facility] [id number] [facility] 2023-06-18 09:40:00 2023-06-18 09:40:00 Out[facility] [id number] [facility] 2023-05-22 00:00:00 2023-05-22 00:00:00 OFFICE VISIT ESTAB PT LEVEL 4 STLMLC STLMLC [id number] [facility] 2023-05-22 00:00:00 2023-05-22 00:00:00 SUB ANNUAL [facility] VISIT STLMLC STLMLC [id number] [facility] 2023-04-05 00:00:00 2023-04-05 00:00:00 OFFICE VISIT ESTAB PT LEVEL 3 STLMLC STLMLC [id number] [facility] 2023-04-04 00:00:00 2023-04-04 00:00:00 (TEL) STLMLC STLMLC [id number] [facility] 2023-03-07 00:00:00 2023-03-07 00:00:00 OFFICE VISIT ESTAB PT LEVEL 4 STLMLC STLMLC [id number] [facility] 2023-02-27 00:00:00 2023-02-27 00:00:00 Orders Only Doctor Unassigned, Sisseton [facility] 1..840.114 350.1.13.10 4.2.7.2.686 [id number] [facility] 2023-02-22 00:00:00 2023-02-22 00:00:00 [facility] 1.2.840.114 350.1.13.10 4.2.7.2.686 [id number] [facility] 2023-02-15 00:00:00 2023-02-15 00:00:00 (TEL) STLC STLC [id number] [facility] 2023-02-14 00:00:00 2023-02-14 00:00:00 Telephone Chidi Flowers [facility] 1.2.840.114 350.1.13.10 4.2.7.2.686 [id number] [facility] 2023-01-26 00:00:00 2023-01-26 00:00:00 (TEL) STLMLC STLMLC [id number] [facility] 2023-01-18 00:00:00 2023-01-18 00:00:00 (EST. VIDEO) EST VIRTUAL VIDEO VISIT STLMLC STLMLC [id number] [facility] 2023-01-12 00:00:00 2023-01-12 00:00:00 (TEL) STLMLC STLMLC [id number] [facility] 2022-12-18 13:40:00 2022-12-18 13:45:25 Outpatient CHIDI LÓPEZ [facility] [id number] [facility] 2022-12-18 13:40:00 2022-12-18 13:45:25 Office Visit Chidi Flowers [facility] 1..840.114 350.1.13.10 4.2.7.2.686 [id number] [facility] 2022-12-18 00:00:00 2022-12-18 00:00:00 Orders Only Doctor Unassigned, Sisseton [facility] 1.2.840.114 350.1.13.10 4.2.7.2.686 [id number] [facility] 2022-12-12 00:00:00 2022-12-12 00:00:00 OFFICE VISIT ESTAB PT LEVEL 4 STLMLC STLC [id number] [facility] 2022-12-07 11:00:39 2022-12-07 23:59:[address] [facility] [id number] [facility] 2022-11-23 09:00:00 2022-11-23 09:00:[address] [id number] [facility] 2022-11-21 00:00:00 2022-11-21 00:00:00 Telephone Chidi Flowers [facility] 1.2.840.114 350.1.13.10 4.2.7.2.686 [id number] [facility] 2022-11-20 00:00:00 2022-11-20 00:00:00 Telephone Chidi Flowers [facility] [place] 1.2.840.114 350.1.13.10 4.2.7.2.686 [id number] [facility] 2022-11-15 00:00:00 2022-11-15 00:00:00 [facility] 1.2.840.114 350.1.13.10 4.2.7.2.686 [id number] [facility] 2022-11-13 14:20:00 2022-11-13 14:20:00 [facility] [id number] [facility] 2022-11-10 00:00:00 2022-11-10 00:00:00 (TEL) STLMLC STLMLC [id number] [facility] 2022-10-27 00:00:00 2022-10-27 00:00:00 (TEL) STLMLC STLMLC [id number] [facility] 2022-10-13 00:00:00 2022-10-13 00:00:00 (TEL) STLMLC STLMLC [id number] [facility] 2022-10-11 00:00:00 2022-10-11 00:00:00 (TEL) STLMLC STLMLC [id number] [facility] 2022-10-11 00:00:00 2022-10-11 00:00:00 (TEL) STLMLC STLMLC [id number] [facility] 2022-09-13 00:00:00 2022-09-13 00:00:00 (TEL) STLMLC STLMLC [id number] [facility] 2022-09-11 00:00:00 2022-09-11 00:00:00 Orders Only Doctor Unassigned, Sisseton [facility] 1.2.840.114 350.1.13.10 4.2.7.2.686 [id number] [facility] 2022-09-11 00:00:00 2022-09-11 00:00:00 OFFICE VISIT ESTAB PT LEVEL 4 STLMLC STLC [id number] [facility] 2022-09-01 06:32:00 2022-09-01 08:54:00 Outpatient [place] E[facility]IE [facility] [id number] [facility] 2022-09-01 06:32:00 2022-09-01 08:54:00 Hospital Encounter [facility] 1.2.840.114 350.1.13.10 4.2.7.2.686 [id number] [facility] 2022-09-01 07:30:00 2022-09-01 08:15:00 Surgery [facility] 1.2.840.114 350.1.13.10 4.2.7.2.686 [id number] [facility] 2022-08-28 15:00:00 2022-08-28 15:15:00 Gun Stock Maker Visit 1, Adc Lab Ellie [facility] 1.2.840.114 350.1.13.10 4.2.7.2.686 [id number] [facility] 2022-08-28 15:00:00 2022-08-28 15:00:00 Outpatient [place] [facility] [id number] [facility] 2022-08-28 00:00:00 2022-08-28 00:00:00 Orders Only Doctor Unassigned, Sisseton [facility] 1.2.840.114 350.1.13.10 4.2.7.2.686 [id number] [facility] 2022-07-25 00:00:00 2022-07-25 00:00:00 Telephone Ellie [facility] 1.2.840.114 350.1.13.10 4.2.7.2.686 [id number] [facility] 2022-07-10 00:00:00 2022-07-10 23:59:00 Outpatient R [facility] [id number] [facility] 2022-07-10 00:00:00 2022-07-10 23:59:00 Hospital Encounter [facility] 1.2840.114 350.1.13.10 4.2.7.2.686 [id number] [facility] 2022-06-14 00:00:00 2022-06-14 00:00:00 (TEL) [facility] [id number] [facility] 2022-06-06 14:00:00 2022-06-06 14:00:[address] [facility] [id number] [facility] 2022-06-05 00:00:00 2022-06-05 00:00:00 (TEL) [facility] [id number] [facility] 2022-05-18 00:00:00 2022-05-18 00:00:00 Refill Chidi Flowers [facility] 1.2.840.114 350.1.13.10 4.2.7.2.686 [id number] [facility] 2022-05-18 00:00:00 2022-05-18 00:00:00 [facility] 1.2.840.114 350.1.13.10 4.2.7.2.686 [id number] [facility] 2022-05-15 00:00:00 2022-05-15 00:00:00 SUB ANNUAL [facility] VISIT [facility] [id number] [facility] 2022-05-15 00:00:00 2022-05-15 00:00:00 OFFICE VISIT ESTAB PT [facility]EVEL 4 [facility] [id number] [facility] 2022-05-10 00:00:00 2022-05-10 00:00:00 (TEL) [facility] [id number] [facility] 2022-05-09 14:00:00 2022-05-09 14:21:26 Outpatient R LIONEL [facility] [id number] [facility] 2022-05-09 14:00:00 2022-05-09 14:21:26 [facility] 1.2.840.114 350.1.13.10 4.2.7.2.686 [id number] [facility] 2022-05-09 14:00:00 2022-05-09 14:00:00 Outpatient R LIONEL [facility] [id number] [facility] 2022-05-04 00:00:00 2022-05-04 00:00:00 [facility] 1.2.840.114 350.1.13.10 4.2.7.2.686 [id number] [facility] 2022-05-02 00:00:00 2022-05-02 00:00:00 Telephone [facility] 1.2.840.114 350.1.13.10 4.2.7.2.686 [id number] [facility] 2022-04-20 00:00:00 2022-04-20 00:00:00 Telephone [facility] 1.2.840.114 350.1.13.10 4.2.7.2.686 [id number] [facility] 2022-04-19 14:00:00 2022-04-19 14:00:00 [facility] [id number] [facility] 2022-04-18 00:00:00 2022-04-18 00:00:00 Telephone Lionel [facility] 1.2.840.114 350.1.13.10 4.2.7.2.686 [id number] [facility] 2022-04-17 00:00:00 2022-04-17 00:00:00 [facility] 1.2.840.114 350.1.13.10 4.2.7.2.686 [id number] [facility] 2022-04-17 00:00:00 2022-04-17 00:00:00 Telephone Lionel [facility] BUILDING 1.2.840.114 350.1.13.10 4.2.7.2.686 [id number] [facility] 2022-04-17 00:00:00 2022-04-17 00:00:00 (TEL) [facility] [id number] [facility] 2022-04-14 00:00:00 2022-04-14 00:00:00 (TEL) [facility] [id number] [facility] 2022-04-13 15:38:00 2022-04-13 17:56:00 Emergency X KAMERON HAYES [facility] ERT [id number] [facility] 2022-04-13 15:38:00 2022-04-13 17:56:00 Emergency Kameron Hayes [facility] 1.2.840.114 350.1.13.10 4.2.7.2.686 [id number] [facility] 2022-04-12 00:00:00 2022-04-12 00:00:00 [facility] 1.2.840.114 350.1.13.10 4.2.7.2.686 [id number] [facility] 2022-04-11 00:00:00 2022-04-11 00:00:00 Telephone Lionel [facility] 1.2.840.114 350.1.13.10 4.2.7.2.686 [id number] [facility] 2022-04-10 00:00:00 2022-04-10 00:00:00 Telephone Tammy Argueta [facility] 1.2.840.114 350.1.13.10 4.2.7.2.686 [id number] [facility] 2022-03-30 00:00:00 2022-03-30 00:00:00 Telephone Lionel [facility] 1.2.840.114 350.1.13.10 4.2.7.2.686 [id number] [facility] 2022-03-30 00:00:00 2022-03-30 00:00:00 Orders Only Doctor Unassigned, Sisseton [facility] 1.2.840.114 350.1.13.10 4.2.7.2.686 [id number] [facility] 2022-03-21 00:00:00 2022-03-21 00:00:00 [facility]ill Lion[facility], [facility] 1.2.840.114 350.1.13.10 [id number] [id number] [facility] 2022-03-17 10:20:00 2022-03-17 10:20:[address] [facility] [id number] [facility] 2022-03-08 14:40:00 2022-03-08 14:40:00 [id number] 2022-02-13 14:00:00 2022-02-13 14:00:00 [facility] [id number] [facility] 2021-12-16 09:20:00 2021-12-16 23:59:00 [id number] 2021-12-06 00:00:00 2021-12-06 00:00:00 (TEL) STLMLC STLMLC [id number] [facility] 2021-12-02 09:40:00 2021-12-02 09:40:[address] [facility] [id number] [facility] 2021-12-02 00:00:00 2021-12-02 00:00:00 [facility] 1.2.840.114 350.1.13.10 4.2.7.2.686 [id number] [facility] 2021-11-30 00:00:00 2021-11-30 00:00:00 OL DIG E/M SVC 11-20 MIN STLMLC STLMLC [id number] [facility] 2021-11-29 00:00:00 2021-11-29 00:00:00 (TEL) STLMLC STLMLC [id number] [facility] 2021-11-18 10:40:00 2021-11-18 10:40:[address] [facility] [id number] [facility] 2021-11-18 00:00:00 2021-11-18 00:00:00 [facility] 1.2.840.114 350.1.13.10 4.2.7.2.686 [id number] [facility] 2021-10-21 09:00:00 2021-10-21 09:00:[address] [facility] [id number] [facility] 2021-10-19 00:00:00 2021-10-19 00:00:00 Telephone Juan Flowerssara [facility] BUILD[facility] 1.2.840.114 350.1.13.10 4.2.7.2.686 [id number] [id number] [facility] 2021-10-14 11:00:00 2021-10-14 11:00:[address]Y [facility] [id number] [facility] 2021-10-05 00:00:00 2021-10-05 00:00:00 (TEL[facility] [id number] [facility] 2021-10-05 00:00:00 2021-10-05 00:00:00 OFFICE VISIT EST PT LEVEL 3 [facility] [id number] [facility] 2021-09-26 00:00:00 2021-09-26 00:00:00 Refill Omole, Jack Yasmani [facility] 1.2.840.114 350.1.13.10 4.2.7.2.686 [id number] [id number] [facility] 2021-09-21 00:00:00 2021-09-21 00:00:00 Patient Secure Msg [facility]el[facility] 1.2.840.114 350.1.13.10 4.2.7.2.686 [id number] [id number] [facility] 2021-09-20 15:00:00 2021-09-20 23:59:00 [facility] [id number] [facility] 2021-09-20 15:00:00 2021-09-20 23:59:00 Hospital Encounter Lionel [facility] BUILDING 1.2.840.114 350.1.13.10 4.2.7.2.686 [id number] [facility] 2021-09-13 00:00:00 2021-09-13 00:00:00 OFFICE VISIT ESTAB PT LEVEL 4 STLMLC ST[facility]C [id number] [facility] 2021-09-12 15:00:00 2021-09-12 15:00:00 Outpatient R LIONEL [facility] [id number] [facility] 2021-09-12 00:00:00 2021-09-12 00:00:00 Telephone Lionel [facility] BUILDING 1.2.840.114 350.1.13.10 4.2.7.2.686 [id number] [id number] [facility] 2021-08-26 00:00:00 2021-08-26 00:00:00 (TEL) STLMLC ST[facility]MLC [id number] [facility] 2021-08-25 14:00:00 2021-08-25 14:00:00 Outpatient R [facility] [id number] [facility] 2021-08-16 14:20:00 2021-08-16 14:38:22 [facility] [id number] [facility] 2021-08-16 14:20:00 2021-08-16 14:38:22 Outpatient R CHIDI FLOWERS [facility] [id number] [facility] 2021-08-16 14:08:08 2021-08-16 14:38:22 [facility] 1.2.840.114 350.1.13.10 4.2.7.2.686 [id number] [facility] 2021-08-10 00:00:00 2021-08-10 00:00:00 [facility] 1.2.840.114 350.1.13.10 4.2.7.2.686 [id number] [id number] [facility] 2021-08-09 00:00:00 2021-08-09 00:00:00 Telephone Kedarterence [facility] BUILDING 1.2.840.114 350.1.13.10 4.2.7.2.686 [id number] [id number] [facility] 2021-08-08 00:00:00 2021-08-08 00:00:00 Telephone Ellie [facility] MEDICAL OFFICE BUILDING 1.2.840.114 350.1.13.10 4.2.7.2.686 [id number] [id number] [facility] 2021-08-08 00:00:00 2021-08-08 00:00:00 Telephone Ellie [facility] BUILDING 1.2.840.114 350.1.13.10 4.2.7.2.686 [id number] [id number] [facility] 2021-08-04 08:00:00 2021-08-04 23:59:00 Outpatient TAMMY LY [facility] [id number] [facility] 2021-08-04 08:00:00 2021-08-04 23:59:00 Outpatient R [facility] [id number] [facility] 2021-08-04 08:00:00 2021-08-04 23:59:00 Outpatient R TAMMY [facility] [id number] [facility] 2021-08-04 07:22:49 2021-08-04 23:59:00 [facility] 1.2.840.114 350.1.13.10 4.2.7.2.686 [id number] [facility] 2021-08-03 00:00:00 2021-08-03 00:00:00 Telephone Tammy Argueta [facility] 1.2.840.114 350.1.13.10 4.2.7.2.686 [id number] [facility] 2021-08-02 14:58:32 2021-08-02 15:13:32 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 [id number] [facility] 2021-08-02 10:30:00 2021-08-02 10:30:[address]Y [facility] [id number] [facility] 2021-07-14 00:00:00 2021-07-14 00:00:00 [facility] 1..840.114 350.1.13.10 4.2.7.2.686 [id number] [facility] 2021-07-08 08:00:00 2021-07-08 08:00:[address] LY [facility] [id number] [facility] 2021-07-06 10:30:00 2021-07-06 10:30:[address] [facility] [id number] [facility] 2021-07-04 00:00:00 2021-07-04 00:00:00 (TEL) STLMLC STLMLC [id number] [facility] 2021-06-24 00:00:00 2021-06-24 00:00:00 (TEL) STLMLC STLMLC [id number] [facility] 2021-06-22 08:00:00 2021-06-22 08:00:00 [facility] [id number] [facility] 2021-06-17 00:00:00 2021-06-17 00:00:00 (TEL) STLMLC STLMLC [id number] [facility] 2021-06-17 00:00:00 2021-06-17 00:00:00 OL DIG E/M SVC 11-20 MIN STLMLC STLMLC [id number] [facility] 2021-06-16 00:00:00 2021-06-16 00:00:00 (TEL) STLMLC STLMLC [id number] [facility] 2021-06-03 00:00:00 2021-06-03 00:00:00 (TEL) STLMLC STLMLC [id number] [facility] 2021-05-20 00:00:00 2021-05-20 00:00:00 Telephone [facility] 1.2.840.114 350.1.13.10 4.2.7.2.686 [id number] [facility] 2021-05-12 00:00:00 2021-05-12 00:00:00 (TEL) STLMLC STLMLC [id number] [facility] 2021-05-10 11:29:31 2021-05-10 12:11:58 Office Visit Ellie Tammy [facility] 1.2.840.114 350.1.13.10 4.2.7.2.686 [id number] [facility] 2021-05-10 11:40:00 2021-05-10 11:40:00 Outpatient R TAMMY [facility] [id number] [facility] 2021-04-15 00:00:00 2021-04-15 00:00:00 Outpatient STLMLC ST[facility]C [id number] [facility] 2021-04-05 14:40:00 2021-04-05 14:40:00 Outpatient R TAMMY [facility] [id number] [facility] 2021-04-05 14:30:00 2021-04-05 14:30:[address] [facility] [id number] [facility] 2021-03-31 00:00:00 2021-03-31 00:00:00 Outpatient STLMLC [facility]C [id number] [facility] 2021-03-31 00:00:00 2021-03-31 00:00:00 Outpatient STLMLC ST[facility]MLC [id number] [facility] 2021-03-25 13:00:00 2021-03-25 13:00:00 Outpatient R YUDITH CROWE [facility] [id number] [facility] 2021-02-16 00:00:00 2021-02-16 00:00:00 Outpatient STLMLC STLMLC [id number] [facility] 2021-01-03 00:00:00 2021-01-03 00:00:[address] [facility] [id number] [facility] 2020-12-13 00:00:00 2020-12-13 00:00:00 Outpatient STLMLC ST[facility]C [id number] [facility] 2020-12-06 14:00:00 2020-12-06 14:00:00 Outpatient R JACK GOSS [facility] [id number] [facility] 2020-12-01 00:00:00 2020-12-01 00:00:00 Outpatient STLMLC [facility]C [id number] [facility] 2020-12-01 00:00:00 2020-12-01 00:00:00 Outpatient STLMLC ST[facility]C [id number] [facility] 2020-10-05 14:01:57 2020-10-05 14:44:53 Laboratory Only [facility] 1.2.840.114 350.1.13.10 4.2.7.2.686 [id number] [id number] 2020-10-05 14:01:57 2020-10-05 14:44:53 Laboratory Only Pacemaker/I cd, [facility] 1.2.840.114 350.1.13.10 4.2.7.2.686 [id number] [id number] [facility] 2020-10-05 14:30:00 2020-10-05 14:30:[address] 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, 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 Jack Goss [facility] Building 1.2.840.114 350.1.13.10 4.2.7.2.686 [id number] [facility] 2020-09-06 16:44:57 2020-09-06 16:59:57 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 [id number] [facility] 2020-09-06 00:00:00 2020-09-06 00:00:00 Orders Only Doctor Unassigned, [place] [facility] 1.2.840.114 350.1.13.10 4.2.7.2.686 [id number] [facility] 2020-08-31 00:00:00 2020-08-31 00:00:00 Outpatient STLMLC ST[facility]C [id number] [facility] 2020-08-03 11:00:00 2020-08-03 11:00:[address] [facility] [id number] [facility] 2020-07-06 08:00:00 2020-07-06 08:00:[address] [facility] [id number] [facility] 2020-06-18 09:45:00 2020-06-18 09:45:00 [facility] [id number] [facility] 2020-05-14 09:30:00 2020-05-14 09:30:00 Outpatient 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 1.2.840.114 350.1.13.10 4.2.7.2.686 [id number] [id number] [facility] 2020-05-03 13:00:00 2020-05-03 13:00:[address] [facility] [id number] [facility] 2020-03-19 10:02:38 2020-03-19 21:31:06 Nurse Visit Visit, [facility] 1.840.114 350.1.13.10 4.2.7.2.686 [id number] [id number] [facility] 2020-03-19 10:00:00 2020-03-19 10:00:[address] [facility] [id number] [facility] 2020-03-19 00:00:00 2020-03-19 00:00:00 Orders Only Doctor Unassigned, [place] [facility] 1.840.114 350.1.13.10 4.2.7.2.686 [id number] [facility] 2020-03-01 13:30:00 2020-03-01 13:30:00 Outpatient R CHIDI FLOWERS [facility] [id number] [facility] 2020-02-25 08:15:00 2020-02-25 08:15:00 Outpatient [facility] Medicine [facility] [id number] [facility] 2020-02-25 08:00:00 2020-02-25 08:00:00 Outpatient [facility] [id number] [facility] 2020-01-22 00:00:00 2020-01-22 00:00:00 Refill Farhat Piña [facility] Building 1.840.114 350.1.13.10 4.2.7.2.686 [id number] [id number] [facility] 2020-01-22 00:00:00 2020-01-22 00:00:00 [facility] 1.284.114 350.1.13.10 4.2.7.2.686 [id number] [id number] [facility] 2020-01-05 15:23:00 2020-01-05 15:23:00 [address] [facility] [address] [facility] [id number] [facility] 2019-12-01 15:01:39 2019-12-01 15:31:39 Office Visit Fac, Adc Heart Failure Cardio Farhat Piña [facility] Building 1.2.840.114 350.1.13.10 4.2.7.2.686 [id number] [id number] [facility] 2019-12-01 15:00:00 2019-12-01 15:00:[address] 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 Farhat Piña [facility] Building 1.2.840.114 350.1.13.10 4.2.7.2.686 [id number] [facility] 2019-11-29 10:15:00 2019-11-29 10:15:00 [facility] [id number] [facility] 2019-11-20 14:09:20 2019-11-24 08:17:57 Laboratory Only Pc, Adc Echo Room - [facility] Building 1.2.840.114 350.1.13.10 4.2.7.2.686 [id number] [facility] 2019-11-23 00:00:00 2019-11-23 00:00:00 Telephone Karlene Nelson [facility] 1.284.114 350.1.13.10 4.2.7.2.686 [id number] [id number] [facility] 2019-11-20 16:00:00 2019-11-20 16:00:[address] [facility] [id number] [facility] 2019-11-20 14:00:00 2019-11-20 14:00:[address] [facility] [id number] [facility] 2019-11-10 00:00:00 2019-11-10 00:00:00 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 1.2.840.114 350.1.13.10 4.2.7.2.686 [id number] [facility] 2019-10-21 00:00:00 2019-10-21 00:00:00 Refill Farhat Piñaahim [facility] 1.2.840.114 350.1.13.10 4.2.7.2.686 [id number] [id number] [facility] 2019-10-17 09:26:33 2019-10-17 13:13:48 Nurse Visit Visit, Adc Nurse [facility] 1.2.840.114 350.1.13.10 4.2.7.2.686 [id number] [id number] [facility] 2019-10-17 00:00:00 2019-10-17 00:00:00 Orders Only Doctor Unassigned, Siss[place] [facility] 1.2.840.114 350.1.13.10 4.2.7.2.686 [id number] [facility] 2019-10-06 15:39:00 2019-10-06 15:39:00 [address] [facility] [id number] [facility] 2019-08-07 15:15:00 2019-08-07 15:15:00 [address] [facility] [facility] [address] [facility] [id number] [facility] 2019-07-16 13:31:00 2019-07-16 13:31:00 [address] [facility] [id number] [facility] 2019-07-10 11:31:00 2019-07-10 11:31:00 [address] [facility] [address] [facility] [id number] [facility] 2019-06-16 13:45:00 2019-06-16 13:45:00 [address] [facility] [id number] [facility] 2019-06-06 11:58:00 2019-06-06 11:58:00 [facility] [id number] [facility] 2019-06-04 11:13:00 2019-06-04 11:13:00 [facility] [id number] [facility] 2019-06-03 11:31:00 2019-06-03 11:31:00 [address] [facility] [address] [facility] [id number] [facility] 2019-05-05 13:05:32 2019-05-13 15:22:02 Office Visit Fac, Adc Heart Failure Cardio Giacomo Mae [facility] 1.2.840.114 350.1.13.10 4.2.7.2.686 [id number] [facility] 2019-05-13 00:00:00 2019-05-13 00:00:00 Telephone Fac, Adc Heart Failure Cardio [facility] 1.2.840.114 350.1.13.10 4.2.7.2.686 [id number] [id number] [facility] 2019-05-13 00:00:00 2019-05-13 00:00:00 Orders Only Doctor Unassigned, Sisseton [facility] 1.2840.114 350.1.13.10 4.2.7.2.686 [id number] [facility] 2019-05-01 00:00:00 2019-05-01 00:00:00 Telephone Fac, Adc Heart Failure Cardio [facility] 1.2840.114 350.1.13.10 4.2.7.2.686 [id number] [facility] 2019-05-01 00:00:00 2019-05-01 00:00:00 Telephone Fac, Adc Heart Failure Cardio [facility] 1.2840.114 350.1.13.10 4.2.7.2.686 [id number] 059 [id number] [facility] 2019-04-01 13:00:00 2019-04-01 13:00:00 Outpatient [facility] [id number] [facility] 2018-12-25 15:45:00 2018-12-25 15:45:00 Outpatient [facility] [id number] [facility] 2018-10-06 00:00:00 2018-10-06 00:00:00 Orders Only Doctor Unassigned, S[place] [facility] 1.2840.114 350.1.13.10 4.2.7.2.686 [id number] [id number] [facility] Results Test Description Test Time Test Comments Results Result Co mments Source [facility] REFLEX TO FREE [id number] 00:00:00* Test Item Value Reference Range Interpretation Comme nts TSH REFLEX TO FREE T4 (test code = 58683-7) 0.585 UIU/ML See_Comment [Automated messa ge] The system which generated this result transmitted reference range: 0.400-4.100 UIU/ML. The reference range was not used to interpret this result as normal/abnormal. LIPID PANEL WITH REFLEX DIRECT [id number] 00:00:00* Test Item Value Reference Range Interpretation Comme nts CALC LDL CHOL (test code = 21345-7) 79 MG/DL See_Comment [Automated messa ge] The system which generated this result transmitted reference range: <100 MG/DL. The reference range was not used to interpret this result as normal/abnormal. CHOLESTEROL (test code = 2093-3) 166 MG/DL See_Comment [Automated messa ge] The system which generated this result transmitted reference range: <200 MG/DL. The reference range was not used to interpret this result as normal/abnormal. HDL CHOLESTEROL (test code = 2085-9) 69 MG/DL See_Comment [Automated messa ge] The system which generated this result transmitted reference range: >39 MG/DL. The reference range was not used to interpret this result as normal/abnormal. RISK RATIO LDL/HDL (test code = 48409-2) 1.14 RATIO See_Comment [Automated message] The system which generated this result transmitted reference range: <3.22 RATIO. The reference range was not used to interpret this result as normal/abnormal. TRIGLYCERIDES (test code = 2571-8) 97 MG/DL See_Comment [Automated messa ge] The system which generated this result transmitted reference range: <150 MG/DL. The reference range was not used to interpret this result as normal/abnormal. PATHOLOGIST SMEAR [id number] 00:00:00* Test Item Value Reference Range Interpretation Comme nts BASOPHILS (test code = 16131-1) 0.8 % COMMENTS (test code = 41025-8) (NOTE) DIAGNOSIS: (test code = 41204-3) (NOTE) EOSINOPHILS (test code = 43675-9) 4.4 % HEMATOCRIT (test code = 92605-7) 42.8 % See_Comment [Automated messa ge] The system which generated this result transmitted reference range: 34.0-45.0 %. The reference range was not used to interpret this result as normal/abnormal. HEMOGLOBIN (test code = 718-7) 14.2 G/DL See_Comment [Automated messa ge] The system which generated this result transmitted reference range: 11.5-15.5 G/DL. The reference range was not used to interpret this result as normal/abnormal. LYMPHOCYTES (test code = 12743-4) 34.9 % MCH (test code = 37923-0) 31.9 PG See_Comment [Automated messa ge] The system which generated this result transmitted reference range: 25.0-33.0 PG. The reference range was not used to interpret this result as normal/abnormal. MCHC (test code = 41800-5) 33.2 G/DL See_Comment [Automated messa ge] The system which generated this result transmitted reference range: 31.0-36.0 G/DL. The reference range was not used to interpret this result as normal/abnormal. MCV (test code = 12190-4) 96.2 fL See_Comment [Automated messa ge] The system which generated this result transmitted reference range: 80.0-99.0 fL. The reference range was not used to interpret this result as normal/abnormal. MICROSCOPIC DESCRIPTION: (test code = 14993-0) (NOTE) MONOCYTES (test code = 58493-3) 10.1 % NEUTROPHILS (test code = 65945-0) 49.5 % NUCLEATED RBCS (test code = 95300-8) 0.0 /100 WBC'S See_Comment [Automated messa ge] The system which generated this result transmitted reference range: 0.0 /100 WBC'S. The reference range was not used to interpret this result as normal/abnormal. PATHOLOGIST: (test code = 22926-5) (NOTE) PLATELET COUNT (test code = 11678-0) 245 K/UL See_Comment [Automated messa ge] The system which generated this result transmitted reference range: 130-400 K/UL. The reference range was not used to interpret this result as normal/abnormal. RBC (test code = 13546-9) 4.45 M/UL See_Comment [Automated messa ge] The system which generated this result transmitted reference range: 3.80-5.40 M/UL. The reference range was not used to interpret this result as normal/abnormal. RDW (test code = 34325-1) 11.7 % See_Comment [Automated messa ge] The system which generated this result transmitted reference range: 11.5-15.0 %. The reference range was not used to interpret this result as normal/abnormal. WBC (test code = 92610-7) 3.9 K/UL See_Comment [Automated messa ge] The system which generated this result transmitted reference range: 3.5-11.0 K/UL. The reference range was not used to interpret this result as normal/abnormal. COMPREHENSIVE METABOLIC [id number] 00:00:00* Test Item Value Reference Range Interpretation Comme nts ALBUMIN (test code = 1751-7) 4.4 G/DL See_Comment [Automated messa ge] The system which generated this result transmitted reference range: 3.5-5.2 G/DL. The reference range was not used to interpret this result as normal/abnormal. ALKALINE PHOSPHATASE (test code = 6768-6) 118 U/L See_Comment [Automated message] The system which generated this result transmitted reference range: 40-142 U/L. The reference range was not used to interpret this result as normal/abnormal. BILIRUBIN, TOTAL (test code = 1975-2) 0.4 MG/DL See_Comment [Automated message] The system which generated this result transmitted reference range: <=1.2 MG/DL. The reference range was not used to interpret this result as normal/abnormal. BUN (test code = 3094-0) 11 MG/DL See_Comment [Automated messa ge] The system which generated this result transmitted reference range: 8-23 MG/DL. The reference range was not used to interpret this result as normal/abnormal. CALCIUM (test code = 09757-7) 9.4 MG/DL See_Comment [Automated messa ge] The system which generated this result transmitted reference range: 8.5-10.5 MG/DL. The reference range was not used to interpret this result as normal/abnormal. CALC A/G RATIO (test code = 1759-0) 1.8 RATIO See_Comment [Automated Effektifa ge] The system which generated this result transmitted reference range: 1.0-2.6 RATIO. The reference range was not used to interpret this result as normal/abnormal. CALC BUN/CREAT (test code = 3097-3) 13 RATIO See_Comment [Automated messa ge] The system which generated this result transmitted reference range: 6-28 RATIO. The reference range was not used to interpret this result as normal/abnormal. CALC GLOBULIN (test code = 83346-4) 2.4 G/DL See_Comment [Automated messa ge] The system which generated this result transmitted reference range: 1.9-3.7 G/DL. The reference range was not used to interpret this result as normal/abnormal. CARBON DIOXIDE (test code = 1963-8) 30 MEQ/L See_Comment [Automated messa ge] The system which generated this result transmitted reference range: 19-31 MEQ/L. The reference range was not used to interpret this result as normal/abnormal. CHLORIDE (test code = 2075-0) 101 MEQ/L See_Comment [Automated messa ge] The system which generated this result transmitted reference range: 95-107 MEQ/L. The reference range was not used to interpret this result as normal/abnormal. CREATININE (test code = 2160-0) 0.86 MG/DL See_Comment [Automated messa ge] The system which generated this result transmitted reference range: 0.60-1.30 MG/DL. The reference range was not used to interpret this result as normal/abnormal. eGFR (2020 CKD-EPI) (test code = 95709-1) 71 ML/MIN/1.73 See_Comment [Automated messa ge] The system which generated this result transmitted reference range: >60 ML/MIN/1.73. The reference range was not used to interpret this result as normal/abnormal. GLUCOSE (test code = 1558-6) 89 MG/DL See_Comment [Automated messa ge] The system which generated this result transmitted reference range: 70-99 MG/DL. The reference range was not used to interpret this result as normal/abnormal. POTASSIUM (test code = 2823-3) 3.9 MEQ/L See_Comment [Automated messa ge] The system which generated this result transmitted reference range: 3.5-5.4 MEQ/L. The reference range was not used to interpret this result as normal/abnormal. PROTEIN, TOTAL (test code = 2885-2) 6.8 G/DL See_Comment [Automated messa ge] The system which generated this result transmitted reference range: 6.1-8.3 G/DL. The reference range was not used to interpret this result as normal/abnormal. AST (test code = 1920-8) 74 U/L See_Comment H [Automated messa ge] The system which generated this result transmitted reference range: 9-40 U/L. The reference range was not used to interpret this result as normal/abnormal. ALT (test code = 1742-6) 34 U/L See_Comment [Automated messa ge] The system which generated this result transmitted reference range: 5-40 U/L. The reference range was not used to interpret this result as normal/abnormal. SODIUM (test code = 2951-2) 139 MEQ/L See_Comment [Automated messa ge] The system which generated this result transmitted reference range: 133-146 MEQ/L. The reference range was not used to interpret this result as normal/abnormal. BOEBLRAZ9970-69-79 00:00:00* Test Item Value Reference Range Interpretation Comme nts FERRITIN (test code = 39898-4) 78 NG/ML See_Comment [Automated messa ge] The system which generated this result transmitted reference range: 13-200 NG/ML. The reference range was not used to interpret this result as normal/abnormal. FREE T4 (THYROXINE)2023-03-02 00:00:00* Test Item Value Reference Range Interpretation Comme nts FREE T4 (THYROXINE) (test code = 3024-7) 1.77 NG/DL See_Comment [Automated messa ge] The system which generated this result transmitted reference range: 0.80-1.90 NG/DL. The reference range was not used to interpret this result as normal/abnormal. TSH REFLEX TO FREE [id number] 00:00:00* Test Item Value Reference Range Interpretation Comme nts TSH REFLEX TO FREE T4 (test code = 61951-7) 0.246 UIU/ML See_Comment L [Automated messa ge] The system which generated this result transmitted reference range: 0.400-4.100 UIU/ML. The reference range was not used to interpret this result as normal/abnormal. LIPID PANEL WITH REFLEX DIRECT [id number] 00:00:00* Test Item Value Reference Range Interpretation Comme nts CALC LDL CHOL (test code = 02218-8) 86 MG/DL See_Comment [Automated messa ge] The system which generated this result transmitted reference range: <100 MG/DL. The reference range was not used to interpret this result as normal/abnormal. CHOLESTEROL (test code = 2093-3) 173 MG/DL See_Comment [Automated messa ge] The system which generated this result transmitted reference range: <200 MG/DL. The reference range was not used to interpret this result as normal/abnormal. HDL CHOLESTEROL (test code = 2085-9) 68 MG/DL See_Comment [Automated messa ge] The system which generated this result transmitted reference range: >39 MG/DL. The reference range was not used to interpret this result as normal/abnormal. RISK RATIO LDL/HDL (test code = 11304-6) 1.26 RATIO See_Comment [Automated message] The system which generated this result transmitted reference range: <3.22 RATIO. The reference range was not used to interpret this result as normal/abnormal. TRIGLYCERIDES (test code = 2571-8) 97 MG/DL See_Comment [Automated messa ge] The system which generated this result transmitted reference range: <150 MG/DL. The reference range was not used to interpret this result as normal/abnormal. PATHOLOGIST SMEAR [id number] 00:00:00* Test Item Value Reference Range Interpretation Comme nts BASOPHILS (test code = 42542-7) 0.0 % DIAGNOSIS: (test code = 51796-1) (NOTE) COMMENTS (test code = 32310-9) (NOTE) EOSINOPHILS (test code = 56971-0) 3.4 % HEMATOCRIT (test code = 34521-5) 41.6 % See_Comment [Automated messa ge] The system which generated this result transmitted reference range: 34.0-45.0 %. The reference range was not used to interpret this result as normal/abnormal. HEMOGLOBIN (test code = 718-7) 13.9 G/DL See_Comment [Automated messa ge] The system which generated this result transmitted reference range: 11.5-15.5 G/DL. The reference range was not used to interpret this result as normal/abnormal. LYMPHOCYTES (test code = 07602-0) 39.7 % MCH (test code = 68449-0) 32.0 PG See_Comment [Automated messa ge] The system which generated this result transmitted reference range: 25.0-33.0 PG. The reference range was not used to interpret this result as normal/abnormal. MCHC (test code = 68787-4) 33.4 G/DL See_Comment [Automated messa ge] The system which generated this result transmitted reference range: 31.0-36.0 G/DL. The reference range was not used to interpret this result as normal/abnormal. MCV (test code = 85762-5) 95.6 fL See_Comment [Automated messa ge] The system which generated this result transmitted reference range: 80.0-99.0 fL. The reference range was not used to interpret this result as normal/abnormal. MICROSCOPIC DESCRIPTION: (test code = 32134-0) (NOTE) MONOCYTES (test code = 40681-0) 7.8 % NEUTROPHILS (test code = 99023-6) 49.1 % PATHOLOGIST: (test code = 77345-9) (NOTE) PLATELET COUNT (test code = 50192-8) 230 K/UL See_Comment [Automated messa ge] The system which generated this result transmitted reference range: 130-400 K/UL. The reference range was not used to interpret this result as normal/abnormal. RBC (test code = 32785-0) 4.35 M/UL See_Comment [Automated messa ge] The system which generated this result transmitted reference range: 3.80-5.40 M/UL. The reference range was not used to interpret this result as normal/abnormal. RDW (test code = 40024-4) 13.8 % See_Comment [Automated messa ge] The system which generated this result transmitted reference range: 11.5-15.0 %. The reference range was not used to interpret this result as normal/abnormal. WBC (test code = 90040-1) 3.2 K/UL See_Comment L [Automated messa ge] The system which generated this result transmitted reference range: 3.5-11.0 K/UL. The reference range was not used to interpret this result as normal/abnormal. COMPREHENSIVE METABOLIC [id number] 00:00:00* Test Item Value Reference Range Interpretation Comme nts ALBUMIN (test code = 1751-7) 4.4 G/DL See_Comment [Automated messa ge] The system which generated this result transmitted reference range: 3.5-5.2 G/DL. The reference range was not used to interpret this result as normal/abnormal. ALKALINE PHOSPHATASE (test code = 6768-6) 133 U/L See_Comment [Automated message] The system which generated this result transmitted reference range: 40-142 U/L. The reference range was not used to interpret this result as normal/abnormal. BILIRUBIN, TOTAL (test code = 1975-2) 0.3 MG/DL See_Comment [Automated message] The system which generated this result transmitted reference range: <=1.2 MG/DL. The reference range was not used to interpret this result as normal/abnormal. BUN (test code = 3094-0) 14 MG/DL See_Comment [Automated messa ge] The system which generated this result transmitted reference range: 8-23 MG/DL. The reference range was not used to interpret this result as normal/abnormal. CALCIUM (test code = 27859-3) 9.6 MG/DL See_Comment [Automated messa ge] The system which generated this result transmitted reference range: 8.5-10.5 MG/DL. The reference range was not used to interpret this result as normal/abnormal. CALC A/G RATIO (test code = 1759-0) 1.7 RATIO See_Comment [Automated messa ge] The system which generated this result transmitted reference range: 1.0-2.6 RATIO. The reference range was not used to interpret this result as normal/abnormal. CALC BUN/CREAT (test code = 3097-3) 15 RATIO See_Comment [Automated messa ge] The system which generated this result transmitted reference range: 6-28 RATIO. The reference range was not used to interpret this result as normal/abnormal. CALC GLOBULIN (test code = 13825-7) 2.6 G/DL See_Comment [Automated messa ge] The system which generated this result transmitted reference range: 1.9-3.7 G/DL. The reference range was not used to interpret this result as normal/abnormal. CARBON DIOXIDE (test code = 1963-8) 27 MEQ/L See_Comment [Automated messa ge] The system which generated this result transmitted reference range: 19-31 MEQ/L. The reference range was not used to interpret this result as normal/abnormal. CHLORIDE (test code = 2075-0) 103 MEQ/L See_Comment [Automated messa ge] The system which generated this result transmitted reference range: 95-107 MEQ/L. The reference range was not used to interpret this result as normal/abnormal. CREATININE (test code = 2160-0) 0.95 MG/DL See_Comment [Automated messa ge] The system which generated this result transmitted reference range: 0.60-1.30 MG/DL. The reference range was not used to interpret this result as normal/abnormal. eGFR (2020 CKD-EPI) (test code = 59373-6) 63 ML/MIN/1.73 See_Comment [Automated messa ge] The system which generated this result transmitted reference range: >60 ML/MIN/1.73. The reference range was not used to interpret this result as normal/abnormal. GLUCOSE (test code = 1558-6) 91 MG/DL See_Comment [Automated messa ge] The system which generated this result transmitted reference range: 70-99 MG/DL. The reference range was not used to interpret this result as normal/abnormal. POTASSIUM (test code = 2823-3) 4.4 MEQ/L See_Comment [Automated messa ge] The system which generated this result transmitted reference range: 3.5-5.4 MEQ/L. The reference range was not used to interpret this result as normal/abnormal. PROTEIN, TOTAL (test code = 2885-2) 7.0 G/DL See_Comment [Automated messa ge] The system which generated this result transmitted reference range: 6.1-8.3 G/DL. The reference range was not used to interpret this result as normal/abnormal. AST (test code = 1920-8) 65 U/L See_Comment H [Automated messa ge] The system which generated this result transmitted reference range: 9-40 U/L. The reference range was not used to interpret this result as normal/abnormal. ALT (test code = 1742-6) 30 U/L See_Comment [Automated messa ge] The system which generated this result transmitted reference range: 5-40 U/L. The reference range was not used to interpret this result as normal/abnormal. SODIUM (test code = 2951-2) 140 MEQ/L See_Comment [Automated messa ge] The system which generated this result transmitted reference range: 133-146 MEQ/L. The reference range was not used to interpret this result as normal/abnormal. STREP A [id number] 00:00:00* Test Item Value Reference Range Interpretation Comme nts Result (test code = 53935-9) NEGATIVE POC, COVID 19 Antigen + Flu by SofiaPOC, COVID 19 Antigen + Flu by SofiaSARS-COV 2 AntigenSARS-COV 2 Antigen Notes Date/Time Note Provider Source 2023-10-01 11:15:05 uHbvXZDwxIKf7WbnkGkI hMfyd94jM0lhJe wReQ1Jjs5Jf1mMIBmLV4Go+gNF32XD9576 -01-08T11:15:05Addended by: MARIA LUISA MARTINEZ RN on: 10/01/2023 11:15 AMModules accepted: Orders 80770-0Nojhboqt NtvvyuxuXC0957-86-99D19:15:05Adden dum DocumentTXT1.2.840.973365.1.13.104 .2.7.2.252255|5123001169BHVkbfvohd for patient gzti59777-6EfbjHQOEHKNLJZKWaggvuez d C-CDA narrative [id number] Michelle VEGA[address] Ep[id number] 08PJUVBZJNNRMAUQBKTKGZSB3715-06-40 T11:15:051.2.840.433660.1.72.3.15| 1.2.840.463868.1.13.104.2.7.2.7278 79_[id number] Maria Luisa Martinez RN [facility] 2023-10-01 11:14:49 VDZf03G3nuy9FPiRIE8x gHFUoPr6ocC3Zg 23MNwZ632q05JFojdJJj2AQlc5dxWk7229 -01-08T11:14:49 Medication record updated. 55073-5Scnkuebww encounter RawxGK7540-36-74Y72:15:01Telephone encounter NoteTXT1.2.840.052926.1.13.104.2.7 .2.890629|[id number] for patient kmin16779-3WehjEHZNGOKYSJHSsjwankr d C-CDA narrative text[id number] 39IAEBTRCPKTQRBDVMFHAFIB4442-70-41 T11:15:011.2.840.911565.1.72.3.15| 1.2.840.204239.1.13.104.2.7.2.7278 79_[id number] [facility] 2023-10-01 10:51:18 lo2O/c4BqiA/sUDJdKpi TX7Iju4a8iNnNe 0VODdczKQF5D0erG6yBcBGoRJ0Qn0C5601 -01-08T10:51:18 Stop both 53920-8Plqgjzvtv encounter RnzpTT3043-62-42O91:51:24Telephone encounter NoteTXT1.2.840.565179.1.13.104.2.7 .2.948628|7703354218MFNxsvcxjun for patient vdle44918-4OhndTVOMUVIHZDQZujvtuwj d C-CDA narrative text[id number] 37FDDPKBYTMWHSMYAXMTNDYX1891-38-79 T10:51:241.2.840.124228.1.72.3.15| 1.2.840.505528.1.13.104.2.7.2.7278 79_[id number] [facility] 2023-10-01 10:47:28 tS+HBncQOL2AmNthUt6q T+WwUak6bq76ij 104E6z5GWqrFKjm3CeZKAzZ3hYvk+83032 T10:47:28 Patient calling stating that she is unable to tolerate the Jardiance or the Spironolactone.She tried coming off of the spironolactone for 1 week which did improve her dizziness but she is still having GI symptoms and not feeling well on the jardiance. She states that she was feeling fine before the medication changes so she does not want to continue with the jardiance or the spironolactone.She plans to stop the jardiance as well now to see if it improves her symptoms.Routing to notify Dr. Flowers 52757-4Choaghamd encounter WmcyJB5817-60-92A59:50:15Telephone encounter NoteTXT1.2.840.828580.1.13.104.2.7 .2.322930|5593775954YDGitensxxy for patient tuzo03385-3HpljQDYUBMAYLUYPsqyvzfu d C-CDA narrative srwi300429064Rqgs Michelle VEGA[address] OwavEl[id number] 59MMYCJGZNDKLEZUQZSNCJWZ2718-88-33 T10:50:151.2.840.859100.1.72.3.15| 1.2.840.808130.1.13.104.2.7.2.7278 79_[id number] Maria Luisa Martinez RN [facility] 2023-10-01 10:40:29 soTep/nl+FgLxenCNY1c pvxHPI8xMvOx1a 82/p7ey5dJQw+KBdMewd8HkXXAaWYY6701 -01-08T10:40:29 Maryan Tripp is a 73 year old femalestomach issues, fever, night sweats comes and goes since taking empagliflozin 10 mg (Jardiance). Please advise 84774-1Fosldojwf encounter TijdCW1193-21-54A01:41:53Telephone encounter NoteTXT1.2.840.638187.1.13.104.2.7 .2.169899|1701121695XOKkfwqwbrj for patient vzkz65909-1TnrdCVXBMDNZSYZBlwfecgm d C-CDA narrative [id number] [id number] 18HEFKOOUBSCVHKEVELVODGF6541-70-01 T10:41:531.2.840.938508.1.72.3.15| 1.2.840.156417.1.13.104.2.7.2.7278 79_[id number] Carie De Paz [facility] 2023-09-25 15:18:33 174V7ovBvQdQbeCHhwBf agF8ap2T7OdGDI +mqPNdRhbBYPqcz8EVjlPPGk5+J7X/2023T15:18:33 Discussed with patient. She will try holding to Jardiance to see if any improvement in symptoms. She will call back with update. 46439-4Garevinxs encounter VtwmAY7464-58-56X68:19:07Telephone encounter NoteTXT1.2.840.015836.1.13.104.2.7 .2.727498|4098941047YAMezrocarn for patient ugvm07034-3NbxbWELDJWVMSUHRbphzbds d C-CDA narrative gdac733804992Kfck Sheavly [id number] 00BBOVQWAXMLXZVFNIOWYEWM8597-09-39 T15:19:071.2.840.137172.1.72.3.15| 1.2.840.211698.1.13.104.2.7.2.7278 79_[id number] Maria Luisa Martinez RN [facility] 2023-09-25 12:57:44 SFL16Yh3ObC3VRrexDon eGIK9ttiEJiBHb t0ZlT5M+NF6Va5lIqQc6OzQnC6v8Hx6523 -01-02T12:57:44 More likely from Jardiance. Hold Jardiance see if gets better. 54836-9Shkpuuetq encounter TnglUO6301-42-64S77:58:04Telephone encounter NoteTXT1.2.840.689812.1.13.104.2.7 .2.214844|[id number] for patient fawu21319-9JdnaIAYWOASXZCRTfnymvhm d C-CDA narrative textUT[address] VtqcEh[id number] 28UBYYHUWSPMIRWNWLUAQHWY3360-95-87 T12:58:041.2.840.812144.1.72.3.15| 1.2.840.669285.1.13.104.2.7.2.7278 79_[id number] [facility] 2023-09-25 12:38:40 Lotxh8Clw1vgQ3/lw8pa j4P6ox8JqNPTgK yXNaI3dAw3ecz4e31Oiey+6fIkHtko8358 -01-02T12:38:40 Patient call regarding possible side effects of the new medications Jardiance and Spironolactone. Stated she has been having dizziness, frequent urination and diarrhea since starting these medications. She stated that she thinks it could be the Spironolactone. Discussed stopping the Spironolactone to see if side effects improve. She will call back in 2 days to discuss resultsRouted to Dr Flowers for advice 75121-3Rudsdhlmf encounter ZrvpFB8152-52-59U30:43:18Telephone encounter NoteTXT1.2.840.830572.1.13.104.2.7 .2.626746|0353022197QRAkllzcvmy for patient jmkq73076-0HhjwSVCKLUOJMMQGhzsjuoc d C-CDA narrative rjjq974761397Ymyjk A Roller RN[address] Of[id number] 35JVAXNCCPRNNWOYUWFVXNKX4948-75-16 T12:43:181.2.840.372593.1.72.3.15| 1.2.840.658906.1.13.104.2.7.2.7278 79_[id number] Melissa Mirza RN [facility] 2023-09-21 14:45:00 wUruxY8o7C/X+FnZOUcR 5bZmYD13Dvwp1k DvHAE85CtSs6C925QgloE7XfE//wke76352022T14:45:00 Images from the original note were not included.Pt is here to complete labs for Chidi Flowers MD. Alireza Decker 09/21/2023 2:32 PMVenipuncture collection performed by clean technique on the right anticubitus. Total of 1 attempts were made. Slight pressure and a bandage/dressing were applied to the site(s). The patient experienced no complications. The following specimens were processed according to instructions and sent to [facility] laboratories per lab order on 09/21/2023:LT BLUESST 1REDLAV 1PPTDK GREEN (LiHep)DK GREEN (SodH)GRAYDK BLUE (K2)DK BLUE (S)ACDBlood CultureNIPT/NTD 25811-5Hxlgj CiojJA8619-96-92K85:36:42Nurse NoteTXT1.2.840.332073.1.13.104.2.7 .2.322385|[id number] for patient ptqn55117-7Yvvgt NoteLNNARRATIVEFormatted C-CDA narrative textUT[address] YugqKeddjmjpzEoibxnqouXHYJ04526229 14FRWMPNUNUKLJAKCFTZIIDT7546-57-76 T14:36:421.2.840.765755.1.72.3.15| 1.2.840.164702.1.13.104.2.7.2.7278 79_[id number] [facility]"
[2023-11-15 07:55] LABS: Specific Gravity 1.025 (1.005-1.030); Urine Bacteria <20 /HPF (<20); Urine Bilirubin NEGATIVE (Negative); Urine Blood Negative (Negative); Urine Clarity Extremely Turbid (Clear); Urine Color Yellow (Yellow); Urine Glucose NEGATIVE (Negative); Urine Mucus 1+ /HPF (None Seen); Urine Protein TRACE (Negative); Urine RBC <5 /HPF (None Seen); Urine Urobilinogen Normal (Normal); Urine WBC Clump Rare /HPF (None Seen)
[2023-11-15 07:57] LABS: Absolute Lymphocytes (CBC) 1.1 K/uL (0.7-4.9); Hematocrit 40.2 % (36.0-45.0); Lymphocytes % 23.8 % (15.3-44.8); MCV 95.9 fL (80-100); MPV 7.6 fL (7.6-11.3); Platelets 203 thou/uL (152-406)
[2023-11-15 08:18] LABS: Albumin 3.1 g/dL (3.4-5.0); Bilirubin Total 0.5 mg/dL (0.2-1.0); Potassium 3.6 mEq/L (3.5-5.1); Protein, Total 6.4 g/dL (6.4-8.2)
--- NOTE | 2023-11-15 08:59 | RAD REPORT ---
EXAM DESCRIPTION: CTAbdomen Pelvis W Contrast - 11/15/2023 8:29 am CLINICAL HISTORY: Abdominal pain. ABD PAIN COMPARISON: No comparisonsAbdomen Pelvis W Contrast dated 08/03/2017 TECHNIQUE: Biphasic CT imaging of the abdomen and pelvis was performed with 100 ml non-ionic IV cont rast. All CT scans are performed using dose optimization technique as appropriate and may include automated exposure control or mA/KV adjustment according to patient size. FINDINGS: The lung bases are clear. The liver contains evidence of 2 hemangiomata. These have long-standing stability. No aggressive live r lesion or biliary dilatation cholecystectomy clips. Spleen, pancreas, adrenal glands and kidneys ar e within normal limits. No bowel obstruction, free air, free fluid or abscess. Prominent sigmoid diverticulosis coli is prese nt without evidence of diverticulitis. The appendix is normal. No evidence of significant lymphadeno kailee. Left hip arthroplasty. IMPRESSION: No acute intra-abdominal or pelvic finding. Prominent sigmoid diverticulosis coli without diverticulitis.
--- NOTE | 2023-11-15 09:33 | EDPHYS ---
Physician Documentation [facility] Name: Maryan Tripp Age: 73 yrs Sex: Female : 1950 Arrival Date: 11/15/2023 Time: 06:55 Bed 7 Private MD: [facility] ED Physician Abelino Gabriel HPI: 11/15 07:39 This 73 yrs old Female presents to ER via Unassigned with complaints of Abdominal Pain. rn 07:39 The patient presents with abdominal pain. Onset: The symptoms/episode began/occurred 1 rn week(s) ago. The symptoms do not radiate. Associated signs and symptoms: Pertinent positives: nausea and vomiting, diarrhea, Pertinent negatives: fever, hematuria, shortness of breath, vomiting blood. The symptoms are described as achy, crampy, intermittent. Modifying factors: The symptoms are alleviated by nothing, the symptoms are aggravated by touching the area. Severity of pain: At its worst the pain was mild in the emergency department the pain is unchanged. The patient has not experienced similar symptoms in the past. Historical: - Allergies: 07:10 Sulfa (Sulfonamide Antibiotics); rs5 - PMHx: 07:10 cardiac stents; Thyroid problem; Myocardial infarction; COPD; CHF; Pacemaker; rs5 /defibrilator; - PSHx: 07:10 hip replacement; rs5 - Immunization history:: Adult Immunizations unknown. - Family history:: not pertinent. - Social history:: Smoking status: Patient denies any tobacco usage or history of. - Hospitalizations: : No recent hospitalization is reported. ROS: 07:39 Constitutional: Negative for fever, chills, and weight loss, Cardiovascular: Negative rn for chest pain, palpitations, and edema, Respiratory: Negative for shortness of breath, cough, wheezing, and pleuritic chest pain, Abdomen/GI: Positive for lower abdominal pain/nausea/vomiting/diarrhea MS/Extremity: Negative for injury and deformity, Skin: Negative for injury, rash, and discoloration, Neuro: Negative for headache, weakness, numbness, tingling, and seizure, Exam: 07:39 Constitutional: This is a well developed, well nourished patient who is awake, alert, rn and in no acute distress. Cardiovascular: Regular rate and rhythm. No pulse deficits. Respiratory: No increased work of breathing, no retractions or nasal flaring. Abdomen/GI: Soft, mild suprapubic/left lower quadrant/right lower quadrant tenderness. No rebound or guarding. MS/ Extremity: Pulses equal, no cyanosis. Neuro: Awake and alert, GCS 15 Vital Signs: 07:15 BP 143 / 107; Pulse 72; Resp 16; Temp 98.4; Pulse Ox 98% ; ko1 08:00 BP 131 / 72; Pulse 78; Resp 15; Pulse Ox 99% ; ko1 09:45 BP 135 / 76; Pulse 82; Resp 18; Pulse Ox 99% on R/A; rs5 MDM: 06:59 Patient medically screened. rn 09:32 Differential diagnosis: bowel obstruction, diverticulitis, non-specific abd pain, rn pancreatitis, Ureterolithiasis, urinary tract infection. Data reviewed: vital signs, nurses notes, lab test result(s), radiologic studies, CT scan, and as a result, I will discharge patient. Counseling: I had a detailed discussion with the patient and/or guardian regarding the historical points, exam findings, and any diagnostic results supporting the discharge/admit diagnosis, lab results, radiology results, the need for outpatient follow up, to return to the emergency department if symptoms worsen or persist or if there are any questions or concerns that arise at home. Special discussion: Based on the patient's Hx, exam, and Dx evaluation, there is no indication for emergent surgery or inpatient Tx. It is understood by the patient/guardian that if the Sx's persist or worsen they need to return immediately for re-evaluation. I discussed with the patient/guardian in detail that at this point there is no indication for admission to the hospital. It is understood, however, that if the symptoms persist or worsen the patient needs to return immediately for re-evaluation. 11/15 07:25 Order name: CBC with Diff; Complete Time: 09: rn 11/15 07:25 Order name: CMP; Complete Time: : rn 11/15 07:25 Order name: Lipase; Complete Time: 09: rn 11/15 07:25 Order name: Urinalysis w/ reflexes; Complete Time: 09: rn 11/15 08:00 Order name: Urine Culture EDMS 11/15 07:25 Order name: CT Abd/Pelvis - IV Contrast Only; Complete Time: 09: rn 11/15 07:25 Order name: IV Saline Lock; Complete Time: 07:48 rn 11/15 07:25 Order name: Labs collected and sent; Complete Time: 07:48 rn Administered Medications: 07:48 Drug: Ondansetron IVP 4 mg IVP once; over 2 minutes Route: IVP; Site: right antecubital;ko1 08:10 Follow up: Response: No adverse reaction rs5 09:38 Drug: Ciprofloxacin PO 500 mg PO once Route: PO; rs5 10:01 Follow up: Response: No adverse reaction rs5 Disposition Summary: 11/15/23 09:32 Discharge Ordered Notes: Location: Home rn Problem: new rn Symptoms: have improved rn Condition: Stable rn Diagnosis - Abdominal pain, unspecified rn - UTI/ Urinary tract infection, site not specified rn Followup: rn - With: Private Physician - When: As needed - Reason: Recheck today's complaints, Re-evaluation by your physician Discharge Instructions: - Discharge Summary Sheet rn - Abdominal Pain, Adult rn - Urinary Tract Infection, Adult rn Forms: - Medication Reconciliation Form rn - Thank You Letter rn - 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
--- NOTE | 2023-11-15 09:33 | ER ---
Nurse's Notes [facility] Name: Maryan Tripp Age: 73 yrs Sex: Female : 1950 Arrival Date: 11/15/2023 Time: 06:55 Bed 7 Private MD: Onel Mcmullen Diagnosis: Abdominal pain, unspecified;UTI/ Urinary tract infection, site not specified Presentation: 11/15 07:15 Chief complaint: Patient states: abdominal pain x 1 week or so. Coronavirus screen: At ko1 this time, the client does not indicate any symptoms associated with coronavirus-19. Ebola Screen: No symptoms or risks identified at this time. Initial Sepsis Screen: Does the patient meet any 2 criteria? No. Patient's initial sepsis screen is negative. Does the patient have a suspected source of infection? No. Patient's initial sepsis screen is negative. Risk Assessment: Do you want to hurt yourself or someone else? Patient reports no desire to harm self or others. Onset of symptoms is unknown. 07:15 Method Of Arrival: Ambulatory ko1 07:15 Acuity: BRAYAN 3 ko1 Triage Assessment: 07:15 General: Appears in no apparent distress. uncomfortable, Behavior is calm, cooperative. rs5 Historical: - Allergies: 07:10 Sulfa (Sulfonamide Antibiotics); rs5 - PMHx: 07:10 cardiac stents; Thyroid problem; Myocardial infarction; COPD; CHF; Pacemaker; rs5 /defibrilator; - PSHx: 07:10 hip replacement; rs5 - Immunization history:: Adult Immunizations unknown. - Family history:: not pertinent. - Social history:: Smoking status: Patient denies any tobacco usage or history of. - Hospitalizations: : No recent hospitalization is reported. Screenin:15 [facility] ED Fall Risk Assessment (Adult) History of falling in the last 3 months, rs5 including since admission No falls in past 3 months (0 pts) Confusion or Disorientation No (0 pts) Intoxicated or Sedated No (0 pts) Impaired Gait No (0 pts) Mobility Assist Device Used No (0 pt) Altered Elimination No (0 pt) Score/Fall Risk Level 0 - 2 = Low Risk Oriented to surroundings, Maintained a safe environment. 07:15 Abuse screen: Denies threats or abuse. Nutritional screening: No deficits noted. rs5 Tuberculosis screening: No symptoms or risk factors identified. Assessment: 07:10 General: Appears in no apparent distress. comfortable, Behavior is calm, cooperative. rs5 Pain: Complains of pain in abdomen Pain currently is 5 out of 10 on a pain scale. Quality of pain is described as aching, Is continuous. Neuro: Level of Consciousness is awake, alert, obeys commands, Oriented to person, place, time, situation. Cardiovascular: Rhythm is regular. Respiratory: Respiratory effort is even, unlabored, Respiratory pattern is regular, symmetrical. GI: Abdomen is round non-distended, Bowel sounds present X 4 quads. Abd is soft and non tender X 4 quads. : No signs and/or symptoms were reported regarding the genitourinary system. EENT: No signs and/or symptoms were reported regarding the EENT system. Derm: Skin is intact, Skin is pink, warm \T\ dry. Musculoskeletal: Range of motion: intact in all extremities. 08:22 Reassessment: Patient and/or family updated on plan of care and expected duration. Pain rs5 level reassessed. Patient is alert, oriented x 3, equal unlabored respirations, skin warm/dry/pink. Patient denies pain at this time. Patient states feeling better. Patient states symptoms have improved. 09:35 Reassessment: No changes from previously documented assessment. rs5 Vital Signs: 07:15 BP 143 / 107; Pulse 72; Resp 16; Temp 98.4; Pulse Ox 98% ; ko1 08:00 BP 131 / 72; Pulse 78; Resp 15; Pulse Ox 99% ; ko1 09:45 BP 135 / 76; Pulse 82; Resp 18; Pulse Ox 99% on R/A; rs5 ED Course: 06:59 Patient arrived in ED. gm2 06:59 Onel Mcmullen DO is Private Physician. gm2 06:59 Abelino Gabriel MD is Attending Physician. rn 07:08 Pedro Mcintyre RN is Primary Nurse. rs5 07:15 Patient has correct armband on for positive identification. Bed in low position. Side rs5 rails up X 1. Side rails up X2. 07:15 Arm band placed on right wrist. rs5 07:35 Inserted saline lock: 22 gauge in right antecubital area, using aseptic technique. ko1 Blood collected. 07:38 Urinalysis w/ reflexes Sent. ko1 07:48 CBC with Diff Sent. ko1 07:48 CMP Sent. ko1 07:48 Lipase Sent. ko1 08:00 Triage completed. ko1 08:00 No provider procedures requiring assistance completed. rs5 08:29 CT Abd/Pelvis - IV Contrast Only In Process Unspecified. EDMS 10:05 IV discontinued, intact, bleeding controlled, No redness/swelling at site. Pressure rs5 dressing applied. Administered Medications: 07:48 Drug: Ondansetron IVP 4 mg IVP once; over 2 minutes Route: IVP; Site: right antecubital;ko1 08:10 Follow up: Response: No adverse reaction rs5 09:38 Drug: Ciprofloxacin PO 500 mg PO once Route: PO; rs5 10:01 Follow up: Response: No adverse reaction rs5 Medication: 10:05 VIS not applicable for this client. rs5 Outcome: 09:32 Discharge ordered by . rn 10:03 Patient left the ED. em1 10:05 Discharged to home ambulatory, rs5 10:05 Condition: stable 10:05 Discharge instructions given to patient, family, Instructed on discharge instructions, follow up and referral plans. Demonstrated understanding of instructions, follow-up care, Signatures: Dispatcher [employer] EDMS Abelino Gabriel MD MD rn Martinez, Eric em1 Yamile Ozuna RN RN ko1 Pedro Mcintyre RN RN rs5 Alice Garcia 2
[2023-11-15 10:22] VITALS: BP 131/72; TEMP 98.4; O2SAT 99
== END ==
LOC: ER 06:55
DX: N39.0 Urinary tract infection, site not specified (principal); Z88.2 Allergy status to sulfonamides; Z95.810 Presence of automatic (implantable) cardiac defibrillator; Z95.818 Presence of other cardiac implants and grafts
CPT/HCPCS: 87088; 85025; 81001; 87086; 36415; 83690; 80053; 74177; 96374; 99284; Q9967; J2405

== ENCOUNTER 2024-07-29 13:04 | Emergency (ER) | payer OTHER ==
--- OUTSIDE RECORDS SUMMARY | 2024-07-29 13:09 | XMS REPORT | Continuity of Care Document ---
Author Name Unknown Address [address] [place] [address] [facility] Address [address] [place] [address] Care Team Providers Care Contract Forester Name Role Phone JUICE MCMULLEN Primary Care Physician Unavailab Juice Yepez Attending Clinician Unavailable DELANEY SANTOS Attending Clinician Unav ailDELANEY Leon Attending Clinician Unav ailable CHIDI FLOWERS Attending Clinician Unavailable Navjot CONTRERAS, Chidi Attending Clinician [phone] Delaney Santos MD Attending Clinician + Chidi Flowers MD Attending Clinician [phone] Pob, 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 Attending Clinician UnavailBHAVIN Oconnor Attending Clinician Unavailable Doctor Unassigned, [place] Attending Clinician U maryam Argueta MD, Bhavin Attending Clinician [phone], [facility] Attending Clinician Unavailable Charlene Clark PA-C Attending Clinician [phone] KAMERON HAYES Attending Clinician Unavailable Kameron Laureano Attending Clinician [phone] Omole HEAD ANIMAL KEEPER, Jackmadiha Toah Attending Clinician [phone] Bocado HEAD ANIMAL KEEPERLorraine Morgan Attending Clinician [phone] Only, [facility] Test Attending Clinician Unavailable YUDITH ROMAN Attending Clinician Unavailable OMOLE, JACK FRYE Attending Clinician Geronimo kumar Pacemaker/Icd, Ad[facility] Attending Clinician Unavailab le Fac, [facility] Heart Failure Cardio Attending Clinicia n Unavailable Visit, [facility] Nurse Attending Clinician Unavailable Tu CONTRERAS, Giacomo Alba Attending Clinician [phone] Claire Piña MD Attending Clinician + CLAIRE PIÑA Attending Clinician Unav ailcody Pc, [facility] Echo Room 1 - Attending Clinician Geronimo WARDPKarlene Attending Clinician [phone] DELANEY SANTOS Admitting Clinician Unaneo ailBHAVIN Mejia Admitting Clinician Unavailable Ellie CONTRERAS, Bhavin Admitting Clinician [phone] CHIDI FLOWERS Admitting Clinician Unavailable Payers Payer Name Policy Type Policy Number Effective Date Expirati on Date Source MEDICARE PART A \\[id number]\\ [id number] 2014 00:00:00 [place] [id number] 2023 00:00:00 MED[place]ARE [place] [id number] 2014 00:00:00 [facility] MEDICARE NOVITAS MB [id number] 2014 00:00:00 [facility] MEDICARE NOV[place]AS MB [id number] 2014 00:00:00 [facility] MEDICARE NOVITAS MB [id number] 2014 00:00:00 [facility] MEDICARE NOVITAS MB [id number] 2014 00:00:00 [facility] MEDICARE NOVITAS MB [id number] 2014 00:00:00 [facility] MEDICARE NOVITAS [id number] 2014 00:00:00 [facility] MEDICARE NOVITAS MB [id number] 2014 00:00:00 [facility] Problems Condition Name Condition Details Condition Category Status Onset Date Resolution Date Last Treatment Date Treating Clinician Comments Source Hyperlipid emia, unspecifie d hyperlipid emia type Hyperlipid emia, unspecifie d hyperlipid emia type Disease Active 12-18 00:00: 00 [facility] Primary hypertensi on Primary hypertensi on Disease Active 12-18 00:00: 00 [facility] Abdominal pain Abdominal pain Disease Active 2021-09 00:00: 00 [facility] Chest pain, rule out acute myocardial infarction Chest pain, rule out acute myocardial infarction Disease Active 2021-09 00:00: 00 [facility] History of mitral valve prolapse History of mitral valve prolapse Disease Active 2021-09 00:00: 00 [facility] History of implantabl e cardiovert er-defibri llator (ICD) placement History of implantabl e cardiovert er-defibri llator (ICD) placement Disease Active 2021-09 00:00: 00 [facility] Postoperat kyree anemia due to acute blood loss Postoperat kyree anemia due to acute blood loss Disease Active 2021-09 00:00: 00 [facility] Abnormal sensing of implantabl e cardiovert er-defibri llator (ICD), initial encounter Abnormal sensing of implantabl e cardiovert er-defibri llator (ICD), initial encounter Disease Active 8- 00:00: 00 Overview: Formatharpreet g of this note might be different from the original. Added automatic ally from request for surgery [id number] [facility] Cervical spondylosi s Cervical spondylosi s Disease Active 04-30 00:00: 00 [facility] Lumbar spondylosi s Lumbar spondylosi s Disease Active 04-30 00:00: 00 [facility] Heart disease Heart disease Disease Active 04-30 00:00: 00 [facility] Myofascial pain Myofascial pain Disease Active 04-30 00:00: 00 [facility] Coronary artery disease involving [place] heart without angina pectoris, unspecifie d vessel or lesion type Coronary artery disease involving [place] heart without angina pectoris, unspecifie d vessel or lesion type Disease Active 12-17 00:00: 00 [facility] 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 Disease Active 2015-09 00:00: 00 [facility] Borderline hyperlipid emia Borderline hyperlipid emia Disease Active 2015-09 00:00: 00 [facility] Compressio n fracture Compressio n fracture Disease Active 2015-09 00:00: 00 [facility] Fall Fall Disease Active 2015-09 00:00: 00 [facility] Hypertensi on with goal to be determined Hypertensi on with goal to be determined Disease Active 2015-09 00:00: 00 [facility] Lung nodule seen on imaging study Lung nodule seen on imaging study Disease Active 2015-09 00:00: 00 [facility] Lung mass Lung mass Disease Active 2015-09 00:00: 00 [facility] Neurogenic syncope Neurogenic syncope Disease Active 2015-09 00:00: 00 [facility] OP (osteoporo sis) OP (osteoporo sis) Disease Active 2015-09 00:00: 00 [facility] Subcapital fracture of femur Subcapital fracture of femur Disease Active 2015-09 00:00: 00 [facility] [id number] Other chronic pain Problem [facility] [id number] Lumbago with sciatica, left side Problem [facility] [id number] Lumbago with sciatica, right side Problem [facility] [id number] Stage 3a chronic kidney disease Problem [facility] [id number] Body mass index [BMI] 31.0-31.9, adult Problem [facility] [id number] Other obesity due to excess calories Problem [facility] Hypothyroi dism Hypothyroi dism Problem [facility] Allergic rhinitis Allergic rhinitis Problem [facility] Dizziness Dizziness Problem Comm [facility] Stented coronary artery Stented coronary artery Problem [facility] Transient ischemic attack TIA (transient ischemic attack) Problem [facility] Internal hemorrhoid s Internal hemorrhoid s Problem [facility] Headache Head ache Problem [facility] [id number] GERD without esophagiti s Problem [facility] Insomnia Insomnia Problem [facility] [id number] Chronic systolic congestive heart failure Problem [facility] Peripheral vascular disease Peripheral vascular disease Problem [facility] Gastritis Gastritis Problem [facility] Atheroscle rotic heart disease of [place] coronary artery without angina pectoris Atheroscle rosis of coronary artery of [place] heart Problem [facility] Diverticul ar disease of colon Diverticul osis large intestine w/o perforatio n or abscess w/o bleeding Problem [facility] [id number] Congestive heart failure, unspecifie d HF chronicity , unspecifie d heart failure type Problem [facility] Vasovagal syncope Vasovagal syncope Problem [facility] [id number] Biventricu lar ICD (implantab le cardiovert er-defibri llator) in place Problem [facility] [id number] Iron deficiency anemia, unspecifie d iron deficiency anemia type Problem [facility] [id number] 107 Coronary artery disease involving [place] coronary artery of [place] heart with angina pectoris Problem [facility] Chronic obstructiv e pulmonary disease Chronic obstructiv e pulmonary disease, unspecifie d COPD type Problem [facility] [id number] Age-relate d osteoporos is without current pathologic al fracture Problem [facility] Bradycardi a Bradycardi a Problem [facility] [id number] Hypocalcem ia Problem [facility] [id number] Recurrent falls Problem [facility] [id number] Depression with anxiety Problem [facility] [id number] +5th digit eff 06/24/20*CK D (chronic kidney disease) stage 3, GFR 30-59 ml/min Problem [facility] [id number] Mixed hyperlipid emia Problem [facility] [id number] Moderate major depression , single episode Problem [facility] Myocardial infarction Myocardial infarction Problem [facility] Closed fracture of femur Femur fracture Problem [facility] Allergies, Adverse Reactions, Alerts Allergy Name Allergy Type Status Severity Reaction(s) Onset Date Inactive Date Treating Clinician Comments Source Sulfa (Sulfona mide Antibiot ics) Propensi ty to adverse reaction s Active Unknown - See comments 2015-09 00:00: 00 Does not remember it has been many years ago [facility] SULFA (SULFONA MIDE ANTIBIOT ICS) Drug Class Active Unknown-Cmnt 2015-09 00:00: 00 [facility] Social History Social Habit Start Date Stop Date Quantity Comments Source Sexual orientation U [facility] History of Tobacco Use [facility] Sex Assigned At [facility] Alcoholic beverage intake 2024-01-17 00:00:00 2024-01-17 00:00:00 Current non-drinker of alcohol (finding) [facility] Alcohol intake 2024-01-17 00:00:00 2024-01-17 00:00:00 Current non-drinker of alcohol (finding) [facility] Exposure to SARS-CoV-2 (event) 2022-12-08 00:00:00 2022-12-18 13:14:00 Not sure [facility] History of Social function 2021-05-10 00:00:00 2021-05-10 00:00:00 [facility] Tobacco use and exposure 2016-08-31 00:00:00 2016-08-31 00:00:00 Smokeless tobacco non-user [facility] Smoking Status Start Date Stop Date Source Former Smoker 2024-07-28 00:00:00 2024-07-28 00:00:00 [facility] Never smoked tobacco [facility] Medications Ordered Medication Name Filled Medication Name Start Date Stop Date Current Medication? Ordering Clinician Indication Dosage Frequency Signature (SIG) Comments Components Source ezetimibe 10 mg tablet 2023-09 0-04 00:00: 00 Yes [id number] 10mg Take 1 tablet by mouth in the morning. [facility] Ambien 5 MG Ambien 5 MG 8-05 00:00: 00 No 1{table t_at_be dtime} QD Ambien 5 MG ezetimibe 10 mg tablet 4-10 00:00: 00 06-27 00:00 :00 No [id number] 10mg Take 1 tablet by mouth in the morning. [facility] carvediloL 3.125 mg tablet 2- 00:00: 00 Yes [id number] 3.125mg Take 1 tablet by mouth in the morning. [facility] sacubitriL- valsartan 24-26 mg tablet 2- 00:00: 00 Yes [id number] 1{tbl} Take 1 tablet by mouth in the morning and 1 tablet in the evening. [facility] sulfur hexafluorid e microsphr (LUMASON) injection 5 mL 2022-09 20:45: 00 08-29 20:38 :00 No [id number] 5mL 5 mL, Intravenou s, ONCE, 1 dose, On Sun08/29/23 at 1445, Routine
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 [facility] citalopram 20 mg tablet 2022-09 15:07: 40 Yes 20mg Take 1 tablet by mouth in the morning. [facility] meclizine 25 mg tablet 2022-09 15:07: 40 Yes meclizine 25 mg tablet [facility] metroNIDAZO LE 500 mg tablet 2022-09 15:07: 40 Yes metronidaz ole 500 mg tablet [facility] ondansetron 4 mg tablet 2022-09 15:07: 40 Yes ondansetro n HCl 4 mg tablet [facility] calcitONIN, salmon, 200 unit/actuat ion nasal spray 2022-09 15:07: 40 Yes calcitonin (salmon) 200 unit/actua tion nasal spray [facility] balsalazide 750 mg capsule 2022-09 15:07: 40 Yes balsalazid e 750 mg capsule [facility] Cholecalcif brenda, Vitamin D3, 25 mcg (1,000 unit) capsule 2022-09 15:05: 25 Yes 1 capsule [facility] budesonide- formoteroL (SYMBICORT) 160-4.5 mcg/actuati on inhaler 2022-09 15:05: 25 Yes 2 puffs [facility] clopidogreL 75 mg tablet 2022-09 00:00: 00 Yes [id number] TAKE 1 TABLET EVERY DAY [facility] furosemide 20 mg tablet 2022-09 00:00: 00 Yes [id number] 20mg Take 1 tablet by mouth in the morning. [facility] carvediloL 3.125 mg tablet 2022-09 00:00: 00 11-15 00:00 :00 No [id number] 3.125mg Take 1 tablet by mouth in the morning. [facility] spironolact one 25 mg tablet 2022-09 2 00:00: 00 10-01 00:00 :00 No [id number] 25mg Take 1 tablet by mouth in the morning. [facility] empaglifloz in 10 mg 2022-09 2 00:00: 00 10-01 00:00 :00 No [id number] 10mg Take 1 tablet by mouth in the morning. [facility] aspirin 81 mg chewable tablet 6- 10:20: 25 02-26 00:00 :00 No 81mg Take 1 tablet by mouth in the morning. [facility] carvediloL 3.125 mg tablet 6-05 00:00: 00 08-29 00:00 :00 No [id number] 3.125mg Take 1 tablet by mouth in the morning. [facility] lisinopriL 2.5 mg tablet 12-18 13:36: 05 12-18 00:00 :00 No lisinopril 2.5 mg tablet [facility] aspirin 81 mg chewable tablet 12-18 13:25: 00 Yes 81mg Take 1 tablet by mouth in the morning. [facility] busPIRone 10 mg tablet - 13:25: 00 Yes 10mg Take 1 tablet by mouth in the morning and 1 tablet in the evening. [facility] ezetimibe 10 mg tablet 3-27 00:00: 00 01-01 00:00 :00 No [id number] 10mg Take 1 tablet by mouth in the morning. [facility] sacubitriL- valsartan 24-26 mg tablet 3-27 00:00: 00 11-15 00:00 :00 No [id number] 1{tbl} Take 1 tablet by mouth in the morning and 1 tablet in the evening. [facility] furosemide 20 mg tablet 3-27 00:00: 00 08-29 00:00 :00 No [id number] 20mg Take 1 tablet by mouth in the morning. [facility] clopidogreL 75 mg tablet 12-18 00:00: 00 08-29 00:00 :00 No [id number] TAKE 1 TABLET EVERY DAY [facility] carvediloL 3.125 mg tablet 12-18 00:00: 00 02-26 00:00 :00 No [id number] 3.125mg Take 1 tablet by mouth in the morning and 1 tablet in the evening. Take with meals. [facility] aspirin 81 mg chewable tablet 2021-09 08:54: 54 Yes 81mg Take 81 mg by mouth daily. [facility] pantoprazol e 40 mg EC tablet 2021-09 08:54: 54 Yes 40mg Take 40 mg by mouth daily. [facility] citalopram 20 mg tablet 2021-09 08:54: 54 Yes 20mg Take 20 mg by mouth daily. [facility] busPIRone 10 mg tablet 2021-09 08:54: 54 Yes 10mg Take 10 mg by mouth as needed. [facility] albuterol sulfate (PROAIR HFA INHALE) 2021-09 08:54: 54 Yes Inhale. [facility] sulfaSALAzi ne 500 mg tablet 2021-09 08:54: 54 Yes 2 tablet [facility] lisinopriL 2.5 mg tablet 2021-09 08:54: 54 Yes lisinopril 2.5 mg tablet [facility] meclizine 25 mg tablet 2021-09 08:54: 54 Yes meclizine 25 mg tablet [facility] metroNIDAZO LE 500 mg tablet 2021-09 08:54: 54 Yes metronidaz ole 500 mg tablet [facility] ondansetron 4 mg tablet 2021-09 08:54: 54 Yes ondansetro n HCl 4 mg tablet [facility] Cholecalcif brenda, Vitamin D3, 25 mcg (1,000 unit) capsule 2021-09 08:54: 54 Yes 1 capsule [facility] calcitONIN, salmon, 200 unit/actuat ion nasal spray 2021-09 08:54: 54 Yes calcitonin (salmon) 200 unit/actua tion nasal spray [facility] budesonide- formoteroL (SYMBICORT) 160-4.5 mcg/actuati on inhaler 2021-09 08:54: 54 Yes 2 puffs [facility] balsalazide 750 mg capsule 2021-09 08:54: 54 Yes balsalazid e 750 mg capsule [facility] ciprofloxac in HCl 500 mg tablet 06-09 00:00: 00 Yes [facility] zolpidem 5 mg tablet 06-07 00:00: 00 Yes [facility] carvediloL 3.125 mg tablet 05-18 00:00: 00 12-18 00:00 :00 No [id number] 3.125mg Take 1 tablet by mouth in the morning and 1 tablet in the evening. Take with meals. [facility] clopidogreL 75 mg tablet 05-18 00:00: 00 12-18 00:00 :00 No [id number] TAKE 1 TABLET EVERY DAY [facility] aspirin 81 mg chewable tablet 05-09 14:09: 02 Yes 81mg Take 81 mg by mouth daily. [facility] sacubitriL- valsartan (ENTRESTO) 49-51 mg tablet - 00:00: 00 12-18 00:00 :00 No [id number] 1{tbl} Take 1 tablet by mouth in the morning and 1 tablet in the evening. [facility] clopidogreL 75 mg tablet 7- 00:00: 00 05-18 00:00 :00 No [id number] TAKE 1 TABLET EVERY DAY [facility] CARVEDILOL 3.125 mg tablet 09-28 00:00: 00 Yes [id number] TAKE 1 TABLET TWICE DAILY WITH MEALS [facility] pantoprazol e 40 mg EC tablet 2020-09 14:19: 47 Yes 40mg Take 1 tablet by mouth in the morning. [facility] citalopram 20 mg tablet 2020-09 14:19: 47 Yes 20mg Take 1 tablet by mouth in the morning. [facility] busPIRone 10 mg tablet 2020-09 14:19: 47 Yes 10mg Take 1 tablet by mouth in the morning and 1 tablet in the evening. [facility] albuterol sulfate (PROAIR HFA INHALE) 2020-09 14:19: 47 Yes Inhale. [facility] acetaminoph en-codeine (TYLENOL-CO DEINE #3) 300-30 mg tablet 2020-09 00:00: 00 Yes [id number] 1{tbl} Take 1 tablet by mouth every 6 (six) hours as needed for Pain (scale 4-6) or Pain (scale 7-10) for up to 12 doses. Indication s: acute pain, s-p generator change out [facility] doxycycline 100 mg EC tablet 2020-09 00:00: 00 Yes [id number] 100mg Take 1 tablet by mouth 2 (two) times daily. [facility] FUROSEMIDE 20 mg tablet 01-21 00:00: 00 12-18 00:00 :00 No [id number] 20mg TAKE 1 TABLET BY MOUTH EVERY MORNING AND EVENING. [facility] pravastatin 40 mg tablet 04-01 00:00: 00 Yes 40mg Take 1 tablet by mouth in the morning. [facility] traMADOL (ULTRAM) tablet 50 mg 2015-09 21:38: 53 Yes 50mg [facility] levothyroxi ne (SYNTHROID) 100 mcg tablet 2015-09 00:00: 00 Yes 88ug Take 88 mcg in the morning. [facility] traZODone (DESYREL) 150 mg tablet 2016-0 9-20 00:00: 00 Yes at bedtime. [facility] Pantoprazol e Sodium 40 MG Pantoprazol e Sodium 40 MG No 1{table t} QD Pantoprazo le Sodium 40 MG Levothyroxi ne Sodium 75 [...] t} QD Citalopram Hydrobromi de 20 MG Coreg 3.125 MG Coreg 3.125 MG No Coreg 3.125 MG Furosemide 20 MG Furosemide 20 MG No 1{table t} QD Furosemide 20 MG Plavix 75 MG Plavix 75 MG No 1{table t} QD Plavix 75 MG Entresto 24-26 MG Entresto 24-26 MG No 1{table t} QD Entresto 24-26 MG Ezetimibe 10 MG Ezetimibe 10 MG No 1{table t} QD Ezetimibe 10 MG Ferrous Sulfate 325 (65 Fe) MG Ferrous Sulfate 325 (65 Fe) MG No 1{table t} BID Ferrous Sulfate 325 (65 Fe) MG Symbicort 160-4.5 MCG/ACT Symbicort 160-4.5 MCG/ACT No 2{puffs } BID Symbicort 160-4.5 MCG/ACT Aspir-81 81 MG Aspir-81 81 MG No 1{table t} QD Aspir-81 81 MG Immunizations Ordered Immunization Name Filled Immunization Name Date Status Comments Source Influenza Virus Vaccine,quad Im,preserve Free 65+ (FLUAD) 2023-08-29 00:00:00 Completed [facility] SARS-COV-2 COVID-19 VACCINE - (MODERNA) 2021-07-22 00:00:00 Completed SARS-COV-2 COVID-19 VACCINE - (MODERNA) 2020-11-24 00:00:00 Completed FluAD FluAD 2020-08-31 14:52:00 Completed [facility] FluAD FluAD 2020-08-31 14:52:00 Completed [facility] FluAD FluAD 2020-08-31 14:52:00 Completed [facility] FluAD FluAD 2020-08-31 14:52:00 Completed [facility] FluAD FluAD 2020-08-31 14:52:00 Completed [facility] FluAD FluAD 2020-08-31 14:52:00 Completed [facility] FluAD FluAD 2020-08-31 14:52:00 Completed [facility] FluAD FluAD 2020-08-31 14:52:00 Completed [facility] FluAD FluAD 2020-08-31 14:52:00 Completed [facility] FluAD FluAD 2020-08-31 14:52:00 Completed [facility] FluAD FluAD 2020-08-31 14:52:00 Completed [facility] FluAD FluAD 2020-08-31 14:52:00 Completed [facility] FluAD FluAD 2020-08-31 14:52:00 Completed [facility] FluAD FluAD 2020-08-31 14:52:00 Completed [facility] Influenza High Dose 2020-08-30 00:00:00 Completed [facility] Influenza High Dose 2020-08-30 00:00:00 Completed [facility] Influenza High Dose 2020-08-30 00:00:00 Completed [facility] Influenza High Dose 2020-08-30 00:00:00 Completed [facility] Influenza High Dose 2020-08-30 00:00:00 Completed [facility] Influenza High Dose 2020-08-30 00:00:00 Completed [facility] Influenza High Dose 2020-08-30 00:00:00 Completed [facility] Influenza High Dose 2020-08-30 00:00:00 Completed [facility] Influenza High Dose 2020-08-30 00:00:00 Completed [facility] Influenza High Dose 2020-08-30 00:00:00 Completed [facility] Influenza High Dose 2020-08-30 00:00:00 Completed [facility] Influenza High Dose 2020-08-30 00:00:00 Completed [facility] Influenza High Dose 2020-08-30 00:00:00 Completed [facility] Influenza High Dose 2020-08-30 00:00:00 Completed [facility] Influenza High Dose 2020-08-30 00:00:00 Completed [facility] Influenza High Dose 2020-08-30 00:00:00 Completed [facility] Influenza High Dose 2020-08-30 00:00:00 Completed [facility] Influenza High Dose 2020-08-30 00:00:00 Completed [facility] Influenza, High-Dose, Trivalent, PF (FLUZONE) 2020-08-30 00:00:00 Completed [facility] Influenza, split virus, trivalent, preservative (3+ Yrs) (Afluria) 2017-08-04 00:00:00 Completed Influenza High Dose Unknown Completed [facility] Influenza High Dose Unknown Completed [facility] Influenza High Dose Unknown Completed [facility] Influenza Virus Vaccine,quad Im,preserve Free 65+ (FLUAD) Unknown Completed [facility] Influenza Virus Vaccine (3+ yrs) Unknown Completed [facility] SARS-COV-2 COVID-19 VACCINE - (MODERNA) Unknown [facility]ose [facility] Completed [facility] Influenza Virus Vaccine,quad Im,preserve Free 65+ (FLUAD) Unknown Completed [facility] SARS-COV-2 COVID-19 VACCINE - (MODERNA) Unknown Completed [facility] Influenza Virus Vaccine (3+ yrs) Unknown Completed [facility] Influenza High Dose Unknown Completed [facility] Influenza Virus Vaccine,quad Im,preserve Free 65+ (FLUAD) Unknown Completed [facility] Influenza Virus Vaccine (3+ yrs) Unknown Completed [facility] SARS-COV-2 COVID-19 VACCINE - (MODERNA) Unknown [facility] Influ[facility] High Dose Unknown Completed [facility] Influenza Virus Vaccine,quad Im,preserve Free 65+ (FLUAD) Unknown Completed [facility] SARS-COV-2 COVID-19 VACCINE - (MODERNA) Unknown [facility] Influ[facility] Virus Vaccine (3+ yrs) Unknown Completed [facility] Influenza High Dose Unknown Completed [facility] Influenza Virus Vaccine,quad Im,preserve Free 65+ (FLUAD) Unknown Completed [facility] SARS-COV-2 COVID-19 VACCINE - (MODERNA) Unknown Completed [facility] Influenza Virus Vaccine (3+ yrs) Unknown Completed [facility] Influenza High Dose Unknown Completed [facility] Influenza Virus Vaccine,quad Im,preserve Free 65+ (FLUAD) Unknown Completed [facility] SARS-COV-2 COVID-19 VACCINE - (MODERNA) Unknown Completed [facility] Influenza Virus Vaccine (3+ yrs) Unknown Completed [facility] Influenza High Dose Unknown Completed [facility] Influenza Virus Vaccine,quad Im,preserve Free 65+ (FLUAD) Unknown Completed [facility] SARS-COV-2 COVID-19 VACCINE - (MODERNA) Unknown [facility] Influenza Virus Vaccine (3+ yrs) Unknown Completed [facility] Influenza High Dose Unknown Completed [facility] Influenza Virus Vaccine,quad Im,preserve Free 65+ (FLUAD) Unknown Completed [facility] SARS-COV-2 COVID-19 VACCINE - (MODERNA) Unknown Completed [facility] Influenza Virus Vaccine (3+ yrs) Unknown Completed [facility] Influenza High Dose Unknown Completed [facility] Influenza Virus Vaccine,quad Im,preserve Free 65+ (FLUAD) Unknown Completed [facility] Influenza Virus Vaccine (3+ yrs) Unknown Completed [facility] SARS-COV-2 COVID-19 VACCINE - (MODERNA) Unknown [facility] Influenza High Dose Unknown Completed [facility] Influenza Virus Vaccine,quad Im,preserve Free 65+ (FLUAD) Unknown Completed [facility] SARS-COV-2 COVID-19 VACCINE - (MODERNA) Unknown Completed [facility] Influenza Virus Vaccine (3+ yrs) Unknown Completed [facility] Influenza High Dose Unknown Completed [facility] Influenza Virus Vaccine,quad Im,preserve Free 65+ (FLUAD) Unknown Completed [facility] SARS-COV-2 COVID-19 VACCINE - (MODERNA) Unknown Completed [facility] Influenza Virus Vaccine (3+ yrs) Unknown Completed [facility] Influenza High Dose Unknown Completed [facility] Influenza Virus Vaccine,quad Im,preserve Free 65+ (FLUAD) Unknown Completed [facility] SARS-COV-2 COVID-19 VACCINE - (MODERNA) Unknown Completed [facility] Influenza Virus Vaccine (3+ yrs) Unknown Completed [facility] FluAD FluAD Unknown Completed [facility] FluAD FluAD Unknown Completed [facility] FluAD FluAD Unknown Completed [facility] FluAD FluAD Unknown Completed [facility] Flu[facility] FluAD Unknown Completed [facility] Flu[facility] FluAD Unknown Completed [facility] Flu[facility] FluAD Unknown Completed [facility] Flu[facility] FluAD Unknown Completed [facility] FluAD Unknown Completed [facility] FluAD Unknown Completed [facility] FluAD Unknown Completed [facility] FluAD Unknown Completed [facility] FluAD Unknown Completed [facility] FluAD Unknown Completed [facility] FluAD FluAD Unknown Completed [facility] FluAD FluAD Unknown Completed [facility] FluAD FluAD Unknown Completed [facility] FluAD FluAD Unknown Completed [facility] Vital Signs Vital Name Observation Time Observation Value Comments S ource height 2024-04-28 14:20:00 67 [in_i] Commo n [facility] weight 2024-04-28 14:20:00 195.0 [lb_av] Co mmon [facility] temperature 2024-04-28 14:20:00 97.2 [degF] Com mon [facility] bmi 2024-04-28 14:20:00 30.54 kg/m2 Comm on [facility] oximetry 2024-04-28 14:20:00 97 % Commo n [facility] respiratory rate 2024-04-28 14:20:00 18 /min Common [facility] blood pressure systolic 2024-04-28 14:20:00 124 mm[Hg] Common [facility] blood pressure diastolic 2024-04-28 14:20:00 68 mm[Hg] [facility] height 2024-04-28 14:20:00 67 [in_i] Commo n [facility] weight 2024-04-28 14:20:00 195.0 [lb_av] Co mmon [facility] temperature 2024-04-28 14:20:00 97.2 [degF] Com [facility] bmi 2024-04-28 14:20:00 30.54 kg/m2 Comm on [facility] oximetry 2024-04-28 14:20:00 97 % Commo n [facility] respiratory rate 2024-04-28 14:20:00 18 /min Common [facility] blood pressure systolic 2024-04-28 14:20:00 124 mm[Hg] Common [facility] blood pressure diastolic 2024-04-28 14:20:00 68 mm[Hg] [facility] height 2024-04-28 14:30:00 67 [in_i] Commo n [facility] weight 2024-04-28 14:30:00 195.0 [lb_av] Co mmon [facility] temperature 2024-04-28 14:30:00 97.2 [degF] Com [facility] bmi 2024-04-28 14:30:00 30.54 kg/m2 Comm on [facility] oximetry 2024-04-28 14:30:00 97 % Commo n [facility] respiratory rate 2024-04-28 14:30:00 18 /min [facility] blood pressure systolic 2024-04-28 14:30:00 124 mm[Hg] [facility] blood pressure diastolic 2024-04-28 14:30:00 68 mm[Hg] [facility] Systolic blood pressure 2024-01-17 18:03:00 121 mm[Hg] [facility] Diastolic blood pressure 2024-01-17 18:03:00 62 mm[Hg] [facility] Heart rate 2024-01-17 18:03:00 82 /min [facility] Body temperature 2024-01-17 18:03:00 35.67 Hermelinda [facility] Body height 2024-01-17 18:03:00 170.2 cm [facility] Body weight 2024-01-17 18:03:00 87.544 kg [facility] BMI 2024-01-17 18:03:00 30.23 kg/m2 [facility] Oxygen saturation in Arterial blood by Pulse oximetry 2024-01-17 18:03:00 96 /min [facility] height 2023-11-28 16:20:00 67 [in_i] Commo n [facility] weight 2023-11-28 16:20:00 194 [lb_av] Comm on [facility] temperature 2023-11-28 16:20:00 98 [degF] Comm on [facility] bmi 2023-11-28 16:20:00 30.38 kg/m2 Comm on [facility] blood pressure systolic 2023-11-28 16:20:00 128 mm[Hg] Common [facility] blood pressure diastolic 2023-11-28 16:20:00 76 mm[Hg] [facility] Systolic blood pressure 2023-08-29 21:02:00 133 mm[Hg] [facility] Diastolic blood pressure 2023-08-29 21:02:00 73 mm[Hg] [facility] Heart rate 2023-08-29 21:02:00 72 /min [facility] Respiratory rate 2023-08-29 21:02:00 18 /min [facility] Body height 2023-08-29 21:02:00 170.2 cm [facility] Body weight 2023-08-29 21:02:00 88.451 kg [facility] BMI 2023-08-29 21:02:00 30.54 kg/m2 [facility] Oxygen saturation in Arterial blood by Pulse oximetry 2023-08-29 21:02:00 97 /min [facility] height 2023-08-14 08:50:00 67 [in_i] Commo n [facility] weight 2023-08-14 08:50:00 193 [lb_av] Comm on [facility] bmi 2023-08-14 08:50:00 30.22 kg/m2 Comm on [facility] blood pressure systolic 2023-08-14 08:50:00 126 mm[Hg] [facility] blood pressure diastolic 2023-08-14 08:50:00 74 mm[Hg] Common [facility] height 2023-05-22 13:10:00 67 [in_i] Commo n [facility] weight 2023-05-22 13:10:00 192.0 [lb_av] Co mmon [facility] temperature 2023-05-22 13:10:00 97.3 [degF] Com mon [facility] bmi 2023-05-22 13:10:00 30.07 kg/m2 Comm on [facility] oximetry 2023-05-22 13:10:00 98 % Commo n [facility] respiratory rate 2023-05-22 13:10:00 18 /min Common [facility] blood pressure systolic 2023-05-22 13:10:00 129 mm[Hg] Common [facility] blood pressure diastolic 2023-05-22 13:10:00 71 mm[Hg] Common [facility] height 2023-05-22 13:20:00 67 [in_i] Commo n [facility] weight 2023-05-22 13:20:00 192.0 [lb_av] Co mmon [facility] temperature 2023-05-22 13:20:00 97.3 [degF] Com mon [facility] bmi 2023-05-22 13:20:00 30.07 kg/m2 Comm on [facility] oximetry 2023-05-22 13:20:00 98 % Commo n [facility] respiratory rate 2023-05-22 13:20:00 18 /min Common [facility] blood pressure systolic 2023-05-22 13:20:00 129 mm[Hg] [facility] blood pressure diastolic 2023-05-22 13:20:00 71 mm[Hg] Common [facility] height 2023-04-05 11:40:00 67 [in_i] Commo n [facility] weight 2023-04-05 11:40:00 193 [lb_av] Comm on [facility] bmi 2023-04-05 11:40:00 30.22 kg/m2 Comm on [facility] height 2023-03-07 14:30:00 67 [in_i] Commo n [facility] weight 2023-03-07 14:30:00 193.4 [lb_av] Co mmon [facility] temperature 2023-03-07 14:30:00 97.9 [degF] Com mon [facility] bmi 2023-03-07 14:30:00 30.29 kg/m2 Comm on [facility] oximetry 2023-03-07 14:30:00 97 % Commo n [facility] respiratory rate 2023-03-07 14:30:00 18 /min Common [facility] blood pressure systolic 2023-03-07 14:30:00 105 mm[Hg] Common [facility] blood pressure diastolic 2023-03-07 14:30:00 62 mm[Hg] Common [facility] height 2023-01-18 13:30:00 67 [in_i] Commo n [facility] weight 2023-01-18 13:30:00 192 [lb_av] Comm on [facility] temperature 2023-01-18 13:30:00 98 [degF] Comm on [facility] bmi 2023-01-18 13:30:00 30.07 kg/m2 Comm on [facility] blood pressure systolic 2023-01-18 13:30:00 116 mm[Hg] Common [facility] blood pressure diastolic 2023-01-18 13:30:00 70 mm[Hg] [facility] Systolic blood pressure 2022-12-18 18:27:00 113 mm[Hg] [facility] Diastolic blood pressure 2022-12-18 18:27:00 74 mm[Hg] [facility] Heart rate 2022-12-18 18:27:00 84 /min [facility] Body temperature 2022-12-18 18:27:00 36.17 Hermelinda [facility] Respiratory rate 2022-12-18 18:27:00 18 /min [facility] Body height 2022-12-18 18:27:00 170.2 cm [facility] Body weight 2022-12-18 18:27:00 88.27 kg [facility] BMI 2022-12-18 18:27:00 30.48 kg/m2 [facility] Oxygen saturation in Arterial blood by Pulse oximetry 2022-12-18 18:27:00 96 /min [facility] height 2022-12-12 10:50:00 67 [in_i] Commo n [facility] weight 2022-12-12 10:50:00 195.1 [lb_av] Co mmon [facility] temperature 2022-12-12 10:50:00 98.5 [degF] Com mon [facility] bmi 2022-12-12 10:50:00 30.55 kg/m2 Comm on [facility] oximetry 2022-12-12 10:50:00 97 % Commo n [facility] respiratory rate 2022-12-12 10:50:00 16 /min Common [facility] blood pressure systolic 2022-12-12 10:50:00 108 mm[Hg] Common [facility] blood pressure diastolic 2022-12-12 10:50:00 54 mm[Hg] [facility] height 2022-09-11 13:20:00 67 [in_i] Commo n [facility] weight 2022-09-11 13:20:00 197 [lb_av] Comm on [facility] temperature 2022-09-11 13:20:00 98 [degF] Comm on [facility] bmi 2022-09-11 13:20:00 30.85 kg/m2 Comm on [facility] blood pressure systolic 2022-09-11 13:20:00 125 mm[Hg] Common [facility] blood pressure diastolic 2022-09-11 13:20:00 72 mm[Hg] [facility] Systolic blood pressure 2022-09-01 13:56:00 88 mm[Hg] [facility] Diastolic blood pressure 2022-09-01 13:56:00 54 mm[Hg] [facility] Respiratory rate 2022-09-01 13:56:00 21 /min [facility] Oxygen saturation in Arterial blood by Pulse oximetry 2022-09-01 13:56:00 98 /min [facility] Body weight 2022-05-26 19:57:00 89.5 kg [facility] BMI 2022-05-26 19:57:00 30.90 kg/m2 [facility] Systolic blood pressure 2022-09-01 13:56:00 88 mm[Hg] [facility] Diastolic blood pressure 2022-09-01 13:56:00 54 mm[Hg] [facility] Respiratory rate 2022-09-01 13:56:00 21 /min [facility] Oxygen saturation in Arterial blood by Pulse oximetry 2022-09-01 13:56:00 98 /min [facility] Body weight 2022-05-26 19:57:00 89.5 kg [facility] BMI 2022-05-26 19:57:00 30.90 kg/m2 [facility] height 2022-05-15 08:00:00 67 [in_i] Commo n [facility] weight 2022-05-15 08:00:00 198 [lb_av] Comm on [facility] temperature 2022-05-15 08:00:00 97.4 [degF] Com [facility] bmi 2022-05-15 08:00:00 31.01 kg/m2 Comm on [facility] blood pressure systolic 2022-05-15 08:00:00 120 mm[Hg] Common [facility] blood pressure diastolic 2022-05-15 08:00:00 70 mm[Hg] [facility] height 2022-05-15 07:40:00 67 [in_i] Commo n [facility] weight 2022-05-15 07:40:00 198 [lb_av] Comm on [facility] temperature 2022-05-15 07:40:00 97.4 [degF] Com [facility] bmi 2022-05-15 07:40:00 31.01 kg/m2 Comm on [facility] blood pressure systolic 2022-05-15 07:40:00 120 mm[Hg] [facility] blood pressure diastolic 2022-05-15 07:40:00 70 mm[Hg] [facility] Systolic blood pressure 2022-05-09 19:04:00 120 mm[Hg] [facility] Diastolic blood pressure 2022-05-09 19:04:00 66 mm[Hg] [facility] Heart rate 2022-05-09 19:04:00 78 /min [facility] Body temperature 2022-05-09 19:04:00 35.44 Hermelinda [facility] Respiratory rate 2022-05-09 19:04:00 18 /min [facility] Body height 2022-05-09 19:04:00 170.2 cm [facility] Body weight 2022-05-09 19:04:00 89.495 kg [facility] BMI 2022-05-09 19:04:00 30.90 kg/m2 [facility] Oxygen saturation in Arterial blood by Pulse oximetry 2022-05-09 19:04:00 98 /min [place] [facility] height 2021-11-30 09:00:00 67 [in_i] Commo n [facility] weight 2021-11-30 09:00:00 200 [lb_av] Comm on [facility] bmi 2021-11-30 09:00:00 31.32 kg/m2 Comm on [facility] height 2021-10-05 14:00:00 67 [in_i] Commo n [facility] weight 2021-10-05 14:00:00 200 [lb_av] Comm on [facility] temperature 2021-10-05 14:00:00 98 [degF] Comm on [facility] bmi 2021-10-05 14:00:00 31.32 kg/m2 Comm on [facility] blood pressure systolic 2021-10-05 14:00:00 114 mm[Hg] Common [facility] blood pressure diastolic 2021-10-05 14:00:00 74 mm[Hg] Common [facility] height 2021-09-13 15:10:00 67 [in_i] Commo n [facility] weight 2021-09-13 15:10:00 199.5 [lb_av] Co mmon [facility] temperature 2021-09-13 15:10:00 97.2 [degF] Com mon [facility] bmi 2021-09-13 15:10:00 31.24 kg/m2 Comm on [facility] oximetry 2021-09-13 15:10:00 98 % Commo n [facility] respiratory rate 2021-09-13 15:10:00 17 /min Common [facility] blood pressure systolic 2021-09-13 15:10:00 109 mm[Hg] [facility] blood pressure diastolic 2021-09-13 15:10:00 59 mm[Hg] [facility] height 2021-06-17 11:40:00 67 [in_i] Commo n [facility] weight 2021-06-17 11:40:00 205.3 [lb_av] Co mmon [facility] bmi 2021-06-17 11:40:00 32.15 kg/m2 Comm on [facility] Procedures Procedure Date / Time Performed Performing Clinician Source CARDIAC DEVICE CHECK - NURSE ORDERABLE 2024-06-09 02:49:06 [facility] CARDIAC DEVICE CHECK - NURSE - PROGRAMMING MULTI LEAD/GRIPPER INSTALLER ICD 2024-06-05 20:39[facility] (62392[facility] 2023-09-21 20:36:00 Navjot [facility] LIPID PANEL (13771)(TOTAL CHOLESTEROL, TRIGLYCERIDES, HDL) 2023-09-21 20:36:00 Navjot [facility] CBC WITHOUT DIFF 2023-09-21 20:36:00 Navjot [facility] FLU VACC(),65+YR,0.5 ML,IM,ADJUVANTED,QUAD(FLUAD ) 2023-08-29 21:17:50 Navjot [facility] TRANSTHORACIC ECHO (TTE) COMPLETE W/ CONTRAST 2023-08-29 20:55:02 Navjot, Qiangjun [facility] PATIENT QUESTIONNAIRE 2023-02-27 05:01:00 Doctor Unassigned, [place] [facility] ASSIGNMENT OF BENEFITS 2022-12-18 18:16:10 Doctor Unassigned, [place] [facility] OUTPATIENT CARDIAC CATHETERIZATION DOCUMENTS 2022-09-11 06:01:00 Doctor Unassigned, [place] [facility] ELECTROPHYSIOLOGY PROCEDURE 2022-09-01 13:41:00 Charlene Clark [facility] HB ECG ROUTINE & RHYTHM STRIP 2022-09-01 13:11:40 Bhavin Argueta [facility] ASSIGNMENT OF BENEFITS 2022-08-28 20:17:04 Doctor Unassigned, [place] [facility] Encounters Start Date/Time End Date/Time Encounter Type Admission Type Attending [facility] Care Department Encounter ID Source 2024-07-15 09:09:00 Outpatient [facility] [id number] [facility] 2023-05-18 09:14:00 Outpatient Mcmullen, Juice [facility] ST[facility] [id number] [facility] 2023-02-06 08:42:01 Outpatient Mcmullen, Juice [facility] [id number] [facility] 2022-09-07 15:51:03 Outpatient Mcmullen, Juice [facility] [id number] [facility] 2021-10-19 14:27:34 Outpatient Mcmullen, Juice [facility] STLMLC [id number] [facility] 2021-10-19 13:53:13 Outpatient Mcmullen, Juice [facility] STLMLC [id number] [facility] 2021-10-19 12:39:19 Outpatient Mcmullen, Ujice [facility] STLMLC [id number] [facility] 2021-10-19 12:37:24 Outpatient Mcmullen, Juice [facility] [id number] [facility] 2021-10-19 12:36:12 Outpatient Mcmullen, Ju[facility] [id number] [facility] 2021-10-19 12:11:32 Outpatient Mcmullen, Juice [facility] [id number] [facility] 2021-10-19 11:14:14 Outpatient Mcmullen, Juice [facility] [id number] [facility] 2021-10-19 11:02:46 Outpatient Mcmullen, Juice [facility] [id number] [facility] 2024-07-21 13:20:00 2024-07-21 13:20:00 [id number] 2024-06-27 00:00:00 2024-06-27 11:46:52 Refill Navjot [facility] [id number] [facility] 2024-06-19 00:00:00 2024-06-19 00:00:00 (TEL) [facility] [id number] [facility] 2024-06-05 12:56:56 2024-06-05 23:59:00 Outpatient R ALLI SANTOS [facility] [id number] [facility] 2024-06-05 12:56:56 2024-06-05 23:59:00 Hospital Encounter Alli Santos [facility] [id number] [facility] 2024-04-28 00:00:00 2024-04-28 00:00:00 OFFICE VISIT ESTAB PT LEVEL 4 STLC STLC [id number] [facility] 2024-04-28 00:00:00 2024-04-28 00:00:00 (TEL) STLMLC STLMLC [id number] [facility] 2024-04-28 00:00:00 2024-04-28 00:00:00 SUB ANNUAL [facility] VISIT STLMLC STLMLC [id number] [facility] 2024-04-18 00:00:00 2024-04-18 00:00:00 (TEL) STLMLC STLMLC [id number] [facility] 2024-03-25 00:00:00 2024-03-25 00:00:00 (TEL) STLMLC STLMLC [id number] [facility] 2024-03-21 00:00:00 2024-03-21 00:00:00 (TEL) STLMLC STLMLC [id number] [facility] 2024-03-20 12:00:00 2024-03-20 12:00:00 [facility] [id number] [facility] 2024-02-01 00:00:00 2024-02-01 00:00:00 (TEL) STLMLC STLMLC [id number] [facility] 2024-01-31 15:00:00 2024-01-31 15:00:00 [facility] [id number] [facility] 2024-01-17 13:23:51 2024-01-17 23:59:00 Hospital Encounter Alli Santos [facility] [id number] [facility] 2024-01-17 13:00:00 2024-01-17 13:24:39 Outpatient R CHIDI FLOWERS [facility] [id number] [facility] 2024-01-17 13:00:00 2024-01-17 13:20:00 Office Visit Chidi Flowers [facility] [id number] [facility] 2024-01-17 00:00:00 2024-01-17 00:00:00 Clinic Assessment Alli Santos [facility] [id number] [facility] 2024-01-02 00:00:00 2024-01-02 00:00:[facility] [id number] [facility] 2023-12-20 00:00:00 2023-12-20 00:00:00 (TEL) [facility] [id number] [facility] 2023-11-28 00:00:00 2023-11-28 00:00:00 OFFICE VISIT ESTAB PT LEVEL 4 [facility] STLC [id number] [facility] 2023-11-22 00:00:00 2023-11-22 00:00:00 (TEL) [facility] ST[facility] [id number] [facility] 2023-11-15 00:00:00 2023-11-15 00:00:00 [facility] [id number] [facility] 2023-11-15 00:00:00 2023-11-15 00:00:00 [facility] [id number] [facility] 2023-10-30 14:20:00 2023-10-30 14:20:00 [facility] [id number] 2023-10-16 00:00:00 2023-10-16 00:00:00 (TEL) [facility] [id number] 2023-10-01 00:00:00 2023-10-01 00:00:00 [facility] 1.2.840.114 350.1.13.10 4.2.7.2.686 [id number] [id number] [facility] 2023-09-23 00:00:00 2023-09-23 00:00:00 Patient Secure Msg [facility] 1.2.840.114 350.1.13.10 4.2.7.2.686 [id number] [facility] 2023-09-21 14:45:00 2023-09-21 15:00:00 Hammer Heater Visit Pob, 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 [facility] 1.2.840.114 350.1.13.10 4.2.7.2.686 [id number] [facility] 2023-09-21 14:45:00 2023-09-21 14:45:00 [facility] [id number] 2023-08-29 13:42:58 2023-08-29 23:59:00 [facility] [id number] [facility] 2023-08-29 13:42:58 2023-08-29 23:59:00 [facility] 1.2.840.114 350.1.13.10 4.2.7.2.686 [id number] [facility] 2023-08-29 15:00:00 2023-08-29 15:38:41 [facility] 1.2.840.114 350.1.13.10 4.2.7.2.686 [id number] [id number] [facility] 2023-08-14 00:00:00 2023-08-14 00:00:00 OFFICE VISIT ESTAB PT LEVEL 4 STLMLC STLC [id number] [facility] 2023-07-10 16:00:00 2023-07-10 16:00:00 [facility] [id number] [facility] 2023-07-05 10:40:00 2023-07-05 10:40:00 Outpatient [facility] [id number] [facility] 2023-06-28 10:27:55 2023-06-28 23:59:00 [facility] [id number] [facility] 2023-06-28 10:27:55 2023-06-28 23:59:00 Hospital Encounter Navjot [facility] BUILDING 1.2.840.114 350.1.13.10 4.2.7.2.686 [id number] [facility] 2023-06-21 15:00:00 2023-06-21 15:00:00 [facility] [id number] [facility] 2023-06-18 09:40:00 2023-06-18 09:40:00 Outpatient R NAVJOT, QIANGJUN [facility] [id number] [facility] 2023-05-22 00:00:00 2023-05-22 00:00:00 OFFICE VISIT ESTAB PT LEVEL 4 STLMLC STLMLC [id number] [facility] 2023-05-22 00:00:00 2023-05-22 00:00:00 SUB ANNUAL [facility] VISIT STLMLC STLMLC [id number] [facility] 2023-04-05 00:00:00 2023-04-05 00:00:00 OFFICE VISIT ESTAB PT LEVEL 3 STLMLC STLMLC [id number] [facility] 2023-04-04 00:00:00 2023-04-04 00:00:00 (TEL) STLMLC STLMLC [id number] [facility] 2023-03-07 00:00:00 2023-03-07 00:00:00 OFFICE VISIT ESTAB PT LEVEL 4 STLMLC STLC [id number] [facility] 2023-02-27 00:00:00 2023-02-27 00:00:00 Orders Only Doctor Unassigned, [place] [facility] 1.2.840.114 350.1.13.10 4.2.7.2.686 [id number] [facility] 2023-02-22 00:00:00 2023-02-22 00:00:00 Telephone Chidi Flowers [facility] 1.2.840.114 350.1.13.10 4.2.7.2.686 [id number] [facility] 2023-02-15 00:00:00 2023-02-15 00:00:00 [facility] [id number] [facility] 2023-02-14 00:00:00 2023-02-14 00:00:00 [facility] 1.2.840.114 350.1.13.10 4.2.7.2.686 [id number] [facility] 2023-01-26 00:00:00 2023-01-26 00:00:00 (TEL) STLMLC STLMLC [id number] [facility] 2023-01-18 00:00:00 2023-01-18 00:00:00 (EST. VIDEO) EST VIRTUAL VIDEO VISIT STLMLC STLMLC [id number] [facility] 2023-01-12 00:00:00 2023-01-12 00:00:00 (TEL) STLMLC STLMLC [id number] [facility] 2022-12-18 13:40:00 2022-12-18 13:45:25 [facility] [id number] [facility] 2022-12-18 13:40:00 2022-12-18 13:45:25 Office Visit Chidi Flowers [facility] 1.2.840.114 350.1.13.10 4.2.7.2.686 [id number] [facility] 2022-12-18 00:00:00 2022-12-18 00:00:00 Orders Only Doctor Unassigned, [place] [facility] 1..840.114 350.1.13.10 4.2.7.2.686 [id number] [facility] 2022-12-12 00:00:00 2022-12-12 00:00:00 OFFICE VISIT ESTAB PT LEVEL 4 STLMLC STLC [id number] [facility] 2022-12-07 11:00:39 2022-12-07 23:59:00 Outpatient BHAVIN LY [facility] [id number] [facility] 2022-11-23 09:00:00 2022-11-23 09:00:00 Outpatient BHAVIN LY [facility] [id number] [facility] 2022-11-21 00:00:00 2022-11-21 00:00:00 Telephone Chidi Flowers [facility] BU[facility] 1.2.840.114 350.1.13.10 4.2.7.2.686 [id number] 059 [id number] [facility] 2022-11-20 00:00:00 2022-11-20 00:00:00 [facility] 1.2.840.114 350.1.13.10 4.2.7.2.686 [id number] 059 [id number] [facility] 2022-11-15 00:00:00 2022-11-15 00:00:00 [facility] 1.2.840.114 350.1.13.10 4.2.7.2.686 [id number] 059 [id number] [facility] 2022-11-13 14:20:00 2022-11-13 14:20:00 Outpatient R CHIDI FLOWERS [facility] [id number] [facility] 2022-11-10 00:00:00 2022-11-10 00:00:00 (TEL) STLMLC STLMLC [id number] [facility] 2022-10-27 00:00:00 2022-10-27 00:00:00 (TEL) STLMLC STLMLC [id number] [facility] 2022-10-13 00:00:00 2022-10-13 00:00:00 (TEL) STLMLC STLMLC [id number] [facility] 2022-10-11 00:00:00 2022-10-11 00:00:00 (TEL) STLMLC STLMLC [id number] [facility] 2022-10-11 00:00:00 2022-10-11 00:00:00 (TEL) STLMLC STLMLC [id number] [facility] 2022-09-13 00:00:00 2022-09-13 00:00:00 (TEL) STLMLC STLMLC [id number] [facility] 2022-09-11 00:00:00 2022-09-11 00:00:00 OFFICE VISIT ESTAB PT LEVEL 4 STLMLC STLMLC [id number] [facility] 2022-09-11 00:00:00 2022-09-11 00:00:00 Orders Only Doctor Unassigned, [place] [facility] 1.2.840.114 350.1.13.10 4.2.7.2.686 [id number] [facility] 2022-09-01 06:32:00 2022-09-01 08:54:00 Outpatient [place] [facility] [id number] [facility] 2022-09-01 06:32:00 2022-09-01 08:54:00 Hospital Encounter [facility] 1.2.840.114 350.1.13.10 4.2.7.2.686 [id number] [facility] 2022-09-01 07:30:00 2022-09-01 08:15:00 Surgery [facility] 1.2.840.114 350.1.13.10 4.2.7.2.686 [id number] [facility] 2022-08-28 15:00:00 2022-08-28 15:15:00 Hammer Heater Visit 1, Adc Lab [facility] 1.2.840.114 350.1.13.10 4.2.7.2.686 [id number] [facility] 2022-08-28 15:00:00 2022-08-28 15:00:00 Outpatient BHAVIN LY [facility] [id number] [facility] 2022-08-28 00:00:00 2022-08-28 00:00:00 Orders Only Doctor Unassigned, [place] [facility] 1..840.114 350.1.13.10 4.2.7.2.686 [id number] [id number] [facility] 2022-07-25 00:00:00 2022-07-25 00:00:00 Telephone Ellie Bhavin [facility] 1..840.114 350.1.13.10 4.2.7.2.686 [id number] [facility] 2022-07-10 00:00:00 2022-07-10 23:59:00 Outpatient R ELLIE [facility] [id number] [facility] 2022-07-10 00:00:00 2022-07-10 23:59:00 [facility] 1..840.114 350.1.13.10 4.2.7.2.686 [id number] [facility] 2022-06-14 00:00:00 2022-06-14 00:00:00 (TEL) [facility] [id number] [facility] 2022-06-06 14:00:00 2022-06-06 14:00:00 Outpatient R [facility] [id number] [facility] 2022-06-05 00:00:00 2022-06-05 00:00:00 (TEL) [facility] [id number] [facility] 2022-05-18 00:00:00 2022-05-18 00:00:00 [facility] 1..840.114 350.1.13.10 4.2.7.2.686 [id number] [facility] 2022-05-18 00:00:00 2022-05-18 00:00:00 [facility] 1.2.840.114 350.1.13.10 4.2.7.2.686 [id number] [facility] 2022-05-15 00:00:00 2022-05-15 00:00:00 SUB ANNUAL [facility] [id number] [facility] 2022-05-15 00:00:00 2022-05-15 00:00:00 OFFICE VISIT ESTAB PT LEVEL 4 [facility] [id number] [facility] 2022-05-10 00:00:00 2022-05-10 00:00:00 (TEL) [facility] [id number] [facility] 2022-05-09 14:00:00 2022-05-09 14:21:26 [facility] [id number] [facility] 2022-05-09 14:00:00 2022-05-09 14:21:26 Office Visit Navjot [facility] 1.2.840.114 350.1.13.10 4.2.7.2.686 [id number] [facility] 2022-05-09 14:00:00 2022-05-09 14:00:00 [facility] [id number] 2022-05-04 00:00:00 2022-05-04 00:00:00 Telephone Ellie [facility] 1.2.840.114 350.1.13.10 4.2.7.2.686 [id number] [facility] 2022-05-02 00:00:00 2022-05-02 00:00:00 Telephone Ellie [facility] 1.2840.114 350.1.13.10 4.2.7.2.686 [id number] [facility] 2022-04-20 00:00:00 2022-04-20 00:00:00 Telephone Charlene Clark [facility] 1.2.840.114 350.1.13.10 4.2.7.2.686 [id number] [facility] 2022-04-19 14:00:00 2022-04-19 14:00:00 [facility] [id number] [facility] 2022-04-18 00:00:00 2022-04-18 00:00:00 Telephone Navjot [facility] 1.2.840.114 350.1.13.10 4.2.7.2.686 [id number] [id number] [facility] 2022-04-17 00:00:00 2022-04-17 00:00:00 [facility]TEL[facility] [id number] 2022-04-17 00:00:00 2022-04-17 00:00:00 Telephone Charlene Clark [facility] OFF[facility] BUILDING 1.2.840.114 350.1.13.10 4.2.7.2.686 [id number] [id number] [facility] 2022-04-17 00:00:00 2022-04-17 00:00:00 [facility] 1..840.114 350.1.13.10 4.2.7.2.686 [id number] 059 [id number] [facility] 2022-04-14 00:00:00 2022-04-14 00:00:00 [facility]TEL) [facility] [id number] [facility] 2022-04-13 15:38:00 2022-04-13 17:56:00 Emergency X [facility] [id number] [facility] 2022-04-13 15:38:00 2022-04-13 17:56:00 Emergency Kameron Hayes [facility] 1.2.840.114 350.1.13.10 4.2.7.2.686 [id number] [facility] 2022-04-12 00:00:00 2022-04-12 00:00:00 Telephone Navjot [facility] BUILDING 1.2.840.114 350.1.13.10 4.2.7.2.686 [id number] 059 [id number] [facility] 2022-04-11 00:00:00 2022-04-11 00:00:00 Telephone Navjot [facility] BUILDING 1.2.840.114 350.1.13.10 4.2.7.2.686 [id number] [facility] 2022-04-10 00:00:00 2022-04-10 00:00:00 Telephone Bhavin Argueta [facility] 1.2.840.114 350.1.13.10 4.2.7.2.686 [id number] [facility] 2022-03-30 00:00:00 2022-03-30 00:00:00 Telephone Navjot [facility] 1.2.840.114 350.1.13.10 4.2.7.2.686 [id number] [id number] [facility] 2022-03-30 00:00:00 2022-03-30 00:00:00 Orders Only Doctor Unassigned, [place] [facility] 1.2.840.114 350.1.13.10 4.2.7.2.686 [id number] [facility] 2022-03-21 00:00:00 2022-03-21 00:00:00 Refill [facility]idi [facility] 1.2.840.114 350.1.13.10 4.2.7.2.686 [id number] [facility] 2022-03-17 10:20:00 2022-03-17 10:20:00 Outpatient R BHAVIN [facility] [id number] [facility] 2022-03-08 14:40:00 2022-03-08 14:40:00 [facility] [id number] [facility] 2022-02-13 14:00:00 2022-02-13 14:00:00 [facility] [id number] [facility] 2021-12-16 09:20:00 2021-12-16 23:59:00 Outpatient [place] [facility] [id number] 2021-12-06 00:00:00 2021-12-06 00:00:00 (TEL) STLMLC STLMLC [id number] [facility] 2021-12-02 09:40:00 2021-12-02 09:40:00 Outpatient BHAVIN LY [facility] [id number] [facility] 2021-12-02 00:00:00 2021-12-02 00:00:00 Renetta Chidi Flowers [facility] 1.2.840.114 350.1.13.10 4.2.7.2.686 [id number] [facility] 2021-11-30 00:00:00 2021-11-30 00:00:00 OL DIG E/M SVC 11-20 MIN STLMLC STLMLC [id number] [facility] 2021-11-29 00:00:00 2021-11-29 00:00:00 (TEL) STLMLC STLMLC [id number] [facility] 2021-11-18 10:40:00 2021-11-18 10:40:00 Outpatient BHAVIN LY [facility] [id number] [facility] 2021-11-18 00:00:00 2021-11-18 00:00:[address] [facility] 1.2.840.114 350.1.13.10 4.2.7.2.686 [id number] [facility] 2021-10-21 09:00:00 2021-10-21 09:00:00 Outpatient BHAVIN LY [facility] [id number] [facility] 2021-10-19 00:00:00 2021-10-19 00:00:00 [facility] 1.2.840.114 350.1.13.10 4.2.7.2.686 [id number] [facility] 2021-10-14 11:00:00 2021-10-14 11:00:00 Outpatient BHAVIN LY [facility] [id number] [facility] 2021-10-05 00:00:00 2021-10-05 00:00:00 (TEL) STLMLC STLMLC [id number] [facility] 2021-10-05 00:00:00 2021-10-05 00:00:00 OFFICE VISIT EST PT LEVEL 3 STLMLC STLMLC [id number] [facility] 2021-09-26 00:00:00 2021-09-26 00:00:00 Refill Omole, Jack Yasmani [facility] 1.2.840.114 350.1.13.10 4.2.7.2.686 [id number] [facility] 2021-09-21 00:00:00 2021-09-21 00:00:00 Patient Secure Msg [facility] 1.2.840.114 350.1.13.10 4.2.7.2.686 [id number] [facility] 2021-09-20 15:00:00 2021-09-20 23:59:00 [facility] [id number] [facility] 2021-09-20 15:00:00 2021-09-20 23:59:00 [facility] 1.2.840.114 350.1.13.10 4.2.7.2.686 [id number] [facility] 2021-09-13 00:00:00 2021-09-13 00:00:00 OFFICE VISIT ESTAB PT LEVEL 4 STLMLC STLMLC [id number] [facility] 2021-09-12 15:00:00 2021-09-12 15:00:00 [facility] [id number] [facility] 2021-09-12 00:00:00 2021-09-12 00:00:00 Telephone Navjot [facility] BUILDING 1.2.840.114 350.1.13.10 4.2.7.2.686 [id number] [facility] 2021-08-26 00:00:00 2021-08-26 00:00:00 (TEL) STLMLC STLMLC [id number] [facility] 2021-08-25 14:00:00 2021-08-25 14:00:00 Outpatient R BHAVIN [facility] [id number] [facility] 2021-08-16 14:20:00 2021-08-16 14:38:22 [facility] [id number] [facility] 2021-08-16 14:20:00 2021-08-16 14:38:22 [facility] [id number] [facility] 2021-08-16 14:08:08 2021-08-16 14:38:22 [facility] 1.2.840.114 350.1.13.10 4.2.7.2.686 [id number] [facility] 2021-08-10 00:00:00 2021-08-10 00:00:00 Abstract Lorraine Shipley [facility] 1.2.840.114 350.1.13.10 4.2.7.2.686 [id number] [facility] 2021-08-09 00:00:00 2021-08-09 00:00:00 Telephone Ellie [facility] BUILDING 1.2.840.114 350.1.13.10 4.2.7.2.686 [id number] [id number] [facility] 2021-08-08 00:00:00 2021-08-08 00:00:00 Telephone Ellie [facility] MEDICAL OFFICE BUILDING 1.2.840.114 350.1.13.10 4.2.7.2.686 [id number] [id number] [facility] 2021-08-08 00:00:00 2021-08-08 00:00:00 Telephone Ellie [facility] BUILDING 1.2.840.114 350.1.13.10 4.2.7.2.686 [id number] [facility] 2021-08-04 08:00:00 2021-08-04 23:59:00 Outpatient R ELLIE [facility] [id number] [facility] 2021-08-04 08:00:00 2021-08-04 23:59:00 Outpatient R BHAVIN [facility] [id number] [facility] 2021-08-04 08:00:00 2021-08-04 23:59:00 Outpatient [facility]IN [facility] [id number] [facility] 2021-08-04 07:22:49 2021-08-04 23:59:00 [facility] 1.2.840.114 350.1.13.10 4.2.7.2.686 [id number] [facility] 2021-08-03 00:00:00 2021-08-03 00:00:00 [facility] 1.2.840.114 350.1.13.10 4.2.7.2.686 [id number] [facility] 2021-08-02 14:58:32 2021-08-02 15:13:32 Hammer Heater Visit Pob, 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 Ellie [facility] 1.2.840.114 350.1.13.10 4.2.7.2.686 [id number] [facility] 2021-08-02 14:57:30 2021-08-02 15:12:30 Laboratory Only Only, Adc Test Bhavin Argueta [facility] 1.2.840.114 350.1.13.10 4.2.7.2.686 [id number] [facility] 2021-08-02 15:00:00 2021-08-02 15:00:00 Outpatient BHAVIN LY [facility] [id number] [facility] 2021-08-02 10:30:00 2021-08-02 10:30:00 Outpatient BHAVIN LY [facility] [id number] [facility] 2021-07-14 00:00:00 2021-07-14 00:00:00 Telephone Bhavin Argueta [facility] 1.2.840.114 350.1.13.10 4.2.7.2.686 [id number] [facility] 2021-07-08 08:00:00 2021-07-08 08:00:00 Outpatient R BHAVIN [facility] [id number] [facility] 2021-07-06 10:30:00 2021-07-06 10:30:00 Outpatient R [facility] [id number] [facility] 2021-07-04 00:00:00 2021-07-04 00:00:00 (TEL) STLMLC STLMLC [id number] [facility] 2021-06-24 00:00:00 2021-06-24 00:00:00 (TEL) STLMLC STLMLC [id number] [facility] 2021-06-22 08:00:00 2021-06-22 08:00:00 Outpatient R [facility] [id number] [facility] 2021-06-17 00:00:00 2021-06-17 00:00:00 (TEL) STLMLC STLMLC [id number] [facility] 2021-06-17 00:00:00 2021-06-17 00:00:00 OL DIG E/M SVC 11-20 MIN STLMLC STLMLC [id number] [facility] 2021-06-16 00:00:00 2021-06-16 00:00:00 (TEL) STLMLC STLMLC [id number] [facility] 2021-06-03 00:00:00 2021-06-03 00:00:00 (TEL) STLMLC STLMLC [id number] [facility] 2021-05-20 00:00:00 2021-05-20 00:00:00 Telephone Sewani, Bhavin [facility] 1.2.840.114 350.1.13.10 4.2.7.2.686 [id number] [facility] 2021-05-12 00:00:00 2021-05-12 00:00:00 (TEL) STLMLC STLMLC [id number] [facility] 2021-05-10 11:29:31 2021-05-10 12:11:58 Office Visit Bhavin Argueta [facility] 1.2.840.114 350.1.13.10 4.2.7.2.686 [id number] [facility] 2021-05-10 11:40:00 2021-05-10 11:40:00 Outpatient R BHAVIN [facility]A [facility] [id number] [facility] 2021-04-15 00:00:00 2021-04-15 00:00:00 Outpatient STLMLC STLMLC [id number] [facility] 2021-04-05 14:40:00 2021-04-05 14:40:00 Outpatient R BHAVIN ARGUETA [facility] [id number] [facility] 2021-04-05 14:30:00 2021-04-05 14:30:00 Outpatient R [facility] [id number] [facility] 2021-03-31 00:00:00 2021-03-31 00:00:00 Outpatient STLMLC STLMLC [id number] [facility] 2021-03-31 00:00:00 2021-03-31 00:00:00 Outpatient STLMLC STLMLC [id number] [facility] 2021-03-25 13:00:00 2021-03-25 13:00:00 Outpatient R YUDITH CROWE [facility] [id number] [facility] 2021-02-16 00:00:00 2021-02-16 00:00:00 Outpatient STLMLC STLMLC [id number] [facility] 2021-01-03 00:00:00 2021-01-03 00:00:00 Outpatient BHAVIN ARGUETA [facility] [id number] [facility] 2020-12-13 00:00:00 2020-12-13 00:00:00 Outpatient STLMLC STLMLC [id number] [facility] 2020-12-06 14:00:00 2020-12-06 14:00:00 Outpatient R OMOLE, JACK [facility] [id number] [facility] 2020-12-01 00:00:00 2020-12-01 00:00:00 Outpatient STLMLC STLMLC [id number] [facility] 2020-12-01 00:00:00 2020-12-01 00:00:00 Outpatient STLMLC STLMLC [id number] [facility] 2020-10-05 14:01:57 2020-10-05 14:44:53 Laboratory Only [facility] 1.2.840.114 350.1.13.10 4.2.7.2.686 [id number] 2020-10-05 14:01:57 2020-10-05 14:44:53 Laboratory Only Pacemaker/I cd, [facility] 1.2.840.114 350.1.13.10 4.2.7.2.686 [id number] [facility] 2020-10-05 14:30:00 2020-10-05 14:30:00 Outpatient R [facility] [id number] [facility] 2020-10-04 00:00:00 2020-10-04 00:00:00 [facility] 1.2.840.114 350.1.13.10 4.2.7.2.686 [id number] 2020-10-04 00:00:00 2020-10-04 00:00:00 [facility] 1.2.840.114 350.1.13.10 4.2.7.2.686 [id number] [facility] 2020-10-04 00:00:00 2020-10-04 00:00:00 Outpatient STLMLC STLMLC [id number] [facility] 2020-09-06 16:44:57 2020-09-06 16:59:57 [facility] Heater Visit Pob, 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 [facility] nal Building 1.2.840.114 350.1.13.10 4.2.7.2.686 [id number] 2020-09-06 16:44:57 2020-09-06 16:59:57 [employer] Heater Visit Pob, 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 1.2.840.114 350.1.13.10 4.2.7.2.686 [id number] [facility] 2020-09-06 15:43:17 2020-09-06 16:28:17 [facility] 1.2.840.114 350.1.13.10 4.2.7.2.686 [id number] 2020-09-06 15:43:17 2020-09-06 16:28:17 [facility] 1.2.840.114 350.1.13.10 4.2.7.2.686 [id number] [facility] 2020-09-06 15:45:00 2020-09-06 15:45:00 Outpatient R JACK GOSS [facility] [id number] [facility] 2020-09-06 00:00:00 2020-09-06 00:00:00 Orders Only Doctor Unassigned, [place] [facility] 1.840.114 350.1.13.10 4.2.7.2.686 [id number] [facility] 2020-08-31 00:00:00 2020-08-31 00:00:00 Outpatient STLMLC [facility] [id number] [facility] 2020-08-03 11:00:00 2020-08-03 11:00:00 Outpatient R [facility] [id number] [facility] 2020-07-06 08:00:00 2020-07-06 08:00:00 Outpatient R [facility] [id number] [facility] 2020-06-18 09:45:00 2020-06-18 09:45:00 [id number] 2020-05-14 09:30:00 2020-05-14 09:30:00 [facility] [facility] [facility] [place] [facility] Medicine [id number] [facility] 2020-05-03 14:05:31 2020-05-03 14:20:31 Hammer Heater Visit Pob, 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 [place] 1..840.114 350.1.13.10 4.2.7.2.686 [id number] [facility] 2020-05-03 12:54:43 2020-05-03 13:43:46 Office Visit Fac, Adc [facility] 1..840.114 350.1.13.10 4.2.7.2.686 [id number] [facility] 2020-05-03 13:00:00 2020-05-03 13:00:00 Outpatient R [facility] [id number] [facility] 2020-03-19 10:02:38 2020-03-19 21:31:06 Nurse Visit Visit, Adc Nurse [facility]ac[facility] 1.84.114 350.1.13.10 4.2.7.2.686 [id number] [facility] 2020-03-19 10:00:00 2020-03-19 10:00:00 Outpatient R [facility] [id number] [facility] 2020-03-19 00:00:00 2020-03-19 00:00:00 Orders Only Doctor Unassigned, [place] [facility] 1.84.114 350.1.13.10 4.2.7.2.686 [id number] [facility] 2020-03-01 13:30:00 2020-03-01 13:30:00 Outpatient R CHIDI FLOWERS [facility] [id number] [facility] 2020-02-25 08:15:00 2020-02-25 08:15:00 [facility] Medicine [id number] [facility] 2020-02-25 08:00:00 2020-02-25 08:00:00 [facility] [id number] [facility] 2020-01-22 00:00:00 2020-01-22 00:00:00 Refill Claire [facility] 1.840.114 350.1.13.10 4.2.7.2.686 [id number] [facility] 2020-01-22 00:00:00 2020-01-22 00:00:00 Refill Jack Goss [place] [facility] 1.84.114 350.1.13.10 4.2.7.2.686 [id number] [facility] 2020-01-05 15:23:00 2020-01-05 15:23:00 [place] [facility] [place] [facility] Medicine [id number] [facility] 2019-12-01 15:01:39 2019-12-01 15:31:39 Office Visit Fac, Adc Heart Failure Cardio Claire Piña [facility] Building 1..840.114 350.1.13.10 4.2.7.2.686 [id number] [facility] 2019-12-01 15:00:00 2019-12-01 15:00:00 Outpatient R [facility] [id number] [facility] 2019-11-29 10:15:32 2019-11-29 10:30:32 [place] Heater Visit Pob, 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 Claire Piña [facility] Building 1.840.114 350.1.13.10 4.2.7.2.686 [id number] [facility] 2019-11-29 10:15:00 2019-11-29 10:15:00 [facility] [id number] 2019-11-20 14:09:20 2019-11-24 08:17:57 Laboratory Only Pc, Adc Echo Room 1 - [facility] Building 1..840.114 350.1.13.10 4.2.7.2.686 [id number] [facility] 2019-11-23 00:00:00 2019-11-23 00:00:00 Telephone Karlene Nelson [facility] 1.840.114 350.1.13.10 4.2.7.2.686 [id number] [facility] 2019-11-20 16:00:2019-11-20 16:00:00 Outpatient R [facility] [id number] [facility] 2019-11-20 14:00:00 2019-11-20 14:00:00 Outpatient R [facility] [id number] [facility] 2019-11-10 00:00:00 2019-11-10 00:00:00 [facility] 1.2.840.114 350.1.13.10 4.2.7.2.686 [id number] [facility] 2019-11-04 13:53:34 2019-11-04 14:08:34 Hammer Heater Visit Pob, 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 Claire Piña [facility] Building 1.2.840.114 350.1.13.10 4.2.7.2.686 [id number] [facility] 2019-10-29 00:00:00 2019-10-29 00:00:00 [facility] 1.2.840.114 350.1.13.10 4.2.7.2.686 [id number] [facility] 2019-10-21 00:00:00 2019-10-21 00:00:00 Refill Claire Piña [facility] Building 1.2.840.114 350.1.13.10 4.2.7.2.686 [id number] [facility] 2019-10-17 09:26:33 2019-10-17 13:13:48 Nurse Visit Visit, Adc [facility] 1.2.840.114 350.1.13.10 4.2.7.2.686 [id number] [facility] 2019-10-17 00:00:00 2019-10-17 00:00:00 Orders Only Doctor Unassigned, [place] [facility] 1.2.840.114 350.1.13.10 4.2.7.2.686 [id number] [facility] 2019-10-06 15:39:00 2019-10-06 15:39:00 [place] [facility] [address] [facility] [place] [facility] [id number] [facility] 2019-08-07 15:15:00 2019-08-07 15:15:00 [place] [facility] [address] [facility] [place] [facility] [id number] [facility] 2019-07-16 13:31:00 2019-07-16 13:31:00 [place] [facility] [address] [facility] [place] [facility] [id number] [facility] 2019-07-10 11:31:00 2019-07-10 11:31:00 [place] [address] [facility] [place] [facility] [id number] [facility] 2019-06-16 13:45:00 2019-06-16 13:45:00 [place] [facility] [address] [facility] [place] [facility] [id number] [facility] 2019-06-06 11:58:00 2019-06-06 11:58:00 [place] [address] [facility] [place] [facility] [id number] [facility] 2019-06-04 11:13:00 2019-06-04 11:13:00 [place] [address] [facility] [place] [facility] [id number] [facility] 2019-06-03 11:31:00 2019-06-03 11:31:00 [place] [address] [facility] [place] [facility] [id number] [facility] 2019-05-05 13:05:32 2019-05-13 15:22:02 Office Visit Fac, Adc Heart Failure Cardio Giacomo Mae [address]840.114 350.1.13.10 4.2.7.2.686 [id number] [id number] [facility] 2019-05-13 00:00:00 2019-05-13 00:00:00 Telephone Fac, Adc Heart Failure Cardio [facility] 1.2840.114 350.1.13.10 4.2.7.2.686 [id number] [facility] 2019-05-13 00:00:00 2019-05-13 00:00:00 Orders Only Doctor Unassigned, [place] [facility] 1.2840.114 350.1.13.10 4.2.7.2.686 [id number] [facility] 2019-05-01 00:00:00 2019-05-01 00:00:00 Telephone Fac, Adc Heart Failure Cardio [facility] 1.2840.114 350.1.13.10 4.2.7.2.686 [id number] [facility] 2019-05-01 00:00:00 2019-05-01 00:00:00 Telephone Fac, Adc Heart Failure Cardio [facility] 1.284.114 350.1.13.10 4.2.7.2.686 [id number] [facility] 2019-04-01 13:00:00 2019-04-01 13:00:00 Outpatient [facility] Medicine [facility] [id number] [facility] 2018-12-25 15:45:00 2018-12-25 15:45:00 Outpatient [facility] Family Medicine [facility] [id number] [facility] 2018-10-06 00:00:00 2018-10-06 00:00:00 Orders Only Doctor Unassigned, [place] [facility] 1.2840.114 350.1.13.10 4.2.7.2.686 [id number] [facility] Results Test Description Test Time Test Comments Results Result Co mments Source Transthoracic echo (TTE)2023-08-30 03:00:14* Test Item Value Reference Range Interpretation Comme nts Height (test code = 5896165103) 67 in Weight (test code = 0646290030) 194 lbs Systolic BP (test code = 6183749834) 116 mmHg Diastolic BP (test code = 4249870344) 65 mmHg Heart Rate (test code = 6085660165) 74 bpm Ao root diam (test code = 4987571519) 2.60 cm Aortic root (test code = 0484223890) 2.6 cm Ao root annulus (test code = 2774234227) 2.6 cm BSA (test code = 7121465350) 2.00 m2 LVOT diameter (test code = 2609185215) 1.98 cm LVOT area (test code = 6121576286) 3.10 cm2 LA size (test code = 8311509905) 4.2 cm ACS (test code = 1927422630) 2.09 cm PV PEAK VELOCITY (test code = 5631535274) 75.5 cm/s PV peak gradient (test code = 7761543870) 2.28 mmHg TR Peak Crow (test code = 3475886330) 223.8 cm/s Triscuspid Valve Regurgitation Peak Gradient (test code = 2192609343) 20.1 mmHg MV E-F slope (test code = 9049293549) 27.20 cm/s MV Peak E Crow (test code = 4131826704) 55.0 cm/s MV Peak A Crow (test code = 2367985859) 72.8 cm/s E/A ratio (test code = 1194886640) 0.76 ratio MV valve area p 1/2 method (test code = 9675488670) 6.20 cm2 MV dec slope (test code = 0028395980) 443.30 cm/s2 MV P1/2t max crow (test code = 7026202970) 54.00 cm/s MR max PG (test code = 7332627233) 35.40 mm[Hg] MR max crow (test code = 5921393877) 292.80 cm/s Mr max crow (test code = 9215938792) 292.8 m/s LVOT stroke volume (test code = 1751771582) 44.60 cm3 LVOT peak crow (test code = 1561385882) 69.7 cm/s LVOT mn grad (test code = 3736900421) 0.8 mmHg AV LVOT peak gradient (test code = 4378650188) 1.94 mmHg LVOT peak VTI (test code = 1292342049) 14.5 cm LV V1 mean (test code = 3360210313) 41.20 cm/s Aortic valve mean velocity (test code = 2314341502) 84.7 cm/s Ao peak crow (test code = 5596787633) 136.4 cm/s Ao VTI (test code = 9634494534) 28.4 cm AV area by cont VTI (test code = 7048437888) 1.6 cm2 AV area peak crow (test code = 6721789738) 1.6 cm2 Ao max PG (test code = 2514446116) 7.40 mm[Hg] AV peak gradient (test code = 5893016950) 7.4 mmHg AV valve area (test code = 7310496173) 1.57 cm2 AV mean gradient (test code = 9779987391) 3.3 mmHg LAV(MOD-sp4) (test code = 8061299962) 29.80 mL LA Volume Index (BP) (test code = 3845009151) 15.9 mL/m2 LA volume (BP) (test code = 7542003204) 31.7 mL LAV(MOD-sp2) (test code = 3305166274) 32.30 mL LVIDD (test code = 6292096789) 4.50 cm Left Ventricular End Diastolic Volume by Teichholz Method (test code = 4559993) 93.9 mL IVS (test code = 9214908119) 0.77 cm Interventricular Septum Diastolic Thickness by 2D (test code = 5550935) 0.77 cm LVPWD (test code = 3080603472) 0.97 cm PW (test code = 8876874903) 0.97 cm 0.6-1.1 EF(Teich) (test code = 5928352238) 46.10 % LVIDS (test code = 2274826678) 3.50 cm Left Ventricular End Systolic Volume by Teichholz Method (test code = 9950142) 50.6 mL FS (test code = 4644715173) 23 % EF - 2D (test code = 01786786) 46.10 % Radiology Study observation (narrative) (test code = 07658-7) VALERIY (test code = VALERIY) ?Left?Ventricle: Left ventricle size is normal. Normal wall thickness. Mild global hypokinesis present. Mildly reduced systolic function with a visually estimated EF of 40 - 50%. There is impaired relaxation. ?Tricuspid?Valve: Right ventricular systolic pressure is normal. ?RA pressure is 0-5 mmHg. Left VentricleLeft ventricle size is normal. Normal wall thickness. Mild global hypokinesis present. Mildly reduced systolic function with a visually estimated EF of 40 - 50%. There is impaired relaxation.Right VentricleRight ventricle size is normal. Normal systolic function. There is a pacemaker lead in the right ventricle.Left AtriumLeft atrium size is normal.Right AtriumRight atrium size is normal. Lead present in the right atrium.IVC/SVCIVC diameter is less than or equal to 21 mm and decreases greater than 50% during inspiration; therefore the estimated right atrial pressure is normal (~0-5 mmHg).Mitral ValveMitral valve structure is normal. Trace transvalvular regurgitation.Tricusp id ValveTricuspid valve structure is normal. Trace transvalvular regurgitation. Right ventricular systolic pressure is normal. RA pressure is 0-5 mmHg.Aortic ValveTricuspid.Pulmon ic ValveNot well visualized. Trace transvalvular regurgitation.Ascendi ng AortaNormal sized aorta.PericardiumTriv ial pericardial effusion present.Study DetailsStudy quality was adequate. A complete echocardiogram was performed using 2D, color flow Doppler and spectral Doppler. 5 mL of Lumason ultrasound enhancing agent used. [facility] REFLEX TO FREE [id number] 00:00:00* Test Item Value Reference Range Interpretation Comme nts TSH REFLEX TO FREE T4 (test code = 78948-1) 0.585 UIU/ML See_Comment [Automated [employer]] The system which generated this result transmitted reference range: 0.400-4.100 UIU/ML. The reference range was not used to interpret this result as normal/abnormal. [id number] 00:00:00* Test Item Value Reference Range Interpretation Comme nts FERRITIN (test code = 94923-0) 78 NG/ML See_Comment [Automated [employer] ge] The system which generated this result transmitted reference range: 13-200 NG/ML. The reference range was not used to interpret this result as normal/abnormal. STREP A [id number] 00:00:00* Test Item Value Reference Range Interpretation Comme nts Result (test code = 32586-8) NEGATIVE POC, COVID 19 Antigen + Flu by SofiaPOC, COVID 19 Antigen + Flu by SofiaSARS-COV 2 AntigenSARS-COV 2 Antigen Notes Date/Time Note Provider Source 2024-06-27 11:46:44 Refill request for zetia received. Refill sent to pharmacy of choice. Patient is compliant as per [facility] Cardiology Protocol. [facility] 2024-06-27 10:57:05 Mariela Tripp is a 74 year old female Pharmacy is calling to request refill on RX ezetimibe 10 mg tablet -- Please advise [facility] Mail Delivery - [facility] [address] [place] [address] Taylor Antony 06/27/2024 10:58 AM [facility] 2024-01-02 08:44:21 Images from the original note were not included. Requested Prescriptions Pending Prescriptions Disp Refills ezetimibe 10 mg tablet 30 tablet 11 Sig: Take 1 tablet by mouth in the morning. Antilipid: Sterol Transport Inhibitors Hcswso9001/02/2024 07:57 AM Protocol Details AST in normal range and within 360 days Valid encounter within last 12 months ALT in normal range and within 360 days HDL within 360 days LDL within 360 days Total Cholesterol within 360 days Triglycerides within 360 days SHAMEKA 08/29/23 Labs 08/2023, reviewed by Dr. Flowers. See below. "Chidi Flowers MD to Mariela Tripp 09/23/23 1:35 PM Nirmal Steinberg, Your cholesterol has improved significantly. Labs are normal. Please continue your medications. Chidi Flowers MD, [facility], [place] [employer] Division of Cardiovascular Medicine [facility]" Maria Luisa Martinez RN [facility] 2023-11-15 16:15:19 Images from the original note were not included. Refill approved per cardiology protocol: Cardiovascular: Beta Blockers Vhllzu3811/15/2023 02:07 PM Protocol Details Valid encounter within last 12 months Heart rate within normal limits and completed in the last 12 months R ENGINEER Janett Cotter MA [facility] 2023-11-15 09:42:06 Refill request received for Entresto 24- SHAMEKA 08/29/23 "HFrEF--No volume overload. On lasix 20 mg daily. BMP December 07, 2022--normal K, creatinine 1.24. Continue coreg and entresto" NOV not scheduled Labs 09/21/23, reviewed by Dr. Flowers. WNL. Refill sent to [facility] Mail Delivery - [address] R ENGINEER Maria Luisa Martinez RN [facility] 2023-10-01 11:15:05 Addended by: MARIA LUISA MARTINEZ RN on: 10/01/2023 11:15 AM Modules accepted: Orders R ENGINEER Maria Luisa Martinez RN [facility] 2023-10-01 11:14:49 Medication record updated. [facility] 2023-10-01 10:51:18 Stop both [facility] 2023-10-01 10:47:28 Patient calling stating that she is unable to tolerate the Jardiance or the Spironolactone. She tried coming off of the spironolactone for 1 week which did improve her dizziness but she is still having GI symptoms and not feeling well on the jardiance. She states that she was feeling fine before the medication changes so she does not want to continue with the jardiance or the spironolactone. She plans to stop the jardiance as well now to see if it improves her symptoms. Routing to notify Dr. Flowers Martinez RN [facility] 2023-10-01 10:40:29 Mariela Tripp is a 73 year old female stomach issues, fever, night sweats comes and goes since taking empagliflozin 10 mg (Jardiance). Please advise [place] [facility] 2023-09-25 15:18:33 Discussed with patient. She will try holding to Jardiance to see if any improvement in symptoms. She will call back with update. R ENGINEER Maria Luisa Martinez RN [facility] 2023-09-25 12:57:44 More likely from Jardiance. Hold Jardiance see if gets better. [facility] 2023-09-25 12:38:40 Patient call regarding possible side effects of the new medications Jardiance and Spironolactone. Stated she has been having dizziness, frequent urination and diarrhea since starting these medications. She stated that she thinks it could be the Spironolactone. Discussed stopping the Spironolactone to see if side effects improve. She will call back in 2 days to discuss results Routed to Dr Flowers for advice R ENGINEER Melissa Mirza RN [facility] 2023-09-21 14:45:00 Images from the original note were not included. Pt is here to complete labs for Chidi Flowers MD. Alireza Decker 09/21/2023 2:32 PM Venipuncture collection performed by clean technique on the right anticubitus. Total of 1 attempts were made. Slight pressure and a bandage/dressing were applied to the site(s). The patient experienced no complications. The following specimens were processed according to instructions and sent to [facility] laboratories per lab order on 09/21/2023 : LT BLUE SST 1 RED LAV 1 PPT DK GREEN (LiHep) DK GREEN (SodH) EVANS DK BLUE (K2) DK BLUE (S) ACD Blood Culture NIPT/NTD [facility]
[2024-07-29] MEDS ORDERED: NA CHLORIDE 0.9% 1,000 ML ONE (14:13)
--- NOTE | 2024-07-29 14:24 | RAD REPORT ---
EXAMINATION: ONE VIEW CHEST XR CLINICAL INDICATION: near syncope TECHNIQUE: Frontal chest projection is submitted. Examination is limited by patient positioning and t echnique. COMPARISON: 01/04/2023 FINDINGS: The lungs are well inflated and clear. The heart is normal in size. No displaced fractures identified . Multilead pacer/defibrillator device present. IMPRESSION: No acute intrathoracic abnormalities.
[2024-07-29 15:06] LABS: Specific Gravity 1.012 (1.005-1.030); Sqamous Epithelial <5 /HPF (None Seen); Urine Bacteria <20 /HPF (<20); Urine Bilirubin NEGATIVE (Negative); Urine Blood Negative (Negative); Urine Clarity Clear (Clear); Urine Color Yellow (Yellow); Urine Culture Reflex Order NOT NEEDED; Urine Glucose NEGATIVE (Negative); Urine Ketones NEGATIVE (Negative); Urine Microscopic Reflex YN ORDER UMIC; Urine Mucus Slight /HPF (None Seen); Urine Nitrite NEGATIVE (Negative); Urine Protein NEGATIVE (Negative); Urine RBC <5 /HPF (None Seen); Urine Urobilinogen Normal (Normal); Urine WBC <5 /HPF (<5); Urine pH 6.5 (5.0-7.0)
--- NOTE | 2024-07-29 15:33 | ER ---
Nurse's Notes [facility] Name: Maryan Tripp Age: 74 yrs Sex: Female : 1950 Arrival Date: 07/29/2024 Time: 13:04 Bed 13 Private MD: Diagnosis: Syncope Near Presentation: 07/29 13:27 Chief complaint: EMS states: MOMENTARY DIAPHORESIS AND NEAR-SYNCOPE DURING MAMMOGRAM, bp S/S NOW RESOLVED. Coronavirus screen: At this time, the client does not indicate any symptoms associated with coronavirus-19. Ebola Screen: No symptoms or risks identified at this time. Initial Sepsis Screen: Does the patient meet any 2 criteria? No. Patient's initial sepsis screen is negative. Does the patient have a suspected source of infection? No. Patient's initial sepsis screen is negative. Risk Assessment: Do you want to hurt yourself or someone else? Patient reports no desire to harm self or others. Onset of symptoms was July 29, 2024 at 13:00. 13:27 Method Of Arrival: Wheelchair bp 13:27 Acuity: BRAYAN 3 bp Triage Assessment: 13:28 General: Appears in no apparent distress. comfortable, Behavior is calm, cooperative, bp appropriate for age. Pain: Denies pain. EENT: No deficits noted. Neuro: Reports MOMENTARY NEAR-SYNCOPE. Cardiovascular: No deficits noted. Respiratory: No deficits noted. GI: No signs and/or symptoms were reported involving the gastrointestinal system. : No signs and/or symptoms were reported regarding the genitourinary system. Derm: No deficits noted. Musculoskeletal: No deficits noted. Historical: - Allergies: 13:28 Sulfa (Sulfonamide Antibiotics); bp - PMHx: 13:28 cardiac stents; Thyroid problem; Pacemaker; /defibrilator; Myocardial infarction; COPD; bp CHF; - PSHx: 13:28 hip replacement; bp - Immunization history:: Adult Immunizations up to date. - Infectious Disease History:: Denies. - Social history:: Smoking status: Patient denies any tobacco usage or history of. Screenin:[address] [facility] ED Fall Risk Assessment (Adult) History of falling in the last 3 months, bp including since admission No falls in past 3 months (0 pts) Confusion or Disorientation No (0 pts) Intoxicated or Sedated No (0 pts) Impaired Gait No (0 pts) Mobility Assist Device Used No (0 pt) Altered Elimination No (0 pt) Score/Fall Risk Level 0 - 2 = Low Risk. Abuse screen: Denies threats or abuse. Denies injuries from another. Nutritional screening: No deficits noted. Tuberculosis screening: No symptoms or risk factors identified. Assessment: 13:30 General: Appears in no apparent distress. comfortable, Behavior is calm, cooperative, bp appropriate for age. 15:02 Reassessment: PT REFUSING PIV ACCESS, PROVIDER NOTIFIED Patient states feeling better. bp Vital Signs: 13:27 BP 122 / 72; Pulse 73; Resp 16; Temp 98; Pulse Ox 98% ; bp 15:02 BP 143 / 74; Pulse 72; Resp 16; Pulse Ox 98% ; bp 16:28 BP 132 / 80; Pulse 74; Resp 16; Pulse Ox 98% ; bp ED Course: 13:27 Patient arrived in ED. bp 13:28 Triage completed. bp 13:28 Arm band placed on. bp 13:29 [employer] FNP-C is PHCP. kb 13:29 Ximena Mcmullen MD is Attending Physician. kb 13:30 Patient has correct armband on for positive identification. bp 13:31 Goldy Garrett, RN is Primary Nurse. bp 14:22 Chest Single View XRAY In Process Unspecified. EDMS 16:28 No provider procedures requiring assistance completed. Patient did not have IV access bp during this emergency room visit. Administered Medications: 15:01 Not Given (Patient Refused): ns 0.9% 500 ml 500 ml IV at 1 bolus once; to be given as a bp bolus over 30 minutes Medication: 13:30 VIS not applicable for this client. bp Outcome: 15:32 Discharge ordered by . kb 16:28 Discharged to home via wheelchair, bp 16:28 Condition: stable 16:28 Discharge instructions given to patient, Instructed on discharge instructions, follow up and referral plans. Demonstrated understanding of instructions, follow-up care, 16:29 Patient left the ED. bp Signatures: Dispatcher [employer] EDMS [employer] FNP-C FNP-Goldy Cameron, RN RN bp
--- NOTE | 2024-07-29 15:33 | EDPHYS ---
Physician Documentation [facility] Name: Maryan Tripp Age: 74 yrs Sex: Female : 1950 Arrival Date: 07/29/2024 Time: 13:04 Bed 13 Private MD: ED Physician Ximena Mcmullen HPI: 07/29 13:46 This 74 yrs old Female presents to ER via Wheelchair with complaints of Near Syncope. 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 States she got diaphoretic and dizzy so she sat down and symptoms resolved. States "I feel fantastic now, but wanted to make sure everything was ok." Pt states she only ate 2 pieces of bread this morning and knows that is what caused this to happen. Denies chest pain, shortness of breath, palpitations. . Historical: - Allergies: 13:28 Sulfa (Sulfonamide Antibiotics); bp - PMHx: 13:28 cardiac stents; Thyroid problem; Pacemaker; /defibrilator; Myocardial infarction; COPD; bp CHF; - PSHx: 13:28 hip replacement; bp - Immunization history:: Adult Immunizations up to date. - Infectious Disease History:: Denies. - Social history:: Smoking status: Patient denies any tobacco usage or history of. ROS: 13:48 Constitutional: As per HPI kb Exam: 13:48 Constitutional: This is a well developed, well nourished patient who is awake, alert, kb and in no acute distress. Head/Face: Normocephalic, atraumatic. Eyes: Pupils equal round and reactive to light, extra-ocular motions intact. Lids and lashes normal. Conjunctiva and sclera are non-icteric and not injected. Cornea within normal limits. Periorbital areas with no swelling, redness, or edema. ENT: Moist Mucous membranes Cardiovascular: Regular rate Respiratory: Respirations even and unlabored. No increased work of breathing. Talking in full sentences Abdomen/GI: Soft, non-tender. No distention Skin: Warm, dry with normal turgor. Normal color. MS/ Extremity: Pulses equal, no cyanosis. Neurovascular intact. Full, normal range of motion. Neuro: Awake and alert, GCS 15, oriented to person, place, time, and situation. 13:59 ECG was reviewed by the Attending Physician. kb Vital Signs: 13:27 BP 122 / 72; Pulse 73; Resp 16; Temp 98; Pulse Ox 98% ; bp 15:02 BP 143 / 74; Pulse 72; Resp 16; Pulse Ox 98% ; bp 16:28 BP 132 / 80; Pulse 74; Resp 16; Pulse Ox 98% ; bp MDM: 13:29 Medical Screening Exam initiated kb 15:31 Differential Diagnosis: cardiac arrhythmia, emotional response, idiopathic syncope, kb vasovagal episode. Data reviewed: vital signs, nurses notes. Counseling: I had a detailed discussion with the patient and/or guardian regarding the historical points, exam findings, and any diagnostic results supporting the discharge/admit diagnosis, lab results, radiology results, the need for outpatient follow up, a family practitioner, to return to the emergency department if symptoms worsen or persist or if there are any questions or concerns that arise at home. ED course: Pt refuses serum labs. Now ready to go home. States she feels normal. . 07/29 13:30 Order name: Urinalysis w/ reflexes; Complete Time: 15:13 kb 07/29 13:30 Order name: Chest Single View XRAY; Complete Time: 14:24 kb 07/29 13:30 Order name: Cardiac monitoring; Complete Time: 14:03 kb 07/29 13:30 Order name: EKG - Nurse/Tech; Complete Time: 14:03 kb 07/29 13:30 Order name: NPO; Complete Time: 14:03 kb 07/29 13:30 Order name: O2 Per Protocol; Complete Time: 14:03 kb 07/29 13:30 Order name: O2 Sat Monitoring; Complete Time: 14:03 kb EC:59 Rate is 73 beats/min. Rhythm is regular. QRS Carmen is Normal. QRS interval is normal at kb 124 msec. QT interval is normal at 480 msec. Administered Medications: 15:01 Not Given (Patient Refused): ns 0.9% 500 ml 500 ml IV at 1 bolus once; to be given as a bp bolus over 30 minutes Disposition Summary: 07/29/24 15:32 Discharge Ordered Notes: Location: Home Condition: Stable Diagnosis - Syncope Near kb Followup: kb - With: Emergency Department - When: As needed - Reason: Worsening of condition Followup: kb - With: Private Physician - When: 2 - 3 days - Reason: Recheck today's complaints, Continuance of care, Re-evaluation by your physician Discharge Instructions: - Discharge Summary Sheet kb - Near-Syncope, [id number] kb Forms: - Medication Reconciliation Form kb - Antibiotic Education kb - Prescription Opioid Use kb - Patient Portal Instructions kb - Leadership Thank You Letter kb Signatures: Dispatcher [employer] EDMS [employer], PAINTER SET-C PAINTER SET-Goldy Cameron, RN RN bp Corrections: (The following items were deleted from the chart) 13:30 13:30 BASIC METABOLIC PANEL+C.LAB.BRZ ordered. EDMS EDMS 13:30 13:30 CBC+H.LAB.BRZ ordered. EDMS EDMS 13:30 13:30 HEPATIC FUNCTION+C.LAB.BRZ ordered. EDMS EDMS 13:30 13:30 MAGNESIUM+C.LAB.BRZ ordered. EDMS EDMS 13:30 13:30 PROTIME (+INR)+COAG.LAB.BRZ ordered. EDMS EDMS 13:30 13:30 PTT, ACTIVATED+COAG.LAB.BRZ ordered. EDMS EDMS 13:30 13:30 Troponin High Sensitivity+C.LAB.BRZ ordered. EDMS EDMS 13:30 13:30 Urinalysis+U.LAB.BRZ ordered. EDMS EDMS 13:31 13:30 Chest Single View+RAD.RAD.BRZ ordered. EDMS EDMS 15:01 13:30 IV Saline Lock ordered. kb bp 15:02 13:30 Labs collected and sent ordered. kb bp
[2024-07-29 16:57] VITALS: TEMP 98; O2SAT 98
[2024-07-29 17:00] VITALS: BP 132/80
== END 2024-07-29 16:29 | disposition home or self-care (01) ==
LOC: ER 13:04
DX: R55 Syncope and collapse (principal); J44.9 Chronic obstructive pulmonary disease, unspecified; I50.9 Heart failure, unspecified; Z95.818 Presence of other cardiac implants and grafts; Z95.810 Presence of automatic (implantable) cardiac defibrillator
CPT/HCPCS: 81001; 71045; J7030